=== PATIENT | female | born 1960 | race African-American/Black ===

== ENCOUNTER 2017-09-15 13:20 | Inpatient (IN) | payer MEDICARE ==
--- NOTE | 2017-09-15 13:56 | Consultation ---
History of Present Illness Consult date: 09/15/17 Requesting physician: LES LAWSON Consult reason: bradycardia History of present illness: The pt is a 57 YO female with a past medical history significant for ESRD on HD , s/p kidney transplant, COPD on home O2, HTN, diastolic dysfunction, subdural hemorrhage. She is followed in our office by Dr. Camarillo. She presented with c/o low BP and slow HR. Pt is lethargic on evaluation and thus HPI is obtained per pt's sister at bedside. Per pt's sister, pt has been in her usual state of health until this AM, when she began to c/o left-sided chest pain. Pt's sister took pt's BP at home and BP was reportedly found to be 60s/30s with HR in 20s and EMS was called. Upon EMS arrival, pt's HR was found to be in 20s and external pacing pads were applied. Admission EKG demonstrated CHB with HR of 27. On evaluation, pt is 100% subcutaneously paced at 60bpm and requiring dopamine gtt for hypotension. Pt remains lethargic. Admission serum K+ 4.7; Ca 9.8; Mg 2.4; BUN/CR 58/9.6. Per pt's sister at bedside, pt has not missed any scheduled dialysis and last underwent HD on Friday. She undergoes HD on MWF schedule, forest supervisor is Dr. Blake. The most recent medication reconciliation in our office does not show that pt was taking any beta blockers - her anti- hypertensive regimen included hydralazine and amlodipine per our records. However, per ED MD, pt may have been taking coreg according to ED medication reconciliation. Pt was taken to laborer general for emergent TVP placement. Echo done 03/2016 showed EF 55-60%, trace MR, mild TR, mild LVH, impaired relaxation. Past History Past Medical History: COPD, dialysis, ESRD, hypertension, stroke Past Surgical History: Other (s/p kidney transplant) Social history: denies: smoking, alcohol abuse, prescription drug abuse Medications and Allergies Allergies Allergy/AdvReac Type Severity Reaction Status Date / Time heparin Allergy Intermediate Itching Verified 02/22/16 09:32 lisinopril AdvReac Mild COUGH Verified 02/22/16 09:32 Home Medications Medication Instructions Recorded Confirmed Last Taken Type ALBUTEROL Inhaler [ProAir HFA 2 puff IH QID PRN 02/08/16 02/08/16 02/21/16 History Inhaler] ALBUTEROL NEB's [Proventil 0.083% 2.5 mg IH TID PRN 02/08/16 02/08/16 02/21/16 History NEBS] Carvedilol [Coreg] 3.125 mg PO BID 02/08/16 02/08/16 02/22/16 07:00 History Fluticasone [Flonase] 1 spray NS QDAY 02/08/16 02/08/16 02/21/16 History Ipratropium [Atrovent NEB] 0.5 mg IH Q6HRT 02/08/16 02/08/16 02/21/16 History Loratadine [Claritin] 10 mg PO DAILY 02/08/16 02/08/16 02/21/16 History Pantoprazole [Protonix TAB] 20 mg QDAY 02/08/16 02/22/16 02/21/16 History Tadalafil (Nf) [Adcirca (Nf)] 20 mg PO QDAY 02/08/16 02/08/16 02/21/16 History amLODIPine [Norvasc] 5 mg PO DAILY 02/08/16 02/22/16 02/21/16 History Cinacalcet [Sensipar] 30 mg PO DAILY 02/22/16 02/22/16 02/21/16 History Gabapentin [Neurontin] 1 tab PO 3XW 02/22/16 02/22/16 02/21/16 History HYDROcodone/APAP 7.5-325 [[place] 1 each PO Q6HR PRN #50 tablet 02/22/16 Unknown Rx 7.5/325] Losartan Potassium 100 mg PO DAILY 02/22/16 02/22/16 02/22/16 07:00 History Sertraline [Zoloft] 1 tab PO DAILY 02/22/16 02/22/16 02/21/16 History Sevelamer Carbonate [Renvela] 4 tab PO TID 02/22/16 02/22/16 02/21/16 History Sodium Bicarbonate 1 tab PO DAILY 02/22/16 02/22/16 02/21/16 History Zolpidem Tartrate 10 mg PO QHS 02/22/16 02/22/16 02/21/16 History Review of Systems ROS unobtainable: due to mental status Physical Examination General appearance: other (lethargic) HEENT: Positive: PERRL, Normocephaly, Mucus Membranes Moist Neck: Positive: neck supple, trachea midline Cardiac: Positive: S1/S2, Systolic Murmur, Bradycardia Lungs: Positive: Decreased Breath Sounds Neuro: Positive: Other (lethargic) Abdomen: Positive: Soft. Negative: Tender Skin: Positive: Clear. Negative: Rash, Wound Musculoskeletal: No Fluid Collection, No Pain, Normal Range of Motion Extremities: Absent: edema Results 09/15/17 13:44 09/15/17 13:44 - Imaging and Cardiology Echo: report reviewed (03/2016: EF 55-60%, trace MR, mild TR, mild LVH, impaired relaxation. ) EKG: report reviewed, image reviewed EKG interpretations - Telemetry EKG Rhythm: 3rd Degree HB AV and intraventricular conduction: complete (3) AV block Assessment and Plan Assessment: CHB - s/p TVP placement Hypotension - requiring dopamine gtt Chest pain ESRD on HD - s/p kidney transplant HTN COPD on home O2 H/o subdural hemorrhage 5 years ago Plan: Pt s/p TVP placement this afternoon. However, during TVP placement, pt converted from CHB to NSR with HR 60s. Will continue with TVP at backup rate of 40bpm and monitor closely. Cont dopamine gtt. Trend Torrie. F/u echo. Cont to hold all AV akila blocking agents. Tx to CCU. Pt to be admitted per hospitalists. Obtain EP consultation for PPM candidacy. Assessment and plan reviewed with pt's sister at bedside. The patient has been seen in conjunction with Dr. Rosenberg who agrees with the assessment and plan of care.
--- NOTE | 2017-09-15 13:57 | Emergency Department Report ---
HPI - General Time Seen by Provider: 09/15/17 13:35 - HPI HPI: This 57-year-old [place] female who presents to the emergency department by EMS with complaint of left-sided chest pain, hypotension and bradycardia. The patient has end-stage renal disease on hemodialysis on Friday/Friday/Friday and did have her dialysis on Friday. However she did not have dialysis today secondary to her complaint of chest pain, hypotension and still heart rate. She also has a history of COPD and is oxygen dependent at 3 L by nasal cannula. She was given a 150 mL bolus of IV fluid by EMS and placed on a external pacer and was given 2 mg of Versed to attempt to tolerate the pacing. Her primary care physician is Dr. Jennifer Cuello, her lock tender is Dr. Merino, her construction checker is Dr. Dolan. The patient herself is a poor historian secondary to her current medical condition but her sister is currently bedside providing some information. ED Past Medical Hx - Past Medical History Hx Hypertension: Yes Hx Congestive Heart Failure: (PULMONARY HTN) Hx Diabetes: No Hx GERD: Yes (SOMETIMES) Hx Renal Disease: (KIDNEY TRANSPLANT MARGARET 2000) Hx COPD: Yes - Social History Smoking Status: Never Smoker - Medications Home Medications: Home Medications Medication Instructions Recorded Confirmed Last Taken Type ALBUTEROL Inhaler [ProAir HFA 2 puff IH QID PRN 02/08/16 02/08/16 02/21/16 History Inhaler] ALBUTEROL NEB's [Proventil 0.083% 2.5 mg IH TID PRN 02/08/16 02/08/16 02/21/16 History NEBS] Carvedilol [Coreg] 3.125 mg PO BID 02/08/16 02/08/16 02/22/16 07:00 History Fluticasone [Flonase] 1 spray NS QDAY 02/08/16 02/08/16 02/21/16 History Ipratropium [Atrovent NEB] 0.5 mg IH Q6HRT 02/08/16 02/08/16 02/21/16 History Loratadine [Claritin] 10 mg PO DAILY 02/08/16 02/08/16 02/21/16 History Pantoprazole [Protonix TAB] 20 mg QDAY 02/08/16 02/22/16 02/21/16 History Tadalafil (Nf) [Adcirca (Nf)] 20 mg PO QDAY 02/08/16 02/08/16 02/21/16 History amLODIPine [Norvasc] 5 mg PO DAILY 02/08/16 02/22/16 02/21/16 History Cinacalcet [Sensipar] 30 mg PO DAILY 02/22/16 02/22/16 02/21/16 History Gabapentin [Neurontin] 1 tab PO 3XW 02/22/16 02/22/16 02/21/16 History HYDROcodone/APAP 7.5-325 [[place] 1 each PO Q6HR PRN #50 tablet 02/22/16 Unknown Rx 7.5/325] Losartan Potassium 100 mg PO DAILY 02/22/16 02/22/16 02/22/16 07:00 History Sertraline [Zoloft] 1 tab PO DAILY 02/22/16 02/22/16 02/21/16 History Sevelamer Carbonate [Renvela] 4 tab PO TID 02/22/16 02/22/16 02/21/16 History Sodium Bicarbonate 1 tab PO DAILY 02/22/16 02/22/16 02/21/16 History Zolpidem Tartrate 10 mg PO QHS 02/22/16 02/22/16 02/21/16 History ED Review of Systems ROS: Stated complaint: SLOW HEART RATE Other details as noted in HPI Comment: Unobtainable due to pts medical conditions Cardiovascular: chest pain Physical Exam - Physical Exam Physical Exam: GENERAL: Patient is ill-appearing. HENT: Normocephalic. Atraumatic. Patient has moist mucous membranes. EYES: Extraocular motions are intact. Pupils equal reactive to light bilaterally. NECK: Supple. Trachea is midline. CHEST/LUNGS: Clear to auscultation. There is no respiratory distress noted. HEART/CARDIOVASCULAR: Regular. There is significant bradycardia. There is no murmur. ABDOMEN: Abdomen is soft, nontender. Patient has normal bowel sounds. There is no abdominal distention. SKIN: Skin is warm and dry. NEURO: The patient is very fatigued but is arousable. The patient is responsive to her sister in [place] but is not following many commands. Withdraws from painful stimuli. MUSCULOSKELETAL: There is no tenderness or deformity. There is no evidence of acute injury. ED Course - Consultations Consultation #1: The patient's lock tender is Dr. Merino, [facility] was contacted and the PA Fatemeh Harrell came down to see the patient. She agrees with the assessment that the EKG shows complete heart block and the patient will be taken to the collaborating supervising physician for a trans-venous pacer. 09/15/17 13:55 ED Medical Decision Making - Lab Data Result diagrams: 09/15/17 13:44 09/15/17 13:44 - EKG Data -: EKG Interpreted by Me - EKG Data When compared to previous EKG there are: previous EKG unavailable Interpretation: other (EKG appears to be a third-degree/complete heart block with a rate of 27 weeks per minute.) - Radiology Data Radiology results: image reviewed interpreted by me: Chest x-ray shows some mild cardiomegaly and pulmonary vascular congestion. No pneumonia or pneumothorax. - Medical Decision Making This patient presented from home with complaint of some chest pain, hypotension and bradycardia. EKG showed a complete heart block. She was given some atropine which only worked for about 1 minute and therefore she was placed back on external pacemaker. As there was suspicion that the patient might have hyperkalemia, and while waiting for the lab values to return, the patient was given some calcium chloride to stabilize the myocardium. She was placed on a dopamine drip secondary to her hypotension. Cardiology was contacted and came bedside and decided to take her to the collaborating supervising physician for transvenous pacemaker placement. She will most likely go from there to the ICU. Nephrology has been contacted. Patient accepted for admission by the hospitalist, Dr. Zhao. Critical Care Time: Yes Critical care time in (mins) excluding proc time.: 35 Critical care attestation.: If time is entered above; I have spent that time in minutes in the direct care of this critically ill patient, excluding procedure time. Critical care time was spent on this patient and doing her initial evaluation, multiple re- evaluations, ordering of ACLS medications and pressors, monitoring and supervising transcutaneous pacemaking, discussion with the lock tender and hospitalist services. Critical Care Time: 35 minutes ED Disposition Clinical Impression: Complete heart block, Bradycardia, ESRD on dialysis Chest pain Qualifiers: Chest pain type: unspecified Qualified Code(s): R07.9 - Chest pain, unspecified Hypotension Qualifiers: Hypotension type: unspecified hypotension type Qualified Code(s): I95.9 - Hypotension, unspecified Disposition: DC-09 OP ADMIT IP TO THIS HOSP Is pt being admited?: Yes Condition: Serious Instructions: Chest Pain (ED) Time of Disposition: 15:23
[2017-09-15 14:09] LABS: Hematocrit 35.1 % (30.3-42.9); Hemoglobin 10.9 gm/dl (10.1-14.3); Mean Corpuscular Volume 96 fl (79-97); Red Blood Count 3.67 M/mm3 (3.65-5.03)
[2017-09-15 14:10] LABS: Basophils # (Auto) 0.1 K/mm3 (0.0-0.1); Basophils % (Auto) 1.3 % (0.0-1.8); Eosinophils % (Auto) 0.6 % (0.0-4.3); Lymphocytes # (Auto) 0.9 K/mm3 (1.2-5.4); Mean Corpuscular HGB Conc 31 % (30-34); Mean Corpuscular Hemoglobin 30 pg (28-32); Monocytes # (Auto) 0.3 K/mm3 (0.0-0.8); Monocytes % (Auto) 5.9 % (0.0-7.3); Platelet Count 86 K/mm3 (140-440); Red Cell Distribution Width 16.8 % (13.2-15.2)
[2017-09-15 14:14] LABS: INR 1.24 (0.87-1.13)
[2017-09-15 14:15] LABS: Partial Thromboplastin Time 37.3 Sec. (24.2-36.6)
--- NOTE | 2017-09-15 14:20 | XRay Report ---
AP CHEST: HISTORY: chest pain Compared to 12/29/11. Mild cardiomegaly and central pulmonary venous congestion are again noted. There is poor inspiration but the lungs are grossly clear. No large pleural effusion or pneumothorax. Borderline osteopenia. IMPRESSION: Mild cardiomegaly and pulmonary venous congestion.
[2017-09-15 14:25] LABS: Albumin 3.3 g/dL (3.9-5); Calcium 9.8 mg/dL (8.4-10.2); Magnesium 2.4 mg/dL (1.7-2.3)
[2017-09-15] MEDS ORDERED: NACL 0.9% 500 ML 500 ML ONE ×2 (14:46)
[2017-09-15] MEDS ORDERED: XYLOCAINE 2% INFILTRATI ONE (14:46)
[2017-09-15] MEDS ORDERED: ZOFRAN ONE (14:55)
[2017-09-15] MEDS ORDERED: ALUM-MAG HYDROX-SIMETH 200-200-20MG/5ML PO PRN (15:43)
--- NOTE | 2017-09-15 15:44 | History and Physical Report ---
History of Present Illness Chief complaint: Chest Pain History of present illness: 57 YO Female with HTN, ESRD on HD(M,W,F), COPD, Chronic Respiratory Failure on 3L Home oxygen, Diastolic CHF, Pulmonary HTN, SDH presents to ED for evaluation. Pt unable to provide history due to lethargy and confusion. Pt history taken from medical record, and ED staff. As per staff, Pt experienced pain in her chest this morning, an a subsequent blood pressure check showed a systolic BP in the 60's. EMS notified, and upon arrival the patient was found to have a heart rate in the 20/s, and was externally paced and transported to [facility] for evaluation and treatment. Pt seen and evaluated in ED and found to be in extremis. Pt subcutaneously paced at 60bpm and initiated on dopamine drip for cardiogenic shock. Pt is lethargic but is able to protect her airway. Cardiology consulted in ED and petient taken urgently to laborer/grade check. Pt subsequently admitted to ICU. Past History Past Medical History: COPD, dialysis, ESRD, hypertension, stroke Past Surgical History: Other (s/p kidney transplant) Social history: denies: smoking, alcohol abuse, prescription drug abuse Family history: hypertension Medications and Allergies Allergies Allergy/AdvReac Type Severity Reaction Status Date / Time heparin Allergy Intermediate Itching Verified 02/22/16 09:32 lisinopril AdvReac Mild COUGH Verified 02/22/16 09:32 Home Medications Medication Instructions Recorded Confirmed Last Taken Type ALBUTEROL NEB's [Proventil 0.083% 2.5 mg IH TID PRN 02/08/16 02/08/16 02/21/16 History NEBS] Carvedilol [Coreg] 3.125 mg PO BID 02/08/16 02/08/16 02/22/16 07:00 History Fluticasone [Flonase] 1 spray NS QDAY 02/08/16 02/08/16 02/21/16 History Ipratropium [Atrovent NEB] 0.5 mg IH Q6HRT 02/08/16 02/08/16 02/21/16 History Pantoprazole [Protonix TAB] 20 mg QDAY 02/08/16 02/22/16 02/21/16 History Tadalafil (Nf) [Adcirca (Nf)] 20 mg PO QDAY 02/08/16 02/08/16 02/21/16 History Cinacalcet [Sensipar] 30 mg PO DAILY 02/22/16 02/22/16 02/21/16 History Gabapentin [Neurontin] 1 tab PO 3XW 02/22/16 02/22/16 02/21/16 History Losartan Potassium 100 mg PO DAILY 02/22/16 02/22/16 02/22/16 07:00 History Sertraline [Zoloft] 1 tab PO DAILY 02/22/16 02/22/16 02/21/16 History Sevelamer Carbonate [Renvela] 4 tab PO TID 02/22/16 02/22/16 02/21/16 History Sodium Bicarbonate 1 tab PO DAILY 02/22/16 02/22/16 02/21/16 History Zolpidem Tartrate 10 mg PO QHS 02/22/16 02/22/16 02/21/16 History Omeprazole [Omeprazole] 20 mg PO DAILY 09/15/17 09/15/17 09/14/17 History 20mg Review of Systems ROS unobtainable: due to mental status Exam - Constitutional Vitals: Temp Pulse Resp BP Pulse Ox 97.5 F L 60 15 92/57 100 09/15/17 13:20 09/15/17 14:11 09/15/17 14:24 09/15/17 14:06 09/15/17 14:24 General appearance: Present: severe distress - EENT Eyes: Present: PERRL ENT: hearing intact, clear oral mucosa - Neck Neck: Present: supple, normal ROM - Respiratory Respiratory effort: labored Respiratory: bilateral: diminished - Cardiovascular Rhythm: other (bradycardial) Heart Sounds: Present: S1 & S2 - Extremities Extremities: pulses symmetrical, No edema Peripheral Pulses: within normal limits - Abdominal General gastrointestinal: Present: soft, non-tender, non-distended, normal bowel sounds Female genitourinary: Present: normal - Integumentary Integumentary: Present: clear, dry, decreased turgor - Musculoskeletal Musculoskeletal: generalized weakness - Psychiatric Psychiatric: no intact judgment & insight, no memory intact - Neurologic Neurologic: no gait normal Results - Labs CBC & Chem 7: 09/15/17 13:44 09/15/17 13:44 Labs: Abnormal lab results 09/15/17 09/15/17 09/15/17 Range/Units 13:44 13:44 13:44 RDW 16.8 H (13.2-15.2) % Plt Count 86 L (140-440) K/mm3 Lymph # 0.9 L (1.2-5.4) K/mm3 Seg Neutrophils % 72.2 H (40.0-70.0) % PT 16.3 H (12.2-14.9) Sec. INR 1.24 H (0.87-1.13) APTT 37.3 H (24.2-36.6) Sec. Chloride 107.2 H (98-107) mmol/L Carbon Dioxide 19 L (22-30) mmol/L BUN 58 H (7-17) mg/dL Creatinine 9.6 H (0.7-1.2) mg/dL Glucose 173 H (65-100) mg/dL Magnesium 2.40 H (1.7-2.3) mg/dL Total Protein 5.3 L (6.3-8.2) g/dL Albumin 3.3 L (3.9-5) g/dL Assessment and Plan - Patient Problems (1) Cardiogenic shock Current Visit: Yes Status: Acute Plan to address problem: Pt admitted to ICU, IV pressor support, IVF resuscitation, Cardiology consulted , Pt taken urgently to laborer/grade check, monitor bp q shift, telemetry monitoring, The high probability of a clinically significant, sudden or life threatening deterioration of the [cardiac, respiratory, renal] system(s) required my full and direct attention, intervention and personal management. The aggregate critical care time was [66] minutes. This time is in addition to time spent performing reported procedures but includes the following: [x] Data Review and interpretation [x] Patient assessment and monitoring of vital signs [x] Documentation [x] Medication orders and management (2) CHB (complete heart block) Current Visit: Yes Status: Acute Plan to address problem: Cardiology consulted, Transcutaneous pacing, Pt taken urgently to laborer/grade check for intervention. (3) Acute respiratory failure Current Visit: Yes Status: Acute Qualifiers: Respiratory failure complication: hypoxia Qualified Code(s): J96.01 - Acute respiratory failure with hypoxia Plan to address problem: Supplemental oxygen,nebs, aspiration precautions, pulmonary toilet, pulmonary consulted, NIPPV as clinically indicated, (4) ESRD (end stage renal disease) Current Visit: Yes Status: Acute Plan to address problem: Nephrology consulted for dialysis, monitor uop q shift, dialysis when clinically stable. (5) Encephalopathy Current Visit: Yes Status: Acute Plan to address problem: Metabolic encephalopathy: dialysis as per renal team, supportive care, treat cardiogenic shock, (6) DVT prophylaxis Current Visit: Yes Status: Acute
[2017-09-15] MEDS ORDERED: CALCIUM CHLORIDE IV ONE (16:00)
[2017-09-15] MEDS ORDERED: ATROPINE 0.1% (CARDIAC) ONE (16:00)
[2017-09-15] MEDS ORDERED: INTROPIN DRIP 800 MG/D5W 250 ML IV ONE (16:00)
--- NOTE | 2017-09-15 16:11 | Event Note ---
I was called about the patient came in here with complete heart block Patient has gone to the cardiac catheter lab Chart was reviewed in entirety potassium is currently normal There is no indication for acute emergent dialysis We will make an attempt to evaluate the patient in the morning
--- NOTE | 2017-09-15 17:58 | Cardiac Catherization Report ---
TEMPORARY PACEMAKER INSERTION: HISTORY OF PRESENT ILLNESS: The patient is a 57-year-old [place] female with history of end-stage renal disease on hemodialysis, status post kidney transplant, history of COPD, on home oxygen, history of essential hypertension, history of subdural hemorrhage being followed by Dr. Jean in the office, was noted to lethargic, and was noted by his sister that the patient is complaining of chest pain and blood pressure was found to be low and heart rate was found to be low, heart rate in 20s and blood pressures 60/30. Paramedics were called and heart rate was found to be in 20s and external pacemaker packs were applied. Admission EKG showed complete heart block with heart rate up to 27 beats per minute. The patient was started on dopamine and the patient was found to be blood pressure in 60 systolic. Because of this, we were called in consultation. Hence, a temporary pacemaker was planned because of low heart rate. INDICATION: for temporary pacemaker is hypotension with complete AV block and underlying escape junctional beats. TEMPORARY PACEMAKER PROCEDURE: While the patient was brought to the catheterization laboratory, patient is lethargic,hence no IV sedation was given ; however, she is nauseated, requiring 4 mg of Zofran. The patient also is vomiting clear liquid requiring some suctioning. Otherwise, the patient was comfortable. The patient was prepared in standard fashion. Right groin was prepared with Betadine solution and sterile drapes were applied. Local anesthesia was given in the right groin area using 2% Xylocaine. Right femoral vein puncture was made without difficulty using a 5-[place] micropuncture needle. A 6-[place] sheath was introduced. Subsequently, a 5-[place] balloon tipped temporary pacemaker was advanced under fluoroscopy into the right ventricular apex. Once in good position, transcutaneous pacemaker venous pacing was discontinued. The patient's heart rate in 60s, in sinus rhythm. Hence, temporary pacemaker settings were tested while the heart rate is at 70 beats per minute. Good capture was noted 0.5 mV. The patient, as mentioned above, has underlying sinus rhythm in 60s. Temporary pacemaker settings were left at mV of 2.0 with a minimal ventricular rate of 40 beats per minute. Temporary pacemaker was secured to the right groin. Right leg will be held stable in straight position with restrains. The patient tolerated the procedure well. No untoward complications were noted. At the end of the procedure, the patient is a regular sinus rhythm at 60 beats per minute. FINAL IMPRESSION: Uncomplicated temporary pacemaker using right femoral vein was inserted for complete AV block and hypotension, heart rate in 20s, mostly escape rhythm at 20 beats per minute. JOB# [id number] IGLESIA/CANDELARIA HINSON
[2017-09-15 18:42] LABS: Creatine Kinase MB 1.5 ng/mL (0.0-4.0)
--- NOTE | 2017-09-15 19:29 | Event Note ---
Date: 09/15/17 57 Female admitted with complete heart block HR 27 with past medical history of ESRD on HD (fistula on RUE, abandoned fistula LUE, COPD on home oxygen, Scoliosis, hypertension, Chronic diastolic heart failure, history of subdural hematoma. Pt does not speak much Chinese. I spoke at length with the patients sister regarding options. Recommend ECHO, Left upper extremity venogram to evaluate patency.
[2017-09-15] MEDS: PERCOCET 5/325 PO PRN (21:38)
[2017-09-15] MEDS: DUONEB *Not for PRN Use IH SCH (22:11)
[2017-09-16] MEDS: DUONEB *Not for PRN Use IH SCH ×4 (02:39→20:09)
[2017-09-16] MEDS: PERCOCET 5/325 PO PRN ×4 (03:41→21:11)
[2017-09-16] MEDS: APRESOLINE IV PRN ×3 (03:44→17:37)
[2017-09-16 05:20] LABS: Calcium 9.6 mg/dL (8.4-10.2); Magnesium 2.5 mg/dL (1.7-2.3)
[2017-09-16] MEDS: D50W (25GM) Vial IV PRN (07:50)
[2017-09-16] MEDS ORDERED: VASELINE LIP THERAPY TP PRN (07:56)
--- NOTE | 2017-09-16 10:23 | Consultation ---
History of Present Illness - History of Present Illness Thank you for the consultation patient was evaluated today. Social information from patient's sister over the phone, dialysis nurse practioner Allyson Walton History of present illness Patient is a 57-year-old [place] female who is currently in maintenance hemodialysis, presented to the hospital with complaints of significant hypotension and bradycardia according to sister her systolic blood pressure wasn 't 63 range and heart rate was in 30s she called EMS and transported her to ER where she was noted to be in complete heart block and was immediately taken to the Cryptological Technician. Patient has a transvenous pacemaker placed potassium was normal. According to patient's sister she does not comply with medical advise and often time that would include poor compliance with diet lifestyle fluid etc this was also confirmed with my dialysis nurse practitioner. patient is currently on maintenance hemodialysis Friday and Friday Patient does complain of mild shortness of breath she is currently in the ICU set up Past medical history is significant for end-stage renal disease currently on maintenance hemodialysis Anemia and end-stage renal disease Secondary hyperparathyroidism Chronic noncompliance with fluid diet medical advice Allergies: heparin and lisinopril Social history: no history of recent alcohol drug or tobacco use Family history: noncontributory for renal lipid disorder Review of system is positive for profound hypotension bradycardia according to sister heart rate was down to 36 range and blood pressure wasn't 60 systolic Patient is very poorly compliant with fluid and often time does carry excess amount of fluid during dialysis Complete review of systems obtained pertinent positive above other's review of systems negative Physical examination General: No acute distress HEENT: Oral mucosa moist no pharyngeal erythema no pallor or icterus no uremic order Neck: Supple no evidence of any thyromegaly trachea midline no JVD Chest: Clear to auscultation no crackles are also wheezes anteriorly Heart: Regular rate and rhythm S1-S2 heard no S3-S4 Abdomen: Soft nontender no renal bruit no CVA tenderness no suprapubic fullness no organomegaly Extremity: Minimal edema dry skin no peripheral cyanosis pulses palpable Neurological: Alert awake follows command grossly nonfocal examination Back: Nontender thoracolumbar spine Musculoskeletal: No joint effusion noted Skin: No petechial rash/noted Assessment and plan 1. end-stage renal disease: Patient likely will require a short treatment today and then will follow up with her regular treatment tomorrow depending on how she tolerates the treatment today, potassium upon arrival was 4.7, 2.anemia and end-stage renal disease: To monitor and follow, hemoglobin 10.9 to follow 3.secondary hyperparathyroidism: Monitor and follow educated about avoiding processed food keeping phosphorus under 5 and PTH under 600 4.chronically noncompliant patient counseled and educated discussed with patient 's sister over the phone 5.mild tachycardia today discussed with patient's sister with patient's consent plan of renal care was discussed at length all questions were answered Patient needs to be more compliant and follow the medical advice in the absence of which overall prognosis will be very poor mortality risk will be high Nature and issue of renal-related issues were discussed with patient, all questions were answered and simple Indian We'll continue to follow and make recommendations from renal standpoint If you have any questions please feel free to contact me at [phone] Past History Past Medical History: COPD, dialysis, ESRD, hypertension, stroke Past Surgical History: Other (s/p kidney transplant) Social history: denies: smoking, alcohol abuse, prescription drug abuse Family history: hypertension Medications and Allergies Allergies Allergy/AdvReac Type Severity Reaction Status Date / Time heparin Allergy Intermediate Itching Verified 02/22/16 09:32 lisinopril AdvReac Mild COUGH Verified 02/22/16 09:32 Home Medications Medication Instructions Recorded Confirmed Last Taken Type ALBUTEROL NEB's [Proventil 0.083% 2.5 mg IH TID PRN 02/08/16 09/15/17 09/14/17 History NEBS] 2.5mg Carvedilol [Coreg] 25 mg PO BID 02/08/16 09/15/17 09/14/17 History 25mg Fluticasone [Flonase] 1 spray NS QDAY 02/08/16 09/15/17 09/14/17 History 1 Ipratropium [Atrovent NEB] 0.5 mg IH Q6HRT 02/08/16 09/15/17 09/14/17 History 1 Pantoprazole [Protonix TAB] 40 mg PO QDAY 02/08/16 09/15/17 09/14/17 History 40mg Tadalafil (Nf) [Adcirca (Nf)] 20 mg PO QDAY 02/08/16 09/15/17 09/14/17 History 20mg Cinacalcet [Sensipar] 30 mg PO DAILY 02/22/16 09/15/17 09/14/17 History 30mg Gabapentin [Neurontin] 1 tab PO 3XW 02/22/16 09/15/17 09/14/17 History 1 Losartan Potassium 100 mg PO DAILY 02/22/16 09/15/17 09/14/17 History 100mg Sertraline [Zoloft] 1 tab PO DAILY 02/22/16 09/15/17 09/14/17 History 1 Sevelamer Carbonate [Renvela] 4 tab PO TID 02/22/16 09/15/17 09/14/17 History 4 Sodium Bicarbonate 1 tab PO DAILY 02/22/16 09/15/17 09/14/17 History 1 Zolpidem Tartrate 10 mg PO QHS 02/22/16 09/15/17 09/14/17 History 10mg Diltiazem Xt [Taztia Xt] 180 mg PO DAILY 09/15/17 09/15/17 09/14/17 History 180mg Omeprazole [Omeprazole] 20 mg PO DAILY 09/15/17 09/15/17 09/14/17 History 20mg cloNIDine [Catapres] 0.2 mg PO TID 09/15/17 09/15/17 09/14/17 History 0.2mg Active Meds: Active Medications Al Hydrox/Mg Hydrox/Simethicone (Alum-Mag Hydrox-Simeth [id number]/5ml) 30 ml PO Q4H PRN PRN Reason: Indigestion Albuterol/Ipratropium (Duoneb *Not For Prn Use*) 1 ampul IH Q6HRT [facility] Last Admin: 09/16/17 09:00 Dose: 1 ampul Bisacodyl (Dulcolax) 10 mg WI QDAY PRN PRN Reason: constipation unrelieved by MOM Dextrose (D50w (25gm) Vial) 25 gm IV PRN PRN PRN Reason: Hypoglycemia Last Admin: 09/16/17 07:50 Dose: 25 gm Hydralazine HCl (Apresoline) 10 mg IV Q6HR PRN PRN Reason: Systolic B/p greather than 160 Last Admin: 09/16/17 09:55 Dose: 10 mg Hydrophilic Ointment (Vaseline Lip Therapy) 1 applic TP DIRECT PRN PRN Reason: DRY LIPS Magnesium Hydroxide (Milk Of Magnesia) 30 ml PO Q4H PRN PRN Reason: Constipation Oxycodone/Acetaminophen (Percocet 5/325) 1 tab PO Q6H PRN PRN Reason: Pain Last Admin: 09/16/17 09:55 Dose: 1 tab Exam - Vital Signs Vital signs: Vital Signs Pulse Resp 54 L 17 09/15/17 13:14 09/15/17 13:14 Results - Lab Results 09/15/17 13:44 09/16/17 04:04 Most recent lab results Calcium 9.6 mg/dL (8.4-10.2) 09/16/17 04:04 Magnesium 2.50 mg/dL (1.7-2.3) H 09/16/17 04:04
--- NOTE | 2017-09-16 10:34 | Progress Note ---
Assessment and Plan /Cardiogenic shock, improved Pt admitted to ICU, started IV pressor support with dobutamin ( off since last night) Cardiology following, Pt is s/p TVP placement, /HTN, uncontrolled hold all BB, CCB started on hydralazine cont to monitor /Acute on chronic respiratory failure likely from cardiogenic shock, CXR suggestive for pulmonary congestion she is on home O2 cont supplemental O2, duenebs /COPD cont O2 n/c. nebulizer /CHB (complete heart block) Cardiology consulted, s/p Transcutaneous pacing, Pt taken urgently to tutorial laboratory supervisor for intervention. Now on TVP /ESRD has h/o renal transplant Nephrology consulted for dialysis, monitor uop q shift, dialysis likely today. /H/o hemorrhagic CVA shows no focal deficit now closely monitor with frequent neuro assessment / Encephalopathy likely Metabolic encephalopathy: appears more alert and awake today dialysis as per renal team, supportive care, treat cardiogenic shock, /DVT prophylaxis lovenox The high probability of a clinically significant, sudden or life threatening deterioration of the [cardiac, respiratory, renal] system(s) required my full and direct attention, intervention and personal management. The aggregate critical care time was [66] minutes. This time is in addition to time spent performing reported procedures but includes the following: [x] Data Review and interpretation [x] Patient assessment and monitoring of vital signs [x] Documentation [x] Medication orders and management Brief history: The pt is a 57 YO female with a past medical history significant for ESRD on HD, s/p kidney transplant, COPD on home O2, HTN, diastolic dysfunction, subdural hemorrhage is followed by Dr. Camarillo presented with c/o low BP and slow HR. Per pt's sister, BP at home was reportedly found to be 60s/ 30s with HR in 20s and EMS was called. Upon EMS arrival, pt's HR was found to be in 20s and external pacing pads were applied and initiated dopamine gtt for hypotension. Pt was then taken to tutorial laboratory supervisor for emergent TVP placement. Radiological test: CXR - mild cardiomegaly and pulmonary venous congestion Hospitalist Physical exam: GENERAL: elderly female lying on bed appeared to be lethargic. HEENT: Normocephalic. Atraumatic. No conjunctival congestion or icterus. Patient has very dry mucous membranes. NECK: Supple. Trachea midline. CHEST/LUNGS: few crackles auscultated bilaterally, breathing nonlabored. on n/c HEART/CARDIOVASCULAR: S1 and S2 positive. ABDOMEN: Abdomen is soft, nontender. Patient has normal bowel sounds. SKIN: There is no rash. Warm and dry. NEURO: No focal motor deficit. Follows command. MUSCULOSKELETAL: No joint effusion or tenderness. EXTRIMITY: No edema, no cyanosis or clubbing. TVP in place via right groin, site c/d/i with no evidence of bleeding. Subjective Date of service: 09/16/17 Interval history: Pt seen and examined Pt resting in bed, c/o headache. HR 90s, BPs elevated. No family at bedside. Pt has been NPO since PR for PPM placement. Objective - Constitutional Vitals: Vital Signs - 12hr 09/15/17 09/15/17 09/15/17 22:38 22:40 22:45 Temperature Pulse Rate 81 Pulse Rate [ Bilateral Throughout] Pulse Rate [ From Monitor] Pulse Rate [ Left Dorsalis Pedis] Pulse Rate [ Left Radial] Pulse Rate [ Right Dorsalis Pedis] Pulse Rate [ Right Radial] Respiratory 20 10 L Rate Respiratory Rate [Bilateral Throughout] Blood Pressure 146/68 O2 Sat by Pulse 95 93 Oximetry 09/15/17 09/15/17 09/15/17 22:50 23:00 23:10 Temperature Pulse Rate 78 76 77 Pulse Rate [ Bilateral Throughout] Pulse Rate [ From Monitor] Pulse Rate [ Left Dorsalis Pedis] Pulse Rate [ Left Radial] Pulse Rate [ Right Dorsalis Pedis] Pulse Rate [ Right Radial] Respiratory 14 14 12 Rate Respiratory Rate [Bilateral Throughout] Blood Pressure 146/68 136/68 136/68 O2 Sat by Pulse 93 94 95 Oximetry 09/15/17 09/15/17 09/15/17 23:20 23:30 23:40 Temperature Pulse Rate 76 86 78 Pulse Rate [ Bilateral Throughout] Pulse Rate [ From Monitor] Pulse Rate [ Left Dorsalis Pedis] Pulse Rate [ Left Radial] Pulse Rate [ Right Dorsalis Pedis] Pulse Rate [ Right Radial] Respiratory 13 14 13 Rate Respiratory Rate [Bilateral Throughout] Blood Pressure 136/68 136/68 136/68 O2 Sat by Pulse 95 95 92 Oximetry 09/15/17 09/16/17 09/16/17 23:50 00:00 00:10 Temperature 98.8 F Pulse Rate 77 80 78 Pulse Rate [ Bilateral Throughout] Pulse Rate [ 81 From Monitor] Pulse Rate [ 81 Left Dorsalis Pedis] Pulse Rate [ 81 Left Radial] Pulse Rate [ 81 Right Dorsalis Pedis] Pulse Rate [ 81 Right Radial] Respiratory 15 19 12 Rate Respiratory Rate [Bilateral Throughout] Blood Pressure 136/68 136/65 136/65 O2 Sat by Pulse 93 92 93 Oximetry 09/16/17 09/16/17 09/16/17 00:20 00:30 00:40 Temperature Pulse Rate 80 82 79 Pulse Rate [ Bilateral Throughout] Pulse Rate [ From Monitor] Pulse Rate [ Left Dorsalis Pedis] Pulse Rate [ Left Radial] Pulse Rate [ Right Dorsalis Pedis] Pulse Rate [ Right Radial] Respiratory 14 20 16 Rate Respiratory Rate [Bilateral Throughout] Blood Pressure 136/65 136/65 136/65 O2 Sat by Pulse 92 93 90 Oximetry 09/16/17 09/16/17 09/16/17 00:50 01:00 01:10 Temperature Pulse Rate 79 80 83 Pulse Rate [ Bilateral Throughout] Pulse Rate [ From Monitor] Pulse Rate [ Left Dorsalis Pedis] Pulse Rate [ Left Radial] Pulse Rate [ Right Dorsalis Pedis] Pulse Rate [ Right Radial] Respiratory 14 14 14 Rate Respiratory Rate [Bilateral Throughout] Blood Pressure 136/65 148/69 148/69 O2 Sat by Pulse 92 93 93 Oximetry 09/16/17 09/16/17 09/16/17 01:20 01:30 01:40 Temperature Pulse Rate 80 82 82 Pulse Rate [ Bilateral Throughout] Pulse Rate [ From Monitor] Pulse Rate [ Left Dorsalis Pedis] Pulse Rate [ Left Radial] Pulse Rate [ Right Dorsalis Pedis] Pulse Rate [ Right Radial] Respiratory 15 17 14 Rate Respiratory Rate [Bilateral Throughout] Blood Pressure 148/69 148/69 148/69 O2 Sat by Pulse 94 93 92 Oximetry 09/16/17 09/16/17 09/16/17 01:50 02:00 02:10 Temperature Pulse Rate 82 80 82 Pulse Rate [ Bilateral Throughout] Pulse Rate [ From Monitor] Pulse Rate [ Left Dorsalis Pedis] Pulse Rate [ Left Radial] Pulse Rate [ Right Dorsalis Pedis] Pulse Rate [ Right Radial] Respiratory 14 15 12 Rate Respiratory Rate [Bilateral Throughout] Blood Pressure 148/69 159/75 159/75 O2 Sat by Pulse 93 89 89 Oximetry 09/16/17 09/16/17 09/16/17 02:20 02:30 02:40 Temperature Pulse Rate 81 80 80 Pulse Rate [ Bilateral Throughout] Pulse Rate [ From Monitor] Pulse Rate [ Left Dorsalis Pedis] Pulse Rate [ Left Radial] Pulse Rate [ Right Dorsalis Pedis] Pulse Rate [ Right Radial] Respiratory 13 15 15 Rate Respiratory Rate [Bilateral Throughout] Blood Pressure 164/66 175/65 175/65 O2 Sat by Pulse 89 88 91 Oximetry 09/16/17 09/16/17 09/16/17 02:41 02:50 03:00 Temperature Pulse Rate 82 84 Pulse Rate [ 80 Bilateral Throughout] Pulse Rate [ From Monitor] Pulse Rate [ Left Dorsalis Pedis] Pulse Rate [ Left Radial] Pulse Rate [ Right Dorsalis Pedis] Pulse Rate [ Right Radial] Respiratory 13 16 Rate Respiratory 18 Rate [Bilateral Throughout] Blood Pressure 183/57 186/84 O2 Sat by Pulse 93 90 Oximetry 09/16/17 09/16/17 09/16/17 03:08 03:10 03:20 Temperature Pulse Rate 84 85 Pulse Rate [ 82 Bilateral Throughout] Pulse Rate [ From Monitor] Pulse Rate [ Left Dorsalis Pedis] Pulse Rate [ Left Radial] Pulse Rate [ Right Dorsalis Pedis] Pulse Rate [ Right Radial] Respiratory 15 15 Rate Respiratory 18 Rate [Bilateral Throughout] Blood Pressure 186/84 190/90 O2 Sat by Pulse 89 89 Oximetry 09/16/17 09/16/17 09/16/17 03:30 03:40 03:41 Temperature Pulse Rate 85 91 H Pulse Rate [ Bilateral Throughout] Pulse Rate [ From Monitor] Pulse Rate [ Left Dorsalis Pedis] Pulse Rate [ Left Radial] Pulse Rate [ Right Dorsalis Pedis] Pulse Rate [ Right Radial] Respiratory 12 12 18 Rate Respiratory Rate [Bilateral Throughout] Blood Pressure 193/91 193/91 O2 Sat by Pulse 91 91 Oximetry 09/16/17 09/16/17 09/16/17 03:44 03:50 04:00 Temperature Pulse Rate 85 86 87 Pulse Rate [ Bilateral Throughout] Pulse Rate [ From Monitor] Pulse Rate [ Left Dorsalis Pedis] Pulse Rate [ Left Radial] Pulse Rate [ Right Dorsalis Pedis] Pulse Rate [ Right Radial] Respiratory 16 14 Rate Respiratory Rate [Bilateral Throughout] Blood Pressure 193/91 183/84 170/82 O2 Sat by Pulse 89 90 Oximetry 09/16/17 09/16/17 09/16/17 04:10 04:20 04:30 Temperature Pulse Rate 86 86 87 Pulse Rate [ Bilateral Throughout] Pulse Rate [ From Monitor] Pulse Rate [ Left Dorsalis Pedis] Pulse Rate [ Left Radial] Pulse Rate [ Right Dorsalis Pedis] Pulse Rate [ Right Radial] Respiratory 16 12 13 Rate Respiratory Rate [Bilateral Throughout] Blood Pressure 170/82 174/78 169/82 O2 Sat by Pulse 89 91 92 Oximetry 09/16/17 09/16/17 09/16/17 04:40 04:41 04:50 Temperature Pulse Rate 86 85 Pulse Rate [ Bilateral Throughout] Pulse Rate [ From Monitor] Pulse Rate [ Left Dorsalis Pedis] Pulse Rate [ Left Radial] Pulse Rate [ Right Dorsalis Pedis] Pulse Rate [ Right Radial] Respiratory 13 19 13 Rate Respiratory Rate [Bilateral Throughout] Blood Pressure 169/82 156/82 O2 Sat by Pulse 92 93 Oximetry 09/16/17 09/16/17 09/16/17 05:00 05:10 05:20 Temperature Pulse Rate 91 H 88 87 Pulse Rate [ Bilateral Throughout] Pulse Rate [ From Monitor] Pulse Rate [ Left Dorsalis Pedis] Pulse Rate [ Left Radial] Pulse Rate [ Right Dorsalis Pedis] Pulse Rate [ Right Radial] Respiratory 20 14 17 Rate Respiratory Rate [Bilateral Throughout] Blood Pressure 182/89 182/89 184/80 O2 Sat by Pulse 93 92 91 Oximetry 09/16/17 09/16/17 09/16/17 05:35 05:40 05:50 Temperature Pulse Rate 86 87 88 Pulse Rate [ Bilateral Throughout] Pulse Rate [ From Monitor] Pulse Rate [ Left Dorsalis Pedis] Pulse Rate [ Left Radial] Pulse Rate [ Right Dorsalis Pedis] Pulse Rate [ Right Radial] Respiratory 14 14 14 Rate Respiratory Rate [Bilateral Throughout] Blood Pressure 185/88 O2 Sat by Pulse 90 91 88 Oximetry 09/16/17 09/16/17 09/16/17 06:00 06:10 06:20 Temperature Pulse Rate 87 87 87 Pulse Rate [ Bilateral Throughout] Pulse Rate [ From Monitor] Pulse Rate [ Left Dorsalis Pedis] Pulse Rate [ Left Radial] Pulse Rate [ Right Dorsalis Pedis] Pulse Rate [ Right Radial] Respiratory 12 14 13 Rate Respiratory Rate [Bilateral Throughout] Blood Pressure 186/88 186/90 193/89 O2 Sat by Pulse 89 91 91 Oximetry 09/16/17 09/16/17 09/16/17 06:30 06:40 06:50 Temperature Pulse Rate 88 87 88 Pulse Rate [ Bilateral Throughout] Pulse Rate [ From Monitor] Pulse Rate [ Left Dorsalis Pedis] Pulse Rate [ Left Radial] Pulse Rate [ Right Dorsalis Pedis] Pulse Rate [ Right Radial] Respiratory 16 14 15 Rate Respiratory Rate [Bilateral Throughout] Blood Pressure 193/89 193/88 196/94 O2 Sat by Pulse 89 91 89 Oximetry 09/16/17 09/16/17 09/16/17 07:00 07:10 07:20 Temperature Pulse Rate 87 88 89 Pulse Rate [ Bilateral Throughout] Pulse Rate [ From Monitor] Pulse Rate [ Left Dorsalis Pedis] Pulse Rate [ Left Radial] Pulse Rate [ Right Dorsalis Pedis] Pulse Rate [ Right Radial] Respiratory 16 17 16 Rate Respiratory Rate [Bilateral Throughout] Blood Pressure 196/94 183/92 197/93 O2 Sat by Pulse 89 90 89 Oximetry 09/16/17 09/16/17 09/16/17 07:30 07:39 07:40 Temperature 98.8 F Pulse Rate 92 H 89 Pulse Rate [ Bilateral Throughout] Pulse Rate [ From Monitor] Pulse Rate [ Left Dorsalis Pedis] Pulse Rate [ Left Radial] Pulse Rate [ Right Dorsalis Pedis] Pulse Rate [ Right Radial] Respiratory 15 21 Rate Respiratory Rate [Bilateral Throughout] Blood Pressure 196/94 198/96 O2 Sat by Pulse 90 90 Oximetry 09/16/17 09/16/17 09/16/17 07:50 08:00 08:10 Temperature Pulse Rate 88 91 H 91 H Pulse Rate [ Bilateral Throughout] Pulse Rate [ 91 H From Monitor] Pulse Rate [ Left Dorsalis Pedis] Pulse Rate [ Left Radial] Pulse Rate [ Right Dorsalis Pedis] Pulse Rate [ Right Radial] Respiratory 13 17 21 Rate Respiratory Rate [Bilateral Throughout] Blood Pressure 211/98 198/96 205/98 O2 Sat by Pulse 90 90 89 Oximetry 09/16/17 09/16/17 09/16/17 08:20 08:30 08:40 Temperature Pulse Rate 91 H 87 87 Pulse Rate [ Bilateral Throughout] Pulse Rate [ From Monitor] Pulse Rate [ Left Dorsalis Pedis] Pulse Rate [ Left Radial] Pulse Rate [ Right Dorsalis Pedis] Pulse Rate [ Right Radial] Respiratory 15 15 15 Rate Respiratory Rate [Bilateral Throughout] Blood Pressure 206/98 206/98 205/98 O2 Sat by Pulse 91 91 91 Oximetry 09/16/17 09/16/17 09/16/17 08:59 09:00 09:16 Temperature Pulse Rate Pulse Rate [ 86 90 Bilateral Throughout] Pulse Rate [ From Monitor] Pulse Rate [ Left Dorsalis Pedis] Pulse Rate [ Left Radial] Pulse Rate [ Right Dorsalis Pedis] Pulse Rate [ Right Radial] Respiratory Rate Respiratory 16 18 Rate [Bilateral Throughout] Blood Pressure O2 Sat by Pulse 92 Oximetry 09/16/17 09:55 Temperature Pulse Rate 92 H Pulse Rate [ Bilateral Throughout] Pulse Rate [ From Monitor] Pulse Rate [ Left Dorsalis Pedis] Pulse Rate [ Left Radial] Pulse Rate [ Right Dorsalis Pedis] Pulse Rate [ Right Radial] Respiratory Rate Respiratory Rate [Bilateral Throughout] Blood Pressure 214/107 O2 Sat by Pulse Oximetry - Labs CBC & Chem 7: 09/15/17 13:44 09/16/17 04:04 Labs: Abnormal lab results 09/15/17 09/15/17 09/15/17 Range/Units 13:44 13:44 13:44 RDW 16.8 H (13.2-15.2) % Plt Count 86 L (140-440) K/mm3 Lymph # 0.9 L (1.2-5.4) K/mm3 Seg Neutrophils % 72.2 H (40.0-70.0) % PT 16.3 H (12.2-14.9) Sec. INR 1.24 H (0.87-1.13) APTT 37.3 H (24.2-36.6) Sec. POC ABG pO2 (80-105) Chloride 107.2 H (98-107) mmol/L Carbon Dioxide 19 L (22-30) mmol/L BUN 58 H (7-17) mg/dL Creatinine 9.6 H (0.7-1.2) mg/dL Glucose 173 H (65-100) mg/dL POC Glucose (70-105) Magnesium 2.40 H (1.7-2.3) mg/dL Total Protein 5.3 L (6.3-8.2) g/dL Albumin 3.3 L (3.9-5) g/dL 09/15/17 09/16/17 09/16/17 Range/Units 22:00 04:04 07:35 RDW (13.2-15.2) % Plt Count (140-440) K/mm3 Lymph # (1.2-5.4) K/mm3 Seg Neutrophils % (40.0-70.0) % PT (12.2-14.9) Sec. INR (0.87-1.13) APTT (24.2-36.6) Sec. POC ABG pO2 56 L (80-105) Chloride (98-107) mmol/L Carbon Dioxide 20 L (22-30) mmol/L BUN 65 H (7-17) mg/dL Creatinine 10.5 H (0.7-1.2) mg/dL Glucose (65-100) mg/dL POC Glucose 62 L (70-105) Magnesium 2.50 H (1.7-2.3) mg/dL Total Protein (6.3-8.2) g/dL Albumin (3.9-5) g/dL 09/16/17 Range/Units 08:44 RDW (13.2-15.2) % Plt Count (140-440) K/mm3 Lymph # (1.2-5.4) K/mm3 Seg Neutrophils % (40.0-70.0) % PT (12.2-14.9) Sec. INR (0.87-1.13) APTT (24.2-36.6) Sec. POC ABG pO2 (80-105) Chloride (98-107) mmol/L Carbon Dioxide (22-30) mmol/L BUN (7-17) mg/dL Creatinine (0.7-1.2) mg/dL Glucose (65-100) mg/dL POC Glucose 143 H (70-105) Magnesium (1.7-2.3) mg/dL Total Protein (6.3-8.2) g/dL Albumin (3.9-5) g/dL
--- NOTE | 2017-09-16 10:42 | Progress Note ---
Assessment and Plan Assessment: Transient CHB --> SR; s/p TVP placement Accelerated HTN Chest pain, atypical - currently resolved; ECG with no acute ischemic changes; Torrie negative for AMI ESRD on HD - s/p kidney transplant COPD on home O2 H/o subdural hemorrhage 5 years ago Plan: Pt s/p TVP yesterday afternoon. Currently in SR on tele, HR in 80s. Dopamine gtt d/c'd. Pt for LUE venogram this afternoon per Dr. Walotn. Plan for HD following venogram per Dr. Desouza. Await echo. Cont to hold all AV akila blocking agents. Initiate hydralazine for more adequate BP control. Await EP recommendations regarding PPM implantation. The patient has been seen in conjunction with Dr. Rosenberg who agrees with the assessment and plan of care. Subjective Date of service: 09/16/17 Principal diagnosis: CHB Interval history: Pt resting in bed, A&O, c/o headache. In SR on tele with 1st degree AV block, HR 80s, BPs elevated. No family at bedside. TVP in place via right groin, site c /d/i with no evidence of bleeding. Pt has been NPO since [place]. Objective Last Vital Signs Temp 98.8 F 09/16/17 07:39 Pulse 99 H 09/16/17 10:20 Resp 21 09/16/17 10:20 BP 205/100 09/16/17 10:20 Pulse Ox 91 09/16/17 10:20 - Physical Examination General: No Apparent Distress HEENT: Positive: PERRL, Normocephaly, Mucus Membranes Moist Neck: Positive: neck supple, trachea midline Cardiac: Positive: Reg Rate and Rhythm, S1/S2, Systolic Murmur Lungs: Positive: clear to auscultation Neuro: Positive: Other (lethargic) Abdomen: Positive: Soft. Negative: Tender Skin: Positive: Clear. Negative: Rash, Wound Musculoskeletal: No Fluid Collection, No Pain, Normal Range of Motion Extremities: Absent: edema - Labs and Meds Cardiac Enzymes 09/15/17 09/15/17 Range/Units 13:44 18:07 AST 18 (5-40) units/L CK-MB (CK-2) 1.5 (0.0-4.0) ng/mL Coagulation 09/15/17 Range/Units 13:44 PT 16.3 H (12.2-14.9) Sec. INR 1.24 H (0.87-1.13) APTT 37.3 H (24.2-36.6) Sec. CBC 09/15/17 Range/Units 13:44 WBC 4.6 (4.5-11.0) K/mm3 RBC 3.67 (3.65-5.03) M/mm3 Hgb 10.9 (10.1-14.3) gm/dl Hct 35.1 (30.3-42.9) % Plt Count 86 L (140-440) K/mm3 Lymph # 0.9 L (1.2-5.4) K/mm3 [place] # 0.3 (0.0-0.8) K/mm3 Eos # 0.0 (0.0-0.4) K/mm3 Baso # 0.1 (0.0-0.1) K/mm3 Comprehensive Metabolic Panel 09/15/17 09/16/17 Range/Units 13:44 04:04 Sodium 143 144 (137-145) mmol/L Potassium 4.7 4.8 (3.6-5.0) mmol/L Chloride 107.2 H 106.8 (98-107) mmol/L Carbon Dioxide 19 L 20 L (22-30) mmol/L BUN 58 H 65 H (7-17) mg/dL Creatinine 9.6 H 10.5 H (0.7-1.2) mg/dL Glucose 173 H 66 (65-100) mg/dL Calcium 9.8 9.6 (8.4-10.2) mg/dL AST 18 (5-40) units/L ALT 12 (7-56) units/L Alkaline Phosphatase 52 (35-129) units/L Total Protein 5.3 L (6.3-8.2) g/dL Albumin 3.3 L (3.9-5) g/dL - Imaging and Cardiology EKG: report reviewed, image reviewed Echo: report reviewed (03/2016: EF 55-60%, trace MR, mild TR, mild LVH, impaired relaxation. ) - Telemetry EKG Rhythm: Sinus Rhythm AV and intraventricular conduction: complete (3) AV block
[2017-09-16] MEDS ORDERED: APRESOLINE PO SCH (12:00)
--- NOTE | 2017-09-16 14:33 | Event Note ---
Date: 09/16/[address] tunnelled picc line for possible Dopamine. Pt is presently hypertensive. She has an av access in her RUE, an old av access in her LUE, and a temporary pacemaker in the right groin. Pt for venogram to determine access site for permanent pacemaker. Do not recommend tunnelled picc line at this point. If the pt needs central venous access consider using the sheath of the temporary pacemaker for now.
[2017-09-16] MEDS ORDERED: ZOFRAN ONE (14:37)
[2017-09-16] MEDS ORDERED: NACL 0.9% 100 ML IV PRN (15:58)
--- NOTE | 2017-09-16 18:24 | Consultation ---
History of Present Illness Consult date: 09/16/17 Requesting physician: AMANDA FARIAS History of present illness: 57 YO Female with HTN, ESRD on HD(M,W,F), COPD, Chronic Respiratory Failure on 3L Home oxygen, Diastolic CHF, Pulmonary HTN, SDH presents to ED for evaluation. Pt unable to provide history due to lethargy and confusion. Pt history taken from medical record, and ED staff. As per staff, Pt experienced pain in her chest this morning, an a subsequent blood pressure check showed a systolic BP in the 60's. EMS notified, and upon arrival the patient was found to have a heart rate in the 20/s, and was externally paced and transported to [facility] for evaluation and treatment. Pt seen and evaluated in ED and found to be in extremis. Pt subcutaneously paced at 60bpm and initiated on dopamine drip for cardiogenic shock. Pt is lethargic but is able to protect her airway. Cardiology consulted in ED and patient taken urgently to [facility]. Pt subsequently admitted to ICU. She was on dopamine infusion overnight, which I stopped when she became hypertensive. IV hydralazine was initiated for her blood pressure control. She is currently recieving HD and tolerating it well. She has a history of chronic respiratory failure, on home oxygen at 2L/min but it is unclear as to why. Patient was seen and examined. Vitals, labs, medications, chart reviewed. Past History Past Medical History: COPD, dialysis, ESRD, hypertension, stroke Past Surgical History: Other (s/p kidney transplant) Social history: denies: smoking, alcohol abuse, prescription drug abuse Family history: hypertension Medications and Allergies Allergies Allergy/AdvReac Type Severity Reaction Status Date / Time heparin Allergy Intermediate Itching Verified 02/22/16 09:32 lisinopril AdvReac Mild COUGH Verified 02/22/16 09:32 Home Medications Medication Instructions Recorded Confirmed Last Taken Type ALBUTEROL NEB's [Proventil 0.083% 2.5 mg IH TID PRN 02/08/16 09/15/17 09/14/17 History NEBS] 2.5mg Carvedilol [Coreg] 25 mg PO BID 02/08/16 09/15/17 09/14/17 History 25mg Fluticasone [Flonase] 1 spray NS QDAY 02/08/16 09/15/17 09/14/17 History 1 Ipratropium [Atrovent NEB] 0.5 mg IH Q6HRT 02/08/16 09/15/17 09/14/17 History 1 Pantoprazole [Protonix TAB] 40 mg PO QDAY 02/08/16 09/15/17 09/14/17 History 40mg Tadalafil (Nf) [Adcirca (Nf)] 20 mg PO QDAY 02/08/16 09/15/17 09/14/17 History 20mg Cinacalcet [Sensipar] 30 mg PO DAILY 02/22/16 09/15/17 09/14/17 History 30mg Gabapentin [Neurontin] 1 tab PO 3XW 02/22/16 09/15/17 09/14/17 History 1 Losartan Potassium 100 mg PO DAILY 02/22/16 09/15/17 09/14/17 History 100mg Sertraline [Zoloft] 1 tab PO DAILY 02/22/16 09/15/17 09/14/17 History 1 Sevelamer Carbonate [Renvela] 4 tab PO TID 02/22/16 09/15/17 09/14/17 History 4 Sodium Bicarbonate 1 tab PO DAILY 02/22/16 09/15/17 09/14/17 History 1 Zolpidem Tartrate 10 mg PO QHS 02/22/16 09/15/17 09/14/17 History 10mg Diltiazem Xt [Taztia Xt] 180 mg PO DAILY 09/15/17 09/15/17 09/14/17 History 180mg Omeprazole [Omeprazole] 20 mg PO DAILY 09/15/17 09/15/17 09/14/17 History 20mg cloNIDine [Catapres] 0.2 mg PO TID 09/15/17 09/15/17 09/14/17 History 0.2mg Active Meds: Active Medications Al Hydrox/Mg Hydrox/Simethicone (Alum-Mag Hydrox-Simeth [id number]/5ml) 30 ml PO Q4H PRN PRN Reason: Indigestion Albuterol/Ipratropium (Duoneb *Not For Prn Use*) 1 ampul IH Q6HRT CATHY Last Admin: 09/16/17 14:58 Dose: Not Given Bisacodyl (Dulcolax) 10 mg MS QDAY PRN PRN Reason: constipation unrelieved by MOM Dextrose (D50w (25gm) Vial) 25 gm IV PRN PRN PRN Reason: Hypoglycemia Last Admin: 09/16/17 07:50 Dose: 25 gm Hydralazine HCl (Apresoline) 10 mg IV Q6HR PRN PRN Reason: Systolic B/p greather than 160 Last Admin: 09/16/17 17:37 Dose: 10 mg Hydralazine HCl (Apresoline) 50 mg PO Q8HR CATHY Hydrophilic Ointment (Vaseline Lip Therapy) 1 applic TP DIRECT PRN PRN Reason: DRY LIPS Sodium Chloride (Nacl 0.9%) 100 mls @ 999 mls/hr IV NANNETTE PRN PRN Reason: Hypotension Magnesium Hydroxide (Milk Of Magnesia) 30 ml PO Q4H PRN PRN Reason: Constipation Oxycodone/Acetaminophen (Percocet 5/325) 1 tab PO Q6H PRN PRN Reason: Pain Last Admin: 09/16/17 15:23 Dose: 1 tab Review of Systems All systems: negative Physical Examination Vital signs: Vital Signs Pulse Resp 54 L 17 09/15/17 13:14 09/15/17 13:14 General: No acute distress HEENT: Oral mucosa moist no pharyngeal erythema no pallor or icterus no uremic order Neck: Supple no evidence of any thyromegaly trachea midline no JVD Chest: Clear to auscultation no crackles are also wheezes anteriorly Heart: Regular rate and rhythm S1-S2 heard no S3-S4 Abdomen: Soft nontender no renal bruit no CVA tenderness no suprapubic fullness no organomegaly Extremity: Minimal edema dry skin no peripheral cyanosis pulses palpable Neurological: Alert awake follows command grossly nonfocal examination Back: Nontender thoracolumbar spine Musculoskeletal: No joint effusion noted Skin: No petechial rash/noted General appearance: no acute distress Eyes: non-icteric ENT: oropharynx dry Neck: supple, no lymphadenopathy, no JVD, other (right EJ catheter) Effort: normal Ascultation: Bilateral: clear, diminished breath sounds Cardiovascular: other (S1,S2 no murmurs, active precordium) Gastrointestinal: normoactive bowel sounds, soft, non-tender, non-distended, guarding Integumentary: normal, other (right forearm AV-graft) Extremities: no cyanosis, no edema, pulses normal, no ischemia or petechiae, other (right femoral transvenous pacemaker) Musculoskeletal: no deformities normal mental status, non-focal exam mood appropriate, affect normal Results - Laboratory Findings CBC and BMP: 09/17/17 11:13 09/17/17 11:13 ABG POC ABG pH 7.361 (7.35-7.45) 09/15/17 22:00 POC ABG pCO2 40.1 (35-45) 09/15/17 22:00 POC ABG pO2 56 (80-105) L 09/15/17 22:00 POC ABG HCO3 22.7 09/15/17 22:00 POC ABG Total CO2 24 09/15/17 22:00 POC ABG O2 Sat 88 09/15/17 22:00 PT/INR, D-dimer PT 16.3 Sec. (12.2-14.9) H 09/15/17 13:44 INR 1.24 (0.87-1.13) H 09/15/17 13:44 Abnormal lab findings: Abnormal Labs 09/15/17 09/15/17 09/15/17 13:44 13:44 13:44 RDW 16.8 H Plt Count 86 L Lymph # 0.9 L Seg Neutrophils % 72.2 H PT 16.3 H INR 1.24 H APTT 37.3 H POC ABG pO2 Chloride 107.2 H Carbon Dioxide 19 L BUN 58 H Creatinine 9.6 H Glucose 173 H POC Glucose Magnesium 2.40 H Total Protein 5.3 L Albumin 3.3 L 09/15/17 09/16/17 09/16/17 22:00 04:04 07:35 RDW Plt Count Lymph # Seg Neutrophils % PT INR APTT POC ABG pO2 56 L Chloride Carbon Dioxide 20 L BUN 65 H Creatinine 10.5 H Glucose POC Glucose 62 L Magnesium 2.50 H Total Protein Albumin 09/16/17 08:44 RDW Plt Count Lymph # Seg Neutrophils % PT INR APTT POC ABG pO2 Chloride Carbon Dioxide BUN Creatinine Glucose POC Glucose 143 H Magnesium Total Protein Albumin - Diagnostic Findings Chest x-ray: image reviewed Assessment and Plan - Patient Problems (1) CHB (complete heart block) Current Visit: Yes Status: Acute Plan to address problem: s/p transvenous pacemaker Cardiology monitoring Avoid any AV akila blocking agents (2) Chronic respiratory failure with hypoxia Current Visit: Yes Status: Acute Plan to address problem: Continue with supplemental oxygen to keep O2 sats>92% Bronchodilaotrs prn (3) ESRD (end stage renal disease) Current Visit: Yes Status: Acute Plan to address problem: Failed renal transplant. HD per renal service (4) Hypertension Current Visit: Yes Status: Acute Plan to address problem: Sub-optimal control. Adjust medications (5) Thrombocytopenia Current Visit: Yes Status: Acute Plan to address problem: Monitor counts closely. Monitor for bleeding Critical care time in (mins) excluding proc time.: 35 Critical care attestation.: If time is entered above; I have spent that time in minutes in the direct care of this critically ill patient, excluding procedure time.
[2017-09-16] MEDS: APRESOLINE PO SCH (21:12)
[2017-09-17] MEDS: DUONEB *Not for PRN Use IH SCH ×4 (02:36→20:12)
[2017-09-17] MEDS: APRESOLINE PO SCH (05:53)
[2017-09-17] MEDS: D50W (25GM) Vial IV PRN (05:54)
[2017-09-17] MEDS: APRESOLINE IV PRN (08:10)
[2017-09-17] MEDS: PERCOCET 5/325 PO PRN ×2 (08:10→21:35)
--- NOTE | 2017-09-17 09:30 | Progress Note ---
Assessment and Plan Assessment: Transient CHB --> SR/ST; s/p TVP placement Accelerated HTN Chest pain, atypical - currently resolved; ECG with no acute ischemic changes; Torrie negative for AMI ESRD on HD - s/p kidney transplant COPD on home O2 H/o subdural hemorrhage 5 years ago Severe pulmonary HTN - RVSP 82mmHg Plan: Echo reviewed - EF 55-60%, septal flattening of the interventricular septum c/w RV volume or pressure overload, impaired relaxation, LA mildly dilated, pacemaker wire in RV, mild (mean gradient 22mmHg), trace MR, mild TR, severe pulmonary HTN, RVSP 82mmHg, trivial pericardial effusion. s/p LUE venogram yesterday. For possible PPM implantation tomorrow. Indications, potential risks and benefits of PPM reviewed with pt and pt's sister at bedside and they are agreeable to proceed with procedure. Consents obtained. NPO after MN. D/w Dr. Desouza - pt will not undergo HD today in setting of tachycardia. Initiate Lopressor 50mg BID and nephrology to consider HD tomorrow. Further BP optimization per nephrology. Assessment and plan reviewed with pt and pt's sister at bedside. The patient has been seen in conjunction with Dr. Rosenberg who agrees with the assessment and plan of care. Subjective Date of service: 09/17/17 Principal diagnosis: CHB Interval history: Pt resting in bed, drowsy, NAD. In SR/ST on tele, HR 90s - 120s, BPs elevated. Sister at bedside. TVP in place via right groin, site c/d/i with no evidence of bleeding. Objective Last Vital Signs Temp 98.8 F 09/17/17 08:00 Pulse 113 H 09/17/17 09:00 Resp 14 09/17/17 09:00 BP 153/86 09/17/17 09:00 Pulse Ox 93 09/17/17 09:00 - Physical Examination General: No Apparent Distress HEENT: Positive: PERRL, Normocephaly, Mucus Membranes Moist Neck: Positive: neck supple, trachea midline Cardiac: Positive: Reg Rate and Rhythm, S1/S2, Systolic Murmur Lungs: Positive: clear to auscultation Neuro: Positive: Other (lethargic) Abdomen: Positive: Soft. Negative: Tender Skin: Positive: Clear. Negative: Rash, Wound Musculoskeletal: No Fluid Collection, No Pain, Normal Range of Motion Extremities: Absent: edema - Imaging and Cardiology EKG: report reviewed, image reviewed Echo: report reviewed (03/2016: EF 55-60%, trace MR, mild TR, mild LVH, impaired relaxation. ) AV and intraventricular conduction: complete (3) AV block
[2017-09-17] MEDS ORDERED: NACL 0.9% 100 ML IV PRN (09:51)
--- NOTE | 2017-09-17 09:51 | Progress Note ---
Subjective Principal diagnosis: CHB Interval history: Patient was seen today for follow-up on multiple renal related issues Events of 24 hours vitals labs intake output medications were reviewed Received ultrafiltration treatment yesterday blood pressure has been accelerated Discussed with cardiology nurse patient will require a pacemaker tomorrow which will be permanent Interdisciplinary Notes were also reviewed Past medical history: Reviewed Social history: Reviewed Allergies: Reviewed Medication: Reviewed Labs: Reviewed Physical examination Gen.: No acute distress HEENT: Oral mucosa moist, mild pallor no icterus Neck: Supple no thyromegaly nodular mass or JVD Chest: Lateral basilar crackles Heart: Regular rate and rhythm S1 and S2 heard Abdomen: Soft nontender no renal bruit no CVA tenderness no suprapubic fullness Extremity: Edema approximately 1+ dry skin no purpuric rash Dermatology: Dry skin no rash Neurological: Alert awake follows commands Assessment and plan End-stage renal disease: Patient will need hemodialysis today for approximately 3-1/2 hours targeting about 3-3-1/2 kg of fluid Accelerated/uncontrolled hypertension ultrafiltrate to make state adjust blood pressure medications Patient has been very poorly compliant with her diet fluid and sodium intake discussed with patient's sister yesterday Pending permanent pacemaker placement admitted with complete heart block Monitor dialysis related labs Discussed with dialysis nurse about hemodialysis today possibly tomorrow as well to control her volume and blood pressure Had a detailed discussion with patient about multiple renal related issues, explained and simple Occitan. Patient does exhibit good understanding off multiple renal related issues We'll continue to follow and make recommendation from renal standpoint Objective - Vital Signs Vital signs: Vital Signs - 12hr 09/16/17 09/17/17 09/17/17 23:41 00:30 00:40 Temperature 100.1 F H Pulse Rate 94 H 95 H Pulse Rate [ Bilateral Throughout] Respiratory 16 12 Rate Respiratory Rate [Bilateral Throughout] Blood Pressure 193/96 194/93 O2 Sat by Pulse 93 94 Oximetry 09/17/17 09/17/17 09/17/17 00:50 01:00 01:10 Temperature Pulse Rate 97 H 101 H 102 H Pulse Rate [ Bilateral Throughout] Respiratory 15 15 17 Rate Respiratory Rate [Bilateral Throughout] Blood Pressure 173/81 173/81 169/84 O2 Sat by Pulse 93 89 90 Oximetry 09/17/17 09/17/17 09/17/17 01:20 01:30 01:40 Temperature Pulse Rate 109 H 111 H 107 H Pulse Rate [ Bilateral Throughout] Respiratory 17 16 17 Rate Respiratory Rate [Bilateral Throughout] Blood Pressure 175/82 175/82 161/82 O2 Sat by Pulse 91 91 93 Oximetry 09/17/17 09/17/17 09/17/17 01:50 02:00 02:10 Temperature Pulse Rate 102 H 103 H 95 H Pulse Rate [ Bilateral Throughout] Respiratory 16 20 22 Rate Respiratory Rate [Bilateral Throughout] Blood Pressure 172/87 172/87 173/87 O2 Sat by Pulse 93 93 94 Oximetry 09/17/17 09/17/17 09/17/17 02:20 02:30 02:37 Temperature Pulse Rate 97 H 97 H Pulse Rate [ 94 H Bilateral Throughout] Respiratory 12 16 Rate Respiratory 13 Rate [Bilateral Throughout] Blood Pressure 175/87 175/87 O2 Sat by Pulse 94 93 Oximetry 09/17/17 09/17/17 09/17/17 02:40 02:50 03:00 Temperature Pulse Rate 93 H 97 H 98 H Pulse Rate [ Bilateral Throughout] Respiratory 15 15 17 Rate Respiratory Rate [Bilateral Throughout] Blood Pressure 183/92 195/100 183/92 O2 Sat by Pulse 96 94 92 Oximetry 09/17/17 09/17/17 09/17/17 03:10 03:20 03:30 Temperature Pulse Rate 101 H 99 H 99 H Pulse Rate [ Bilateral Throughout] Respiratory 22 21 22 Rate Respiratory Rate [Bilateral Throughout] Blood Pressure 193/96 209/100 193/96 O2 Sat by Pulse 94 94 95 Oximetry 09/17/17 09/17/17 09/17/17 03:40 03:50 04:00 Temperature 100.0 F H Pulse Rate 119 H 112 H 126 H Pulse Rate [ Bilateral Throughout] Respiratory 21 17 16 Rate Respiratory Rate [Bilateral Throughout] Blood Pressure 198/100 201/96 201/96 O2 Sat by Pulse 94 95 96 Oximetry 09/17/17 09/17/17 09/17/17 04:10 04:20 04:30 Temperature Pulse Rate 102 H 100 H 100 H Pulse Rate [ Bilateral Throughout] Respiratory 14 15 15 Rate Respiratory Rate [Bilateral Throughout] Blood Pressure 199/102 190/104 190/104 O2 Sat by Pulse 95 93 94 Oximetry 09/17/17 09/17/17 09/17/17 04:40 04:50 05:00 Temperature Pulse Rate 99 H 97 H 99 H Pulse Rate [ Bilateral Throughout] Respiratory 15 13 15 Rate Respiratory Rate [Bilateral Throughout] Blood Pressure 192/105 187/105 192/105 O2 Sat by Pulse 95 93 93 Oximetry 09/17/17 09/17/17 09/17/17 05:10 05:20 05:30 Temperature Pulse Rate 100 H 97 H 101 H Pulse Rate [ Bilateral Throughout] Respiratory 16 21 20 Rate Respiratory Rate [Bilateral Throughout] Blood Pressure 200/106 200/93 200/93 O2 Sat by Pulse 94 95 95 Oximetry 09/17/17 09/17/17 09/17/17 05:40 05:50 05:53 Temperature Pulse Rate 126 H 100 H 100 H Pulse Rate [ Bilateral Throughout] Respiratory 18 16 Rate Respiratory Rate [Bilateral Throughout] Blood Pressure 196/106 193/96 193/96 O2 Sat by Pulse 94 94 Oximetry 09/17/17 09/17/17 09/17/17 06:00 06:10 06:20 Temperature Pulse Rate 102 H 102 H 98 H Pulse Rate [ Bilateral Throughout] Respiratory 14 15 16 Rate Respiratory Rate [Bilateral Throughout] Blood Pressure 193/96 185/95 184/98 O2 Sat by Pulse 93 93 94 Oximetry 09/17/17 09/17/17 09/17/17 06:30 06:40 06:50 Temperature Pulse Rate 97 H 96 H 96 H Pulse Rate [ Bilateral Throughout] Respiratory 15 15 16 Rate Respiratory Rate [Bilateral Throughout] Blood Pressure 184/98 190/94 198/81 O2 Sat by Pulse 95 93 94 Oximetry 09/17/17 09/17/17 09/17/17 07:00 07:10 07:20 Temperature Pulse Rate 94 H 99 H 93 H Pulse Rate [ Bilateral Throughout] Respiratory 12 13 13 Rate Respiratory Rate [Bilateral Throughout] Blood Pressure 198/81 198/81 185/88 O2 Sat by Pulse 94 94 93 Oximetry 09/17/17 09/17/17 09/17/17 07:30 07:40 07:50 Temperature Pulse Rate 102 H 99 H 101 H Pulse Rate [ Bilateral Throughout] Respiratory 25 H 12 17 Rate Respiratory Rate [Bilateral Throughout] Blood Pressure 185/88 196/97 191/101 O2 Sat by Pulse 94 96 97 Oximetry 09/17/17 09/17/17 09/17/17 08:00 08:05 08:10 Temperature 98.8 F Pulse Rate 115 H 102 H Pulse Rate [ 108 H 107 H Bilateral Throughout] Respiratory 17 15 Rate Respiratory 17 15 Rate [Bilateral Throughout] Blood Pressure 191/101 203/110 O2 Sat by Pulse 98 98 Oximetry 09/17/17 09/17/17 09/17/17 08:20 08:30 08:40 Temperature Pulse Rate 110 H 119 H 118 H Pulse Rate [ Bilateral Throughout] Respiratory 17 22 15 Rate Respiratory Rate [Bilateral Throughout] Blood Pressure 179/94 179/94 166/86 O2 Sat by Pulse 99 99 96 Oximetry 09/17/17 09/17/17 09/17/17 08:50 08:56 09:00 Temperature Pulse Rate 119 H 113 H Pulse Rate [ Bilateral Throughout] Respiratory 16 14 Rate Respiratory Rate [Bilateral Throughout] Blood Pressure 153/86 153/86 O2 Sat by Pulse 94 97 93 Oximetry - Lab 09/15/17 13:44 09/16/17 04:04 Most recent lab results Calcium 9.6 mg/dL (8.4-10.2) 09/16/17 04:04 Magnesium 2.50 mg/dL (1.7-2.3) H 09/16/17 04:04
[2017-09-17] MEDS ORDERED: APRESOLINE PO SCH (10:00)
[2017-09-17] MEDS ORDERED: COZAAR PO SCH (10:00)
[2017-09-17] MEDS ORDERED: NACL 0.9 (PRIMING MACHINE ONLY DIALYSIS) MC ONE (10:16)
[2017-09-17] MEDS: LOPRESSOR PO SCH ×2 (10:45→21:36)
--- NOTE | 2017-09-17 11:16 | Progress Note ---
Assessment and Plan /Cardiogenic shock, improved Pt admitted to ICU, started IV pressor support with dobutamin ( off since ) Cardiology following, Pt is s/p TVP placement, Plan to have PPM tomorrow /HTN, uncontrolled held all BB, CCB started on hydralazine, but she was getting tachycardia cont to monitor, placed BB today /Acute on chronic respiratory failure likely from cardiogenic shock, CXR suggestive for pulmonary congestion she is on home O2 cont supplemental O2, duenebs /COPD cont O2 n/c. nebulizer /CHB (complete heart block) Cardiology consulted, s/p Transcutaneous pacing, Pt taken urgently to [facility] for intervention. Now on TVP. PPM placement tomorrow /ESRD has h/o renal transplant Nephrology consulted for dialysis, monitor uop q shift, dialysis per renal. /H/o hemorrhagic CVA shows no focal deficit now closely monitor with frequent neuro assessment / Encephalopathy, resolved likely Metabolic encephalopathy: appears more alert and awake today dialysis as per renal team, supportive care, treat underlying cause /hyperkalemia likely from ESRD kayexalate if k level >5.2 /DVT prophylaxis lovenox The high probability of a clinically significant, sudden or life threatening deterioration of the [cardiac, respiratory, renal] system(s) required my full and direct attention, intervention and personal management. The aggregate critical care time was [66] minutes. This time is in addition to time spent performing reported procedures but includes the following: [x] Data Review and interpretation [x] Patient assessment and monitoring of vital signs [x] Documentation [x] Medication orders and management Brief history: The pt is a 57 YO female with a past medical history significant for ESRD on HD, s/p kidney transplant, COPD on home O2, HTN, diastolic dysfunction, subdural hemorrhage is followed by Dr. Camarillo presented with c/o low BP and slow HR. Per pt's sister, BP at home was reportedly found to be 60s/ 30s with HR in 20s and EMS was called. Upon EMS arrival, pt's HR was found to be in 20s and external pacing pads were applied and initiated dopamine gtt for hypotension. Pt was then taken to [facility] for emergent TVP placement. Radiological test: CXR - mild cardiomegaly and pulmonary venous congestion Hospitalist Physical exam: GENERAL: elderly female lying on bed HEENT: Normocephalic. Atraumatic. No conjunctival congestion or icterus. Patient has very dry mucous membranes. NECK: Supple. Trachea midline. CHEST/LUNGS: few crackles auscultated bilaterally, breathing nonlabored. on n/c HEART/CARDIOVASCULAR: S1 and S2 positive. ABDOMEN: Abdomen is soft, nontender. Patient has normal bowel sounds. SKIN: There is no rash. Warm and dry. NEURO: No focal motor deficit. Follows command. MUSCULOSKELETAL: No joint effusion or tenderness. EXTRIMITY: No edema, no cyanosis or clubbing. TVP in place via right groin, site c/d/i with no evidence of bleeding. Subjective Date of service: 09/17/17 Principal diagnosis: CHB Interval history: Pt seen and examined Pt resting in bed, c/o nausea and palpitation. No family at bedside. Pt had HD yesterday, denies chest pain Objective - Constitutional Vitals: Vital Signs - 12hr 09/16/17 09/17/17 09/17/17 23:41 00:30 00:40 Temperature 100.1 F H Pulse Rate 94 H 95 H Pulse Rate [ Bilateral Throughout] Respiratory 16 12 Rate Respiratory Rate [Bilateral Throughout] Blood Pressure 193/96 194/93 O2 Sat by Pulse 93 94 Oximetry 09/17/17 09/17/17 09/17/17 00:50 01:00 01:10 Temperature Pulse Rate 97 H 101 H 102 H Pulse Rate [ Bilateral Throughout] Respiratory 15 15 17 Rate Respiratory Rate [Bilateral Throughout] Blood Pressure 173/81 173/81 169/84 O2 Sat by Pulse 93 89 90 Oximetry 09/17/17 09/17/17 09/17/17 01:20 01:30 01:40 Temperature Pulse Rate 109 H 111 H 107 H Pulse Rate [ Bilateral Throughout] Respiratory 17 16 17 Rate Respiratory Rate [Bilateral Throughout] Blood Pressure 175/82 175/82 161/82 O2 Sat by Pulse 91 91 93 Oximetry 09/17/17 09/17/17 09/17/17 01:50 02:00 02:10 Temperature Pulse Rate 102 H 103 H 95 H Pulse Rate [ Bilateral Throughout] Respiratory 16 20 22 Rate Respiratory Rate [Bilateral Throughout] Blood Pressure 172/87 172/87 173/87 O2 Sat by Pulse 93 93 94 Oximetry 09/17/17 09/17/17 09/17/17 02:20 02:30 02:37 Temperature Pulse Rate 97 H 97 H Pulse Rate [ 94 H Bilateral Throughout] Respiratory 12 16 Rate Respiratory 13 Rate [Bilateral Throughout] Blood Pressure 175/87 175/87 O2 Sat by Pulse 94 93 Oximetry 09/17/17 09/17/17 09/17/17 02:40 02:50 03:00 Temperature Pulse Rate 93 H 97 H 98 H Pulse Rate [ Bilateral Throughout] Respiratory 15 15 17 Rate Respiratory Rate [Bilateral Throughout] Blood Pressure 183/92 195/100 183/92 O2 Sat by Pulse 96 94 92 Oximetry 09/17/17 09/17/17 09/17/17 03:10 03:20 03:30 Temperature Pulse Rate 101 H 99 H 99 H Pulse Rate [ Bilateral Throughout] Respiratory 22 21 22 Rate Respiratory Rate [Bilateral Throughout] Blood Pressure 193/96 209/100 193/96 O2 Sat by Pulse 94 94 95 Oximetry 09/17/17 09/17/17 09/17/17 03:40 03:50 04:00 Temperature 100.0 F H Pulse Rate 119 H 112 H 126 H Pulse Rate [ Bilateral Throughout] Respiratory 21 17 16 Rate Respiratory Rate [Bilateral Throughout] Blood Pressure 198/100 201/96 201/96 O2 Sat by Pulse 94 95 96 Oximetry 09/17/17 09/17/17 09/17/17 04:10 04:20 04:30 Temperature Pulse Rate 102 H 100 H 100 H Pulse Rate [ Bilateral Throughout] Respiratory 14 15 15 Rate Respiratory Rate [Bilateral Throughout] Blood Pressure 199/102 190/104 190/104 O2 Sat by Pulse 95 93 94 Oximetry 09/17/17 09/17/17 09/17/17 04:40 04:50 05:00 Temperature Pulse Rate 99 H 97 H 99 H Pulse Rate [ Bilateral Throughout] Respiratory 15 13 15 Rate Respiratory Rate [Bilateral Throughout] Blood Pressure 192/105 187/105 192/105 O2 Sat by Pulse 95 93 93 Oximetry 09/17/17 09/17/17 09/17/17 05:10 05:20 05:30 Temperature Pulse Rate 100 H 97 H 101 H Pulse Rate [ Bilateral Throughout] Respiratory 16 21 20 Rate Respiratory Rate [Bilateral Throughout] Blood Pressure 200/106 200/93 200/93 O2 Sat by Pulse 94 95 95 Oximetry 09/17/17 09/17/17 09/17/17 05:40 05:50 05:53 Temperature Pulse Rate 126 H 100 H 100 H Pulse Rate [ Bilateral Throughout] Respiratory 18 16 Rate Respiratory Rate [Bilateral Throughout] Blood Pressure 196/106 193/96 193/96 O2 Sat by Pulse 94 94 Oximetry 09/17/17 09/17/17 09/17/17 06:00 06:10 06:20 Temperature Pulse Rate 102 H 102 H 98 H Pulse Rate [ Bilateral Throughout] Respiratory 14 15 16 Rate Respiratory Rate [Bilateral Throughout] Blood Pressure 193/96 185/95 184/98 O2 Sat by Pulse 93 93 94 Oximetry 09/17/17 09/17/17 09/17/17 06:30 06:40 06:50 Temperature Pulse Rate 97 H 96 H 96 H Pulse Rate [ Bilateral Throughout] Respiratory 15 15 16 Rate Respiratory Rate [Bilateral Throughout] Blood Pressure 184/98 190/94 198/81 O2 Sat by Pulse 95 93 94 Oximetry 09/17/17 09/17/17 09/17/17 07:00 07:10 07:20 Temperature Pulse Rate 94 H 99 H 93 H Pulse Rate [ Bilateral Throughout] Respiratory 12 13 13 Rate Respiratory Rate [Bilateral Throughout] Blood Pressure 198/81 198/81 185/88 O2 Sat by Pulse 94 94 93 Oximetry 09/17/17 09/17/17 09/17/17 07:30 07:40 07:50 Temperature Pulse Rate 102 H 99 H 101 H Pulse Rate [ Bilateral Throughout] Respiratory 25 H 12 17 Rate Respiratory Rate [Bilateral Throughout] Blood Pressure 185/88 196/97 191/101 O2 Sat by Pulse 94 96 97 Oximetry 09/17/17 09/17/17 09/17/17 08:00 08:05 08:10 Temperature 98.8 F Pulse Rate 115 H 102 H Pulse Rate [ 108 H 107 H Bilateral Throughout] Respiratory 17 15 Rate Respiratory 17 15 Rate [Bilateral Throughout] Blood Pressure 191/101 203/110 O2 Sat by Pulse 98 98 Oximetry 09/17/17 09/17/17 09/17/17 08:20 08:30 08:40 Temperature Pulse Rate 110 H 119 H 118 H Pulse Rate [ Bilateral Throughout] Respiratory 17 22 15 Rate Respiratory Rate [Bilateral Throughout] Blood Pressure 179/94 179/94 166/86 O2 Sat by Pulse 99 99 96 Oximetry 09/17/17 09/17/17 09/17/17 08:50 08:56 09:00 Temperature Pulse Rate 119 H 113 H Pulse Rate [ Bilateral Throughout] Respiratory 16 14 Rate Respiratory Rate [Bilateral Throughout] Blood Pressure 153/86 153/86 O2 Sat by Pulse 94 97 93 Oximetry 09/17/17 09/17/17 09/17/17 09:10 09:20 09:30 Temperature Pulse Rate 118 H 119 H 115 H Pulse Rate [ Bilateral Throughout] Respiratory 16 17 18 Rate Respiratory Rate [Bilateral Throughout] Blood Pressure 154/88 162/90 162/90 O2 Sat by Pulse 94 93 93 Oximetry 09/17/17 09/17/17 09/17/17 09:40 09:51 10:00 Temperature Pulse Rate 121 H 117 H 117 H Pulse Rate [ Bilateral Throughout] Respiratory 15 17 20 Rate Respiratory Rate [Bilateral Throughout] Blood Pressure 162/90 162/86 166/88 O2 Sat by Pulse 93 93 94 Oximetry 09/17/17 09/17/17 09/17/17 10:11 10:20 10:30 Temperature Pulse Rate 121 H 125 H 123 H Pulse Rate [ Bilateral Throughout] Respiratory 22 18 17 Rate Respiratory Rate [Bilateral Throughout] Blood Pressure 175/92 163/78 163/78 O2 Sat by Pulse 91 92 93 Oximetry 09/17/17 09/17/17 09/17/17 10:40 10:45 10:50 Temperature Pulse Rate 117 H 114 H 113 H Pulse Rate [ Bilateral Throughout] Respiratory 16 21 Rate Respiratory Rate [Bilateral Throughout] Blood Pressure 163/78 156/83 141/81 O2 Sat by Pulse 94 93 Oximetry 09/17/17 11:00 Temperature Pulse Rate 116 H Pulse Rate [ Bilateral Throughout] Respiratory 15 Rate Respiratory Rate [Bilateral Throughout] Blood Pressure 141/81 O2 Sat by Pulse 94 Oximetry - Labs CBC & Chem 7: 09/18/17 04:15 09/18/17 04:15 Labs: Abnormal lab results 09/16/17 09/17/17 09/17/17 Range/Units 23:31 01:13 05:46 POC Glucose 66 L 118 H 67 L (70-105)
[2017-09-17 11:30] LABS: Hematocrit 37.3 % (30.3-42.9); Hemoglobin 12.3 gm/dl (10.1-14.3); Mean Corpuscular HGB Conc 33 % (30-34); Mean Corpuscular Hemoglobin 30 pg (28-32); Mean Corpuscular Volume 92 fl (79-97); Platelet Count 72 K/mm3 (140-440); Red Blood Count 4.06 M/mm3 (3.65-5.03); Red Cell Distribution Width 15.9 % (13.2-15.2)
[2017-09-17 11:50] LABS: Calcium 9.3 mg/dL (8.4-10.2)
[2017-09-17] MEDS: ZOFRAN IV PRN (13:04)
--- NOTE | 2017-09-17 13:41 | Progress Note ---
Assessment and Plan - Patient Problems (1) CHB (complete heart block) Current Visit: Yes Status: Acute Plan to address problem: s/p transvenous pacemaker Cardiology monitoring Avoid any AV akila blocking agents (2) Chronic respiratory failure with hypoxia Current Visit: Yes Status: Acute Plan to address problem: Continue with supplemental oxygen to keep O2 sats>92% Bronchodilaotrs prn (3) ESRD (end stage renal disease) Current Visit: Yes Status: Acute Plan to address problem: Failed renal transplant. HD per renal service (4) Hypertension Current Visit: Yes Status: Acute Plan to address problem: Sub-optimal control. Adjust medications (5) Thrombocytopenia Current Visit: Yes Status: Acute Plan to address problem: Monitor counts closely. Monitor for bleeding Subjective Date of service: 09/17/17 Principal diagnosis: CHB Objective Vital Signs - 12hr 09/17/17 09/17/17 09/17/17 01:50 02:00 02:10 Temperature Pulse Rate 102 H 103 H 95 H Pulse Rate [ Bilateral Throughout] Respiratory 16 20 22 Rate Respiratory Rate [Bilateral Throughout] Blood Pressure 172/87 172/87 173/87 O2 Sat by Pulse 93 93 94 Oximetry O2 Sat by Pulse Oximetry [ Bilateral Throughout] 09/17/17 09/17/17 09/17/17 02:20 02:30 02:37 Temperature Pulse Rate 97 H 97 H Pulse Rate [ 94 H Bilateral Throughout] Respiratory 12 16 Rate Respiratory 13 Rate [Bilateral Throughout] Blood Pressure 175/87 175/87 O2 Sat by Pulse 94 93 Oximetry O2 Sat by Pulse Oximetry [ Bilateral Throughout] 09/17/17 09/17/17 09/17/17 02:40 02:50 03:00 Temperature Pulse Rate 93 H 97 H 98 H Pulse Rate [ Bilateral Throughout] Respiratory 15 15 17 Rate Respiratory Rate [Bilateral Throughout] Blood Pressure 183/92 195/100 183/92 O2 Sat by Pulse 96 94 92 Oximetry O2 Sat by Pulse Oximetry [ Bilateral Throughout] 09/17/17 09/17/17 09/17/17 03:10 03:20 03:30 Temperature Pulse Rate 101 H 99 H 99 H Pulse Rate [ Bilateral Throughout] Respiratory 22 21 22 Rate Respiratory Rate [Bilateral Throughout] Blood Pressure 193/96 209/100 193/96 O2 Sat by Pulse 94 94 95 Oximetry O2 Sat by Pulse Oximetry [ Bilateral Throughout] 09/17/17 09/17/17 09/17/17 03:40 03:50 04:00 Temperature 100.0 F H Pulse Rate 119 H 112 H 126 H Pulse Rate [ Bilateral Throughout] Respiratory 21 17 16 Rate Respiratory Rate [Bilateral Throughout] Blood Pressure 198/100 201/96 201/96 O2 Sat by Pulse 94 95 96 Oximetry O2 Sat by Pulse Oximetry [ Bilateral Throughout] 09/17/17 09/17/17 09/17/17 04:10 04:20 04:30 Temperature Pulse Rate 102 H 100 H 100 H Pulse Rate [ Bilateral Throughout] Respiratory 14 15 15 Rate Respiratory Rate [Bilateral Throughout] Blood Pressure 199/102 190/104 190/104 O2 Sat by Pulse 95 93 94 Oximetry O2 Sat by Pulse Oximetry [ Bilateral Throughout] 09/17/17 09/17/17 09/17/17 04:40 04:50 05:00 Temperature Pulse Rate 99 H 97 H 99 H Pulse Rate [ Bilateral Throughout] Respiratory 15 13 15 Rate Respiratory Rate [Bilateral Throughout] Blood Pressure 192/105 187/105 192/105 O2 Sat by Pulse 95 93 93 Oximetry O2 Sat by Pulse Oximetry [ Bilateral Throughout] 09/17/17 09/17/17 09/17/17 05:10 05:20 05:30 Temperature Pulse Rate 100 H 97 H 101 H Pulse Rate [ Bilateral Throughout] Respiratory 16 21 20 Rate Respiratory Rate [Bilateral Throughout] Blood Pressure 200/106 200/93 200/93 O2 Sat by Pulse 94 95 95 Oximetry O2 Sat by Pulse Oximetry [ Bilateral Throughout] 09/17/17 09/17/17 09/17/17 05:40 05:50 05:53 Temperature Pulse Rate 126 H 100 H 100 H Pulse Rate [ Bilateral Throughout] Respiratory 18 16 Rate Respiratory Rate [Bilateral Throughout] Blood Pressure 196/106 193/96 193/96 O2 Sat by Pulse 94 94 Oximetry O2 Sat by Pulse Oximetry [ Bilateral Throughout] 09/17/17 09/17/17 09/17/17 06:00 06:10 06:20 Temperature Pulse Rate 102 H 102 H 98 H Pulse Rate [ Bilateral Throughout] Respiratory 14 15 16 Rate Respiratory Rate [Bilateral Throughout] Blood Pressure 193/96 185/95 184/98 O2 Sat by Pulse 93 93 94 Oximetry O2 Sat by Pulse Oximetry [ Bilateral Throughout] 09/17/17 09/17/17 09/17/17 06:30 06:40 06:50 Temperature Pulse Rate 97 H 96 H 96 H Pulse Rate [ Bilateral Throughout] Respiratory 15 15 16 Rate Respiratory Rate [Bilateral Throughout] Blood Pressure 184/98 190/94 198/81 O2 Sat by Pulse 95 93 94 Oximetry O2 Sat by Pulse Oximetry [ Bilateral Throughout] 09/17/17 09/17/17 09/17/17 07:00 07:10 07:20 Temperature Pulse Rate 94 H 99 H 93 H Pulse Rate [ Bilateral Throughout] Respiratory 12 13 13 Rate Respiratory Rate [Bilateral Throughout] Blood Pressure 198/81 198/81 185/88 O2 Sat by Pulse 94 94 93 Oximetry O2 Sat by Pulse Oximetry [ Bilateral Throughout] 09/17/17 09/17/17 09/17/17 07:30 07:40 07:50 Temperature Pulse Rate 102 H 99 H 101 H Pulse Rate [ Bilateral Throughout] Respiratory 25 H 12 17 Rate Respiratory Rate [Bilateral Throughout] Blood Pressure 185/88 196/97 191/101 O2 Sat by Pulse 94 96 97 Oximetry O2 Sat by Pulse Oximetry [ Bilateral Throughout] 09/17/17 09/17/17 09/17/17 08:00 08:05 08:10 Temperature 98.8 F Pulse Rate 115 H 102 H Pulse Rate [ 108 H 107 H Bilateral Throughout] Respiratory 17 15 Rate Respiratory 17 15 Rate [Bilateral Throughout] Blood Pressure 191/101 203/110 O2 Sat by Pulse 98 98 Oximetry O2 Sat by Pulse Oximetry [ Bilateral Throughout] 09/17/17 09/17/17 09/17/17 08:20 08:30 08:40 Temperature Pulse Rate 110 H 119 H 118 H Pulse Rate [ Bilateral Throughout] Respiratory 17 22 15 Rate Respiratory Rate [Bilateral Throughout] Blood Pressure 179/94 179/94 166/86 O2 Sat by Pulse 99 99 96 Oximetry O2 Sat by Pulse Oximetry [ Bilateral Throughout] 09/17/17 09/17/17 09/17/17 08:50 08:56 09:00 Temperature Pulse Rate 119 H 113 H Pulse Rate [ Bilateral Throughout] Respiratory 16 14 Rate Respiratory Rate [Bilateral Throughout] Blood Pressure 153/86 153/86 O2 Sat by Pulse 94 97 93 Oximetry O2 Sat by Pulse Oximetry [ Bilateral Throughout] 09/17/17 09/17/17 09/17/17 09:10 09:20 09:30 Temperature Pulse Rate 118 H 119 H 115 H Pulse Rate [ Bilateral Throughout] Respiratory 16 17 18 Rate Respiratory Rate [Bilateral Throughout] Blood Pressure 154/88 162/90 162/90 O2 Sat by Pulse 94 93 93 Oximetry O2 Sat by Pulse Oximetry [ Bilateral Throughout] 09/17/17 09/17/17 09/17/17 09:40 09:51 10:00 Temperature Pulse Rate 121 H 117 H 117 H Pulse Rate [ Bilateral Throughout] Respiratory 15 17 20 Rate Respiratory Rate [Bilateral Throughout] Blood Pressure 162/90 162/86 166/88 O2 Sat by Pulse 93 93 94 Oximetry O2 Sat by Pulse Oximetry [ Bilateral Throughout] 09/17/17 09/17/17 09/17/17 10:11 10:20 10:30 Temperature Pulse Rate 121 H 125 H 123 H Pulse Rate [ Bilateral Throughout] Respiratory 22 18 17 Rate Respiratory Rate [Bilateral Throughout] Blood Pressure 175/92 163/78 163/78 O2 Sat by Pulse 91 92 93 Oximetry O2 Sat by Pulse Oximetry [ Bilateral Throughout] 09/17/17 09/17/17 09/17/17 10:40 10:45 10:50 Temperature Pulse Rate 117 H 114 H 113 H Pulse Rate [ Bilateral Throughout] Respiratory 16 21 Rate Respiratory Rate [Bilateral Throughout] Blood Pressure 163/78 156/83 141/81 O2 Sat by Pulse 94 93 Oximetry O2 Sat by Pulse Oximetry [ Bilateral Throughout] 09/17/17 09/17/17 11:00 13:23 Temperature 99.6 F Pulse Rate 116 H 87 Pulse Rate [ Bilateral Throughout] Respiratory 15 11 L Rate Respiratory Rate [Bilateral Throughout] Blood Pressure 141/81 131/86 O2 Sat by Pulse 94 Oximetry O2 Sat by Pulse 93 Oximetry [ Bilateral Throughout] Constitutional: no acute distress Eyes: non-icteric ENT: oropharynx dry Neck: supple, no lymphadenopathy, no JVD, other (right EJ catheter) Effort: normal Ascultation: Bilateral: clear, diminished breath sounds Cardiovascular: other (S1,S2 no murmurs, active precordium) Gastrointestinal: normoactive bowel sounds, soft, non-tender, non-distended, guarding Integumentary: normal, other (right forearm AV-graft) Extremities: no cyanosis, no edema, pulses normal (right femoral CVC), no ischemia or petechiae, other (right femoral transvenous pacemaker) Neurologic: normal mental status, non-focal exam Psychiatric: mood appropriate, affect normal CBC and BMP: 09/18/17 04:15 09/18/17 10:34 ABG, PT/INR, D-dimer: ABG POC ABG pH 7.361 (7.35-7.45) 09/15/17 22:00 POC ABG pCO2 40.1 (35-45) 09/15/17 22:00 POC ABG pO2 56 (80-105) L 09/15/17 22:00 POC ABG HCO3 22.7 09/15/17 22:00 POC ABG Total CO2 24 09/15/17 22:00 POC ABG O2 Sat 88 09/15/17 22:00 PT/INR, D-dimer PT 16.3 Sec. (12.2-14.9) H 09/15/17 13:44 INR 1.24 (0.87-1.13) H 09/15/17 13:44 Abnormal lab findings: Abnormal Labs 09/15/17 09/15/17 09/15/17 13:44 13:44 13:44 RDW 16.8 H Plt Count 86 L Lymph # 0.9 L Seg Neutrophils % 72.2 H PT 16.3 H INR 1.24 H APTT 37.3 H POC ABG pO2 Potassium Chloride 107.2 H Carbon Dioxide 19 L BUN 58 H Creatinine 9.6 H Glucose 173 H POC Glucose Magnesium 2.40 H Total Protein 5.3 L Albumin 3.3 L 09/15/17 09/16/17 09/16/17 22:00 04:04 07:35 RDW Plt Count Lymph # Seg Neutrophils % PT INR APTT POC ABG pO2 56 L Potassium Chloride Carbon Dioxide 20 L BUN 65 H Creatinine 10.5 H Glucose POC Glucose 62 L Magnesium 2.50 H Total Protein Albumin 09/16/17 09/16/17 09/17/17 08:44 23:31 01:13 RDW Plt Count Lymph # Seg Neutrophils % PT INR APTT POC ABG pO2 Potassium Chloride Carbon Dioxide BUN Creatinine Glucose POC Glucose 143 H 66 L 118 H Magnesium Total Protein Albumin 09/17/17 09/17/17 09/17/17 05:46 11:13 11:13 RDW 15.9 H Plt Count 72 L Lymph # Seg Neutrophils % PT INR APTT POC ABG pO2 Potassium 5.2 H Chloride Carbon Dioxide 21 L BUN 49 H Creatinine 10.1 H Glucose POC Glucose 67 L Magnesium Total Protein Albumin Allied health notes reviewed: RT
[2017-09-17] MEDS ORDERED: ALBURX 25% (ALBUMIN) IV ONE (14:19)
[2017-09-18] MEDS: ZOFRAN IV PRN (03:32)
[2017-09-18] MEDS: DUONEB *Not for PRN Use IH SCH ×6 (04:06→22:49)
[2017-09-18 05:03] LABS: Basophils % (Auto) 0.5 % (0.0-1.8); Eosinophils % (Auto) 0.6 % (0.0-4.3); Hemoglobin 13.2 gm/dl (10.1-14.3); Lymphocytes % (Auto) 17.5 % (13.4-35.0); Mean Corpuscular HGB Conc 33 % (30-34); Mean Corpuscular Hemoglobin 30 pg (28-32); Mean Corpuscular Volume 92 fl (79-97); Monocytes # (Auto) 0.6 K/mm3 (0.0-0.8); Monocytes % (Auto) 11.1 % (0.0-7.3); Red Blood Count 4.36 M/mm3 (3.65-5.03); Red Cell Distribution Width 16.3 % (13.2-15.2)
[2017-09-18 05:05] LABS: Platelet Count 71 K/mm3 (140-440)
[2017-09-18 05:12] LABS: INR 1.07 (0.87-1.13)
[2017-09-18 05:19] LABS: Calcium 9.3 mg/dL (8.4-10.2)
[2017-09-18] MEDS ORDERED: KIONEX PO PRN (09:33)
--- NOTE | 2017-09-18 09:43 | Progress Note ---
Subjective Principal diagnosis: CHB Interval history: Patient was seen today for follow-up on multiple renal related issues Events of 24 hours vitals labs intake output medications were revieweed Tolerated hemodialysis treatment fairly well pending permanent pacemaker placement Interdisciplinary Notes were also reviewed Past medical history: Reviewed Social history: Reviewed Allergies: Reviewed Medication: Reviewed Labs: Reviewed Physical examination Gen.: No acute distress HEENT: Oral mucosa moist, mild pallor no icterus Neck: Supple no thyromegaly nodular mass or JVD Chest: Lateral basilar crackles Heart: Regular rate and rhythm S1 and S2 heard Abdomen: Soft nontender no renal bruit no CVA tenderness no suprapubic fullness Extremity: Edema approximately 1+ dry skin no purpuric rash Dermatology: Dry skin no rash Neurological: Alert awake follows commands Assessment and plan End-stage renal disease: Patient will receive hemodialysis treatment tomorrow subsequent to which will keep her on Friday schedule Patient was dialyzed with 3 potassium bath as she was admitted with complete heart block Will follow up on basic metabolic profile in the morning Anemia: Hemoglobin is satisfactory for ESRD Mild hyperkalemia this is acceptable the setting of complete heart block, will consider a 2 potassium bath tomorrow Hypotension tachycardia currently better controlled to follow cardiology to make further recommendation Poorly compliant patient and this has been addressed and discussed with patient as well as her sister yesterday Monitor dialysis related labs We'll continue to follow and make recommendation from renal standpoint Objective - Vital Signs Vital signs: Vital Signs - 12hr 09/17/17 09/17/17 09/17/17 21:51 22:00 22:11 Temperature Pulse Rate 101 H 90 97 H Pulse Rate [ Bilateral Throughout] Pulse Rate [ From Monitor] Respiratory 12 13 14 Rate Respiratory Rate [Bilateral Throughout] Blood Pressure 157/88 150/92 150/92 O2 Sat by Pulse 91 93 92 Oximetry 09/17/17 09/17/17 09/17/17 22:21 22:30 22:41 Temperature Pulse Rate 101 H 98 H 100 H Pulse Rate [ Bilateral Throughout] Pulse Rate [ From Monitor] Respiratory 12 18 15 Rate Respiratory Rate [Bilateral Throughout] Blood Pressure 150/92 162/93 150/92 O2 Sat by Pulse 93 92 92 Oximetry 09/17/17 09/17/17 09/17/17 22:51 23:00 23:11 Temperature Pulse Rate 100 H 100 H 100 H Pulse Rate [ Bilateral Throughout] Pulse Rate [ From Monitor] Respiratory 13 12 12 Rate Respiratory Rate [Bilateral Throughout] Blood Pressure 150/92 150/93 150/93 O2 Sat by Pulse 92 92 93 Oximetry 09/17/17 09/17/17 09/17/17 23:21 23:30 23:34 Temperature 99.5 F Pulse Rate 101 H 100 H Pulse Rate [ Bilateral Throughout] Pulse Rate [ From Monitor] Respiratory 15 18 Rate Respiratory Rate [Bilateral Throughout] Blood Pressure 150/93 140/88 O2 Sat by Pulse 93 92 Oximetry 09/17/17 09/17/17 09/18/17 23:41 23:51 00:00 Temperature Pulse Rate 101 H 102 H 102 H Pulse Rate [ Bilateral Throughout] Pulse Rate [ 109 H From Monitor] Respiratory 14 13 16 Rate Respiratory Rate [Bilateral Throughout] Blood Pressure 140/88 140/88 143/86 O2 Sat by Pulse 93 93 94 Oximetry 09/18/17 09/18/17 09/18/17 00:11 00:21 00:30 Temperature Pulse Rate 99 H 101 H 104 H Pulse Rate [ Bilateral Throughout] Pulse Rate [ From Monitor] Respiratory 17 16 17 Rate Respiratory Rate [Bilateral Throughout] Blood Pressure 143/86 143/86 153/88 O2 Sat by Pulse 92 93 92 Oximetry 09/18/17 09/18/17 09/18/17 00:41 00:51 01:00 Temperature Pulse Rate 103 H 97 H 98 H Pulse Rate [ Bilateral Throughout] Pulse Rate [ From Monitor] Respiratory 15 16 16 Rate Respiratory Rate [Bilateral Throughout] Blood Pressure 153/88 153/88 143/86 O2 Sat by Pulse 91 92 90 Oximetry 09/18/17 09/18/17 09/18/17 01:11 01:21 01:30 Temperature Pulse Rate 99 H 97 H 96 H Pulse Rate [ Bilateral Throughout] Pulse Rate [ From Monitor] Respiratory 17 16 14 Rate Respiratory Rate [Bilateral Throughout] Blood Pressure 153/88 153/88 143/88 O2 Sat by Pulse 90 91 93 Oximetry 09/18/17 09/18/17 09/18/17 01:41 01:51 02:00 Temperature Pulse Rate 94 H 95 H 95 H Pulse Rate [ Bilateral Throughout] Pulse Rate [ From Monitor] Respiratory 14 18 18 Rate Respiratory Rate [Bilateral Throughout] Blood Pressure 143/88 143/88 131/78 O2 Sat by Pulse 93 91 92 Oximetry 09/18/17 09/18/17 09/18/17 02:11 02:21 02:30 Temperature Pulse Rate 92 H 92 H 91 H Pulse Rate [ Bilateral Throughout] Pulse Rate [ From Monitor] Respiratory 13 16 13 Rate Respiratory Rate [Bilateral Throughout] Blood Pressure 131/78 131/78 140/82 O2 Sat by Pulse 94 94 92 Oximetry 09/18/17 09/18/17 09/18/17 02:41 02:51 03:00 Temperature Pulse Rate 91 H 90 90 Pulse Rate [ Bilateral Throughout] Pulse Rate [ From Monitor] Respiratory 15 12 11 L Rate Respiratory Rate [Bilateral Throughout] Blood Pressure 140/82 140/82 136/86 O2 Sat by Pulse 92 93 93 Oximetry 09/18/17 09/18/17 09/18/17 03:10 03:11 03:21 Temperature 98.7 F Pulse Rate 90 93 H Pulse Rate [ Bilateral Throughout] Pulse Rate [ From Monitor] Respiratory 16 16 Rate Respiratory Rate [Bilateral Throughout] Blood Pressure 136/86 136/86 O2 Sat by Pulse 96 94 Oximetry 09/18/17 09/18/17 09/18/17 03:31 03:41 03:51 Temperature Pulse Rate 88 89 90 Pulse Rate [ Bilateral Throughout] Pulse Rate [ From Monitor] Respiratory 12 21 17 Rate Respiratory Rate [Bilateral Throughout] Blood Pressure 131/106 131/106 131/106 O2 Sat by Pulse 93 94 93 Oximetry 09/18/17 09/18/17 09/18/17 04:00 04:07 04:11 Temperature Pulse Rate 88 88 Pulse Rate [ 86 Bilateral Throughout] Pulse Rate [ 90 From Monitor] Respiratory 15 16 Rate Respiratory 16 Rate [Bilateral Throughout] Blood Pressure 138/85 138/85 O2 Sat by Pulse 91 93 Oximetry 09/18/17 09/18/17 09/18/17 04:21 04:22 04:30 Temperature Pulse Rate 87 87 Pulse Rate [ 101 H Bilateral Throughout] Pulse Rate [ From Monitor] Respiratory 17 15 Rate Respiratory 18 Rate [Bilateral Throughout] Blood Pressure 138/85 156/96 O2 Sat by Pulse 94 94 Oximetry 09/18/17 09/18/17 09/18/17 04:41 04:50 05:00 Temperature Pulse Rate 88 88 91 H Pulse Rate [ Bilateral Throughout] Pulse Rate [ From Monitor] Respiratory 15 16 15 Rate Respiratory Rate [Bilateral Throughout] Blood Pressure 156/96 156/96 164/97 O2 Sat by Pulse 95 94 93 Oximetry 09/18/17 09/18/17 09/18/17 05:11 05:21 05:30 Temperature Pulse Rate 88 90 88 Pulse Rate [ Bilateral Throughout] Pulse Rate [ From Monitor] Respiratory 12 15 15 Rate Respiratory Rate [Bilateral Throughout] Blood Pressure 164/97 164/97 157/97 O2 Sat by Pulse 92 91 92 Oximetry 09/18/17 09/18/17 09/18/17 05:41 05:51 06:00 Temperature Pulse Rate 90 90 89 Pulse Rate [ Bilateral Throughout] Pulse Rate [ From Monitor] Respiratory 15 16 12 Rate Respiratory Rate [Bilateral Throughout] Blood Pressure 157/97 157/97 155/92 O2 Sat by Pulse 91 93 94 Oximetry 09/18/17 09/18/17 09/18/17 06:11 06:21 06:30 Temperature Pulse Rate 87 89 91 H Pulse Rate [ Bilateral Throughout] Pulse Rate [ From Monitor] Respiratory 16 17 14 Rate Respiratory Rate [Bilateral Throughout] Blood Pressure 155/92 155/92 171/114 O2 Sat by Pulse 91 90 92 Oximetry 09/18/17 09/18/17 09/18/17 06:41 06:51 07:00 Temperature Pulse Rate 89 89 89 Pulse Rate [ Bilateral Throughout] Pulse Rate [ From Monitor] Respiratory 10 L 15 16 Rate Respiratory Rate [Bilateral Throughout] Blood Pressure 171/114 171/114 178/108 O2 Sat by Pulse 93 93 94 Oximetry 09/18/17 09/18/17 09/18/17 07:11 07:21 07:30 Temperature Pulse Rate 89 94 H 89 Pulse Rate [ Bilateral Throughout] Pulse Rate [ From Monitor] Respiratory 19 20 11 L Rate Respiratory Rate [Bilateral Throughout] Blood Pressure 178/108 178/108 175/83 O2 Sat by Pulse 92 91 91 Oximetry 09/18/17 09/18/17 09/18/17 07:41 07:51 08:00 Temperature 99.3 F Pulse Rate 90 88 89 Pulse Rate [ Bilateral Throughout] Pulse Rate [ From Monitor] Respiratory 12 15 16 Rate Respiratory Rate [Bilateral Throughout] Blood Pressure 175/83 175/83 175/88 O2 Sat by Pulse 93 95 94 Oximetry 09/18/17 09/18/17 09/18/17 08:11 08:21 08:30 Temperature Pulse Rate 89 88 88 Pulse Rate [ Bilateral Throughout] Pulse Rate [ From Monitor] Respiratory 17 16 18 Rate Respiratory Rate [Bilateral Throughout] Blood Pressure 175/88 175/88 184/97 O2 Sat by Pulse 94 94 92 Oximetry 09/18/17 09/18/17 08:41 08:51 Temperature Pulse Rate 88 88 Pulse Rate [ Bilateral Throughout] Pulse Rate [ From Monitor] Respiratory 15 15 Rate Respiratory Rate [Bilateral Throughout] Blood Pressure 184/97 184/97 O2 Sat by Pulse 92 94 Oximetry - Lab 09/18/17 04:15 09/18/17 04:15 Most recent lab results Calcium 9.3 mg/dL (8.4-10.2) 09/18/17 04:15 Magnesium 2.50 mg/dL (1.7-2.3) H 09/16/17 04:04
[2017-09-18] MEDS: LOPRESSOR PO SCH ×2 (09:45→22:24)
[2017-09-18] MEDS ORDERED: D50W (25GM) Vial IV ONE (10:00)
--- NOTE | 2017-09-18 10:27 | Progress Note ---
Assessment and Plan Assessment: Transient CHB --> SR/ST; s/p TVP placement Accelerated HTN Chest pain, atypical - currently resolved; ECG with no acute ischemic changes; Torrie negative for AMI ESRD on HD - s/p kidney transplant Hyperkalemia - management per nephrology COPD on home O2 H/o subdural hemorrhage 5 years ago Severe pulmonary HTN - RVSP 82mmHg Thrombocytopenia Plan: Pt for tentative PPM implantation today ~2PM. Cont current medical management. Assessment and plan reviewed with pt at bedside. The patient has been seen in conjunction with Dr. Rosenberg who agrees with the assessment and plan of care. Subjective Date of service: 09/18/17 Principal diagnosis: CHB Interval history: Pt resting in bed, alert, NAD. In SR on tele with HR in 80s, BPs remain elevated. TVP in place via right groin, site c/d/i with no evidence of bleeding. Has been NPO since MN. Objective Last Vital Signs Temp 99.3 F 09/18/17 08:00 Pulse 89 09/18/17 09:45 Resp 15 09/18/17 08:51 BP 163/106 09/18/17 09:45 Pulse Ox 94 09/18/17 08:51 - Physical Examination General: No Apparent Distress HEENT: Positive: PERRL, Normocephaly, Mucus Membranes Moist Neck: Positive: neck supple, trachea midline Cardiac: Positive: Reg Rate and Rhythm, S1/S2, Systolic Murmur Lungs: Positive: clear to auscultation Neuro: Positive: Grossly Intact Abdomen: Positive: Soft. Negative: Tender Skin: Positive: Clear. Negative: Rash, Wound Musculoskeletal: No Fluid Collection, No Pain, Normal Range of Motion Extremities: Absent: edema - Labs and Meds Coagulation 09/18/17 Range/Units 04:15 PT 14.5 (12.2-14.9) Sec. INR 1.07 (0.87-1.13) CBC 09/17/17 09/18/17 Range/Units 11:13 04:15 WBC 5.6 5.6 (4.5-11.0) K/mm3 RBC 4.06 4.36 (3.65-5.03) M/mm3 Hgb 12.3 13.2 (10.1-14.3) gm/dl Hct 37.3 40.0 (30.3-42.9) % Plt Count 72 L 71 L (140-440) K/mm3 Lymph # 1.0 L (1.2-5.4) K/mm3 [place] # 0.6 (0.0-0.8) K/mm3 Eos # 0.0 (0.0-0.4) K/mm3 Baso # 0.0 (0.0-0.1) K/mm3 Comprehensive Metabolic Panel 09/17/17 09/18/17 Range/Units 11:13 04:15 Sodium 142 137 (137-145) mmol/L Potassium 5.2 H 5.3 H (3.6-5.0) mmol/L Chloride 100.5 95.3 L (98-107) mmol/L Carbon Dioxide 21 L 24 (22-30) mmol/L BUN 49 H 28 H (7-17) mg/dL Creatinine 10.1 H 6.3 H (0.7-1.2) mg/dL Glucose 86 123 H (65-100) mg/dL Calcium 9.3 9.3 (8.4-10.2) mg/dL - Imaging and Cardiology EKG: report reviewed, image reviewed Echo: report reviewed (03/2016: EF 55-60%, trace MR, mild TR, mild LVH, impaired relaxation. ) - Telemetry EKG Rhythm: Sinus Rhythm AV and intraventricular conduction: complete (3) AV block
--- NOTE | 2017-09-18 11:08 | Progress Note ---
Assessment and Plan Symptomatic Bradycardia Complete Heart Block Chronic Hypoxemic Resp Failure ESRD on Dialysis HTN Thrombocytopenia - s/p temporary transvenous pacemaker - for PPM today - continue supplemental oxygen to keep sats > 90% - continue bronchodilators and pulmonary toilet - continue HD/UF per nephrology prescription - Adjust antihypertensives per nephrology - continue GI & VTE prophylaxis - follow platelet count ...re-evaluate in am & prn Subjective Date of service: 09/18/17 Principal diagnosis: Complete Heart Block; Symptomatic Bradycardia; Hypoxemic Resp Failure Interval history: Patient is seen today for: Complete Heart Block; Symptomatic Bradycardia; Hypoxemic Resp Failure Seen and examined at bedside; 24hour events reviewed; nursing and respiratory care staff consulted; no adverse overnight events reported to me; headed to bed laborer for pacemaker placement today; No N/V/F/C; no acute chest pains; or palpitations; no recurrent bradyarrythmia Objective Vital Signs - 12hr 09/17/17 09/17/17 09/17/17 23:11 23:21 23:30 Temperature Pulse Rate 100 H 101 H 100 H Pulse Rate [ Bilateral Throughout] Pulse Rate [ From Monitor] Respiratory 12 15 18 Rate Respiratory Rate [Bilateral Throughout] Blood Pressure 150/93 150/93 140/88 O2 Sat by Pulse 93 93 92 Oximetry 09/17/17 09/17/17 09/17/17 23:34 23:41 23:51 Temperature 99.5 F Pulse Rate 101 H 102 H Pulse Rate [ Bilateral Throughout] Pulse Rate [ From Monitor] Respiratory 14 13 Rate Respiratory Rate [Bilateral Throughout] Blood Pressure 140/88 140/88 O2 Sat by Pulse 93 93 Oximetry 09/18/17 09/18/17 09/18/17 00:00 00:11 00:21 Temperature Pulse Rate 102 H 99 H 101 H Pulse Rate [ Bilateral Throughout] Pulse Rate [ 109 H From Monitor] Respiratory 16 17 16 Rate Respiratory Rate [Bilateral Throughout] Blood Pressure 143/86 143/86 143/86 O2 Sat by Pulse 94 92 93 Oximetry 09/18/17 09/18/17 09/18/17 00:30 00:41 00:51 Temperature Pulse Rate 104 H 103 H 97 H Pulse Rate [ Bilateral Throughout] Pulse Rate [ From Monitor] Respiratory 17 15 16 Rate Respiratory Rate [Bilateral Throughout] Blood Pressure 153/88 153/88 153/88 O2 Sat by Pulse 92 91 92 Oximetry 09/18/17 09/18/17 09/18/17 01:00 01:11 01:21 Temperature Pulse Rate 98 H 99 H 97 H Pulse Rate [ Bilateral Throughout] Pulse Rate [ From Monitor] Respiratory 16 17 16 Rate Respiratory Rate [Bilateral Throughout] Blood Pressure 143/86 153/88 153/88 O2 Sat by Pulse 90 90 91 Oximetry 09/18/17 09/18/17 09/18/17 01:30 01:41 01:51 Temperature Pulse Rate 96 H 94 H 95 H Pulse Rate [ Bilateral Throughout] Pulse Rate [ From Monitor] Respiratory 14 14 18 Rate Respiratory Rate [Bilateral Throughout] Blood Pressure 143/88 143/88 143/88 O2 Sat by Pulse 93 93 91 Oximetry 09/18/17 09/18/17 09/18/17 02:00 02:11 02:21 Temperature Pulse Rate 95 H 92 H 92 H Pulse Rate [ Bilateral Throughout] Pulse Rate [ From Monitor] Respiratory 18 13 16 Rate Respiratory Rate [Bilateral Throughout] Blood Pressure 131/78 131/78 131/78 O2 Sat by Pulse 92 94 94 Oximetry 09/18/17 09/18/17 09/18/17 02:30 02:41 02:51 Temperature Pulse Rate 91 H 91 H 90 Pulse Rate [ Bilateral Throughout] Pulse Rate [ From Monitor] Respiratory 13 15 12 Rate Respiratory Rate [Bilateral Throughout] Blood Pressure 140/82 140/82 140/82 O2 Sat by Pulse 92 92 93 Oximetry 09/18/17 09/18/17 09/18/17 03:00 03:10 03:11 Temperature 98.7 F Pulse Rate 90 90 Pulse Rate [ Bilateral Throughout] Pulse Rate [ From Monitor] Respiratory 11 L 16 Rate Respiratory Rate [Bilateral Throughout] Blood Pressure 136/86 136/86 O2 Sat by Pulse 93 96 Oximetry 09/18/17 09/18/17 09/18/17 03:21 03:31 03:41 Temperature Pulse Rate 93 H 88 89 Pulse Rate [ Bilateral Throughout] Pulse Rate [ From Monitor] Respiratory 16 12 21 Rate Respiratory Rate [Bilateral Throughout] Blood Pressure 136/86 131/106 131/106 O2 Sat by Pulse 94 93 94 Oximetry 09/18/17 09/18/17 09/18/17 03:51 04:00 04:07 Temperature Pulse Rate 90 88 Pulse Rate [ 86 Bilateral Throughout] Pulse Rate [ 90 From Monitor] Respiratory 17 15 Rate Respiratory 16 Rate [Bilateral Throughout] Blood Pressure 131/106 138/85 O2 Sat by Pulse 93 91 Oximetry 09/18/17 09/18/17 09/18/17 04:11 04:21 04:22 Temperature Pulse Rate 88 87 Pulse Rate [ 101 H Bilateral Throughout] Pulse Rate [ From Monitor] Respiratory 16 17 Rate Respiratory 18 Rate [Bilateral Throughout] Blood Pressure 138/85 138/85 O2 Sat by Pulse 93 94 Oximetry 09/18/17 09/18/17 09/18/17 04:30 04:41 04:50 Temperature Pulse Rate 87 88 88 Pulse Rate [ Bilateral Throughout] Pulse Rate [ From Monitor] Respiratory 15 15 16 Rate Respiratory Rate [Bilateral Throughout] Blood Pressure 156/96 156/96 156/96 O2 Sat by Pulse 94 95 94 Oximetry 09/18/17 09/18/17 09/18/17 05:00 05:11 05:21 Temperature Pulse Rate 91 H 88 90 Pulse Rate [ Bilateral Throughout] Pulse Rate [ From Monitor] Respiratory 15 12 15 Rate Respiratory Rate [Bilateral Throughout] Blood Pressure 164/97 164/97 164/97 O2 Sat by Pulse 93 92 91 Oximetry 09/18/17 09/18/17 09/18/17 05:30 05:41 05:51 Temperature Pulse Rate 88 90 90 Pulse Rate [ Bilateral Throughout] Pulse Rate [ From Monitor] Respiratory 15 15 16 Rate Respiratory Rate [Bilateral Throughout] Blood Pressure 157/97 157/97 157/97 O2 Sat by Pulse 92 91 93 Oximetry 09/18/17 09/18/17 09/18/17 06:00 06:11 06:21 Temperature Pulse Rate 89 87 89 Pulse Rate [ Bilateral Throughout] Pulse Rate [ From Monitor] Respiratory 12 16 17 Rate Respiratory Rate [Bilateral Throughout] Blood Pressure 155/92 155/92 155/92 O2 Sat by Pulse 94 91 90 Oximetry 09/18/17 09/18/17 09/18/17 06:30 06:41 06:51 Temperature Pulse Rate 91 H 89 89 Pulse Rate [ Bilateral Throughout] Pulse Rate [ From Monitor] Respiratory 14 10 L 15 Rate Respiratory Rate [Bilateral Throughout] Blood Pressure 171/114 171/114 171/114 O2 Sat by Pulse 92 93 93 Oximetry 09/18/17 09/18/17 09/18/17 07:00 07:11 07:21 Temperature Pulse Rate 89 89 94 H Pulse Rate [ Bilateral Throughout] Pulse Rate [ From Monitor] Respiratory 16 19 20 Rate Respiratory Rate [Bilateral Throughout] Blood Pressure 178/108 178/108 178/108 O2 Sat by Pulse 94 92 91 Oximetry 09/18/17 09/18/17 09/18/17 07:30 07:41 07:51 Temperature Pulse Rate 89 90 88 Pulse Rate [ Bilateral Throughout] Pulse Rate [ From Monitor] Respiratory 11 L 12 15 Rate Respiratory Rate [Bilateral Throughout] Blood Pressure 175/83 175/83 175/83 O2 Sat by Pulse 91 93 95 Oximetry 09/18/17 09/18/17 09/18/17 08:00 08:11 08:21 Temperature 99.3 F Pulse Rate 89 89 88 Pulse Rate [ Bilateral Throughout] Pulse Rate [ From Monitor] Respiratory 16 17 16 Rate Respiratory Rate [Bilateral Throughout] Blood Pressure 175/88 175/88 175/88 O2 Sat by Pulse 94 94 94 Oximetry 09/18/17 09/18/17 09/18/17 08:30 08:41 08:51 Temperature Pulse Rate 88 88 88 Pulse Rate [ Bilateral Throughout] Pulse Rate [ From Monitor] Respiratory 18 15 15 Rate Respiratory Rate [Bilateral Throughout] Blood Pressure 184/97 184/97 184/97 O2 Sat by Pulse 92 92 94 Oximetry 09/18/17 09:45 Temperature Pulse Rate 89 Pulse Rate [ Bilateral Throughout] Pulse Rate [ From Monitor] Respiratory Rate Respiratory Rate [Bilateral Throughout] Blood Pressure 163/106 O2 Sat by Pulse Oximetry Constitutional: no acute distress, alert Eyes: non-icteric ENT: oropharynx moist Neck: supple, no lymphadenopathy, no JVD, other (No thyromegaly) Effort: normal Ascultation: Bilateral: clear, diminished breath sounds Percussion: Bilateral: not dull Cardiovascular: other (S1,S2 no murmurs, active precordium) Gastrointestinal: normoactive bowel sounds, soft, non-tender, non-distended Integumentary: normal, other (right forearm AV-graft) Extremities: no cyanosis, no edema, pulses normal, no ischemia or petechiae, other (right femoral transvenous pacemaker) Neurologic: normal mental status, non-focal exam, pupils equal and round Psychiatric: mood appropriate, affect normal CBC and BMP: 09/20/17 09:11 09/21/17 08:02 ABG, PT/INR, D-dimer: ABG POC ABG pH 7.361 (7.35-7.45) 09/15/17 22:00 POC ABG pCO2 40.1 (35-45) 09/15/17 22:00 POC ABG pO2 56 (80-105) L 09/15/17 22:00 POC ABG HCO3 22.7 09/15/17 22:00 POC ABG Total CO2 24 09/15/17 22:00 POC ABG O2 Sat 88 09/15/17 22:00 PT/INR, D-dimer PT 14.5 Sec. (12.2-14.9) 09/18/17 04:15 INR 1.07 (0.87-1.13) 09/18/17 04:15 Abnormal lab findings: Abnormal Labs 09/15/17 09/15/17 09/15/17 13:44 13:44 13:44 RDW 16.8 H Plt Count 86 L [place] % (Auto) Lymph # 0.9 L Seg Neutrophils % 72.2 H PT 16.3 H INR 1.24 H APTT 37.3 H POC ABG pO2 Potassium Chloride 107.2 H Carbon Dioxide 19 L BUN 58 H Creatinine 9.6 H Glucose 173 H POC Glucose Magnesium 2.40 H Total Protein 5.3 L Albumin 3.3 L 09/15/17 09/16/17 09/16/17 22:00 04:04 07:35 RDW Plt Count [place] % (Auto) Lymph # Seg Neutrophils % PT INR APTT POC ABG pO2 56 L Potassium Chloride Carbon Dioxide 20 L BUN 65 H Creatinine 10.5 H Glucose POC Glucose 62 L Magnesium 2.50 H Total Protein Albumin 09/16/17 09/16/17 09/17/17 08:44 23:31 01:13 RDW Plt Count [place] % (Auto) Lymph # Seg Neutrophils % PT INR APTT POC ABG pO2 Potassium Chloride Carbon Dioxide BUN Creatinine Glucose POC Glucose 143 H 66 L 118 H Magnesium Total Protein Albumin 09/17/17 09/17/17 09/17/17 05:46 11:13 11:13 RDW 15.9 H Plt Count 72 L [place] % (Auto) Lymph # Seg Neutrophils % PT INR APTT POC ABG pO2 Potassium 5.2 H Chloride Carbon Dioxide 21 L BUN 49 H Creatinine 10.1 H Glucose POC Glucose 67 L Magnesium Total Protein Albumin 09/17/17 09/18/17 09/18/17 17:36 04:15 04:15 RDW 16.3 H Plt Count 71 L [place] % (Auto) 11.1 H Lymph # 1.0 L Seg Neutrophils % 70.3 H PT INR APTT POC ABG pO2 Potassium 5.3 H Chloride 95.3 L Carbon Dioxide BUN 28 H Creatinine 6.3 H Glucose 123 H POC Glucose 118 H Magnesium Total Protein Albumin 09/18/17 05:14 RDW Plt Count [place] % (Auto) Lymph # Seg Neutrophils % PT INR APTT POC ABG pO2 Potassium Chloride Carbon Dioxide BUN Creatinine Glucose POC Glucose 116 H Magnesium Total Protein Albumin Chest x-ray: image reviewed
[2017-09-18] MEDS ORDERED: NACL 0.45% 1000 ML 1,000 ML IV SCH (13:00)
[2017-09-18] MEDS ORDERED: ANCEF/STERILE WATER 2 GM/20 ML 2 GM/20 ML SYRINGE IV NR (13:00)
[2017-09-18] MEDS ORDERED: NACL 0.9% 1,000 ML, VANCOMYCIN VIAL 1,000 MG IR ONE (13:15)
[2017-09-18] MEDS ORDERED: MARCAINE 0.5% INFILTRATI ONE (13:43)
[2017-09-18] MEDS ORDERED: XYLOCAINE 2% INFILTRATI ONE (13:43)
[2017-09-18] MEDS ORDERED: ANCEF/STERILE WATER 2 GM/20 ML 2 GM/20 ML SYRINGE IV ONE (13:44)
[2017-09-18] MEDS ORDERED: NACL 0.9% 500 ML 500 ML ONE (13:44)
[2017-09-18] MEDS ORDERED: VANCOMYCIN VIAL 1,000 MG in NACL 0.9% 1,000 ML IRRIGATION ONE (14:58)
[2017-09-18] MEDS: VERSED ONE ×2 (14:59→15:10)
[2017-09-18] MEDS: SUBLIMAZE ONE ×3 (15:05→16:04)
[2017-09-18] MEDS ORDERED: BENADRYL ONE (15:10)
[2017-09-18] MEDS ORDERED: APRESOLINE ONE (15:52)
[2017-09-18] MEDS ORDERED: VERSED ONE (16:06)
--- NOTE | 2017-09-18 17:30 | XRay Report ---
FINAL REPORT EXAM: XR CHEST 1V AP HISTORY: Pacemaker Postop TECHNIQUE: Frontal portable examination of the chest PRIORS: None FINDINGS: An electronic cardiac device obscures a portion of the left chest, limiting the examination. Cable entry is via the left subclavian vein. Lead distal tips are noted in the region the right atrium and right ventricle. No pneumothorax. Cardiac silhouette size slightly enlarged. Prominent vascular markings may reflect congestion. No evidence of pleural effusion. No acute displaced fracture. Nonspecific consolidation or masslike opacity is noted in the right perihilar region. This may reflect prominent right main pulmonary artery which raises suspicion of pulmonary hypertension. The differential includes adenopathy or right lung mass. IMPRESSION: Right midlung perihilar opacity may be prominence of the right main pulmonary artery secondary to pulmonary hypertension. Recommend followup chest CT, with IV contrast if possible, to exclude adenopathy or lung cancer Cardiomegaly with suggestion of vascular congestion
[2017-09-18] MEDS ORDERED: VANCOMYCIN/NS 1 GM/250 ML 1 GM/250 ML BAG IV SCH (18:30)
[2017-09-18] MEDS: PERCOCET 5/325 PO PRN (23:17)
[2017-09-19] MEDS: DULCOLAX PR PRN (00:22)
[2017-09-19] MEDS: MILK OF MAGNESIA PO PRN (01:01)
[2017-09-19] MEDS: DUONEB *Not for PRN Use IH SCH ×6 (01:41→20:43)
[2017-09-19] MEDS: PERCOCET 5/325 PO PRN ×2 (05:53→17:42)
--- NOTE | 2017-09-19 07:15 | Progress Note ---
Assessment and Plan /Cardiogenic shock, improved Pt admitted to ICU, started IV pressor support with dobutamin ( off since ) Cardiology following, Pt is s/p TVP placement, Plan to have PPM today /HTN, uncontrolled held all BB, CCB started on hydralazine, but she was getting tachycardia cont to monitor, now on BB /Acute on chronic respiratory failure likely from cardiogenic shock, and underlying COPD CXR suggestive for pulmonary congestion she is on home O2 cont supplemental O2, duenebs /COPD cont O2 n/c. and nebulizer /CHB (complete heart block) Cardiology consulted, s/p Transcutaneous pacing, Pt taken urgently to laborer pipeline for intervention. Now on TVP. PPM placement tomorrow /ESRD has h/o renal transplant Nephrology consulted for dialysis, monitor uop q shift, dialysis per renal. /H/o hemorrhagic CVA shows no focal deficit now closely monitor with frequent neuro assessment / Encephalopathy, resolved likely Metabolic encephalopathy: appears more alert and awake today - resolved dialysis as per renal team, supportive care, treat underlying cause /hyperkalemia likely from ESRD kayexalate if k level >5.2 /DVT prophylaxis lovenox The high probability of a clinically significant, sudden or life threatening deterioration of the [cardiac, respiratory, renal] system(s) required my full and direct attention, intervention and personal management. The aggregate critical care time was [66] minutes. This time is in addition to time spent performing reported procedures but includes the following: [x] Data Review and interpretation [x] Patient assessment and monitoring of vital signs [x] Documentation [x] Medication orders and management Brief history: The pt is a 57 YO female with a past medical history significant for ESRD on HD, s/p kidney transplant, COPD on home O2, HTN, diastolic dysfunction, subdural hemorrhage is followed by Dr. Camarillo presented with c/o low BP and slow HR. Per pt's sister, BP at home was reportedly found to be 60s/ 30s with HR in 20s and EMS was called. Upon EMS arrival, pt's HR was found to be in 20s and external pacing pads were applied and initiated dopamine gtt for hypotension. Pt was then taken to laborer pipeline for emergent TVP placement. Radiological test: CXR - mild cardiomegaly and pulmonary venous congestion Hospitalist Physical exam: GENERAL: elderly female lying on bed HEENT: Normocephalic. Atraumatic. No conjunctival congestion or icterus. Patient has very dry mucous membranes. NECK: Supple. Trachea midline. CHEST/LUNGS: few crackles auscultated bilaterally, breathing nonlabored. on n/c HEART/CARDIOVASCULAR: S1 and S2 positive. ABDOMEN: Abdomen is soft, nontender. Patient has normal bowel sounds. SKIN: There is no rash. Warm and dry. NEURO: No focal motor deficit. Follows command. MUSCULOSKELETAL: No joint effusion or tenderness. EXTRIMITY: No edema, no cyanosis or clubbing. TVP in place via right groin, site c/d/i with no evidence of bleeding. Subjective Date of service: 09/18/17 Principal diagnosis: CHB Interval history: Pt seen and examined Pt resting in bed, c/o nausea and palpitation. No family at bedside. Pt to have pacemaker placement today daughter at bedside, updated Objective - Constitutional Vitals: Vital Signs - 12hr 09/18/17 09/18/17 09/18/17 19:21 19:31 19:41 Temperature Pulse Rate 74 73 Pulse Rate [ Bilateral Throughout] Pulse Rate [ From Monitor] Pulse Rate [ Left Dorsalis Pedis] Pulse Rate [ Left Radial] Pulse Rate [ Right Dorsalis Pedis] Pulse Rate [ Right Radial] Respiratory 16 18 Rate Respiratory Rate [Bilateral Throughout] Respiratory Rate [ generalized] Blood Pressure 145/78 145/78 145/78 O2 Sat by Pulse 95 95 96 Oximetry 09/18/17 09/18/17 09/18/17 19:45 19:51 19:58 Temperature 99.3 F Pulse Rate 73 Pulse Rate [ Bilateral Throughout] Pulse Rate [ 78 From Monitor] Pulse Rate [ 78 Left Dorsalis Pedis] Pulse Rate [ 78 Left Radial] Pulse Rate [ 78 Right Dorsalis Pedis] Pulse Rate [ 78 Right Radial] Respiratory 20 17 Rate Respiratory Rate [Bilateral Throughout] Respiratory Rate [ generalized] Blood Pressure 145/78 O2 Sat by Pulse 95 97 Oximetry 09/18/17 09/18/17 09/18/17 20:00 20:01 20:03 Temperature Pulse Rate 72 Pulse Rate [ 72 Bilateral Throughout] Pulse Rate [ From Monitor] Pulse Rate [ Left Dorsalis Pedis] Pulse Rate [ Left Radial] Pulse Rate [ Right Dorsalis Pedis] Pulse Rate [ Right Radial] Respiratory 22 Rate Respiratory 20 Rate [Bilateral Throughout] Respiratory 17 Rate [ generalized] Blood Pressure 152/31 O2 Sat by Pulse 96 Oximetry 09/18/17 09/18/17 09/18/17 20:11 20:20 20:21 Temperature Pulse Rate 73 69 Pulse Rate [ 74 Bilateral Throughout] Pulse Rate [ From Monitor] Pulse Rate [ Left Dorsalis Pedis] Pulse Rate [ Left Radial] Pulse Rate [ Right Dorsalis Pedis] Pulse Rate [ Right Radial] Respiratory 9 L 18 Rate Respiratory 20 Rate [Bilateral Throughout] Respiratory Rate [ generalized] Blood Pressure 152/31 152/31 O2 Sat by Pulse 98 99 Oximetry 09/18/17 09/18/17 09/18/17 20:31 20:41 20:51 Temperature Pulse Rate 78 79 81 Pulse Rate [ Bilateral Throughout] Pulse Rate [ From Monitor] Pulse Rate [ Left Dorsalis Pedis] Pulse Rate [ Left Radial] Pulse Rate [ Right Dorsalis Pedis] Pulse Rate [ Right Radial] Respiratory 18 17 10 L Rate Respiratory Rate [Bilateral Throughout] Respiratory Rate [ generalized] Blood Pressure 152/31 152/31 152/31 O2 Sat by Pulse 98 95 96 Oximetry 09/18/17 09/18/17 09/18/17 21:00 21:11 21:21 Temperature Pulse Rate 83 82 82 Pulse Rate [ Bilateral Throughout] Pulse Rate [ From Monitor] Pulse Rate [ Left Dorsalis Pedis] Pulse Rate [ Left Radial] Pulse Rate [ Right Dorsalis Pedis] Pulse Rate [ Right Radial] Respiratory 18 17 18 Rate Respiratory Rate [Bilateral Throughout] Respiratory Rate [ generalized] Blood Pressure 152/94 152/94 152/94 O2 Sat by Pulse 96 96 95 Oximetry 09/18/17 09/18/17 09/18/17 21:31 21:41 21:51 Temperature Pulse Rate 82 88 87 Pulse Rate [ Bilateral Throughout] Pulse Rate [ From Monitor] Pulse Rate [ Left Dorsalis Pedis] Pulse Rate [ Left Radial] Pulse Rate [ Right Dorsalis Pedis] Pulse Rate [ Right Radial] Respiratory 18 17 18 Rate Respiratory Rate [Bilateral Throughout] Respiratory Rate [ generalized] Blood Pressure 152/94 152/94 152/94 O2 Sat by Pulse 95 95 95 Oximetry 09/18/17 09/18/17 09/18/17 21:53 22:00 22:11 Temperature Pulse Rate 87 86 87 Pulse Rate [ Bilateral Throughout] Pulse Rate [ From Monitor] Pulse Rate [ Left Dorsalis Pedis] Pulse Rate [ Left Radial] Pulse Rate [ Right Dorsalis Pedis] Pulse Rate [ Right Radial] Respiratory 16 19 Rate Respiratory Rate [Bilateral Throughout] Respiratory 17 Rate [ generalized] Blood Pressure 149/92 149/92 O2 Sat by Pulse 94 94 Oximetry 09/18/17 09/18/17 09/18/17 22:21 22:24 22:29 Temperature Pulse Rate 87 84 88 Pulse Rate [ Bilateral Throughout] Pulse Rate [ From Monitor] Pulse Rate [ Left Dorsalis Pedis] Pulse Rate [ Left Radial] Pulse Rate [ Right Dorsalis Pedis] Pulse Rate [ Right Radial] Respiratory 18 16 Rate Respiratory Rate [Bilateral Throughout] Respiratory Rate [ generalized] Blood Pressure 149/92 149/92 149/92 O2 Sat by Pulse 92 92 Oximetry 09/18/17 09/18/17 09/18/17 22:31 22:41 22:51 Temperature Pulse Rate 87 88 84 Pulse Rate [ Bilateral Throughout] Pulse Rate [ From Monitor] Pulse Rate [ Left Dorsalis Pedis] Pulse Rate [ Left Radial] Pulse Rate [ Right Dorsalis Pedis] Pulse Rate [ Right Radial] Respiratory 19 18 9 L Rate Respiratory Rate [Bilateral Throughout] Respiratory Rate [ generalized] Blood Pressure 149/92 149/92 149/92 O2 Sat by Pulse 91 91 93 Oximetry 09/18/17 09/18/17 09/18/17 23:01 23:11 23:17 Temperature Pulse Rate 86 81 Pulse Rate [ Bilateral Throughout] Pulse Rate [ From Monitor] Pulse Rate [ Left Dorsalis Pedis] Pulse Rate [ Left Radial] Pulse Rate [ Right Dorsalis Pedis] Pulse Rate [ Right Radial] Respiratory 13 13 14 Rate Respiratory Rate [Bilateral Throughout] Respiratory Rate [ generalized] Blood Pressure 130/76 130/76 O2 Sat by Pulse 90 94 Oximetry 09/18/17 09/18/17 09/18/17 23:21 23:31 23:41 Temperature Pulse Rate 78 79 75 Pulse Rate [ Bilateral Throughout] Pulse Rate [ From Monitor] Pulse Rate [ Left Dorsalis Pedis] Pulse Rate [ Left Radial] Pulse Rate [ Right Dorsalis Pedis] Pulse Rate [ Right Radial] Respiratory 11 L 12 15 Rate Respiratory Rate [Bilateral Throughout] Respiratory Rate [ generalized] Blood Pressure 130/76 130/76 130/76 O2 Sat by Pulse 96 96 97 Oximetry 09/18/17 09/18/17 09/19/17 23:50 23:51 00:00 Temperature 98.4 F Pulse Rate 74 Pulse Rate [ Bilateral Throughout] Pulse Rate [ 76 From Monitor] Pulse Rate [ 76 Left Dorsalis Pedis] Pulse Rate [ 76 Left Radial] Pulse Rate [ 76 Right Dorsalis Pedis] Pulse Rate [ 76 Right Radial] Respiratory 12 21 Rate Respiratory Rate [Bilateral Throughout] Respiratory Rate [ generalized] Blood Pressure 130/76 O2 Sat by Pulse 96 96 Oximetry 09/19/17 09/19/17 09/19/17 00:01 00:11 00:21 Temperature Pulse Rate 71 68 68 Pulse Rate [ Bilateral Throughout] Pulse Rate [ From Monitor] Pulse Rate [ Left Dorsalis Pedis] Pulse Rate [ Left Radial] Pulse Rate [ Right Dorsalis Pedis] Pulse Rate [ Right Radial] Respiratory 13 14 8 L Rate Respiratory Rate [Bilateral Throughout] Respiratory Rate [ generalized] Blood Pressure 108/59 108/59 130/76 O2 Sat by Pulse 96 96 97 Oximetry 09/19/17 09/19/17 09/19/17 00:31 00:41 00:51 Temperature Pulse Rate 66 64 64 Pulse Rate [ Bilateral Throughout] Pulse Rate [ From Monitor] Pulse Rate [ Left Dorsalis Pedis] Pulse Rate [ Left Radial] Pulse Rate [ Right Dorsalis Pedis] Pulse Rate [ Right Radial] Respiratory 13 17 16 Rate Respiratory Rate [Bilateral Throughout] Respiratory Rate [ generalized] Blood Pressure 130/76 130/76 130/76 O2 Sat by Pulse 96 98 Oximetry 09/19/17 09/19/17 09/19/17 01:01 01:11 01:21 Temperature Pulse Rate 66 62 63 Pulse Rate [ Bilateral Throughout] Pulse Rate [ From Monitor] Pulse Rate [ Left Dorsalis Pedis] Pulse Rate [ Left Radial] Pulse Rate [ Right Dorsalis Pedis] Pulse Rate [ Right Radial] Respiratory 13 25 H 19 Rate Respiratory Rate [Bilateral Throughout] Respiratory Rate [ generalized] Blood Pressure 130/76 93/61 93/61 O2 Sat by Pulse 96 97 Oximetry 09/19/17 09/19/17 09/19/17 01:31 01:41 01:51 Temperature Pulse Rate 61 60 57 L Pulse Rate [ Bilateral Throughout] Pulse Rate [ From Monitor] Pulse Rate [ Left Dorsalis Pedis] Pulse Rate [ Left Radial] Pulse Rate [ Right Dorsalis Pedis] Pulse Rate [ Right Radial] Respiratory 22 22 20 Rate Respiratory Rate [Bilateral Throughout] Respiratory Rate [ generalized] Blood Pressure 93/61 93/61 93/61 O2 Sat by Pulse 95 92 94 Oximetry 09/19/17 09/19/17 09/19/17 02:01 02:10 02:22 Temperature Pulse Rate 56 L 56 L 58 L Pulse Rate [ Bilateral Throughout] Pulse Rate [ From Monitor] Pulse Rate [ Left Dorsalis Pedis] Pulse Rate [ Left Radial] Pulse Rate [ Right Dorsalis Pedis] Pulse Rate [ Right Radial] Respiratory 19 21 18 Rate Respiratory Rate [Bilateral Throughout] Respiratory Rate [ generalized] Blood Pressure 106/67 106/67 106/67 O2 Sat by Pulse 96 97 95 Oximetry 09/19/17 09/19/17 09/19/17 02:31 02:41 02:51 Temperature Pulse Rate 56 L 58 L 59 L Pulse Rate [ Bilateral Throughout] Pulse Rate [ From Monitor] Pulse Rate [ Left Dorsalis Pedis] Pulse Rate [ Left Radial] Pulse Rate [ Right Dorsalis Pedis] Pulse Rate [ Right Radial] Respiratory 20 12 13 Rate Respiratory Rate [Bilateral Throughout] Respiratory Rate [ generalized] Blood Pressure 106/67 106/67 O2 Sat by Pulse 95 95 94 Oximetry 09/19/17 09/19/17 09/19/17 03:01 03:11 03:21 Temperature Pulse Rate 63 64 67 Pulse Rate [ Bilateral Throughout] Pulse Rate [ From Monitor] Pulse Rate [ Left Dorsalis Pedis] Pulse Rate [ Left Radial] Pulse Rate [ Right Dorsalis Pedis] Pulse Rate [ Right Radial] Respiratory 13 17 22 Rate Respiratory Rate [Bilateral Throughout] Respiratory Rate [ generalized] Blood Pressure 125/102 125/102 125/102 O2 Sat by Pulse 96 99 94 Oximetry 09/19/17 09/19/17 09/19/17 03:31 03:41 03:44 Temperature 98.8 F Pulse Rate 66 69 Pulse Rate [ Bilateral Throughout] Pulse Rate [ From Monitor] Pulse Rate [ Left Dorsalis Pedis] Pulse Rate [ Left Radial] Pulse Rate [ Right Dorsalis Pedis] Pulse Rate [ Right Radial] Respiratory 18 13 Rate Respiratory Rate [Bilateral Throughout] Respiratory Rate [ generalized] Blood Pressure 125/102 125/102 O2 Sat by Pulse 94 94 Oximetry 09/19/17 09/19/17 09/19/17 03:51 04:00 04:01 Temperature Pulse Rate 67 66 Pulse Rate [ Bilateral Throughout] Pulse Rate [ 112 H From Monitor] Pulse Rate [ 112 H Left Dorsalis Pedis] Pulse Rate [ 112 H Left Radial] Pulse Rate [ 112 H Right Dorsalis Pedis] Pulse Rate [ 112 H Right Radial] Respiratory 17 17 15 Rate Respiratory Rate [Bilateral Throughout] Respiratory Rate [ generalized] Blood Pressure 125/102 117/77 O2 Sat by Pulse 94 96 96 Oximetry 09/19/17 09/19/17 09/19/17 04:11 04:21 04:31 Temperature Pulse Rate 63 63 67 Pulse Rate [ Bilateral Throughout] Pulse Rate [ From Monitor] Pulse Rate [ Left Dorsalis Pedis] Pulse Rate [ Left Radial] Pulse Rate [ Right Dorsalis Pedis] Pulse Rate [ Right Radial] Respiratory 13 17 17 Rate Respiratory Rate [Bilateral Throughout] Respiratory Rate [ generalized] Blood Pressure 117/77 117/77 117/77 O2 Sat by Pulse 94 95 94 Oximetry 09/19/17 09/19/17 09/19/17 04:41 04:51 05:00 Temperature Pulse Rate 67 66 67 Pulse Rate [ Bilateral Throughout] Pulse Rate [ From Monitor] Pulse Rate [ Left Dorsalis Pedis] Pulse Rate [ Left Radial] Pulse Rate [ Right Dorsalis Pedis] Pulse Rate [ Right Radial] Respiratory 15 17 16 Rate Respiratory Rate [Bilateral Throughout] Respiratory Rate [ generalized] Blood Pressure 117/77 117/77 116/78 O2 Sat by Pulse 94 94 95 Oximetry 09/19/17 09/19/17 09/19/17 05:11 05:21 05:31 Temperature Pulse Rate 67 69 69 Pulse Rate [ Bilateral Throughout] Pulse Rate [ From Monitor] Pulse Rate [ Left Dorsalis Pedis] Pulse Rate [ Left Radial] Pulse Rate [ Right Dorsalis Pedis] Pulse Rate [ Right Radial] Respiratory 17 16 15 Rate Respiratory Rate [Bilateral Throughout] Respiratory Rate [ generalized] Blood Pressure 116/78 116/78 116/78 O2 Sat by Pulse 95 95 94 Oximetry 09/19/17 09/19/17 09/19/17 05:41 05:51 05:53 Temperature Pulse Rate 70 67 Pulse Rate [ Bilateral Throughout] Pulse Rate [ From Monitor] Pulse Rate [ Left Dorsalis Pedis] Pulse Rate [ Left Radial] Pulse Rate [ Right Dorsalis Pedis] Pulse Rate [ Right Radial] Respiratory 12 13 14 Rate Respiratory Rate [Bilateral Throughout] Respiratory Rate [ generalized] Blood Pressure 116/78 116/78 O2 Sat by Pulse 96 Oximetry - Labs CBC & Chem 7: 09/18/17 04:15 09/18/17 10:34
--- NOTE | 2017-09-19 09:40 | Progress Note ---
Assessment and Plan Assessment: Transient CHB --> s/p TVP; s/p PPM implantation PPM in situ Accelerated HTN - improved Chest pain, atypical - currently resolved; ECG with no acute ischemic changes; Torrie negative for AMI ESRD on HD - s/p kidney transplant Hyperkalemia - management per nephrology COPD on home O2 H/o subdural hemorrhage 5 years ago Severe pulmonary HTN - RVSP 82mmHg Thrombocytopenia Plan: s/p PPM implantation yesterday. Device interrogation this AM revealed normal device function. Post-procedure CXR showed no pneumothorax. Cont current medical management. Currently stable cardiac status. Pt may tx to telemetry from CCU. Assessment and plan reviewed with pt at bedside. The patient has been seen in conjunction with Dr. Rosenberg who agrees with the assessment and plan of care. Subjective Date of service: 09/19/17 Principal diagnosis: CHB Interval history: Pt resting in bed, NAD. In SR on tele with HR in 80s-90s, BPs WNL. Pt s/p PPM implantation yesterday afternoon. TVP d/c'd. Left pectoralis pressure dressing removed, telfa and tegaderm dressing in place, dressing c/d/i with no evidence of bleeding or hematoma. Left arm immobilizer in place. Objective Last Vital Signs Temp 98.4 F 09/19/17 08:00 Pulse 65 09/19/17 08:01 Resp 12 09/19/17 08:01 BP 119/74 09/19/17 08:01 Pulse Ox 97 09/19/17 08:01 - Physical Examination General: No Apparent Distress HEENT: Positive: PERRL, Normocephaly, Mucus Membranes Moist Neck: Positive: neck supple, trachea midline Cardiac: Positive: Reg Rate and Rhythm, S1/S2, Systolic Murmur Lungs: Positive: clear to auscultation Neuro: Positive: Grossly Intact Abdomen: Positive: Soft. Negative: Tender Skin: Positive: Clear. Negative: Rash, Wound Musculoskeletal: No Fluid Collection, No Pain, Normal Range of Motion Extremities: Absent: edema - Labs and Meds Comprehensive Metabolic Panel 09/18/17 Range/Units 10:34 Potassium 4.8 (3.6-5.0) mmol/L - Imaging and Cardiology EKG: report reviewed, image reviewed Echo: report reviewed (03/2016: EF 55-60%, trace MR, mild TR, mild LVH, impaired relaxation. ) AV and intraventricular conduction: complete (3) AV block
[2017-09-19] MEDS ORDERED: NACL 0.9% 100 ML IV PRN (10:41)
--- NOTE | 2017-09-19 10:41 | Progress Note ---
Subjective Principal diagnosis: CHB Interval history: Patient was seen today for follow-up on multiple renal related issues He is a 24 hours noted Tolerated hemodialysis treatment fairly well pending permanent pacemaker placement Interdisciplinary Notes were also reviewed Past medical history: Reviewed Social history: Reviewed Allergies: Reviewed Medication: Reviewed Labs: Reviewed Physical examination Gen.: No acute distress HEENT: Oral mucosa moist, mild pallor no icterus Neck: Supple no thyromegaly nodular mass or JVD Chest: Lateral basilar crackles Heart: Regular rate and rhythm S1 and S2 heard Abdomen: Soft nontender no renal bruit no CVA tenderness no suprapubic fullness Extremity: Edema approximately 1+ dry skin no purpuric rash,fistula appears to be tense and has sharp bruit Dermatology: Dry skin no rash Neurological: Alert awake follows commands Assessment and plan End-stage renal disease: continue with hemodialysis as tolerated Very noncompliant patient Counseling educated admitted with complete heart block Patient doesn't malfunctioning fistula will need vascular surgery evaluation Patient's sister who is Lithuanian-speaking has been counseled and educated regarding all the hospital related issues with patient's consent She does have good understanding of her health situation and does communicate with patient on a daily basis We'll continue to follow and make recommendation from renal standpoint Objective - Vital Signs Vital signs: Vital Signs - 12hr 09/18/17 09/18/17 09/18/17 22:51 23:01 23:11 Temperature Pulse Rate 84 86 81 Pulse Rate [ From Monitor] Pulse Rate [ Left Dorsalis Pedis] Pulse Rate [ Left Radial] Pulse Rate [ Right Dorsalis Pedis] Pulse Rate [ Right Radial] Respiratory 9 L 13 13 Rate Blood Pressure 149/92 130/76 130/76 O2 Sat by Pulse 93 90 94 Oximetry 09/18/17 09/18/17 09/18/17 23:17 23:21 23:31 Temperature Pulse Rate 78 79 Pulse Rate [ From Monitor] Pulse Rate [ Left Dorsalis Pedis] Pulse Rate [ Left Radial] Pulse Rate [ Right Dorsalis Pedis] Pulse Rate [ Right Radial] Respiratory 14 11 L 12 Rate Blood Pressure 130/76 130/76 O2 Sat by Pulse 96 96 Oximetry 09/18/17 09/18/17 09/18/17 23:41 23:50 23:51 Temperature 98.4 F Pulse Rate 75 74 Pulse Rate [ From Monitor] Pulse Rate [ Left Dorsalis Pedis] Pulse Rate [ Left Radial] Pulse Rate [ Right Dorsalis Pedis] Pulse Rate [ Right Radial] Respiratory 15 12 Rate Blood Pressure 130/76 130/76 O2 Sat by Pulse 97 96 Oximetry 09/19/17 09/19/17 09/19/17 00:00 00:01 00:11 Temperature Pulse Rate 71 68 Pulse Rate [ 76 From Monitor] Pulse Rate [ 76 Left Dorsalis Pedis] Pulse Rate [ 76 Left Radial] Pulse Rate [ 76 Right Dorsalis Pedis] Pulse Rate [ 76 Right Radial] Respiratory 21 13 14 Rate Blood Pressure 108/59 108/59 O2 Sat by Pulse 96 96 96 Oximetry 09/19/17 09/19/17 09/19/17 00:21 00:31 00:41 Temperature Pulse Rate 68 66 64 Pulse Rate [ From Monitor] Pulse Rate [ Left Dorsalis Pedis] Pulse Rate [ Left Radial] Pulse Rate [ Right Dorsalis Pedis] Pulse Rate [ Right Radial] Respiratory 8 L 13 17 Rate Blood Pressure 130/76 130/76 130/76 O2 Sat by Pulse 97 96 98 Oximetry 09/19/17 09/19/17 09/19/17 00:51 01:01 01:11 Temperature Pulse Rate 64 66 62 Pulse Rate [ From Monitor] Pulse Rate [ Left Dorsalis Pedis] Pulse Rate [ Left Radial] Pulse Rate [ Right Dorsalis Pedis] Pulse Rate [ Right Radial] Respiratory 16 13 25 H Rate Blood Pressure 130/76 130/76 93/61 O2 Sat by Pulse 96 Oximetry 09/19/17 09/19/17 09/19/17 01:21 01:31 01:41 Temperature Pulse Rate 63 61 60 Pulse Rate [ From Monitor] Pulse Rate [ Left Dorsalis Pedis] Pulse Rate [ Left Radial] Pulse Rate [ Right Dorsalis Pedis] Pulse Rate [ Right Radial] Respiratory 19 22 22 Rate Blood Pressure 93/61 93/61 93/61 O2 Sat by Pulse 97 95 92 Oximetry 09/19/17 09/19/17 09/19/17 01:51 02:01 02:10 Temperature Pulse Rate 57 L 56 L 56 L Pulse Rate [ From Monitor] Pulse Rate [ Left Dorsalis Pedis] Pulse Rate [ Left Radial] Pulse Rate [ Right Dorsalis Pedis] Pulse Rate [ Right Radial] Respiratory 20 19 21 Rate Blood Pressure 93/61 106/67 106/67 O2 Sat by Pulse 94 96 97 Oximetry 09/19/17 09/19/17 09/19/17 02:22 02:31 02:41 Temperature Pulse Rate 58 L 56 L 58 L Pulse Rate [ From Monitor] Pulse Rate [ Left Dorsalis Pedis] Pulse Rate [ Left Radial] Pulse Rate [ Right Dorsalis Pedis] Pulse Rate [ Right Radial] Respiratory 18 20 12 Rate Blood Pressure 106/67 106/67 O2 Sat by Pulse 95 95 95 Oximetry 09/19/17 09/19/17 09/19/17 02:51 03:01 03:11 Temperature Pulse Rate 59 L 63 64 Pulse Rate [ From Monitor] Pulse Rate [ Left Dorsalis Pedis] Pulse Rate [ Left Radial] Pulse Rate [ Right Dorsalis Pedis] Pulse Rate [ Right Radial] Respiratory 13 13 17 Rate Blood Pressure 106/67 125/102 125/102 O2 Sat by Pulse 94 96 99 Oximetry 09/19/17 09/19/17 09/19/17 03:21 03:31 03:41 Temperature Pulse Rate 67 66 69 Pulse Rate [ From Monitor] Pulse Rate [ Left Dorsalis Pedis] Pulse Rate [ Left Radial] Pulse Rate [ Right Dorsalis Pedis] Pulse Rate [ Right Radial] Respiratory 22 18 13 Rate Blood Pressure 125/102 125/102 125/102 O2 Sat by Pulse 94 94 94 Oximetry 09/19/17 09/19/17 09/19/17 03:44 03:51 04:00 Temperature 98.8 F Pulse Rate 67 Pulse Rate [ 112 H From Monitor] Pulse Rate [ 112 H Left Dorsalis Pedis] Pulse Rate [ 112 H Left Radial] Pulse Rate [ 112 H Right Dorsalis Pedis] Pulse Rate [ 112 H Right Radial] Respiratory 17 17 Rate Blood Pressure 125/102 O2 Sat by Pulse 94 96 Oximetry 09/19/17 09/19/17 09/19/17 04:01 04:11 04:21 Temperature Pulse Rate 66 63 63 Pulse Rate [ From Monitor] Pulse Rate [ Left Dorsalis Pedis] Pulse Rate [ Left Radial] Pulse Rate [ Right Dorsalis Pedis] Pulse Rate [ Right Radial] Respiratory 15 13 17 Rate Blood Pressure 117/77 117/77 117/77 O2 Sat by Pulse 96 94 95 Oximetry 09/19/17 09/19/17 09/19/17 04:31 04:41 04:51 Temperature Pulse Rate 67 67 66 Pulse Rate [ From Monitor] Pulse Rate [ Left Dorsalis Pedis] Pulse Rate [ Left Radial] Pulse Rate [ Right Dorsalis Pedis] Pulse Rate [ Right Radial] Respiratory 17 15 17 Rate Blood Pressure 117/77 117/77 117/77 O2 Sat by Pulse 94 94 94 Oximetry 09/19/17 09/19/17 09/19/17 05:00 05:11 05:21 Temperature Pulse Rate 67 67 69 Pulse Rate [ From Monitor] Pulse Rate [ Left Dorsalis Pedis] Pulse Rate [ Left Radial] Pulse Rate [ Right Dorsalis Pedis] Pulse Rate [ Right Radial] Respiratory 16 17 16 Rate Blood Pressure 116/78 116/78 116/78 O2 Sat by Pulse 95 95 95 Oximetry 09/19/17 09/19/17 09/19/17 05:31 05:41 05:51 Temperature Pulse Rate 69 70 67 Pulse Rate [ From Monitor] Pulse Rate [ Left Dorsalis Pedis] Pulse Rate [ Left Radial] Pulse Rate [ Right Dorsalis Pedis] Pulse Rate [ Right Radial] Respiratory 15 12 13 Rate Blood Pressure 116/78 116/78 116/78 O2 Sat by Pulse 94 96 Oximetry 09/19/17 09/19/17 09/19/17 05:53 06:00 08:00 Temperature 98.4 F Pulse Rate 68 Pulse Rate [ From Monitor] Pulse Rate [ Left Dorsalis Pedis] Pulse Rate [ Left Radial] Pulse Rate [ Right Dorsalis Pedis] Pulse Rate [ Right Radial] Respiratory 14 21 Rate Blood Pressure 121/77 O2 Sat by Pulse 96 Oximetry 09/19/17 08:01 Temperature Pulse Rate 65 Pulse Rate [ From Monitor] Pulse Rate [ Left Dorsalis Pedis] Pulse Rate [ Left Radial] Pulse Rate [ Right Dorsalis Pedis] Pulse Rate [ Right Radial] Respiratory 12 Rate Blood Pressure 119/74 O2 Sat by Pulse 97 Oximetry - Lab 09/20/17 09:11 09/21/17 08:02 Most recent lab results Calcium 9.3 mg/dL (8.4-10.2) 09/18/17 04:15 Magnesium 2.50 mg/dL (1.7-2.3) H 09/16/17 04:04
[2017-09-19] MEDS: LOPRESSOR PO SCH ×2 (13:11→22:56)
--- NOTE | 2017-09-19 14:56 | Progress Note ---
Assessment and Plan /Cardiogenic shock, improved Pt admitted to ICU, started IV pressor support with dobutamin ( off since ) Cardiology following, Pt is s/p TVP placement, s/p PPM placement 09/18/17 /HTN, uncontrolled held all BB, CCB started on hydralazine, but she was getting tachycardia cont to monitor, now on BB /Acute on chronic respiratory failure likely from cardiogenic shock, and underlying COPD CXR suggestive for pulmonary congestion she is on home O2 cont supplemental O2, duenebs /COPD cont O2 n/c. and nebulizer /CHB (complete heart block) Cardiology consulted, s/p Transcutaneous pacing, Pt taken urgently to laborer electroplating for intervention. Now on TVP. PPM placement tomorrow /ESRD has h/o renal transplant Nephrology consulted for dialysis, monitor uop q shift, dialysis per renal. /H/o hemorrhagic CVA shows no focal deficit now closely monitor with frequent neuro assessment / Encephalopathy, resolved likely Metabolic encephalopathy: appears more alert and awake today - resolved dialysis as per renal team, supportive care, treat underlying cause /hyperkalemia likely from ESRD kayexalate if k level >5.2 /DVT prophylaxis lovenox WILL TRANSFER OUT OFF icu TO TELE TODAY Brief history: The pt is a 57 YO female with a past medical history significant for ESRD on HD, s/p kidney transplant, COPD on home O2, HTN, diastolic dysfunction, subdural hemorrhage is followed by Dr. Camarillo presented with c/o low BP and slow HR. Per pt's sister, BP at home was reportedly found to be 60s/ 30s with HR in 20s and EMS was called. Upon EMS arrival, pt's HR was found to be in 20s and external pacing pads were applied and initiated dopamine gtt for hypotension. Pt was then taken to laborer electroplating for emergent TVP placement. Radiological test: CXR - mild cardiomegaly and pulmonary venous congestion Hospitalist Physical exam: GENERAL: elderly female lying on bed HEENT: Normocephalic. Atraumatic. No conjunctival congestion or icterus. Patient has very dry mucous membranes. NECK: Supple. Trachea midline. CHEST/LUNGS: few crackles auscultated bilaterally, breathing nonlabored. on n/ c. DRESSING OVER NEWLY PLACED PACEMAKER ON PLACE HEART/CARDIOVASCULAR: S1 and S2 positive. ABDOMEN: Abdomen is soft, nontender. Patient has normal bowel sounds. SKIN: There is no rash. Warm and dry. NEURO: No focal motor deficit. Follows command. MUSCULOSKELETAL: No joint effusion or tenderness. EXTRIMITY: No edema, no cyanosis or clubbing. TVP in place via right groin, site c/d/i with no evidence of bleeding. Subjective Date of service: 09/19/17 Principal diagnosis: CHB Interval history: Pt seen and examined Pt resting in bed, c/o mild headache. had pacemaker placement yesterday daughter at bedside, updated Objective - Constitutional Vitals: Vital Signs - 12hr 09/19/17 09/19/17 09/19/17 03:01 03:11 03:21 Temperature Pulse Rate 63 64 67 Pulse Rate [ From Monitor] Pulse Rate [ Left Dorsalis Pedis] Pulse Rate [ Left Radial] Pulse Rate [ Right Dorsalis Pedis] Pulse Rate [ Right Radial] Respiratory 13 17 22 Rate Blood Pressure 125/102 125/102 125/102 O2 Sat by Pulse 96 99 94 Oximetry 09/19/17 09/19/17 09/19/17 03:31 03:41 03:44 Temperature 98.8 F Pulse Rate 66 69 Pulse Rate [ From Monitor] Pulse Rate [ Left Dorsalis Pedis] Pulse Rate [ Left Radial] Pulse Rate [ Right Dorsalis Pedis] Pulse Rate [ Right Radial] Respiratory 18 13 Rate Blood Pressure 125/102 125/102 O2 Sat by Pulse 94 94 Oximetry 09/19/17 09/19/17 09/19/17 03:51 04:00 04:01 Temperature Pulse Rate 67 66 Pulse Rate [ 112 H From Monitor] Pulse Rate [ 112 H Left Dorsalis Pedis] Pulse Rate [ 112 H Left Radial] Pulse Rate [ 112 H Right Dorsalis Pedis] Pulse Rate [ 112 H Right Radial] Respiratory 17 17 15 Rate Blood Pressure 125/102 117/77 O2 Sat by Pulse 94 96 96 Oximetry 09/19/17 09/19/17 09/19/17 04:11 04:21 04:31 Temperature Pulse Rate 63 63 67 Pulse Rate [ From Monitor] Pulse Rate [ Left Dorsalis Pedis] Pulse Rate [ Left Radial] Pulse Rate [ Right Dorsalis Pedis] Pulse Rate [ Right Radial] Respiratory 13 17 17 Rate Blood Pressure 117/77 117/77 117/77 O2 Sat by Pulse 94 95 94 Oximetry 09/19/17 09/19/17 09/19/17 04:41 04:51 05:00 Temperature Pulse Rate 67 66 67 Pulse Rate [ From Monitor] Pulse Rate [ Left Dorsalis Pedis] Pulse Rate [ Left Radial] Pulse Rate [ Right Dorsalis Pedis] Pulse Rate [ Right Radial] Respiratory 15 17 16 Rate Blood Pressure 117/77 117/77 116/78 O2 Sat by Pulse 94 94 95 Oximetry 09/19/17 09/19/17 09/19/17 05:11 05:21 05:31 Temperature Pulse Rate 67 69 69 Pulse Rate [ From Monitor] Pulse Rate [ Left Dorsalis Pedis] Pulse Rate [ Left Radial] Pulse Rate [ Right Dorsalis Pedis] Pulse Rate [ Right Radial] Respiratory 17 16 15 Rate Blood Pressure 116/78 116/78 116/78 O2 Sat by Pulse 95 95 94 Oximetry 09/19/17 09/19/17 09/19/17 05:41 05:51 05:53 Temperature Pulse Rate 70 67 Pulse Rate [ From Monitor] Pulse Rate [ Left Dorsalis Pedis] Pulse Rate [ Left Radial] Pulse Rate [ Right Dorsalis Pedis] Pulse Rate [ Right Radial] Respiratory 12 13 14 Rate Blood Pressure 116/78 116/78 O2 Sat by Pulse 96 Oximetry 09/19/17 09/19/17 09/19/17 06:00 08:00 08:01 Temperature 98.4 F Pulse Rate 68 65 Pulse Rate [ From Monitor] Pulse Rate [ Left Dorsalis Pedis] Pulse Rate [ Left Radial] Pulse Rate [ Right Dorsalis Pedis] Pulse Rate [ Right Radial] Respiratory 21 12 Rate Blood Pressure 121/77 119/74 O2 Sat by Pulse 96 97 Oximetry 09/19/17 09/19/17 09/19/17 10:01 12:00 12:01 Temperature 98.6 F Pulse Rate 70 75 Pulse Rate [ From Monitor] Pulse Rate [ Left Dorsalis Pedis] Pulse Rate [ Left Radial] Pulse Rate [ Right Dorsalis Pedis] Pulse Rate [ Right Radial] Respiratory 13 17 Rate Blood Pressure 100/61 135/57 O2 Sat by Pulse 95 Oximetry 09/19/17 14:00 Temperature Pulse Rate 68 Pulse Rate [ From Monitor] Pulse Rate [ Left Dorsalis Pedis] Pulse Rate [ Left Radial] Pulse Rate [ Right Dorsalis Pedis] Pulse Rate [ Right Radial] Respiratory 12 Rate Blood Pressure 146/85 O2 Sat by Pulse 93 Oximetry - Labs CBC & Chem 7: 1216/17 09:11 09/20/17 09:11
--- NOTE | 2017-09-19 15:09 | Progress Note ---
Assessment and Plan - Patient Problems (1) CHB (complete heart block) Current Visit: Yes Status: Acute Plan to address problem: s/p permanent pacemaker placement Cardiology monitoring OK to transfer to telemetry (2) Chronic respiratory failure with hypoxia Current Visit: Yes Status: Acute Plan to address problem: Continue with supplemental oxygen to keep O2 sats>92% Bronchodilaotrs prn (3) ESRD (end stage renal disease) Current Visit: Yes Status: Acute Plan to address problem: Failed renal transplant. HD per renal service (4) Hypertension Current Visit: Yes Status: Acute Plan to address problem: Sub-optimal control. Adjust medications (5) Thrombocytopenia Current Visit: Yes Status: Acute Plan to address problem: Monitor counts closely. Monitor for bleeding Subjective Date of service: 09/19/17 Principal diagnosis: CHB Interval history: s/p Permanent pacemaker placement Seen and examined. Vitals, labs, medications, chart reviewed. No acute overnight events. Discussed in ICU interdisciplinary rounds She denies any chest pain, no shortness of breath. No fevers or chills. No nausea or vomiting. No abdominal pain. Denies any dizziness or vertigo Objective Vital Signs - 12hr 09/19/17 09/19/17 09/19/17 03:11 03:21 03:31 Temperature Pulse Rate 64 67 66 Pulse Rate [ From Monitor] Pulse Rate [ Left Dorsalis Pedis] Pulse Rate [ Left Radial] Pulse Rate [ Right Dorsalis Pedis] Pulse Rate [ Right Radial] Respiratory 17 22 18 Rate Blood Pressure 125/102 125/102 125/102 O2 Sat by Pulse 99 94 94 Oximetry 09/19/17 09/19/17 09/19/17 03:41 03:44 03:51 Temperature 98.8 F Pulse Rate 69 67 Pulse Rate [ From Monitor] Pulse Rate [ Left Dorsalis Pedis] Pulse Rate [ Left Radial] Pulse Rate [ Right Dorsalis Pedis] Pulse Rate [ Right Radial] Respiratory 13 17 Rate Blood Pressure 125/102 125/102 O2 Sat by Pulse 94 94 Oximetry 09/19/17 09/19/17 09/19/17 04:00 04:01 04:11 Temperature Pulse Rate 66 63 Pulse Rate [ 112 H From Monitor] Pulse Rate [ 112 H Left Dorsalis Pedis] Pulse Rate [ 112 H Left Radial] Pulse Rate [ 112 H Right Dorsalis Pedis] Pulse Rate [ 112 H Right Radial] Respiratory 17 15 13 Rate Blood Pressure 117/77 117/77 O2 Sat by Pulse 96 96 94 Oximetry 09/19/17 09/19/17 09/19/17 04:21 04:31 04:41 Temperature Pulse Rate 63 67 67 Pulse Rate [ From Monitor] Pulse Rate [ Left Dorsalis Pedis] Pulse Rate [ Left Radial] Pulse Rate [ Right Dorsalis Pedis] Pulse Rate [ Right Radial] Respiratory 17 17 15 Rate Blood Pressure 117/77 117/77 117/77 O2 Sat by Pulse 95 94 94 Oximetry 09/19/17 09/19/17 09/19/17 04:51 05:00 05:11 Temperature Pulse Rate 66 67 67 Pulse Rate [ From Monitor] Pulse Rate [ Left Dorsalis Pedis] Pulse Rate [ Left Radial] Pulse Rate [ Right Dorsalis Pedis] Pulse Rate [ Right Radial] Respiratory 17 16 17 Rate Blood Pressure 117/77 116/78 116/78 O2 Sat by Pulse 94 95 95 Oximetry 09/19/17 09/19/17 09/19/17 05:21 05:31 05:41 Temperature Pulse Rate 69 69 70 Pulse Rate [ From Monitor] Pulse Rate [ Left Dorsalis Pedis] Pulse Rate [ Left Radial] Pulse Rate [ Right Dorsalis Pedis] Pulse Rate [ Right Radial] Respiratory 16 15 12 Rate Blood Pressure 116/78 116/78 116/78 O2 Sat by Pulse 95 94 Oximetry 09/19/17 09/19/17 09/19/17 05:51 05:53 06:00 Temperature Pulse Rate 67 68 Pulse Rate [ From Monitor] Pulse Rate [ Left Dorsalis Pedis] Pulse Rate [ Left Radial] Pulse Rate [ Right Dorsalis Pedis] Pulse Rate [ Right Radial] Respiratory 13 14 21 Rate Blood Pressure 116/78 121/77 O2 Sat by Pulse 96 96 Oximetry 09/19/17 09/19/17 09/19/17 08:00 08:01 10:01 Temperature 98.4 F Pulse Rate 65 70 Pulse Rate [ From Monitor] Pulse Rate [ Left Dorsalis Pedis] Pulse Rate [ Left Radial] Pulse Rate [ Right Dorsalis Pedis] Pulse Rate [ Right Radial] Respiratory 12 13 Rate Blood Pressure 119/74 100/61 O2 Sat by Pulse 97 95 Oximetry 09/19/17 09/19/17 09/19/17 12:00 12:01 14:00 Temperature 98.6 F Pulse Rate 75 68 Pulse Rate [ From Monitor] Pulse Rate [ Left Dorsalis Pedis] Pulse Rate [ Left Radial] Pulse Rate [ Right Dorsalis Pedis] Pulse Rate [ Right Radial] Respiratory 17 12 Rate Blood Pressure 135/57 146/85 O2 Sat by Pulse 93 Oximetry Constitutional: no acute distress Eyes: non-icteric ENT: oropharynx dry Neck: supple, no lymphadenopathy, no JVD, other (right EJ catheter) Effort: normal Ascultation: Bilateral: clear, diminished breath sounds Cardiovascular: other (S1,S2 no murmurs, active precordium) Gastrointestinal: normoactive bowel sounds, soft, non-tender, non-distended, guarding Integumentary: normal, other (right forearm AV-graft) Extremities: no cyanosis, no edema, pulses normal (right femoral CVC), no ischemia or petechiae, other (right femoral transvenous pacemaker) Neurologic: normal mental status, non-focal exam, pupils equal and round Psychiatric: mood appropriate, affect normal CBC and BMP: 09/20/17 09:11 09/20/17 09:11 ABG, PT/INR, D-dimer: ABG POC ABG pH 7.361 (7.35-7.45) 09/15/17 22:00 POC ABG pCO2 40.1 (35-45) 09/15/17 22:00 POC ABG pO2 56 (80-105) L 09/15/17 22:00 POC ABG HCO3 22.7 09/15/17 22:00 POC ABG Total CO2 24 09/15/17 22:00 POC ABG O2 Sat 88 09/15/17 22:00 PT/INR, D-dimer PT 14.5 Sec. (12.2-14.9) 09/18/17 04:15 INR 1.07 (0.87-1.13) 09/18/17 04:15 Abnormal lab findings: Abnormal Labs 09/15/17 09/15/17 09/15/17 13:44 13:44 13:44 RDW 16.8 H Plt Count 86 L [place] % (Auto) Lymph # 0.9 L Seg Neutrophils % 72.2 H PT 16.3 H INR 1.24 H APTT 37.3 H POC ABG pO2 Potassium Chloride 107.2 H Carbon Dioxide 19 L BUN 58 H Creatinine 9.6 H Glucose 173 H POC Glucose Magnesium 2.40 H Total Protein 5.3 L Albumin 3.3 L 09/15/17 09/16/17 09/16/17 22:00 04:04 07:35 RDW Plt Count [place] % (Auto) Lymph # Seg Neutrophils % PT INR APTT POC ABG pO2 56 L Potassium Chloride Carbon Dioxide 20 L BUN 65 H Creatinine 10.5 H Glucose POC Glucose 62 L Magnesium 2.50 H Total Protein Albumin 09/16/17 09/16/17 09/17/17 08:44 23:31 01:13 RDW Plt Count [place] % (Auto) Lymph # Seg Neutrophils % PT INR APTT POC ABG pO2 Potassium Chloride Carbon Dioxide BUN Creatinine Glucose POC Glucose 143 H 66 L 118 H Magnesium Total Protein Albumin 09/17/17 09/17/17 09/17/17 05:46 11:13 11:13 RDW 15.9 H Plt Count 72 L [place] % (Auto) Lymph # Seg Neutrophils % PT INR APTT POC ABG pO2 Potassium 5.2 H Chloride Carbon Dioxide 21 L BUN 49 H Creatinine 10.1 H Glucose POC Glucose 67 L Magnesium Total Protein Albumin 09/17/17 09/18/17 09/18/17 17:36 04:15 04:15 RDW 16.3 H Plt Count 71 L [place] % (Auto) 11.1 H Lymph # 1.0 L Seg Neutrophils % 70.3 H PT INR APTT POC ABG pO2 Potassium 5.3 H Chloride 95.3 L Carbon Dioxide BUN 28 H Creatinine 6.3 H Glucose 123 H POC Glucose 118 H Magnesium Total Protein Albumin 09/18/17 05:14 RDW Plt Count [place] % (Auto) Lymph # Seg Neutrophils % PT INR APTT POC ABG pO2 Potassium Chloride Carbon Dioxide BUN Creatinine Glucose POC Glucose 116 H Magnesium Total Protein Albumin Chest x-ray: image reviewed Allied health notes reviewed: nursing
[2017-09-19] MEDS ORDERED: NACL 0.9 (PRIMING MACHINE ONLY DIALYSIS) MC ONE (17:35)
[2017-09-19] MEDS: APRESOLINE IV PRN (18:00)
[2017-09-19] MEDS: ZOFRAN IV PRN (20:09)
[2017-09-19] MEDS ORDERED: NACL 0.9% 500 ML 500 ML IV ONE (21:15)
[2017-09-19] MEDS ORDERED: NACL 0.9% 250ML 250 ML IV ONE (22:41)
[2017-09-20] MEDS: DUONEB *Not for PRN Use IH SCH ×4 (02:59→21:00)
[2017-09-20] MEDS: ZOFRAN IV PRN ×3 (05:54→21:33)
--- NOTE | 2017-09-20 08:50 | Progress Note ---
Subjective Principal diagnosis: CHB Interval history: Patient was seen today for follow-up on multiple renal related issues Events of 24 hours vitals labs intake output medications were revieweed sister is here patient wants to go on Currently she does not have any labs done Tolerated hemodialysis treatment fairly well pending permanent pacemaker placement Interdisciplinary Notes were also reviewed Past medical history: Reviewed Social history: Reviewed Allergies: Reviewed Medication: Reviewed Labs: Reviewed Physical examination Gen.: No acute distress HEENT: Oral mucosa moist, mild pallor no icterus Neck: Supple no thyromegaly nodular mass or JVD Chest: Lateral basilar crackles Heart: Regular rate and rhythm S1 and S2 heard Abdomen: Soft nontender no renal bruit no CVA tenderness no suprapubic fullness Extremity: Edema approximately 1+ dry skin no purpuric rash,fistula appears to be tense and has sharp bruit Dermatology: Dry skin no rash Neurological: Alert awake follows commands Assessment and plan End-stage renal disease: tolerated dialysis treatment very well no complaints Noncompliance: Addressed with patient and sister both Hyperkalemia; patient does need fistulogram, she will need hemodialysis today likely this is resulting from access malfunction Status post pacemaker placement for complete heart block malfunctioning fistula likely has stenosis post dialysis BUN/creatinine ration but not changing much Patient needs a vascular ultrasonogram and possibly a fistulogram please consult vascular surgery In the meantime we'll dialyze her today due to hyperkalemia We'll continue to follow and make recommendation from renal standpoint Objective - Vital Signs Vital signs: Vital Signs - 12hr 09/20/17 09/20/17 09/20/17 00:06 02:00 05:54 Temperature 99.2 F Pulse Rate 79 74 76 Respiratory 20 20 Rate Blood Pressure 114/69 Blood Pressure 96/60 [Left] O2 Sat by Pulse 93 89 Oximetry - Lab 09/20/17 09:11 09/20/17 09:11 Most recent lab results Calcium 9.3 mg/dL (8.4-10.2) 09/18/17 04:15 Magnesium 2.50 mg/dL (1.7-2.3) H 09/16/17 04:04
[2017-09-20 09:32] LABS: Basophils % (Auto) 0.2 % (0.0-1.8); Eosinophils % (Auto) 0.1 % (0.0-4.3); Hematocrit 35.7 % (30.3-42.9); Hemoglobin 11.9 gm/dl (10.1-14.3); Lymphocytes # (Auto) 0.7 K/mm3 (1.2-5.4); Lymphocytes % (Auto) 6.9 % (13.4-35.0); Mean Corpuscular HGB Conc 33 % (30-34); Mean Corpuscular Hemoglobin 30 pg (28-32); Mean Corpuscular Volume 91 fl (79-97); Monocytes # (Auto) 0.7 K/mm3 (0.0-0.8); Monocytes % (Auto) 6.5 % (0.0-7.3); Red Blood Count 3.91 M/mm3 (3.65-5.03); Red Cell Distribution Width 15.8 % (13.2-15.2)
[2017-09-20 09:41] LABS: Platelet Count 46 K/mm3 (140-440)
[2017-09-20 10:14] LABS: Calcium 9.3 mg/dL (8.4-10.2)
[2017-09-20] MEDS: LOPRESSOR PO SCH ×2 (10:42→21:38)
--- NOTE | 2017-09-20 13:35 | Progress Note ---
Assessment and Plan /Nausea/vomiting will add PPI and carafate for possible PUD if no improvement then will consult GI for possible EGD /hyperkalemia likely from ESRD, K LEVEL 5.7 TODAY ordered kayexalate if k level >5.2 also will give insulin and D50 /Cardiogenic shock, improved Pt admitted to ICU, started IV pressor support with dobutamin ( off since ) Cardiology following, Pt is s/p TVP placement, s/p PPM placement 09/18/17 /HTN, uncontrolled held all BB, CCB started on hydralazine, but she was getting tachycardia cont to monitor, now on BB /Acute on chronic respiratory failure likely from cardiogenic shock, and underlying COPD CXR suggestive for pulmonary congestion she is on home O2 cont supplemental O2, duenebs /COPD cont O2 n/c. and nebulizer /CHB (complete heart block) Cardiology consulted, s/p Transcutaneous pacing, Pt taken urgently to yard laborer for intervention. Now on TVP. PPM placement tomorrow /ESRD has h/o renal transplant Nephrology consulted for dialysis, monitor uop q shift, dialysis per renal. /H/o hemorrhagic CVA shows no focal deficit now closely monitor with frequent neuro assessment / Encephalopathy, resolved likely Metabolic encephalopathy: appears more alert and awake today - resolved dialysis as per renal team, supportive care, treat underlying cause /DVT prophylaxis lovenox WILL TRANSFER OUT OFF icu TO TELE TODAY Brief history: The pt is a 57 YO female with a past medical history significant for ESRD on HD, s/p kidney transplant, COPD on home O2, HTN, diastolic dysfunction, subdural hemorrhage is followed by Dr. Camarillo presented with c/o low BP and slow HR. Per pt's sister, BP at home was reportedly found to be 60s/ 30s with HR in 20s and EMS was called. Upon EMS arrival, pt's HR was found to be in 20s and external pacing pads were applied and initiated dopamine gtt for hypotension. Pt was then taken to yard laborer for emergent TVP placement. Radiological test: CXR - mild cardiomegaly and pulmonary venous congestion Hospitalist Physical exam: GENERAL: elderly female sitting on bed, mild distressed HEENT: Normocephalic. Atraumatic. No conjunctival congestion or icterus. Patient has very dry mucous membranes. NECK: Supple. Trachea midline. CHEST/LUNGS: few crackles auscultated bilaterally, breathing nonlabored. on n/ c. DRESSING OVER NEWLY PLACED PACEMAKER ON PLACE HEART/CARDIOVASCULAR: S1 and S2 positive. ABDOMEN: Abdomen is soft, nontender. Patient has normal bowel sounds. SKIN: There is no rash. Warm and dry. NEURO: No focal motor deficit. Follows command. MUSCULOSKELETAL: No joint effusion or tenderness. EXTRIMITY: No edema, no cyanosis or clubbing. TVP in place via right groin, site c/d/i with no evidence of bleeding. Subjective Date of service: 09/20/17 Principal diagnosis: CHB Interval history: Pt seen and examined Pt resting in bed, c/o n/v. refused HD today as she is not feeling well Objective - Constitutional Vitals: Vital Signs - 12hr 09/20/17 09/20/17 09/20/17 02:00 05:54 08:40 Temperature Pulse Rate 74 76 Pulse Rate [ 72 Anterior Bilateral Throughout] Respiratory 20 Rate Respiratory 20 Rate [Anterior Bilateral Throughout] Blood Pressure Blood Pressure 96/60 [Left] O2 Sat by Pulse 89 94 Oximetry 09/20/17 09/20/17 09/20/17 08:50 08:54 09:24 Temperature 97.8 F 97.8 F Pulse Rate 70 70 Pulse Rate [ 73 Anterior Bilateral Throughout] Respiratory 70 H 18 Rate Respiratory 20 Rate [Anterior Bilateral Throughout] Blood Pressure Blood Pressure 135/88 [Left] O2 Sat by Pulse 90 90 Oximetry 09/20/17 09/20/17 10:42 12:45 Temperature 98.6 F Pulse Rate 77 Pulse Rate [ Anterior Bilateral Throughout] Respiratory 18 Rate Respiratory Rate [Anterior Bilateral Throughout] Blood Pressure 135/88 Blood Pressure 155/84 [Left] O2 Sat by Pulse 91 Oximetry - Labs CBC & Chem 7: 09/20/17 09:11 09/20/17 09:11 Labs: Abnormal lab results 09/19/17 09/20/17 09/20/17 Range/Units 11:23 09:11 09:11 RDW 15.8 H (13.2-15.2) % Plt Count 46 L (140-440) K/mm3 Lymph % (Auto) 6.9 L (13.4-35.0) % Lymph # 0.7 L (1.2-5.4) K/mm3 Seg Neutrophils % 86.3 H (40.0-70.0) % Seg Neutrophils # 9.4 H (1.8-7.7) K/mm3 Potassium 5.9 H D (3.6-5.0) mmol/L Chloride 95.2 L (98-107) mmol/L Carbon Dioxide 18 L (22-30) mmol/L BUN 52 H (7-17) mg/dL Creatinine 6.6 H (0.7-1.2) mg/dL Glucose 112 H (65-100) mg/dL POC Glucose 121 H (70-105) Phosphorus 8.10 H (2.5-4.5) mg/dL
[2017-09-20] MEDS ORDERED: NACL 0.9% 100 ML IV PRN (13:51)
[2017-09-20] MEDS ORDERED: D50W (25GM) Vial IV ONE (14:50)
[2017-09-20] MEDS ORDERED: D50W (25GM) Syringe IV PRN (14:54)
--- NOTE | 2017-09-20 15:25 | Progress Note ---
Assessment and Plan Assessment: Transient CHB --> s/p TVP; s/p PPM implantation PPM in situ Accelerated HTN - improved Chest pain, atypical - currently resolved; ECG with no acute ischemic changes; Torrie negative for AMI ESRD on HD - s/p kidney transplant Hyperkalemia - management per nephrology COPD on home O2 H/o subdural hemorrhage 5 years ago Severe pulmonary HTN - RVSP 82mmHg Thrombocytopenia Plan: s/p PPM implantation yesterday. Device interrogation this AM revealed normal device function. Post-procedure CXR showed no pneumothorax. Cont current medical management. Currently stable cardiac status Subjective Date of service: 09/20/17 Principal diagnosis: CHB Interval history: patient comfortable,no cardiac symptoms. Objective Vital Signs Temp Pulse Pulse Pulse Resp Resp Resp 09/20/17 12:45 98.6 F 77 18 09/20/17 10:42 09/20/17 09:24 97.8 F 70 18 09/20/17 08:54 97.8 F 70 70 H 09/20/17 08:50 73 20 09/20/17 08:40 72 20 09/20/17 05:54 76 20 09/20/17 02:00 74 09/20/17 00:06 99.2 F 79 20 09/19/17 20:48 82 20 09/19/17 20:40 09/19/17 20:38 83 20 09/19/17 20:32 86 20 09/19/17 20:23 20 09/19/17 18:20 98.4 F 84 19 09/19/17 18:15 86 09/19/17 18:00 86 09/19/17 17:45 83 09/19/17 17:30 83 09/19/17 17:15 84 09/19/17 17:00 86 09/19/17 16:45 82 09/19/17 16:30 81 09/19/17 16:15 80 09/19/17 16:00 81 09/19/17 15:45 76 09/19/17 15:30 76 BP BP Pulse Ox 09/20/17 12:45 155/84 91 09/20/17 10:42 135/88 09/20/17 09:24 135/88 90 09/20/17 08:54 90 09/20/17 08:50 09/20/17 08:40 94 09/20/17 05:54 96/60 89 09/20/17 02:00 09/20/17 00:06 114/69 93 09/19/17 20:48 09/19/17 20:40 97 09/19/17 20:38 09/19/17 20:32 87/52 93 09/19/17 20:23 09/19/17 18:20 148/82 09/19/17 18:15 180/84 09/19/17 18:00 181/82 09/19/17 17:45 187/79 09/19/17 17:30 148/76 09/19/17 17:15 158/100 09/19/17 17:00 157/100 09/19/17 16:45 178/90 09/19/17 16:30 183/96 09/19/17 16:15 184/88 09/19/17 16:00 186/104 09/19/17 15:45 184/80 09/19/17 15:30 188/81 - Physical Examination General: No Apparent Distress HEENT: Positive: PERRL, Normocephaly, Mucus Membranes Moist Neck: Positive: neck supple, trachea midline Cardiac: Positive: Other (Pacemaker sit eunremarkable.) Neuro: Positive: Grossly Intact Abdomen: Positive: Soft. Negative: Tender Skin: Positive: Clear. Negative: Rash, Wound Musculoskeletal: No Fluid Collection, No Pain, Normal Range of Motion Extremities: Absent: edema - Labs and Meds CBC 09/20/17 Range/Units 09:11 WBC 10.9 (4.5-11.0) K/mm3 RBC 3.91 (3.65-5.03) M/mm3 Hgb 11.9 (10.1-14.3) gm/dl Hct 35.7 (30.3-42.9) % Plt Count 46 L (140-440) K/mm3 Lymph # 0.7 L (1.2-5.4) K/mm3 [place] # 0.7 (0.0-0.8) K/mm3 Eos # 0.0 (0.0-0.4) K/mm3 Baso # 0.0 (0.0-0.1) K/mm3 Comprehensive Metabolic Panel 09/20/17 Range/Units 09:11 Sodium 138 (137-145) mmol/L Potassium 5.9 H D (3.6-5.0) mmol/L Chloride 95.2 L (98-107) mmol/L Carbon Dioxide 18 L (22-30) mmol/L BUN 52 H (7-17) mg/dL Creatinine 6.6 H (0.7-1.2) mg/dL Glucose 112 H (65-100) mg/dL Calcium 9.3 (8.4-10.2) mg/dL - Imaging and Cardiology EKG: report reviewed, image reviewed Echo: report reviewed (03/2016: EF 55-60%, trace MR, mild TR, mild LVH, impaired relaxation. ) AV and intraventricular conduction: complete (3) AV block - Allied health notes Allied health notes reviewed: nursing
[2017-09-20] MEDS: CARAFATE PO SCH ×2 (16:15→21:35)
[2017-09-20] MEDS: PROTONIX IV SCH ×2 (16:15→21:33)
--- NOTE | 2017-09-20 16:27 | Progress Note ---
Assessment and Plan Patient weak. Resting on 2 litres O2. O2 saturation 91%. Patient admitted for complete heart block. Patient has pace maker implantation. - Patient Problems (1) Pulmonary hypertension Current Visit: Yes Status: Acute Plan to address problem: Recommend to place her on medications she taking at home for pulmonary hypertension. Continue O2 supplementation. (2) CHB (complete heart block) Current Visit: Yes Status: Acute Plan to address problem: Patient has pacemaker implantation. (3) Chronic respiratory failure with hypoxia Current Visit: Yes Status: Acute Plan to address problem: O2 supplementation 2 litres via nasal canula. Albuterol/atrovent aerosol treatments q 6 hours. (4) ESRD (end stage renal disease) Current Visit: Yes Status: Acute Plan to address problem: Management as per nephrology. (5) Hypertension Current Visit: Yes Status: Acute Plan to address problem: Management as per primary care. Subjective Date of service: 09/20/17 Principal diagnosis: CHB Interval history: Patient weak. Resting on 2 litres O2. O2 saturation 91%. Patient admitted for complete heart block. Patient has pace maker implantation. Objective Vital Signs - 12hr 09/20/17 09/20/17 09/20/17 05:54 08:40 08:50 Temperature Pulse Rate 76 Pulse Rate [ 72 73 Anterior Bilateral Throughout] Respiratory 20 Rate Respiratory 20 20 Rate [Anterior Bilateral Throughout] Blood Pressure Blood Pressure 96/60 [Left] O2 Sat by Pulse 89 94 Oximetry 09/20/17 09/20/17 09/20/17 08:54 09:24 10:42 Temperature 97.8 F 97.8 F Pulse Rate 70 70 Pulse Rate [ Anterior Bilateral Throughout] Respiratory 70 H 18 Rate Respiratory Rate [Anterior Bilateral Throughout] Blood Pressure 135/88 Blood Pressure 135/88 [Left] O2 Sat by Pulse 90 90 Oximetry 09/20/17 09/20/17 09/20/17 12:45 14:40 14:50 Temperature 98.6 F Pulse Rate 77 Pulse Rate [ 78 76 Anterior Bilateral Throughout] Respiratory 18 Rate Respiratory 18 18 Rate [Anterior Bilateral Throughout] Blood Pressure Blood Pressure 155/84 [Left] O2 Sat by Pulse 91 Oximetry Constitutional: no acute distress Eyes: non-icteric ENT: oropharynx dry Neck: supple, no lymphadenopathy, no JVD, other (right EJ catheter) Effort: normal Ascultation: Bilateral: diminished breath sounds Cardiovascular: other (S1,S2 no murmurs, active precordium) Gastrointestinal: normoactive bowel sounds, soft, non-tender, non-distended, guarding Integumentary: normal, other (right forearm AV-graft) Extremities: no cyanosis, no edema, pulses normal (right femoral CVC), no ischemia or petechiae, other (right femoral transvenous pacemaker) Neurologic: normal mental status, non-focal exam, pupils equal and round Psychiatric: mood appropriate, affect normal CBC and BMP: 09/20/17 09:11 09/20/17 09:11 ABG, PT/INR, D-dimer: ABG POC ABG pH 7.361 (7.35-7.45) 09/15/17 22:00 POC ABG pCO2 40.1 (35-45) 09/15/17 22:00 POC ABG pO2 56 (80-105) L 09/15/17 22:00 POC ABG HCO3 22.7 09/15/17 22:00 POC ABG Total CO2 24 09/15/17 22:00 POC ABG O2 Sat 88 09/15/17 22:00 PT/INR, D-dimer PT 14.5 Sec. (12.2-14.9) 09/18/17 04:15 INR 1.07 (0.87-1.13) 09/18/17 04:15 Abnormal lab findings: Abnormal Labs 09/15/17 09/15/17 09/15/17 13:44 13:44 13:44 RDW 16.8 H Plt Count 86 L Lymph % (Auto) [place] % (Auto) Lymph # 0.9 L Seg Neutrophils % 72.2 H Seg Neutrophils # PT 16.3 H INR 1.24 H APTT 37.3 H POC ABG pO2 Potassium Chloride 107.2 H Carbon Dioxide 19 L BUN 58 H Creatinine 9.6 H Glucose 173 H POC Glucose Phosphorus Magnesium 2.40 H Total Protein 5.3 L Albumin 3.3 L 09/15/17 09/16/17 09/16/17 22:00 04:04 07:35 RDW Plt Count Lymph % (Auto) [place] % (Auto) Lymph # Seg Neutrophils % Seg Neutrophils # PT INR APTT POC ABG pO2 56 L Potassium Chloride Carbon Dioxide 20 L BUN 65 H Creatinine 10.5 H Glucose POC Glucose 62 L Phosphorus Magnesium 2.50 H Total Protein Albumin 09/16/17 09/16/17 09/17/17 08:44 23:31 01:13 RDW Plt Count Lymph % (Auto) [place] % (Auto) Lymph # Seg Neutrophils % Seg Neutrophils # PT INR APTT POC ABG pO2 Potassium Chloride Carbon Dioxide BUN Creatinine Glucose POC Glucose 143 H 66 L 118 H Phosphorus Magnesium Total Protein Albumin 09/17/17 09/17/17 09/17/17 05:46 11:13 11:13 RDW 15.9 H Plt Count 72 L Lymph % (Auto) [place] % (Auto) Lymph # Seg Neutrophils % Seg Neutrophils # PT INR APTT POC ABG pO2 Potassium 5.2 H Chloride Carbon Dioxide 21 L BUN 49 H Creatinine 10.1 H Glucose POC Glucose 67 L Phosphorus Magnesium Total Protein Albumin 09/17/17 09/18/17 09/18/17 17:36 04:15 04:15 RDW 16.3 H Plt Count 71 L Lymph % (Auto) [place] % (Auto) 11.1 H Lymph # 1.0 L Seg Neutrophils % 70.3 H Seg Neutrophils # PT INR APTT POC ABG pO2 Potassium 5.3 H Chloride 95.3 L Carbon Dioxide BUN 28 H Creatinine 6.3 H Glucose 123 H POC Glucose 118 H Phosphorus Magnesium Total Protein Albumin 09/18/17 09/19/17 09/20/17 05:14 11:23 09:11 RDW 15.8 H Plt Count 46 L Lymph % (Auto) 6.9 L [place] % (Auto) Lymph # 0.7 L Seg Neutrophils % 86.3 H Seg Neutrophils # 9.4 H PT INR APTT POC ABG pO2 Potassium Chloride Carbon Dioxide BUN Creatinine Glucose POC Glucose 116 H 121 H Phosphorus Magnesium Total Protein Albumin 09/20/17 09:11 RDW Plt Count Lymph % (Auto) [place] % (Auto) Lymph # Seg Neutrophils % Seg Neutrophils # PT INR APTT POC ABG pO2 Potassium 5.9 H D Chloride 95.2 L Carbon Dioxide 18 L BUN 52 H Creatinine 6.6 H Glucose 112 H POC Glucose Phosphorus 8.10 H Magnesium Total Protein Albumin Chest x-ray: report reviewed (Cardiomegaly, Pacemaker implantation. Pulmonary hypertension.), image reviewed Allied health notes reviewed: nursing
[2017-09-20] MEDS ORDERED: KIONEX PO ONE (23:51)
--- NOTE | 2017-09-20 23:53 | Event Note ---
8:30 pm Non comolaint pt , refused dialysis D/w sister who along with several family member tried to expalined her about Hd today she still refuses risk of explained to sister who says she put her foot down and we can not force her to go
[2017-09-21] MEDS: DUONEB *Not for PRN Use IH SCH ×4 (03:03→20:42)
[2017-09-21 08:35] LABS: Calcium 9.4 mg/dL (8.4-10.2)
[2017-09-21] MEDS: CARAFATE PO SCH ×4 (08:44→21:48)
--- NOTE | 2017-09-21 08:49 | Progress Note ---
Subjective Principal diagnosis: CHB Interval history: Patient was seen today for follow-up on multiple renal related issues Events of 24 hours vitals labs intake output medications were revieweed patient's brother is here was fluent in [place] Patient refused dialysis yesterday despite counseling and education Interdisciplinary Notes were also reviewed Past medical history: Reviewed Social history: Reviewed Allergies: Reviewed Medication: Reviewed Labs: Reviewed Physical examination Gen.: No acute distress HEENT: Oral mucosa moist, mild pallor no icterus Neck: Supple no thyromegaly nodular mass or JVD Chest: Lateral basilar crackles Heart: Regular rate and rhythm S1 and S2 heard Abdomen: Soft nontender no renal bruit no CVA tenderness no suprapubic fullness Extremity: Edema approximately 1+ dry skin no purpuric rash,fistula appears to be tense and has sharp bruit Dermatology: Dry skin no rash Neurological: Alert awake follows commands Assessment and plan End-stage renal disease: tolerated dialysis treatment very well no complaints, she refused dialysis treatment yesterday despite being told that she was hyperkalemic This was treated medically patient's potassium is stable BUN/creatinine essentially not much change post dialysis Patient does need fistulogram will consult Dr. Jer Mcgowan , has he has known this patient for Hyperkalemia needs monitoring this was treated medically yesterday patient is very stubborn and fixed in her believe very poorly compliant Prognosis extremely poor mortality risk is going to be high if patient remains noncompliant this has been an issue of the dialysis clinic as well and I have discussed this with our nurse practitioner I will also address this issue with her sister yesterday over the phone and doing this hospitalization Admitted with complete heart block fortunately she was not hyperkalemic at that time and underwent permanent pacemaker placement She should get fistulogram tomorrow subsequent to which she will receive hemodialysis and doing well can be discharged to follow-up in outpatient setting We'll continue to follow and make recommendation from renal standpoint Objective - Vital Signs Vital signs: Vital Signs - 12hr 09/20/17 09/20/17 09/20/17 20:51 21:38 22:00 Temperature Pulse Rate 76 76 Respiratory Rate Blood Pressure 150/85 O2 Sat by Pulse 95 Oximetry 09/21/17 09/21/17 00:19 04:50 Temperature 98.5 F 97.8 F Pulse Rate 71 72 Respiratory 20 20 Rate Blood Pressure 125/79 134/82 O2 Sat by Pulse 90 93 Oximetry - Lab 09/20/17 09:11 09/21/17 08:02 Most recent lab results Calcium 9.4 mg/dL (8.4-10.2) 09/21/17 08:02 Phosphorus 8.10 mg/dL (2.5-4.5) H 09/20/17 09:11 Magnesium 2.50 mg/dL (1.7-2.3) H 09/16/17 04:04
[2017-09-21] MEDS: LOPRESSOR PO SCH ×2 (09:48→21:48)
[2017-09-21] MEDS: PROTONIX IV SCH ×2 (09:49→21:48)
[2017-09-21] MEDS: PERCOCET 5/325 PO PRN ×2 (10:27→23:35)
[2017-09-21] MEDS: NORVASC PO SCH (12:49)
--- NOTE | 2017-09-21 15:40 | Progress Note ---
Assessment and Plan /Nausea/vomiting will cont PPI and carafate for possible PUD if no improvement then consider consulting GI for possible EGD /hyperkalemia likely from ESRD, K LEVEL 4.7 TODAY ordered kayexalate if k level >5.2 /Cardiogenic shock, improved Pt admitted to ICU, started IV pressor support with dobutamin ( off since ) Cardiology following, Pt is s/p TVP placement, s/p PPM placement 09/18/17 /HTN, uncontrolled held all BB, CCB started on hydralazine, but she was getting tachycardia cont to monitor, now on BB /Acute on chronic respiratory failure likely from cardiogenic shock, and underlying COPD CXR suggestive for pulmonary congestion she is on home O2 cont supplemental O2, duenebs /COPD cont O2 n/c. and nebulizer /CHB (complete heart block) Cardiology consulted, s/p Transcutaneous pacing, Pt taken urgently to cardiac cath rn for intervention. s/p PPM placement on 09/18/17 /ESRD has h/o renal transplant Nephrology consulted for dialysis, monitor uop q shift, dialysis per renal. 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 Camarillo presented with c/o low BP and slow HR. Per pt's sister, BP at home was reportedly found to be 60s/ 30s with HR in 20s and EMS was called. Upon EMS arrival, pt's HR was found to be in 20s and external pacing pads were applied and initiated dopamine gtt for hypotension. Pt was then taken to cardiac cath rn for emergent TVP placement. transferred out off tele on 09/20/17 after PPM placement. Radiological test: CXR - mild cardiomegaly and pulmonary venous congestion Hospitalist Physical exam: GENERAL: elderly female sitting on bed, mild distressed HEENT: Normocephalic. Atraumatic. No conjunctival congestion or icterus. Patient has very dry mucous membranes. NECK: Supple. Trachea midline. CHEST/LUNGS: few crackles auscultated bilaterally, breathing nonlabored. on n/ c. DRESSING OVER NEWLY PLACED PACEMAKER ON PLACE HEART/CARDIOVASCULAR: S1 and S2 positive. ABDOMEN: Abdomen is soft, nontender. Patient has normal bowel sounds. SKIN: There is no rash. Warm and dry. NEURO: No focal motor deficit. Follows command. MUSCULOSKELETAL: No joint effusion or tenderness. EXTRIMITY: No edema, no cyanosis or clubbing. Subjective Date of service: 09/21/17 Principal diagnosis: CHB Interval history: Pt seen and examined Pt resting in bed, c/o nausea and poor appetite. refused HD yesterday as she is not feeling well Objective - Constitutional Vitals: Vital Signs - 12hr 09/21/17 09/21/17 09/21/17 04:50 07:24 07:34 Temperature 97.8 F Pulse Rate 72 Pulse Rate [ 73 71 Anterior Bilateral Throughout] Respiratory 20 Rate Respiratory 18 18 Rate [Anterior Bilateral Throughout] Respiratory Rate [ generalized] Blood Pressure 134/82 O2 Sat by Pulse 93 96 Oximetry 09/21/17 09/21/17 09/21/17 08:53 09:48 10:00 Temperature 97.9 F Pulse Rate 74 73 Pulse Rate [ Anterior Bilateral Throughout] Respiratory 14 18 Rate Respiratory Rate [Anterior Bilateral Throughout] Respiratory 18 Rate [ generalized] Blood Pressure 161/95 161/95 O2 Sat by Pulse 96 Oximetry 09/21/17 09/21/17 09/21/17 10:27 12:40 12:49 Temperature 98.7 F Pulse Rate 67 65 Pulse Rate [ Anterior Bilateral Throughout] Respiratory 18 16 Rate Respiratory Rate [Anterior Bilateral Throughout] Respiratory Rate [ generalized] Blood Pressure 127/87 127/87 O2 Sat by Pulse 93 Oximetry 09/21/17 09/21/17 13:19 13:29 Temperature Pulse Rate Pulse Rate [ 69 74 Anterior Bilateral Throughout] Respiratory Rate Respiratory 18 18 Rate [Anterior Bilateral Throughout] Respiratory Rate [ generalized] Blood Pressure O2 Sat by Pulse Oximetry - Labs CBC & Chem 7: 09/20/17 09:11 09/21/17 08:02 Labs: Abnormal lab results 09/21/17 Range/Units 08:02 Chloride 93.9 L (98-107) mmol/L Carbon Dioxide 21 L (22-30) mmol/L BUN 72 H (7-17) mg/dL Creatinine 8.2 H (0.7-1.2) mg/dL Lipase 67 H (13-60) units/L
--- NOTE | 2017-09-21 16:32 | Progress Note ---
Assessment and Plan Assessment: Transient CHB --> s/p TVP; s/p PPM implantation PPM in situ Accelerated HTN - improved Chest pain, atypical - currently resolved; ECG with no acute ischemic changes; Torrie negative for AMI ESRD on HD - s/p kidney transplant Hyperkalemia - management per nephrology COPD on home O2 H/o subdural hemorrhage 5 years ago Severe pulmonary HTN - RVSP 82mmHg Thrombocytopenia Plan: s/p PPM implantation . pacemaker site healing well without hemaotoma.Functioning well. Cont current medical management. Currently stable cardiac status Subjective Date of service: 09/21/17 Principal diagnosis: CHB Interval history: patient comfortable,no cardiac symptoms.according to family she is much better today. Objective Vital Signs Temp Pulse Pulse Resp Resp Resp BP 09/21/17 13:29 74 18 09/21/17 13:19 69 18 09/21/17 12:49 65 127/87 09/21/17 12:40 98.7 F 67 16 127/87 09/21/17 10:27 18 09/21/17 10:00 73 18 18 09/21/17 09:48 161/95 09/21/17 08:53 97.9 F 74 14 161/95 09/21/17 07:34 71 18 09/21/17 07:24 73 18 09/21/17 04:50 97.8 F 72 20 134/82 09/21/17 00:19 98.5 F 71 20 125/79 09/20/17 22:00 76 09/20/17 21:38 76 150/85 09/20/17 20:51 09/20/17 20:38 99.1 F 76 18 150/85 09/20/17 20:00 18 18 09/20/17 17:10 97.2 F L 77 18 09/20/17 16:51 97.2 F L 78 18 128/75 BP Pulse Ox 09/21/17 13:29 09/21/17 13:19 09/21/17 12:49 09/21/17 12:40 93 09/21/17 10:27 09/21/17 10:00 09/21/17 09:48 09/21/17 08:53 96 09/21/17 07:34 09/21/17 07:24 96 09/21/17 04:50 93 09/21/17 00:19 90 09/20/17 22:00 09/20/17 21:38 09/20/17 20:51 95 09/20/17 20:38 94 09/20/17 20:00 09/20/17 17:10 128/75 98 09/20/17 16:51 100 - Physical Examination General: No Apparent Distress HEENT: Positive: PERRL, Normocephaly, Mucus Membranes Moist Neck: Positive: neck supple, trachea midline Cardiac: Positive: Reg Rate and Rhythm Lungs: Positive: clear to auscultation Neuro: Positive: Grossly Intact Abdomen: Positive: Soft. Negative: Tender Skin: Positive: Clear. Negative: Rash, Wound Incision: Incision Site (pacemaker site appears unremarkable.) Musculoskeletal: No Fluid Collection, No Pain, Normal Range of Motion Extremities: Absent: edema - Labs and Meds Comprehensive Metabolic Panel 09/21/17 Range/Units 08:02 Sodium 139 (137-145) mmol/L Potassium 4.7 D (3.6-5.0) mmol/L Chloride 93.9 L (98-107) mmol/L Carbon Dioxide 21 L (22-30) mmol/L BUN 72 H (7-17) mg/dL Creatinine 8.2 H (0.7-1.2) mg/dL Glucose 82 (65-100) mg/dL Calcium 9.4 (8.4-10.2) mg/dL - Imaging and Cardiology EKG: report reviewed, image reviewed Echo: report reviewed (03/2016: EF 55-60%, trace MR, mild TR, mild LVH, impaired relaxation. ) AV and intraventricular conduction: complete (3) AV block - Allied health notes Allied health notes reviewed: nursing
--- NOTE | 2017-09-21 22:24 | Progress Note ---
Assessment and Plan Patient alert,awake. Resting on 3 litres O2. O2 saturation 95%. Patient admitted for complete heart block. Patient has pace maker implantation. - Patient Problems (1) Pulmonary hypertension Current Visit: Yes Status: Acute Plan to address problem: Recommend to place her on medications she taking at home for pulmonary hypertension. Continue O2 supplementation. (2) CHB (complete heart block) Current Visit: Yes Status: Acute Plan to address problem: Patient has pacemaker implantation. (3) Chronic respiratory failure with hypoxia Current Visit: Yes Status: Acute Plan to address problem: O2 supplementation 3 litres via nasal canula. Albuterol/atrovent aerosol treatments q 6 hours. (4) ESRD (end stage renal disease) Current Visit: Yes Status: Acute Plan to address problem: Management as per nephrology. (5) Hypertension Current Visit: Yes Status: Acute Plan to address problem: Management as per primary care. Subjective Date of service: 09/21/17 Principal diagnosis: Complete Heart Block; Symptomatic Bradycardia; Hypoxemic Resp Failure Interval history: Patient alert,awake. Resting on 3 litres O2. O2 saturation 95%. Patient admitted for complete heart block. Patient has pace maker implantation. Objective Vital Signs - 12hr 09/21/17 09/21/17 09/21/17 10:27 12:40 12:49 Temperature 98.7 F Pulse Rate 67 65 Pulse Rate [ Anterior Bilateral Throughout] Respiratory 18 16 Rate Respiratory Rate [Anterior Bilateral Throughout] Respiratory Rate [ generalized] Blood Pressure 127/87 127/87 O2 Sat by Pulse 93 Oximetry 09/21/17 09/21/17 09/21/17 13:19 13:29 17:34 Temperature 97.6 F Pulse Rate 72 Pulse Rate [ 69 74 Anterior Bilateral Throughout] Respiratory 16 Rate Respiratory 18 18 Rate [Anterior Bilateral Throughout] Respiratory Rate [ generalized] Blood Pressure 161/99 O2 Sat by Pulse 93 Oximetry 09/21/17 09/21/17 19:25 19:54 Temperature 98.3 F Pulse Rate 72 64 Pulse Rate [ Anterior Bilateral Throughout] Respiratory 18 Rate Respiratory Rate [Anterior Bilateral Throughout] Respiratory 18 Rate [ generalized] Blood Pressure 176/84 O2 Sat by Pulse 95 Oximetry Constitutional: no acute distress, alert Eyes: non-icteric ENT: oropharynx moist Neck: supple, no lymphadenopathy, no JVD, other (No thyromegaly) Effort: normal Ascultation: Bilateral: diminished breath sounds Percussion: Bilateral: not dull Cardiovascular: other (S1,S2 no murmurs, active precordium) Gastrointestinal: normoactive bowel sounds, soft, non-tender, non-distended Integumentary: normal, other (right forearm AV-graft) Extremities: no cyanosis, no edema, pulses normal, no ischemia or petechiae, other (right femoral transvenous pacemaker) Neurologic: normal mental status, non-focal exam, pupils equal and round Psychiatric: mood appropriate, affect normal CBC and BMP: 09/20/17 09:11 09/21/17 08:02 ABG, PT/INR, D-dimer: ABG POC ABG pH 7.361 (7.35-7.45) 09/15/17 22:00 POC ABG pCO2 40.1 (35-45) 09/15/17 22:00 POC ABG pO2 56 (80-105) L 09/15/17 22:00 POC ABG HCO3 22.7 09/15/17 22:00 POC ABG Total CO2 24 09/15/17 22:00 POC ABG O2 Sat 88 09/15/17 22:00 PT/INR, D-dimer PT 14.5 Sec. (12.2-14.9) 09/18/17 04:15 INR 1.07 (0.87-1.13) 09/18/17 04:15 Abnormal lab findings: Abnormal Labs 09/15/17 09/15/17 09/15/17 13:44 13:44 13:44 RDW 16.8 H Plt Count 86 L Lymph % (Auto) [place] % (Auto) Lymph # 0.9 L Seg Neutrophils % 72.2 H Seg Neutrophils # PT 16.3 H INR 1.24 H APTT 37.3 H POC ABG pO2 Potassium Chloride 107.2 H Carbon Dioxide 19 L BUN 58 H Creatinine 9.6 H Glucose 173 H POC Glucose Phosphorus Magnesium 2.40 H Total Protein 5.3 L Albumin 3.3 L Lipase 09/15/17 09/16/17 09/16/17 22:00 04:04 07:35 RDW Plt Count Lymph % (Auto) [place] % (Auto) Lymph # Seg Neutrophils % Seg Neutrophils # PT INR APTT POC ABG pO2 56 L Potassium Chloride Carbon Dioxide 20 L BUN 65 H Creatinine 10.5 H Glucose POC Glucose 62 L Phosphorus Magnesium 2.50 H Total Protein Albumin Lipase 09/16/17 09/16/17 09/17/17 08:44 23:31 01:13 RDW Plt Count Lymph % (Auto) [place] % (Auto) Lymph # Seg Neutrophils % Seg Neutrophils # PT INR APTT POC ABG pO2 Potassium Chloride Carbon Dioxide BUN Creatinine Glucose POC Glucose 143 H 66 L 118 H Phosphorus Magnesium Total Protein Albumin Lipase 09/17/17 09/17/17 09/17/17 05:46 11:13 11:13 RDW 15.9 H Plt Count 72 L Lymph % (Auto) [place] % (Auto) Lymph # Seg Neutrophils % Seg Neutrophils # PT INR APTT POC ABG pO2 Potassium 5.2 H Chloride Carbon Dioxide 21 L BUN 49 H Creatinine 10.1 H Glucose POC Glucose 67 L Phosphorus Magnesium Total Protein Albumin Lipase 09/17/17 09/18/17 09/18/17 17:36 04:15 04:15 RDW 16.3 H Plt Count 71 L Lymph % (Auto) [place] % (Auto) 11.1 H Lymph # 1.0 L Seg Neutrophils % 70.3 H Seg Neutrophils # PT INR APTT POC ABG pO2 Potassium 5.3 H Chloride 95.3 L Carbon Dioxide BUN 28 H Creatinine 6.3 H Glucose 123 H POC Glucose 118 H Phosphorus Magnesium Total Protein Albumin Lipase 09/18/17 09/19/17 09/20/17 05:14 11:23 09:11 RDW 15.8 H Plt Count 46 L Lymph % (Auto) 6.9 L [place] % (Auto) Lymph # 0.7 L Seg Neutrophils % 86.3 H Seg Neutrophils # 9.4 H PT INR APTT POC ABG pO2 Potassium Chloride Carbon Dioxide BUN Creatinine Glucose POC Glucose 116 H 121 H Phosphorus Magnesium Total Protein Albumin Lipase 09/20/17 09/21/17 09:11 08:02 RDW Plt Count Lymph % (Auto) [place] % (Auto) Lymph # Seg Neutrophils % Seg Neutrophils # PT INR APTT POC ABG pO2 Potassium 5.9 H D Chloride 95.2 L 93.9 L Carbon Dioxide 18 L 21 L BUN 52 H 72 H Creatinine 6.6 H 8.2 H Glucose 112 H POC Glucose Phosphorus 8.10 H Magnesium Total Protein Albumin Lipase 67 H Allied health notes reviewed: nursing
[2017-09-22] MEDS: DUONEB *Not for PRN Use IH SCH ×5 (02:29→20:38)
[2017-09-22 07:15] LABS: Hematocrit 35.4 % (30.3-42.9); Hemoglobin 11.5 gm/dl (10.1-14.3); Mean Corpuscular HGB Conc 33 % (30-34); Mean Corpuscular Hemoglobin 30 pg (28-32); Mean Corpuscular Volume 91 fl (79-97); Red Blood Count 3.88 M/mm3 (3.65-5.03); Red Cell Distribution Width 15.6 % (13.2-15.2)
[2017-09-22 07:16] LABS: Calcium 9.7 mg/dL (8.4-10.2)
[2017-09-22 07:25] LABS: Platelet Count 52 K/mm3 (140-440)
[2017-09-22] MEDS: CARAFATE PO SCH ×3 (07:30→17:48)
[2017-09-22] MEDS ORDERED: PROVENTIL IH PRN (08:00)
--- NOTE | 2017-09-22 09:29 | Progress Note ---
Assessment and Plan - Patient Problems (1) ESRD (end stage renal disease) Current Visit: Yes Status: Acute Plan to address problem: HD today with no Heparin. Renal diet, fluid restriction. Adjust meds per renal function (2) CHB (complete heart block) Current Visit: Yes Status: Acute Plan to address problem: cardiology notes reviewed (3) Cardiogenic shock Current Visit: Yes Status: Acute (4) Hypertension Current Visit: Yes Status: Acute (5) Thrombocytopenia Current Visit: Yes Status: Acute Subjective Date of service: 09/22/17 Principal diagnosis: CHB Interval history: alert, oriented, feels weak. Denies SOB or CP Objective - Vital Signs Vital signs: Vital Signs - 12hr 09/21/17 09/21/17 09/21/17 23:25 23:35 23:56 Temperature 98.7 F Pulse Rate 69 Pulse Rate [ Anterior Bilateral Throughout] Respiratory 20 18 20 Rate Respiratory Rate [Anterior Bilateral Throughout] Blood Pressure 166/81 Blood Pressure [Left] O2 Sat by Pulse 90 Oximetry 09/22/17 09/22/17 09/22/17 04:17 07:23 07:24 Temperature 98.4 F Pulse Rate 67 Pulse Rate [ 64 Anterior Bilateral Throughout] Respiratory 18 Rate Respiratory 16 Rate [Anterior Bilateral Throughout] Blood Pressure 143/77 Blood Pressure [Left] O2 Sat by Pulse 91 97 Oximetry 09/22/17 09/22/17 09/22/17 07:26 07:33 08:24 Temperature 97.8 F Pulse Rate 67 Pulse Rate [ 65 Anterior Bilateral Throughout] Respiratory 18 Rate Respiratory 16 Rate [Anterior Bilateral Throughout] Blood Pressure Blood Pressure 177/99 [Left] O2 Sat by Pulse 97 97 Oximetry - General Appearance General appearance: well-developed EENT: mucous membranes moist Neck: no JVD Respiratory: Present: Decreased Breath Sounds Cardiology: regular Gastrointestinal: normoactive bowel sounds Musculoskeletal: other (no edema, right forearm AV access has bruit and thrill) Psychiatric: mood/affect appropriate - Lab 09/22/17 06:37 09/22/17 06:37 Most recent lab results Calcium 9.7 mg/dL (8.4-10.2) 09/22/17 06:37 Phosphorus 8.10 mg/dL (2.5-4.5) H 09/20/17 09:11 Magnesium 2.50 mg/dL (1.7-2.3) H 09/16/17 04:04
[2017-09-22] MEDS: PROTONIX IV SCH (10:04)
[2017-09-22] MEDS ORDERED: VERSED ONE (11:07)
[2017-09-22] MEDS ORDERED: NACL 0.9% 100 ML ONE (11:07)
[2017-09-22] MEDS ORDERED: ANCEF/STERILE WATER 2 GM/20 ML 2 GM/20 ML SYRINGE IV ONE (11:08)
[2017-09-22] MEDS ORDERED: XYLOCAINE 2% INFILTRATI ONE (11:08)
[2017-09-22] MEDS ORDERED: ANGIOMAX IV ONE (11:08)
[2017-09-22] MEDS ORDERED: NACL 0.9% 500 ML 1,500 ML ONE (11:08)
--- NOTE | 2017-09-22 11:08 | Consultation ---
History of Present Illness - Reason for Consult Consult date: 09/22/17 - History of Present Illness Patient with a history of end-stage renal disease on hemodialysis through a right Cynthia fistula. Patient is moderately noncompliant. She has been experiencing reduced clearances during dialysis. No complaints of pain at time of examination. Past History Past Medical History: COPD, dialysis, ESRD, hypertension, stroke Past Surgical History: Other (s/p kidney transplant) Social history: denies: smoking, alcohol abuse, prescription drug abuse Family history: hypertension Medications and Allergies Allergies Allergy/AdvReac Type Severity Reaction Status Date / Time heparin Allergy Intermediate Itching Verified 02/22/16 09:32 lisinopril AdvReac Mild COUGH Verified 02/22/16 09:32 Home Medications Medication Instructions Recorded Confirmed Last Taken Type ALBUTEROL NEB's [Proventil 0.083% 2.5 mg IH TID PRN 02/08/16 09/15/17 09/14/17 History NEBS] 2.5mg Carvedilol [Coreg] 25 mg PO BID 02/08/16 09/15/17 09/14/17 History 25mg Fluticasone [Flonase] 1 spray NS QDAY 02/08/16 09/15/17 09/14/17 History 1 Ipratropium [Atrovent NEB] 0.5 mg IH Q6HRT 02/08/16 09/15/17 09/14/17 History 1 Pantoprazole [Protonix TAB] 40 mg PO QDAY 02/08/16 09/15/17 09/14/17 History 40mg Tadalafil (Nf) [Adcirca (Nf)] 20 mg PO QDAY 02/08/16 09/15/17 09/14/17 History 20mg Cinacalcet [Sensipar] 30 mg PO DAILY 02/22/16 09/15/17 09/14/17 History 30mg Gabapentin [Neurontin] 1 tab PO 3XW 02/22/16 09/15/17 09/14/17 History 1 Losartan Potassium 100 mg PO DAILY 02/22/16 09/15/17 09/14/17 History 100mg Sertraline [Zoloft] 1 tab PO DAILY 02/22/16 09/15/17 09/14/17 History 1 Sevelamer Carbonate [Renvela] 4 tab PO TID 02/22/16 09/15/17 09/14/17 History 4 Sodium Bicarbonate 1 tab PO DAILY 02/22/16 09/15/17 09/14/17 History 1 Zolpidem Tartrate 10 mg PO QHS 02/22/16 09/15/17 09/14/17 History 10mg Diltiazem Xt [Taztia Xt] 180 mg PO DAILY 09/15/17 09/15/17 09/14/17 History 180mg Omeprazole [Omeprazole] 20 mg PO DAILY 09/15/17 09/15/17 09/14/17 History 20mg cloNIDine [Catapres] 0.2 mg PO TID 09/15/17 09/15/17 09/14/17 History 0.2mg Active Meds: Active Medications Al Hydrox/Mg Hydrox/Simethicone (Alum-Mag Hydrox-Simeth 327-967-79ts/5ml) 30 ml PO Q4H PRN PRN Reason: Indigestion Albuterol (Proventil) 2.5 mg IH Q4HRT PRN PRN Reason: Shortness Of Breath Albuterol/Ipratropium (Duoneb *Not For Prn Use*) 1 ampul IH TIDRT CATHY Amlodipine Besylate (Norvasc) 10 mg PO QDAY CATHY Last Admin: 09/21/17 12:49 Dose: 10 mg Bisacodyl (Dulcolax) 10 mg MO QDAY PRN PRN Reason: constipation unrelieved by MOM Last Admin: 09/19/17 00:22 Dose: 10 mg Dextrose (D50w (25gm) Syringe) 50 ml IV PRN PRN PRN Reason: Hypoglycemia Hydralazine HCl (Apresoline) 10 mg IV Q6HR PRN PRN Reason: Systolic B/p greather than 160 Last Admin: 09/19/17 18:00 Dose: 10 mg Hydrophilic Ointment (Vaseline Lip Therapy) 1 applic TP DIRECT PRN PRN Reason: DRY LIPS Sodium Chloride (Nacl 0.9%) 100 mls @ 999 mls/hr IV NANNETTE PRN PRN Reason: Hypotension Sodium Chloride (Nacl 0.9%) 100 mls @ 999 mls/hr IV NANNETTE PRN PRN Reason: Hypotension Magnesium Hydroxide (Milk Of Magnesia) 30 ml PO Q4H PRN PRN Reason: Constipation Last Admin: 09/19/17 01:01 Dose: 30 ml Metoprolol Tartrate (Lopressor) 50 mg PO BID [facility] Last Admin: 09/21/17 21:48 Dose: 50 mg Ondansetron HCl (Zofran) 4 mg IV Q4H PRN PRN Reason: Nausea And Vomiting Last Admin: 09/20/17 21:33 Dose: 4 mg Oxycodone/Acetaminophen (Percocet 5/325) 1 tab PO Q6H PRN PRN Reason: Pain Last Admin: 09/21/17 23:35 Dose: 1 tab Pantoprazole Sodium (Protonix) 40 mg IV BID [facility] Last Admin: 09/22/17 10:04 Dose: 40 mg Sodium Polystyrene Sulfonate (Kionex) 15 gm PO Q6HR PRN PRN Reason: Hyperkalemia Sucralfate (Carafate) 1 gm PO ACHS [facility] Last Admin: 09/22/17 07:30 Dose: Not Given Review of Systems All systems: negative Exam - Constitutional Vitals: Temp Pulse Resp BP Pulse Ox 97.8 F 67 18 177/99 97 09/22/17 08:24 09/22/17 08:24 09/22/17 08:24 09/22/17 08:24 09/22/17 08:24 General appearance: Present: no acute distress - EENT Eyes: Present: PERRL ENT: hearing intact - Neck Neck: Present: supple, normal ROM - Respiratory Respiratory effort: normal - Extremities Extremities: no ischemia, abnormal (Right radial cephalic fistula) - Abdominal General gastrointestinal: Present: deferred - Rectal Rectal Exam: deferred - Integumentary Integumentary: Present: clear - Psychiatric Psychiatric: cooperative Results - Labs CBC & Chem 7: 09/22/17 06:37 09/22/17 06:37 Labs: Abnormal lab results 09/22/17 09/22/17 Range/Units 06:37 06:37 RDW 15.6 H (13.2-15.2) % Plt Count 52 L (140-440) K/mm3 Chloride 94.4 L (98-107) mmol/L BUN 95 H (7-17) mg/dL Creatinine 10.2 H (0.7-1.2) mg/dL Glucose 104 H (65-100) mg/dL Assessment and Plan Patient will be scheduled for a right arm fistulogram
[2017-09-22] MEDS ORDERED: WATER FOR INJ (PF) 10 ML ONE (11:09)
[2017-09-22] MEDS ORDERED: SUBLIMAZE ONE (11:09)
--- NOTE | 2017-09-22 11:55 | Operative Report ---
Operative Report Operative Report: EXAM: RIGHT UPPER EXTREMITY FISTULOGRAM WITH VENOPLASTY CLINICAL INDICATION: PATIENT WITH A HISTORY OF A RIGHT ROMARIO FISTULA WITH DECREASED CLEARANCE DATE: 09/22/2017 PROCEDURE: Following an explanation of the risks, benefits and alternatives; written informed consent was obtained. The patient was brought to the angiographic suite and placed in supine position on the examination table. Evaluation of the fistula demonstrated thrill at the arterial anastomosis with some pulsatility distally. The patient's right arm was prepped and draped in the usual sterile fashion. 1% lidocaine was used for anesthesia. A 7 cm 21-gauge needle was advanced into the fistula just distal to the arterial anastomosis. A 0.018 guidewire was advanced centrally. The needle was removed and a micro-sheath placed. The 0.018 guidewire was exchanged for a 0.035 guidewire and the micro-sheath exchanged for a 6 Faroese vascular sheath. Contrast was injected through the sheath. This demonstrates 2 areas of approximately 40-50% stenosis at the cannulation sites. Venoplasty of the cannulation sites in the proximal and mid cephalic vein in the forearm were then performed using a 7 mm x 40 mm balloon insufflated to 6 ilir for 30 seconds of both locations. Post venoplasty imaging demonstrated less than 10% stenoses at these areas residually with a more palpable thrill throughout the course of the fistula. At this point, the catheters, guidewires and she's were removed and hemostasis achieved using 4-0 Vicryl suture and Dermabond. A sterile dressing was then applied. The patient tolerated the procedure well. There were no immediate post procedure complications. Conscious sedation was performed under the guidance of radiologic nursing. Continuous cardiopulmonary monitoring was utilized. IMPRESSION: 1) Right upper extremity fistulogram demonstrating 4050% stenoses at the cannulation sites in proximall and mid cephalic vein. 2) Venoplasty of the stenoses described with residual less than 10% stenosis
--- NOTE | 2017-09-22 13:23 | Progress Note ---
Assessment and Plan Assessment: Transient CHB --> s/p TVP; s/p PPM implantation PPM in situ Accelerated HTN - improved Chest pain, atypical - currently resolved; ECG with no acute ischemic changes; Torrie negative for AMI ESRD on HD - s/p kidney transplant Hyperkalemia - management per nephrology COPD on home O2 H/o subdural hemorrhage 5 years ago Severe pulmonary HTN - RVSP 82mmHg Thrombocytopenia Plan: Currently stable cardiac status. Pt may discharge home from cardiology standpoint. Follow up in our [place] device clinic on 09/26/2017 @ 9:00AM. Follow up in our [place] office with Dr. Camarillo on 10/09/2016 @ 11:30AM. The patient has been seen in conjunction with Dr. Lyndsey Batista who agrees with the assessment and plan of care. Subjective Date of service: 09/22/17 Principal diagnosis: CHB Interval history: Pt resting in bed, NAD. s/p RUE fistulogram with venoplasty this AM. Objective Last Vital Signs Temp 98.1 F 09/22/17 12:15 Pulse 68 09/22/17 12:15 Resp 18 09/22/17 12:15 BP 166/96 09/22/17 12:15 Pulse Ox 93 09/22/17 12:15 - Physical Examination General: No Apparent Distress HEENT: Positive: PERRL, Normocephaly, Mucus Membranes Moist Neck: Positive: neck supple, trachea midline Cardiac: Positive: Reg Rate and Rhythm, S1/S2 Lungs: Positive: clear to auscultation Neuro: Positive: Grossly Intact Abdomen: Positive: Soft. Negative: Tender Skin: Positive: Clear. Negative: Rash, Wound Incision: Incision Site (pacemaker site appears unremarkable.) Musculoskeletal: No Fluid Collection, No Pain, Normal Range of Motion Extremities: Absent: edema - Labs and Meds CBC 09/22/17 Range/Units 06:37 WBC 9.6 (4.5-11.0) K/mm3 RBC 3.88 (3.65-5.03) M/mm3 Hgb 11.5 (10.1-14.3) gm/dl Hct 35.4 (30.3-42.9) % Plt Count 52 L (140-440) K/mm3 Comprehensive Metabolic Panel 09/22/17 Range/Units 06:37 Sodium 142 (137-145) mmol/L Potassium 4.4 (3.6-5.0) mmol/L Chloride 94.4 L (98-107) mmol/L Carbon Dioxide 23 (22-30) mmol/L BUN 95 H (7-17) mg/dL Creatinine 10.2 H (0.7-1.2) mg/dL Glucose 104 H (65-100) mg/dL Calcium 9.7 (8.4-10.2) mg/dL - Imaging and Cardiology EKG: report reviewed, image reviewed Echo: report reviewed (03/2016: EF 55-60%, trace MR, mild TR, mild LVH, impaired relaxation. ) AV and intraventricular conduction: complete (3) AV block - Allied health notes Allied health notes reviewed: nursing
[2017-09-22] MEDS: LOPRESSOR PO SCH ×2 (17:02→20:16)
--- NOTE | 2017-09-22 18:42 | Progress Note ---
Assessment and Plan - Cardiogenic shock, improved Cardiology following, Pt is s/p TVP placement, s/p PPM placement 09/18/17 - Nausea/vomiting will cont PPI and carafate for possible PUD, Zofran if no improvement then consider consulting GI for possible EGD - hyperkalemia likely from ESRD, K LEVEL 4.7 TODAY ordered kayexalate if k level >5.2 - HTN, uncontrolled held all BB, CCB started on hydralazine, but she was getting tachycardia cont to monitor, now on BB - Acute on chronic respiratory failure likely from cardiogenic shock, and underlying COPD CXR suggestive for pulmonary congestion she is on home O2 cont supplemental O2, duenebs - COPD cont O2 n/c. and nebulizer - CHB (complete heart block) Cardiology consulted, s/p Transcutaneous pacing, Pt taken urgently to dental lab technician for intervention. s/p PPM placement on 09/18/17 - ESRD has h/o renal transplant Nephrology consulted for dialysis, monitor uop q shift, dialysis per renal. 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 now closely monitor with frequent neuro assessment - Encephalopathy, resolved likely Metabolic encephalopathy: appears more alert and awake today - dialysis as per renal team, supportive care, treat underlying cause RUE Fistulogram done today 09/22/17 - DVT prophylaxis lovenox Subjective Date of service: 09/22/17 Interval history: Complete heart block, Chest pain, ESRD Objective - Constitutional Vitals: Vital Signs - 12hr 09/22/17 09/22/17 09/22/17 07:23 07:24 07:26 Temperature Pulse Rate Pulse Rate [ 64 Anterior Bilateral Throughout] Respiratory Rate Respiratory 16 Rate [Anterior Bilateral Throughout] Blood Pressure Blood Pressure [Left] O2 Sat by Pulse 97 97 Oximetry 09/22/17 09/22/17 09/22/17 07:33 08:24 10:00 Temperature 97.8 F Pulse Rate 67 72 Pulse Rate [ 65 Anterior Bilateral Throughout] Respiratory 18 18 Rate Respiratory 16 Rate [Anterior Bilateral Throughout] Blood Pressure Blood Pressure 177/99 [Left] O2 Sat by Pulse 97 Oximetry 09/22/17 09/22/17 09/22/17 12:15 13:39 13:46 Temperature 98.1 F Pulse Rate 68 Pulse Rate [ 67 68 Anterior Bilateral Throughout] Respiratory 18 Rate Respiratory 16 16 Rate [Anterior Bilateral Throughout] Blood Pressure 166/96 Blood Pressure [Left] O2 Sat by Pulse 93 Oximetry 09/22/17 16:34 Temperature 98.0 F Pulse Rate 69 Pulse Rate [ Anterior Bilateral Throughout] Respiratory 16 Rate Respiratory Rate [Anterior Bilateral Throughout] Blood Pressure Blood Pressure 173/92 [Left] O2 Sat by Pulse 93 Oximetry General appearance: Present: no acute distress, well-nourished - EENT Eyes: PERRL, EOM intact - Neck Neck: supple, normal ROM - Respiratory Respiratory: bilateral: CTA - Cardiovascular Rhythm: regular Heart Sounds: Present: S1 & S2. Absent: gallop, rub Extremities: pulses intact, No edema, normal color, Full ROM - Gastrointestinal General gastrointestinal: Present: soft, non-tender, non-distended, normal bowel sounds - Integumentary Integumentary: clear, warm, dry - Musculoskeletal Musculoskeletal: 1, strength equal bilaterally - Neurologic Neurologic: moves all extremities - Psychiatric Psychiatric: appropriate mood/affect, intact judgment & insight, memory intact - Labs CBC & Chem 7: 09/22/17 06:37 09/22/17 06:37 Labs: Abnormal lab results 09/22/17 09/22/17 Range/Units 06:37 06:37 RDW 15.6 H (13.2-15.2) % Plt Count 52 L (140-440) K/mm3 Chloride 94.4 L (98-107) mmol/L BUN 95 H (7-17) mg/dL Creatinine 10.2 H (0.7-1.2) mg/dL Glucose 104 H (65-100) mg/dL
--- NOTE | 2017-09-22 19:06 | Progress Note ---
Assessment and Plan Patient alert,awake. Resting on 3 litres O2. O2 saturation 94%. Patient admitted for complete heart block. Patient has pace maker implantation. Patient receiving hemodialysis at this time. - Patient Problems (1) Pulmonary hypertension Current Visit: Yes Status: Acute Plan to address problem: Recommend to place her on medications she taking at home for pulmonary hypertension. Continue O2 supplementation. (2) CHB (complete heart block) Current Visit: Yes Status: Acute Plan to address problem: Patient has pacemaker implantation. (3) Chronic respiratory failure with hypoxia Current Visit: Yes Status: Acute Plan to address problem: O2 supplementation 3 litres via nasal canula. Albuterol/atrovent aerosol treatments q 6 hours. (4) ESRD (end stage renal disease) Current Visit: Yes Status: Acute Plan to address problem: Management as per nephrology. (5) Hypertension Current Visit: Yes Status: Acute Plan to address problem: Management as per primary care. Subjective Date of service: 09/22/17 Principal diagnosis: CHB Interval history: Patient alert,awake. Resting on 3 litres O2. O2 saturation 94%. Patient admitted for complete heart block. Patient has pace maker implantation. Patient receiving hemodialysis at this time. Objective Vital Signs - 12hr 09/22/17 09/22/17 09/22/17 07:23 07:24 07:26 Temperature Pulse Rate Pulse Rate [ 64 Anterior Bilateral Throughout] Respiratory Rate Respiratory 16 Rate [Anterior Bilateral Throughout] Blood Pressure Blood Pressure [Left] O2 Sat by Pulse 97 97 Oximetry 09/22/17 09/22/17 09/22/17 07:33 08:24 10:00 Temperature 97.8 F Pulse Rate 67 72 Pulse Rate [ 65 Anterior Bilateral Throughout] Respiratory 18 18 Rate Respiratory 16 Rate [Anterior Bilateral Throughout] Blood Pressure Blood Pressure 177/99 [Left] O2 Sat by Pulse 97 Oximetry 09/22/17 09/22/17 09/22/17 12:15 13:39 13:46 Temperature 98.1 F Pulse Rate 68 Pulse Rate [ 67 68 Anterior Bilateral Throughout] Respiratory 18 Rate Respiratory 16 16 Rate [Anterior Bilateral Throughout] Blood Pressure 166/96 Blood Pressure [Left] O2 Sat by Pulse 93 Oximetry 09/22/17 16:34 Temperature 98.0 F Pulse Rate 69 Pulse Rate [ Anterior Bilateral Throughout] Respiratory 16 Rate Respiratory Rate [Anterior Bilateral Throughout] Blood Pressure Blood Pressure 173/92 [Left] O2 Sat by Pulse 93 Oximetry Constitutional: no acute distress, alert Eyes: non-icteric ENT: oropharynx moist Neck: supple, no lymphadenopathy, no JVD, other (No thyromegaly) Effort: normal Ascultation: Bilateral: diminished breath sounds Percussion: Bilateral: not dull Cardiovascular: other (S1,S2 no murmurs, active precordium) Gastrointestinal: normoactive bowel sounds, soft, non-tender, non-distended Integumentary: normal, other (right forearm AV-graft) Extremities: no cyanosis, no edema, pulses normal, no ischemia or petechiae, other (right femoral transvenous pacemaker) Neurologic: normal mental status, non-focal exam, pupils equal and round Psychiatric: mood appropriate, affect normal CBC and BMP: 09/22/17 06:37 09/22/17 06:37 ABG, PT/INR, D-dimer: ABG POC ABG pH 7.361 (7.35-7.45) 09/15/17 22:00 POC ABG pCO2 40.1 (35-45) 09/15/17 22:00 POC ABG pO2 56 (80-105) L 09/15/17 22:00 POC ABG HCO3 22.7 09/15/17 22:00 POC ABG Total CO2 24 09/15/17 22:00 POC ABG O2 Sat 88 09/15/17 22:00 PT/INR, D-dimer PT 14.5 Sec. (12.2-14.9) 09/18/17 04:15 INR 1.07 (0.87-1.13) 09/18/17 04:15 Abnormal lab findings: Abnormal Labs 09/15/17 09/15/17 09/15/17 13:44 13:44 13:44 RDW 16.8 H Plt Count 86 L Lymph % (Auto) Rush % (Auto) Lymph # 0.9 L Seg Neutrophils % 72.2 H Seg Neutrophils # PT 16.3 H INR 1.24 H APTT 37.3 H POC ABG pO2 Potassium Chloride 107.2 H Carbon Dioxide 19 L BUN 58 H Creatinine 9.6 H Glucose 173 H POC Glucose Phosphorus Magnesium 2.40 H Total Protein 5.3 L Albumin 3.3 L Lipase 09/15/17 09/16/17 09/16/17 22:00 04:04 07:35 RDW Plt Count Lymph % (Auto) Rush % (Auto) Lymph # Seg Neutrophils % Seg Neutrophils # PT INR APTT POC ABG pO2 56 L Potassium Chloride Carbon Dioxide 20 L BUN 65 H Creatinine 10.5 H Glucose POC Glucose 62 L Phosphorus Magnesium 2.50 H Total Protein Albumin Lipase 09/16/17 09/16/17 09/17/17 08:44 23:31 01:13 RDW Plt Count Lymph % (Auto) Rush % (Auto) Lymph # Seg Neutrophils % Seg Neutrophils # PT INR APTT POC ABG pO2 Potassium Chloride Carbon Dioxide BUN Creatinine Glucose POC Glucose 143 H 66 L 118 H Phosphorus Magnesium Total Protein Albumin Lipase 09/17/17 09/17/17 09/17/17 05:46 11:13 11:13 RDW 15.9 H Plt Count 72 L Lymph % (Auto) Rush % (Auto) Lymph # Seg Neutrophils % Seg Neutrophils # PT INR APTT POC ABG pO2 Potassium 5.2 H Chloride Carbon Dioxide 21 L BUN 49 H Creatinine 10.1 H Glucose POC Glucose 67 L Phosphorus Magnesium Total Protein Albumin Lipase 09/17/17 09/18/17 09/18/17 17:36 04:15 04:15 RDW 16.3 H Plt Count 71 L Lymph % (Auto) Rush % (Auto) 11.1 H Lymph # 1.0 L Seg Neutrophils % 70.3 H Seg Neutrophils # PT INR APTT POC ABG pO2 Potassium 5.3 H Chloride 95.3 L Carbon Dioxide BUN 28 H Creatinine 6.3 H Glucose 123 H POC Glucose 118 H Phosphorus Magnesium Total Protein Albumin Lipase 09/18/17 09/19/17 09/20/17 05:14 11:23 09:11 RDW 15.8 H Plt Count 46 L Lymph % (Auto) 6.9 L Rush % (Auto) Lymph # 0.7 L Seg Neutrophils % 86.3 H Seg Neutrophils # 9.4 H PT INR APTT POC ABG pO2 Potassium Chloride Carbon Dioxide BUN Creatinine Glucose POC Glucose 116 H 121 H Phosphorus Magnesium Total Protein Albumin Lipase 09/20/17 09/21/17 09/22/17 09:11 08:02 06:37 RDW 15.6 H Plt Count 52 L Lymph % (Auto) Rush % (Auto) Lymph # Seg Neutrophils % Seg Neutrophils # PT INR APTT POC ABG pO2 Potassium 5.9 H D Chloride 95.2 L 93.9 L Carbon Dioxide 18 L 21 L BUN 52 H 72 H Creatinine 6.6 H 8.2 H Glucose 112 H POC Glucose Phosphorus 8.10 H Magnesium Total Protein Albumin Lipase 67 H 09/22/17 06:37 RDW Plt Count Lymph % (Auto) Rush % (Auto) Lymph # Seg Neutrophils % Seg Neutrophils # PT INR APTT POC ABG pO2 Potassium Chloride 94.4 L Carbon Dioxide BUN 95 H Creatinine 10.2 H Glucose 104 H POC Glucose Phosphorus Magnesium Total Protein Albumin Lipase Allied health notes reviewed: nursing
[2017-09-22] MEDS: NORVASC PO SCH (20:15)
[2017-09-22] MEDS: PERCOCET 5/325 PO PRN (20:42)
[2017-09-23] MEDS: LOPRESSOR PO SCH ×3 (00:28→22:13)
[2017-09-23] MEDS: PROTONIX PO SCH ×3 (00:28→22:13)
[2017-09-23] MEDS: CARAFATE PO SCH ×5 (00:28→22:14)
[2017-09-23] MEDS: PERCOCET 5/325 PO PRN ×2 (02:23→17:09)
[2017-09-23] MEDS: APRESOLINE IV PRN (04:09)
[2017-09-23 06:28] LABS: Hematocrit 35.8 % (30.3-42.9); Hemoglobin 11.8 gm/dl (10.1-14.3); Mean Corpuscular HGB Conc 33 % (30-34); Mean Corpuscular Hemoglobin 30 pg (28-32); Mean Corpuscular Volume 91 fl (79-97); Red Blood Count 3.95 M/mm3 (3.65-5.03); Red Cell Distribution Width 16.1 % (13.2-15.2)
[2017-09-23 06:34] LABS: Platelet Count 53 K/mm3 (140-440)
[2017-09-23 06:50] LABS: Albumin 3.8 g/dL (3.9-5); Calcium 9.7 mg/dL (8.4-10.2); Magnesium 2.1 mg/dL (1.7-2.3)
[2017-09-23] MEDS: NORVASC PO SCH (09:10)
[2017-09-23] MEDS: DUONEB *Not for PRN Use IH SCH ×3 (10:11→20:32)
[2017-09-23 10:27] LABS: Band Neutrophils # (Manual) 0.5 K/mm3; Basophils % (Manual) 0 % (0.0-1.8); Total Cells Counted 100
--- NOTE | 2017-09-23 12:02 | Discharge Summary ---
Providers - Providers Date of Admission: 09/15/17 15:43 Attending physician: KEIRA MCNEIL MD 09/15/17 15:16 Consult to Physician [CONS] Routine Consulting Provider: MCKENNA GUDINO Reason For Exam: dialysis Place consult to:: Allyson Notified:: yes Phone number called:: [phone] Was contact made?: Yes If yes, spoke with:: Allyson Time called:: 15:15 09/15/17 20:48 Consult to Physician [CONS] Stat Consulting Provider: MAEGAN ANDERSON Reason For Exam: New admit CCU fast food shift lead, s/p TPM, cardiogenic sh Place consult to:: Answering service Notified:: Teri Phone number called:: [phone] Was contact made?: Yes If yes, spoke with:: I spoke with Dr. Hall @ 09/15/2017 2114 Time called:: 21:10 Comment:: Dr. Hall @ [phone] per answering service 09/15/17 21:14 Consult to Interventional Radiology [CONS] Urgent Consulting Provider: ABRAM KEENE Reason For Exam: IR tunnelled PICC pt. on Dopamine drip Place consult to:: Answering service Notified:: Bal answering service Phone number called:: [phone] Was contact made?: Yes If yes, spoke with:: I spoke with Dr. Ortega @ 0033 Time called:: 00:25 Comment:: Per 09/21/17 15:25 Consult to Physician [CONS] Routine Consulting Provider: NA FLYNN Reason For Exam: fistulogram Place consult to:: Dr. Flynn Notified:: Kellie RN Phone number called:: Was contact made?: Yes If yes, spoke with:: Janelle-answering service/call transferred to Dr. Rivera Time called:: 18:07 Primary care physician: LES LAWSON Hospitalization Condition: Serious Hospital course: 57 YO Female with HTN, ESRD on HD(M,W,F), COPD, Chronic Respiratory Failure on 3L Home oxygen, Diastolic CHF, Pulmonary HTN, SDH presents to ED for evaluation. Pt unable to provide history due to lethargy and confusion. Pt history taken from medical record, and ED staff. As per staff, Pt experienced pain in her chest this morning, an a subsequent blood pressure check showed a systolic BP in the 60's. EMS notified, and upon arrival the patient was found to have a heart rate in the 20/s, and was externally paced and transported to [facility] for evaluation and treatment. Pt seen and evaluated in ED and found to be in extremis. Pt subcutaneously paced at 60bpm and initiated on dopamine drip for cardiogenic shock. Pt is lethargic but is able to protect her airway. Cardiology consulted in ED and petient taken urgently to oven laborer. Pt subsequently admitted to ICU. - Cardiogenic shock, improved Cardiology following, Pt is s/p TVP placement, s/p PPM placement 09/18/17 - Nausea/vomiting will cont PPI and carafate for possible PUD, Zofran if no improvement then consider consulting GI for possible EGD - hyperkalemia likely from ESRD, K LEVEL 4.7 TODAY ordered kayexalate if k level >5.2 - HTN, uncontrolled held all BB, CCB started on hydralazine, but she was getting tachycardia cont to monitor, now on BB - Acute on chronic respiratory failure likely from cardiogenic shock, and underlying COPD CXR suggestive for pulmonary congestion she is on home O2 cont supplemental O2, duenebs - COPD cont O2 n/c. and nebulizer - CHB (complete heart block) Cardiology consulted, s/p Transcutaneous pacing, Pt taken urgently to oven laborer for intervention. s/p PPM placement on 09/18/17 - ESRD has h/o renal transplant Nephrology consulted for dialysis, monitor uop q shift, dialysis per renal. 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 now closely monitor with frequent neuro assessment - Encephalopathy, resolved likely Metabolic encephalopathy: appears more alert and awake today - dialysis as per renal team, supportive care, treat underlying cause RUE Fistulogram done today 09/22/17 - DVT prophylaxis lovenox Follow up in our [place] device clinic on 09/26/2017 @ 9:00AM. Follow up in our [place] office with Dr. Camarillo on 10/09/2016 @ 11:30AM. Disposition: DC-01 TO HOME OR SELFCARE Time spent for discharge: 33 minutes Core Measure Documentation - Palliative Care Palliative Care/ Comfort Measures: Not Applicable - Core Measures Any of the following diagnoses?: none Exam - Constitutional Vitals: Temp Pulse Resp BP Pulse Ox 98.4 F 62 16 131/75 96 09/23/17 09:02 09/23/17 10:41 09/23/17 10:00 09/23/17 09:10 09/23/17 10:00 General appearance: Present: no acute distress, well-nourished - EENT Eyes: Present: PERRL ENT: hearing intact, clear oral mucosa - Neck Neck: Present: supple, normal ROM - Respiratory Respiratory effort: normal Respiratory: bilateral: CTA - Cardiovascular Heart Sounds: Present: S1 & S2. Absent: rub, click - Extremities Extremities: pulses symmetrical, No edema Peripheral Pulses: within normal limits - Abdominal General gastrointestinal: Present: soft, non-tender, non-distended, normal bowel sounds Female genitourinary: Present: normal - Integumentary Integumentary: Present: clear, warm, dry - Musculoskeletal Musculoskeletal: gait normal, strength equal bilaterally - Psychiatric Psychiatric: appropriate mood/affect, intact judgment & insight - Neurologic Neurologic: CNII-XII intact, moves all extremities Plan
--- NOTE | 2017-09-23 15:18 | XRay Report ---
AP CHEST: HISTORY: Hemoptysis Moderate cardiomegaly and pulmonary venous congestion are stable since 09/18/17. The lungs are generally clear. There is no evidence for pneumonia, pleural effusion or pneumothorax. 2-lead pacemaker device is unchanged. No significant change since exam 5 days ago. IMPRESSION: Cardiomegaly and pulmonary venous congestion.
--- NOTE | 2017-09-23 15:30 | Progress Note ---
Assessment and Plan Assessment and plan: 57 YO Female with HTN, ESRD on HD(M,W,F), COPD, Chronic Respiratory Failure on 3L Home oxygen, Diastolic CHF, Pulmonary HTN, SDH presents to ED for evaluation. Pt unable to provide history due to lethargy and confusion. Pt history taken from medical record, and ED staff. As per staff, Pt experienced pain in her chest this morning, an a subsequent blood pressure check showed a systolic BP in the 60's. EMS notified, and upon arrival the patient was found to have a heart rate in the 20/s, and was externally paced and transported to [facility] for evaluation and treatment. Pt seen and evaluated in ED and found to be in extremis. Pt subcutaneously paced at 60bpm and initiated on dopamine drip for cardiogenic shock. Pt is lethargic but is able to protect her airway. Cardiology consulted in ED and petient taken urgently to computer lab assistant. Pt subsequently admitted to ICU. Dysphagia and vomiting with streak of blood- likely negrita bello tear Fup Hg, For MBS and swallow evaluation Metabolic encephalopathy -less responsive and sleepy since she had AV graft plasty and HD -if not improved by tomorrow, will need imaging of brain - Cardiogenic shock, improved Cardiology following, Pt is s/p TVP placement, s/p PPM placement 09/18/17 - Nausea/vomiting will cont PPI and carafate for possible PUD, Zofran if no improvement then consider consulting GI for possible EGD - hyperkalemia likely from ESRD, K LEVEL 4.7 TODAY ordered kayexalate if k level >5.2 - HTN, uncontrolled held all BB, CCB started on hydralazine, but she was getting tachycardia cont to monitor, now on BB - Acute on chronic respiratory failure likely from cardiogenic shock, and underlying COPD CXR suggestive for pulmonary congestion she is on home O2 cont supplemental O2, duenebs - COPD cont O2 n/c. and nebulizer - CHB (complete heart block) Cardiology consulted, s/p Transcutaneous pacing, Pt taken urgently to computer lab assistant for intervention. s/p PPM placement on 09/18/17 - ESRD has h/o renal transplant Nephrology consulted for dialysis, monitor uop q shift, dialysis per renal. 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 Follow up in our [place] office with Dr. Camarillo on 10/09/2016 @ 11:30AM. History Interval history: Family is complaining that she has been vomiting, they also note that she has been drowsy and confused and not quite herself Review of systems Neurological: Has been confused and drowsy Constitutional: No fevers, no malaise, no joint pains CVS: No chest pain, no orthopnea, no dyspnea on exertion, no pedal edema GI: She has had vomiting and pain associated with swallowing as per family members. Respiratory: No shortness of breath, no wheezing, no coughing Hospitalist Physical - Physical exam Narrative exam: General.: Appears well, no distress, nontoxic HEENT: Moist mucous membranes, extraocular muscles intact, no lymphadenopathy Neck: supple Cardiac: S1-S2 heard Lungs: clear to auscultation bilaterally Abdomen: soft , nontender, nondistended, bowel sounds positive Extremities: no edema clubbing or cyanosis Skin: no rash or lesions Neurologic: no gross focal deficits Psych: appropriate behavior, appropriate mood, corporative, judgment intact - Constitutional Vitals: Temp Pulse Resp BP Pulse Ox 98.4 F 66 18 152/85 96 09/23/17 12:48 09/23/17 12:49 09/23/17 12:48 09/23/17 12:49 09/23/17 12:49 General appearance: Present: no acute distress, well-nourished Results - Labs CBC & Chem 7: 09/28/17 13:17 09/26/17 05:51 Labs: Laboratory Last Values WBC 9.8 K/mm3 (4.5-11.0) 09/23/17 05:49 RBC 3.95 M/mm3 (3.65-5.03) 09/23/17 05:49 Hgb 11.8 gm/dl (10.1-14.3) 09/23/17 05:49 Hct 35.8 % (30.3-42.9) 09/23/17 05:49 MCV 91 fl (79-97) 09/23/17 05:49 MCH 30 pg (28-32) 09/23/17 05:49 MCHC 33 % (30-34) 09/23/17 05:49 RDW 16.1 % (13.2-15.2) H 09/23/17 05:49 Plt Count 53 K/mm3 (140-440) L 09/23/17 05:49 Lymph % (Auto) 6.9 % (13.4-35.0) L 09/20/17 09:11 [place] % (Auto) 6.5 % (0.0-7.3) 09/20/17 09:11 Eos % (Auto) 0.1 % (0.0-4.3) 09/20/17 09:11 Baso % (Auto) 0.2 % (0.0-1.8) 09/20/17 09:11 Lymph # 0.7 K/mm3 (1.2-5.4) L 09/20/17 09:11 [place] # 0.7 K/mm3 (0.0-0.8) 09/20/17 09:11 Eos # 0.0 K/mm3 (0.0-0.4) 09/20/17 09:11 Baso # 0.0 K/mm3 (0.0-0.1) 09/20/17 09:11 Add Manual Diff Complete 09/23/17 05:49 Total Counted 100 09/23/17 05:49 Seg Neutrophils % 86.3 % (40.0-70.0) H 09/20/17 09:11 Seg Neuts % (Manual) 81.0 % (40.0-70.0) H 09/23/17 05:49 Band Neutrophils % 5.0 % 09/23/17 05:49 Lymphocytes % (Manual) 7.0 % (13.4-35.0) L 09/23/17 05:49 Reactive Lymphs % (Man) 0 % 09/23/17 05:49 Monocytes % (Manual) 5.0 % (0.0-7.3) 09/23/17 05:49 Eosinophils % (Manual) 2.0 % (0.0-4.3) 09/23/17 05:49 Basophils % (Manual) 0 % (0.0-1.8) 09/23/17 05:49 Metamyelocytes % 0 % 09/23/17 05:49 Myelocytes % 0 % 09/23/17 05:49 Promyelocytes % 0 % 09/23/17 05:49 Blast Cells % 0 % 09/23/17 05:49 Nucleated RBC % Not Reportable 09/23/17 05:49 Seg Neutrophils # 9.4 K/mm3 (1.8-7.7) H 09/20/17 09:11 Seg Neutrophils # Man 7.9 K/mm3 (1.8-7.7) H 09/23/17 05:49 Band Neutrophils # 0.5 K/mm3 09/23/17 05:49 Lymphocytes # (Manual) 0.7 K/mm3 (1.2-5.4) L 09/23/17 05:49 Abs React Lymphs (Man) 0.0 K/mm3 09/23/17 05:49 Monocytes # (Manual) 0.5 K/mm3 (0.0-0.8) 09/23/17 05:49 Eosinophils # (Manual) 0.2 K/mm3 (0.0-0.4) 09/23/17 05:49 Basophils # (Manual) 0.0 K/mm3 (0.0-0.1) 09/23/17 05:49 Metamyelocytes # 0.0 K/mm3 09/23/17 05:49 Myelocytes # 0.0 K/mm3 09/23/17 05:49 Promyelocytes # 0.0 K/mm3 09/23/17 05:49 Blast Cells # 0.0 K/mm3 09/23/17 05:49 WBC Morphology Not Reportable 09/23/17 05:49 Hypersegmented Neuts Not Reportable 09/23/17 05:49 Hyposegmented Neuts Not Reportable 09/23/17 05:49 Hypogranular Neuts Not Reportable 09/23/17 05:49 Smudge Cells Not Reportable 09/23/17 05:49 Toxic Granulation Not Reportable 09/23/17 05:49 Toxic Vacuolation Not Reportable 09/23/17 05:49 Dohle Bodies Not Reportable 09/23/17 05:49 Pelger-Huet Anomaly Not Reportable 09/23/17 05:49 Jia Rods Not Reportable 09/23/17 05:49 Platelet Estimate Not Reportable 09/23/17 05:49 Clumped Platelets Not Reportable 09/23/17 05:49 Plt Clumps, EDTA Not Reportable 09/23/17 05:49 Large Platelets Not Reportable 09/23/17 05:49 Giant Platelets Not Reportable 09/23/17 05:49 Platelet Satelliting Not Reportable 09/23/17 05:49 Plt Morphology Comment Not Reportable 09/23/17 05:49 RBC Morphology Not Reportable 09/23/17 05:49 Dimorphic RBCs Not Reportable 09/23/17 05:49 Polychromasia Few 09/23/17 05:49 Hypochromasia Not Reportable 09/23/17 05:49 Poikilocytosis Not Reportable 09/23/17 05:49 Anisocytosis Not Reportable 09/23/17 05:49 Microcytosis Not Reportable 09/23/17 05:49 Macrocytosis Not Reportable 09/23/17 05:49 Spherocytes Not Reportable 09/23/17 05:49 Pappenheimer Bodies Not Reportable 09/23/17 05:49 Sickle Cells Not Reportable 09/23/17 05:49 Target Cells Not Reportable 09/23/17 05:49 Tear Drop Cells Not Reportable 09/23/17 05:49 Ovalocytes Not Reportable 09/23/17 05:49 Helmet Cells Not Reportable 09/23/17 05:49 [place] Bodies Not Reportable 09/23/17 05:49 [place] Rings Not Reportable 09/23/17 05:49 Maranda Cells Not Reportable 09/23/17 05:49 Bite Cells Not Reportable 09/23/17 05:49 Crenated Cell Not Reportable 09/23/17 05:49 Elliptocytes Not Reportable 09/23/17 05:49 Acanthocytes (Spur) Not Reportable 09/23/17 05:49 Rouleaux Not Reportable 09/23/17 05:49 Hemoglobin C Crystals Not Reportable 09/23/17 05:49 Schistocytes Not Reportable 09/23/17 05:49 Malaria parasites Not Reportable 09/23/17 05:49 King Bodies Not Reportable 09/23/17 05:49 Hem Pathologist Commnt No 09/23/17 05:49 PT 14.5 Sec. (12.2-14.9) 09/18/17 04:15 INR 1.07 (0.87-1.13) 09/18/17 04:15 APTT 37.3 Sec. (24.2-36.6) H 09/15/17 13:44 POC ABG pH 7.361 (7.35-7.45) 09/15/17 22:00 POC ABG pCO2 40.1 (35-45) 09/15/17 22:00 POC ABG pO2 56 (80-105) L 09/15/17 22:00 POC ABG HCO3 22.7 09/15/17 22:00 POC ABG Total CO2 24 09/15/17 22:00 POC ABG O2 Sat 88 09/15/17 22:00 POC ABG Base Excess -3 09/15/17 22:00 FiO2 28 % 09/15/17 22:00 Sodium 138 mmol/L (137-145) 09/23/17 05:49 Potassium 3.9 mmol/L (3.6-5.0) 09/23/17 05:49 Chloride 90.8 mmol/L (98-107) L 09/23/17 05:49 Carbon Dioxide 26 mmol/L (22-30) 09/23/17 05:49 Anion Gap 25 mmol/L 09/23/17 05:49 BUN 61 mg/dL (7-17) H 09/23/17 05:49 Creatinine 7.3 mg/dL (0.7-1.2) H 09/23/17 05:49 Estimated GFR 6 ml/min 09/23/17 05:49 BUN/Creatinine Ratio 8 % 09/23/17 05:49 Glucose 112 mg/dL (65-100) H 09/23/17 05:49 POC Glucose 96 (70-105) 09/22/17 07:26 Calcium 9.7 mg/dL (8.4-10.2) 09/23/17 05:49 Phosphorus 5.30 mg/dL (2.5-4.5) H 09/23/17 05:49 Magnesium 2.10 mg/dL (1.7-2.3) 09/23/17 05:49 Total Bilirubin 1.30 mg/dL (0.1-1.2) H 09/23/17 05:49 AST 533 units/L (5-40) H 09/23/17 05:49 ALT 143 units/L (7-56) H 09/23/17 05:49 Alkaline Phosphatase 90 units/L (35-129) 09/23/17 05:49 Total Creatine Kinase 46 units/L (30-135) 09/15/17 18:07 CK-MB (CK-2) 1.5 ng/mL (0.0-4.0) 09/15/17 18:07 CK-MB (CK-2) Rel Index 3.2 (0-4) 09/15/17 18:07 Troponin T 0.029 ng/mL (0.00-0.029) 09/15/17 18:07 Total Protein 5.9 g/dL (6.3-8.2) L 09/23/17 05:49 Albumin 3.8 g/dL (3.9-5) L 09/23/17 05:49 Albumin/Globulin Ratio 1.8 % 09/23/17 05:49 Lipase 67 units/L (13-60) H 09/21/17 08:02
--- NOTE | 2017-09-23 15:36 | Progress Note ---
Assessment and Plan Impression * End-stage renal disease on maintenance hemodialysis * Complete heart block * Hypertension * Anemia secondary to ESRD * Nausea and vomiting * Malfunctioning AV fistula * Thrombocytopenia Recommendations * Continue hemodialysis on Mondays, Wednesdays and Fridays schedule for now * Patient is status post permanent pacemaker placement * She had angiogram and angioplasty done of her AV fistula by [facility] vascular * Adjust diet and meds for ESRD state * Procrit with dialysis * No IV, BP of any puncture in her access arm * Discussed plan of care with her family members at bedside Subjective Date of service: 09/23/17 Principal diagnosis: CHB Interval history: Patient is awake and alert. She does complain of some nausea and vomiting. No shortness of breath. Denies any fever or chills. Objective - Vital Signs Vital signs: Vital Signs - 12hr 09/23/17 09/23/17 09/23/17 05:38 07:27 07:28 Temperature 99.6 F 98.4 F Pulse Rate 65 70 70 Pulse Rate [ Apical] Respiratory 19 18 Rate Blood Pressure 129/71 131/75 Blood Pressure [Left] O2 Sat by Pulse 95 97 97 Oximetry 09/23/17 09/23/17 09/23/17 09:02 09:04 09:10 Temperature 98.4 F Pulse Rate 70 70 70 Pulse Rate [ Apical] Respiratory 18 Rate Blood Pressure 131/75 131/75 Blood Pressure 131/75 [Left] O2 Sat by Pulse 97 Oximetry 09/23/17 09/23/17 09/23/17 10:00 10:41 12:48 Temperature 98.4 F Pulse Rate 62 65 Pulse Rate [ 64 Apical] Respiratory 16 18 Rate Blood Pressure 152/85 Blood Pressure [Left] O2 Sat by Pulse 96 96 Oximetry 09/23/17 12:49 Temperature Pulse Rate 66 Pulse Rate [ Apical] Respiratory Rate Blood Pressure 152/85 Blood Pressure [Left] O2 Sat by Pulse 96 Oximetry - General Appearance General appearance: well-developed, well-nourished, appears stated age EENT: PERRL, mucous membranes moist Neck: no JVD, no thyromegaly, no carotid bruit, supple, other (permanent pacemaker in the left infraclavicular area) Respiratory: Present: Clear to Ascultation Cardiology: regular, normal heart rate Gastrointestinal: normal, normoactive bowel sounds Integumentary: no rash, other (AV fistula in her right forearm. Good bruit and thrill) - Lab 09/23/17 05:49 09/23/17 05:49 Most recent lab results Calcium 9.7 mg/dL (8.4-10.2) 09/23/17 05:49 Phosphorus 5.30 mg/dL (2.5-4.5) H 09/23/17 05:49 Magnesium 2.10 mg/dL (1.7-2.3) 09/23/17 05:49
[2017-09-23] MEDS: ZOFRAN IV PRN ×2 (17:47→22:17)
--- NOTE | 2017-09-23 19:13 | Progress Note ---
Assessment and Plan Patient alert,awake. Resting on 3 litres O2. O2 saturation 95%. Patient admitted for complete heart block. Patient has pace maker implantation. Patient receiving aerosol treatment now. - Patient Problems (1) Pulmonary hypertension Current Visit: Yes Status: Acute Plan to address problem: Recommend to place her on medications she taking at home for pulmonary hypertension. Continue O2 supplementation. (2) CHB (complete heart block) Current Visit: Yes Status: Acute Plan to address problem: Patient has pacemaker implantation. (3) Chronic respiratory failure with hypoxia Current Visit: Yes Status: Acute Plan to address problem: O2 supplementation 3 litres via nasal canula. Albuterol/atrovent aerosol treatments q 6 hours. (4) ESRD (end stage renal disease) Current Visit: Yes Status: Acute Plan to address problem: Management as per nephrology. (5) Hypertension Current Visit: Yes Status: Acute Plan to address problem: Management as per primary care. Subjective Date of service: 09/23/17 Principal diagnosis: CHB Interval history: Patient alert,awake. Resting on 3 litres O2. O2 saturation 95%. Patient admitted for complete heart block. Patient has pace maker implantation. Patient receiving aerosol treatment at this time.. Objective Vital Signs - 12hr 09/23/17 09/23/17 09/23/17 07:27 07:28 09:02 Temperature 98.4 F 98.4 F Pulse Rate 70 70 70 Pulse Rate [ Apical] Respiratory 18 18 Rate Blood Pressure 131/75 Blood Pressure 131/75 [Left] O2 Sat by Pulse 97 97 97 Oximetry 09/23/17 09/23/17 09/23/17 09:04 09:10 10:00 Temperature Pulse Rate 70 70 Pulse Rate [ 64 Apical] Respiratory 16 Rate Blood Pressure 131/75 131/75 Blood Pressure [Left] O2 Sat by Pulse 96 Oximetry 09/23/17 09/23/17 09/23/17 10:41 12:48 12:49 Temperature 98.4 F Pulse Rate 62 65 66 Pulse Rate [ Apical] Respiratory 18 Rate Blood Pressure 152/85 152/85 Blood Pressure [Left] O2 Sat by Pulse 96 96 Oximetry 09/23/17 09/23/17 16:54 17:09 Temperature Pulse Rate 58 L Pulse Rate [ Apical] Respiratory 18 Rate Blood Pressure 161/85 Blood Pressure [Left] O2 Sat by Pulse 95 Oximetry Constitutional: no acute distress, alert Eyes: non-icteric ENT: oropharynx moist Neck: supple, no lymphadenopathy, no JVD, other (No thyromegaly) Effort: normal Ascultation: Bilateral: diminished breath sounds Percussion: Bilateral: not dull Cardiovascular: other (S1,S2 no murmurs, active precordium) Gastrointestinal: normoactive bowel sounds, soft, non-tender, non-distended Integumentary: normal, other (right forearm AV-graft) Extremities: no cyanosis, no edema, pulses normal, no ischemia or petechiae, other (right femoral transvenous pacemaker) Neurologic: normal mental status, non-focal exam, pupils equal and round Psychiatric: mood appropriate, affect normal CBC and BMP: 09/23/17 05:49 09/23/17 05:49 ABG, PT/INR, D-dimer: ABG POC ABG pH 7.361 (7.35-7.45) 09/15/17 22:00 POC ABG pCO2 40.1 (35-45) 09/15/17 22:00 POC ABG pO2 56 (80-105) L 09/15/17 22:00 POC ABG HCO3 22.7 09/15/17 22:00 POC ABG Total CO2 24 09/15/17 22:00 POC ABG O2 Sat 88 09/15/17 22:00 PT/INR, D-dimer PT 14.5 Sec. (12.2-14.9) 09/18/17 04:15 INR 1.07 (0.87-1.13) 09/18/17 04:15 Abnormal lab findings: Abnormal Labs 09/15/17 09/15/17 09/15/17 13:44 13:44 13:44 RDW 16.8 H Plt Count 86 L Lymph % (Auto) [place] % (Auto) Lymph # 0.9 L Seg Neutrophils % 72.2 H Seg Neuts % (Manual) Lymphocytes % (Manual) Seg Neutrophils # Seg Neutrophils # Man Lymphocytes # (Manual) PT 16.3 H INR 1.24 H APTT 37.3 H POC ABG pO2 Potassium Chloride 107.2 H Carbon Dioxide 19 L BUN 58 H Creatinine 9.6 H Glucose 173 H POC Glucose Phosphorus Magnesium 2.40 H Total Bilirubin AST ALT Total Protein 5.3 L Albumin 3.3 L Lipase 09/15/17 09/16/1709/16/17 22:00 04:04 07:35 RDW Plt Count Lymph % (Auto) [place] % (Auto) Lymph # Seg Neutrophils % Seg Neuts % (Manual) Lymphocytes % (Manual) Seg Neutrophils # Seg Neutrophils # Man Lymphocytes # (Manual) PT INR APTT POC ABG pO2 56 L Potassium Chloride Carbon Dioxide 20 L BUN 65 H Creatinine 10.5 H Glucose POC Glucose 62 L Phosphorus Magnesium 2.50 H Total Bilirubin AST ALT Total Protein Albumin Lipase 09/16/17 09/16/17 09/17/17 08:44 23:31 01:13 RDW Plt Count Lymph % (Auto) [place] % (Auto) Lymph # Seg Neutrophils % Seg Neuts % (Manual) Lymphocytes % (Manual) Seg Neutrophils # Seg Neutrophils # Man Lymphocytes # (Manual) PT INR APTT POC ABG pO2 Potassium Chloride Carbon Dioxide BUN Creatinine Glucose POC Glucose 143 H 66 L 118 H Phosphorus Magnesium Total Bilirubin AST ALT Total Protein Albumin Lipase 09/17/17 09/17/17 09/17/17 05:46 11:13 11:13 RDW 15.9 H Plt Count 72 L Lymph % (Auto) [place] % (Auto) Lymph # Seg Neutrophils % Seg Neuts % (Manual) Lymphocytes % (Manual) Seg Neutrophils # Seg Neutrophils # Man Lymphocytes # (Manual) PT INR APTT POC ABG pO2 Potassium 5.2 H Chloride Carbon Dioxide 21 L BUN 49 H Creatinine 10.1 H Glucose POC Glucose 67 L Phosphorus Magnesium Total Bilirubin AST ALT Total Protein Albumin Lipase 09/17/17 09/18/17 09/18/17 17:36 04:15 04:15 RDW 16.3 H Plt Count 71 L Lymph % (Auto) [place] % (Auto) 11.1 H Lymph # 1.0 L Seg Neutrophils % 70.3 H Seg Neuts % (Manual) Lymphocytes % (Manual) Seg Neutrophils # Seg Neutrophils # Man Lymphocytes # (Manual) PT INR APTT POC ABG pO2 Potassium 5.3 H Chloride 95.3 L Carbon Dioxide BUN 28 H Creatinine 6.3 H Glucose 123 H POC Glucose 118 H Phosphorus Magnesium Total Bilirubin AST ALT Total Protein Albumin Lipase 09/18/17 09/19/17 09/20/17 05:14 11:23 09:11 RDW 15.8 H Plt Count 46 L Lymph % (Auto) 6.9 L [place] % (Auto) Lymph # 0.7 L Seg Neutrophils % 86.3 H Seg Neuts % (Manual) Lymphocytes % (Manual) Seg Neutrophils # 9.4 H Seg Neutrophils # Man Lymphocytes # (Manual) PT INR APTT POC ABG pO2 Potassium Chloride Carbon Dioxide BUN Creatinine Glucose POC Glucose 116 H 121 H Phosphorus Magnesium Total Bilirubin AST ALT Total Protein Albumin Lipase 09/20/17 09/21/17 09/22/17 09:11 08:02 06:37 RDW 15.6 H Plt Count 52 L Lymph % (Auto) [place] % (Auto) Lymph # Seg Neutrophils % Seg Neuts % (Manual) Lymphocytes % (Manual) Seg Neutrophils # Seg Neutrophils # Man Lymphocytes # (Manual) PT INR APTT POC ABG pO2 Potassium 5.9 H D Chloride 95.2 L 93.9 L Carbon Dioxide 18 L 21 L BUN 52 H 72 H Creatinine 6.6 H 8.2 H Glucose 112 H POC Glucose Phosphorus 8.10 H Magnesium Total Bilirubin AST ALT Total Protein Albumin Lipase 67 H 09/22/17 09/23/17 09/23/17 06:37 05:49 05:49 RDW 16.1 H Plt Count 53 L Lymph % (Auto) [place] % (Auto) Lymph # Seg Neutrophils % Seg Neuts % (Manual) 81.0 H Lymphocytes % (Manual) 7.0 L Seg Neutrophils # Seg Neutrophils # Man 7.9 H Lymphocytes # (Manual) 0.7 L PT INR APTT POC ABG pO2 Potassium Chloride 94.4 L 90.8 L Carbon Dioxide BUN 95 H 61 H Creatinine 10.2 H 7.3 H Glucose 104 H 112 H POC Glucose Phosphorus 5.30 H Magnesium Total Bilirubin 1.30 H AST 533 H ALT 143 H Total Protein 5.9 L Albumin 3.8 L Lipase Chest x-ray: report reviewed (Cardiomegaly,pulmonary venous congestion.Pace maker implantation.), image reviewed Allied health notes reviewed: nursing
[2017-09-24] MEDS: CARAFATE PO SCH ×4 (08:05→21:15)
[2017-09-24] MEDS: DUONEB *Not for PRN Use IH SCH ×3 (08:23→20:02)
[2017-09-24] MEDS: ZOFRAN IV PRN (10:11)
[2017-09-24] MEDS: APRESOLINE IV PRN (11:09)
[2017-09-24] MEDS ORDERED: NACL 0.9% 100 ML IV PRN (11:32)
--- NOTE | 2017-09-24 11:56 | Progress Note ---
Assessment and Plan Assessment and plan: 57 YO Female with HTN, ESRD on HD(M,W,F), COPD, Chronic Respiratory Failure on 3L Home oxygen, Diastolic CHF, Pulmonary HTN, SDH presents to ED for evaluation. Pt unable to provide history due to lethargy and confusion. Pt history taken from medical record, and ED staff. As per staff, Pt experienced pain in her chest this morning, an a subsequent blood pressure check showed a systolic BP in the 60's. EMS notified, and upon arrival the patient was found to have a heart rate in the 20/s, and was externally paced and transported to [facility] for evaluation and treatment. Pt seen and evaluated in ED and found to be in extremis. Pt subcutaneously paced at 60bpm and initiated on dopamine drip for cardiogenic shock. Pt is lethargic but is able to protect her airway. Cardiology consulted in ED and petient taken urgently to director labor standards. Pt subsequently admitted to ICU. Dysphagia and vomiting with streak of blood- likely negrita bello tear Fup Hg, For MBS and swallow evaluation Metabolic encephalopathy -less responsive and sleepy since she had AV graft plasty and HD -if not improved by tomorrow, will need imaging of brain - Cardiogenic shock, improved Cardiology following, Pt is s/p TVP placement, s/p PPM placement 09/18/17 - Nausea/vomiting will cont PPI and carafate for possible PUD, Zofran if no improvement then consider consulting GI for possible EGD - hyperkalemia likely from ESRD, K LEVEL 4.7 TODAY ordered kayexalate if k level >5.2 - HTN, uncontrolled held all BB, CCB started on hydralazine, but she was getting tachycardia cont to monitor, now on BB - Acute on chronic respiratory failure likely from cardiogenic shock, and underlying COPD CXR suggestive for pulmonary congestion she is on home O2 cont supplemental O2, duenebs - COPD cont O2 n/c. and nebulizer - CHB (complete heart block) Cardiology consulted, s/p Transcutaneous pacing, Pt taken urgently to director labor standards for intervention. s/p PPM placement on 09/18/17 - ESRD has h/o renal transplant Nephrology consulted for dialysis, monitor uop q shift, dialysis per renal. 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 now closely monitor with frequent neuro assessment - Encephalopathy, resolved likely Metabolic encephalopathy: appears more alert and awake today - dialysis as per renal team, supportive care, treat underlying cause RUE Fistulogram done today 09/22/17 - DVT prophylaxis lovenox History Interval history: Family is complaining that she has been vomiting, they also note that she has been drowsy and confused and not quite herself Review of systems Neurological: Has been confused and drowsy Constitutional: No fevers, no malaise, no joint pains CVS: No chest pain, no orthopnea, no dyspnea on exertion, no pedal edema GI: She has had vomiting and pain associated with swallowing as per family members. Respiratory: No shortness of breath, no wheezing, no coughing Hospitalist Physical - Physical exam Narrative exam: General.: Appears well, no distress, nontoxic HEENT: Moist mucous membranes, extraocular muscles intact, no lymphadenopathy Neck: supple Cardiac: S1-S2 heard Lungs: clear to auscultation bilaterally Abdomen: soft , nontender, nondistended, bowel sounds positive Extremities: no edema clubbing or cyanosis Skin: no rash or lesions Neurologic: no gross focal deficits Psych: appropriate behavior, appropriate mood, corporative, judgment intact - Constitutional Vitals: Temp Pulse Resp BP Pulse Ox 98.5 F 65 16 201/92 97 09/24/17 09:56 09/24/17 11:30 09/24/17 09:56 09/24/17 11:30 09/24/17 09:56 General appearance: Present: no acute distress, well-nourished Results - Labs CBC & Chem 7: 09/28/17 13:17 09/26/17 05:51 Labs: Laboratory Last Values WBC 9.8 K/mm3 (4.5-11.0) 09/23/17 05:49 RBC 3.95 M/mm3 (3.65-5.03) 09/23/17 05:49 Hgb 11.8 gm/dl (10.1-14.3) 09/23/17 05:49 Hct 35.8 % (30.3-42.9) 09/23/17 05:49 MCV 91 fl (79-97) 09/23/17 05:49 MCH 30 pg (28-32) 09/23/17 05:49 MCHC 33 % (30-34) 09/23/17 05:49 RDW 16.1 % (13.2-15.2) H 09/23/17 05:49 Plt Count 53 K/mm3 (140-440) L 09/23/17 05:49 Lymph % (Auto) 6.9 % (13.4-35.0) L 09/20/17 09:11 [place] % (Auto) 6.5 % (0.0-7.3) 09/20/17 09:11 Eos % (Auto) 0.1 % (0.0-4.3) 09/20/17 09:11 Baso % (Auto) 0.2 % (0.0-1.8) 09/20/17 09:11 Lymph # 0.7 K/mm3 (1.2-5.4) L 09/20/17 09:11 [place] # 0.7 K/mm3 (0.0-0.8) 09/20/17 09:11 Eos # 0.0 K/mm3 (0.0-0.4) 09/20/17 09:11 Baso # 0.0 K/mm3 (0.0-0.1) 09/20/17 09:11 Add Manual Diff Complete 09/23/17 05:49 Total Counted 100 09/23/17 05:49 Seg Neutrophils % 86.3 % (40.0-70.0) H 09/20/17 09:11 Seg Neuts % (Manual) 81.0 % (40.0-70.0) H 09/23/17 05:49 Band Neutrophils % 5.0 % 09/23/17 05:49 Lymphocytes % (Manual) 7.0 % (13.4-35.0) L 09/23/17 05:49 Reactive Lymphs % (Man) 0 % 09/23/17 05:49 Monocytes % (Manual) 5.0 % (0.0-7.3) 09/23/17 05:49 Eosinophils % (Manual) 2.0 % (0.0-4.3) 09/23/17 05:49 Basophils % (Manual) 0 % (0.0-1.8) 09/23/17 05:49 Metamyelocytes % 0 % 09/23/17 05:49 Myelocytes % 0 % 09/23/17 05:49 Promyelocytes % 0 % 09/23/17 05:49 Blast Cells % 0 % 09/23/17 05:49 Nucleated RBC % Not Reportable 09/23/17 05:49 Seg Neutrophils # 9.4 K/mm3 (1.8-7.7) H 09/20/17 09:11 Seg Neutrophils # Man 7.9 K/mm3 (1.8-7.7) H 09/23/17 05:49 Band Neutrophils # 0.5 K/mm3 09/23/17 05:49 Lymphocytes # (Manual) 0.7 K/mm3 (1.2-5.4) L 09/23/17 05:49 Abs React Lymphs (Man) 0.0 K/mm3 09/23/17 05:49 Monocytes # (Manual) 0.5 K/mm3 (0.0-0.8) 09/23/17 05:49 Eosinophils # (Manual) 0.2 K/mm3 (0.0-0.4) 09/23/17 05:49 Basophils # (Manual) 0.0 K/mm3 (0.0-0.1) 09/23/17 05:49 Metamyelocytes # 0.0 K/mm3 09/23/17 05:49 Myelocytes # 0.0 K/mm3 09/23/17 05:49 Promyelocytes # 0.0 K/mm3 09/23/17 05:49 Blast Cells # 0.0 K/mm3 09/23/17 05:49 WBC Morphology Not Reportable 09/23/17 05:49 Hypersegmented Neuts Not Reportable 09/23/17 05:49 Hyposegmented Neuts Not Reportable 09/23/17 05:49 Hypogranular Neuts Not Reportable 09/23/17 05:49 Smudge Cells Not Reportable 09/23/17 05:49 Toxic Granulation Not Reportable 09/23/17 05:49 Toxic Vacuolation Not Reportable 09/23/17 05:49 Dohle Bodies Not Reportable 09/23/17 05:49 Pelger-Huet Anomaly Not Reportable 09/23/17 05:49 Jia Rods Not Reportable 09/23/17 05:49 Platelet Estimate Not Reportable 09/23/17 05:49 Clumped Platelets Not Reportable 09/23/17 05:49 Plt Clumps, EDTA Not Reportable 09/23/17 05:49 Large Platelets Not Reportable 09/23/17 05:49 Giant Platelets Not Reportable 09/23/17 05:49 Platelet Satelliting Not Reportable 09/23/17 05:49 Plt Morphology Comment Not Reportable 09/23/17 05:49 RBC Morphology Not Reportable 09/23/17 05:49 Dimorphic RBCs Not Reportable 09/23/17 05:49 Polychromasia Few 09/23/17 05:49 Hypochromasia Not Reportable 09/23/17 05:49 Poikilocytosis Not Reportable 09/23/17 05:49 Anisocytosis Not Reportable 09/23/17 05:49 Microcytosis Not Reportable 09/23/17 05:49 Macrocytosis Not Reportable 09/23/17 05:49 Spherocytes Not Reportable 09/23/17 05:49 Pappenheimer Bodies Not Reportable 09/23/17 05:49 Sickle Cells Not Reportable 09/23/17 05:49 Target Cells Not Reportable 09/23/17 05:49 Tear Drop Cells Not Reportable 09/23/17 05:49 Ovalocytes Not Reportable 09/23/17 05:49 Helmet Cells Not Reportable 09/23/17 05:49 [place] Bodies Not Reportable 09/23/17 05:49 [place] Rings Not Reportable 09/23/17 05:49 [place] Cells Not Reportable 09/23/17 05:49 Bite Cells Not Reportable 09/23/17 05:49 Crenated Cell Not Reportable 09/23/17 05:49 Elliptocytes Not Reportable 09/23/17 05:49 Acanthocytes (Spur) Not Reportable 09/23/17 05:49 Rouleaux Not Reportable 09/23/17 05:49 Hemoglobin C Crystals Not Reportable 09/23/17 05:49 Schistocytes Not Reportable 09/23/17 05:49 Malaria parasites Not Reportable 09/23/17 05:49 [place] Bodies Not Reportable 09/23/17 05:49 Hem Pathologist Commnt No 09/23/17 05:49 PT 14.5 Sec. (12.2-14.9) 09/18/17 04:15 INR 1.07 (0.87-1.13) 09/18/17 04:15 APTT 37.3 Sec. (24.2-36.6) H 09/15/17 13:44 POC ABG pH 7.361 (7.35-7.45) 09/15/17 22:00 POC ABG pCO2 40.1 (35-45) 09/15/17 22:00 POC ABG pO2 56 (80-105) L 09/15/17 22:00 POC ABG HCO3 22.7 09/15/17 22:00 POC ABG Total CO2 24 09/15/17 22:00 POC ABG O2 Sat 88 09/15/17 22:00 POC ABG Base Excess -3 09/15/17 22:00 FiO2 28 % 09/15/17 22:00 Sodium 138 mmol/L (137-145) 09/23/17 05:49 Potassium 3.9 mmol/L (3.6-5.0) 09/23/17 05:49 Chloride 90.8 mmol/L (98-107) L 09/23/17 05:49 Carbon Dioxide 26 mmol/L (22-30) 09/23/17 05:49 Anion Gap 25 mmol/L 09/23/17 05:49 BUN 61 mg/dL (7-17) H 09/23/17 05:49 Creatinine 7.3 mg/dL (0.7-1.2) H 09/23/17 05:49 Estimated GFR 6 ml/min 09/23/17 05:49 BUN/Creatinine Ratio 8 % 09/23/17 05:49 Glucose 112 mg/dL (65-100) H 09/23/17 05:49 POC Glucose 96 (70-105) 09/22/17 07:26 Calcium 9.7 mg/dL (8.4-10.2) 09/23/17 05:49 Phosphorus 5.30 mg/dL (2.5-4.5) H 09/23/17 05:49 Magnesium 2.10 mg/dL (1.7-2.3) 09/23/17 05:49 Total Bilirubin 1.30 mg/dL (0.1-1.2) H 09/23/17 05:49 AST 533 units/L (5-40) H 09/23/17 05:49 ALT 143 units/L (7-56) H 09/23/17 05:49 Alkaline Phosphatase 90 units/L (35-129) 09/23/17 05:49 Total Creatine Kinase 46 units/L (30-135) 09/15/17 18:07 CK-MB (CK-2) 1.5 ng/mL (0.0-4.0) 09/15/17 18:07 CK-MB (CK-2) Rel Index 3.2 (0-4) 09/15/17 18:07 Troponin T 0.029 ng/mL (0.00-0.029) 09/15/17 18:07 Total Protein 5.9 g/dL (6.3-8.2) L 09/23/17 05:49 Albumin 3.8 g/dL (3.9-5) L 09/23/17 05:49 Albumin/Globulin Ratio 1.8 % 09/23/17 05:49 Lipase 67 units/L (13-60) H 09/21/17 08:02
[2017-09-24 12:54] LABS: Hepatitis A Antibody IgM Non-Reactive (NonReactive); Hepatitis B Core IgM Non-Reactive (NonReactive); Hepatitis B Surface Antigen Non-Reactive (Negative); Hepatitis C Virus Antibody Non-Reactive (NonReactive)
[2017-09-24] MEDS: LOPRESSOR PO SCH ×2 (13:19→21:16)
[2017-09-24] MEDS: NORVASC PO SCH (13:21)
[2017-09-24] MEDS: PROTONIX PO SCH ×2 (13:25→21:15)
--- NOTE | 2017-09-24 13:57 | Progress Note ---
Assessment and Plan Impression * End-stage renal disease on maintenance hemodialysis * Complete heart block * Hypertension * Anemia secondary to ESRD * Nausea and vomiting * Malfunctioning AV fistula * Thrombocytopenia * Abnormal LFTs Recommendations * Continue hemodialysis on Mondays, Wednesdays and Fridays schedule for now * Patient is status post permanent pacemaker placement * She had angiogram and angioplasty done of her AV fistula by [facility] vascular * Adjust diet and meds for ESRD state * Procrit with dialysis * No IV, BP of any puncture in her access arm * Consider GI evaluation for her nausea and vomiting as well as abnormal LFTs Subjective Date of service: 09/24/17 Principal diagnosis: CHB Interval history: Patient is currently undergoing hemodialysis. Tolerating well. She is comfortable. Denies any shortness of breath. Continues to complain of nausea and vomiting Objective - Vital Signs Vital signs: Vital Signs - 12hr 09/24/17 09/24/17 09/24/17 05:15 08:00 08:08 Temperature 98.9 F Pulse Rate 63 Pulse Rate [ 64 66 Anterior Bilateral Throughout] Respiratory 18 Rate Respiratory 16 16 Rate [Anterior Bilateral Throughout] Blood Pressure 157/81 Blood Pressure [Left] O2 Sat by Pulse 99 Oximetry 09/24/17 09/24/17 09/24/17 08:26 09:40 09:56 Temperature 98.2 F 98.5 F Pulse Rate 60 65 Pulse Rate [ Anterior Bilateral Throughout] Respiratory 18 16 Rate Respiratory Rate [Anterior Bilateral Throughout] Blood Pressure 187/97 Blood Pressure 166/87 [Left] O2 Sat by Pulse 96 97 Oximetry 09/24/17 09/24/17 09/24/17 10:00 10:15 10:30 Temperature Pulse Rate 65 61 63 Pulse Rate [ Anterior Bilateral Throughout] Respiratory Rate Respiratory Rate [Anterior Bilateral Throughout] Blood Pressure 186/94 201/99 203/93 Blood Pressure [Left] O2 Sat by Pulse 98 Oximetry 09/24/17 09/24/17 09/24/17 10:45 11:00 11:09 Temperature Pulse Rate 63 65 65 Pulse Rate [ Anterior Bilateral Throughout] Respiratory Rate Respiratory Rate [Anterior Bilateral Throughout] Blood Pressure 209/108 202/94 202/94 Blood Pressure [Left] O2 Sat by Pulse Oximetry 09/24/17 09/24/17 09/24/17 11:15 11:30 11:45 Temperature Pulse Rate 66 65 69 Pulse Rate [ Anterior Bilateral Throughout] Respiratory Rate Respiratory Rate [Anterior Bilateral Throughout] Blood Pressure 203/92 201/92 209/89 Blood Pressure [Left] O2 Sat by Pulse Oximetry 09/24/17 09/24/17 09/24/17 12:00 12:15 12:30 Temperature Pulse Rate 66 62 63 Pulse Rate [ Anterior Bilateral Throughout] Respiratory Rate Respiratory Rate [Anterior Bilateral Throughout] Blood Pressure 205/88 208/87 211/91 Blood Pressure [Left] O2 Sat by Pulse Oximetry 09/24/17 09/24/17 09/24/17 12:45 13:00 13:15 Temperature Pulse Rate 69 65 66 Pulse Rate [ Anterior Bilateral Throughout] Respiratory Rate Respiratory Rate [Anterior Bilateral Throughout] Blood Pressure 202/99 217/90 214/92 Blood Pressure [Left] O2 Sat by Pulse Oximetry 09/24/17 09/24/17 13:19 13:21 Temperature Pulse Rate 69 63 Pulse Rate [ Anterior Bilateral Throughout] Respiratory Rate Respiratory Rate [Anterior Bilateral Throughout] Blood Pressure 202/99 211/91 Blood Pressure [Left] O2 Sat by Pulse Oximetry - General Appearance General appearance: well-developed, well-nourished, appears stated age EENT: PERRL, mucous membranes moist Neck: no JVD, no thyromegaly, no carotid bruit, supple Respiratory: Present: Clear to Ascultation Cardiology: regular, normal heart rate, S1S2, no murmurs Gastrointestinal: normal, normoactive bowel sounds Integumentary: other (no edema. AV fistula in her right forearm. Cannulated for dialysis) - Lab 09/23/17 05:49 09/23/17 05:49 Most recent lab results Calcium 9.7 mg/dL (8.4-10.2) 09/23/17 05:49 Phosphorus 5.30 mg/dL (2.5-4.5) H 09/23/17 05:49 Magnesium 2.10 mg/dL (1.7-2.3) 09/23/17 05:49
--- NOTE | 2017-09-24 15:17 | Fluoroscopy Report ---
MODIFIED BARIUM SWALLOW History: dysphagia. Findings: Video radiography was provided by the radiologist for speech therapy to assess the swallowing mechanism. Please refer to the formal report by speech therapy. Impression: Successful modified barium swallow.
--- NOTE | 2017-09-24 16:55 | Progress Note ---
Assessment and Plan Patient sleeping at this time. No acute respiratory distress.O2 saturation 95% on 3 litres O2. - Patient Problems (1) Pulmonary hypertension Current Visit: Yes Status: Acute Plan to address problem: Recommend to place her on medications she taking at home for pulmonary hypertension. Continue O2 supplementation. (2) CHB (complete heart block) Current Visit: Yes Status: Acute Plan to address problem: Patient has pacemaker implantation. (3) Chronic respiratory failure with hypoxia Current Visit: Yes Status: Acute Plan to address problem: O2 supplementation 3 litres via nasal canula. Albuterol/atrovent aerosol treatments q 6 hours. (4) ESRD (end stage renal disease) Current Visit: Yes Status: Acute Plan to address problem: Management as per nephrology. (5) Hypertension Current Visit: Yes Status: Acute Plan to address problem: Management as per primary care. Subjective Date of service: 09/24/17 Principal diagnosis: CHB Interval history: Patient sleeping at this time. No acute respiratory distress.O2 saturation 95% on 3 litres O2. Objective Vital Signs - 12hr 09/24/17 09/24/17 09/24/17 05:15 08:00 08:08 Temperature 98.9 F Pulse Rate 63 Pulse Rate [ 64 66 Anterior Bilateral Throughout] Respiratory 18 Rate Respiratory 16 16 Rate [Anterior Bilateral Throughout] Blood Pressure 157/81 Blood Pressure [Left] O2 Sat by Pulse 99 Oximetry 09/24/17 09/24/17 09/24/17 08:26 09:40 09:56 Temperature 98.2 F 98.5 F Pulse Rate 60 65 Pulse Rate [ Anterior Bilateral Throughout] Respiratory 18 16 Rate Respiratory Rate [Anterior Bilateral Throughout] Blood Pressure 187/97 Blood Pressure 166/87 [Left] O2 Sat by Pulse 96 97 Oximetry 09/24/17 09/24/17 09/24/17 10:00 10:15 10:30 Temperature Pulse Rate 65 61 63 Pulse Rate [ Anterior Bilateral Throughout] Respiratory Rate Respiratory Rate [Anterior Bilateral Throughout] Blood Pressure 186/94 201/99 203/93 Blood Pressure [Left] O2 Sat by Pulse 98 Oximetry 09/24/17 09/24/17 09/24/17 10:45 11:00 11:09 Temperature Pulse Rate 63 65 65 Pulse Rate [ Anterior Bilateral Throughout] Respiratory Rate Respiratory Rate [Anterior Bilateral Throughout] Blood Pressure 209/108 202/94 202/94 Blood Pressure [Left] O2 Sat by Pulse Oximetry 09/24/17 09/24/17 09/24/17 11:15 11:30 11:45 Temperature Pulse Rate 66 65 69 Pulse Rate [ Anterior Bilateral Throughout] Respiratory Rate Respiratory Rate [Anterior Bilateral Throughout] Blood Pressure 203/92 201/92 209/89 Blood Pressure [Left] O2 Sat by Pulse Oximetry 09/24/17 09/24/17 09/24/17 12:00 12:15 12:30 Temperature Pulse Rate 66 62 63 Pulse Rate [ Anterior Bilateral Throughout] Respiratory Rate Respiratory Rate [Anterior Bilateral Throughout] Blood Pressure 205/88 208/87 211/91 Blood Pressure [Left] O2 Sat by Pulse Oximetry 09/24/17 09/24/17 12 12:45 13:00 13:15 Temperature Pulse Rate 69 65 66 Pulse Rate [ Anterior Bilateral Throughout] Respiratory Rate Respiratory Rate [Anterior Bilateral Throughout] Blood Pressure 202/99 217/90 214/92 Blood Pressure [Left] O2 Sat by Pulse Oximetry 09/24/17 09/24/17 09/24/17 13:19 13:21 13:30 Temperature Pulse Rate 69 63 71 Pulse Rate [ Anterior Bilateral Throughout] Respiratory Rate Respiratory Rate [Anterior Bilateral Throughout] Blood Pressure 202/99 211/91 190/88 Blood Pressure [Left] O2 Sat by Pulse Oximetry 09/24/17 13:45 Temperature 98.3 F Pulse Rate 70 Pulse Rate [ Anterior Bilateral Throughout] Respiratory 18 Rate Respiratory Rate [Anterior Bilateral Throughout] Blood Pressure 193/86 Blood Pressure [Left] O2 Sat by Pulse Oximetry Constitutional: no acute distress, asleep Eyes: non-icteric ENT: oropharynx moist Neck: supple, no lymphadenopathy, no JVD, other (No thyromegaly) Effort: normal Ascultation: Bilateral: diminished breath sounds Percussion: Bilateral: not dull Cardiovascular: other (S1,S2 no murmurs, active precordium) Gastrointestinal: normoactive bowel sounds, soft, non-tender, non-distended Integumentary: normal, other (right forearm AV-graft) Extremities: no cyanosis, no edema, pulses normal, no ischemia or petechiae, other (right femoral transvenous pacemaker) Neurologic: normal mental status, non-focal exam, pupils equal and round Psychiatric: other (In deep sleep.) CBC and BMP: 09/23/17 05:49 09/23/17 05:49 ABG, PT/INR, D-dimer: ABG POC ABG pH 7.361 (7.35-7.45) 09/15/17 22:00 POC ABG pCO2 40.1 (35-45) 09/15/17 22:00 POC ABG pO2 56 (80-105) L 09/15/17 22:00 POC ABG HCO3 22.7 09/15/17 22:00 POC ABG Total CO2 24 09/15/17 22:00 POC ABG O2 Sat 88 09/15/17 22:00 PT/INR, D-dimer PT 14.5 Sec. (12.2-14.9) 09/18/17 04:15 INR 1.07 (0.87-1.13) 09/18/17 04:15 Abnormal lab findings: Abnormal Labs 09/15/17 09/15/17 09/15/17 13:44 13:44 13:44 RDW 16.8 H Plt Count 86 L Lymph % (Auto) [place] % (Auto) Lymph # 0.9 L Seg Neutrophils % 72.2 H Seg Neuts % (Manual) Lymphocytes % (Manual) Seg Neutrophils # Seg Neutrophils # Man Lymphocytes # (Manual) PT 16.3 H INR 1.24 H APTT 37.3 H POC ABG pO2 Potassium Chloride 107.2 H Carbon Dioxide 19 L BUN 58 H Creatinine 9.6 H Glucose 173 H POC Glucose Phosphorus Magnesium 2.40 H Total Bilirubin AST ALT Total Protein 5.3 L Albumin 3.3 L Lipase 09/15/17 09/16/17 09/16/17 22:00 04:04 07:35 RDW Plt Count Lymph % (Auto) [place] % (Auto) Lymph # Seg Neutrophils % Seg Neuts % (Manual) Lymphocytes % (Manual) Seg Neutrophils # Seg Neutrophils # Man Lymphocytes # (Manual) PT INR APTT POC ABG pO2 56 L Potassium Chloride Carbon Dioxide 20 L BUN 65 H Creatinine 10.5 H Glucose POC Glucose 62 L Phosphorus Magnesium 2.50 H Total Bilirubin AST ALT Total Protein Albumin Lipase 09/16/17 09/16/17 09/17/17 08:44 23:31 01:13 RDW Plt Count Lymph % (Auto) [place] % (Auto) Lymph # Seg Neutrophils % Seg Neuts % (Manual) Lymphocytes % (Manual) Seg Neutrophils # Seg Neutrophils # Man Lymphocytes # (Manual) PT INR APTT POC ABG pO2 Potassium Chloride Carbon Dioxide BUN Creatinine Glucose POC Glucose 143 H 66 L 118 H Phosphorus Magnesium Total Bilirubin AST ALT Total Protein Albumin Lipase 09/17/17 09/17/17 09/17/17 05:46 11:13 11:13 RDW 15.9 H Plt Count 72 L Lymph % (Auto) [place] % (Auto) Lymph # Seg Neutrophils % Seg Neuts % (Manual) Lymphocytes % (Manual) Seg Neutrophils # Seg Neutrophils # Man Lymphocytes # (Manual) PT INR APTT POC ABG pO2 Potassium 5.2 H Chloride Carbon Dioxide 21 L BUN 49 H Creatinine 10.1 H Glucose POC Glucose 67 L Phosphorus Magnesium Total Bilirubin AST ALT Total Protein Albumin Lipase 09/17/17 09/18/17 09/18/17 17:36 04:15 04:15 RDW 16.3 H Plt Count 71 L Lymph % (Auto) [place] % (Auto) 11.1 H Lymph # 1.0 L Seg Neutrophils % 70.3 H Seg Neuts % (Manual) Lymphocytes % (Manual) Seg Neutrophils # Seg Neutrophils # Man Lymphocytes # (Manual) PT INR APTT POC ABG pO2 Potassium 5.3 H Chloride 95.3 L Carbon Dioxide BUN 28 H Creatinine 6.3 H Glucose 123 H POC Glucose 118 H Phosphorus Magnesium Total Bilirubin AST ALT Total Protein Albumin Lipase 09/18/17 09/19/17 09/20/17 05:14 11:23 09:11 RDW 15.8 H Plt Count 46 L Lymph % (Auto) 6.9 L [place] % (Auto) Lymph # 0.7 L Seg Neutrophils % 86.3 H Seg Neuts % (Manual) Lymphocytes % (Manual) Seg Neutrophils # 9.4 H Seg Neutrophils # Man Lymphocytes # (Manual) PT INR APTT POC ABG pO2 Potassium Chloride Carbon Dioxide BUN Creatinine Glucose POC Glucose 116 H 121 H Phosphorus Magnesium Total Bilirubin AST ALT Total Protein Albumin Lipase 09/20/17 09/21/17 09/22/17 09:11 08:02 06:37 RDW 15.6 H Plt Count 52 L Lymph % (Auto) [place] % (Auto) Lymph # Seg Neutrophils % Seg Neuts % (Manual) Lymphocytes % (Manual) Seg Neutrophils # Seg Neutrophils # Man Lymphocytes # (Manual) PT INR APTT POC ABG pO2 Potassium 5.9 H D Chloride 95.2 L 93.9 L Carbon Dioxide 18 L 21 L BUN 52 H 72 H Creatinine 6.6 H 8.2 H Glucose 112 H POC Glucose Phosphorus 8.10 H Magnesium Total Bilirubin AST ALT Total Protein Albumin Lipase 67 H 09/22/17 09/23/17 09/23/17 06:37 05:49 05:49 RDW 16.1 H Plt Count 53 L Lymph % (Auto) [place] % (Auto) Lymph # Seg Neutrophils % Seg Neuts % (Manual) 81.0 H Lymphocytes % (Manual) 7.0 L Seg Neutrophils # Seg Neutrophils # Man 7.9 H Lymphocytes # (Manual) 0.7 L PT INR APTT POC ABG pO2 Potassium Chloride 94.4 L 90.8 L Carbon Dioxide BUN 95 H 61 H Creatinine 10.2 H 7.3 H Glucose 104 H 112 H POC Glucose Phosphorus 5.30 H Magnesium Total Bilirubin 1.30 H AST 533 H ALT 143 H Total Protein 5.9 L Albumin 3.8 L Lipase Allied health notes reviewed: nursing
[2017-09-24] MEDS: PERCOCET 5/325 PO PRN (18:42)
[2017-09-25] MEDS: PERCOCET 5/325 PO PRN ×2 (00:30→09:52)
[2017-09-25] MEDS: CARAFATE PO SCH ×5 (08:23→22:04)
[2017-09-25] MEDS: DUONEB *Not for PRN Use IH SCH ×3 (08:33→22:09)
[2017-09-25] MEDS: PROTONIX PO SCH ×2 (09:51→22:03)
[2017-09-25] MEDS: LOPRESSOR PO SCH ×2 (09:51→22:03)
[2017-09-25] MEDS: NORVASC PO SCH (09:51)
--- NOTE | 2017-09-25 13:41 | Progress Note ---
Assessment and Plan Impression * End-stage renal disease on maintenance hemodialysis * Complete heart block * Hypertension * Anemia secondary to ESRD * Nausea and vomiting * Malfunctioning AV fistula * Thrombocytopenia * Abnormal LFTs Recommendations * Continue hemodialysis on Mondays, Wednesdays and Fridays schedule for now * Patient is status post permanent pacemaker placement * She had angiogram and angioplasty done of her AV fistula by [facility] vascular * Adjust diet and meds for ESRD state * Procrit with dialysis * No IV, BP of any puncture in her access arm * Consider GI evaluation for her nausea and vomiting as well as abnormal LFTs Subjective Date of service: 09/25/17 Principal diagnosis: CHB Interval history: Patient is comfortable. Nausea and vomiting seems to have improved. Uneventful hemodialysis yesterday. Denies any shortness of breath. Objective - Vital Signs Vital signs: Vital Signs - 12hr 09/25/17 09/25/17 09/25/17 04:20 09:51 10:00 Temperature 98.7 F Pulse Rate 68 Respiratory 20 18 Rate Blood Pressure 162/81 Blood Pressure 158/81 [Left] O2 Sat by Pulse 96 Oximetry - General Appearance General appearance: well-developed, well-nourished, appears stated age EENT: PERRL, mucous membranes moist Neck: no JVD, no thyromegaly, no carotid bruit, supple Respiratory: Present: Clear to Ascultation Cardiology: regular, normal heart rate Gastrointestinal: normal, normoactive bowel sounds Integumentary: other (fistula in her right forearm. Good bruit and thrill) - Lab 09/23/17 05:49 09/23/17 05:49 Most recent lab results Calcium 9.7 mg/dL (8.4-10.2) 09/23/17 05:49 Phosphorus 5.30 mg/dL (2.5-4.5) H 09/23/17 05:49 Magnesium 2.10 mg/dL (1.7-2.3) 09/23/17 05:49
--- NOTE | 2017-09-25 16:17 | Gastroenterology Consultation ---
History of Present Illness - Reason for Consult Consult date: 09/25/17 intractable nausea/vomiting Requesting physician: KELLY POWELL - History of Present Illness Ms Healy is a 57 yo female with multiple co-morbidities/medical problems including complete heart block, COPD, ESRD (history of kidney transplant), CVA who has had intractable n/v since admission. Difficult to obtain history from patient but she has had recurrent episodes of n/v within a couple hours after meals. She reports chronic nausea which leads to emesis episodes. She reports chest discomfort, but no significant abd pain. She is unable to state when her last bowel movement was (over 1 week ago). She denies prior endoscopy, nsaids, or gi bleeding. Past History Past Medical History: COPD, dialysis, ESRD, hypertension, stroke Past Surgical History: Other (s/p kidney transplant) Social history: denies: smoking, alcohol abuse, prescription drug abuse Family history: hypertension Medications and Allergies Allergies Allergy/AdvReac Type Severity Reaction Status Date / Time heparin Allergy Intermediate Itching Verified 02/22/16 09:32 lisinopril AdvReac Mild COUGH Verified 02/22/16 09:32 Home Medications Medication Instructions Recorded Confirmed Last Taken Type Sertraline [Zoloft] 1 tab PO DAILY 02/22/16 09/15/17 09/14/17 History 1 Sevelamer Carbonate [Renvela] 4 tab PO TID 02/22/16 09/15/17 09/14/17 History 4 ALBUTEROL NEB's [Proventil 0.083% 2.5 mg IH TID PRN #120 nebu 09/25/17 Unknown Rx NEBS] Antacid [Alum-Mag Hydrox-Simeth 30 ml PO Q4H PRN #1 bottle 09/25/17 Unknown Rx [id number]] Fluticasone [Flonase] 1 spray NS QDAY #1 bottle 09/25/17 Unknown Rx Ipratropium [Atrovent NEB] 0.5 mg IH Q6HRT #120 nebu 09/25/17 Unknown Rx Metoprolol [Lopressor TAB] 50 mg PO BID #60 tablet 09/25/17 Unknown Rx Pantoprazole [Protonix TAB] 40 mg PO BID #60 tablet 09/25/17 Unknown Rx Sucralfate [Carafate] 1 gm PO ACHS 30 Days oral.liqd 09/25/17 Unknown Rx Tadalafil (Nf) [Adcirca (Nf)] 20 mg PO QDAY #30 tablet 09/25/17 Unknown Rx amLODIPine [Norvasc] 10 mg PO QDAY #30 tablet 09/25/17 Unknown Rx oxyCODONE /ACETAMINOPHEN [Percocet 1 tab PO Q6H PRN #14 tablet 09/25/17 Unknown Rx 5/325 mg] Active Meds: Active Medications Al Hydrox/Mg Hydrox/Simethicone (Alum-Mag Hydrox-Simeth [id number]/5ml) 30 ml PO Q4H PRN PRN Reason: Indigestion Albuterol (Proventil) 2.5 mg IH Q4HRT PRN PRN Reason: Shortness Of Breath Albuterol/Ipratropium (Duoneb *Not For Prn Use*) 1 ampul IH TIDRT [facility] Last Admin: 09/25/17 14:16 Dose: 1 ampul Amlodipine Besylate (Norvasc) 10 mg PO QDAY [facility] Last Admin: 09/25/17 09:51 Dose: 10 mg Bisacodyl (Dulcolax) 10 mg NE QDAY PRN PRN Reason: constipation unrelieved by MOM Last Admin: 09/19/17 00:22 Dose: 10 mg Dextrose (D50w (25gm) Syringe) 50 ml IV PRN PRN PRN Reason: Hypoglycemia Hydralazine HCl (Apresoline) 10 mg IV Q6HR PRN PRN Reason: Systolic B/p greather than 160 Last Admin: 09/24/17 11:09 Dose: 10 mg Hydrophilic Ointment (Vaseline Lip Therapy) 1 applic TP DIRECT PRN PRN Reason: DRY LIPS Sodium Chloride (Nacl 0.9%) 100 mls @ 999 mls/hr IV NANNETTE PRN PRN Reason: Hypotension Magnesium Hydroxide (Milk Of Magnesia) 30 ml PO Q4H PRN PRN Reason: Constipation Last Admin: 09/19/17 01:01 Dose: 30 ml Metoprolol Tartrate (Lopressor) 50 mg PO BID [facility] Last Admin: 09/25/17 09:51 Dose: 50 mg Ondansetron HCl (Zofran) 4 mg IV Q4H PRN PRN Reason: Nausea And Vomiting Last Admin: 09/24/17 10:11 Dose: 4 mg Oxycodone/Acetaminophen (Percocet 5/325) 1 tab PO Q6H PRN PRN Reason: Pain Last Admin: 09/25/17 09:52 Dose: 1 tab Pantoprazole Sodium (Protonix) 40 mg PO BID CATHY Last Admin: 09/25/17 09:51 Dose: 40 mg Sodium Polystyrene Sulfonate (Kionex) 15 gm PO Q6HR PRN PRN Reason: Hyperkalemia Sucralfate (Carafate) 1 gm PO ACHS [facility] Last Admin: 09/25/17 08:23 Dose: 1 gm Review of Systems - Review of Systems ROS unobtainable: due to mental status Exam - Constitutional Vital Signs: Temp Pulse Resp BP Pulse Ox 98.7 F 68 18 162/81 96 09/25/17 04:20 09/25/17 04:20 09/25/17 10:00 09/25/17 09:51 09/25/17 04:20 General appearance: no acute distress, other (chronically ill appearing female, thin) - EENT Eyes: PERRL, scleral icterus - Respiratory Respiratory effort: normal Respiratory: bilateral: CTA - Cardiovascular Rhythm: regular Heart Sounds: Present: S1 & S2 Extremities: No edema - Gastrointestinal General gastrointestinal: Present: soft, non-tender, non-distended - Labs CBC & Chem 7: 09/26/17 05:51 09/26/17 05:51 Assessment and Plan 1. Intractable nausea/vomiting - unclear etiology, may be 2/2 multiple other medical issues. plan for EGD tomorrow to r/o PUD or GOO. Constipation may be contributing as well. 2. Elevated liver enzymes: mixed pattern but primarily hepatocellular elevation. viral hep serologies neg. obtain RUQ US to r/o signs of possible biliary obstruction/dilatation which may be causing symptoms.
--- NOTE | 2017-09-25 16:36 | Progress Note ---
Assessment and Plan - Patient Problems (1) Chronic respiratory failure with hypoxia Current Visit: Yes Status: Acute Plan to address problem: Continue with supplemental oxygen to keep O2 sats>92% Bronchodilaotrs prn (2) Pulmonary hypertension Current Visit: Yes Status: Acute Plan to address problem: Resume home medications (3) CHB (complete heart block) Current Visit: Yes Status: Acute Plan to address problem: s/p permanent pacemaker placement Cardiology monitoring (4) ESRD (end stage renal disease) Current Visit: Yes Status: Acute Plan to address problem: Failed renal transplant. HD per renal service (5) Hypertension Current Visit: Yes Status: Acute Plan to address problem: Blood pressure medications and control per primary Attending (6) Thrombocytopenia Current Visit: Yes Status: Acute Plan to address problem: Monitor counts closely. Monitor for bleeding Subjective Date of service: 09/25/17 Principal diagnosis: CHB Interval history: s/p Permanent pacemaker placement Seen and examined. Vitals, labs, medications, chart reviewed. No acute overnight events. She denies any cough no shortness of breath. Denies any dizziness or vertigo Has had intractable nausea and vomiting. Currently being evaluated by GI service Objective - Exam Narrative Exam: General.: Appears well, no distress, nontoxic HEENT: Moist mucous membranes, extraocular muscles intact, no lymphadenopathy Neck: supple Cardiac: S1-S2 heard Lungs: clear to auscultation bilaterally Abdomen: soft , nontender, nondistended, bowel sounds positive Extremities: no edema clubbing or cyanosis Skin: no rash or lesions Neurologic: no gross focal deficits Psych: appropriate behavior, appropriate mood, corporative, judgment intact Vital Signs - 12hr 09/25/17 09/25/17 09:51 10:00 Respiratory 18 Rate Blood Pressure 162/81 Constitutional: no acute distress, asleep Eyes: non-icteric ENT: oropharynx moist Neck: supple, no lymphadenopathy, no JVD, other (No thyromegaly) Effort: normal Ascultation: Bilateral: clear, diminished breath sounds Percussion: Bilateral: not dull Cardiovascular: other (S1,S2 no murmurs, active precordium) Gastrointestinal: normoactive bowel sounds, soft, non-tender, non-distended Integumentary: normal, other (right forearm AV-graft) Extremities: no cyanosis, no edema, pulses normal, no ischemia or petechiae Neurologic: normal mental status, non-focal exam, pupils equal and round Psychiatric: mood appropriate, affect normal, other (In deep sleep.) CBC and BMP: 09/26/17 05:51 09/26/17 05:51 ABG, PT/INR, D-dimer: ABG POC ABG pH 7.361 (7.35-7.45) 09/15/17 22:00 POC ABG pCO2 40.1 (35-45) 09/15/17 22:00 POC ABG pO2 56 (80-105) L 09/15/17 22:00 POC ABG HCO3 22.7 09/15/17 22:00 POC ABG Total CO2 24 09/15/17 22:00 POC ABG O2 Sat 88 09/15/17 22:00 PT/INR, D-dimer PT 14.5 Sec. (12.2-14.9) 09/18/17 04:15 INR 1.07 (0.87-1.13) 09/18/17 04:15 Abnormal lab findings: Abnormal Labs 09/15/17 09/15/17 09/15/17 13:44 13:44 13:44 RDW 16.8 H Plt Count 86 L Lymph % (Auto) [place] % (Auto) Lymph # 0.9 L Seg Neutrophils % 72.2 H Seg Neuts % (Manual) Lymphocytes % (Manual) Seg Neutrophils # Seg Neutrophils # Man Lymphocytes # (Manual) PT 16.3 H INR 1.24 H APTT 37.3 H POC ABG pO2 Potassium Chloride 107.2 H Carbon Dioxide 19 L BUN 58 H Creatinine 9.6 H Glucose 173 H POC Glucose Phosphorus Magnesium 2.40 H Total Bilirubin AST ALT Total Protein 5.3 L Albumin 3.3 L Lipase 09/15/17 09/16/17 09/16/17 22:00 04:04 07:35 RDW Plt Count Lymph % (Auto) [place] % (Auto) Lymph # Seg Neutrophils % Seg Neuts % (Manual) Lymphocytes % (Manual) Seg Neutrophils # Seg Neutrophils # Man Lymphocytes # (Manual) PT INR APTT POC ABG pO2 56 L Potassium Chloride Carbon Dioxide 20 L BUN 65 H Creatinine 10.5 H Glucose POC Glucose 62 L Phosphorus Magnesium 2.50 H Total Bilirubin AST ALT Total Protein Albumin Lipase 09/16/17 09/16/17 09/17/17 08:44 23:31 01:13 RDW Plt Count Lymph % (Auto) [place] % (Auto) Lymph # Seg Neutrophils % Seg Neuts % (Manual) Lymphocytes % (Manual) Seg Neutrophils # Seg Neutrophils # Man Lymphocytes # (Manual) PT INR APTT POC ABG pO2 Potassium Chloride Carbon Dioxide BUN Creatinine Glucose POC Glucose 143 H 66 L 118 H Phosphorus Magnesium Total Bilirubin AST ALT Total Protein Albumin Lipase 09/17/17 09/17/17 09/17/17 05:46 11:13 11:13 RDW 15.9 H Plt Count 72 L Lymph % (Auto) [place] % (Auto) Lymph # Seg Neutrophils % Seg Neuts % (Manual) Lymphocytes % (Manual) Seg Neutrophils # Seg Neutrophils # Man Lymphocytes # (Manual) PT INR APTT POC ABG pO2 Potassium 5.2 H Chloride Carbon Dioxide 21 L BUN 49 H Creatinine 10.1 H Glucose POC Glucose 67 L Phosphorus Magnesium Total Bilirubin AST ALT Total Protein Albumin Lipase 09/17/17 09/18/17 09/18/17 17:36 04:15 04:15 RDW 16.3 H Plt Count 71 L Lymph % (Auto) [place] % (Auto) 11.1 H Lymph # 1.0 L Seg Neutrophils % 70.3 H Seg Neuts % (Manual) Lymphocytes % (Manual) Seg Neutrophils # Seg Neutrophils # Man Lymphocytes # (Manual) PT INR APTT POC ABG pO2 Potassium 5.3 H Chloride 95.3 L Carbon Dioxide BUN 28 H Creatinine 6.3 H Glucose 123 H POC Glucose 118 H Phosphorus Magnesium Total Bilirubin AST ALT Total Protein Albumin Lipase 09/18/17 09/19/17 09/20/17 05:14 11:23 09:11 RDW 15.8 H Plt Count 46 L Lymph % (Auto) 6.9 L [place] % (Auto) Lymph # 0.7 L Seg Neutrophils % 86.3 H Seg Neuts % (Manual) Lymphocytes % (Manual) Seg Neutrophils # 9.4 H Seg Neutrophils # Man Lymphocytes # (Manual) PT INR APTT POC ABG pO2 Potassium Chloride Carbon Dioxide BUN Creatinine Glucose POC Glucose 116 H 121 H Phosphorus Magnesium Total Bilirubin AST ALT Total Protein Albumin Lipase 09/20/17 09/21/17 09/22/17 09:11 08:02 06:37 RDW 15.6 H Plt Count 52 L Lymph % (Auto) [place] % (Auto) Lymph # Seg Neutrophils % Seg Neuts % (Manual) Lymphocytes % (Manual) Seg Neutrophils # Seg Neutrophils # Man Lymphocytes # (Manual) PT INR APTT POC ABG pO2 Potassium 5.9 H D Chloride 95.2 L 93.9 L Carbon Dioxide 18 L 21 L BUN 52 H 72 H Creatinine 6.6 H 8.2 H Glucose 112 H POC Glucose Phosphorus 8.10 H Magnesium Total Bilirubin AST ALT Total Protein Albumin Lipase 67 H 09/22/17 09/23/17 09/23/17 06:37 05:49 05:49 RDW 16.1 H Plt Count 53 L Lymph % (Auto) [place] % (Auto) Lymph # Seg Neutrophils % Seg Neuts % (Manual) 81.0 H Lymphocytes % (Manual) 7.0 L Seg Neutrophils # Seg Neutrophils # Man 7.9 H Lymphocytes # (Manual) 0.7 L PT INR APTT POC ABG pO2 Potassium Chloride 94.4 L 90.8 L Carbon Dioxide BUN 95 H 61 H Creatinine 10.2 H 7.3 H Glucose 104 H 112 H POC Glucose Phosphorus 5.30 H Magnesium Total Bilirubin 1.30 H AST 533 H ALT 143 H Total Protein 5.9 L Albumin 3.8 L Lipase Allied health notes reviewed: nursing
[2017-09-26 06:20] LABS: Basophils % (Auto) 0.6 % (0.0-1.8); Eosinophils # (Auto) 0.2 K/mm3 (0.0-0.4); Eosinophils % (Auto) 3.2 % (0.0-4.3); Hematocrit 35.4 % (30.3-42.9); Hemoglobin 11.4 gm/dl (10.1-14.3); Lymphocytes % (Auto) 15.2 % (13.4-35.0); Mean Corpuscular HGB Conc 32 % (30-34); Mean Corpuscular Hemoglobin 31 pg (28-32); Mean Corpuscular Volume 95 fl (79-97); Monocytes % (Auto) 14.9 % (0.0-7.3); Red Blood Count 3.72 M/mm3 (3.65-5.03); Red Cell Distribution Width 17.1 % (13.2-15.2)
[2017-09-26 06:26] LABS: Platelet Count 45 K/mm3 (140-440)
[2017-09-26] MEDS: CARAFATE PO SCH ×4 (07:51→22:05)
[2017-09-26 08:43] LABS: Calcium 9.7 mg/dL (8.4-10.2)
[2017-09-26] MEDS: DUONEB *Not for PRN Use IH SCH ×3 (09:54→21:22)
[2017-09-26] MEDS: LOPRESSOR PO SCH ×2 (10:00→22:02)
[2017-09-26] MEDS: PROTONIX PO SCH ×2 (10:00→22:02)
[2017-09-26] MEDS ORDERED: WATER FOR IRRIG STERILE IR ONE ×2 (11:34→14:50)
[2017-09-26] MEDS ORDERED: NACL 0.9% 1000 ML 1,000 ML ONE (11:34)
[2017-09-26] MEDS ORDERED: WATER FOR IRRIG STERILE ONE (11:35)
--- NOTE | 2017-09-26 12:26 | Progress Note ---
Assessment and Plan Impression * End-stage renal disease on maintenance hemodialysis * Complete heart block * Hypertension * Anemia secondary to ESRD * Nausea and vomiting * Malfunctioning AV fistula * Thrombocytopenia * Abnormal LFTs Recommendations * Continue hemodialysis on Mondays, Wednesdays and Fridays schedule for now * Patient is status post permanent pacemaker placement * She had angiogram and angioplasty done of her AV fistula by [facility] vascular * Adjust diet and meds for ESRD state * Procrit with dialysis * No IV, BP of any puncture in her access arm * Her LFTs seems to have improved significantly. Etiology unclear. * She is also noted to have thrombocytopenia. Consider hematology evaluation Subjective Date of service: 09/26/17 Principal diagnosis: CHB Interval history: Patient states that she did have some nausea yesterday which has improved. Denies any shortness of breath. Currently undergoing dialysis which she is tolerating well Objective - Vital Signs Vital signs: Vital Signs - 12hr 09/26/17 09/26/17 09/26/17 04:31 07:00 07:53 Temperature 99.3 F Pulse Rate 63 60 70 Respiratory 20 Rate Blood Pressure 178/85 O2 Sat by Pulse 95 94 Oximetry 09/26/17 09/26/17 09/26/17 11:00 11:15 11:20 Temperature 98.5 F Pulse Rate 69 65 65 Respiratory 16 Rate Blood Pressure 196/105 193/101 192/101 O2 Sat by Pulse Oximetry - General Appearance General appearance: well-developed, well-nourished, appears stated age EENT: PERRL, mucous membranes moist Neck: no JVD, no thyromegaly, no carotid bruit, supple Respiratory: Present: Clear to Ascultation Cardiology: regular, normal heart rate Gastrointestinal: normal, normoactive bowel sounds Integumentary: other (AV fistula in her right forearm. Cannulated for dialysis) - Lab 09/26/17 05:51 09/26/17 05:51 Most recent lab results Calcium 9.7 mg/dL (8.4-10.2) 09/26/17 05:51 Phosphorus 5.30 mg/dL (2.5-4.5) H 09/23/17 05:49 Magnesium 2.10 mg/dL (1.7-2.3) 09/23/17 05:49
[2017-09-26] MEDS: APRESOLINE IV PRN (12:37)
--- NOTE | 2017-09-26 14:27 | Progress Note ---
Assessment and Plan - Patient Problems (1) Chronic respiratory failure with hypoxia Current Visit: Yes Status: Acute Plan to address problem: Continue with supplemental oxygen to keep O2 sats>92% Bronchodilaotrs prn (2) Pulmonary hypertension Current Visit: Yes Status: Acute Plan to address problem: Resume home medications (3) CHB (complete heart block) Current Visit: Yes Status: Acute Plan to address problem: s/p permanent pacemaker placement Cardiology monitoring (4) ESRD (end stage renal disease) Current Visit: Yes Status: Acute Plan to address problem: Failed renal transplant. HD per renal service (5) Hypertension Current Visit: Yes Status: Acute Plan to address problem: Blood pressure medications and control per primary Attending (6) Thrombocytopenia Current Visit: Yes Status: Acute Plan to address problem: Monitor counts closely. Monitor for bleeding Hematology consult-defer primary service Subjective Date of service: 09/26/17 Principal diagnosis: CHB Interval history: s/p Permanent pacemaker placement Seen and examined. Vitals, labs, medications, chart reviewed. No acute overnight events. She denies any cough no shortness of breath. Denies any dizziness or vertigo Nausea much better today s/p EGD findings and recommendations as documented. Impression: 1. Mild erythematous gastric mucosa 2. Pseudomelanosis of duodenum No signs of gastric outlet obstruction or peptic ulcer disease. Recommendations: -okay to restart diet and advance as tolerated -nutrition consult -suspect nausea/vomiting 2/2 other medical conditions/complications, however would consider gastric emptying study if symptoms persists -supportive care/anti-emetics per primary team Objective - Exam Narrative Exam: General.: Appears well, no distress, nontoxic HEENT: Moist mucous membranes, extraocular muscles intact, no lymphadenopathy Neck: supple Cardiac: S1-S2 heard Lungs: clear to auscultation bilaterally Abdomen: soft , nontender, nondistended, bowel sounds positive Extremities: no edema clubbing or cyanosis Skin: no rash or lesions Neurologic: no gross focal deficits Psych: appropriate behavior, appropriate mood, corporative, judgment intact Vital Signs - 12hr 09/26/17 09/26/17 09/26/17 04:31 07:00 07:53 Temperature 99.3 F Pulse Rate 63 60 70 Respiratory 20 Rate Blood Pressure 178/85 O2 Sat by Pulse 95 94 Oximetry 09/26/17 09/26/17 09/26/17 11:00 11:15 11:30 Temperature 98.5 F Pulse Rate 69 65 65 Respiratory 16 Rate Blood Pressure 196/105 193/101 192/101 O2 Sat by Pulse Oximetry 09/26/17 09/26/17 09/26/17 11:45 12:00 12:15 Temperature Pulse Rate 65 61 63 Respiratory Rate Blood Pressure 202/99 178/103 206/102 O2 Sat by Pulse Oximetry 09/26/17 09/26/17 09/26/17 12:30 12:37 12:45 Temperature Pulse Rate 65 63 66 Respiratory Rate Blood Pressure 190/98 206/102 170/83 O2 Sat by Pulse Oximetry 09/26/17 09/26/17 09/26/17 13:00 13:15 14:15 Temperature Pulse Rate 63 65 66 Respiratory Rate Blood Pressure 159/84 148/77 158/82 O2 Sat by Pulse Oximetry Constitutional: no acute distress, asleep Eyes: non-icteric ENT: oropharynx moist Neck: supple, no lymphadenopathy, no JVD, other (No thyromegaly) Effort: normal Ascultation: Bilateral: clear, diminished breath sounds Percussion: Bilateral: not dull Cardiovascular: other (S1,S2 no murmurs, active precordium) Gastrointestinal: normoactive bowel sounds, soft, non-tender, non-distended Integumentary: normal, other (right forearm AV-graft) Extremities: no cyanosis, no edema, pulses normal, no ischemia or petechiae Neurologic: normal mental status, non-focal exam, pupils equal and round Psychiatric: mood appropriate, affect normal, other (In deep sleep.) CBC and BMP: 09/26/17 05:51 09/26/17 05:51 ABG, PT/INR, D-dimer: ABG POC ABG pH 7.361 (7.35-7.45) 09/15/17 22:00 POC ABG pCO2 40.1 (35-45) 09/15/17 22:00 POC ABG pO2 56 (80-105) L 09/15/17 22:00 POC ABG HCO3 22.7 09/15/17 22:00 POC ABG Total CO2 24 09/15/17 22:00 POC ABG O2 Sat 88 09/15/17 22:00 PT/INR, D-dimer PT 14.5 Sec. (12.2-14.9) 09/18/17 04:15 INR 1.07 (0.87-1.13) 09/18/17 04:15 Abnormal lab findings: Abnormal Labs 09/15/17 09/15/17 09/15/17 13:44 13:44 13:44 RDW 16.8 H Plt Count 86 L Lymph % (Auto) [place] % (Auto) Lymph # 0.9 L [place] # Seg Neutrophils % 72.2 H Seg Neuts % (Manual) Lymphocytes % (Manual) Seg Neutrophils # Seg Neutrophils # Man Lymphocytes # (Manual) PT 16.3 H INR 1.24 H APTT 37.3 H POC ABG pO2 Potassium Chloride 107.2 H Carbon Dioxide 19 L BUN 58 H Creatinine 9.6 H Glucose 173 H POC Glucose Phosphorus Magnesium 2.40 H Total Bilirubin AST ALT Total Protein 5.3 L Albumin 3.3 L Lipase 09/15/17 09/16/17 09/16/17 22:00 04:04 07:35 RDW Plt Count Lymph % (Auto) [place] % (Auto) Lymph # [place] # Seg Neutrophils % Seg Neuts % (Manual) Lymphocytes % (Manual) Seg Neutrophils # Seg Neutrophils # Man Lymphocytes # (Manual) PT INR APTT POC ABG pO2 56 L Potassium Chloride Carbon Dioxide 20 L BUN 65 H Creatinine 10.5 H Glucose POC Glucose 62 L Phosphorus Magnesium 2.50 H Total Bilirubin AST ALT Total Protein Albumin Lipase 09/16/17 09/16/17 09/17/17 08:44 23:31 01:13 RDW Plt Count Lymph % (Auto) [place] % (Auto) Lymph # [place] # Seg Neutrophils % Seg Neuts % (Manual) Lymphocytes % (Manual) Seg Neutrophils # Seg Neutrophils # Man Lymphocytes # (Manual) PT INR APTT POC ABG pO2 Potassium Chloride Carbon Dioxide BUN Creatinine Glucose POC Glucose 143 H 66 L 118 H Phosphorus Magnesium Total Bilirubin AST ALT Total Protein Albumin Lipase 09/17/17 09/17/17 09/17/17 05:46 11:13 11:13 RDW 15.9 H Plt Count 72 L Lymph % (Auto) [place] % (Auto) Lymph # [place] # Seg Neutrophils % Seg Neuts % (Manual) Lymphocytes % (Manual) Seg Neutrophils # Seg Neutrophils # Man Lymphocytes # (Manual) PT INR APTT POC ABG pO2 Potassium 5.2 H Chloride Carbon Dioxide 21 L BUN 49 H Creatinine 10.1 H Glucose POC Glucose 67 L Phosphorus Magnesium Total Bilirubin AST ALT Total Protein Albumin Lipase 09/17/17 09/18/17 09/18/17 17:36 04:15 04:15 RDW 16.3 H Plt Count 71 L Lymph % (Auto) [place] % (Auto) 11.1 H Lymph # 1.0 L [place] # Seg Neutrophils % 70.3 H Seg Neuts % (Manual) Lymphocytes % (Manual) Seg Neutrophils # Seg Neutrophils # Man Lymphocytes # (Manual) PT INR APTT POC ABG pO2 Potassium 5.3 H Chloride 95.3 L Carbon Dioxide BUN 28 H Creatinine 6.3 H Glucose 123 H POC Glucose 118 H Phosphorus Magnesium Total Bilirubin AST ALT Total Protein Albumin Lipase 09/18/17 09/19/17 09/20/17 05:14 11:23 09:11 RDW 15.8 H Plt Count 46 L Lymph % (Auto) 6.9 L [place] % (Auto) Lymph # 0.7 L [place] # Seg Neutrophils % 86.3 H Seg Neuts % (Manual) Lymphocytes % (Manual) Seg Neutrophils # 9.4 H Seg Neutrophils # Man Lymphocytes # (Manual) PT INR APTT POC ABG pO2 Potassium Chloride Carbon Dioxide BUN Creatinine Glucose POC Glucose 116 H 121 H Phosphorus Magnesium Total Bilirubin AST ALT Total Protein Albumin Lipase 09/20/17 09/21/17 09/22/17 09:11 08:02 06:37 RDW 15.6 H Plt Count 52 L Lymph % (Auto) [place] % (Auto) Lymph # [place] # Seg Neutrophils % Seg Neuts % (Manual) Lymphocytes % (Manual) Seg Neutrophils # Seg Neutrophils # Man Lymphocytes # (Manual) PT INR APTT POC ABG pO2 Potassium 5.9 H D Chloride 95.2 L 93.9 L Carbon Dioxide 18 L 21 L BUN 52 H 72 H Creatinine 6.6 H 8.2 H Glucose 112 H POC Glucose Phosphorus 8.10 H Magnesium Total Bilirubin AST ALT Total Protein Albumin Lipase 67 H 09/22/17 09/23/17 09/23/17 06:37 05:49 05:49 RDW 16.1 H Plt Count 53 L Lymph % (Auto) [place] % (Auto) Lymph # [place] # Seg Neutrophils % Seg Neuts % (Manual) 81.0 H Lymphocytes % (Manual) 7.0 L Seg Neutrophils # Seg Neutrophils # Man 7.9 H Lymphocytes # (Manual) 0.7 L PT INR APTT POC ABG pO2 Potassium Chloride 94.4 L 90.8 L Carbon Dioxide BUN 95 H 61 H Creatinine 10.2 H 7.3 H Glucose 104 H 112 H POC Glucose Phosphorus 5.30 H Magnesium Total Bilirubin 1.30 H AST 533 H ALT 143 H Total Protein 5.9 L Albumin 3.8 L Lipase 09/26/17 09/26/17 05:51 05:51 RDW 17.1 H Plt Count 45 L Lymph % (Auto) [place] % (Auto) 14.9 H Lymph # 1.0 L [place] # 1.0 H Seg Neutrophils % Seg Neuts % (Manual) Lymphocytes % (Manual) Seg Neutrophils # Seg Neutrophils # Man Lymphocytes # (Manual) PT INR APTT POC ABG pO2 Potassium Chloride 94.5 L Carbon Dioxide 21 L BUN 60 H Creatinine 7.1 H Glucose POC Glucose Phosphorus Magnesium Total Bilirubin 1.70 H AST 84 H ALT Total Protein 6.0 L Albumin 3.0 L Lipase Allied health notes reviewed: nursing
--- NOTE | 2017-09-26 15:23 | Anesthesia Day of Surgery ---
Anesthesia Day of Surgery - Day of Surgery Patient Examined: Yes Patient H&P Reviewed: Yes Patient is NPO: Yes
--- NOTE | 2017-09-26 15:26 | Anesthesia Consultation ---
Anesthesia Consult and Med Hx Date of service: 09/26/17 - Airway Anesthetic Teeth Evaluation: Poor ROM Head & Neck: Adequate Mental/Hyoid Distance: Adequate Mallampati Class: Class II Intubation Access Assessment: Probably Good - Pulmonary Exam CTA: Yes - Cardiac Exam Cardiac Exam: RRR - Pre-Operative Health Status ASA Pre-Surgery Classification: ASA4 Proposed Anesthetic Plan: MAC - Pulmonary Hx Smoking: No Hx Respiratory Symptoms: Yes (Chronic Respiratory Failure) COPD: Yes Home Oxygen Therapy: Yes (3 L) - Cardiovascular System Hx Hypertension: Yes (CHF) Hx Cardia Arrhythmia: Yes (Complete Heart Block) Hx Pacemaker: Yes - Central Nervous System CVA: Yes (2011) Hx Psychiatric Problems: Yes (Encephalopathy) - Endocrine Hx Renal Disease: (KIDNEY TRANSPLANT MARGARET 2000) Hx End Stage Renal Disease: Yes - Hematic Hx Anemia: Yes - Other Systems Hx Cancer: No - Additional Comments Anesthesia Medical History Comments: Pulmonary HTN
[2017-09-26] MEDS ORDERED: AMIDATE IV ONE (15:31)
--- NOTE | 2017-09-26 15:46 | Post Operative Note ---
Pre-op diagnosis: intractable nausea/vomiting Post-op diagnosis: other (mild erythematous mucosa in gastric body, small- moderate amount of retained liquid in stomach (suctioned), pseudomelanosis of duodenum) Findings: EGD: 1. mild erythematous gastric mucosa, small amt of retained liquid in stomach ( suctioned) 2. pseudomelanosis of duodenum (mild) No signs of gastric outlet obstruction or peptic ulcer disease. Procedure: EGD Anesthesia: MAC Surgeon: JOSE ALBERTO BARTHOLOMEW Estimated blood loss: none Pathology: none Condition: stable Disposition: floor
--- NOTE | 2017-09-26 15:53 | Operative Report ---
Operative Report Operative Report: Esophagogastroduodenoscopy with Biopsies Date of procedure: 09/26/2017 Endoscopist: Eddie Watkins Pre-op indication: intractable nausea/vomiting Post-op findings: mild erythematous gastric mucosa, pseudomelanosis of duodenum Anesthesia/Medications: MAC Estimated Blood Loss: none Complications: No immediate complications Procedure: After consent was obtained (from patient's sister), the patent was placed in the left lateral decubitus position. The [employer] upper endoscope was inserted into the patient's mouth under direct vision, and advanced to the 2nd portion of duodenum without difficulty. The views of the mucosa were good. The patient tolerated the procedure fairly well. The patient's vital signs were monitored continuously throughout the procedure. Findings: The esophagus appeared normal. There was mild erythematous mucosa in gastric body and small amount of retained liquid which was suctioned. Otherwise, the stomach appeared normal. Biopsies not obtained given thrombocytopenia. Mild pseudomelanosis of duodenum, otherwise the duodenum appeared normal. Impression: 1. Mild erythematous gastric mucosa 2. Pseudomelanosis of duodenum No signs of gastric outlet obstruction or peptic ulcer disease. Recommendations: -okay to restart diet and advance as tolerated -nutrition consult -suspect nausea/vomiting 2/2 other medical conditions/complications, however would consider gastric emptying study if symptoms persists -supportive care/anti-emetics per primary team
--- NOTE | 2017-09-26 16:19 | Post Anesthesia Evaluation ---
- Post Anesthesia Evaluation Patient Participated: Yes Airway Patent: Yes Stable Respiratory Function: Yes Nausea/Vomiting: No Temp > 96.8F: Yes Pain Manageable: Yes Adequeate Hydration: Yes Anesthesia Complications: No Block Receding Appropriately: Not Applicable Patient on Ventilator: No
[2017-09-26] MEDS: PERCOCET 5/325 PO PRN (22:01)
[2017-09-26] MEDS: PROCARDIA XL PO SCH (22:02)
[2017-09-26] MEDS: ZOFRAN IV PRN (22:02)
--- NOTE | 2017-09-27 01:22 | Ultrasound Report ---
FINAL REPORT EXAM: US ABDOMEN LIMITED HISTORY: elevated liver enzymes TECHNIQUE: Routine imaging was obtained of the right upper outer quadrant. FINDINGS: The gallbladder is normal in size and reveals generalized wall thickening measuring 3.2 millimeters in thickness. There are multiple dependent stones in the gallbladder. A Saenz sign was not elicited when scanning over the gallbladder. The common bile duct is normal caliber at 2.4 millimeters. The liver is normal size and reveals increased echotexture suggesting fatty change. The pancreas is not well visualized because of bowel gas. The right kidney is atrophic. IMPRESSION: Cholelithiasis with generalized gallbladder wall thickening. Underlying chronic cholecystitis cannot be excluded. A Saenz sign was not elicited. Increased echotexture of the liver suggesting fatty change. Normal biliary tree. Atrophic right kidney.
--- NOTE | 2017-09-27 07:51 | Hem/Onc Consultation ---
History of Present Illness - Reason for Consult Consult date: 09/27/17 - History of Present Illness Ms Healy is a 57 yo female with multiple co-morbidities/medical problems including complete heart block, COPD, ESRD (history of kidney transplant), CVA. Recent CHB, pacemaker placed last week. intractable n/v since admission with EGD showing no obvious cause. She reports chest discomfort, but no significant abd pain. She denies GI bleeding. Patient has had low platelets since admission. Patient had kidney transplant 10 years ago but that failed 5 years ago and she has been on dialysis since then. Past History Past Medical History: COPD, dialysis, ESRD, hypertension, stroke Past Surgical History: Other (s/p kidney transplant) Social history: denies: smoking, alcohol abuse, prescription drug abuse Family history: hypertension Medications and Allergies Allergies Allergy/AdvReac Type Severity Reaction Status Date / Time heparin Allergy Intermediate Itching Verified 02/22/16 09:32 lisinopril AdvReac Mild COUGH Verified 02/22/16 09:32 Home Medications Medication Instructions Recorded Confirmed Last Taken Type Sertraline [Zoloft] 1 tab PO DAILY 02/22/16 09/15/17 09/14/17 History 1 Sevelamer Carbonate [Renvela] 4 tab PO TID 02/22/16 09/15/17 09/14/17 History 4 ALBUTEROL NEB's [Proventil 0.083% 2.5 mg IH TID PRN #120 nebu 09/25/17 Unknown Rx NEBS] Antacid [Alum-Mag Hydrox-Simeth 30 ml PO Q4H PRN #1 bottle 09/25/17 Unknown Rx [id number]] Fluticasone [Flonase] 1 spray NS QDAY #1 bottle 09/25/17 Unknown Rx Ipratropium [Atrovent NEB] 0.5 mg IH Q6HRT #120 nebu 09/25/17 Unknown Rx Metoprolol [Lopressor TAB] 50 mg PO BID #60 tablet 09/25/17 Unknown Rx Pantoprazole [Protonix TAB] 40 mg PO BID #60 tablet 09/25/17 Unknown Rx Sucralfate [Carafate] 1 gm PO ACHS 30 Days oral.liqd 09/25/17 Unknown Rx Tadalafil (Nf) [Adcirca (Nf)] 20 mg PO QDAY #30 tablet 09/25/17 Unknown Rx amLODIPine [Norvasc] 10 mg PO QDAY #30 tablet 09/25/17 Unknown Rx oxyCODONE /ACETAMINOPHEN [Percocet 1 tab PO Q6H PRN #14 tablet 09/25/17 Unknown Rx 5/325 mg] Active Meds: Active Medications Al Hydrox/Mg Hydrox/Simethicone (Alum-Mag Hydrox-Simeth [id number]/5ml) 30 ml PO Q4H PRN PRN Reason: Indigestion Albuterol (Proventil) 2.5 mg IH Q4HRT PRN PRN Reason: Shortness Of Breath Albuterol/Ipratropium (Duoneb *Not For Prn Use*) 1 ampul IH TIDRT [facility] Last Admin: 09/26/17 21:22 Dose: 1 ampul Bisacodyl (Dulcolax) 10 mg MA QDAY PRN PRN Reason: constipation unrelieved by MOM Last Admin: 09/19/17 00:22 Dose: 10 mg Dextrose (D50w (25gm) Syringe) 50 ml IV PRN PRN PRN Reason: Hypoglycemia Hydralazine HCl (Apresoline) 10 mg IV Q6HR PRN PRN Reason: Systolic B/p greather than 160 Last Admin: 09/26/17 12:37 Dose: 10 mg Hydrophilic Ointment (Vaseline Lip Therapy) 1 applic TP DIRECT PRN PRN Reason: DRY LIPS Sodium Chloride (Nacl 0.9%) 100 mls @ 999 mls/hr IV NANNETTE PRN PRN Reason: Hypotension Magnesium Hydroxide (Milk Of Magnesia) 30 ml PO Q4H PRN PRN Reason: Constipation Last Admin: 09/19/17 01:01 Dose: 30 ml Metoprolol Tartrate (Lopressor) 50 mg PO BID [facility] Last Admin: 09/26/17 22:02 Dose: 50 mg Nifedipine (Procardia Xl) 60 mg PO QDAY [facility] Last Admin: 09/26/17 22:02 Dose: 60 mg Ondansetron HCl (Zofran) 4 mg IV Q4H PRN PRN Reason: Nausea And Vomiting Last Admin: 09/26/17 22:02 Dose: 4 mg Oxycodone/Acetaminophen (Percocet 5/325) 1 tab PO Q6H PRN PRN Reason: Pain Last Admin: 09/26/17 22:01 Dose: 1 tab Pantoprazole Sodium (Protonix) 40 mg PO BID CATHY Last Admin: 09/26/17 22:02 Dose: 40 mg Sodium Polystyrene Sulfonate (Kionex) 15 gm PO Q6HR PRN PRN Reason: Hyperkalemia Sucralfate (Carafate) 1 gm PO ACHS CATHY Last Admin: 09/26/17 22:05 Dose: 1 gm Review of Systems All systems: negative (abdominal pain and nausea.) Exam - Constitutional Vitals: Last Vital Signs Temp 98.5 F 09/27/17 03:33 Pulse 63 09/27/17 03:33 Resp 18 09/27/17 03:33 BP 124/62 09/27/17 03:33 Pulse Ox 96 09/27/17 03:33 General appearance: no acute distress - EENT Eyes: PERRL, EOM intact ENT: hearing intact Lymph node exam: negative cervical, negative supraclavicular, negative axillary - Neck Neck: supple - Respiratory Respiratory effort: Positive: normal Respiratory: bilateral: CTA - Cardiovascular Rhythm: regular Heart Sounds: Present: S1 & S2 (new pacemaker in place) - Gastrointestinal General gastrointestinal: Present: tender (over the Rt side) - Integumentary Integumentary: clear, warm - Musculoskeletal Musculoskeletal: strength equal bilaterally Results - Labs lab Results: Laboratory Results - last 24 hr 09/26/17 05:51 Sodium 138 Potassium 4.0 Chloride 94.5 L Carbon Dioxide 21 L Anion Gap 27 BUN 60 H Creatinine 7.1 H Estimated GFR 6 BUN/Creatinine Ratio 8 Glucose 85 Calcium 9.7 Total Bilirubin 1.70 H AST 84 H ALT 25 Alkaline Phosphatase 76 Total Protein 6.0 L Albumin 3.0 L Albumin/Globulin Ratio 1.0 review of the smear shows signifcant number of nucleated RBC and shift cells. platelets are decreased in number. Assessment and Plan 1-thrombocytopenia- etiology is unclear but some signs of blood loss with increased retic count or primary bone marrow disorder. will order work up and closely monitor with you. this may be recovering bone marrow. 2- ESRD on HD 3- complete heart block- s/p pacemaker 4- COPD 5- CVA 6- abdominal pain- may need further evaluation. GI on the case.
[2017-09-27] MEDS: CARAFATE PO SCH ×4 (08:29→21:40)
[2017-09-27 08:39] LABS: Basophils % (Auto) 0.7 % (0.0-1.8); Eosinophils # (Auto) 0.2 K/mm3 (0.0-0.4); Eosinophils % (Auto) 2.3 % (0.0-4.3); Hematocrit 37.9 % (30.3-42.9); Lymphocytes % (Auto) 14.2 % (13.4-35.0); Mean Corpuscular HGB Conc 32 % (30-34); Mean Corpuscular Hemoglobin 30 pg (28-32); Mean Corpuscular Volume 93 fl (79-97); Monocytes % (Auto) 14.6 % (0.0-7.3); Red Blood Count 4.06 M/mm3 (3.65-5.03); Red Cell Distribution Width 17.4 % (13.2-15.2)
[2017-09-27 08:42] LABS: Platelet Count 56 K/mm3 (140-440)
[2017-09-27] MEDS: DUONEB *Not for PRN Use IH SCH ×3 (08:45→20:10)
[2017-09-27] MEDS: PROTONIX PO SCH (10:29)
[2017-09-27] MEDS: LOPRESSOR PO SCH ×2 (10:29→21:40)
[2017-09-27] MEDS: PROCARDIA XL PO SCH (10:29)
--- NOTE | 2017-09-27 11:39 | Progress Note ---
Assessment and Plan Impression * End-stage renal disease on maintenance hemodialysis * Complete heart block * Hypertension * Anemia secondary to ESRD * Nausea and vomiting * Malfunctioning AV fistula * Thrombocytopenia * Abnormal LFTs Recommendations * Continue hemodialysis on Mondays, Wednesdays and Fridays schedule for now * Patient is status post permanent pacemaker placement * She had angiogram and angioplasty done of her AV fistula by [facility] vascular * Adjust diet and meds for ESRD state * Procrit with dialysis * No IV, BP of any puncture in her access arm * Her LFTs seems to have improved significantly. She is being followed by GI services. Workup in progress. * She is also noted to have thrombocytopenia. hematology evaluation appreciated Subjective Date of service: 09/27/17 Principal diagnosis: CHB Interval history: Patient is currently undergoing and gastric emptying study. She continues to have some nausea. Denies any shortness of breath. Uneventful dialysis yesterday Objective - Vital Signs Vital signs: Vital Signs - 12hr 09/27/17 09/27/17 09/27/17 03:33 08:44 08:49 Temperature 98.5 F Pulse Rate 63 Pulse Rate [ 65 Anterior Bilateral Throughout] Respiratory 18 Rate Respiratory 15 Rate [Anterior Bilateral Throughout] Blood Pressure 124/62 O2 Sat by Pulse 96 98 Oximetry 09/27/17 09/27/17 08:55 10:29 Temperature Pulse Rate 62 Pulse Rate [ 64 Anterior Bilateral Throughout] Respiratory Rate Respiratory 16 Rate [Anterior Bilateral Throughout] Blood Pressure 135/61 O2 Sat by Pulse Oximetry - General Appearance General appearance: well-developed, well-nourished, appears stated age EENT: PERRL, mucous membranes moist Neck: no JVD, no thyromegaly, no carotid bruit, supple Respiratory: Present: Clear to Ascultation Cardiology: regular, normal heart rate, S1S2, no murmurs Gastrointestinal: normal, normoactive bowel sounds Integumentary: no rash, other (AV fistula in her right forearm. Good bruit and thrill) - Lab 09/27/17 08:17 09/26/17 05:51 Most recent lab results Calcium 9.7 mg/dL (8.4-10.2) 09/26/17 05:51 Phosphorus 5.30 mg/dL (2.5-4.5) H 09/23/17 05:49 Magnesium 2.10 mg/dL (1.7-2.3) 09/23/17 05:49
--- NOTE | 2017-09-27 12:31 | Progress Note ---
Assessment and Plan Symptomatic Bradycardia Complete Heart Block Pulmonary HTN (Sever by 2D ECHO) Chronic Hypoxemic Resp Failure ESRD on Dialysis HTN Thrombocytopenia - s/p PPM - continue supplemental oxygen to keep sats > 90% - continue bronchodilators and pulmonary toilet - will re-introduce PD5 inhibitor therapy for Pulm HTN - optimize cardiac therapy per mud logger - continue GI evaluation - continue HD/UF per nephrology prescription - Adjust antihypertensives per nephrology - continue GI & VTE prophylaxis - follow platelet count ...re-evaluate in am & prn Subjective Date of service: 09/27/17 Principal diagnosis: Complete Heart Block; Symptomatic Bradycardia; Hypoxemic Resp Failure Interval history: Patient is seen today for: Complete Heart Block; Symptomatic Bradycardia; Hypoxemic Resp Failure Seen and examined at bedside; 24hour events reviewed; nursing and respiratory care staff consulted; no adverse overnight events reported to me; resting in bed ; denies acute chest pains; remains on supplemental oxygen; No vomiting today Objective Vital Signs - 12hr 09/27/17 09/27/17 09/27/17 03:33 08:44 08:49 Temperature 98.5 F Pulse Rate 63 Pulse Rate [ 65 Anterior Bilateral Throughout] Respiratory 18 Rate Respiratory 15 Rate [Anterior Bilateral Throughout] Blood Pressure 124/62 O2 Sat by Pulse 96 98 Oximetry 09/27/17 09/27/17 08:55 10:29 Temperature Pulse Rate 62 Pulse Rate [ 64 Anterior Bilateral Throughout] Respiratory Rate Respiratory 16 Rate [Anterior Bilateral Throughout] Blood Pressure 135/61 O2 Sat by Pulse Oximetry Constitutional: no acute distress, alert Eyes: non-icteric ENT: oropharynx moist, other (mallampatti 2) Neck: supple, no lymphadenopathy, no JVD, other (No thyromegaly) Effort: mildly labored Ascultation: Bilateral: clear, diminished breath sounds Percussion: Bilateral: not dull Cardiovascular: other (S1,S2 no murmurs, active precordium) Gastrointestinal: normoactive bowel sounds, soft, non-tender, non-distended, other (no palpable HSM) Integumentary: normal, other (right forearm AV-graft) Extremities: no cyanosis, no edema, pulses normal, no ischemia or petechiae Neurologic: normal mental status, non-focal exam, pupils equal and round, motor strength normal and Psychiatric: mood appropriate, affect normal CBC and BMP: 09/28/17 06:03 09/26/17 05:51 ABG, PT/INR, D-dimer: ABG POC ABG pH 7.361 (7.35-7.45) 09/15/17 22:00 POC ABG pCO2 40.1 (35-45) 09/15/17 22:00 POC ABG pO2 56 (80-105) L 09/15/17 22:00 POC ABG HCO3 22.7 09/15/17 22:00 POC ABG Total CO2 24 09/15/17 22:00 POC ABG O2 Sat 88 09/15/17 22:00 PT/INR, D-dimer PT 14.5 Sec. (12.2-14.9) 09/18/17 04:15 INR 1.07 (0.87-1.13) 09/18/17 04:15 Abnormal lab findings: Abnormal Labs 09/15/17 09/15/17 09/15/17 13:44 13:44 13:44 RDW 16.8 H Plt Count 86 L Lymph % (Auto) [place] % (Auto) Lymph # 0.9 L [place] # Seg Neutrophils % 72.2 H Seg Neuts % (Manual) Lymphocytes % (Manual) Seg Neutrophils # Seg Neutrophils # Man Lymphocytes # (Manual) Percent Retic PT 16.3 H INR 1.24 H APTT 37.3 H POC ABG pO2 Potassium Chloride 107.2 H Carbon Dioxide 19 L BUN 58 H Creatinine 9.6 H Glucose 173 H POC Glucose Phosphorus Magnesium 2.40 H Ferritin Total Bilirubin AST ALT Total Protein 5.3 L Albumin 3.3 L Lipase 09/15/17 09/16/17 09/16/17 22:00 04:04 07:35 RDW Plt Count Lymph % (Auto) [place] % (Auto) Lymph # [place] # Seg Neutrophils % Seg Neuts % (Manual) Lymphocytes % (Manual) Seg Neutrophils # Seg Neutrophils # Man Lymphocytes # (Manual) Percent Retic PT INR APTT POC ABG pO2 56 L Potassium Chloride Carbon Dioxide 20 L BUN 65 H Creatinine 10.5 H Glucose POC Glucose 62 L Phosphorus Magnesium 2.50 H Ferritin Total Bilirubin AST ALT Total Protein Albumin Lipase 09/16/17 09/16/17 09/17/17 08:44 23:31 01:13 RDW Plt Count Lymph % (Auto) [place] % (Auto) Lymph # [place] # Seg Neutrophils % Seg Neuts % (Manual) Lymphocytes % (Manual) Seg Neutrophils # Seg Neutrophils # Man Lymphocytes # (Manual) Percent Retic PT INR APTT POC ABG pO2 Potassium Chloride Carbon Dioxide BUN Creatinine Glucose POC Glucose 143 H 66 L 118 H Phosphorus Magnesium Ferritin Total Bilirubin AST ALT Total Protein Albumin Lipase 09/17/17 09/17/17 09/17/17 05:46 11:13 11:13 RDW 15.9 H Plt Count 72 L Lymph % (Auto) [place] % (Auto) Lymph # [place] # Seg Neutrophils % Seg Neuts % (Manual) Lymphocytes % (Manual) Seg Neutrophils # Seg Neutrophils # Man Lymphocytes # (Manual) Percent Retic PT INR APTT POC ABG pO2 Potassium 5.2 H Chloride Carbon Dioxide 21 L BUN 49 H Creatinine 10.1 H Glucose POC Glucose 67 L Phosphorus Magnesium Ferritin Total Bilirubin AST ALT Total Protein Albumin Lipase 09/17/17 09/18/17 09/18/17 17:36 04:15 04:15 RDW 16.3 H Plt Count 71 L Lymph % (Auto) [place] % (Auto) 11.1 H Lymph # 1.0 L [place] # Seg Neutrophils % 70.3 H Seg Neuts % (Manual) Lymphocytes % (Manual) Seg Neutrophils # Seg Neutrophils # Man Lymphocytes # (Manual) Percent Retic PT INR APTT POC ABG pO2 Potassium 5.3 H Chloride 95.3 L Carbon Dioxide BUN 28 H Creatinine 6.3 H Glucose 123 H POC Glucose 118 H Phosphorus Magnesium Ferritin Total Bilirubin AST ALT Total Protein Albumin Lipase 09/18/17 09/19/17 09/20/17 05:14 11:23 09:11 RDW 15.8 H Plt Count 46 L Lymph % (Auto) 6.9 L [place] % (Auto) Lymph # 0.7 L [place] # Seg Neutrophils % 86.3 H Seg Neuts % (Manual) Lymphocytes % (Manual) Seg Neutrophils # 9.4 H Seg Neutrophils # Man Lymphocytes # (Manual) Percent Retic PT INR APTT POC ABG pO2 Potassium Chloride Carbon Dioxide BUN Creatinine Glucose POC Glucose 116 H 121 H Phosphorus Magnesium Ferritin Total Bilirubin AST ALT Total Protein Albumin Lipase 09/20/17 09/21/17 09/22/17 09:11 08:02 06:37 RDW 15.6 H Plt Count 52 L Lymph % (Auto) [place] % (Auto) Lymph # [place] # Seg Neutrophils % Seg Neuts % (Manual) Lymphocytes % (Manual) Seg Neutrophils # Seg Neutrophils # Man Lymphocytes # (Manual) Percent Retic PT INR APTT POC ABG pO2 Potassium 5.9 H D Chloride 95.2 L 93.9 L Carbon Dioxide 18 L 21 L BUN 52 H 72 H Creatinine 6.6 H 8.2 H Glucose 112 H POC Glucose Phosphorus 8.10 H Magnesium Ferritin Total Bilirubin AST ALT Total Protein Albumin Lipase 67 H 09/22/17 09/23/17 09/23/17 06:37 05:49 05:49 RDW 16.1 H Plt Count 53 L Lymph % (Auto) [place] % (Auto) Lymph # [place] # Seg Neutrophils % Seg Neuts % (Manual) 81.0 H Lymphocytes % (Manual) 7.0 L Seg Neutrophils # Seg Neutrophils # Man 7.9 H Lymphocytes # (Manual) 0.7 L Percent Retic PT INR APTT POC ABG pO2 Potassium Chloride 94.4 L 90.8 L Carbon Dioxide BUN 95 H 61 H Creatinine 10.2 H 7.3 H Glucose 104 H 112 H POC Glucose Phosphorus 5.30 H Magnesium Ferritin Total Bilirubin 1.30 H AST 533 H ALT 143 H Total Protein 5.9 L Albumin 3.8 L Lipase 09/26/17 09/26/17 09/27/17 05:51 05:51 08:17 RDW 17.1 H 17.4 H Plt Count 45 L 56 L Lymph % (Auto) [place] % (Auto) 14.9 H 14.6 H Lymph # 1.0 L 1.0 L [place] # 1.0 H 1.0 H Seg Neutrophils % Seg Neuts % (Manual) Lymphocytes % (Manual) Seg Neutrophils # Seg Neutrophils # Man Lymphocytes # (Manual) Percent Retic 6.48 H PT INR APTT POC ABG pO2 Potassium Chloride 94.5 L Carbon Dioxide 21 L BUN 60 H Creatinine 7.1 H Glucose POC Glucose Phosphorus Magnesium Ferritin Total Bilirubin 1.70 H AST 84 H ALT Total Protein 6.0 L Albumin 3.0 L Lipase 09/27/17 08:17 RDW Plt Count Lymph % (Auto) [place] % (Auto) Lymph # [place] # Seg Neutrophils % Seg Neuts % (Manual) Lymphocytes % (Manual) Seg Neutrophils # Seg Neutrophils # Man Lymphocytes # (Manual) Percent Retic PT INR APTT POC ABG pO2 Potassium Chloride Carbon Dioxide BUN Creatinine Glucose POC Glucose Phosphorus Magnesium Ferritin 1889.0 H Total Bilirubin AST ALT Total Protein Albumin Lipase Chest x-ray: image reviewed (enlarged main pulm artery trunks; no PTX) Allied health notes reviewed: nursing
--- NOTE | 2017-09-27 12:42 | Gastroenterology Progress Note ---
Assessment and Plan - Patient Problems (1) Nausea & vomiting Current Visit: Yes Status: Acute Plan to address problem: - Intractable, since PM placement last week (but ?symptoms before this per notes ). - Could be from gastroparesis, gallstones, or renal disease; doubt PM causative. - I don't feel she is a surgical candidate for cholecystectomy at present; she needs a CT of the A/P (concern about cirrhosis given elevated LFTs/low platelets , which would affect surgical decision-making). (2) Gallstones Current Visit: Yes Status: Acute Plan to address problem: - Gallstones, thickened GB wall, and elevated LFTs, but no RUQ pain, only N/V. - Unable to get HIDA scan until 3-5 days after gastroparesis study. - Agree with surgical consult (spoke with Dr Blake), but she would be considered a high-risk case at present. (3) Elevated liver enzymes Current Visit: Yes Status: Acute Plan to address problem: - Improved, and CBD is normal in size; likely related to underlying gallstone disease, but shock liver from hypotension/dehydration from vomiting is also possible. - Hepatitis testing negative at HD center by report. - CT scan to better visualize liver, and asses for varices/ascites, etc (4) Gastroparesis Current Visit: Yes Status: Acute Plan to address problem: - Unclear if primary or secondary; will re-try liquid diet for now, but would avoid solid food. Subjective Date of service: 09/27/17 Principal diagnosis: N/V Interval history: The patient is seen in the gastric emptying study (no emptying at 45 minutes). She says she tolerated liquids yesterday, but was NPO today. There is no blood in the emesis. She denies RUQ pain. Objective - Constitutional Vitals: Temp Pulse Resp BP Pulse Ox 98.5 F 62 16 135/61 98 09/27/17 03:33 09/27/17 10:29 09/27/17 08:55 09/27/17 10:29 09/27/17 08:49 General appearance: no acute distress - EENT Eyes: PERRL - Respiratory Respiratory effort: normal Respiratory: bilateral: CTA - Cardiovascular Rhythm: regular Heart Sounds: Present: S1 & S2 - Gastrointestinal General gastrointestinal: Present: soft, non-tender, non-distended - Labs CBC & Chem 7: 09/27/17 08:17 09/26/17 05:51 Labs: Laboratory Results - last 24 hr 09/27/17 09/27/17 09/27/17 08:17 08:17 08:17 WBC 6.9 RBC 4.06 Hgb 12.0 Hct 37.9 MCV 93 MCH 30 MCHC 32 RDW 17.4 H Plt Count 56 L Lymph % (Auto) 14.2 Jack % (Auto) 14.6 H Eos % (Auto) 2.3 Baso % (Auto) 0.7 Lymph # 1.0 L Jack # 1.0 H Eos # 0.2 Baso # 0.0 Seg Neutrophils % 68.2 Seg Neutrophils # 4.7 Percent Retic 6.48 H Ferritin 1889.0 H Direct Antiglob Test Negative GIGI, Poly Interpret Negative
--- NOTE | 2017-09-27 13:09 | Nuclear Medicine Report ---
Gastric emptying with nuclear med: Study performed with 1 mCi technetium 99m sulfur colloid in oatmeal. History: Vomiting, not tolerating p.o. Findings: T. half of gastric emptying is 149 minutes. Gastric emptying is 24% at 90 minutes. Impression: Markedly delayed gastric emptying.
[2017-09-27] MEDS ORDERED: NACL ONE (14:48)
[2017-09-27] MEDS: MILK OF MAGNESIA PO PRN (16:19)
--- NOTE | 2017-09-27 17:11 | Cat Scan Report ---
FINAL REPORT EXAM: CT ABDOMEN PELVIS W CON HISTORY: liver disease TECHNIQUE: Standard enhanced CT of the abdomen and pelvis. Delayed imaging through the kidneys and bladder was obtained. Coronal and sagittal reconstruction was also performed. Contrast: 100 mL Omnipaque 300 given IV. Gastroview given as oral. PRIORS: Ultrasound RUQ 09/26/2017 FINDINGS: Within the abdomen, the liver, pancreas, and adrenal glands are unremarkable. Gallstones are present in the gallbladder. There is a triangular-shaped ill-defined hypodense focus in the spleen measuring 2.2 x 2.0 cm (axial image 34) of uncertain etiology. This may represent a hemangioma or small area of prior infarct. It does not change in size on delayed imaging making hemangioma less likely. The stomach is distended. The [place] kidneys are atrophic bilaterally. In the right lower quadrant, there is an ovoid soft tissue density measuring 5.8 x 3.2 x 4.1 cm which displaces the cecum and small bowel medially. This has high density serpiginous structures centrally and around the outer margin, probably related to hyperemic enhanced vessels. Upon correlation with ultrasound, this focus is probably representing the transplanted kidney which had excellent blood flow identified on ultrasound. No evidence for retroperitoneal or pelvic lymphadenopathy is seen. The bowel loops have normal caliber. No soft tissue mass, fluid collection, inflammatory change, or free air is seen within the abdomen or pelvis. The appendix is not visualized. The cecum dips deep into the right pelvis. Moderate calcification of aorta is seen. Within the pelvis, the bladder is unremarkable. The uterus is normal. No evidence for mass or lymphadenopathy is seen in the pelvis. Images through the upper abdomen include the lung bases which are expanded and clear. The heart is enlarged. Pacer wire terminates in the right ventricle. Bony structures show no focal abnormalities and are intact. IMPRESSION: 1. no acute intra-abdominal process noted. 2. Cholelithiasis 3. Hypodense focus in the spleen, probably a hemangioma or prior infarct. Ultrasound may be of further help. 4. Transplanted kidney in the right lower quadrant of the abdomen.
[2017-09-27] MEDS: ZOFRAN IV PRN (21:40)
[2017-09-27] MEDS: PERCOCET 5/325 PO PRN (22:16)
[2017-09-28 06:59] LABS: Basophils % (Auto) 0.6 % (0.0-1.8); Eosinophils # (Auto) 0.2 K/mm3 (0.0-0.4); Eosinophils % (Auto) 3.5 % (0.0-4.3); Hematocrit 34.6 % (30.3-42.9); Hemoglobin 11.5 gm/dl (10.1-14.3); Lymphocytes # (Auto) 1.1 K/mm3 (1.2-5.4); Lymphocytes % (Auto) 15.5 % (13.4-35.0); Mean Corpuscular HGB Conc 33 % (30-34); Mean Corpuscular Hemoglobin 31 pg (28-32); Mean Corpuscular Volume 93 fl (79-97); Monocytes # (Auto) 0.9 K/mm3 (0.0-0.8); Monocytes % (Auto) 13.4 % (0.0-7.3); Red Blood Count 3.74 M/mm3 (3.65-5.03); Red Cell Distribution Width 16.9 % (13.2-15.2)
[2017-09-28 07:00] LABS: Platelet Count 62 K/mm3 (140-440)
[2017-09-28] MEDS: DUONEB *Not for PRN Use IH SCH ×3 (07:31→20:44)
[2017-09-28] MEDS: DULCOLAX PR PRN (07:58)
[2017-09-28] MEDS: CARAFATE PO SCH ×4 (07:58→22:51)
[2017-09-28] MEDS: ZOFRAN IV PRN (08:12)
--- NOTE | 2017-09-28 08:42 | Hem/Onc Progress Note ---
Assessment and Plan 1-thrombocytopenia- slowly improving. continue to monitor 2- ESRD on HD 3- complete heart block- s/p pacemaker 4- COPD 5- CVA 6- abdominal pain-possible cholecystitis. surgery evaluating. high ferritin is compatible with inflammatory process. 7- high retic count- coomb's negative. continue to monitor counts. Dr Spencer will see on friday Subjective Date of service: 09/28/17 Interval history: feels better. not as nauseated Objective - Constitutional Vitals: Last Vital Signs Temp 97.5 F L 09/28/17 04:35 Pulse 61 09/28/17 04:35 Resp 20 09/28/17 04:35 BP 124/64 09/28/17 04:35 Pulse Ox 95 09/28/17 04:35 General appearance: no acute distress - Labs Lab Results: Laboratory Results - last 24 hr 09/27/17 09/27/17 09/27/17 08:17 08:17 08:17 WBC 6.9 RBC 4.06 Hgb 12.0 Hct 37.9 MCV 93 MCH 30 MCHC 32 RDW 17.4 H Plt Count 56 L Lymph % (Auto) 14.2 [place] % (Auto) 14.6 H Eos % (Auto) 2.3 Baso % (Auto) 0.7 Lymph # 1.0 L [place] # 1.0 H Eos # 0.2 Baso # 0.0 Seg Neutrophils % 68.2 Seg Neutrophils # 4.7 Percent Retic 6.48 H Ferritin 1889.0 H Vitamin B12 > 2000 H Direct Antiglob Test GIGI, Poly Interpret 09/27/17 09/28/17 08:17 06:03 WBC 6.9 RBC 3.74 Hgb 11.5 Hct 34.6 MCV 93 MCH 31 MCHC 33 RDW 16.9 H Plt Count 62 L Lymph % (Auto) 15.5 [place] % (Auto) 13.4 H Eos % (Auto) 3.5 Baso % (Auto) 0.6 Lymph # 1.1 L [place] # 0.9 H Eos # 0.2 Baso # 0.0 Seg Neutrophils % 67.0 Seg Neutrophils # 4.6 Percent Retic Ferritin 1889 Vitamin B12 Direct Antiglob Test Negative GIGI, Poly Interpret Negative - Imaging and cardiology CT scan - abdomen: report reviewed
--- NOTE | 2017-09-28 10:37 | Progress Note ---
Assessment and Plan Assessment and plan: 57 YO Female with HTN, ESRD on HD(M,W,F), COPD, Chronic Respiratory Failure on 3L Home oxygen, Diastolic CHF, Pulmonary HTN, SDH who was brought to hospital for AMS and bradycardia to 20s Dysphagia and vomiting MBS done and she is tolerating PO without aspirating EGD shows no outlet obstruction for NM gastric emptying study to r/o gastroparesis Toxic Metabolic encephalopathy now resolved, likely due to periop meds - Cardiogenic shock, improved Cardiology following, Pt is s/p TVP placement, s/p PPM placement 09/18/17 - hyperkalemia resolved with HD - HTN, uncontrolled meds optimized - Acute on chronic respiratory failure likely from cardiogenic shock, and underlying COPD CXR suggestive for pulmonary congestion she is on home O2 cont supplemental O2, duenebs, now resolved - COPD cont O2 n/c. and nebulizer - CHB (complete heart block) Cardiology consulted, s/p Transcutaneous pacing, Pt taken urgently to geophysical laboratory chief for intervention. s/p PPM placement on 09/18/17 - ESRD has h/o renal transplant Nephrology consulted for dialysis, monitor uop q shift, dialysis per renal. 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 now closely monitor with frequent neuro assessment - DVT prophylaxis lovenox History Interval history: Family is complaining that she has been vomiting, she vomits about 6- 8 hours after eating food, and it appears undigested Review of systems Neurological: has been awake and alert Constitutional: No fevers, no malaise, no joint pains CVS: No chest pain, no orthopnea, no dyspnea on exertion, no pedal edema GI: She has had vomiting as per family members. Respiratory: No shortness of breath, no wheezing, no coughing Hospitalist Physical - Physical exam Narrative exam: General.: Appears well, no distress, nontoxic HEENT: Moist mucous membranes, extraocular muscles intact, no lymphadenopathy Neck: supple Cardiac: S1-S2 heard Lungs: clear to auscultation bilaterally Abdomen: soft , nontender, nondistended, bowel sounds positive Extremities: no edema clubbing or cyanosis Skin: no rash or lesions Neurologic: no gross focal deficits Psych: appropriate behavior, appropriate mood, corporative, judgment intact - Constitutional Vitals: Temp Pulse Resp BP Pulse Ox 98.2 F 62 18 145/69 97 09/28/17 07:52 09/28/17 07:52 09/28/17 07:52 09/28/17 07:52 09/28/17 07:52 General appearance: Present: no acute distress, well-nourished Results - Labs CBC & Chem 7: 09/28/17 13:17 09/26/17 05:51 Labs: Laboratory Last Values WBC 6.9 K/mm3 (4.5-11.0) 09/28/17 06:03 RBC 3.74 M/mm3 (3.65-5.03) 09/28/17 06:03 Hgb 11.5 gm/dl (10.1-14.3) 09/28/17 06:03 Hct 34.6 % (30.3-42.9) 09/28/17 06:03 MCV 93 fl (79-97) 09/28/17 06:03 MCH 31 pg (28-32) 09/28/17 06:03 MCHC 33 % (30-34) 09/28/17 06:03 RDW 16.9 % (13.2-15.2) H 09/28/17 06:03 Plt Count 62 K/mm3 (140-440) L 09/28/17 06:03 Lymph % (Auto) 15.5 % (13.4-35.0) 09/28/17 06:03 [place] % (Auto) 13.4 % (0.0-7.3) H 09/28/17 06:03 Eos % (Auto) 3.5 % (0.0-4.3) 09/28/17 06:03 Baso % (Auto) 0.6 % (0.0-1.8) 09/28/17 06:03 Lymph # 1.1 K/mm3 (1.2-5.4) L 09/28/17 06:03 [place] # 0.9 K/mm3 (0.0-0.8) H 09/28/17 06:03 Eos # 0.2 K/mm3 (0.0-0.4) 09/28/17 06:03 Baso # 0.0 K/mm3 (0.0-0.1) 09/28/17 06:03 Add Manual Diff Complete 09/23/17 05:49 Total Counted 100 09/23/17 05:49 Seg Neutrophils % 67.0 % (40.0-70.0) 09/28/17 06:03 Seg Neuts % (Manual) 81.0 % (40.0-70.0) H 09/23/17 05:49 Band Neutrophils % 5.0 % 09/23/17 05:49 Lymphocytes % (Manual) 7.0 % (13.4-35.0) L 09/23/17 05:49 Reactive Lymphs % (Man) 0 % 09/23/17 05:49 Monocytes % (Manual) 5.0 % (0.0-7.3) 09/23/17 05:49 Eosinophils % (Manual) 2.0 % (0.0-4.3) 09/23/17 05:49 Basophils % (Manual) 0 % (0.0-1.8) 09/23/17 05:49 Metamyelocytes % 0 % 09/23/17 05:49 Myelocytes % 0 % 09/23/17 05:49 Promyelocytes % 0 % 09/23/17 05:49 Blast Cells % 0 % 09/23/17 05:49 Nucleated RBC % Not Reportable 09/23/17 05:49 Seg Neutrophils # 4.6 K/mm3 (1.8-7.7) 09/28/17 06:03 Seg Neutrophils # Man 7.9 K/mm3 (1.8-7.7) H 09/23/17 05:49 Band Neutrophils # 0.5 K/mm3 09/23/17 05:49 Lymphocytes # (Manual) 0.7 K/mm3 (1.2-5.4) L 09/23/17 05:49 Abs React Lymphs (Man) 0.0 K/mm3 09/23/17 05:49 Monocytes # (Manual) 0.5 K/mm3 (0.0-0.8) 09/23/17 05:49 Eosinophils # (Manual) 0.2 K/mm3 (0.0-0.4) 09/23/17 05:49 Basophils # (Manual) 0.0 K/mm3 (0.0-0.1) 09/23/17 05:49 Metamyelocytes # 0.0 K/mm3 09/23/17 05:49 Myelocytes # 0.0 K/mm3 09/23/17 05:49 Promyelocytes # 0.0 K/mm3 09/23/17 05:49 Blast Cells # 0.0 K/mm3 09/23/17 05:49 WBC Morphology Not Reportable 09/23/17 05:49 Hypersegmented Neuts Not Reportable 09/23/17 05:49 Hyposegmented Neuts Not Reportable 09/23/17 05:49 Hypogranular Neuts Not Reportable 09/23/17 05:49 Smudge Cells Not Reportable 09/23/17 05:49 Toxic Granulation Not Reportable 09/23/17 05:49 Toxic Vacuolation Not Reportable 09/23/17 05:49 Dohle Bodies Not Reportable 09/23/17 05:49 Pelger-Huet Anomaly Not Reportable 09/23/17 05:49 Jia Rods Not Reportable 09/23/17 05:49 Platelet Estimate Not Reportable 09/23/17 05:49 Clumped Platelets Not Reportable 09/23/17 05:49 Plt Clumps, EDTA Not Reportable 09/23/17 05:49 Large Platelets Not Reportable 09/23/17 05:49 Giant Platelets Not Reportable 09/23/17 05:49 Platelet Satelliting Not Reportable 09/23/17 05:49 Plt Morphology Comment Not Reportable 09/23/17 05:49 RBC Morphology Not Reportable 09/23/17 05:49 Dimorphic RBCs Not Reportable 09/23/17 05:49 Polychromasia Few 09/23/17 05:49 Hypochromasia Not Reportable 09/23/17 05:49 Poikilocytosis Not Reportable 09/23/17 05:49 Anisocytosis Not Reportable 09/23/17 05:49 Microcytosis Not Reportable 09/23/17 05:49 Macrocytosis Not Reportable 09/23/17 05:49 Spherocytes Not Reportable 09/23/17 05:49 Pappenheimer Bodies Not Reportable 09/23/17 05:49 Sickle Cells Not Reportable 09/23/17 05:49 Target Cells Not Reportable 09/23/17 05:49 Tear Drop Cells Not Reportable 09/23/17 05:49 Ovalocytes Not Reportable 09/23/17 05:49 Helmet Cells Not Reportable 09/23/17 05:49 [place] Blue Bodies Not Reportable 09/23/17 05:49 [place] Rings Not Reportable 09/23/17 05:49 Maranda Cells Not Reportable 09/23/17 05:49 Bite Cells Not Reportable 09/23/17 05:49 Crenated Cell Not Reportable 09/23/17 05:49 Elliptocytes Not Reportable 09/23/17 05:49 Acanthocytes (Spur) Not Reportable 09/23/17 05:49 Rouleaux Not Reportable 09/23/17 05:49 Hemoglobin C Crystals Not Reportable 09/23/17 05:49 Schistocytes Not Reportable 09/23/17 05:49 Malaria parasites Not Reportable 09/23/17 05:49 Percent Retic 6.48 % (0.78-2.58) H 09/27/17 08:17 King Bodies Not Reportable 09/23/17 05:49 Hem Pathologist Commnt No 09/23/17 05:49 PT 14.5 Sec. (12.2-14.9) 09/18/17 04:15 INR 1.07 (0.87-1.13) 09/18/17 04:15 APTT 37.3 Sec. (24.2-36.6) H 09/15/17 13:44 POC ABG pH 7.361 (7.35-7.45) 09/15/17 22:00 POC ABG pCO2 40.1 (35-45) 09/15/17 22:00 POC ABG pO2 56 (80-105) L 09/15/17 22:00 POC ABG HCO3 22.7 09/15/17 22:00 POC ABG Total CO2 24 09/15/17 22:00 POC ABG O2 Sat 88 09/15/17 22:00 POC ABG Base Excess -3 09/15/17 22:00 FiO2 28 % 09/15/17 22:00 Sodium 138 mmol/L (137-145) 09/26/17 05:51 Potassium 4.0 mmol/L (3.6-5.0) 09/26/17 05:51 Chloride 94.5 mmol/L (98-107) L 09/26/17 05:51 Carbon Dioxide 21 mmol/L (22-30) L 09/26/17 05:51 Anion Gap 27 mmol/L 09/26/17 05:51 BUN 60 mg/dL (7-17) H 09/26/17 05:51 Creatinine 7.1 mg/dL (0.7-1.2) H 09/26/17 05:51 Estimated GFR 6 ml/min 09/26/17 05:51 BUN/Creatinine Ratio 8 % 09/26/17 05:51 Glucose 85 mg/dL (65-100) 09/26/17 05:51 POC Glucose 96 (70-105) 09/22/17 07:26 Calcium 9.7 mg/dL (8.4-10.2) 09/26/17 05:51 Phosphorus 5.30 mg/dL (2.5-4.5) H 09/23/17 05:49 Magnesium 2.10 mg/dL (1.7-2.3) 09/23/17 05:49 Ferritin 1889.0 ng/mL (13.0-400.0) H 09/27/17 08:17 Total Bilirubin 1.70 mg/dL (0.1-1.2) H 09/26/17 05:51 AST 84 units/L (5-40) H 09/26/17 05:51 ALT 25 units/L (7-56) 09/26/17 05:51 Alkaline Phosphatase 76 units/L (35-129) 09/26/17 05:51 Total Creatine Kinase 46 units/L (30-135) 09/15/17 18:07 CK-MB (CK-2) 1.5 ng/mL (0.0-4.0) 09/15/17 18:07 CK-MB (CK-2) Rel Index 3.2 (0-4) 09/15/17 18:07 Troponin T 0.029 ng/mL (0.00-0.029) 09/15/17 18:07 Total Protein 6.0 g/dL (6.3-8.2) L 09/26/17 05:51 Albumin 3.0 g/dL (3.9-5) L 09/26/17 05:51 Albumin/Globulin Ratio 1.0 % 09/26/17 05:51 Lipase 67 units/L (13-60) H 09/21/17 08:02 Vitamin B12 > 2000 pg/mL (211-911) H 09/27/17 08:17 Hepatitis A IgM Ab Non-reactive (NonReactive) 09/24/17 11:15 Hep Bs Antigen Non-reactive (Negative) 09/24/17 11:15 Hep B Core IgM Ab Non-reactive (NonReactive) 09/24/17 11:15 Hepatitis C Antibody Non-reactive (NonReactive) 09/24/17 11:15 Direct Antiglob Test Negative 09/27/17 08:17 GIGI, Poly Interpret Negative 09/27/17 08:17
[2017-09-28] MEDS: LOPRESSOR PO SCH ×2 (10:48→22:51)
[2017-09-28] MEDS: PROTONIX PO SCH (10:49)
[2017-09-28] MEDS: REVATIO PO SCH ×2 (10:49→22:52)
[2017-09-28] MEDS: PROCARDIA XL PO SCH (10:49)
--- NOTE | 2017-09-28 11:33 | Progress Note ---
Assessment and Plan Impression * End-stage renal disease on maintenance hemodialysis * Complete heart block * Hypertension * Anemia secondary to ESRD * Nausea and vomiting * Malfunctioning AV fistula * Thrombocytopenia * Abnormal LFTs Recommendations * Continue hemodialysis on Mondays, Wednesdays and Fridays schedule for now * Patient is status post permanent pacemaker placement * She had angiogram and angioplasty done of her AV fistula by [facility] vascular * Adjust diet and meds for ESRD state * Procrit with dialysis * No IV, BP of any puncture in her access arm * Her LFTs seems to have improved significantly. She is being followed by GI services. Workup in progress. * She is also noted to have thrombocytopenia. hematology evaluation appreciated Subjective Date of service: 09/28/17 Principal diagnosis: Complete Heart Block; Symptomatic Bradycardia; Hypoxemic Resp Failure Interval history: Patient complains of some nausea but no vomiting. Had some bright red blood per rectum. Denies any shortness of breath Objective - Vital Signs Vital signs: Vital Signs - 12hr 09/28/17 09/28/17 09/28/17 00:57 04:35 07:31 Temperature 98.2 F 97.5 F L Pulse Rate 59 L 61 Pulse Rate [ 57 L Anterior Bilateral Throughout] Respiratory 18 20 Rate Respiratory 18 Rate [Anterior Bilateral Throughout] Blood Pressure 128/63 124/64 O2 Sat by Pulse 97 95 98 Oximetry 09/28/17 09/28/17 09/28/17 07:41 07:52 10:48 Temperature 98.2 F Pulse Rate 62 63 Pulse Rate [ 60 Anterior Bilateral Throughout] Respiratory 18 Rate Respiratory 18 Rate [Anterior Bilateral Throughout] Blood Pressure 145/69 146/69 O2 Sat by Pulse 97 Oximetry - General Appearance General appearance: chronically ill, frail EENT: PERRL, mucous membranes moist Neck: no JVD, no thyromegaly, no carotid bruit, supple Respiratory: Present: Clear to Ascultation Cardiology: regular, normal heart rate Gastrointestinal: normal, normoactive bowel sounds Integumentary: other (AV fistula in her right forearm. Good bruit and thrill) - Lab 09/28/17 06:03 09/26/17 05:51 Most recent lab results Calcium 9.7 mg/dL (8.4-10.2) 09/26/17 05:51 Phosphorus 5.30 mg/dL (2.5-4.5) H 09/23/17 05:49 Magnesium 2.10 mg/dL (1.7-2.3) 09/23/17 05:49
[2017-09-28] MEDS ORDERED: REGLAN IV PRN (11:49)
--- NOTE | 2017-09-28 11:55 | Gastroenterology Progress Note ---
Assessment and Plan - Patient Problems (1) Nausea & vomiting Current Visit: Yes Status: Acute Plan to address problem: - Intractable, since PM placement last week (but ?symptoms before this per notes ). - Could be from gastroparesis, gallstones, or renal disease; doubt PM causative. - I don't feel she is a surgical candidate for cholecystectomy at present. - CT A/P shows no obstruction, and GES (+) for gastroparesis. - Would pursue low-volume/gastroparesis diet at present. - No further recs at present unless clinical worsening. (2) Gallstones Current Visit: Yes Status: Acute Plan to address problem: - Gallstones, thickened GB wall, and elevated LFTs, but no RUQ pain, only N/V. - Unable to get HIDA scan until 3-5 days after gastroparesis study. - Agree with surgical consult (spoke with Dr Blake), but she would be considered a high-risk case at present. - CT scan does not confirm GB inflammation, and I would not pursue surgery unless significant worsening. (3) Elevated liver enzymes Current Visit: Yes Status: Acute Plan to address problem: - Improved, and CBD is normal in size; likely related to underlying gallstone disease, but shock liver from hypotension/dehydration from vomiting is also possible. - Hepatitis testing negative at HD center by report. - CT scan negative for liver lesions or signs of chronic liver disease. (4) Gastroparesis Current Visit: Yes Status: Acute Plan to address problem: - Unclear if primary or secondary; will re-try mechanical soft diet. - Reglan PRN; will d/c zofran. (5) Rectal hemorrhage Current Visit: Yes Status: Acute Plan to address problem: - Likely hemorrhoidal or rectal ulcer given severe constipation with need for suppository. - Will place on daily sennakot. - Hct > 35; colonoscopy if progresses, but comorbids would make this relatively contraindicated at present. Subjective Date of service: 09/28/17 Principal diagnosis: Gastroparesis, rectal bleeding, N/V, gallstones Interval history: The patient is tolerating small amounts of food. She has nausea at her baseline , but no emesis today. She had one still this AM with streaks of blood, but this was after a suppository (no BM for over 5 days). Her hct remains above 35. She has no hematemesis. She has LUQ pain with the BM, but no R sided pain , anorexia, itching or jaundice. Objective - Constitutional Vitals: Temp Pulse Resp BP Pulse Ox 98.2 F 63 18 146/69 97 09/28/17 07:52 09/28/17 10:48 09/28/17 07:52 09/28/17 10:48 09/28/17 07:52 General appearance: no acute distress - Respiratory Respiratory effort: normal Respiratory: bilateral: CTA - Cardiovascular Rhythm: regular Heart Sounds: Present: S1 & S2 - Gastrointestinal General gastrointestinal: Present: soft, tender (Mild, in the LUQ and LLQ; no guard/rebound/peritoneal signs), non-distended - Labs CBC & Chem 7: 09/28/17 06:03 09/26/17 05:51 Labs: Laboratory Results - last 24 hr 09/27/17 09/28/17 08:17 06:03 WBC 6.9 RBC 3.74 Hgb 11.5 Hct 34.6 MCV 93 MCH 31 MCHC 33 RDW 16.9 H Plt Count 62 L Lymph % (Auto) 15.5 [place] % (Auto) 13.4 H Eos % (Auto) 3.5 Baso % (Auto) 0.6 Lymph # 1.1 L [place] # 0.9 H Eos # 0.2 Baso # 0.0 Seg Neutrophils % 67.0 Seg Neutrophils # 4.6 Vitamin B12 > 2000 H
[2017-09-28 13:38] LABS: Basophils % (Auto) 0.6 % (0.0-1.8); Eosinophils # (Auto) 0.1 K/mm3 (0.0-0.4); Eosinophils % (Auto) 2.1 % (0.0-4.3); Hematocrit 35.3 % (30.3-42.9); Hemoglobin 11.6 gm/dl (10.1-14.3); Lymphocytes # (Auto) 0.7 K/mm3 (1.2-5.4); Lymphocytes % (Auto) 10.6 % (13.4-35.0); Mean Corpuscular HGB Conc 33 % (30-34); Mean Corpuscular Hemoglobin 31 pg (28-32); Mean Corpuscular Volume 94 fl (79-97); Monocytes # (Auto) 0.8 K/mm3 (0.0-0.8); Monocytes % (Auto) 12.2 % (0.0-7.3); Red Blood Count 3.78 M/mm3 (3.65-5.03); Red Cell Distribution Width 18.4 % (13.2-15.2)
[2017-09-28 13:41] LABS: Platelet Count 66 K/mm3 (140-440)
--- NOTE | 2017-09-28 18:00 | Progress Note ---
Assessment and Plan Symptomatic Bradycardia Complete Heart Block Pulmonary HTN (Sever by 2D ECHO) Chronic Hypoxemic Resp Failure ESRD on Dialysis HTN Thrombocytopenia - s/p PPM - continue supplemental oxygen to keep sats > 90% - continue bronchodilators and pulmonary toilet - re-introduce PD5 inhibitor therapy for Pulm HTN and tolerating well so far ( Revatio 20mg po bid) - will advance to tid therapy shortly isf continues to tolrate - optimize cardiac therapy per pest controller - continue GI evaluation (for gastric emptying study) - continue HD/UF per nephrology prescription - Adjust antihypertensives per nephrology - continue GI & VTE prophylaxis - follow platelet count ...re-evaluate in am & prn Subjective Date of service: 09/28/17 Principal diagnosis: Gastroparesis, rectal bleeding, N/V, gallstones Interval history: Patient is seen today for: Complete Heart Block; Symptomatic Bradycardia; Hypoxemic Resp Failure Seen and examined at bedside; 24hour events reviewed; nursing and respiratory care staff consulted; no adverse overnight events reported to me; resting in bed ; remains with intermittent emesis unassociated with chest pains or SOB; remains on supplemental oxygen Objective Vital Signs - 12hr 09/28/17 09/28/17 09/28/17 07:25 07:31 07:41 Temperature Pulse Rate 58 L Pulse Rate [ 57 L 60 Anterior Bilateral Throughout] Respiratory Rate Respiratory 18 18 Rate [Anterior Bilateral Throughout] Blood Pressure O2 Sat by Pulse 98 Oximetry 09/28/17 09/28/17 09/28/17 07:52 10:48 12:38 Temperature 98.2 F Pulse Rate 62 63 65 Pulse Rate [ Anterior Bilateral Throughout] Respiratory 18 Rate Respiratory Rate [Anterior Bilateral Throughout] Blood Pressure 145/69 146/69 133/79 O2 Sat by Pulse 97 98 Oximetry 09/28/17 09/28/17 09/28/17 14:00 14:10 14:53 Temperature Pulse Rate Pulse Rate [ 60 67 Anterior Bilateral Throughout] Respiratory Rate Respiratory 18 18 Rate [Anterior Bilateral Throughout] Blood Pressure O2 Sat by Pulse 98 Oximetry 09/28/17 17:21 Temperature Pulse Rate 60 Pulse Rate [ Anterior Bilateral Throughout] Respiratory Rate Respiratory Rate [Anterior Bilateral Throughout] Blood Pressure 125/65 O2 Sat by Pulse 98 Oximetry Constitutional: no acute distress, alert Eyes: non-icteric ENT: oropharynx moist, other (mallampatti 2) Neck: supple, no lymphadenopathy, no JVD, other (No thyromegaly) Effort: mildly labored Ascultation: Bilateral: clear, diminished breath sounds Percussion: Bilateral: not dull Cardiovascular: regular rate and rhythm, other (S1,S2 no murmurs, active precordium) Gastrointestinal: normoactive bowel sounds, soft, non-tender, non-distended, other (no palpable HSM) Integumentary: normal, other (right forearm AV-graft) Extremities: no cyanosis, no edema, pulses normal, no ischemia or petechiae Neurologic: normal mental status, non-focal exam, pupils equal and round, motor strength normal and Psychiatric: mood appropriate, affect normal CBC and BMP: 09/28/17 13:17 09/29/17 07:04 ABG, PT/INR, D-dimer: ABG POC ABG pH 7.361 (7.35-7.45) 09/15/17 22:00 POC ABG pCO2 40.1 (35-45) 09/15/17 22:00 POC ABG pO2 56 (80-105) L 09/15/17 22:00 POC ABG HCO3 22.7 09/15/17 22:00 POC ABG Total CO2 24 09/15/17 22:00 POC ABG O2 Sat 88 09/15/17 22:00 PT/INR, D-dimer PT 14.5 Sec. (12.2-14.9) 09/18/17 04:15 INR 1.07 (0.87-1.13) 09/18/17 04:15 Abnormal lab findings: Abnormal Labs 09/15/17 09/15/17 09/15/17 13:44 13:44 13:44 RDW 16.8 H Plt Count 86 L Lymph % (Auto) Rains % (Auto) Lymph # 0.9 L Rains # Seg Neutrophils % 72.2 H Seg Neuts % (Manual) Lymphocytes % (Manual) Seg Neutrophils # Seg Neutrophils # Man Lymphocytes # (Manual) Percent Retic PT 16.3 H INR 1.24 H APTT 37.3 H POC ABG pO2 Potassium Chloride 107.2 H Carbon Dioxide 19 L BUN 58 H Creatinine 9.6 H Glucose 173 H POC Glucose Phosphorus Magnesium 2.40 H Ferritin Total Bilirubin AST ALT Total Protein 5.3 L Albumin 3.3 L Lipase Vitamin B12 09/15/17 09/16/17 09/16/17 22:00 04:04 07:35 RDW Plt Count Lymph % (Auto) Rains % (Auto) Lymph # Rains # Seg Neutrophils % Seg Neuts % (Manual) Lymphocytes % (Manual) Seg Neutrophils # Seg Neutrophils # Man Lymphocytes # (Manual) Percent Retic PT INR APTT POC ABG pO2 56 L Potassium Chloride Carbon Dioxide 20 L BUN 65 H Creatinine 10.5 H Glucose POC Glucose 62 L Phosphorus Magnesium 2.50 H Ferritin Total Bilirubin AST ALT Total Protein Albumin Lipase Vitamin B12 09/16/17 09/16/17 09/17/17 08:44 23:31 01:13 RDW Plt Count Lymph % (Auto) Rains % (Auto) Lymph # Rains # Seg Neutrophils % Seg Neuts % (Manual) Lymphocytes % (Manual) Seg Neutrophils # Seg Neutrophils # Man Lymphocytes # (Manual) Percent Retic PT INR APTT POC ABG pO2 Potassium Chloride Carbon Dioxide BUN Creatinine Glucose POC Glucose 143 H 66 L 118 H Phosphorus Magnesium Ferritin Total Bilirubin AST ALT Total Protein Albumin Lipase Vitamin B12 09/17/17 09/17/17 09/17/17 05:46 11:13 11:13 RDW 15.9 H Plt Count 72 L Lymph % (Auto) Rains % (Auto) Lymph # Rains # Seg Neutrophils % Seg Neuts % (Manual) Lymphocytes % (Manual) Seg Neutrophils # Seg Neutrophils # Man Lymphocytes # (Manual) Percent Retic PT INR APTT POC ABG pO2 Potassium 5.2 H Chloride Carbon Dioxide 21 L BUN 49 H Creatinine 10.1 H Glucose POC Glucose 67 L Phosphorus Magnesium Ferritin Total Bilirubin AST ALT Total Protein Albumin Lipase Vitamin B12 09/17/17 09/18/17 09/18/17 17:36 04:15 04:15 RDW 16.3 H Plt Count 71 L Lymph % (Auto) Rains % (Auto) 11.1 H Lymph # 1.0 L Rains # Seg Neutrophils % 70.3 H Seg Neuts % (Manual) Lymphocytes % (Manual) Seg Neutrophils # Seg Neutrophils # Man Lymphocytes # (Manual) Percent Retic PT INR APTT POC ABG pO2 Potassium 5.3 H Chloride 95.3 L Carbon Dioxide BUN 28 H Creatinine 6.3 H Glucose 123 H POC Glucose 118 H Phosphorus Magnesium Ferritin Total Bilirubin AST ALT Total Protein Albumin Lipase Vitamin B12 09/18/17 09/19/17 09/20/17 05:14 11:23 09:11 RDW 15.8 H Plt Count 46 L Lymph % (Auto) 6.9 L Rains % (Auto) Lymph # 0.7 L Rains # Seg Neutrophils % 86.3 H Seg Neuts % (Manual) Lymphocytes % (Manual) Seg Neutrophils # 9.4 H Seg Neutrophils # Man Lymphocytes # (Manual) Percent Retic PT INR APTT POC ABG pO2 Potassium Chloride Carbon Dioxide BUN Creatinine Glucose POC Glucose 116 H 121 H Phosphorus Magnesium Ferritin Total Bilirubin AST ALT Total Protein Albumin Lipase Vitamin B12 09/20/17 09/21/17 09/22/17 09:11 08:02 06:37 RDW 15.6 H Plt Count 52 L Lymph % (Auto) Rains % (Auto) Lymph # Rains # Seg Neutrophils % Seg Neuts % (Manual) Lymphocytes % (Manual) Seg Neutrophils # Seg Neutrophils # Man Lymphocytes # (Manual) Percent Retic PT INR APTT POC ABG pO2 Potassium 5.9 H D Chloride 95.2 L 93.9 L Carbon Dioxide 18 L 21 L BUN 52 H 72 H Creatinine 6.6 H 8.2 H Glucose 112 H POC Glucose Phosphorus 8.10 H Magnesium Ferritin Total Bilirubin AST ALT Total Protein Albumin Lipase 67 H Vitamin B12 09/22/17 09/23/17 09/23/17 06:37 05:49 05:49 RDW 16.1 H Plt Count 53 L Lymph % (Auto) Rains % (Auto) Lymph # Rains # Seg Neutrophils % Seg Neuts % (Manual) 81.0 H Lymphocytes % (Manual) 7.0 L Seg Neutrophils # Seg Neutrophils # Man 7.9 H Lymphocytes # (Manual) 0.7 L Percent Retic PT INR APTT POC ABG pO2 Potassium Chloride 94.4 L 90.8 L Carbon Dioxide BUN 95 H 61 H Creatinine 10.2 H 7.3 H Glucose 104 H 112 H POC Glucose Phosphorus 5.30 H Magnesium Ferritin Total Bilirubin 1.30 H AST 533 H ALT 143 H Total Protein 5.9 L Albumin 3.8 L Lipase Vitamin B12 09/26/17 09/26/17 09/27/17 05:51 05:51 08:17 RDW 17.1 H 17.4 H Plt Count 45 L 56 L Lymph % (Auto) Rains % (Auto) 14.9 H 14.6 H Lymph # 1.0 L 1.0 L Rains # 1.0 H 1.0 H Seg Neutrophils % Seg Neuts % (Manual) Lymphocytes % (Manual) Seg Neutrophils # Seg Neutrophils # Man Lymphocytes # (Manual) Percent Retic 6.48 H PT INR APTT POC ABG pO2 Potassium Chloride 94.5 L Carbon Dioxide 21 L BUN 60 H Creatinine 7.1 H Glucose POC Glucose Phosphorus Magnesium Ferritin Total Bilirubin 1.70 H AST 84 H ALT Total Protein 6.0 L Albumin 3.0 L Lipase Vitamin B12 09/27/17 09/27/17 09/28/17 08:17 08:17 06:03 RDW 16.9 H Plt Count 62 L Lymph % (Auto) Rains % (Auto) 13.4 H Lymph # 1.1 L Rains # 0.9 H Seg Neutrophils % Seg Neuts % (Manual) Lymphocytes % (Manual) Seg Neutrophils # Seg Neutrophils # Man Lymphocytes # (Manual) Percent Retic PT INR APTT POC ABG pO2 Potassium Chloride Carbon Dioxide BUN Creatinine Glucose POC Glucose Phosphorus Magnesium Ferritin 1889.0 H Total Bilirubin AST ALT Total Protein Albumin Lipase Vitamin B12 > 2000 H 09/28/17 13:17 RDW 18.4 H Plt Count 66 L Lymph % (Auto) 10.6 L Rains % (Auto) 12.2 H Lymph # 0.7 L Rains # Seg Neutrophils % 74.5 H Seg Neuts % (Manual) Lymphocytes % (Manual) Seg Neutrophils # Seg Neutrophils # Man Lymphocytes # (Manual) Percent Retic PT INR APTT POC ABG pO2 Potassium Chloride Carbon Dioxide BUN Creatinine Glucose POC Glucose Phosphorus Magnesium Ferritin Total Bilirubin AST ALT Total Protein Albumin Lipase Vitamin B12 Allied health notes reviewed: nursing
[2017-09-28] MEDS: SENOKOT S PO SCH (22:51)
--- NOTE | 2017-09-29 06:37 | Progress Note ---
Assessment and Plan Assessment and plan: 57 YO Female with HTN, ESRD on HD(M,W,F), COPD, Chronic Respiratory Failure on 3L Home oxygen, Diastolic CHF, Pulmonary HTN, SDH presents to ED for evaluation. who pw with severe bradycardia and cardiogenic shock, now sp PM Dysphagia and vomiting with streak of blood- likely negrita bello tear hg stable For MBS and swallow evaluation, after which she is to have EGD with GI Metabolic encephalopathy -less responsive and sleepy since she had AV graft plasty and HD -if not improved by tomorrow, will need imaging of brain - Cardiogenic shock, improved Cardiology following, Pt is s/p TVP placement, s/p PPM placement 09/18/17 - Nausea/vomiting will cont PPI and carafate for possible PUD, Zofran if no improvement then consider consulting GI for possible EGD - hyperkalemia likely from ESRD, K LEVEL 4.7 TODAY ordered kayexalate if k level >5.2 - HTN, uncontrolled meds optimized - Acute on chronic respiratory failure likely from cardiogenic shock, and underlying COPD CXR suggestive for pulmonary congestion she is on home O2 cont supplemental O2, duenebs - COPD cont O2 n/c. and nebulizer - CHB (complete heart block) Cardiology consulted, s/p Transcutaneous pacing, Pt taken urgently to supervisor labor gang for intervention. s/p PPM placement on 09/18/17 - ESRD has h/o renal transplant Nephrology consulted for dialysis, monitor uop q shift, dialysis per renal. 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 now closely monitor with frequent neuro assessment - Encephalopathy, resolved likely Metabolic encephalopathy: appears more alert and awake today - dialysis as per renal team, supportive care, treat underlying cause RUE Fistulogram done today 09/22/17 - DVT prophylaxis lovenox History Interval history: Family is complaining that she has been vomiting, h Review of systems Neurological: is now mentating well, no confusion Constitutional: No fevers, no malaise, no joint pains CVS: No chest pain, no orthopnea, no dyspnea on exertion, no pedal edema GI: She has had vomiting assoc with abdominal pain Respiratory: No shortness of breath, no wheezing, no coughing Hospitalist Physical - Physical exam Narrative exam: General.: Appears well, no distress, nontoxic HEENT: Moist mucous membranes, extraocular muscles intact, no lymphadenopathy Neck: supple Cardiac: S1-S2 heard Lungs: clear to auscultation bilaterally Abdomen: soft , nontender, nondistended, bowel sounds positive Extremities: no edema clubbing or cyanosis Skin: no rash or lesions Neurologic: no gross focal deficits Psych: appropriate behavior, appropriate mood, corporative, judgment intact - Constitutional Vitals: Temp Pulse Resp BP Pulse Ox 98.0 F 60 18 120/57 94 09/29/17 03:33 09/29/17 05:12 09/29/17 03:33 09/29/17 03:33 09/29/17 03:33 General appearance: Present: no acute distress, well-nourished Results - Labs CBC & Chem 7: 09/28/17 13:17 09/26/17 05:51 Labs: Laboratory Last Values WBC 6.7 K/mm3 (4.5-11.0) 09/28/17 13:17 RBC 3.78 M/mm3 (3.65-5.03) 09/28/17 13:17 Hgb 11.6 gm/dl (10.1-14.3) 09/28/17 13:17 Hct 35.3 % (30.3-42.9) 09/28/17 13:17 MCV 94 fl (79-97) 09/28/17 13:17 MCH 31 pg (28-32) 09/28/17 13:17 MCHC 33 % (30-34) 09/28/17 13:17 RDW 18.4 % (13.2-15.2) H 09/28/17 13:17 Plt Count 66 K/mm3 (140-440) L 09/28/17 13:17 Lymph % (Auto) 10.6 % (13.4-35.0) L 09/28/17 13:17 Barton % (Auto) 12.2 % (0.0-7.3) H 09/28/17 13:17 Eos % (Auto) 2.1 % (0.0-4.3) 09/28/17 13:17 Baso % (Auto) 0.6 % (0.0-1.8) 09/28/17 13:17 Lymph # 0.7 K/mm3 (1.2-5.4) L 09/28/17 13:17 Barton # 0.8 K/mm3 (0.0-0.8) 09/28/17 13:17 Eos # 0.1 K/mm3 (0.0-0.4) 09/28/17 13:17 Baso # 0.0 K/mm3 (0.0-0.1) 09/28/17 13:17 Add Manual Diff Complete 09/23/17 05:49 Total Counted 100 09/23/17 05:49 Seg Neutrophils % 74.5 % (40.0-70.0) H 09/28/17 13:17 Seg Neuts % (Manual) 81.0 % (40.0-70.0) H 09/23/17 05:49 Band Neutrophils % 5.0 % 09/23/17 05:49 Lymphocytes % (Manual) 7.0 % (13.4-35.0) L 09/23/17 05:49 Reactive Lymphs % (Man) 0 % 09/23/17 05:49 Monocytes % (Manual) 5.0 % (0.0-7.3) 09/23/17 05:49 Eosinophils % (Manual) 2.0 % (0.0-4.3) 09/23/17 05:49 Basophils % (Manual) 0 % (0.0-1.8) 09/23/17 05:49 Metamyelocytes % 0 % 09/23/17 05:49 Myelocytes % 0 % 09/23/17 05:49 Promyelocytes % 0 % 09/23/17 05:49 Blast Cells % 0 % 09/23/17 05:49 Nucleated RBC % Not Reportable 09/23/17 05:49 Seg Neutrophils # 5.0 K/mm3 (1.8-7.7) 09/28/17 13:17 Seg Neutrophils # Man 7.9 K/mm3 (1.8-7.7) H 09/23/17 05:49 Band Neutrophils # 0.5 K/mm3 09/23/17 05:49 Lymphocytes # (Manual) 0.7 K/mm3 (1.2-5.4) L 09/23/17 05:49 Abs React Lymphs (Man) 0.0 K/mm3 09/23/17 05:49 Monocytes # (Manual) 0.5 K/mm3 (0.0-0.8) 09/23/17 05:49 Eosinophils # (Manual) 0.2 K/mm3 (0.0-0.4) 09/23/17 05:49 Basophils # (Manual) 0.0 K/mm3 (0.0-0.1) 09/23/17 05:49 Metamyelocytes # 0.0 K/mm3 09/23/17 05:49 Myelocytes # 0.0 K/mm3 09/23/17 05:49 Promyelocytes # 0.0 K/mm3 09/23/17 05:49 Blast Cells # 0.0 K/mm3 09/23/17 05:49 WBC Morphology Not Reportable 09/23/17 05:49 Hypersegmented Neuts Not Reportable 09/23/17 05:49 Hyposegmented Neuts Not Reportable 09/23/17 05:49 Hypogranular Neuts Not Reportable 09/23/17 05:49 Smudge Cells Not Reportable 09/23/17 05:49 Toxic Granulation Not Reportable 09/23/17 05:49 Toxic Vacuolation Not Reportable 09/23/17 05:49 Dohle Bodies Not Reportable 09/23/17 05:49 Pelger-Huet Anomaly Not Reportable 09/23/17 05:49 Jia Rods Not Reportable 09/23/17 05:49 Platelet Estimate Not Reportable 09/23/17 05:49 Clumped Platelets Not Reportable 09/23/17 05:49 Plt Clumps, EDTA Not Reportable 09/23/17 05:49 Large Platelets Not Reportable 09/23/17 05:49 Giant Platelets Not Reportable 09/23/17 05:49 Platelet Satelliting Not Reportable 09/23/17 05:49 Plt Morphology Comment Not Reportable 09/23/17 05:49 RBC Morphology Not Reportable 09/23/17 05:49 Dimorphic RBCs Not Reportable 09/23/17 05:49 Polychromasia Few 09/23/17 05:49 Hypochromasia Not Reportable 09/23/17 05:49 Poikilocytosis Not Reportable 09/23/17 05:49 Anisocytosis Not Reportable 09/23/17 05:49 Microcytosis Not Reportable 09/23/17 05:49 Macrocytosis Not Reportable 09/23/17 05:49 Spherocytes Not Reportable 09/23/17 05:49 Pappenheimer Bodies Not Reportable 09/23/17 05:49 Sickle Cells Not Reportable 09/23/17 05:49 Target Cells Not Reportable 09/23/17 05:49 Tear Drop Cells Not Reportable 09/23/17 05:49 Ovalocytes Not Reportable 09/23/17 05:49 Helmet Cells Not Reportable 09/23/17 05:49 Marie-[place] Bodies Not Reportable 09/23/17 05:49 [place] Rings Not Reportable 09/23/17 05:49 Maranda Cells Not Reportable 09/23/17 05:49 Bite Cells Not Reportable 09/23/17 05:49 Crenated Cell Not Reportable 09/23/17 05:49 Elliptocytes Not Reportable 09/23/17 05:49 Acanthocytes (Spur) Not Reportable 09/23/17 05:49 Rouleaux Not Reportable 09/23/17 05:49 Hemoglobin C Crystals Not Reportable 09/23/17 05:49 Schistocytes Not Reportable 09/23/17 05:49 Malaria parasites Not Reportable 09/23/17 05:49 Percent Retic 6.48 % (0.78-2.58) H 09/27/17 08:17 King Bodies Not Reportable 09/23/17 05:49 Hem Pathologist Commnt No 09/23/17 05:49 PT 14.5 Sec. (12.2-14.9) 09/18/17 04:15 INR 1.07 (0.87-1.13) 09/18/17 04:15 APTT 37.3 Sec. (24.2-36.6) H 09/15/17 13:44 POC ABG pH 7.361 (7.35-7.45) 09/15/17 22:00 POC ABG pCO2 40.1 (35-45) 09/15/17 22:00 POC ABG pO2 56 (80-105) L 09/15/17 22:00 POC ABG HCO3 22.7 09/15/17 22:00 POC ABG Total CO2 24 09/15/17 22:00 POC ABG O2 Sat 88 09/15/17 22:00 POC ABG Base Excess -3 09/15/17 22:00 FiO2 28 % 09/15/17 22:00 Sodium 138 mmol/L (137-145) 09/26/17 05:51 Potassium 4.0 mmol/L (3.6-5.0) 09/26/17 05:51 Chloride 94.5 mmol/L (98-107) L 09/26/17 05:51 Carbon Dioxide 21 mmol/L (22-30) L 09/26/17 05:51 Anion Gap 27 mmol/L 09/26/17 05:51 BUN 60 mg/dL (7-17) H 09/26/17 05:51 Creatinine 7.1 mg/dL (0.7-1.2) H 09/26/17 05:51 Estimated GFR 6 ml/min 09/26/17 05:51 BUN/Creatinine Ratio 8 % 09/26/17 05:51 Glucose 85 mg/dL (65-100) 09/26/17 05:51 POC Glucose 96 (70-105) 09/22/17 07:26 Calcium 9.7 mg/dL (8.4-10.2) 09/26/17 05:51 Phosphorus 5.30 mg/dL (2.5-4.5) H 09/23/17 05:49 Magnesium 2.10 mg/dL (1.7-2.3) 09/23/17 05:49 Ferritin 1889.0 ng/mL (13.0-400.0) H 09/27/17 08:17 Total Bilirubin 1.70 mg/dL (0.1-1.2) H 09/26/17 05:51 AST 84 units/L (5-40) H 09/26/17 05:51 ALT 25 units/L (7-56) 09/26/17 05:51 Alkaline Phosphatase 76 units/L (35-129) 09/26/17 05:51 Total Creatine Kinase 46 units/L (30-135) 09/15/17 18:07 CK-MB (CK-2) 1.5 ng/mL (0.0-4.0) 09/15/17 18:07 CK-MB (CK-2) Rel Index 3.2 (0-4) 09/15/17 18:07 Troponin T 0.029 ng/mL (0.00-0.029) 09/15/17 18:07 Total Protein 6.0 g/dL (6.3-8.2) L 09/26/17 05:51 Albumin 3.0 g/dL (3.9-5) L 09/26/17 05:51 Albumin/Globulin Ratio 1.0 % 09/26/17 05:51 Lipase 67 units/L (13-60) H 09/21/17 08:02 Vitamin B12 > 2000 pg/mL (211-911) H 09/27/17 08:17 Hepatitis A IgM Ab Non-reactive (NonReactive) 09/24/17 11:15 Hep Bs Antigen Non-reactive (Negative) 09/24/17 11:15 Hep B Core IgM Ab Non-reactive (NonReactive) 09/24/17 11:15 Hepatitis C Antibody Non-reactive (NonReactive) 09/24/17 11:15 Direct Antiglob Test Negative 09/27/17 08:17 GIGI, Poly Interpret Negative 09/27/17 08:17
--- NOTE | 2017-09-29 06:40 | Progress Note ---
Assessment and Plan Assessment and plan: 57 YO Female with HTN, ESRD on HD(M,W,F), COPD, Chronic Respiratory Failure on 3L Home oxygen, Diastolic CHF, Pulmonary HTN, SDH presents to ED for evaluation. who pw with severe bradycardia and cardiogenic shock, now sp PM Dysphagia and vomiting with streak of blood- likely negrita bello tear hg stable sp MBS which was neg for aspiration EGD was neg for Gastric outlet obs obtain NM gastric emptying study to eval for gastroparesis Metabolic encephalopathy -less responsive and sleepy since she had AV graft plasty and HD -if not improved by tomorrow, will need imaging of brain - Cardiogenic shock, improved Cardiology following, Pt is s/p TVP placement, s/p PPM placement 09/18/17 - Nausea/vomiting will cont PPI and carafate for possible PUD, Zofran if no improvement then consider consulting GI for possible EGD - hyperkalemia improved with HD - HTN, uncontrolled meds optimized - Acute on chronic respiratory failure likely from cardiogenic shock, and underlying COPD CXR suggestive for pulmonary congestion she is on home O2 cont supplemental O2, duenebs - COPD cont O2 n/c. and nebulizer - CHB (complete heart block) Cardiology consulted, s/p Transcutaneous pacing, Pt taken urgently to catheter finisher and inspector for intervention. s/p PPM placement on 09/18/17 - ESRD has h/o renal transplant Nephrology consulted for dialysis, monitor uop q shift, dialysis per renal. 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 now closely monitor with frequent neuro assessment - Encephalopathy, resolved likely Metabolic encephalopathy: appears more alert and awake today - dialysis as per renal team, supportive care, treat underlying cause RUE Fistulogram done today 09/22/17 - DVT prophylaxis lovenox History Interval history: Family is complaining that she has been vomiting, h Review of systems Neurological: is now mentating well, no confusion Constitutional: No fevers, no malaise, no joint pains CVS: No chest pain, no orthopnea, no dyspnea on exertion, no pedal edema GI: She has had vomiting assoc with abdominal pain Respiratory: No shortness of breath, no wheezing, no coughing Hospitalist Physical - Physical exam Narrative exam: General.: Appears well, no distress, nontoxic HEENT: Moist mucous membranes, extraocular muscles intact, no lymphadenopathy Neck: supple Cardiac: S1-S2 heard Lungs: clear to auscultation bilaterally Abdomen: soft , nontender, nondistended, bowel sounds positive Extremities: no edema clubbing or cyanosis Skin: no rash or lesions Neurologic: no gross focal deficits Psych: appropriate behavior, appropriate mood, corporative, judgment intact - Constitutional Vitals: Temp Pulse Resp BP Pulse Ox 98.0 F 60 18 120/57 94 09/29/17 03:33 09/29/17 05:12 09/29/17 03:33 09/29/17 03:33 09/29/17 03:33 General appearance: Present: no acute distress, well-nourished Results - Labs CBC & Chem 7: 09/28/17 13:17 09/26/17 05:51 Labs: Laboratory Last Values WBC 6.7 K/mm3 (4.5-11.0) 09/28/17 13:17 RBC 3.78 M/mm3 (3.65-5.03) 09/28/17 13:17 Hgb 11.6 gm/dl (10.1-14.3) 09/28/17 13:17 Hct 35.3 % (30.3-42.9) 09/28/17 13:17 MCV 94 fl (79-97) 09/28/17 13:17 MCH 31 pg (28-32) 09/28/17 13:17 MCHC 33 % (30-34) 09/28/17 13:17 RDW 18.4 % (13.2-15.2) H 09/28/17 13:17 Plt Count 66 K/mm3 (140-440) L 09/28/17 13:17 Lymph % (Auto) 10.6 % (13.4-35.0) L 09/28/17 13:17 [place] % (Auto) 12.2 % (0.0-7.3) H 09/28/17 13:17 Eos % (Auto) 2.1 % (0.0-4.3) 09/28/17 13:17 Baso % (Auto) 0.6 % (0.0-1.8) 09/28/17 13:17 Lymph # 0.7 K/mm3 (1.2-5.4) L 09/28/17 13:17 [place] # 0.8 K/mm3 (0.0-0.8) 09/28/17 13:17 Eos # 0.1 K/mm3 (0.0-0.4) 09/28/17 13:17 Baso # 0.0 K/mm3 (0.0-0.1) 09/28/17 13:17 Add Manual Diff Complete 09/23/17 05:49 Total Counted 100 09/23/17 05:49 Seg Neutrophils % 74.5 % (40.0-70.0) H 09/28/17 13:17 Seg Neuts % (Manual) 81.0 % (40.0-70.0) H 09/23/17 05:49 Band Neutrophils % 5.0 % 09/23/17 05:49 Lymphocytes % (Manual) 7.0 % (13.4-35.0) L 09/23/17 05:49 Reactive Lymphs % (Man) 0 % 09/23/17 05:49 Monocytes % (Manual) 5.0 % (0.0-7.3) 09/23/17 05:49 Eosinophils % (Manual) 2.0 % (0.0-4.3) 09/23/17 05:49 Basophils % (Manual) 0 % (0.0-1.8) 09/23/17 05:49 Metamyelocytes % 0 % 09/23/17 05:49 Myelocytes % 0 % 09/23/17 05:49 Promyelocytes % 0 % 09/23/17 05:49 Blast Cells % 0 % 09/23/17 05:49 Nucleated RBC % Not Reportable 09/23/17 05:49 Seg Neutrophils # 5.0 K/mm3 (1.8-7.7) 09/28/17 13:17 Seg Neutrophils # Man 7.9 K/mm3 (1.8-7.7) H 09/23/17 05:49 Band Neutrophils # 0.5 K/mm3 09/23/17 05:49 Lymphocytes # (Manual) 0.7 K/mm3 (1.2-5.4) L 09/23/17 05:49 Abs React Lymphs (Man) 0.0 K/mm3 09/23/17 05:49 Monocytes # (Manual) 0.5 K/mm3 (0.0-0.8) 09/23/17 05:49 Eosinophils # (Manual) 0.2 K/mm3 (0.0-0.4) 09/23/17 05:49 Basophils # (Manual) 0.0 K/mm3 (0.0-0.1) 09/23/17 05:49 Metamyelocytes # 0.0 K/mm3 09/23/17 05:49 Myelocytes # 0.0 K/mm3 09/23/17 05:49 Promyelocytes # 0.0 K/mm3 09/23/17 05:49 Blast Cells # 0.0 K/mm3 09/23/17 05:49 WBC Morphology Not Reportable 09/23/17 05:49 Hypersegmented Neuts Not Reportable 09/23/17 05:49 Hyposegmented Neuts Not Reportable 09/23/17 05:49 Hypogranular Neuts Not Reportable 09/23/17 05:49 Smudge Cells Not Reportable 09/23/17 05:49 Toxic Granulation Not Reportable 09/23/17 05:49 Toxic Vacuolation Not Reportable 09/23/17 05:49 Dohle Bodies Not Reportable 09/23/17 05:49 Pelger-Huet Anomaly Not Reportable 09/23/17 05:49 Jia Rods Not Reportable 09/23/17 05:49 Platelet Estimate Not Reportable 09/23/17 05:49 Clumped Platelets Not Reportable 09/23/17 05:49 Plt Clumps, EDTA Not Reportable 09/23/17 05:49 Large Platelets Not Reportable 09/23/17 05:49 Giant Platelets Not Reportable 09/23/17 05:49 Platelet Satelliting Not Reportable 09/23/17 05:49 Plt Morphology Comment Not Reportable 09/23/17 05:49 RBC Morphology Not Reportable 09/23/17 05:49 Dimorphic RBCs Not Reportable 09/23/17 05:49 Polychromasia Few 09/23/17 05:49 Hypochromasia Not Reportable 09/23/17 05:49 Poikilocytosis Not Reportable 09/23/17 05:49 Anisocytosis Not Reportable 09/23/17 05:49 Microcytosis Not Reportable 09/23/17 05:49 Macrocytosis Not Reportable 09/23/17 05:49 Spherocytes Not Reportable 09/23/17 05:49 Pappenheimer Bodies Not Reportable 09/23/17 05:49 Sickle Cells Not Reportable 09/23/17 05:49 Target Cells Not Reportable 09/23/17 05:49 Tear Drop Cells Not Reportable 09/23/17 05:49 Ovalocytes Not Reportable 09/23/17 05:49 Helmet Cells Not Reportable 09/23/17 05:49 [place] Bodies Not Reportable 09/23/17 05:49 [place] Rings Not Reportable 09/23/17 05:49 [place] Cells Not Reportable 09/23/17 05:49 Bite Cells Not Reportable 09/23/17 05:49 Crenated Cell Not Reportable 09/23/17 05:49 Elliptocytes Not Reportable 09/23/17 05:49 Acanthocytes (Spur) Not Reportable 09/23/17 05:49 Rouleaux Not Reportable 09/23/17 05:49 Hemoglobin C Crystals Not Reportable 09/23/17 05:49 Schistocytes Not Reportable 09/23/17 05:49 Malaria parasites Not Reportable 09/23/17 05:49 Percent Retic 6.48 % (0.78-2.58) H 09/27/17 08:17 [place] Bodies Not Reportable 09/23/17 05:49 Hem Pathologist Commnt No 09/23/17 05:49 PT 14.5 Sec. (12.2-14.9) 09/18/17 04:15 INR 1.07 (0.87-1.13) 09/18/17 04:15 APTT 37.3 Sec. (24.2-36.6) H 09/15/17 13:44 POC ABG pH 7.361 (7.35-7.45) 09/15/17 22:00 POC ABG pCO2 40.1 (35-45) 09/15/17 22:00 POC ABG pO2 56 (80-105) L 09/15/17 22:00 POC ABG HCO3 22.7 09/15/17 22:00 POC ABG Total CO2 24 09/15/17 22:00 POC ABG O2 Sat 88 09/15/17 22:00 POC ABG Base Excess -3 09/15/17 22:00 FiO2 28 % 09/15/17 22:00 Sodium 138 mmol/L (137-145) 09/26/17 05:51 Potassium 4.0 mmol/L (3.6-5.0) 09/26/17 05:51 Chloride 94.5 mmol/L (98-107) L 09/26/17 05:51 Carbon Dioxide 21 mmol/L (22-30) L 09/26/17 05:51 Anion Gap 27 mmol/L 09/26/17 05:51 BUN 60 mg/dL (7-17) H 09/26/17 05:51 Creatinine 7.1 mg/dL (0.7-1.2) H 09/26/17 05:51 Estimated GFR 6 ml/min 09/26/17 05:51 BUN/Creatinine Ratio 8 % 09/26/17 05:51 Glucose 85 mg/dL (65-100) 09/26/17 05:51 POC Glucose 96 (70-105) 09/22/17 07:26 Calcium 9.7 mg/dL (8.4-10.2) 09/26/17 05:51 Phosphorus 5.30 mg/dL (2.5-4.5) H 09/23/17 05:49 Magnesium 2.10 mg/dL (1.7-2.3) 09/23/17 05:49 Ferritin 1889.0 ng/mL (13.0-400.0) H 09/27/17 08:17 Total Bilirubin 1.70 mg/dL (0.1-1.2) H 09/26/17 05:51 AST 84 units/L (5-40) H 09/26/17 05:51 ALT 25 units/L (7-56) 09/26/17 05:51 Alkaline Phosphatase 76 units/L (35-129) 09/26/17 05:51 Total Creatine Kinase 46 units/L (30-135) 09/15/17 18:07 CK-MB (CK-2) 1.5 ng/mL (0.0-4.0) 09/15/17 18:07 CK-MB (CK-2) Rel Index 3.2 (0-4) 09/15/17 18:07 Troponin T 0.029 ng/mL (0.00-0.029) 09/15/17 18:07 Total Protein 6.0 g/dL (6.3-8.2) L 09/26/17 05:51 Albumin 3.0 g/dL (3.9-5) L 09/26/17 05:51 Albumin/Globulin Ratio 1.0 % 09/26/17 05:51 Lipase 67 units/L (13-60) H 09/21/17 08:02 Vitamin B12 > 2000 pg/mL (211-911) H 09/27/17 08:17 Hepatitis A IgM Ab Non-reactive (NonReactive) 09/24/17 11:15 Hep Bs Antigen Non-reactive (Negative) 09/24/17 11:15 Hep B Core IgM Ab Non-reactive (NonReactive) 09/24/17 11:15 Hepatitis C Antibody Non-reactive (NonReactive) 09/24/17 11:15 Direct Antiglob Test Negative 09/27/17 08:17 GIGI, Poly Interpret Negative 09/27/17 08:17
[2017-09-29 07:52] LABS: Albumin 3.3 g/dL (3.9-5)
[2017-09-29] MEDS: DUONEB *Not for PRN Use IH SCH ×3 (07:52→20:12)
[2017-09-29] MEDS: CARAFATE PO SCH ×4 (09:10→21:22)
[2017-09-29] MEDS: PROCARDIA XL PO SCH (09:10)
[2017-09-29] MEDS: PROTONIX PO SCH (09:10)
[2017-09-29] MEDS: LOPRESSOR PO SCH ×2 (09:10→21:21)
[2017-09-29] MEDS: REVATIO PO SCH ×2 (09:24→21:21)
--- NOTE | 2017-09-29 10:44 | Progress Note ---
Assessment and Plan Impression * End-stage renal disease on maintenance hemodialysis * Complete heart block * Hypertension * Anemia secondary to ESRD * Nausea and vomiting * Malfunctioning AV fistula * Thrombocytopenia * Abnormal LFTs Recommendations * Continue hemodialysis on Mondays, Wednesdays and Fridays schedule for now * Patient is status post permanent pacemaker placement * She had angiogram and angioplasty done of her AV fistula by [facility] vascular * Adjust diet and meds for ESRD state * Procrit with dialysis * No IV, BP of any puncture in her access arm * Her LFTs seems to have improved significantly. She is being followed by GI services. Workup in progress. * She is also noted to have thrombocytopenia. hematology evaluation appreciated Subjective Date of service: 09/29/17 Principal diagnosis: Gastroparesis, rectal bleeding, N/V, gallstones Interval history: Patient is currently undergoing hemodialysis. Tolerating well. Denies any nausea or vomiting. Objective - Vital Signs Vital signs: Vital Signs - 12hr 09/28/17 09/28/17 09/29/17 22:51 23:48 03:33 Temperature 98.3 F 98.0 F Pulse Rate 58 L 59 L 58 L Respiratory 18 18 Rate Blood Pressure 124/64 133/66 120/57 O2 Sat by Pulse 95 94 Oximetry 09/29/17 09/29/17 09/29/17 05:12 08:34 09:20 Temperature 98.5 F 97.2 F L Pulse Rate 60 64 67 Respiratory 18 18 Rate Blood Pressure 128/69 151/80 O2 Sat by Pulse 96 Oximetry 09/29/17 09/29/17 09/29/17 09:30 09:45 10:00 Temperature Pulse Rate 70 63 63 Respiratory Rate Blood Pressure 147/75 134/67 139/69 O2 Sat by Pulse Oximetry 09/29/17 10:15 Temperature Pulse Rate 62 Respiratory Rate Blood Pressure 138/67 O2 Sat by Pulse Oximetry - General Appearance General appearance: well-developed, well-nourished, appears stated age EENT: PERRL, mucous membranes moist Neck: no JVD, no thyromegaly, no carotid bruit, supple Respiratory: Present: Clear to Ascultation Cardiology: regular, normal heart rate Gastrointestinal: normal, normoactive bowel sounds Integumentary: no rash, other (the patient and her right forearm. Cannulated for dialysis) - Lab 09/28/17 13:17 09/29/17 07:04 Most recent lab results Calcium 10.0 mg/dL (8.4-10.2) 09/29/17 07:04 Phosphorus 5.30 mg/dL (2.5-4.5) H 09/23/17 05:49 Magnesium 2.10 mg/dL (1.7-2.3) 09/23/17 05:49
--- NOTE | 2017-09-29 10:53 | Gastroenterology Progress Note ---
Assessment and Plan - Patient Problems (1) Nausea & vomiting Current Visit: Yes Status: Acute Plan to address problem: - Intractable, since PM placement last week (but ?symptoms before this per notes ); slowly improving over the last 3 days. - Could be from gastroparesis, gallstones, or renal disease; doubt PM causative. - I don't feel she is a surgical candidate for cholecystectomy at present. - CT A/P shows no obstruction, and GES (+) for gastroparesis. - Would pursue low-volume/gastroparesis diet at present. - No further recs at present unless clinical worsening. (2) Gallstones Current Visit: Yes Status: Acute Plan to address problem: - Gallstones, thickened GB wall, and elevated LFTs, but no RUQ pain, only N/V ( likely from gastroparesis). - Unable to get HIDA scan until 3-5 days after gastroparesis study. - CT scan does not confirm GB inflammation, and I would not pursue surgery/ surgical consult unless significant worsening. (3) Elevated liver enzymes Current Visit: Yes Status: Acute Plan to address problem: - Improved, and CBD is normal in size; likely related to underlying gallstone disease, but shock liver from hypotension/dehydration from vomiting is also possible. - Hepatitis testing negative at HD center by report. - CT scan negative for liver lesions or signs of chronic liver disease. - Liver enzymes resolved (09/29) and would not get ERCP unless obvious GS given comorbids; CT and US show no obstruction stone (and unable to get MRCP due to new pacemaker). (4) Gastroparesis Current Visit: Yes Status: Acute Plan to address problem: - Unclear if primary or secondary; will continue mechanical soft diet. - Reglan PRN; will d/c zofran. - Emphasized small, frequent meals to patient. (5) Rectal hemorrhage Current Visit: Yes Status: Acute Plan to address problem: - Likely hemorrhoidal or rectal ulcer given severe constipation with need for suppository. - Will place on daily sennakot. - Hct > 35; colonoscopy if progresses, but comorbids would make this relatively contraindicated at present. Subjective Date of service: 09/29/17 Principal diagnosis: Gastroparesis, rectal bleeding, N/V, gallstones Interval history: The patient is seen in HD. She is eating without vomiting, but does have some low-grade nausea (chronic). No more blood in the stools, and hct today is pending (no BM at all yet today). She still has some mild L-sided abdominal pain. Objective - Constitutional Vitals: Temp Pulse Resp BP Pulse Ox 97.2 F L 62 18 138/67 96 09/29/17 09:20 09/29/17 10:15 09/29/17 09:20 09/29/17 10:15 09/29/17 08:34 General appearance: no acute distress - EENT Eyes: PERRL ENT: hearing intact, clear oral mucosa, no thrush - Respiratory Respiratory effort: normal Respiratory: bilateral: CTA - Cardiovascular Rhythm: regular Heart Sounds: Present: S1 & S2 - Gastrointestinal General gastrointestinal: Present: soft, non-tender, non-distended - Labs CBC & Chem 7: 09/28/17 13:17 09/29/17 07:04 Labs: Laboratory Results - last 24 hr 09/28/17 09/29/17 13:17 07:04 WBC 6.7 RBC 3.78 Hgb 11.6 Hct 35.3 MCV 94 MCH 31 MCHC 33 RDW 18.4 H Plt Count 66 L Lymph % (Auto) 10.6 L [place] % (Auto) 12.2 H Eos % (Auto) 2.1 Baso % (Auto) 0.6 Lymph # 0.7 L [place] # 0.8 Eos # 0.1 Baso # 0.0 Seg Neutrophils % 74.5 H Seg Neutrophils # 5.0 Sodium 137 Potassium 4.5 Chloride 93.4 L Carbon Dioxide 25 Anion Gap 23 BUN 64 H Creatinine 8.5 H Estimated GFR 5 BUN/Creatinine Ratio 8 Glucose 101 H Calcium 10.0 Total Bilirubin 1.10 AST 27 ALT 19 Alkaline Phosphatase 86 Total Protein 6.5 Albumin 3.3 L Albumin/Globulin Ratio 1.0
--- NOTE | 2017-09-29 12:47 | Progress Note ---
Assessment and Plan Symptomatic Bradycardia Complete Heart Block Pulmonary HTN (Sever by 2D ECHO) Chronic Hypoxemic Resp Failure ESRD on Dialysis HTN Thrombocytopenia - s/p PPM - continue supplemental oxygen to keep sats > 90% - continue bronchodilators and pulmonary toilet - re-introduce PD5 inhibitor therapy for Pulm HTN and tolerating well so far ( Revatio 20mg po bid) - will advance to tid therapy shortly isf continues to tolrate - optimize cardiac therapy per process specialist - gastric emptying study documents gastroparesis; management per GI team - continue HD/UF per nephrology prescription - Adjust antihypertensives per nephrology - continue GI & VTE prophylaxis - follow platelet count ...re-evaluate in am & prn Subjective Date of service: 09/29/17 Principal diagnosis: Gastroparesis, rectal bleeding, N/V, gallstones Interval history: Patient is seen today for: Complete Heart Block; Symptomatic Bradycardia; Hypoxemic Resp Failure Seen and examined at bedside; 24hour events reviewed; nursing and respiratory care staff consulted; no adverse overnight events reported to me; resting in bed ; remains on oxygen; no chest pains or palpitation; no gross hemoptysis Objective Vital Signs - 12hr 09/29/17 09/29/17 09/29/17 03:33 05:12 07:52 Temperature 98.0 F Pulse Rate 58 L 60 Pulse Rate [ 64 Anterior Bilateral Throughout] Respiratory 18 Rate Respiratory 18 Rate [Anterior Bilateral Throughout] Blood Pressure 120/57 O2 Sat by Pulse 94 98 Oximetry 09/29/17 09/29/17 09/29/17 08:02 08:34 09:20 Temperature 98.5 F 97.2 F L Pulse Rate 64 67 Pulse Rate [ 62 Anterior Bilateral Throughout] Respiratory 18 18 Rate Respiratory 18 Rate [Anterior Bilateral Throughout] Blood Pressure 128/69 151/80 O2 Sat by Pulse 96 Oximetry 09/29/17 09/29/17 09/29/17 09:30 09:45 10:00 Temperature Pulse Rate 70 63 63 Pulse Rate [ Anterior Bilateral Throughout] Respiratory 18 Rate Respiratory Rate [Anterior Bilateral Throughout] Blood Pressure 147/75 134/67 139/69 O2 Sat by Pulse Oximetry 09/29/17 09/29/17 09/29/17 10:15 10:30 10:45 Temperature Pulse Rate 62 63 69 Pulse Rate [ Anterior Bilateral Throughout] Respiratory Rate Respiratory Rate [Anterior Bilateral Throughout] Blood Pressure 138/67 126/66 153/78 O2 Sat by Pulse Oximetry 09/29/17 09/29/17 09/29/17 11:00 11:15 11:30 Temperature Pulse Rate 63 64 63 Pulse Rate [ Anterior Bilateral Throughout] Respiratory Rate Respiratory Rate [Anterior Bilateral Throughout] Blood Pressure 169/76 134/64 125/66 O2 Sat by Pulse Oximetry 09/29/17 09/29/17 11:45 12:00 Temperature Pulse Rate 63 65 Pulse Rate [ Anterior Bilateral Throughout] Respiratory Rate Respiratory Rate [Anterior Bilateral Throughout] Blood Pressure 140/69 141/72 O2 Sat by Pulse Oximetry Constitutional: no acute distress, alert Eyes: non-icteric ENT: oropharynx moist, other (mallampatti 2) Neck: supple, no lymphadenopathy, no JVD, other (No thyromegaly) Effort: mildly labored Ascultation: Bilateral: clear, diminished breath sounds Percussion: Bilateral: not dull Cardiovascular: regular rate and rhythm, other (S1,S2 no murmurs, active precordium) Gastrointestinal: normoactive bowel sounds, soft, non-tender, non-distended, other (no palpable HSM) Integumentary: normal, other (right forearm AV-graft) Extremities: no cyanosis, no edema, pulses normal, no ischemia or petechiae Neurologic: normal mental status, non-focal exam, pupils equal and round, motor strength normal and Psychiatric: mood appropriate, affect normal CBC and BMP: 09/30/17 05:43 09/29/17 07:04 ABG, PT/INR, D-dimer: ABG POC ABG pH 7.361 (7.35-7.45) 09/15/17 22:00 POC ABG pCO2 40.1 (35-45) 09/15/17 22:00 POC ABG pO2 56 (80-105) L 09/15/17 22:00 POC ABG HCO3 22.7 09/15/17 22:00 POC ABG Total CO2 24 09/15/17 22:00 POC ABG O2 Sat 88 09/15/17 22:00 PT/INR, D-dimer PT 14.5 Sec. (12.2-14.9) 09/18/17 04:15 INR 1.07 (0.87-1.13) 09/18/17 04:15 Abnormal lab findings: Abnormal Labs 09/15/17 09/15/17 09/15/17 13:44 13:44 13:44 RDW 16.8 H Plt Count 86 L Lymph % (Auto) [place] % (Auto) Lymph # 0.9 L [place] # Seg Neutrophils % 72.2 H Seg Neuts % (Manual) Lymphocytes % (Manual) Seg Neutrophils # Seg Neutrophils # Man Lymphocytes # (Manual) Percent Retic PT 16.3 H INR 1.24 H APTT 37.3 H POC ABG pO2 Potassium Chloride 107.2 H Carbon Dioxide 19 L BUN 58 H Creatinine 9.6 H Glucose 173 H POC Glucose Phosphorus Magnesium 2.40 H Ferritin Total Bilirubin AST ALT Total Protein 5.3 L Albumin 3.3 L Lipase Vitamin B12 09/15/17 09/16/17 09/16/17 22:00 04:04 07:35 RDW Plt Count Lymph % (Auto) [place] % (Auto) Lymph # [place] # Seg Neutrophils % Seg Neuts % (Manual) Lymphocytes % (Manual) Seg Neutrophils # Seg Neutrophils # Man Lymphocytes # (Manual) Percent Retic PT INR APTT POC ABG pO2 56 L Potassium Chloride Carbon Dioxide 20 L BUN 65 H Creatinine 10.5 H Glucose POC Glucose 62 L Phosphorus Magnesium 2.50 H Ferritin Total Bilirubin AST ALT Total Protein Albumin Lipase Vitamin B12 09/16/17 09/16/17 09/17/17 08:44 23:31 01:13 RDW Plt Count Lymph % (Auto) [place] % (Auto) Lymph # [place] # Seg Neutrophils % Seg Neuts % (Manual) Lymphocytes % (Manual) Seg Neutrophils # Seg Neutrophils # Man Lymphocytes # (Manual) Percent Retic PT INR APTT POC ABG pO2 Potassium Chloride Carbon Dioxide BUN Creatinine Glucose POC Glucose 143 H 66 L 118 H Phosphorus Magnesium Ferritin Total Bilirubin AST ALT Total Protein Albumin Lipase Vitamin B12 09/17/17 09/17/17 09/17/17 05:46 11:13 11:13 RDW 15.9 H Plt Count 72 L Lymph % (Auto) [place] % (Auto) Lymph # [place] # Seg Neutrophils % Seg Neuts % (Manual) Lymphocytes % (Manual) Seg Neutrophils # Seg Neutrophils # Man Lymphocytes # (Manual) Percent Retic PT INR APTT POC ABG pO2 Potassium 5.2 H Chloride Carbon Dioxide 21 L BUN 49 H Creatinine 10.1 H Glucose POC Glucose 67 L Phosphorus Magnesium Ferritin Total Bilirubin AST ALT Total Protein Albumin Lipase Vitamin B12 09/17/17 09/18/17 09/18/17 17:36 04:15 04:15 RDW 16.3 H Plt Count 71 L Lymph % (Auto) [place] % (Auto) 11.1 H Lymph # 1.0 L [place] # Seg Neutrophils % 70.3 H Seg Neuts % (Manual) Lymphocytes % (Manual) Seg Neutrophils # Seg Neutrophils # Man Lymphocytes # (Manual) Percent Retic PT INR APTT POC ABG pO2 Potassium 5.3 H Chloride 95.3 L Carbon Dioxide BUN 28 H Creatinine 6.3 H Glucose 123 H POC Glucose 118 H Phosphorus Magnesium Ferritin Total Bilirubin AST ALT Total Protein Albumin Lipase Vitamin B12 09/18/17 09/19/17 09/20/17 05:14 11:23 09:11 RDW 15.8 H Plt Count 46 L Lymph % (Auto) 6.9 L [place] % (Auto) Lymph # 0.7 L [place] # Seg Neutrophils % 86.3 H Seg Neuts % (Manual) Lymphocytes % (Manual) Seg Neutrophils # 9.4 H Seg Neutrophils # Man Lymphocytes # (Manual) Percent Retic PT INR APTT POC ABG pO2 Potassium Chloride Carbon Dioxide BUN Creatinine Glucose POC Glucose 116 H 121 H Phosphorus Magnesium Ferritin Total Bilirubin AST ALT Total Protein Albumin Lipase Vitamin B12 09/20/17 09/21/17 09/22/17 09:11 08:02 06:37 RDW 15.6 H Plt Count 52 L Lymph % (Auto) [place] % (Auto) Lymph # [place] # Seg Neutrophils % Seg Neuts % (Manual) Lymphocytes % (Manual) Seg Neutrophils # Seg Neutrophils # Man Lymphocytes # (Manual) Percent Retic PT INR APTT POC ABG pO2 Potassium 5.9 H D Chloride 95.2 L 93.9 L Carbon Dioxide 18 L 21 L BUN 52 H 72 H Creatinine 6.6 H 8.2 H Glucose 112 H POC Glucose Phosphorus 8.10 H Magnesium Ferritin Total Bilirubin AST ALT Total Protein Albumin Lipase 67 H Vitamin B12 09/22/17 09/23/17 09/23/17 06:37 05:49 05:49 RDW 16.1 H Plt Count 53 L Lymph % (Auto) [place] % (Auto) Lymph # [place] # Seg Neutrophils % Seg Neuts % (Manual) 81.0 H Lymphocytes % (Manual) 7.0 L Seg Neutrophils # Seg Neutrophils # Man 7.9 H Lymphocytes # (Manual) 0.7 L Percent Retic PT INR APTT POC ABG pO2 Potassium Chloride 94.4 L 90.8 L Carbon Dioxide BUN 95 H 61 H Creatinine 10.2 H 7.3 H Glucose 104 H 112 H POC Glucose Phosphorus 5.30 H Magnesium Ferritin Total Bilirubin 1.30 H AST 533 H ALT 143 H Total Protein 5.9 L Albumin 3.8 L Lipase Vitamin B12 09/26/17 09/26/17 09/27/17 05:51 05:51 08:17 RDW 17.1 H 17.4 H Plt Count 45 L 56 L Lymph % (Auto) [place] % (Auto) 14.9 H 14.6 H Lymph # 1.0 L 1.0 L Crisp # 1.0 H 1.0 H Seg Neutrophils % Seg Neuts % (Manual) Lymphocytes % (Manual) Seg Neutrophils # Seg Neutrophils # Man Lymphocytes # (Manual) Percent Retic 6.48 H PT INR APTT POC ABG pO2 Potassium Chloride 94.5 L Carbon Dioxide 21 L BUN 60 H Creatinine 7.1 H Glucose POC Glucose Phosphorus Magnesium Ferritin Total Bilirubin 1.70 H AST 84 H ALT Total Protein 6.0 L Albumin 3.0 L Lipase Vitamin B12 09/27/17 09/27/17 09/28/17 08:17 08:17 06:03 RDW 16.9 H Plt Count 62 L Lymph % (Auto) [place] % (Auto) 13.4 H Lymph # 1.1 L Crisp # 0.9 H Seg Neutrophils % Seg Neuts % (Manual) Lymphocytes % (Manual) Seg Neutrophils # Seg Neutrophils # Man Lymphocytes # (Manual) Percent Retic PT INR APTT POC ABG pO2 Potassium Chloride Carbon Dioxide BUN Creatinine Glucose POC Glucose Phosphorus Magnesium Ferritin 1889.0 H Total Bilirubin AST ALT Total Protein Albumin Lipase Vitamin B12 > 2000 H 09/28/17 09/29/17 13:17 07:04 RDW 18.4 H Plt Count 66 L Lymph % (Auto) 10.6 L [place] % (Auto) 12.2 H Lymph # 0.7 L Crisp # Seg Neutrophils % 74.5 H Seg Neuts % (Manual) Lymphocytes % (Manual) Seg Neutrophils # Seg Neutrophils # Man Lymphocytes # (Manual) Percent Retic PT INR APTT POC ABG pO2 Potassium Chloride 93.4 L Carbon Dioxide BUN 64 H Creatinine 8.5 H Glucose 101 H POC Glucose Phosphorus Magnesium Ferritin Total Bilirubin AST ALT Total Protein Albumin 3.3 L Lipase Vitamin B12 Allied health notes reviewed: nursing
--- NOTE | 2017-09-29 13:38 | Progress Note ---
Assessment and Plan 57 YO Female with HTN, ESRD on HD(M,W,F), COPD, Chronic Respiratory Failure on 3L Home oxygen, Diastolic CHF, Pulmonary HTN, SDH who was brought to hospital for AMS and bradycardia to 20s /Dysphagia and vomiting MBS done and she is tolerating PO without aspirating EGD shows no outlet obstruction s/p NM gastric emptying study to r/o gastroparesis Gastric emptying study shows significant gastroparesis: dw GI. She is to have small frequent meals. She is improving /Toxic Metabolic encephalopathy now resolved, likely due to periop meds /Cardiogenic shock, improved Cardiology following, Pt is s/p TVP placement, s/p PPM placement 09/18/17 / hyperkalemia resolved with HD / HTN, uncontrolled meds optimized /Acute on chronic respiratory failure likely from cardiogenic shock, and underlying COPD CXR suggestive for pulmonary congestion she is on home O2 cont supplemental O2, duenebs, now resolved / COPD cont O2 n/c. and nebulizer /CHB (complete heart block) Cardiology consulted, s/p Transcutaneous pacing, Pt taken urgently to slab tripper for intervention. s/p PPM placement on 09/18/17 / ESRD has h/o renal transplant Nephrology consulted for dialysis, monitor uop q shift, dialysis per renal. 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 now closely monitor with frequent neuro assessment /DVT prophylaxis lovenox History Interval history: Patient is eating lunch, tolerating diet Updated Family at bedside Hospitalist Physical - Physical exam Narrative exam: General.: Appears well, no distress, nontoxic HEENT: Moist mucous membranes, extraocular muscles intact, no lymphadenopathy Neck: supple Cardiac: S1-S2 heard Lungs: clear to auscultation bilaterally Abdomen: soft , nontender, nondistended, bowel sounds positive Extremities: no edema clubbing or cyanosis Skin: no rash or lesions Neurologic: no gross focal deficits Psych: appropriate behavior, appropriate mood, corporative, judgment intact Subjective Date of service: 09/29/17 Principal diagnosis: Gastroparesis, rectal bleeding, N/V, gallstones Objective - Constitutional Vitals: Vital Signs - 12hr 09/29/17 09/29/17 09/29/17 03:33 05:12 07:52 Temperature 98.0 F Pulse Rate 58 L 60 Pulse Rate [ 64 Anterior Bilateral Throughout] Respiratory 18 Rate Respiratory 18 Rate [Anterior Bilateral Throughout] Blood Pressure 120/57 O2 Sat by Pulse 94 98 Oximetry 09/29/17 09/29/17 09/29/17 08:02 08:34 09:20 Temperature 98.5 F 97.2 F L Pulse Rate 64 67 Pulse Rate [ 62 Anterior Bilateral Throughout] Respiratory 18 18 Rate Respiratory 18 Rate [Anterior Bilateral Throughout] Blood Pressure 128/69 151/80 O2 Sat by Pulse 96 Oximetry 09/29/17 09/29/17 09/29/17 09:30 09:45 10:00 Temperature Pulse Rate 70 63 63 Pulse Rate [ Anterior Bilateral Throughout] Respiratory 18 Rate Respiratory Rate [Anterior Bilateral Throughout] Blood Pressure 147/75 134/67 139/69 O2 Sat by Pulse Oximetry 09/29/17 09/29/17 09/29/17 10:15 10:30 10:45 Temperature Pulse Rate 62 63 69 Pulse Rate [ Anterior Bilateral Throughout] Respiratory Rate Respiratory Rate [Anterior Bilateral Throughout] Blood Pressure 138/67 126/66 153/78 O2 Sat by Pulse Oximetry 09/29/17 09/29/17 09/29/17 11:00 11:15 11:30 Temperature Pulse Rate 63 64 63 Pulse Rate [ Anterior Bilateral Throughout] Respiratory Rate Respiratory Rate [Anterior Bilateral Throughout] Blood Pressure 169/76 134/64 125/66 O2 Sat by Pulse Oximetry 09/29/17 09/29/17 11:45 12:00 Temperature Pulse Rate 63 65 Pulse Rate [ Anterior Bilateral Throughout] Respiratory Rate Respiratory Rate [Anterior Bilateral Throughout] Blood Pressure 140/69 141/72 O2 Sat by Pulse Oximetry - Labs CBC & Chem 7: 09/30/17 05:43 09/29/17 07:04 Labs: Abnormal lab results 09/28/17 09/29/17 Range/Units 13:17 07:04 RDW 18.4 H (13.2-15.2) % Plt Count 66 L (140-440) K/mm3 Lymph % (Auto) 10.6 L (13.4-35.0) % [place] % (Auto) 12.2 H (0.0-7.3) % Lymph # 0.7 L (1.2-5.4) K/mm3 Seg Neutrophils % 74.5 H (40.0-70.0) % Chloride 93.4 L (98-107) mmol/L BUN 64 H (7-17) mg/dL Creatinine 8.5 H (0.7-1.2) mg/dL Glucose 101 H (65-100) mg/dL Albumin 3.3 L (3.9-5) g/dL
[2017-09-29] MEDS: PERCOCET 5/325 PO PRN (17:38)
[2017-09-29] MEDS: SENOKOT S PO SCH (21:21)
[2017-09-30 06:03] LABS: Basophils % (Auto) 0.7 % (0.0-1.8); Eosinophils # (Auto) 0.2 K/mm3 (0.0-0.4); Eosinophils % (Auto) 2.7 % (0.0-4.3); Hematocrit 37.7 % (30.3-42.9); Hemoglobin 12.2 gm/dl (10.1-14.3); Lymphocytes # (Auto) 1.1 K/mm3 (1.2-5.4); Lymphocytes % (Auto) 16.7 % (13.4-35.0); Mean Corpuscular HGB Conc 32 % (30-34); Mean Corpuscular Hemoglobin 30 pg (28-32); Mean Corpuscular Volume 95 fl (79-97); Monocytes # (Auto) 0.9 K/mm3 (0.0-0.8); Monocytes % (Auto) 13.9 % (0.0-7.3); Red Blood Count 3.99 M/mm3 (3.65-5.03); Red Cell Distribution Width 17.7 % (13.2-15.2)
[2017-09-30 06:24] LABS: Platelet Count 87 K/mm3 (140-440)
[2017-09-30] MEDS: DUONEB *Not for PRN Use IH SCH ×3 (08:22→20:43)
--- NOTE | 2017-09-30 10:19 | Gastroenterology Progress Note ---
Assessment and Plan (1) Nausea & vomiting - Intractable, since PM placement last week (but ?symptoms before this per notes ); slowly improving over the last 3 days. pt reports no further vomiting today, she is tolerating her soft mechanical diet at this point. - Could be from gastroparesis, gallstones, or renal disease; doubt PM causative. - Likely not a surgical candidate for cholecystectomy at present. - CT A/P shows no obstruction, and GES (+) for gastroparesis. - Would pursue low-volume/gastroparesis diet at present> tolerating at this time. - No further recs at present unless clinical worsening. (2) Gallstones Current Visit: Yes Status: Acute Plan to address problem: - Gallstones, thickened GB wall, and elevated LFTs, but no RUQ pain, only N/V ( likely from gastroparesis). - Unable to get HIDA scan until 3-5 days after gastroparesis study. Today is day #3- can consider over next 24 hours if warranted ( no RUQ pain) - CT scan does not confirm GB inflammation, and I would not pursue surgery/ surgical consult unless significant worsening. (3) Elevated liver enzymes Current Visit: Yes Status: Acute Plan to address problem: - Resolved. - likely related to underlying gallstone disease, but shock liver from hypotension/dehydration from vomiting is also possible. - Hepatitis testing negative at HD center by report. - CT scan negative for liver lesions or signs of chronic liver disease. - Liver enzymes resolved (09/29) and would not get ERCP unless obvious GS given comorbids; CT and US show no obstruction stone (and unable to get MRCP due to new pacemaker). (4) Gastroparesis Current Visit: Yes Status: Acute Plan to address problem: - Unclear if primary or secondary; will continue mechanical soft diet. - Reglan PRN; will d/c zofran. - Emphasized small, frequent meals to patient. (5) Rectal hemorrhage Current Visit: Yes Status: Acute Plan to address problem: - Resolved. - Likely hemorrhoidal or rectal ulcer given severe constipation with need for suppository. - Will place on daily sennakot. - No BM yesterday or today per nursing. Will add daily Miralax. - H/H WNL ; colonoscopy if progresses, but comorbids would make this relatively contraindicated at present. Subjective Date of service: 09/30/17 Principal diagnosis: Gastroparesis, rectal bleeding, N/V, gallstones Interval history: No acute events overnight. Pt reports no vomiting this AM, nursing confirms this. Objective - Constitutional Vitals: Temp Pulse Resp BP Pulse Ox 99.3 F 69 18 123/65 98 09/30/17 05:49 09/30/17 05:49 09/30/17 08:34 09/30/17 05:49 09/30/17 05:49 General appearance: no acute distress - EENT Eyes: EOM intact ENT: hearing intact - Neck Neck: supple - Cardiovascular Rhythm: regular - Extremities Extremities: abnormal (HD graft to right arm.) - Gastrointestinal General gastrointestinal: Present: soft, non-tender, non-distended - Integumentary Integumentary: Present: warm, dry - Labs CBC & Chem 7: 09/30/17 05:43 09/29/17 07:04 Labs: Laboratory Results - last 24 hr 09/27/17 09/30/17 08:17 05:43 WBC 6.5 RBC 3.99 Hgb 12.2 Hct 37.7 MCV 95 MCH 30 MCHC 32 RDW 17.7 H Plt Count 87 L Lymph % (Auto) 16.7 [place] % (Auto) 13.9 H Eos % (Auto) 2.7 Baso % (Auto) 0.7 Lymph # 1.1 L [place] # 0.9 H Eos # 0.2 Baso # 0.0 Seg Neutrophils % 66.0 Seg Neutrophils # 4.3 Percent Retic 2.47 RBC Folic Acid 943
[2017-09-30] MEDS: PROTONIX PO SCH (11:04)
[2017-09-30] MEDS: REVATIO PO SCH ×2 (11:04→21:34)
[2017-09-30] MEDS: CARAFATE PO SCH ×4 (11:04→21:33)
[2017-09-30] MEDS: PROCARDIA XL PO SCH (11:04)
[2017-09-30] MEDS: MIRALAX 3350 PO SCH (11:04)
[2017-09-30] MEDS: LOPRESSOR PO SCH ×2 (11:04→21:34)
[2017-09-30] MEDS: PERCOCET 5/325 PO PRN ×2 (11:12→19:25)
--- NOTE | 2017-09-30 11:17 | Progress Note ---
Assessment and Plan Impression * End-stage renal disease on maintenance hemodialysis * Complete heart block * Hypertension * Anemia secondary to ESRD * Nausea and vomiting * Malfunctioning AV fistula * Thrombocytopenia * Abnormal LFTs Recommendations * Continue hemodialysis on Mondays, Wednesdays and Fridays schedule for now * Patient is status post permanent pacemaker placement * She had angiogram and angioplasty done of her AV fistula by [facility] vascular * Adjust diet and meds for ESRD state * Procrit with dialysis * No IV, BP of any puncture in her access arm * Her LFTs seems to have improved significantly. She is being followed by GI services. Workup in progress. * She is also noted to have thrombocytopenia. hematology evaluation appreciated. Platelet count is improving * Patient states that she does not get itching any longer with the current dialyzer that is being used. Shall try to switch her to Optiflux F180 at the clinic as well Subjective Date of service: 09/30/17 Principal diagnosis: Gastroparesis, rectal bleeding, N/V, gallstones Interval history: Patient is comfortable today. Denies any shortness of breath. Nausea and vomiting improving. Objective - Vital Signs Vital signs: Vital Signs - 12hr 09/30/17 09/30/17 09/30/17 00:16 05:00 05:49 Temperature 97.8 F 99.3 F Pulse Rate 60 62 69 Pulse Rate [ Anterior Bilateral Throughout] Respiratory 20 20 Rate Respiratory Rate [Anterior Bilateral Throughout] Blood Pressure 117/62 123/65 O2 Sat by Pulse 97 98 Oximetry 09/30/17 09/30/17 09/30/17 08:15 08:23 08:25 Temperature 98.5 F Pulse Rate 67 Pulse Rate [ 68 67 Anterior Bilateral Throughout] Respiratory 16 Rate Respiratory 18 18 Rate [Anterior Bilateral Throughout] Blood Pressure 162/80 O2 Sat by Pulse 98 Oximetry 09/30/17 09/30/17 08:34 10:00 Temperature Pulse Rate Pulse Rate [ Anterior Bilateral Throughout] Respiratory 18 Rate Respiratory Rate [Anterior Bilateral Throughout] Blood Pressure O2 Sat by Pulse 98 Oximetry - General Appearance General appearance: chronically ill, frail EENT: PERRL, mucous membranes moist Neck: no JVD, no thyromegaly, no carotid bruit, supple Respiratory: Present: Clear to Ascultation Cardiology: regular, normal heart rate, S1S2, no murmurs Gastrointestinal: normal, normoactive bowel sounds Integumentary: other (AV fistula in her right forearm. Good bruit and thrill.) - Lab 09/30/17 05:43 09/29/17 07:04 Most recent lab results Calcium 10.0 mg/dL (8.4-10.2) 09/29/17 07:04 Phosphorus 5.30 mg/dL (2.5-4.5) H 09/23/17 05:49 Magnesium 2.10 mg/dL (1.7-2.3) 09/23/17 05:49
--- NOTE | 2017-09-30 12:10 | Progress Note ---
Assessment and Plan Patient alert, awake. Eating her lunch.. No acute respiratory distress.O2 saturation 98% on 3 litres O2. - Patient Problems (1) Pulmonary hypertension Current Visit: Yes Status: Acute Plan to address problem: Patient started back in [place]. Continue O2 supplementation. (2) CHB (complete heart block) Current Visit: Yes Status: Acute Plan to address problem: Patient has pacemaker implantation. (3) Chronic respiratory failure with hypoxia Current Visit: Yes Status: Acute Plan to address problem: O2 supplementation 3 litres via nasal canula. Albuterol/atrovent aerosol treatments q 6 hours. (4) ESRD (end stage renal disease) Current Visit: Yes Status: Acute Plan to address problem: Management as per nephrology. (5) Hypertension Current Visit: Yes Status: Acute Plan to address problem: Management as per primary care. Subjective Date of service: 09/30/17 Principal diagnosis: Gastroparesis, rectal bleeding, N/V, gallstones Interval history: Patient alert, awake. Eating her lunch.. No acute respiratory distress.O2 saturation 98% on 3 litres O2. Objective Vital Signs - 12hr 09/30/17 09/30/17 09/30/17 00:16 05:00 05:49 Temperature 97.8 F 99.3 F Pulse Rate 60 62 69 Pulse Rate [ Anterior Bilateral Throughout] Respiratory 20 20 Rate Respiratory Rate [Anterior Bilateral Throughout] Blood Pressure 117/62 123/65 O2 Sat by Pulse 97 98 Oximetry 09/30/17 09/30/17 09/30/17 08:15 08:23 08:25 Temperature 98.5 F Pulse Rate 67 Pulse Rate [ 68 67 Anterior Bilateral Throughout] Respiratory 16 Rate Respiratory 18 18 Rate [Anterior Bilateral Throughout] Blood Pressure 162/80 O2 Sat by Pulse 98 Oximetry 09/30/17 09/30/17 08:34 10:00 Temperature Pulse Rate Pulse Rate [ Anterior Bilateral Throughout] Respiratory 18 Rate Respiratory Rate [Anterior Bilateral Throughout] Blood Pressure O2 Sat by Pulse 98 Oximetry Constitutional: no acute distress, alert Eyes: non-icteric ENT: oropharynx moist, other (mallampatti 2) Neck: supple, no lymphadenopathy, no JVD, other (No thyromegaly) Effort: mildly labored Ascultation: Bilateral: diminished breath sounds Percussion: Bilateral: not dull Cardiovascular: regular rate and rhythm, other (S1,S2 no murmurs, active precordium) Gastrointestinal: normoactive bowel sounds, soft, non-tender, non-distended, other (no palpable HSM) Integumentary: normal, other (right forearm AV-graft) Extremities: no cyanosis, no edema, pulses normal, no ischemia or petechiae Neurologic: normal mental status, non-focal exam, pupils equal and round, motor strength normal and Psychiatric: mood appropriate, affect normal CBC and BMP: 09/30/17 05:43 09/29/17 07:04 ABG, PT/INR, D-dimer: ABG POC ABG pH 7.361 (7.35-7.45) 09/15/17 22:00 POC ABG pCO2 40.1 (35-45) 09/15/17 22:00 POC ABG pO2 56 (80-105) L 09/15/17 22:00 POC ABG HCO3 22.7 09/15/17 22:00 POC ABG Total CO2 24 09/15/17 22:00 POC ABG O2 Sat 88 09/15/17 22:00 PT/INR, D-dimer PT 14.5 Sec. (12.2-14.9) 09/18/17 04:15 INR 1.07 (0.87-1.13) 09/18/17 04:15 Abnormal lab findings: Abnormal Labs 09/15/17 09/15/17 09/15/17 13:44 13:44 13:44 RDW 16.8 H Plt Count 86 L Lymph % (Auto) [place] % (Auto) Lymph # 0.9 L [place] # Seg Neutrophils % 72.2 H Seg Neuts % (Manual) Lymphocytes % (Manual) Seg Neutrophils # Seg Neutrophils # Man Lymphocytes # (Manual) Percent Retic PT 16.3 H INR 1.24 H APTT 37.3 H POC ABG pO2 Potassium Chloride 107.2 H Carbon Dioxide 19 L BUN 58 H Creatinine 9.6 H Glucose 173 H POC Glucose Phosphorus Magnesium 2.40 H Ferritin Total Bilirubin AST ALT Total Protein 5.3 L Albumin 3.3 L Lipase Vitamin B12 09/15/17 09/16/17 09/16/17 22:00 04:04 07:35 RDW Plt Count Lymph % (Auto) [place] % (Auto) Lymph # [place] # Seg Neutrophils % Seg Neuts % (Manual) Lymphocytes % (Manual) Seg Neutrophils # Seg Neutrophils # Man Lymphocytes # (Manual) Percent Retic PT INR APTT POC ABG pO2 56 L Potassium Chloride Carbon Dioxide 20 L BUN 65 H Creatinine 10.5 H Glucose POC Glucose 62 L Phosphorus Magnesium 2.50 H Ferritin Total Bilirubin AST ALT Total Protein Albumin Lipase Vitamin B12 09/16/17 09/16/17 09/17/17 08:44 23:31 01:13 RDW Plt Count Lymph % (Auto) [place] % (Auto) Lymph # [place] # Seg Neutrophils % Seg Neuts % (Manual) Lymphocytes % (Manual) Seg Neutrophils # Seg Neutrophils # Man Lymphocytes # (Manual) Percent Retic PT INR APTT POC ABG pO2 Potassium Chloride Carbon Dioxide BUN Creatinine Glucose POC Glucose 143 H 66 L 118 H Phosphorus Magnesium Ferritin Total Bilirubin AST ALT Total Protein Albumin Lipase Vitamin B12 09/17/17 09/17/17 09/17/17 05:46 11:13 11:13 RDW 15.9 H Plt Count 72 L Lymph % (Auto) [place] % (Auto) Lymph # [place] # Seg Neutrophils % Seg Neuts % (Manual) Lymphocytes % (Manual) Seg Neutrophils # Seg Neutrophils # Man Lymphocytes # (Manual) Percent Retic PT INR APTT POC ABG pO2 Potassium 5.2 H Chloride Carbon Dioxide 21 L BUN 49 H Creatinine 10.1 H Glucose POC Glucose 67 L Phosphorus Magnesium Ferritin Total Bilirubin AST ALT Total Protein Albumin Lipase Vitamin B12 09/17/17 09/18/17 09/18/17 17:36 04:15 04:15 RDW 16.3 H Plt Count 71 L Lymph % (Auto) [place] % (Auto) 11.1 H Lymph # 1.0 L [place] # Seg Neutrophils % 70.3 H Seg Neuts % (Manual) Lymphocytes % (Manual) Seg Neutrophils # Seg Neutrophils # Man Lymphocytes # (Manual) Percent Retic PT INR APTT POC ABG pO2 Potassium 5.3 H Chloride 95.3 L Carbon Dioxide BUN 28 H Creatinine 6.3 H Glucose 123 H POC Glucose 118 H Phosphorus Magnesium Ferritin Total Bilirubin AST ALT Total Protein Albumin Lipase Vitamin B12 09/18/17 09/19/17 09/20/17 05:14 11:23 09:11 RDW 15.8 H Plt Count 46 L Lymph % (Auto) 6.9 L [place] % (Auto) Lymph # 0.7 L [place] # Seg Neutrophils % 86.3 H Seg Neuts % (Manual) Lymphocytes % (Manual) Seg Neutrophils # 9.4 H Seg Neutrophils # Man Lymphocytes # (Manual) Percent Retic PT INR APTT POC ABG pO2 Potassium Chloride Carbon Dioxide BUN Creatinine Glucose POC Glucose 116 H 121 H Phosphorus Magnesium Ferritin Total Bilirubin AST ALT Total Protein Albumin Lipase Vitamin B12 09/20/17 09/21/17 09/22/17 09:11 08:02 06:37 RDW 15.6 H Plt Count 52 L Lymph % (Auto) [place] % (Auto) Lymph # [place] # Seg Neutrophils % Seg Neuts % (Manual) Lymphocytes % (Manual) Seg Neutrophils # Seg Neutrophils # Man Lymphocytes # (Manual) Percent Retic PT INR APTT POC ABG pO2 Potassium 5.9 H D Chloride 95.2 L 93.9 L Carbon Dioxide 18 L 21 L BUN 52 H 72 H Creatinine 6.6 H 8.2 H Glucose 112 H POC Glucose Phosphorus 8.10 H Magnesium Ferritin Total Bilirubin AST ALT Total Protein Albumin Lipase 67 H Vitamin B12 09/22/17 09/23/17 09/23/17 06:37 05:49 05:49 RDW 16.1 H Plt Count 53 L Lymph % (Auto) [place] % (Auto) Lymph # [place] # Seg Neutrophils % Seg Neuts % (Manual) 81.0 H Lymphocytes % (Manual) 7.0 L Seg Neutrophils # Seg Neutrophils # Man 7.9 H Lymphocytes # (Manual) 0.7 L Percent Retic PT INR APTT POC ABG pO2 Potassium Chloride 94.4 L 90.8 L Carbon Dioxide BUN 95 H 61 H Creatinine 10.2 H 7.3 H Glucose 104 H 112 H POC Glucose Phosphorus 5.30 H Magnesium Ferritin Total Bilirubin 1.30 H AST 533 H ALT 143 H Total Protein 5.9 L Albumin 3.8 L Lipase Vitamin B12 09/26/17 09/26/17 09/27/17 05:51 05:51 08:17 RDW 17.1 H 17.4 H Plt Count 45 L 56 L Lymph % (Auto) [place] % (Auto) 14.9 H 14.6 H Lymph # 1.0 L 1.0 L [place] # 1.0 H 1.0 H Seg Neutrophils % Seg Neuts % (Manual) Lymphocytes % (Manual) Seg Neutrophils # Seg Neutrophils # Man Lymphocytes # (Manual) Percent Retic 6.48 H PT INR APTT POC ABG pO2 Potassium Chloride 94.5 L Carbon Dioxide 21 L BUN 60 H Creatinine 7.1 H Glucose POC Glucose Phosphorus Magnesium Ferritin Total Bilirubin 1.70 H AST 84 H ALT Total Protein 6.0 L Albumin 3.0 L Lipase Vitamin B12 09/27/17 09/27/17 09/28/17 08:17 08:17 06:03 RDW 16.9 H Plt Count 62 L Lymph % (Auto) [place] % (Auto) 13.4 H Lymph # 1.1 L [place] # 0.9 H Seg Neutrophils % Seg Neuts % (Manual) Lymphocytes % (Manual) Seg Neutrophils # Seg Neutrophils # Man Lymphocytes # (Manual) Percent Retic PT INR APTT POC ABG pO2 Potassium Chloride Carbon Dioxide BUN Creatinine Glucose POC Glucose Phosphorus Magnesium Ferritin 1889.0 H Total Bilirubin AST ALT Total Protein Albumin Lipase Vitamin B12 > 2000 H 09/28/17 09/29/17 09/30/17 13:17 07:04 05:43 RDW 18.4 H 17.7 H Plt Count 66 L 87 L Lymph % (Auto) 10.6 L [place] % (Auto) 12.2 H 13.9 H Lymph # 0.7 L 1.1 L [place] # 0.9 H Seg Neutrophils % 74.5 H Seg Neuts % (Manual) Lymphocytes % (Manual) Seg Neutrophils # Seg Neutrophils # Man Lymphocytes # (Manual) Percent Retic PT INR APTT POC ABG pO2 Potassium Chloride 93.4 L Carbon Dioxide BUN 64 H Creatinine 8.5 H Glucose 101 H POC Glucose Phosphorus Magnesium Ferritin Total Bilirubin AST ALT Total Protein Albumin 3.3 L Lipase Vitamin B12 Allied health notes reviewed: nursing
--- NOTE | 2017-09-30 15:21 | Hem/Onc Progress Note ---
Assessment and Plan - Patient Problems (1) Acute respiratory failure Current Visit: Yes Status: Acute Qualifiers: Respiratory failure complication: hypoxia Qualified Code(s): J96.01 - Acute respiratory failure with hypoxia Plan to address problem: Overall better No new complains. Outpatient follow up stressed. She agrees.. Subjective Date of service: 09/30/17 Interval history: She feels better. No new complains. Objective - Constitutional Vitals: Last Vital Signs Temp 98.3 F 09/30/17 11:53 Pulse 59 L 09/30/17 12:20 Resp 18 09/30/17 11:53 BP 143/73 09/30/17 11:53 Pulse Ox 97 09/30/17 11:53 - EENT Eyes: PERRL ENT: hearing intact - Neck Neck: supple - Respiratory Respiratory: bilateral: CTA - Labs Lab Results: Laboratory Results - last 24 hr 09/27/17 09/27/17 09/30/17 08:17 08:17 05:43 WBC 6.5 RBC 3.99 Hgb 12.2 Hct 37.7 MCV 95 MCH 30 MCHC 32 RDW 17.7 H Plt Count 87 L Lymph % (Auto) 16.7 [place] % (Auto) 13.9 H Eos % (Auto) 2.7 Baso % (Auto) 0.7 Lymph # 1.1 L [place] # 0.9 H Eos # 0.2 Baso # 0.0 Seg Neutrophils % 66.0 Seg Neutrophils # 4.3 Percent Retic 2.47 Haptoglobin 20 L RBC Folic Acid 943
--- NOTE | 2017-09-30 18:38 | Progress Note ---
Assessment and Plan 57 YO Female with HTN, ESRD on HD(M,W,F), COPD, Chronic Respiratory Failure on 3L Home oxygen, Diastolic CHF, Pulmonary HTN, SDH who was brought to hospital for AMS and bradycardia to 20s /Dysphagia and vomiting MBS done and she is tolerating PO without aspirating EGD shows no outlet obstruction s/p NM gastric emptying study to r/o gastroparesis Gastric emptying study shows significant gastroparesis: dw GI. She is to have small frequent meals. She is improving /Toxic Metabolic encephalopathy now resolved, likely due to periop meds /Cardiogenic shock, improved Cardiology following, Pt is s/p TVP placement, s/p PPM placement 09/18/17 / hyperkalemia resolved with HD / HTN, uncontrolled meds optimized /Acute on chronic respiratory failure likely from cardiogenic shock, and underlying COPD CXR suggestive for pulmonary congestion she is on home O2 cont supplemental O2, duenebs, now resolved / COPD cont O2 n/c. and nebulizer /CHB (complete heart block) Cardiology consulted, s/p Transcutaneous pacing, Pt taken urgently to label folder for intervention. s/p PPM placement on 09/18/17 / ESRD has h/o renal transplant Nephrology consulted for dialysis, monitor uop q shift, dialysis per renal. 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 now closely monitor with frequent neuro assessment /DVT prophylaxis lovenox /Physical debility Consulted PT disposition pending on PT clearance History Interval history: Patient is tolerating diet c/o generalized weakness PT eval pending Hospitalist Physical - Physical exam Narrative exam: General.: Appears well, no distress, nontoxic HEENT: Moist mucous membranes, extraocular muscles intact, no lymphadenopathy Neck: supple Cardiac: S1-S2 heard Lungs: clear to auscultation bilaterally Abdomen: soft , nontender, nondistended, bowel sounds positive Extremities: no edema clubbing or cyanosis Skin: no rash or lesions Neurologic: no gross focal deficits Psych: appropriate behavior, appropriate mood, corporative, judgment intact Subjective Date of service: 09/30/17 Principal diagnosis: Gastroparesis, rectal bleeding, N/V, gallstones Objective - Constitutional Vitals: Vital Signs - 12hr 09/30/17 09/30/17 09/30/17 08:15 08:23 08:25 Temperature 98.5 F Pulse Rate 67 Pulse Rate [ 68 67 Anterior Bilateral Throughout] Respiratory 16 Rate Respiratory 18 18 Rate [Anterior Bilateral Throughout] Blood Pressure 162/80 O2 Sat by Pulse 98 Oximetry 09/30/17 09/30/17 09/30/17 08:34 10:00 11:53 Temperature 98.3 F Pulse Rate 67 Pulse Rate [ Anterior Bilateral Throughout] Respiratory 18 18 Rate Respiratory Rate [Anterior Bilateral Throughout] Blood Pressure 143/73 O2 Sat by Pulse 98 97 Oximetry 09/30/17 09/30/17 12:20 15:14 Temperature 98.2 F Pulse Rate 59 L 68 Pulse Rate [ Anterior Bilateral Throughout] Respiratory 16 Rate Respiratory Rate [Anterior Bilateral Throughout] Blood Pressure 143/75 O2 Sat by Pulse 96 Oximetry - Labs CBC & Chem 7: 09/30/17 05:43 09/29/17 07:04 Labs: Abnormal lab results 09/27/17 09/30/17 Range/Units 08:17 05:43 RDW 17.7 H (13.2-15.2) % Plt Count 87 L (140-440) K/mm3 [place] % (Auto) 13.9 H (0.0-7.3) % Lymph # 1.1 L (1.2-5.4) K/mm3 [place] # 0.9 H (0.0-0.8) K/mm3 Haptoglobin 20 L (43-212) mg/dL
[2017-09-30] MEDS: SENOKOT S PO SCH (21:33)
[2017-10-01] MEDS: DUONEB *Not for PRN Use IH SCH ×3 (07:57→21:58)
[2017-10-01] MEDS: CARAFATE PO SCH ×4 (08:27→21:55)
--- NOTE | 2017-10-01 09:54 | Gastroenterology Progress Note ---
Assessment and Plan 1.N/V 2.gastroparesis 3.gallstones 4.elevated LFTs 5.rectal hemorrhage - -HGB 12.2-trending up -no active sign of bleeding overnight or this am -continue daily bowel regimen -GES (+) for gastroparesis -N/V now resolved -tolerating diet -continue PRN Reglan -recommend small frequent meals -clinically pt is improved w/o GI complaints or RUQ abd pain, LFTs stable (WNL) , CT scan does not confirm GB inflammation and was negative for liver lesions or signs of chronic liver disease -no recommendations for a HIDA scan or surgical consult at this time -continue low volume diet and supportive care -no further GI recommendations at this time, pt is okay to be d/c from a GI standpoint -will sign off Subjective Date of service: 10/01/17 Principal diagnosis: Gastroparesis, rectal bleeding, N/V, gallstones Interval history: Patient resting in bed w/o distress and family at bedside. No active signs of bleeding overnight or this am. No N/V or abd pain. Tolerating diet. Objective - Constitutional Vitals: Temp Pulse Resp BP Pulse Ox 98.6 F 76 20 138/70 96 10/01/17 05:11 10/01/17 08:10 10/01/17 08:10 10/01/17 05:11 10/01/17 07:54 General appearance: no acute distress - EENT Eyes: PERRL, EOM intact ENT: hearing intact - Respiratory Respiratory: bilateral: CTA - Cardiovascular Rhythm: regular Heart Sounds: Present: S1 & S2 - Gastrointestinal General gastrointestinal: Present: soft, non-tender, non-distended, normal bowel sounds - Integumentary Integumentary: Present: warm, dry - Labs CBC & Chem 7: 09/30/17 05:43 09/29/17 07:04 Labs: Laboratory Results - last 24 hr 09/27/17 08:17 Haptoglobin 20 L
[2017-10-01] MEDS: REVATIO PO SCH ×2 (10:00→21:57)
--- NOTE | 2017-10-01 10:08 | Progress Note ---
Assessment and Plan Impression * End-stage renal disease on maintenance hemodialysis * Complete heart block --s/p permanent pacemaker placement * Hypertension * Anemia secondary to ESRD * Nausea and vomiting * Malfunctioning AV fistula --s/p angiogram and angioplasty by [facility] vascular * Thrombocytopenia * Abnormal LFTs - resolved Recommendations * Continue hemodialysis on Mondays, Wednesdays and Fridays schedule for now * UF as tolerated * Adjust diet and meds for ESRD state * Procrit with dialysis * No IV, BP of any puncture in her access arm * GI and Heme/Onc following; recommendations noted Subjective Date of service: 10/01/17 Principal diagnosis: Gastroparesis, rectal bleeding, N/V, gallstones Interval history: Patient seen on dialysis. She has no complaints. Objective - Vital Signs Vital signs: Vital Signs - 12hr 10/01/17 10/01/17 10/01/17 00:27 05:11 07:54 Temperature 98.7 F 98.6 F Pulse Rate 60 69 Pulse Rate [ 66 Anterior Bilateral Throughout] Respiratory 20 18 Rate Respiratory 20 Rate [Anterior Bilateral Throughout] Blood Pressure 129/68 138/70 O2 Sat by Pulse 99 97 96 Oximetry 10/01/17 08:10 Temperature Pulse Rate Pulse Rate [ 76 Anterior Bilateral Throughout] Respiratory Rate Respiratory 20 Rate [Anterior Bilateral Throughout] Blood Pressure O2 Sat by Pulse Oximetry - General Appearance General appearance: well-developed, well-nourished EENT: ATNC Respiratory: Present: Clear to Ascultation Cardiology: regular, S1S2 Gastrointestinal: normal, no tenderness, no distended Integumentary: no rash, warm and dry Musculoskeletal: other (no edema) Psychiatric: cooperative - Lab 09/30/17 05:43 09/29/17 07:04 Most recent lab results Calcium 10.0 mg/dL (8.4-10.2) 09/29/17 07:04 Phosphorus 5.30 mg/dL (2.5-4.5) H 09/23/17 05:49 Magnesium 2.10 mg/dL (1.7-2.3) 09/23/17 05:49
[2017-10-01] MEDS: MIRALAX 3350 PO SCH (10:10)
[2017-10-01] MEDS: PROTONIX PO SCH (10:10)
[2017-10-01] MEDS ORDERED: DUONEB *Not for PRN Use IH ONE (15:07)
--- NOTE | 2017-10-01 15:50 | Progress Note ---
Assessment and Plan Assessment and plan: 57 YO Female with HTN, ESRD on HD(M,W,F), COPD, Chronic Respiratory Failure on 3L Home oxygen, Diastolic CHF, Pulmonary HTN, SDH who was brought to hospital for AMS and bradycardia to 20s /Dysphagia and vomiting MBS done and she is tolerating PO without aspirating EGD shows no outlet obstruction s/p NM gastric emptying study to r/o gastroparesis Gastric emptying study shows significant gastroparesis: dw GI. She is to have small frequent meals. She is improving /Toxic Metabolic encephalopathy now resolved, likely due to periop meds /Cardiogenic shock, improved Cardiology following, Pt is s/p TVP placement, s/p PPM placement 09/18/17 / hyperkalemia resolved with HD / HTN, uncontrolled meds optimized /Acute on chronic respiratory failure likely from cardiogenic shock, and underlying COPD CXR suggestive for pulmonary congestion she is on home O2 cont supplemental O2, duenebs, now resolved / COPD cont O2 n/c. and nebulizer /CHB (complete heart block) Cardiology consulted, s/p Transcutaneous pacing, Pt taken urgently to electronic lab technician for intervention. s/p PPM placement / ESRD has h/o renal transplant Nephrology consulted for dialysis, monitor uop q shift, dialysis per renal. 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 History Interval history: Patient was seen and examined. Follow-up on current diagnosis. Overnight uneventful. Patient denies any chest pain, shortness breath, nausea/vomiting or severe headaches. Imaging, nursing note, chart, labs and old chart reviewed. Discussed with patient. Hospitalist Physical - Physical exam Narrative exam: GEN: WDWN, NAD, AWAKE, ALERT, ORIENTATED 3 HEENT: NCAT, EOMI, PERRL, OP Clear NECK: supple, no adenopathy, no thyromegaly, no JVD CVS/HEART: RRR, NORMAL S1S2, NO JVD, pulses present bilaterally CHEST/LUNGS: CTA B, Symmetrical chest expansion, good air entry bilaterally GI/Abdomen: soft, NTND, good bowel sounds, no guarding or rebound /Bladder: no suprapubic tenderness, no CVA or paraspinal tenderness EXT/Skin: no c/c/e, no obvious rash MSK: FROM x 4 Neuro: CN 2-12 grossly intact, no new focal deficits Psych: calm - Constitutional Vitals: Temp Pulse Resp BP Pulse Ox 98.2 F 69 18 177/74 96 10/01/17 10:45 10/01/17 15:38 10/01/17 15:38 10/01/17 13:15 10/01/17 07:54 General appearance: Present: no acute distress, well-nourished Results - Labs CBC & Chem 7: 09/30/17 05:43 09/29/17 07:04 Labs: Laboratory Last Values WBC 6.5 K/mm3 (4.5-11.0) 09/30/17 05:43 RBC 3.99 M/mm3 (3.65-5.03) 09/30/17 05:43 Hgb 12.2 gm/dl (10.1-14.3) 09/30/17 05:43 Hct 37.7 % (30.3-42.9) 09/30/17 05:43 MCV 95 fl (79-97) 09/30/17 05:43 MCH 30 pg (28-32) 09/30/17 05:43 MCHC 32 % (30-34) 09/30/17 05:43 RDW 17.7 % (13.2-15.2) H 09/30/17 05:43 Plt Count 87 K/mm3 (140-440) L 09/30/17 05:43 Lymph % (Auto) 16.7 % (13.4-35.0) 09/30/17 05:43 [place] % (Auto) 13.9 % (0.0-7.3) H 09/30/17 05:43 Eos % (Auto) 2.7 % (0.0-4.3) 09/30/17 05:43 Baso % (Auto) 0.7 % (0.0-1.8) 09/30/17 05:43 Lymph # 1.1 K/mm3 (1.2-5.4) L 09/30/17 05:43 [place] # 0.9 K/mm3 (0.0-0.8) H 09/30/17 05:43 Eos # 0.2 K/mm3 (0.0-0.4) 09/30/17 05:43 Baso # 0.0 K/mm3 (0.0-0.1) 09/30/17 05:43 Add Manual Diff Complete 09/23/17 05:49 Total Counted 100 09/23/17 05:49 Seg Neutrophils % 66.0 % (40.0-70.0) 09/30/17 05:43 Seg Neuts % (Manual) 81.0 % (40.0-70.0) H 09/23/17 05:49 Band Neutrophils % 5.0 % 09/23/17 05:49 Lymphocytes % (Manual) 7.0 % (13.4-35.0) L 09/23/17 05:49 Reactive Lymphs % (Man) 0 % 09/23/17 05:49 Monocytes % (Manual) 5.0 % (0.0-7.3) 09/23/17 05:49 Eosinophils % (Manual) 2.0 % (0.0-4.3) 09/23/17 05:49 Basophils % (Manual) 0 % (0.0-1.8) 09/23/17 05:49 Metamyelocytes % 0 % 09/23/17 05:49 Myelocytes % 0 % 09/23/17 05:49 Promyelocytes % 0 % 09/23/17 05:49 Blast Cells % 0 % 09/23/17 05:49 Nucleated RBC % Not Reportable 09/23/17 05:49 Seg Neutrophils # 4.3 K/mm3 (1.8-7.7) 09/30/17 05:43 Seg Neutrophils # Man 7.9 K/mm3 (1.8-7.7) H 09/23/17 05:49 Band Neutrophils # 0.5 K/mm3 09/23/17 05:49 Lymphocytes # (Manual) 0.7 K/mm3 (1.2-5.4) L 09/23/17 05:49 Abs React Lymphs (Man) 0.0 K/mm3 09/23/17 05:49 Monocytes # (Manual) 0.5 K/mm3 (0.0-0.8) 09/23/17 05:49 Eosinophils # (Manual) 0.2 K/mm3 (0.0-0.4) 09/23/17 05:49 Basophils # (Manual) 0.0 K/mm3 (0.0-0.1) 09/23/17 05:49 Metamyelocytes # 0.0 K/mm3 09/23/17 05:49 Myelocytes # 0.0 K/mm3 09/23/17 05:49 Promyelocytes # 0.0 K/mm3 09/23/17 05:49 Blast Cells # 0.0 K/mm3 09/23/17 05:49 WBC Morphology Not Reportable 09/23/17 05:49 Hypersegmented Neuts Not Reportable 09/23/17 05:49 Hyposegmented Neuts Not Reportable 09/23/17 05:49 Hypogranular Neuts Not Reportable 09/23/17 05:49 Smudge Cells Not Reportable 09/23/17 05:49 Toxic Granulation Not Reportable 09/23/17 05:49 Toxic Vacuolation Not Reportable 09/23/17 05:49 Dohle Bodies Not Reportable 09/23/17 05:49 Pelger-Huet Anomaly Not Reportable 09/23/17 05:49 Jia Rods Not Reportable 09/23/17 05:49 Platelet Estimate Not Reportable 09/23/17 05:49 Clumped Platelets Not Reportable 09/23/17 05:49 Plt Clumps, EDTA Not Reportable 09/23/17 05:49 Large Platelets Not Reportable 09/23/17 05:49 Giant Platelets Not Reportable 09/23/17 05:49 Platelet Satelliting Not Reportable 09/23/17 05:49 Plt Morphology Comment Not Reportable 09/23/17 05:49 RBC Morphology Not Reportable 09/23/17 05:49 Dimorphic RBCs Not Reportable 09/23/17 05:49 Polychromasia Few 09/23/17 05:49 Hypochromasia Not Reportable 09/23/17 05:49 Poikilocytosis Not Reportable 09/23/17 05:49 Anisocytosis Not Reportable 09/23/17 05:49 Microcytosis Not Reportable 09/23/17 05:49 Macrocytosis Not Reportable 09/23/17 05:49 Spherocytes Not Reportable 09/23/17 05:49 Pappenheimer Bodies Not Reportable 09/23/17 05:49 Sickle Cells Not Reportable 09/23/17 05:49 Target Cells Not Reportable 09/23/17 05:49 Tear Drop Cells Not Reportable 09/23/17 05:49 Ovalocytes Not Reportable 09/23/17 05:49 Helmet Cells Not Reportable 09/23/17 05:49 Marie-[place] Bodies Not Reportable 09/23/17 05:49 [place] Rings Not Reportable 09/23/17 05:49 [place] Cells Not Reportable 09/23/17 05:49 Bite Cells Not Reportable 09/23/17 05:49 Crenated Cell Not Reportable 09/23/17 05:49 Elliptocytes Not Reportable 09/23/17 05:49 Acanthocytes (Spur) Not Reportable 09/23/17 05:49 Rouleaux Not Reportable 09/23/17 05:49 Hemoglobin C Crystals Not Reportable 09/23/17 05:49 Schistocytes Not Reportable 09/23/17 05:49 Malaria parasites Not Reportable 09/23/17 05:49 Percent Retic 2.47 % (0.78-2.58) 09/30/17 05:43 King Bodies Not Reportable 09/23/17 05:49 Haptoglobin 20 mg/dL (43-212) L 09/27/17 08:17 Hem Pathologist Commnt No 09/23/17 05:49 PT 14.5 Sec. (12.2-14.9) 09/18/17 04:15 INR 1.07 (0.87-1.13) 09/18/17 04:15 APTT 37.3 Sec. (24.2-36.6) H 09/15/17 13:44 POC ABG pH 7.361 (7.35-7.45) 09/15/17 22:00 POC ABG pCO2 40.1 (35-45) 09/15/17 22:00 POC ABG pO2 56 (80-105) L 09/15/17 22:00 POC ABG HCO3 22.7 09/15/17 22:00 POC ABG Total CO2 24 09/15/17 22:00 POC ABG O2 Sat 88 09/15/17 22:00 POC ABG Base Excess -3 09/15/17 22:00 FiO2 28 % 09/15/17 22:00 Sodium 137 mmol/L (137-145) 09/29/17 07:04 Potassium 4.5 mmol/L (3.6-5.0) 09/29/17 07:04 Chloride 93.4 mmol/L (98-107) L 09/29/17 07:04 Carbon Dioxide 25 mmol/L (22-30) 09/29/17 07:04 Anion Gap 23 mmol/L 09/29/17 07:04 BUN 64 mg/dL (7-17) H 09/29/17 07:04 Creatinine 8.5 mg/dL (0.7-1.2) H 09/29/17 07:04 Estimated GFR 5 ml/min 09/29/17 07:04 BUN/Creatinine Ratio 8 % 09/29/17 07:04 Glucose 101 mg/dL (65-100) H 09/29/17 07:04 POC Glucose 96 (70-105) 09/22/17 07:26 Calcium 10.0 mg/dL (8.4-10.2) 09/29/17 07:04 Phosphorus 5.30 mg/dL (2.5-4.5) H 09/23/17 05:49 Magnesium 2.10 mg/dL (1.7-2.3) 09/23/17 05:49 Ferritin 1889.0 ng/mL (13.0-400.0) H 09/27/17 08:17 Total Bilirubin 1.10 mg/dL (0.1-1.2) 09/29/17 07:04 AST 27 units/L (5-40) 09/29/17 07:04 ALT 19 units/L (7-56) 09/29/17 07:04 Alkaline Phosphatase 86 units/L (35-129) 09/29/17 07:04 Total Creatine Kinase 46 units/L (30-135) 09/15/17 18:07 CK-MB (CK-2) 1.5 ng/mL (0.0-4.0) 09/15/17 18:07 CK-MB (CK-2) Rel Index 3.2 (0-4) 09/15/17 18:07 Troponin T 0.029 ng/mL (0.00-0.029) 09/15/17 18:07 Total Protein 6.5 g/dL (6.3-8.2) 09/29/17 07:04 Albumin 3.3 g/dL (3.9-5) L 09/29/17 07:04 Albumin/Globulin Ratio 1.0 % 09/29/17 07:04 Lipase 67 units/L (13-60) H 09/21/17 08:02 Vitamin B12 > 2000 pg/mL (211-911) H 09/27/17 08:17 RBC Folic Acid 943 ng/mL (>280) 09/27/17 08:17 Hepatitis A IgM Ab Non-reactive (NonReactive) 09/24/17 11:15 Hep Bs Antigen Non-reactive (Negative) 09/24/17 11:15 Hep B Core IgM Ab Non-reactive (NonReactive) 09/24/17 11:15 Hepatitis C Antibody Non-reactive (NonReactive) 09/24/17 11:15 Direct Antiglob Test Negative 09/27/17 08:17 GIGI, Poly Interpret Negative 09/27/17 08:17
[2017-10-01] MEDS: PERCOCET 5/325 PO PRN (17:13)
[2017-10-01] MEDS: LOPRESSOR PO SCH ×2 (17:14→21:56)
[2017-10-01] MEDS: PROCARDIA XL PO SCH (17:15)
[2017-10-01] MEDS ORDERED: NACL 0.9 (PRIMING MACHINE ONLY DIALYSIS) MC ONE (17:56)
--- NOTE | 2017-10-01 18:54 | Progress Note ---
Assessment and Plan Patient alert, awake. Resting on 3 litres O2. No acute respiratory distress.O2 saturation 96% on 3 litres O2. - Patient Problems (1) Pulmonary hypertension Current Visit: Yes Status: Acute Plan to address problem: Patient started back in [place]. Continue O2 supplementation. (2) CHB (complete heart block) Current Visit: Yes Status: Acute Plan to address problem: Patient has pacemaker implantation. (3) Chronic respiratory failure with hypoxia Current Visit: Yes Status: Acute Plan to address problem: O2 supplementation 3 litres via nasal canula. Albuterol/atrovent aerosol treatments q 6 hours. (4) ESRD (end stage renal disease) Current Visit: Yes Status: Acute Plan to address problem: Management as per nephrology. (5) Hypertension Current Visit: Yes Status: Acute Plan to address problem: Management as per primary care. Subjective Date of service: 10/01/17 Principal diagnosis: Gastroparesis, rectal bleeding, N/V, gallstones Interval history: Patient alert, awake. Resting on 3 litres O2. No acute respiratory distress.O2 saturation 96% on 3 litres O2. Objective Vital Signs - 12hr 10/01/17 10/01/17 10/01/17 07:01 07:34 07:54 Temperature 98.2 F Pulse Rate 65 65 Pulse Rate [ 66 Anterior Bilateral Throughout] Respiratory 16 Rate Respiratory 20 Rate [Anterior Bilateral Throughout] Blood Pressure 161/74 O2 Sat by Pulse 98 96 Oximetry 10/01/17 10/01/17 10/01/17 08:10 10:45 11:00 Temperature 98.2 F Pulse Rate 62 61 Pulse Rate [ 76 Anterior Bilateral Throughout] Respiratory 18 Rate Respiratory 20 Rate [Anterior Bilateral Throughout] Blood Pressure 170/80 176/81 O2 Sat by Pulse Oximetry 10/01/17 10/01/17 10/01/17 11:15 11:30 11:45 Temperature Pulse Rate 62 63 64 Pulse Rate [ Anterior Bilateral Throughout] Respiratory Rate Respiratory Rate [Anterior Bilateral Throughout] Blood Pressure 178/74 189/76 173/82 O2 Sat by Pulse Oximetry 10/01/17 10/01/17 10/01/17 12:00 12:15 12:30 Temperature Pulse Rate 61 61 60 Pulse Rate [ Anterior Bilateral Throughout] Respiratory Rate Respiratory Rate [Anterior Bilateral Throughout] Blood Pressure 172/77 176/81 170/78 O2 Sat by Pulse Oximetry 10/01/17 10/01/17 10/01/17 12:45 13:00 13:15 Temperature Pulse Rate 63 65 63 Pulse Rate [ Anterior Bilateral Throughout] Respiratory Rate Respiratory Rate [Anterior Bilateral Throughout] Blood Pressure 188/83 164/75 177/74 O2 Sat by Pulse Oximetry 10/01/17 10/01/17 10/01/17 13:30 13:45 14:00 Temperature Pulse Rate 61 62 62 Pulse Rate [ Anterior Bilateral Throughout] Respiratory Rate Respiratory Rate [Anterior Bilateral Throughout] Blood Pressure 161/80 180/83 138/67 O2 Sat by Pulse Oximetry 10/01/17 10/01/17 10/01/17 14:15 14:30 15:38 Temperature 98.0 F Pulse Rate 60 60 Pulse Rate [ 69 Anterior Bilateral Throughout] Respiratory 18 Rate Respiratory 18 Rate [Anterior Bilateral Throughout] Blood Pressure 158/72 160/70 O2 Sat by Pulse Oximetry 10/01/17 10/01/17 15:53 17:14 Temperature Pulse Rate 71 Pulse Rate [ 72 Anterior Bilateral Throughout] Respiratory Rate Respiratory 20 Rate [Anterior Bilateral Throughout] Blood Pressure 160/80 O2 Sat by Pulse Oximetry Constitutional: no acute distress, alert Eyes: non-icteric ENT: oropharynx moist, other (mallampatti 2) Neck: supple, no lymphadenopathy, no JVD, other (No thyromegaly) Effort: mildly labored Ascultation: Bilateral: diminished breath sounds Percussion: Bilateral: not dull Cardiovascular: regular rate and rhythm, other (S1,S2 no murmurs, active precordium) Gastrointestinal: normoactive bowel sounds, soft, non-tender, non-distended, other (no palpable HSM) Integumentary: normal, other (right forearm AV-graft) Extremities: no cyanosis, no edema, pulses normal, no ischemia or petechiae Neurologic: normal mental status, non-focal exam, pupils equal and round, motor strength normal and Psychiatric: mood appropriate, affect normal CBC and BMP: 09/30/17 05:43 09/29/17 07:04 ABG, PT/INR, D-dimer: ABG POC ABG pH 7.361 (7.35-7.45) 09/15/17 22:00 POC ABG pCO2 40.1 (35-45) 09/15/17 22:00 POC ABG pO2 56 (80-105) L 09/15/17 22:00 POC ABG HCO3 22.7 09/15/17 22:00 POC ABG Total CO2 24 09/15/17 22:00 POC ABG O2 Sat 88 09/15/17 22:00 PT/INR, D-dimer PT 14.5 Sec. (12.2-14.9) 09/18/17 04:15 INR 1.07 (0.87-1.13) 09/18/17 04:15 Abnormal lab findings: Abnormal Labs 09/15/17 09/15/17 09/15/17 13:44 13:44 13:44 RDW 16.8 H Plt Count 86 L Lymph % (Auto) Chambers % (Auto) Lymph # 0.9 L Chambers # Seg Neutrophils % 72.2 H Seg Neuts % (Manual) Lymphocytes % (Manual) Seg Neutrophils # Seg Neutrophils # Man Lymphocytes # (Manual) Percent Retic Haptoglobin PT 16.3 H INR 1.24 H APTT 37.3 H POC ABG pO2 Potassium Chloride 107.2 H Carbon Dioxide 19 L BUN 58 H Creatinine 9.6 H Glucose 173 H POC Glucose Phosphorus Magnesium 2.40 H Ferritin Total Bilirubin AST ALT Total Protein 5.3 L Albumin 3.3 L Lipase Vitamin B12 09/15/17 09/16/17 09/16/17 22:00 04:04 07:35 RDW Plt Count Lymph % (Auto) Chambers % (Auto) Lymph # Chambers # Seg Neutrophils % Seg Neuts % (Manual) Lymphocytes % (Manual) Seg Neutrophils # Seg Neutrophils # Man Lymphocytes # (Manual) Percent Retic Haptoglobin PT INR APTT POC ABG pO2 56 L Potassium Chloride Carbon Dioxide 20 L BUN 65 H Creatinine 10.5 H Glucose POC Glucose 62 L Phosphorus Magnesium 2.50 H Ferritin Total Bilirubin AST ALT Total Protein Albumin Lipase Vitamin B12 09/16/17 09/16/17 09/17/17 08:44 23:31 01:13 RDW Plt Count Lymph % (Auto) Chambers % (Auto) Lymph # Chambers # Seg Neutrophils % Seg Neuts % (Manual) Lymphocytes % (Manual) Seg Neutrophils # Seg Neutrophils # Man Lymphocytes # (Manual) Percent Retic Haptoglobin PT INR APTT POC ABG pO2 Potassium Chloride Carbon Dioxide BUN Creatinine Glucose POC Glucose 143 H 66 L 118 H Phosphorus Magnesium Ferritin Total Bilirubin AST ALT Total Protein Albumin Lipase Vitamin B12 1209/17/17 09/17/17 05:46 11:13 11:13 RDW 15.9 H Plt Count 72 L Lymph % (Auto) Chambers % (Auto) Lymph # Chambers # Seg Neutrophils % Seg Neuts % (Manual) Lymphocytes % (Manual) Seg Neutrophils # Seg Neutrophils # Man Lymphocytes # (Manual) Percent Retic Haptoglobin PT INR APTT POC ABG pO2 Potassium 5.2 H Chloride Carbon Dioxide 21 L BUN 49 H Creatinine 10.1 H Glucose POC Glucose 67 L Phosphorus Magnesium Ferritin Total Bilirubin AST ALT Total Protein Albumin Lipase Vitamin B12 09/17/17 09/18/17 09/18/17 17:36 04:15 04:15 RDW 16.3 H Plt Count 71 L Lymph % (Auto) Chambers % (Auto) 11.1 H Lymph # 1.0 L Chambers # Seg Neutrophils % 70.3 H Seg Neuts % (Manual) Lymphocytes % (Manual) Seg Neutrophils # Seg Neutrophils # Man Lymphocytes # (Manual) Percent Retic Haptoglobin PT INR APTT POC ABG pO2 Potassium 5.3 H Chloride 95.3 L Carbon Dioxide BUN 28 H Creatinine 6.3 H Glucose 123 H POC Glucose 118 H Phosphorus Magnesium Ferritin Total Bilirubin AST ALT Total Protein Albumin Lipase Vitamin B12 09/18/17 09/19/17 09/20/17 05:14 11:23 09:11 RDW 15.8 H Plt Count 46 L Lymph % (Auto) 6.9 L Chambers % (Auto) Lymph # 0.7 L Chambers # Seg Neutrophils % 86.3 H Seg Neuts % (Manual) Lymphocytes % (Manual) Seg Neutrophils # 9.4 H Seg Neutrophils # Man Lymphocytes # (Manual) Percent Retic Haptoglobin PT INR APTT POC ABG pO2 Potassium Chloride Carbon Dioxide BUN Creatinine Glucose POC Glucose 116 H 121 H Phosphorus Magnesium Ferritin Total Bilirubin AST ALT Total Protein Albumin Lipase Vitamin B12 09/20/17 09/21/17 09/22/17 09:11 08:02 06:37 RDW 15.6 H Plt Count 52 L Lymph % (Auto) Chambers % (Auto) Lymph # Chambers # Seg Neutrophils % Seg Neuts % (Manual) Lymphocytes % (Manual) Seg Neutrophils # Seg Neutrophils # Man Lymphocytes # (Manual) Percent Retic Haptoglobin PT INR APTT POC ABG pO2 Potassium 5.9 H D Chloride 95.2 L 93.9 L Carbon Dioxide 18 L 21 L BUN 52 H 72 H Creatinine 6.6 H 8.2 H Glucose 112 H POC Glucose Phosphorus 8.10 H Magnesium Ferritin Total Bilirubin AST ALT Total Protein Albumin Lipase 67 H Vitamin B12 09/22/17 09/23/17 09/23/17 06:37 05:49 05:49 RDW 16.1 H Plt Count 53 L Lymph % (Auto) Chambers % (Auto) Lymph # Chambers # Seg Neutrophils % Seg Neuts % (Manual) 81.0 H Lymphocytes % (Manual) 7.0 L Seg Neutrophils # Seg Neutrophils # Man 7.9 H Lymphocytes # (Manual) 0.7 L Percent Retic Haptoglobin PT INR APTT POC ABG pO2 Potassium Chloride 94.4 L 90.8 L Carbon Dioxide BUN 95 H 61 H Creatinine 10.2 H 7.3 H Glucose 104 H 112 H POC Glucose Phosphorus 5.30 H Magnesium Ferritin Total Bilirubin 1.30 H AST 533 H ALT 143 H Total Protein 5.9 L Albumin 3.8 L Lipase Vitamin B12 09/26/17 09/26/17 09/27/17 05:51 05:51 08:17 RDW 17.1 H 17.4 H Plt Count 45 L 56 L Lymph % (Auto) Chambers % (Auto) 14.9 H 14.6 H Lymph # 1.0 L 1.0 L Chambers # 1.0 H 1.0 H Seg Neutrophils % Seg Neuts % (Manual) Lymphocytes % (Manual) Seg Neutrophils # Seg Neutrophils # Man Lymphocytes # (Manual) Percent Retic 6.48 H Haptoglobin PT INR APTT POC ABG pO2 Potassium Chloride 94.5 L Carbon Dioxide 21 L BUN 60 H Creatinine 7.1 H Glucose POC Glucose Phosphorus Magnesium Ferritin Total Bilirubin 1.70 H AST 84 H ALT Total Protein 6.0 L Albumin 3.0 L Lipase Vitamin B12 09/27/17 09/27/17 09/27/17 08:17 08:17 08:17 RDW Plt Count Lymph % (Auto) Chambers % (Auto) Lymph # Chambers # Seg Neutrophils % Seg Neuts % (Manual) Lymphocytes % (Manual) Seg Neutrophils # Seg Neutrophils # Man Lymphocytes # (Manual) Percent Retic Haptoglobin 20 L PT INR APTT POC ABG pO2 Potassium Chloride Carbon Dioxide BUN Creatinine Glucose POC Glucose Phosphorus Magnesium Ferritin 1889.0 H Total Bilirubin AST ALT Total Protein Albumin Lipase Vitamin B12 > 2000 H 09/28/17 09/28/17 09/29/17 06:03 13:17 07:04 RDW 16.9 H 18.4 H Plt Count 62 L 66 L Lymph % (Auto) 10.6 L Chambers % (Auto) 13.4 H 12.2 H Lymph # 1.1 L 0.7 L Chambers # 0.9 H Seg Neutrophils % 74.5 H Seg Neuts % (Manual) Lymphocytes % (Manual) Seg Neutrophils # Seg Neutrophils # Man Lymphocytes # (Manual) Percent Retic Haptoglobin PT INR APTT POC ABG pO2 Potassium Chloride 93.4 L Carbon Dioxide BUN 64 H Creatinine 8.5 H Glucose 101 H POC Glucose Phosphorus Magnesium Ferritin Total Bilirubin AST ALT Total Protein Albumin 3.3 L Lipase Vitamin B12 09/30/17 05:43 RDW 17.7 H Plt Count 87 L Lymph % (Auto) Chambers % (Auto) 13.9 H Lymph # 1.1 L Chambers # 0.9 H Seg Neutrophils % Seg Neuts % (Manual) Lymphocytes % (Manual) Seg Neutrophils # Seg Neutrophils # Man Lymphocytes # (Manual) Percent Retic Haptoglobin PT INR APTT POC ABG pO2 Potassium Chloride Carbon Dioxide BUN Creatinine Glucose POC Glucose Phosphorus Magnesium Ferritin Total Bilirubin AST ALT Total Protein Albumin Lipase Vitamin B12 Allied health notes reviewed: nursing
[2017-10-01] MEDS: SENOKOT S PO SCH (21:55)
[2017-10-02] MEDS: PERCOCET 5/325 PO PRN (03:38)
[2017-10-02] MEDS: CARAFATE PO SCH ×2 (08:24→12:26)
[2017-10-02] MEDS: DUONEB *Not for PRN Use IH SCH ×2 (09:03→14:33)
--- NOTE | 2017-10-02 09:08 | Progress Note ---
Assessment and Plan Impression * End-stage renal disease on maintenance hemodialysis * Complete heart block --s/p permanent pacemaker placement * Hypertension * Anemia secondary to ESRD * Malfunctioning AV fistula --s/p angiogram and angioplasty by [facility] * Thrombocytopenia * Abnormal LFTs - resolved * Nausea/vomiting attributed to gastroparesis Recommendations * Continue hemodialysis on Mondays, Wednesdays and Fridays schedule for now * UF as tolerated * Adjust diet and meds for ESRD state * Procrit with dialysis * No IV, BP of any puncture in her access arm * GI and Heme/Onc following; recommendations noted Subjective Date of service: 10/02/17 Principal diagnosis: Gastroparesis, rectal bleeding, N/V, gallstones Objective - Vital Signs Vital signs: Vital Signs - 12hr 10/02/17 10/02/17 10/02/17 00:27 04:09 07:33 Temperature 98.8 F 98.2 F 98.7 F Pulse Rate 66 66 69 Pulse Rate [ Anterior Bilateral Throughout] Respiratory 20 18 16 Rate Respiratory Rate [Anterior Bilateral Throughout] Blood Pressure 166/74 153/87 Blood Pressure 137/65 [Left] O2 Sat by Pulse 97 93 95 Oximetry 10/02/17 10/02/17 09:03 09:06 Temperature Pulse Rate Pulse Rate [ 79 Anterior Bilateral Throughout] Respiratory Rate Respiratory 18 Rate [Anterior Bilateral Throughout] Blood Pressure Blood Pressure [Left] O2 Sat by Pulse 96 Oximetry - Lab 09/30/17 05:43 09/29/17 07:04 Most recent lab results Calcium 10.0 mg/dL (8.4-10.2) 09/29/17 07:04 Phosphorus 5.30 mg/dL (2.5-4.5) H 09/23/17 05:49 Magnesium 2.10 mg/dL (1.7-2.3) 09/23/17 05:49
[2017-10-02] MEDS: MIRALAX 3350 PO SCH (09:57)
[2017-10-02] MEDS: PROCARDIA XL PO SCH (09:57)
[2017-10-02] MEDS: PROTONIX PO SCH (09:57)
[2017-10-02] MEDS: REVATIO PO SCH (09:57)
[2017-10-02] MEDS: LOPRESSOR PO SCH (09:58)
--- NOTE | 2017-10-02 13:02 | Discharge Summary ---
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 Hall @ 09/15/20174 Time called:: 21:10 Comment:: Dr. Hall @ [phone] per answering service 09/15/17 21:14 Consult to Interventional Radiology [CONS] Urgent Consulting Provider: ABRAM KEENE Reason For Exam: IR tunnelled PICC pt. on Dopamine drip Place consult to:: Answering service Notified:: Bal answering service Phone number called:: [phone] Was contact made?: Yes If yes, spoke with:: I spoke with Dr. Ortega @ 0033 Time called:: 00:25 Comment:: Per 09/21/17 15:25 Consult to Physician [CONS] Routine Consulting Provider: NA FLYNN Reason For Exam: fistulogram Place consult to:: Dr. Flynn Notified:: Kellie RN Phone number called:: Was contact made?: Yes If yes, spoke with:: Janelle-answering service/call transferred to Dr. Rivera Time called:: 18:07 09/23/17 15:27 Speech Therapy Evaluation and Treat [CONS] Routine Reason For Exam: dysphagia 09/25/17 13:59 Consult to Physician [CONS] Routine Consulting Provider: JOSE ALBERTO WATKINS Reason For Exam: Vomiting intact food after 7 hours, ?stricture Place consult to:: Dr. Watkins Notified:: Audrey RN Phone number called:: Was contact made?: Yes If yes, spoke with:: Mike-maryan service Time called:: 14:12 09/26/17 15:08 Consult to Physician [CONS] Routine Consulting Provider: NGA HAM Reason For Exam: low platelest Place consult to:: checo Notified:: office Phone number called:: [phone] Was contact made?: Yes If yes, spoke with:: jboy Time called:: 15:42 09/27/17 00:46 Consult to Dietitian/Nutrition [CONS] Routine Physician Instructions: Reason For Exam: Reason for Consult: Malnutrition 09/30/17 08:33 Physical Therapy Evaluation and Treat [CONS] Routine Comment: Reason For Exam: placement Primary care physician: LES LAWSON Hospitalization Condition: Stable Hospital course: 57 YO Female with HTN, ESRD on HD(M,W,F), COPD, Chronic Respiratory Failure on 3L Home oxygen, Diastolic CHF, Pulmonary HTN, SDH who was brought to hospital for AMS and bradycardia to 20s /Dysphagia w/ n/vomiting MBS done and she is tolerating PO without aspirating EGD shows no outlet obstruction s/p NM gastric emptying study most likely gastroparesis Gastric emptying study shows significant gastroparesis: dw GI. She is to have small frequent meals. She is improving /Toxic Metabolic encephalopathy now resolved, likely due to periop meds /Cardiogenic shock due to CHB, improved Cardiology following, Pt is s/p TVP placement, s/p PPM placement 09/18/17 / hyperkalemia resolved with HD / HTN, uncontrolled meds optimized /Acute on chronic respiratory failure likely from cardiogenic shock, and underlying COPD CXR suggestive for pulmonary congestion she is on home O2 cont supplemental O2, duenebs, now resolved / COPD cont O2 n/c. 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 s/p PPM placement / ESRD has h/o renal transplant Nephrology consulted for dialysis, monitor uop q shift, dialysis per renal. 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 Patient in HD 09/22/17: d/w Physical therapy, recom Home with home care/cane, daughter, Nancy at bedside, used as Scottish video manager Disposition: [id number] HOME [facility] Time spent for discharge: 36 minutes Core Measure Documentation - Palliative Care Palliative Care/ Comfort Measures: Not Applicable - Core Measures Any of the following diagnoses?: none - VTE Discharge Requirements Deep Vein Thrombosis/Pulmonary Embolism Present on Admission: No Has pt received <5 days of overlap therapy or INR<2.0: No Anticoagulant overlap therapy prescribed at discharge: No Contraindication No Overlap Therapy order at DC: Not Indicated Exam - Physical Exam Narrative exam: GEN: WDWN, NAD, AWAKE, ALERT, ORIENTATED 3 HEENT: NCAT, EOMI, PERRL, OP Clear NECK: supple, no adenopathy, no thyromegaly, no JVD CVS/HEART: RRR, NORMAL S1S2, NO JVD, pulses present bilaterally CHEST/LUNGS: CTA B, Symmetrical chest expansion, good air entry bilaterally GI/Abdomen: soft, NTND, good bowel sounds, no guarding or rebound /Bladder: no suprapubic tenderness, no CVA or paraspinal tenderness EXT/Skin: no c/c/e, no obvious rash MSK: FROM x 4 Neuro: CN 2-12 grossly intact, no new focal deficits Psych: calm - Constitutional Vitals: Temp Pulse Resp BP Pulse Ox 98.7 F 70 16 153/87 95 10/02/17 10:10 10/02/17 10:10 10/02/17 10:10 10/02/17 10:10 10/02/17 10:10 Plan Activity: other (no strenous activity until cleared by Client Engagement Specialist) Diet: low salt Wound: per wound nurse instructions Additional Instructions: NO heavy lifting, no vacuuming, no stressful activity, no sales order coordinator, no pulling or pushing until Cleared by Client Engagement Specialist. Follow up with: MAEGAN ANDERSON MD [Staff Physician] - 14 Days JOSE ALBERTO WATKINS MD [Staff Physician] - 14 Days LITZY ALVES MD [Staff Physician] - 7 Days WINTER MEYER MD [Staff Physician] - 7 Days Prescriptions: ALBUTEROL NEB's [Proventil 0.083% NEBS] 2.5 mg IH TID PRN #120 nebu PRN Reason: Wheezing amLODIPine [Norvasc] 10 mg PO QDAY #30 tablet Antacid [Alum-Mag Hydrox-Simeth [id number]/5Ml] 30 ml PO Q4H PRN #1 bottle PRN Reason: Indigestion Fluticasone [Flonase] 1 spray NS QDAY #1 bottle Ipratropium [Atrovent NEB] 0.5 mg IH Q6HRT #120 nebu Metoprolol [Lopressor TAB] 50 mg PO BID #60 tablet oxyCODONE /ACETAMINOPHEN [Percocet 5/325 mg] 1 tab PO Q6H PRN #14 tablet PRN Reason: Pain Pantoprazole [Protonix TAB] 40 mg PO BID #60 tablet Sucralfate [Carafate] 1 gm PO ACHS 30 Days oral.liqd Tadalafil (Nf) [Adcirca (Nf)] 20 mg PO QDAY #30 tablet
--- NOTE | 2017-10-02 13:30 | Hem/Onc Progress Note ---
Assessment and Plan - Patient Problems (1) Acute respiratory failure Current Visit: Yes Status: Acute Qualifiers: Respiratory failure complication: hypoxia Qualified Code(s): J96.01 - Acute respiratory failure with hypoxia Plan to address problem: Improved. Outpatient follow up stressed with patient and family. Subjective Interval history: No new complains. Seen with family. Objective - Constitutional Vitals: Last Vital Signs Temp 98.7 F 10/02/17 10:10 Pulse 70 10/02/17 10:10 Resp 16 10/02/17 10:10 BP 153/87 10/02/17 10:10 Pulse Ox 95 10/02/17 10:10 - EENT Lymph node exam: negative cervical - Neck Neck: supple - Respiratory Respiratory: bilateral: CTA
--- NOTE | 2017-10-02 13:48 | Progress Note ---
Assessment and Plan Symptomatic Bradycardia Complete Heart Block Pulmonary HTN (Sever by 2D ECHO) Chronic Hypoxemic Resp Failure ESRD on Dialysis HTN Thrombocytopenia - s/p PPM - continue supplemental oxygen to keep sats > 90% - continue bronchodilators and pulmonary toilet - re-introduce PD5 inhibitor therapy for Pulm HTN and tolerating well so far ( Revatio 20mg po bid) - will advance to tid therapy shortly if continues to tolerate - optimize cardiac therapy per data management analyst - continue GI evaluation (for gastric emptying study) - continue HD/UF per nephrology prescription - Adjust antihypertensives per nephrology - continue GI & VTE prophylaxis - follow platelet count ...re-evaluate in am & prn Subjective Date of service: 10/02/17 Principal diagnosis: Gastroparesis, rectal bleeding, N/V, gallstones Interval history: Patient is seen today for: Complete Heart Block; Symptomatic Bradycardia; Hypoxemic Resp Failure Seen and examined at bedside; 24hour events reviewed; nursing and respiratory care staff consulted; no adverse overnight events reported to me; resting in bed ; feels better respiratory-chowdary; denies acute chest pains or increased SOB Objective Vital Signs - 12hr 10/02/17 10/02/17 10/02/17 04:09 07:17 07:33 Temperature 98.2 F 98.7 F Pulse Rate 66 64 69 Pulse Rate [ Anterior Bilateral Throughout] Respiratory 18 16 Rate Respiratory Rate [Anterior Bilateral Throughout] Blood Pressure 153/87 Blood Pressure 137/65 [Left] O2 Sat by Pulse 93 95 Oximetry 10/02/17 10/02/17 10/02/17 09:03 09:06 09:24 Temperature Pulse Rate Pulse Rate [ 79 60 Anterior Bilateral Throughout] Respiratory Rate Respiratory 18 18 Rate [Anterior Bilateral Throughout] Blood Pressure Blood Pressure [Left] O2 Sat by Pulse 96 Oximetry 10/02/17 10/02/17 09:58 10:10 Temperature 98.7 F Pulse Rate 69 70 Pulse Rate [ Anterior Bilateral Throughout] Respiratory 16 Rate Respiratory Rate [Anterior Bilateral Throughout] Blood Pressure 153/87 Blood Pressure 153/87 [Left] O2 Sat by Pulse 95 Oximetry Constitutional: no acute distress, alert Eyes: non-icteric ENT: oropharynx moist, other (mallampatti 2) Neck: supple, no lymphadenopathy, no JVD, other (No thyromegaly) Effort: mildly labored Ascultation: Bilateral: clear, diminished breath sounds Percussion: Bilateral: not dull Cardiovascular: regular rate and rhythm, other (S1,S2 no murmurs, active precordium) Gastrointestinal: normoactive bowel sounds, soft, non-tender, non-distended, other (no palpable HSM) Integumentary: normal, other (right forearm AV-graft) Extremities: no cyanosis, no edema, pulses normal, no ischemia or petechiae Neurologic: normal mental status, non-focal exam, pupils equal and round, motor strength normal and Psychiatric: mood appropriate, affect normal CBC and BMP: 09/30/17 05:43 09/29/17 07:04 ABG, PT/INR, D-dimer: ABG POC ABG pH 7.361 (7.35-7.45) 09/15/17 22:00 POC ABG pCO2 40.1 (35-45) 09/15/17 22:00 POC ABG pO2 56 (80-105) L 09/15/17 22:00 POC ABG HCO3 22.7 09/15/17 22:00 POC ABG Total CO2 24 09/15/17 22:00 POC ABG O2 Sat 88 09/15/17 22:00 PT/INR, D-dimer PT 14.5 Sec. (12.2-14.9) 09/18/17 04:15 INR 1.07 (0.87-1.13) 09/18/17 04:15 Abnormal lab findings: Abnormal Labs 09/15/17 09/15/17 09/15/17 13:44 13:44 13:44 RDW 16.8 H Plt Count 86 L Lymph % (Auto) [place] % (Auto) Lymph # 0.9 L [place] # Seg Neutrophils % 72.2 H Seg Neuts % (Manual) Lymphocytes % (Manual) Seg Neutrophils # Seg Neutrophils # Man Lymphocytes # (Manual) Percent Retic Haptoglobin PT 16.3 H INR 1.24 H APTT 37.3 H POC ABG pO2 Potassium Chloride 107.2 H Carbon Dioxide 19 L BUN 58 H Creatinine 9.6 H Glucose 173 H POC Glucose Phosphorus Magnesium 2.40 H Ferritin Total Bilirubin AST ALT Total Protein 5.3 L Albumin 3.3 L Lipase Vitamin B12 09/15/17 09/16/17 09/16/17 22:00 04:04 07:35 RDW Plt Count Lymph % (Auto) [place] % (Auto) Lymph # [place] # Seg Neutrophils % Seg Neuts % (Manual) Lymphocytes % (Manual) Seg Neutrophils # Seg Neutrophils # Man Lymphocytes # (Manual) Percent Retic Haptoglobin PT INR APTT POC ABG pO2 56 L Potassium Chloride Carbon Dioxide 20 L BUN 65 H Creatinine 10.5 H Glucose POC Glucose 62 L Phosphorus Magnesium 2.50 H Ferritin Total Bilirubin AST ALT Total Protein Albumin Lipase Vitamin B12 09/16/17 09/16/17 09/17/17 08:44 23:31 01:13 RDW Plt Count Lymph % (Auto) [place] % (Auto) Lymph # [place] # Seg Neutrophils % Seg Neuts % (Manual) Lymphocytes % (Manual) Seg Neutrophils # Seg Neutrophils # Man Lymphocytes # (Manual) Percent Retic Haptoglobin PT INR APTT POC ABG pO2 Potassium Chloride Carbon Dioxide BUN Creatinine Glucose POC Glucose 143 H 66 L 118 H Phosphorus Magnesium Ferritin Total Bilirubin AST ALT Total Protein Albumin Lipase Vitamin B12 09/17/17 09/17/17 09/17/17 05:46 11:13 11:13 RDW 15.9 H Plt Count 72 L Lymph % (Auto) [place] % (Auto) Lymph # [place] # Seg Neutrophils % Seg Neuts % (Manual) Lymphocytes % (Manual) Seg Neutrophils # Seg Neutrophils # Man Lymphocytes # (Manual) Percent Retic Haptoglobin PT INR APTT POC ABG pO2 Potassium 5.2 H Chloride Carbon Dioxide 21 L BUN 49 H Creatinine 10.1 H Glucose POC Glucose 67 L Phosphorus Magnesium Ferritin Total Bilirubin AST ALT Total Protein Albumin Lipase Vitamin B12 09/17/17 09/18/17 09/18/17 17:36 04:15 04:15 RDW 16.3 H Plt Count 71 L Lymph % (Auto) [place] % (Auto) 11.1 H Lymph # 1.0 L [place] # Seg Neutrophils % 70.3 H Seg Neuts % (Manual) Lymphocytes % (Manual) Seg Neutrophils # Seg Neutrophils # Man Lymphocytes # (Manual) Percent Retic Haptoglobin PT INR APTT POC ABG pO2 Potassium 5.3 H Chloride 95.3 L Carbon Dioxide BUN 28 H Creatinine 6.3 H Glucose 123 H POC Glucose 118 H Phosphorus Magnesium Ferritin Total Bilirubin AST ALT Total Protein Albumin Lipase Vitamin B12 09/18/17 09/19/17 09/20/17 05:14 11:23 09:11 RDW 15.8 H Plt Count 46 L Lymph % (Auto) 6.9 L [place] % (Auto) Lymph # 0.7 L [place] # Seg Neutrophils % 86.3 H Seg Neuts % (Manual) Lymphocytes % (Manual) Seg Neutrophils # 9.4 H Seg Neutrophils # Man Lymphocytes # (Manual) Percent Retic Haptoglobin PT INR APTT POC ABG pO2 Potassium Chloride Carbon Dioxide BUN Creatinine Glucose POC Glucose 116 H 121 H Phosphorus Magnesium Ferritin Total Bilirubin AST ALT Total Protein Albumin Lipase Vitamin B12 09/20/17 09/21/17 09/22/17 09:11 08:02 06:37 RDW 15.6 H Plt Count 52 L Lymph % (Auto) [place] % (Auto) Lymph # [place] # Seg Neutrophils % Seg Neuts % (Manual) Lymphocytes % (Manual) Seg Neutrophils # Seg Neutrophils # Man Lymphocytes # (Manual) Percent Retic Haptoglobin PT INR APTT POC ABG pO2 Potassium 5.9 H D Chloride 95.2 L 93.9 L Carbon Dioxide 18 L 21 L BUN 52 H 72 H Creatinine 6.6 H 8.2 H Glucose 112 H POC Glucose Phosphorus 8.10 H Magnesium Ferritin Total Bilirubin AST ALT Total Protein Albumin Lipase 67 H Vitamin B12 09/22/17 09/23/17 09/23/17 06:37 05:49 05:49 RDW 16.1 H Plt Count 53 L Lymph % (Auto) [place] % (Auto) Lymph # [place] # Seg Neutrophils % Seg Neuts % (Manual) 81.0 H Lymphocytes % (Manual) 7.0 L Seg Neutrophils # Seg Neutrophils # Man 7.9 H Lymphocytes # (Manual) 0.7 L Percent Retic Haptoglobin PT INR APTT POC ABG pO2 Potassium Chloride 94.4 L 90.8 L Carbon Dioxide BUN 95 H 61 H Creatinine 10.2 H 7.3 H Glucose 104 H 112 H POC Glucose Phosphorus 5.30 H Magnesium Ferritin Total Bilirubin 1.30 H AST 533 H ALT 143 H Total Protein 5.9 L Albumin 3.8 L Lipase Vitamin B12 09/26/17 09/26/17 09/27/17 05:51 05:51 08:17 RDW 17.1 H 17.4 H Plt Count 45 L 56 L Lymph % (Auto) [place] % (Auto) 14.9 H 14.6 H Lymph # 1.0 L 1.0 L [place] # 1.0 H 1.0 H Seg Neutrophils % Seg Neuts % (Manual) Lymphocytes % (Manual) Seg Neutrophils # Seg Neutrophils # Man Lymphocytes # (Manual) Percent Retic 6.48 H Haptoglobin PT INR APTT POC ABG pO2 Potassium Chloride 94.5 L Carbon Dioxide 21 L BUN 60 H Creatinine 7.1 H Glucose POC Glucose Phosphorus Magnesium Ferritin Total Bilirubin 1.70 H AST 84 H ALT Total Protein 6.0 L Albumin 3.0 L Lipase Vitamin B12 09/27/17 09/27/17 09/27/17 08:17 08:17 08:17 RDW Plt Count Lymph % (Auto) [place] % (Auto) Lymph # [place] # Seg Neutrophils % Seg Neuts % (Manual) Lymphocytes % (Manual) Seg Neutrophils # Seg Neutrophils # Man Lymphocytes # (Manual) Percent Retic Haptoglobin 20 L PT INR APTT POC ABG pO2 Potassium Chloride Carbon Dioxide BUN Creatinine Glucose POC Glucose Phosphorus Magnesium Ferritin 1889.0 H Total Bilirubin AST ALT Total Protein Albumin Lipase Vitamin B12 > 2000 H 09/28/17 09/28/17 09/29/17 06:03 13:17 07:04 RDW 16.9 H 18.4 H Plt Count 62 L 66 L Lymph % (Auto) 10.6 L [place] % (Auto) 13.4 H 12.2 H Lymph # 1.1 L 0.7 L [place] # 0.9 H Seg Neutrophils % 74.5 H Seg Neuts % (Manual) Lymphocytes % (Manual) Seg Neutrophils # Seg Neutrophils # Man Lymphocytes # (Manual) Percent Retic Haptoglobin PT INR APTT POC ABG pO2 Potassium Chloride 93.4 L Carbon Dioxide BUN 64 H Creatinine 8.5 H Glucose 101 H POC Glucose Phosphorus Magnesium Ferritin Total Bilirubin AST ALT Total Protein Albumin 3.3 L Lipase Vitamin B12 09/30/17 05:43 RDW 17.7 H Plt Count 87 L Lymph % (Auto) [place] % (Auto) 13.9 H Lymph # 1.1 L [place] # 0.9 H Seg Neutrophils % Seg Neuts % (Manual) Lymphocytes % (Manual) Seg Neutrophils # Seg Neutrophils # Man Lymphocytes # (Manual) Percent Retic Haptoglobin PT INR APTT POC ABG pO2 Potassium Chloride Carbon Dioxide BUN Creatinine Glucose POC Glucose Phosphorus Magnesium Ferritin Total Bilirubin AST ALT Total Protein Albumin Lipase Vitamin B12 Allied health notes reviewed: nursing
--- NOTE | 2017-10-02 14:15 | XRay Report ---
AP CHEST: HISTORY: Pulmonary hypertension Moderate cardiomegaly moderate engorgement of the central pulmonary arteries appear relatively stable since 09/23/17 exam. There are mild chronic interstitial changes in both lungs but no evidence for pneumonia, large pleural effusion or pneumothorax. Pacemaker device is unchanged. IMPRESSION: Stable cardiomegaly. An engorged central pulmonary arterial structures consistent with pulmonary hypertension. No significant change since 09/23/17.
[2017-10-02 14:34] VITALS: BP 140/66
--- NOTE | 2017-10-08 11:48 | Query- Present on Admission ---
Dear Rosendo Date:____10/08/17 [place] [employer]/CDS: Nickarianna / Dereje Phone#:___[phone] Exercise your independent professional judgment when responding to this query. Questions asked do not imply a particular answer is desired or expected. We greatly appreciate your clarification on this issue. Clinical Documentation States: 57 year old female was admitted on 09/15/17 The discharge summary (Dr. Robbins) states " 57 YO Female with HTN, ESRD on HD(M,W, F), COPD, Chronic Respiratory Failure on 3L Home oxygen, Diastolic CHF, Pulmonary HTN, SDH who was brought to hospital for AMS and bradycardia to 20s " The Congressional Representative progress note (Dr. Blake 09/30/17) states " Malfunctioning AV fistula " Clinical Findings Show: please ask Dr. Blake if you need further clarification Based on the above clinical scenario and your knowledge of the patient's case please clarify if the diagnosis stated below was present on admission: Diagnosis: ____Malfunctioning AV fistula Present on admission : [ ] Yes (Y) [ x] Clinically undeterminable(W) [ ] No(N) Please also document response in your Progress Notes and/or Discharge Summary and indicate if the condition was present on admission. MTDD
== END 2017-10-02 14:40 | disposition home health service (06) | DRG 242 ==
LOC: ED 13:20 → CATH 14:48 → CC1 15:43 → 4A 09-19 17:32
PROVIDERS: ADMIT Internal Medicine; ATTEND Internal Medicine
PROC: 5A1223Z Performance of Cardiac Pacing, Continuous (ICD-10-PCS; principal; 2017-09-15)
PROC: 02H63JZ Insertion of Pacemaker Lead into Right Atrium, Percutaneous Approach (ICD-10-PCS; 2017-09-15)
PROC: B51VZZZ Fluoroscopy of Other Veins (ICD-10-PCS; 2017-09-15)
PROC: 4A033R1 Measurement of Arterial Saturation, Peripheral, Percutaneous Approach (ICD-10-PCS; 2017-09-15)
PROC: 0JH606Z Insertion of Pacemaker, Dual Chamber into Chest Subcutaneous Tissue and Fascia, Open Approach (ICD-10-PCS; 2017-09-19)
PROC: 057D3ZZ Dilation of Right Cephalic Vein, Percutaneous Approach (ICD-10-PCS; 2017-09-22)
PROC: B51M1ZZ Fluoroscopy of Right Upper Extremity Veins using Low Osmolar Contrast (ICD-10-PCS; 2017-09-22)
PROC: 5A1D70Z Performance of Urinary Filtration, Intermittent, Less than 6 Hours Per Day (ICD-10-PCS; 2017-09-26)
PROC: 0DJ08ZZ Inspection of Upper Intestinal Tract, Via Natural or Artificial Opening Endoscopic (ICD-10-PCS; 2017-09-26)
PROC: 02HK3JZ Insertion of Pacemaker Lead into Right Ventricle, Percutaneous Approach (ICD-10-PCS; 2017-09-26)
PROC: 5A1D70Z Performance of Urinary Filtration, Intermittent, Less than 6 Hours Per Day (ICD-10-PCS; 2017-09-29)
PROC: 5A1D70Z Performance of Urinary Filtration, Intermittent, Less than 6 Hours Per Day (ICD-10-PCS; 2017-10-01)
DX: I44.2 Atrioventricular block, complete (principal); R57.0 Cardiogenic shock; N18.6 End stage renal disease; J96.21 Acute and chronic respiratory failure with hypoxia; G92 Toxic encephalopathy; I13.2 Hypertensive heart and chronic kidney disease with heart failure and with stage 5 chronic kidney disease, or end stage renal disease; T82.590A Other mechanical complication of surgically created arteriovenous fistula, initial encounter; Z94.0 Kidney transplant status; I50.30 Unspecified diastolic (congestive) heart failure; N25.81 Secondary hyperparathyroidism of renal origin; K62.5 Hemorrhage of anus and rectum; E87.5 Hyperkalemia; I27.20 Pulmonary hypertension, unspecified; D69.6 Thrombocytopenia, unspecified; Z99.2 Dependence on renal dialysis; J44.9 Chronic obstructive pulmonary disease, unspecified; Z99.81 Dependence on supplemental oxygen; K21.9 Gastro-esophageal reflux disease without esophagitis; Z79.899 Other long term (current) drug therapy; Z86.73 Personal history of transient ischemic attack (TIA), and cerebral infarction without residual deficits; I95.9 Hypotension, unspecified; Z82.49 Family history of ischemic heart disease and other diseases of the circulatory system; D63.1 Anemia in chronic kidney disease; Z91.19 Patient's noncompliance with other medical treatment and regimen; Z71.89 Other specified counseling; R13.10 Dysphagia, unspecified; K80.80 Other cholelithiasis without obstruction; K31.84 Gastroparesis; Y83.2 Surgical operation with anastomosis, bypass or graft as the cause of abnormal reaction of the patient, or of later complication, without mention of misadventure at the time of the procedure; Y92.89 Other specified places as the place of occurrence of the external cause
CPT/HCPCS: 33208; 33210; 36005; 36415; 36600; 36902; 71010; 74177; 74230; 75820; 76705; 78264; 80048; 80053; 80074; 82550; 82553; 82607; 82728; 82747; 82803; 82962; 83010; 83690; 83735; 84100; 84132; 84484; 85007; 85025; 85027; 85045; 85610; 85730; 86880; 87040; 93005; 93010; 93306; 94640; 94760; 96365; 96366; A9541; C1725; C1769; C1779; C1785; C1892; C1894; C9113; G8978-GP; G8979-GP; G8996-GN; G8997-GN; G8998-GN; J0360; J0461; J0583; J0690; J1200; J1265; J1815; J2250; J2405; J3010; J3370; J7030; J7040; J7050; Q9967

== ENCOUNTER 2018-03-13 18:07 | Emergency (ER) | payer MEDICARE ==
[2018-03-13] MEDS ORDERED: NORCO 5/325 PO ONE (18:40)
[2018-03-13] MEDS ORDERED: CATAPRES PO ONE (18:40)
--- NOTE | 2018-03-13 19:00 | Emergency Department Report ---
HPI - General Chief Complaint: High BP Time Seen by Provider: 03/13/18 18:25 - HPI HPI: Room 7 The patient is a 57-year-old female presenting with chief complaint of hypertension and headache. The patient states she was at hemodialysis when she began experiencing burning abdominal pain. The patient continued on dialysis. After dialysis was completed and patient was felt to be hypertensive with a systolic in the 240s. The patient states she developed a headache thank is a score of 8/10. Patient denies nausea/vomiting or chest pain. Patient denies any other forms of pain. Location: [See above] Duration: [See above] Quality: Headache Severity: 8/10 Modifying factors: [see above] Context: [see above] Mode of transportation: [not driving] ED Past Medical Hx - Past Medical History Hx Hypertension: Yes (CHF) Hx Congestive Heart Failure: Yes (pulmonary htn) Hx GERD: Yes (SOMETIMES) Hx Renal Disease: Yes (KIDNEY TRANSPLANT MARGARET 2000) Hx Arthritis: Yes Hx COPD: Yes Additional medical history: dialysis M, W, F - Surgical History Hx Pacemaker: Yes - Family History Family history: no significant - Social History Smoking Status: Never Smoker Substance Use Type: None (denies illicit drug use) - Medications Home Medications: Home Medications Medication Instructions Recorded Confirmed Last Taken Type Sertraline [Zoloft] 1 tab PO DAILY 02/22/16 10/28/17 09/14/17 History 1 Sevelamer Carbonate [Renvela] 4 tab PO TID 02/22/16 10/28/17 09/14/17 History 4 ALBUTEROL NEB's [Proventil 0.083% 2.5 mg IH TID PRN #120 nebu 09/25/17 10/28/17 Unknown Rx NEBS] Antacid [Alum-Mag Hydrox-Simeth 30 ml PO Q4H PRN #1 bottle 09/25/17 10/28/17 Unknown Rx [id number]] Fluticasone [Flonase] 1 spray NS QDAY #1 bottle 09/25/17 10/28/17 Unknown Rx Ipratropium [Atrovent NEB] 0.5 mg IH Q6HRT #120 nebu 09/25/17 10/28/17 Unknown Rx Metoprolol [Lopressor TAB] 50 mg PO BID #60 tablet 09/25/17 10/28/17 Unknown Rx Pantoprazole [Protonix TAB] 40 mg PO BID #60 tablet 09/25/17 10/28/17 Unknown Rx Sucralfate [Carafate] 1 gm PO ACHS 30 Days oral.liqd 09/25/17 10/28/17 Unknown Rx Tadalafil (Nf) [Adcirca (Nf)] 20 mg PO QDAY #30 tablet 09/25/17 10/28/17 Unknown Rx amLODIPine [Norvasc] 10 mg PO QDAY #30 tablet 09/25/17 10/28/17 Unknown Rx oxyCODONE /ACETAMINOPHEN [Percocet 1 tab PO Q6H PRN #14 tablet 09/25/17 Unknown Rx 5/325 mg] NIFEdipine [Nifedipine ER] 90 mg PO DAILY 10/28/17 10/28/17 Unknown History cloNIDine [Catapres] 0.2 mg PO Q8HR 10/28/17 10/28/17 Unknown History hydrALAZINE [Apresoline TAB] 25 mg PO BID 10/28/17 10/28/17 Unknown History Levofloxacin [Levaquin TAB] 500 mg PO Q48HR #7 tablet 10/31/17 Unknown Rx methylPREDNISolone [Medrol Dose 4 mg PO DAILY #1 pack 10/31/17 Unknown Rx James] Butalb/Acetamin/Caff 50-325-40 2 tab PO Q8HR PRN #10 tablet 03/13/18 Unknown Rx [Fioricet] ED Review of Systems ROS: Stated complaint: HEADACHE Other details as noted in HPI Constitutional: no symptoms reported Eyes: denies: eye pain ENT: denies: throat pain Cardiovascular: denies: chest pain Gastrointestinal: abdominal pain. denies: nausea, vomiting Musculoskeletal: denies: back pain Skin: denies: other (no painful skin lesions) Neurological: headache Physical Exam - Physical Exam Vital Signs: Vital Signs 03/13/18 18:20 Temperature 97.8 F Pulse Rate 89 Respiratory 11 L Rate Blood Pressure 188/92 O2 Sat by Pulse 94 Oximetry Physical Exam: GENERAL: The patient is well-developed well-nourished female lying on stretcher not appearing to be in acute distress. [] HEENT: Normocephalic. Atraumatic. Extraocular motions are intact. Patient has moist mucous membranes. NECK: Supple. Trachea midline CHEST/LUNGS: Clear to auscultation. There is no respiratory distress noted. HEART/CARDIOVASCULAR: Regular. There is no tachycardia. There is no gallop rub or murmur. ABDOMEN: Abdomen is soft, nontender. Patient has normal bowel sounds. There is no abdominal distention. SKIN: There is no rash. There is no edema. There is no diaphoresis. NEURO: The patient is awake, alert, and oriented. The patient is cooperative. The patient has no focal neurologic deficits. The patient has normal speech. Cranial nerves II through XII grossly intact. No drift. Office Cleaner 5+/5 bilaterally. Normal sensation throughout. Moves all extremities well. MUSCULOSKELETAL:There is no evidence of acute injury. NIHSS= 0 LOC a. Alert= 0 Not alert but arousable to minor stimuli=1 Not alert requires repeated or strong stimuli to move= 2 Responds only reflex motor or unresponsive=3 b. asks month and age answers both correctly= 0 answers one correctly= 1 answers neither correctly= 2 Best Gaze normal= 0 abnormal in one or both but forced deviation or total paresis absent= 1 forced deviation or total gaze paresis= 2 Visual no visual loss= 0 partial hemianopia= 1 complete hemianopia= 2 bilateral hemianopia= 3 Facial Palsy normal= 0 minor paralysis= 1 partial paralysis= 2 complete paralysis= 3 Motor Arm no drift= 0 drift before 10 secs but doesnt hit bed= 1 some effort against gravity= 2 no effort against gravity= 3 no movement= 4 Motor leg no drift= 0 drift before 5 secs but doesnt hit bed= 1 drifts to bed before 5 secs= 2 no effort against gravity= 3 no movement= 4 Limb ataxia absent=0 present in one limb= 1 present in two limbs= 2 Sensory normal= 0 mild sensory loss= 1 severe (unaware of being touched)= 2 Best language mild/some loss of fluency= 1 severe= 2 mute= 3 Dysarthria normal= 0 slurs some words= 1 severe/unintelligible= 2 Extinction and Inattention no abnormality= 0 visual, tactile, auditory or personal inattention= 1 profound (doesnt recognize own hand or orients to only one side= 2 ED Course Vital Signs 03/13/18 18:20 Temperature 97.8 F Pulse Rate 89 Respiratory 11 L Rate Blood Pressure 188/92 O2 Sat by Pulse 94 Oximetry ED Medical Decision Making - Lab Data Result diagrams: 03/13/18 18:48 03/13/18 18:48 Laboratory Tests 03/13/18 03/13/18 18:48 18:48 WBC 7.5 RBC 3.96 Hgb 12.2 Hct 37.0 MCV 94 MCH 31 MCHC 33 RDW 14.9 Plt Count 103 L Lymph % (Auto) 7.8 L Hayes % (Auto) 4.1 Eos % (Auto) 0.1 Baso % (Auto) 0.1 Lymph # 0.6 L Hayes # 0.3 Eos # 0.0 Baso # 0.0 Seg Neutrophils % 87.9 H Seg Neutrophils # 6.6 Sodium 141 Potassium 3.3 L Chloride 99.8 Carbon Dioxide 27 Anion Gap 18 BUN 10 Creatinine 2.9 H Estimated GFR 17 BUN/Creatinine Ratio 3 Glucose 75 Calcium 9.4 - Radiology Data Radiology results: report reviewed (CT head), image reviewed (CT head) [place] [address] Cat Scan Report Signed Patient: MARCELINO FORBES MR#: [id number] : 1960 Acct:[id number] Age/Sex: 57 / F ADM Date: 03/13/18 Loc: ED Attending Dr: Ordering Physician: OCTAVIO MUSE MD Date of Service: 03/13/18 Procedure(s): CT head/brain wo con Accession Number(s): [id number] cc: OCTAVIO MUSE MD FINAL REPORT PROCEDURE: CT HEAD/BRAIN WO CON TECHNIQUE: Computerized tomography of the head was performed without contrast material. HISTORY: hypertension, headache COMPARISON: No prior studies are available for comparison. FINDINGS: Skull and scalp: Normal. Paranasal sinuses: Normal. Ventricles and subarachnoid spaces: Normal. Cerebrum: No evidence of hemorrhage, acute infarction or mass. There are mild deep white matter diminished densities suggesting microangiopathy. Cerebellum and brainstem: No evidence of hemorrhage, acute infarction or mass. Vasculature: Normal. Comments: None. IMPRESSION: Mild involutional change. No hemorrhage Transcribed By: BRP Dictated By: ANDREI GOODEN MD Electronically Authenticated By: ANDREI GOODEN MD Signed Date/Time: 03/13/182010 DD/ 10 TD/TT: 03/13/182010 - Differential Diagnosis hypertensive urgency Critical care attestation.: If time is entered above; I have spent that time in minutes in the direct care of this critically ill patient, excluding procedure time. ED Disposition Clinical Impression: Hypertension, ESRD (end stage renal disease), Headache Disposition: - TO HOME OR SELFCARE Is pt being admited?: No Does the pt Need Aspirin: No Condition: Stable Instructions: Hypertension (ED) Additional Instructions: Return to the emergency department immediately should you develop worsening symptoms, fever, inability to tolerate food or liquid or any other concerns. Prescriptions: Butalb/Acetamin/Caff 50-325-40 [Fioricet] 2 tab PO Q8HR PRN #10 tablet PRN Reason: Headache Referrals: PRIMARY CARE, [Primary Care Provider] - 3-5 Days Time of Disposition: 20:29
[2018-03-13 19:20] LABS: Basophils % (Auto) 0.1 % (0.0-1.8); Eosinophils % (Auto) 0.1 % (0.0-4.3); Hemoglobin 12.2 gm/dl (10.1-14.3); Lymphocytes # (Auto) 0.6 K/mm3 (1.2-5.4); Lymphocytes % (Auto) 7.8 % (13.4-35.0); Mean Corpuscular HGB Conc 33 % (30-34); Mean Corpuscular Hemoglobin 31 pg (28-32); Mean Corpuscular Volume 94 fl (79-97); Monocytes # (Auto) 0.3 K/mm3 (0.0-0.8); Monocytes % (Auto) 4.1 % (0.0-7.3); Platelet Count 103 K/mm3 (140-440); Red Blood Count 3.96 M/mm3 (3.65-5.03); Red Cell Distribution Width 14.9 % (13.2-15.2)
[2018-03-13 19:36] LABS: Calcium 9.4 mg/dL (8.4-10.2)
[2018-03-13] MEDS ORDERED: BENADRYL PO ONE ×2 (20:10)
--- NOTE | 2018-03-13 20:16 | Cat Scan Report ---
FINAL REPORT PROCEDURE: CT HEAD/BRAIN WO CON TECHNIQUE: Computerized tomography of the head was performed without contrast material. HISTORY: hypertension, headache COMPARISON: No prior studies are available for comparison. FINDINGS: Skull and scalp: Normal. Paranasal sinuses: Normal. Ventricles and subarachnoid spaces: Normal. Cerebrum: No evidence of hemorrhage, acute infarction or mass. There are mild deep white matter diminished densities suggesting microangiopathy. Cerebellum and brainstem: No evidence of hemorrhage, acute infarction or mass. Vasculature: Normal. Comments: None. IMPRESSION: Mild involutional change. No hemorrhage
[2018-03-13 20:45] VITALS: BP 159/73
== END 2018-03-13 20:46 | disposition home or self-care (01) ==
LOC: ED 18:07
DX: I12.0 Hypertensive chronic kidney disease with stage 5 chronic kidney disease or end stage renal disease (principal); N18.6 End stage renal disease; R51 Headache; M19.90 Unspecified osteoarthritis, unspecified site; K21.9 Gastro-esophageal reflux disease without esophagitis; Z95.0 Presence of cardiac pacemaker; Z94.0 Kidney transplant status
CPT/HCPCS: 36415; 70450; 80048; 85025

== ENCOUNTER 2019-02-18 06:39 | Inpatient (IN) | payer MEDICARE ==
[2019-02-18] MEDS ORDERED: ceFAZolin 2 GM in NACL 0.9% 100 ML IV ONE (07:26)
[2019-02-18] MEDS ORDERED: PROVENTIL IH NR (07:30)
[2019-02-18] MEDS: NACL 0.9% 1000 ML 1,000 ML IV SCH (07:56)
[2019-02-18] MEDS ORDERED: ANCEF/STERILE WATER 2 GM/20 ML 2 GM/20 ML SYRINGE IV SCH (08:00)
--- NOTE | 2019-02-18 08:17 | Anesthesia Day of Surgery ---
Anesthesia Day of Surgery - Day of Surgery Patient Examined: Yes Patient H&P Reviewed: Yes Patient is NPO: Yes
--- NOTE | 2019-02-18 08:17 | Anesthesia Consultation ---
Anesthesia Consult and Med Hx - Airway Anesthetic Teeth Evaluation: Poor ROM Head & Neck: Adequate Mental/Hyoid Distance: Adequate Mallampati Class: Class II Intubation Access Assessment: Good - Pulmonary Exam CTA: Yes - Cardiac Exam Cardiac Exam: RRR (Pacer palpable) - Pre-Operative Health Status ASA Pre-Surgery Classification: ASA4 Proposed Anesthetic Plan: General (Patient with hx of HTN, CVA, Heart block s/p Pacer, COPD on 3 L O2, ESRD on HD for GA , cardiac and pulmonary clearance on chart with get pre op Nebulisation as well as incentive spirometry ) - Pulmonary Hx Smoking: No Hx Asthma: No Hx Respiratory Symptoms: Yes (Chronic Respiratory Failure) SOB: Yes (3L O2) COPD: Yes (3L O2) Hx Pneumonia: No Hx Sleep Apnea: No - Cardiovascular System Hx Hypertension: Yes (2008) Hx Coronary Artery Disease: Yes Hx Heart Attack/AMI: No Hx Angina: No Hx Percutaneous Transluminal Coronary Angioplasty (PTCA): No Hx Cardia Arrhythmia: Yes (Complete Heart Block) Hx Pacemaker: Yes Hx Internal Defibrillator: No Hx Valvular Heart Disease: No Hx Heart Murmur: No Hx Peripheral Vascular Disease: No - Central Nervous System CVA: Yes (2013 (L SIDE WEAKNESS)) Hx Back Pain: No Hx Psychiatric Problems: No - Gastrointestinal Hx Ulcer: No - Endocrine Hx Renal Disease: Yes Hx End Stage Renal Disease: Yes Hx Cirrhosis: No Hx Liver Disease: No Hx Hypothyroidism: No Hx Hyperthyroidism: No - Hematic Hx Anemia: Yes Hx Sickle Cell Disease: No - Other Systems Hx Alcohol Use: No Hx Substance Use: No Hx Cancer: No Hx Obesity: No
[2019-02-18] MEDS ORDERED: XYLOCAINE 1% 20 mL ONE (08:19)
[2019-02-18] MEDS ORDERED: MARCAINE 0.5% INFILTRATI ONE ×2 (08:19→10:30)
[2019-02-18] MEDS ORDERED: XYLOCAINE MPF 2% ONE (08:38)
[2019-02-18] MEDS ORDERED: SUBLIMAZE ONE ×2 (08:38→13:36)
[2019-02-18] MEDS ORDERED: ZEMURON IV ONE (08:38)
[2019-02-18] MEDS ORDERED: DIPRIVAN 10 MG/ML IV ONE (08:39)
[2019-02-18] MEDS ORDERED: DILAUDID IV PRN ×2 (09:00→15:18)
[2019-02-18] MEDS ORDERED: ZOFRAN IV PRN ×2 (09:00→13:32)
[2019-02-18] MEDS ORDERED: ZOFRAN ONE (09:01)
[2019-02-18] MEDS ORDERED: NACL 0.9% 100 ML ONE (09:59)
[2019-02-18] MEDS ORDERED: NEO SYNEPHRINE ONE (10:00)
[2019-02-18] MEDS ORDERED: XYLOCAINE 1% 20 mL INFILTRATI ONE (10:30)
[2019-02-18] MEDS ORDERED: WATER FOR IRRIG STERILE IR ONE (10:30)
[2019-02-18] MEDS ORDERED: NACL 0.9% IR ONE ×2 (10:30)
[2019-02-18] MEDS ORDERED: SODIUM CHLORIDE FLUSH SYRINGE 10 ML IV PRN (13:32)
[2019-02-18] MEDS ORDERED: NARCAN 0.4 MG/1 ML IV PRN (13:32)
[2019-02-18] MEDS ORDERED: DILAUDID ONE ×2 (13:35→15:57)
[2019-02-18] MEDS ORDERED: APRESOLINE IV PRN (13:35)
--- NOTE | 2019-02-18 13:38 | Post Operative Note ---
Date of procedure: 02/18/19 Pre-op diagnosis: chronic cholecystitis Post-op diagnosis: same Findings: 1. gallbladder with thickened wall and stones Procedure: robotic assisted cholecystectomy Anesthesia: RITOA, local Surgeon: UMANG BOWSER Entry Specialist: DARINEL AYALA Estimated blood loss: other (200cc) Pathology: list (gallbladder) Specimen disposition: to lab Condition: stable Disposition: PACU
--- NOTE | 2019-02-18 13:40 | Event Note ---
Date: 02/18/19 58 Yo F with pulmonary and cardiac history, pacemaker presented for elective cholecystectomy for chronic cholecystitis. During surgery there was bleeding from the omentum which was explored and controlled. However, due to the longer operative time and the patient's medical history, I decided to admit her for observation. Stat labs to be drawn in PACU. The patient's sister/POA was updated and all questions answered.
[2019-02-18] MEDS ORDERED: PROVENTIL IH STA (13:55)
[2019-02-18 15:24] LABS: Hematocrit 38.8 % (30.3-42.9); Hemoglobin 12.7 gm/dl (10.1-14.3); Mean Corpuscular HGB Conc 33 % (30-34); Mean Corpuscular Volume 98 fl (79-97); Platelet Count 118 K/mm3 (140-440); Red Blood Count 3.97 M/mm3 (3.65-5.03); Red Cell Distribution Width 15.8 % (13.2-15.2)
[2019-02-18 15:52] LABS: Calcium 8.5 mg/dL (8.4-10.2)
[2019-02-18] MEDS ORDERED: NACL 0.9% 1000 ML 500 ML IV ONE (17:18)
[2019-02-18] MEDS: TORADOL IV PRN (17:35)
--- NOTE | 2019-02-18 17:42 | Post Anesthesia Evaluation ---
- Post Anesthesia Evaluation Patient Participated: Yes Airway Patent: Yes Stable Respiratory Function: Yes (on BIPAP.) Nausea/Vomiting: No Temp > 96.8F: Yes Pain Manageable: Yes Adequeate Hydration: Yes Anesthesia Complications: No Block Receding Appropriately: Not Applicable Patient on Ventilator: No (On Bipap)
[2019-02-18] MEDS: LOPRESSOR IV SCH (18:00)
[2019-02-18] MEDS: MORPHINE IV PRN (19:45)
--- NOTE | 2019-02-18 21:48 | Event Note ---
Date: 02/18/19 Spoke with the staff a few times tonight. Pt responded well to a 500cc NS bolus as well as toradol. BP improved significantly. Now we are back with pain issues. Morphine not effective enough. Will order 0.2mg of Dilaudid q3h prn. Also, will increase the IVF rate to 75cc/hr. As she will probably be dialyzed tomorrow, I will give her a little extra tonight to support her BP while she is getting narcotics. Per the staff report, she has remained alert and following commands. The impression I get from their reports does not make me concerned that she is active bleeding. The drain description also does not sound like active bleeding. I think she is probably a little dry from her NPO status.
[2019-02-19] MEDS: MORPHINE IV PRN ×3 (00:45→21:07)
[2019-02-19] MEDS: NACL 0.9% 1000 ML 1,000 ML IV SCH (03:13)
[2019-02-19] MEDS: LOPRESSOR IV SCH ×2 (03:14→06:17)
[2019-02-19] MEDS: SODIUM CHLORIDE FLUSH SYRINGE 10 ML IV SCH ×3 (05:32→21:14)
[2019-02-19 08:04] LABS: Basophils % (Auto) 0.5 % (0.0-1.8); Eosinophils % (Auto) 0.5 % (0.0-4.3); Lymphocytes # (Auto) 0.5 K/mm3 (1.2-5.4); Lymphocytes % (Auto) 6.9 % (13.4-35.0); Mean Corpuscular HGB Conc 33 % (30-34); Mean Corpuscular Volume 98 fl (79-97); Monocytes # (Auto) 0.6 K/mm3 (0.0-0.8); Monocytes % (Auto) 7.9 % (0.0-7.3); Red Blood Count 3.69 M/mm3 (3.65-5.03); Red Cell Distribution Width 15.7 % (13.2-15.2)
[2019-02-19 08:11] LABS: Platelet Count 86 K/mm3 (140-440)
[2019-02-19 08:25] LABS: Albumin 3.5 g/dL (3.9-5); Calcium 8.7 mg/dL (8.4-10.2)
--- NOTE | 2019-02-19 09:05 | Consultation ---
History of Present Illness - Reason for Consult Consult date: 02/19/19 end stage renal disease - History of Present Illness Mrs. Healy is a 58yo with ESRD on HD MWF who presented to [facility] for elective cholecystectomy for chronic cholecystitis. Per surgery note, during surgery there was bleeding from the omentum which was explored and controlled. She was admitted for observation. Past History Past Medical History: COPD, ESRD, hypertension, other (hx of complete heart block s/p pacemaker, pulmonary hypertension) Past Surgical History: Other (Pacemaker implantation) Social history: no significant social history Family history: no significant family history Medications and Allergies Allergies Allergy/AdvReac Type Severity Reaction Status Date / Time heparin Allergy Intermediate Itching Verified 02/17/19 13:44 lisinopril AdvReac Mild COUGH Verified 02/17/19 13:44 Home Medications Medication Instructions Recorded Confirmed Last Taken Type Sertraline [Zoloft] 1 tab PO DAILY 02/22/16 02/18/19 02/17/19 21:00 History ALBUTEROL NEB's [Proventil 0.083% 2.5 mg IH TID PRN #120 nebu 09/25/17 02/18/19 02/18/19 07:55 Rx NEBS] Fluticasone [Flonase] 1 spray NS QDAY #1 bottle 09/25/17 02/18/19 02/17/19 09:00 Rx Metoprolol [Lopressor TAB] 50 mg PO BID #60 tablet 09/25/17 02/18/19 02/16/19 09:00 Rx amLODIPine [Norvasc] 10 mg PO QDAY #30 tablet 09/25/17 02/18/19 02/16/19 09:00 Rx NIFEdipine [Nifedipine ER] 90 mg PO DAILY 10/28/17 02/18/19 02/16/19 09:00 History hydrALAZINE [Apresoline TAB] 25 mg PO TID 10/28/17 02/18/19 02/16/19 09:00 History ALBUTEROL Inhaler (OR & NICU) 2 puff IH QID PRN 02/17/19 02/18/19 02/17/19 09:00 History [Proair] AtorvaSTATin [Lipitor] 20 mg PO QHS 02/17/19 02/18/19 02/17/19 21:00 History Carvedilol [Coreg] 12.5 mg PO BID 02/17/19 02/18/19 02/17/19 21:00 History Dexlansoprazole [Dexilant] 60 mg PO QDAY 02/17/19 02/18/19 02/16/19 09:00 History Fluticasone (Nf) [Flovent 220 2 puff IH BID 02/17/19 02/18/19 02/17/19 09:00 History MCG/PUFF HFA] Loratadine [Claritin] 10 mg PO DAILY 02/17/19 02/18/19 02/17/19 10:00 History Pregabalin [Lyrica] 50 mg PO DAILY 02/17/19 02/17/19 Unknown History Tadalafil [Cialis] 20 mg PO BID 02/17/19 02/18/19 Unknown History Zolpidem [Ambien] 10 mg PO QHS 02/17/19 02/18/19 02/17/19 21:00 History cloNIDine [Catapres] 0.1 mg PO BID 02/17/19 02/17/19 Unknown History hydrOXYzine HCL [Atarax] 25 mg PO Q6HR PRN 02/17/19 02/18/19 02/17/19 12:00 History Active Meds: Active Medications Acetaminophen (Tylenol) 650 mg PO Q4H PRN PRN Reason: Pain MILD(1-3)/Fever >100.5/TURNER Hydralazine HCl (Apresoline) 10 mg IV Q6H PRN PRN Reason: Hypertension Hydromorphone HCl (Dilaudid) 0.25 mg IV Q10MIN PRN PRN Reason: Pain, Moderate (4-6) Last Admin: 02/18/19 15:30 Dose: 0.25 mg Documented by: Hydromorphone HCl (Dilaudid) 0.2 mg IV Q3H PRN PRN Reason: Pain , Severe (7-10) Sodium Chloride (Nacl 0.9% 1000 Ml) 1,000 mls @ 75 mls/hr IV DIRECT CATHY Last Admin: 02/19/19 03:13 Dose: 42 mls/hr Documented by: Ketorolac Tromethamine (Toradol) 30 mg IV ONCE PRN PRN Reason: Pain , Severe (7-10) Stop: 02/23/19 17:16 Last Admin: 02/18/19 17:35 Dose: 30 mg Documented by: Metoprolol Tartrate (Lopressor) 5 mg IV Q6HR [facility] Last Admin: 02/19/19 06:17 Dose: 5 mg Documented by: Morphine Sulfate (Morphine) 2 mg IV Q4H PRN PRN Reason: Pain, Moderate (4-6) Last Admin: 02/19/19 05:35 Dose: 2 mg Documented by: Naloxone HCl (Narcan 0.4 Mg/1 Ml) 0.1 mg IV Q2MIN PRN PRN Reason: Res Rate </= 8 or 02 SAT < 92% Ondansetron HCl (Zofran) 4 mg IV Q8H PRN PRN Reason: Nausea And Vomiting Ondansetron HCl (Zofran) 4 mg IV Q6H PRN PRN Reason: Nausea And Vomiting Sodium Chloride (Sodium Chloride Flush Syringe 10 Ml) 10 ml IV BID [facility] Last Admin: 02/19/19 05:32 Dose: 10 ml Documented by: Sodium Chloride (Sodium Chloride Flush Syringe 10 Ml) 10 ml IV PRN PRN PRN Reason: LINE FLUSH Review of Systems All systems: negative Exam - Vital Signs Vital signs: Vital Signs Temp Pulse Resp BP Pulse Ox 98.2 F 79 14 110/59 97 02/18/19 07:05 02/18/19 07:05 02/18/19 07:05 02/18/19 07:05 02/18/19 07:05 - General Appearance General appearance: well-developed, well-nourished EENT: ATNC Respiratory: Clear to Ascultation Heart: regular, S1S2 Gastrointestinal: Present: normal. Absent: tenderness, distended Integumentary: warm and dry Musculoskeletal: Present: other (no edema) Psychiatric: cooperative Results - Lab Results 02/20/19 03:22 02/19/19 07:53 Most recent lab results Calcium 8.7 mg/dL (8.4-10.2) 02/19/19 07:53 Assessment and Plan Impression * End-stage renal disease on maintenance hemodialysis * s/p Cholecystecomy for chronic cholecystitis * Hx of complete heart block --s/p permanent pacemaker placement * Hypertension * Anemia secondary to ESRD * Secondary hyperparathyroidism Recommendations * Continue hemodialysis on MWF * UF as tolerated * Diet per surgery * Epogen with dialysis prn * No IV, BP of any puncture in her access arm
[2019-02-19] MEDS ORDERED: NACL 0.9% 100 ML IV PRN (10:10)
[2019-02-19] MEDS ORDERED: ALBURX 25% (ALBUMIN) IV PRN (10:10)
[2019-02-19] MEDS: DILAUDID IV PRN ×3 (10:45→23:17)
--- NOTE | 2019-02-19 13:21 | Fluoroscopy Report ---
UPPER GI AIR CONTRAST: History: Postop. FINDINGS: 25 fluoroscopic images were captured during this exam The patient ingested barium without difficulty. The esophageal contour is normal. There are no ulcerations or filling defects seen in the esophagus. A small hiatal hernia was witnessed throughout this exam. Multiple episodes of gastroesophageal reflux to the proximal esophagus was also witnessed. The gastric contour and position appear normal. There are no ulcerations or filling defects in the stomach. The duodenal bulb and duodenal sweep appear normal. IMPRESSION: Small hiatal hernia and multiple episodes of gastroesophageal reflux.
--- NOTE | 2019-02-19 13:56 | Consultation ---
History of Present Illness Consult date: 02/19/19 Requesting physician: UMANG BOWSER Reason for consult: COPD History of present illness: PULMONARY/CCM CONSULT NOTE (Full dictation # [id number]) Please see dictated notes for full details Medications and Allergies Allergies Allergy/AdvReac Type Severity Reaction Status Date / Time heparin Allergy Intermediate Itching Verified 02/17/19 13:44 lisinopril AdvReac Mild COUGH Verified 02/17/19 13:44 Home Medications Medication Instructions Recorded Confirmed Last Taken Type Sertraline [Zoloft] 1 tab PO DAILY 02/22/16 02/18/19 02/17/19 21:00 History ALBUTEROL NEB's [Proventil 0.083% 2.5 mg IH TID PRN #120 nebu 09/25/17 02/18/19 02/18/19 07:55 Rx NEBS] Fluticasone [Flonase] 1 spray NS QDAY #1 bottle 09/25/17 02/18/19 02/17/19 09:00 Rx Metoprolol [Lopressor TAB] 50 mg PO BID #60 tablet 09/25/17 02/18/19 02/16/19 09:00 Rx amLODIPine [Norvasc] 10 mg PO QDAY #30 tablet 09/25/17 02/18/19 02/16/19 09:00 Rx NIFEdipine [Nifedipine ER] 90 mg PO DAILY 10/28/17 02/18/19 02/16/19 09:00 History hydrALAZINE [Apresoline TAB] 25 mg PO TID 10/28/17 02/18/19 02/16/19 09:00 History ALBUTEROL Inhaler (OR & NICU) 2 puff IH QID PRN 02/17/19 02/18/19 02/17/19 09:00 History [Proair] AtorvaSTATin [Lipitor] 20 mg PO QHS 02/17/19 02/18/19 02/17/19 21:00 History Carvedilol [Coreg] 12.5 mg PO BID 02/17/19 02/18/19 02/17/19 21:00 History Dexlansoprazole [Dexilant] 60 mg PO QDAY 02/17/19 02/18/19 02/16/19 09:00 History Fluticasone (Nf) [Flovent 220 2 puff IH BID 02/17/19 02/18/19 02/17/19 09:00 History MCG/PUFF HFA] Loratadine [Claritin] 10 mg PO DAILY 02/17/19 02/18/19 02/17/19 10:00 History Pregabalin [Lyrica] 50 mg PO DAILY 02/17/19 02/17/19 Unknown History Tadalafil [Cialis] 20 mg PO BID 02/17/19 02/18/19 Unknown History Zolpidem [Ambien] 10 mg PO QHS 02/17/19 02/18/19 02/17/19 21:00 History cloNIDine [Catapres] 0.1 mg PO BID 02/17/19 02/17/19 Unknown History hydrOXYzine HCL [Atarax] 25 mg PO Q6HR PRN 02/17/19 02/18/19 02/17/19 12:00 History Active Meds: Active Medications Acetaminophen (Tylenol) 650 mg PO Q4H PRN PRN Reason: Pain MILD(1-3)/Fever >100.5/TURNER Albumin Human (Alburx 25% (Albumin)) 25 gm IV NANNETTE PRN PRN Reason: Hypotension Albuterol (Proventil) 2.5 mg IH Q8HRT [facility] Atorvastatin Calcium (Lipitor) 20 mg PO QHS CATHY Clonidine HCl (Catapres) 0.1 mg PO Q12HR CATHY Fluticasone Propionate (Flonase) 50 mcg NS DAILY CATHY Hydralazine HCl (Apresoline) 25 mg PO Q8HR CATHY Hydromorphone HCl (Dilaudid) 0.25 mg IV Q10MIN PRN PRN Reason: Pain, Moderate (4-6) Last Admin: 02/18/19 15:30 Dose: 0.25 mg Documented by: Hydromorphone HCl (Dilaudid) 0.2 mg IV Q3H PRN PRN Reason: Pain , Severe (7-10) Last Admin: 02/19/19 10:45 Dose: 0.2 mg Documented by: Sodium Chloride (Nacl 0.9% 1000 Ml) 1,000 mls @ 75 mls/hr IV DIRECT CATHY Last Admin: 02/19/19 03:13 Dose: 42 mls/hr Documented by: Sodium Chloride (Nacl 0.9%) 100 mls @ 999 mls/hr IV NANNETTE PRN PRN Reason: Hypotension Ketorolac Tromethamine (Toradol) 30 mg IV ONCE PRN PRN Reason: Pain , Severe (7-10) Stop: 02/23/19 17:16 Last Admin: 02/18/19 17:35 Dose: 30 mg Documented by: Loratadine (Claritin) 10 mg PO QDAY [facility] Metoprolol Tartrate (Lopressor) 50 mg PO BID [facility] Morphine Sulfate (Morphine) 2 mg IV Q4H PRN PRN Reason: Pain, Moderate (4-6) Last Admin: 02/19/19 05:35 Dose: 2 mg Documented by: Naloxone HCl (Narcan 0.4 Mg/1 Ml) 0.1 mg IV Q2MIN PRN PRN Reason: Res Rate </= 8 or 02 SAT < 92% Ondansetron HCl (Zofran) 4 mg IV Q8H PRN PRN Reason: Nausea And Vomiting Ondansetron HCl (Zofran) 4 mg IV Q6H PRN PRN Reason: Nausea And Vomiting Pantoprazole Sodium (Protonix) 40 mg IV QDAY [facility] Pregabalin (Lyrica) 50 mg PO QDAY [facility] Sodium Chloride (Sodium Chloride Flush Syringe 10 Ml) 10 ml IV BID [facility] Last Admin: 02/19/19 05:32 Dose: 10 ml Documented by: Sodium Chloride (Sodium Chloride Flush Syringe 10 Ml) 10 ml IV PRN PRN PRN Reason: LINE FLUSH Physical Examination Vital signs: Vital Signs Temp Pulse Resp BP Pulse Ox 98.2 F 79 14 110/59 97 02/18/19 07:05 02/18/19 07:05 02/18/19 07:05 02/18/19 07:05 02/18/19 07:05 Results - Laboratory Findings CBC and BMP: 02/21/19 04:45 02/21/19 04:45 Abnormal lab findings: Abnormal Labs 02/18/19 02/18/19 02/18/19 08:03 14:50 14:50 MCV 98 H MCH RDW 15.8 H Plt Count 118 L Lymph % (Auto) Lassen % (Auto) Lymph # Seg Neutrophils % POC Potassium 3.4 L Sodium 136 L Potassium Chloride 95.8 L Carbon Dioxide 19 L POC BUN 37 H BUN 41 H Creatinine 8.2 H Glucose 139 H AST Albumin 02/19/19 02/19/19 07:53 07:53 MCV 98 H MCH 33 H RDW 15.7 H Plt Count 86 L Lymph % (Auto) 6.9 L Lassen % (Auto) 7.9 H Lymph # 0.5 L Seg Neutrophils % 84.2 H POC Potassium Sodium Potassium 5.6 H Chloride Carbon Dioxide POC BUN BUN 53 H Creatinine 10.1 H Glucose AST 56 H Albumin 3.5 L
--- NOTE | 2019-02-19 14:28 | Progress Note ---
Assessment and Plan 58 yo F s/p robotic cholecystectomy, POD 1 Plan: 1. UGI series negative for leak - adv to renal diet 2. prn pain control - will switch to PO once patient has tolerated diet 3. EDIN drain - strict output monitoring 4. HD today, nephro recs appreciated 5. pulm consulted - recs appreciated 6. resume home medications 7. IS/pulm toilet 8. repeat labs in am 9. anticipate DC in am tomorrow. Thank you, please call with questions. Subjective Date of service: 02/19/19 Narrative: PT seen and examined. c/o some pain near Edin site. Also c/o reflux. No n/v. No f/c. No CP, SOB. Had an episode of hypotension yesterday afternoon which resolved after a 500cc bolus of NS. Objective Vital Signs - 12hr 02/19/19 02/19/19 02/19/19 02:31 02:41 02:51 Temperature Pulse Rate 74 74 75 Pulse Rate [ Apical] Respiratory 13 12 13 Rate Blood Pressure 123/60 123/60 123/60 O2 Sat by Pulse 99 100 100 Oximetry 02/19/19 02/19/19 02/19/19 03:00 03:11 03:14 Temperature Pulse Rate 82 72 75 Pulse Rate [ Apical] Respiratory 19 13 Rate Blood Pressure 139/69 139/69 133/65 O2 Sat by Pulse 100 100 Oximetry 02/19/19 02/19/19 02/19/19 03:21 03:31 03:41 Temperature Pulse Rate 81 75 75 Pulse Rate [ Apical] Respiratory 17 12 12 Rate Blood Pressure 123/60 123/60 123/60 O2 Sat by Pulse 100 100 100 Oximetry 02/19/19 02/19/19 02/19/19 03:51 04:00 04:11 Temperature Pulse Rate 84 75 74 Pulse Rate [ 82 Apical] Respiratory 20 16 18 Rate Blood Pressure 123/60 147/68 147/68 O2 Sat by Pulse 100 100 100 Oximetry 02/19/19 02/19/19 02/19/19 04:21 04:31 04:38 Temperature 97.2 F L Pulse Rate 78 79 Pulse Rate [ Apical] Respiratory 15 16 Rate Blood Pressure 147/68 147/68 O2 Sat by Pulse 99 99 Oximetry 02/19/19 02/19/19 02/19/19 04:41 04:51 05:00 Temperature Pulse Rate 79 77 77 Pulse Rate [ Apical] Respiratory 12 18 18 Rate Blood Pressure 147/68 147/68 133/61 O2 Sat by Pulse 98 99 99 Oximetry 02/19/19 02/19/19 02/19/19 05:11 05:21 05:31 Temperature Pulse Rate 78 80 81 Pulse Rate [ Apical] Respiratory 31 H 17 14 Rate Blood Pressure 133/61 133/61 133/61 O2 Sat by Pulse 99 98 100 Oximetry 02/19/19 02/19/19 02/19/19 05:41 05:51 06:00 Temperature Pulse Rate 80 78 80 Pulse Rate [ Apical] Respiratory 17 16 8 L Rate Blood Pressure 133/61 133/61 133/61 O2 Sat by Pulse 99 99 99 Oximetry 02/19/19 02/19/19 02/19/19 06:11 06:17 06:21 Temperature Pulse Rate 82 82 85 Pulse Rate [ Apical] Respiratory 12 10 L Rate Blood Pressure 140/65 140/65 140/65 O2 Sat by Pulse 97 99 Oximetry 02/19/19 02/19/19 02/19/19 06:31 06:40 06:50 Temperature Pulse Rate 79 80 80 Pulse Rate [ Apical] Respiratory 14 14 14 Rate Blood Pressure 140/65 140/65 140/65 O2 Sat by Pulse 99 100 100 Oximetry 02/19/19 02/19/19 02/19/19 07:00 07:12 08:00 Temperature 97.7 F Pulse Rate 79 88 Pulse Rate [ Apical] Respiratory 13 Rate Blood Pressure 141/74 O2 Sat by Pulse 99 Oximetry 02/19/19 02/19/19 02/19/19 08:04 11:00 12:00 Temperature 97.6 F 97.6 F Pulse Rate Pulse Rate [ Apical] Respiratory Rate Blood Pressure O2 Sat by Pulse 98 Oximetry 02/19/19 02/19/19 02/19/19 12:30 12:40 12:45 Temperature 98.2 F Pulse Rate 86 84 85 Pulse Rate [ Apical] Respiratory 18 Rate Blood Pressure 129/66 124/64 115/58 O2 Sat by Pulse Oximetry 02/19/19 02/19/19 13:00 13:15 Temperature Pulse Rate 90 91 H Pulse Rate [ Apical] Respiratory Rate Blood Pressure 102/55 105/60 O2 Sat by Pulse Oximetry - General physical appearance Narrative Exam: Gen: AAOx3. NAD ENT: no scleral icterus or conjunctival pallor CV:S1, s2+ resp; even and unlabored Abd: soft, NT, ND. incisions c/d/i. R Edin drain with minimal sanguenous drainage Ext; no c/c/e - Labs 02/19/19 07:53 02/19/19 07:53 Diabetes panel 02/18/19 02/19/19 Range/Units 14:50 07:53 Sodium 136 L 140 (137-145) mmol/L Potassium 4.9 5.6 H (3.6-5.0) mmol/L Chloride 95.8 L 99.8 (98-107) mmol/L Carbon Dioxide 19 L 22 (22-30) mmol/L BUN 41 H 53 H (7-17) mg/dL Creatinine 8.2 H 10.1 H (0.7-1.2) mg/dL Glucose 139 H 96 (65-100) mg/dL Calcium 8.5 8.7 (8.4-10.2) mg/dL AST 56 H (5-40) units/L ALT 17 (7-56) units/L Alkaline Phosphatase 78 (35-129) units/L Total Protein 6.3 (6.3-8.2) g/dL Albumin 3.5 L (3.9-5) g/dL Calcium panel 02/18/19 02/19/19 Range/Units 14:50 07:53 Calcium 8.5 8.7 (8.4-10.2) mg/dL Albumin 3.5 L (3.9-5) g/dL Pituitary panel 02/18/19 02/19/19 Range/Units 14:50 07:53 Sodium 136 L 140 (137-145) mmol/L Potassium 4.9 5.6 H (3.6-5.0) mmol/L Chloride 95.8 L 99.8 (98-107) mmol/L Carbon Dioxide 19 L 22 (22-30) mmol/L BUN 41 H 53 H (7-17) mg/dL Creatinine 8.2 H 10.1 H (0.7-1.2) mg/dL Glucose 139 H 96 (65-100) mg/dL Calcium 8.5 8.7 (8.4-10.2) mg/dL Adrenal panel 02/18/19 02/19/19 Range/Units 14:50 07:53 Sodium 136 L 140 (137-145) mmol/L Potassium 4.9 5.6 H (3.6-5.0) mmol/L Chloride 95.8 L 99.8 (98-107) mmol/L Carbon Dioxide 19 L 22 (22-30) mmol/L BUN 41 H 53 H (7-17) mg/dL Creatinine 8.2 H 10.1 H (0.7-1.2) mg/dL Glucose 139 H 96 (65-100) mg/dL Calcium 8.5 8.7 (8.4-10.2) mg/dL Total Bilirubin 0.40 (0.1-1.2) mg/dL AST 56 H (5-40) units/L ALT 17 (7-56) units/L Alkaline Phosphatase 78 (35-129) units/L Total Protein 6.3 (6.3-8.2) g/dL Albumin 3.5 L (3.9-5) g/dL
--- NOTE | 2019-02-19 15:35 | Operative Report ---
PREOPERATIVE DIAGNOSIS: Chronic cholecystitis. POSTOPERATIVE DIAGNOSIS: Chronic cholecystitis. FINDINGS: Gallbladder with thickened wall and stones. PROCEDURE: Robotic-assisted cholecystectomy. ANESTHESIA: General endotracheal anesthesia, local. SURGEON: Romi Nelson DO HAND MOLD MAKER: Eli Prieto MD ESTIMATED BLOOD LOSS: 200 mL. PATHOLOGY: Gallbladder. SPECIMEN DISPOSITION: To lab. CONDITION DISPOSITION: The patient is stable to PACU. HISTORY OF PRESENT ILLNESS AND INDICATIONS: The patient is a 58-year-old female who presented to the surgery clinic with complaints of upper abdominal pain, persistent nausea and vomiting. Upon review of her imaging, she was seen to have chronic cholecystitis. Cholecystectomy was recommended. The patient did have a history of complete heart block, status post pacemaker as well as COPD, on home O2. She was seen by her reading recovery teacher and mobile developer as an outpatient and cleared for surgery. All risks, benefits, and alternatives of surgery were discussed with the patient as well as her sister who is her power of state's attorney and all questions answered. Consent was obtained. PROCEDURE IN DETAIL: The patient was identified in the preoperative area and taken back to the operating room and placed on the operating table in supine position. After anesthesia was induced, the abdomen was prepped and draped in the usual sterile fashion. Timeout was performed. The right arm was tucked and all bony prominences padded. A local anesthetic was infiltrated into all skin incisions at the intended incision sites. A 12 mm incision was made above the umbilicus through which a Veress needle was inserted. The Veress needle position was confirmed using the saline drop test. However, despite two attempts, the abdomen would not insufflate more than a 5-7 mmHg. Therefore, it was decided to gain access to the abdomen using the Optiview technique. A 12 mm Optiview balloon trocar was inserted into this incision as the skin was tented upwards and inserted into the abdomen under direct visualization. The camera was then inserted and the abdomen inspected. It did appear that the trocar during entry entered into omentum near the lesser sac and did cause some bleeding. The additional 8 mm left upper quadrant robotic trocar was then placed under direct visualization as well as two right mid and lateral abdominal 8 mm robotic trocars under direct visualization. The area of the omentum was inspected and there was a blood clot; however, no active bleeding seen. The robot was then docked. A ProGrasp was placed on arm #3, a Cadiere on arm #2 and a hook monopolar cautery in arm #1. The surgeon was then transferred to the console. The gallbladder was grasped and lifted cephalad; however, it did appear that there was blood in this area that was fresh as well as blood above the liver and therefore it was decided to undock the robot and further explore this area. The robot was then undocked and the surgeon scrubbed back in. An educational assistant grasped the fundus of the gallbladder via the lateral right-sided port and lifted it above the liver. The right upper quadrant was then inspected and irrigated. There was an area of omentum that appeared to be bleeding, which was controlled with Surgicel and pressure. Multiple Ray-Tecs were placed into the abdomen and pressure held for greater than 15 minutes. The area in the lesser sac where the omentum was entered was also examined and there was a large blood clot here; however, no active bleeding. Also, a hematoma was seen in the lesser sac that was not expanding. The right upper quadrant was once again irrigated and the irrigant was returning clear. There was no evidence of active bleeding. Therefore, the robot was redocked in a similar fashion as described previously and the surgeon once again moved to the console. The fundus of the gallbladder was grasped and lifted cephalad and the infundibulum grasped and retracted laterally. The cystic duct and artery were then carefully skeletonized and the lateral and medial peritoneal attachments to the gallbladder wall were taken down with hook electrocautery. Once the cystic duct and artery were the only two structures seen entering the gallbladder and the critical view was obtained, two clips were placed on the proximal aspect of the cystic duct and 1 distally and 1 on the cystic artery proximally. The cystic duct was transected in between the clips using EndoShears by the educational assistant and the cystic artery was transected distal to the clip using hook electrocautery. The gallbladder was then dissected off the liver bed using hook electrocautery and placed in the right upper quadrant. The gallbladder fossa was examined and there was no bleeding from the liver bed. The clips were visualized and intact and there was no bleeding or bile leakage from this area. I then reinspected the right upper quadrant. Arm #1 was undocked and the educational assistant performed irrigation and suctioning. The right upper quadrant was visualized and the Ray-Tecs carefully and slowly removed. The area was irrigated and no active bleeding was seen. The omentum was grasped and retracted cephalad and the transverse colon was intact. There was no bleeding here. The area of the lesser sac with the hematoma was visualized and the hematoma was stable and not expanding. There was no pulsatile bleeding. The stomach and duodenum were visualized and did not show any evidence of injury. There was no bile leakage or spillage of intestinal contents. An OG tube was placed by anesthesia at the start of the case and there was no output seen. The right upper quadrant was filled with fluid and there was no air bubble seen. The distal stomach and duodenum were seen peristalsing. Upon inspection, the falciform ligament did have a tear in it and the remainder of the falciform ligament was ligated and divided with electrocautery in order to prevent possible internal hernia formation. The robot was then undocked and the surgeon scrubbed back in and the remainder of the case performed laparoscopically. All Ray-Tecs that were placed into the abdomen were removed. Gallbladder was placed into an EndoCatch bag and removed via the 12 mm port. The liver bed and right upper quadrant were then once again irrigated until the irrigant returned clear. The Surgicel was left intact. Two additional Surgicel packing were placed into the right upper quadrant at the prior site of bleeding. Navya powder was sprayed in the gallbladder fossa and a 19-Cambodian Miles drain was brought out through the right lateral abdominal port and placed into the gallbladder fossa. The drain was sutured into place using a 3-0 nylon drain stitch. The 12 mm port fascia was then closed using an 0 Vicryl interrupted stitch using the Meek-Tyler device. The remainder of the ports were then removed under direct visualization and the abdomen desufflated. The skin incisions were once again infiltrated with local anesthetic and closed with 4-0 Monocryl subcuticular stitches and skin glue. A Biopatch and a 4 x 4 gauze was applied around the drain and secured with Tegaderm. The drain was hooked to bulb suction in the usual fashion. The patient remained hemodynamically stable throughout the case. At the end of the case, all sponge, instrument, sharp counts were correct x 2. She was awoken from anesthesia, extubated, and taken to PACU in stable condition. [facility]# [id number] SHAD/CANDELARIA HINSON
--- NOTE | 2019-02-19 17:29 | XRay Report ---
PROCEDURE: XR CHEST 1V AP TECHNIQUE: Chest radiograph single view. HISTORY: COPD; SOB COMPARISONS: Chest x-ray November 01, 2017 . FINDINGS: Heart: Cardiomegaly, stable. Bipolar pacemaker stable.. Mediastinum/Vessels: Trachea midline. Atherosclerotic calcification and tortuosity aorta is stable. Lungs/Pleural space: No pneumothorax. No sizable effusion. Interstitial prominence and left base air space disease stable. Bony thorax: No acute osseous abnormality. Generalized osteopenia Contrast in the stomach. IMPRESSION: No significant interval change. This document is electronically signed by Boom Tenorio MD., Feb 19 2019 05:27:25 PM ET
[2019-02-19] MEDS: CLARITIN PO SCH (17:45)
[2019-02-19] MEDS: LYRICA PO SCH (17:46)
[2019-02-19] MEDS: FLONASE NS SCH (17:46)
[2019-02-19] MEDS: PROTONIX IV SCH (17:47)
[2019-02-19] MEDS: APRESOLINE PO SCH ×2 (17:48→21:20)
[2019-02-19] MEDS: ZOFRAN IV PRN (17:49)
[2019-02-19] MEDS: LOPRESSOR PO SCH (21:20)
[2019-02-19] MEDS: CATAPRES PO SCH (21:20)
[2019-02-20] MEDS: MORPHINE IV PRN ×2 (01:00→08:16)
[2019-02-20] MEDS: TYLENOL PO PRN (04:22)
[2019-02-20] MEDS: DILAUDID IV PRN ×2 (04:23→10:12)
[2019-02-20 05:20] LABS: Hematocrit 39.1 % (30.3-42.9); Hemoglobin 12.5 gm/dl (10.1-14.3); Mean Corpuscular HGB Conc 32 % (30-34); Mean Corpuscular Volume 102 fl (79-97); Red Blood Count 3.83 M/mm3 (3.65-5.03); Red Cell Distribution Width 16.9 % (13.2-15.2)
[2019-02-20 05:22] LABS: Platelet Count 90 K/mm3 (140-440)
[2019-02-20] MEDS: APRESOLINE PO SCH ×3 (06:50→22:12)
[2019-02-20] MEDS: PROVENTIL IH SCH ×4 (09:19→20:40)
[2019-02-20] MEDS: PROTONIX IV SCH (10:12)
[2019-02-20] MEDS: LYRICA PO SCH (10:12)
[2019-02-20] MEDS: CATAPRES PO SCH ×3 (10:12→22:14)
[2019-02-20] MEDS: CLARITIN PO SCH (10:12)
[2019-02-20] MEDS: FLONASE NS SCH (10:13)
[2019-02-20] MEDS: SODIUM CHLORIDE FLUSH SYRINGE 10 ML IV SCH (10:13)
[2019-02-20] MEDS: LOPRESSOR PO SCH ×3 (10:13→22:15)
--- NOTE | 2019-02-20 11:35 | Discharge Summary ---
Providers - Providers Date of Admission: 02/18/19 13:32 Attending physician: UMANG BOWSER DO 02/18/19 14:04 Consult to Physician [CONS] Routine Comment: Consulting Provider: KARINA CLARK Physician Instructions: Reason For Exam: ESRD on HD M/W/F 02/19/19 10:17 Consult to Physician [CONS] Routine Comment: known to you, post op comanagement Consulting Provider: JENA HARPER Physician Instructions: Reason For Exam: COPD, pulm HTN Primary care physician: SHAMEKA BERGER Core Measure Documentation - Palliative Care Palliative Care/ Comfort Measures: Not Applicable Exam - Constitutional Vitals: Temp Pulse Resp BP Pulse Ox 98.4 F 120 H 20 101/50 94 02/20/19 08:00 02/20/19 09:34 02/20/19 09:34 02/20/19 09:11 02/20/19 09:24 Plan Follow up with: SHAMEKA BERGER MD [Primary Care Provider] - 7 Days
[2019-02-20] MEDS ORDERED: NACL 0.9% 100 ML IV PRN (11:52)
--- NOTE | 2019-02-20 12:49 | Progress Note ---
Assessment and Plan Impression * End-stage renal disease on maintenance hemodialysis * s/p Cholecystecomy for chronic cholecystitis * Hx of complete heart block --s/p permanent pacemaker placement * Hypertension * irr, irr tachycarida * hypotension * Anemia secondary to ESRD * Secondary hyperparathyroidism Recommendations * Continue hemodialysis on MWF * cards to see for tachycardia * bp noted, no hd today * rec hospitalist consultation * UF as tolerated * Diet per surgery * Epogen with dialysis prn * No IV, BP of any puncture in her access arm Subjective Date of service: 02/20/19 Principal diagnosis: esrd Interval history: resting in bed Objective - Exam Narrative Exam: General appearance: well-developed, well-nourished EENT: ATNC Respiratory: Clear to Ascultation Heart: irregular, irr, tachycardia Gastrointestinal: Present: normal. Absent: tenderness, distended Integumentary: warm and dry Musculoskeletal: Present: other (no edema) Psychiatric: cooperative - Vital Signs Vital signs: Vital Signs - 12hr 02/20/19 02/20/19 02/20/19 01:00 01:11 01:21 Temperature Pulse Rate 102 H 102 H 103 H Pulse Rate [ Anterior Bilateral Throughout] Pulse Rate [ Apical] Respiratory 18 16 18 Rate Respiratory Rate [Anterior Bilateral Throughout] Blood Pressure 100/50 100/50 100/50 O2 Sat by Pulse 91 91 90 Oximetry 02/20/19 02/20/19 02/20/19 01:31 01:41 01:51 Temperature Pulse Rate 101 H 99 H 99 H Pulse Rate [ Anterior Bilateral Throughout] Pulse Rate [ Apical] Respiratory 15 14 15 Rate Respiratory Rate [Anterior Bilateral Throughout] Blood Pressure 100/50 100/50 100/50 O2 Sat by Pulse 91 91 92 Oximetry 02/20/19 02/20/19 02/20/19 02:00 02:11 02:21 Temperature Pulse Rate 100 H 103 H 103 H Pulse Rate [ Anterior Bilateral Throughout] Pulse Rate [ Apical] Respiratory 16 16 17 Rate Respiratory Rate [Anterior Bilateral Throughout] Blood Pressure 110/59 110/59 110/59 O2 Sat by Pulse 92 92 92 Oximetry 02/20/19 02/20/19 02/20/19 02:31 02:41 02:51 Temperature Pulse Rate 105 H Pulse Rate [ Anterior Bilateral Throughout] Pulse Rate [ Apical] Respiratory 17 16 17 Rate Respiratory Rate [Anterior Bilateral Throughout] Blood Pressure 110/59 110/59 110/59 O2 Sat by Pulse 92 93 92 Oximetry 02/20/19 02/20/19 02/20/19 03:00 03:01 03:11 Temperature Pulse Rate 104 H 104 H Pulse Rate [ Anterior Bilateral Throughout] Pulse Rate [ Apical] Respiratory 17 16 Rate Respiratory Rate [Anterior Bilateral Throughout] Blood Pressure 110/59 118/54 O2 Sat by Pulse 91 92 94 Oximetry 02/20/19 02/20/19 02/20/19 03:21 03:31 03:41 Temperature Pulse Rate 108 H 111 H Pulse Rate [ Anterior Bilateral Throughout] Pulse Rate [ Apical] Respiratory 18 19 19 Rate Respiratory Rate [Anterior Bilateral Throughout] Blood Pressure 118/54 118/54 118/54 O2 Sat by Pulse 93 91 90 Oximetry 02/20/19 02/20/19 02/20/19 03:51 04:00 04:10 Temperature 100.4 F H Pulse Rate 108 H 108 H Pulse Rate [ Anterior Bilateral Throughout] Pulse Rate [ Apical] Respiratory 19 19 Rate Respiratory Rate [Anterior Bilateral Throughout] Blood Pressure 118/54 119/56 O2 Sat by Pulse 90 90 Oximetry 02/20/19 02/20/19 02/20/19 04:11 04:21 04:22 Temperature Pulse Rate 107 H 108 H Pulse Rate [ Anterior Bilateral Throughout] Pulse Rate [ Apical] Respiratory 19 21 14 Rate Respiratory Rate [Anterior Bilateral Throughout] Blood Pressure 119/56 119/56 O2 Sat by Pulse 91 90 Oximetry 02/20/19 02/20/19 02/20/19 04:23 04:31 04:41 Temperature Pulse Rate 112 H 110 H Pulse Rate [ Anterior Bilateral Throughout] Pulse Rate [ Apical] Respiratory 14 17 28 H Rate Respiratory Rate [Anterior Bilateral Throughout] Blood Pressure 119/56 119/56 O2 Sat by Pulse 87 89 Oximetry 02/20/19 02/20/19 02/20/19 04:51 05:00 05:11 Temperature Pulse Rate 118 H 116 H 115 H Pulse Rate [ Anterior Bilateral Throughout] Pulse Rate [ 112 H Apical] Respiratory 25 H 16 16 Rate Respiratory Rate [Anterior Bilateral Throughout] Blood Pressure 119/56 98/53 98/53 O2 Sat by Pulse 89 88 89 Oximetry 02/20/19 02/20/19 02/20/19 05:21 05:31 05:41 Temperature Pulse Rate 114 H 118 H 112 H Pulse Rate [ Anterior Bilateral Throughout] Pulse Rate [ Apical] Respiratory 15 16 15 Rate Respiratory Rate [Anterior Bilateral Throughout] Blood Pressure 98/53 98/53 98/53 O2 Sat by Pulse 89 90 91 Oximetry 02/20/19 02/20/19 02/20/19 05:51 06:01 06:11 Temperature Pulse Rate 115 H 114 H Pulse Rate [ Anterior Bilateral Throughout] Pulse Rate [ Apical] Respiratory 14 14 14 Rate Respiratory Rate [Anterior Bilateral Throughout] Blood Pressure 98/53 99/46 99/46 O2 Sat by Pulse 90 91 91 Oximetry 02/20/19 02/20/19 02/20/19 06:21 06:31 06:41 Temperature Pulse Rate 112 H 111 H Pulse Rate [ Anterior Bilateral Throughout] Pulse Rate [ Apical] Respiratory 13 14 12 Rate Respiratory Rate [Anterior Bilateral Throughout] Blood Pressure 99/46 99/46 99/46 O2 Sat by Pulse 91 91 91 Oximetry 02/20/19 02/20/19 02/20/19 06:50 06:51 07:00 Temperature Pulse Rate 115 H 119 H 115 H Pulse Rate [ Anterior Bilateral Throughout] Pulse Rate [ Apical] Respiratory 19 17 Rate Respiratory Rate [Anterior Bilateral Throughout] Blood Pressure 99/46 99/46 110/54 O2 Sat by Pulse 92 90 Oximetry 02/20/19 02/20/19 02/20/19 07:11 07:21 07:31 Temperature Pulse Rate 116 H Pulse Rate [ Anterior Bilateral Throughout] Pulse Rate [ Apical] Respiratory 14 18 16 Rate Respiratory Rate [Anterior Bilateral Throughout] Blood Pressure 110/54 110/54 110/54 O2 Sat by Pulse 90 89 90 Oximetry 02/20/19 02/20/19 02/20/19 07:41 07:51 08:00 Temperature 98.4 F Pulse Rate 117 H 121 H 122 H Pulse Rate [ Anterior Bilateral Throughout] Pulse Rate [ Apical] Respiratory 16 17 16 Rate Respiratory Rate [Anterior Bilateral Throughout] Blood Pressure 110/54 110/54 101/48 O2 Sat by Pulse 89 90 90 Oximetry 02/20/19 02/20/19 02/20/19 08:11 08:21 08:31 Temperature Pulse Rate 126 H 124 H 125 H Pulse Rate [ Anterior Bilateral Throughout] Pulse Rate [ Apical] Respiratory 20 16 21 Rate Respiratory Rate [Anterior Bilateral Throughout] Blood Pressure 101/48 101/48 101/48 O2 Sat by Pulse 92 91 92 Oximetry 02/20/19 02/20/19 02/20/19 08:40 08:51 09:00 Temperature Pulse Rate 121 H 128 H 124 H Pulse Rate [ Anterior Bilateral Throughout] Pulse Rate [ Apical] Respiratory 17 20 16 Rate Respiratory Rate [Anterior Bilateral Throughout] Blood Pressure 92/46 92/46 101/50 O2 Sat by Pulse 92 91 93 Oximetry 02/20/19 02/20/19 02/20/19 09:11 09:20 09:24 Temperature Pulse Rate 138 H Pulse Rate [ 126 H Anterior Bilateral Throughout] Pulse Rate [ Apical] Respiratory 17 Rate Respiratory 18 Rate [Anterior Bilateral Throughout] Blood Pressure 101/50 O2 Sat by Pulse 92 94 Oximetry 02/20/19 02/20/19 02/20/19 09:34 11:45 11:49 Temperature 98.2 F 98.3 F Pulse Rate Pulse Rate [ 120 H Anterior Bilateral Throughout] Pulse Rate [ Apical] Respiratory Rate Respiratory 20 Rate [Anterior Bilateral Throughout] Blood Pressure O2 Sat by Pulse Oximetry 02/20/19 12:00 Temperature 98.3 F Pulse Rate Pulse Rate [ Anterior Bilateral Throughout] Pulse Rate [ Apical] Respiratory Rate Respiratory Rate [Anterior Bilateral Throughout] Blood Pressure O2 Sat by Pulse Oximetry - Lab 02/20/19 03:22 02/19/19 07:53 Most recent lab results Calcium 8.7 mg/dL (8.4-10.2) 02/19/19 07:53 Medications & Allergies - Medications Allergies/Adverse Reactions: Allergies heparin Allergy (Intermediate, Verified 02/17/19 13:44) Itching lisinopril Adverse Reaction (Mild, Verified 02/17/19 13:44) COUGH Home Medications: Home Medications Medication Instructions Recorded Confirmed Last Taken Type Sertraline [Zoloft] 1 tab PO DAILY 02/22/16 02/18/19 02/17/19 21:00 History ALBUTEROL NEB's [Proventil 0.083% 2.5 mg IH TID PRN #120 nebu 09/25/17 02/18/19 02/18/19 07:55 Rx NEBS] Fluticasone [Flonase] 1 spray NS QDAY #1 bottle 09/25/17 02/18/19 02/17/19 09:00 Rx Metoprolol [Lopressor TAB] 50 mg PO BID #60 tablet 09/25/17 02/18/19 02/16/19 09:00 Rx amLODIPine [Norvasc] 10 mg PO QDAY #30 tablet 09/25/17 02/18/19 02/16/19 09:00 Rx NIFEdipine [Nifedipine ER] 90 mg PO DAILY 10/28/17 02/18/19 02/16/19 09:00 History hydrALAZINE [Apresoline TAB] 25 mg PO TID 10/28/17 02/18/19 02/16/19 09:00 History ALBUTEROL Inhaler (OR & NICU) 2 puff IH QID PRN 02/17/19 02/18/19 02/17/19 09:00 History [Proair] AtorvaSTATin [Lipitor] 20 mg PO QHS 02/17/19 02/18/19 02/17/19 21:00 History Carvedilol [Coreg] 12.5 mg PO BID 02/17/19 02/18/19 02/17/19 21:00 History Dexlansoprazole [Dexilant] 60 mg PO QDAY 02/17/19 02/18/19 02/16/19 09:00 History Fluticasone (Nf) [Flovent 220 2 puff IH BID 02/17/19 02/18/19 02/17/19 09:00 History MCG/PUFF HFA] Loratadine [Claritin] 10 mg PO DAILY 02/17/19 02/18/19 02/17/19 10:00 History Pregabalin [Lyrica] 50 mg PO DAILY 02/17/19 02/17/19 Unknown History Tadalafil [Cialis] 20 mg PO BID 02/17/19 02/18/19 Unknown History Zolpidem [Ambien] 10 mg PO QHS 02/17/19 02/18/19 02/17/19 21:00 History cloNIDine [Catapres] 0.1 mg PO BID 02/17/19 02/17/19 Unknown History hydrOXYzine HCL [Atarax] 25 mg PO Q6HR PRN 02/17/19 02/18/19 02/17/19 12:00 History Active Medications: Generic Name Dose Route Start Last Admin Trade Name Freq PRN Reason Stop Dose Admin Acetaminophen 650 mg 02/18/19 13:32 02/20/19 04:22 Tylenol PO 650 mg Q4H PRN Administration Pain MILD(1-3)/Fever >100.5/TURNER Albumin Human 25 gm 02/19/19 10:10 Alburx 25% (Albumin) IV NANNETTE PRN Hypotension Albuterol 2.5 mg 02/19/19 10:15 02/20/19 09:19 Proventil IH 2.5 mg Q8HRT CATHY Administration Atorvastatin Calcium 20 mg 02/19/19 22:00 02/19/19 21:08 Lipitor PO 20 mg QHS CATHY Administration Clonidine HCl 0.1 mg 02/19/19 22:00 02/20/19 12:02 Catapres PO Not Given Q12HR CATHY Fluticasone Propionate 50 mcg 02/19/19 12:00 02/20/19 10:13 Flonase NS 50 mcg DAILY CATHY Administration Hydralazine HCl 25 mg 02/19/19 14:00 02/20/19 06:50 Apresoline PO Not Given Q8HR CATHY Hydromorphone HCl 0.25 mg 02/18/19 15:18 02/18/19 15:30 Dilaudid IV 0.25 mg Q10MIN PRN Administration Pain, Moderate (4-6) Hydromorphone HCl 0.2 mg 02/18/19 21:43 02/20/19 10:12 Dilaudid IV 0.2 mg Q3H PRN Administration Pain , Severe (7-10) Sodium Chloride 1,000 mls @ 75 mls/hr 02/18/19 08:00 02/19/19 03:13 Nacl 0.9% 1000 Ml IV 42 mls/hr DIRECT CATHY Administration Sodium Chloride 100 mls @ 999 mls/hr 02/19/19 10:10 Nacl 0.9% IV NANNETTE PRN Hypotension Sodium Chloride 100 mls @ 999 mls/hr 02/20/19 11:52 Nacl 0.9% IV NANNETTE PRN Hypotension Ketorolac Tromethamine 30 mg 02/18/19 17:17 02/18/19 17:35 Toradol IV 02/23/19 17:16 30 mg ONCE PRN Administration Pain , Severe (7-10) Loratadine 10 mg 02/19/19 12:00 02/20/19 10:12 Claritin PO 10 mg QDAY CATHY Administration Metoprolol Tartrate 50 mg 02/19/19 22:00 02/20/19 12:03 Lopressor PO Not Given BID CATHY Morphine Sulfate 2 mg 02/18/19 13:32 02/20/19 08:16 Morphine IV 2 mg Q4H PRN Administration Pain, Moderate (4-6) Naloxone HCl 0.1 mg 02/18/19 13:32 Narcan 0.4 Mg/1 Ml IV Q2MIN PRN Res Rate </= 8 or 02 SAT < 92% Ondansetron HCl 4 mg 02/18/19 13:32 02/19/19 21:10 Zofran IV 4 mg Q8H PRN Administration Nausea And Vomiting Ondansetron HCl 4 mg 02/18/19 13:34 02/19/19 17:49 Zofran IV 4 mg Q6H PRN Administration Nausea And Vomiting Pantoprazole Sodium 40 mg 02/19/19 12:00 02/20/19 10:12 Protonix IV 40 mg QDAY CATHY Administration Pregabalin 50 mg 02/19/19 12:00 02/20/19 10:12 Lyrica PO 50 mg QDAY CATHY Administration Sodium Chloride 10 ml 02/18/19 22:00 02/20/19 10:13 Sodium Chloride Flush Syringe 10 Ml IV 10 ml BID CATHY Administration Sodium Chloride 10 ml 02/18/19 13:32 Sodium Chloride Flush Syringe 10 Ml IV PRN PRN LINE FLUSH
[2019-02-20] MEDS ORDERED: NACL 0.9% 500 ML 500 ML IV ONE ×2 (13:00→15:03)
--- NOTE | 2019-02-20 13:11 | Progress Note ---
Assessment and Plan 58 yo F s/p robotic cholecystectomy, POD 2 Hx of Heart block s/p pacemaker, COPD, ESRD on HD, pulmonary HTN Plan: Patient with hypotension and tachycardia today. She has missed several doses of Bblocker due to low BP and this may be contributing to tachycardia. 1. renal diet 2. prn pain control - will switch to PO and discontinue IV meds which may be contributing to hypotension 3. EDIN drain - minimal output, now serous - will remove as it is causing pain 4. HD yesterday, nephro recs appreciated - agree with cards and hospitalist c/s 5. pulm consulted - recs appreciated 6. resume home medications 7. IS/pulm toilet 8. small IV fluid bolus 9. Hb stable, WBC normal - labs ordered in am per nephro 10. will change status to admission as will not discharge until tachycardia and hypotension improve Plan discussed with patient and sister. Thank you, please call with questions. Subjective Date of service: 02/20/19 Narrative: Pt seen and examined. No acute complaints. States she hasn't had a BM for 3 days. No f/c, cp, sob, vomiting. Intermittent nausea but tolerating diet. c/o pain near the EDIN site only. Has has low BP and tachycardia for most of the am, notified by nursing around 12pm of this. Pt denies dizziness or lightheadedness. Objective Vital Signs - 12hr 02/20/19 02/20/19 02/20/19 01:11 01:21 01:31 Temperature Pulse Rate 102 H 103 H 101 H Pulse Rate [ Anterior Bilateral Throughout] Pulse Rate [ Apical] Respiratory 16 18 15 Rate Respiratory Rate [Anterior Bilateral Throughout] Blood Pressure 100/50 100/50 100/50 O2 Sat by Pulse 91 90 91 Oximetry 02/20/19 02/20/19 02/20/19 01:41 01:51 02:00 Temperature Pulse Rate 99 H 99 H 100 H Pulse Rate [ Anterior Bilateral Throughout] Pulse Rate [ Apical] Respiratory 14 15 16 Rate Respiratory Rate [Anterior Bilateral Throughout] Blood Pressure 100/50 100/50 110/59 O2 Sat by Pulse 91 92 92 Oximetry 02/20/19 02/20/19 02/20/19 02:11 02:21 02:31 Temperature Pulse Rate 103 H 103 H 105 H Pulse Rate [ Anterior Bilateral Throughout] Pulse Rate [ Apical] Respiratory 16 17 17 Rate Respiratory Rate [Anterior Bilateral Throughout] Blood Pressure 110/59 110/59 110/59 O2 Sat by Pulse 92 92 92 Oximetry 02/20/19 02/20/19 02/20/19 02:41 02:51 03:00 Temperature Pulse Rate 104 H Pulse Rate [ Anterior Bilateral Throughout] Pulse Rate [ Apical] Respiratory 16 17 17 Rate Respiratory Rate [Anterior Bilateral Throughout] Blood Pressure 110/59 110/59 110/59 O2 Sat by Pulse 93 92 91 Oximetry 02/20/19 02/20/19 02/20/19 03:01 03:11 03:21 Temperature Pulse Rate 104 H 108 H Pulse Rate [ Anterior Bilateral Throughout] Pulse Rate [ Apical] Respiratory 16 18 Rate Respiratory Rate [Anterior Bilateral Throughout] Blood Pressure 118/54 118/54 O2 Sat by Pulse 92 94 93 Oximetry 02/20/19 02/20/19 02/20/19 03:31 03:41 03:51 Temperature Pulse Rate 111 H 108 H Pulse Rate [ Anterior Bilateral Throughout] Pulse Rate [ Apical] Respiratory 19 19 19 Rate Respiratory Rate [Anterior Bilateral Throughout] Blood Pressure 118/54 118/54 118/54 O2 Sat by Pulse 91 90 90 Oximetry 02/20/19 02/20/19 02/20/19 04:00 04:10 04:11 Temperature 100.4 F H Pulse Rate 108 H 107 H Pulse Rate [ Anterior Bilateral Throughout] Pulse Rate [ Apical] Respiratory 19 19 Rate Respiratory Rate [Anterior Bilateral Throughout] Blood Pressure 119/56 119/56 O2 Sat by Pulse 90 91 Oximetry 02/20/19 02/20/19 02/20/19 04:21 04:22 04:23 Temperature Pulse Rate 108 H Pulse Rate [ Anterior Bilateral Throughout] Pulse Rate [ Apical] Respiratory 21 14 14 Rate Respiratory Rate [Anterior Bilateral Throughout] Blood Pressure 119/56 O2 Sat by Pulse 90 Oximetry 02/20/19 02/20/19 02/20/19 04:31 04:41 04:51 Temperature Pulse Rate 112 H 110 H 118 H Pulse Rate [ Anterior Bilateral Throughout] Pulse Rate [ Apical] Respiratory 17 28 H 25 H Rate Respiratory Rate [Anterior Bilateral Throughout] Blood Pressure 119/56 119/56 119/56 O2 Sat by Pulse 87 89 89 Oximetry 02/20/19 02/20/19 02/20/19 05:00 05:11 05:21 Temperature Pulse Rate 116 H 115 H 114 H Pulse Rate [ Anterior Bilateral Throughout] Pulse Rate [ 112 H Apical] Respiratory 16 16 15 Rate Respiratory Rate [Anterior Bilateral Throughout] Blood Pressure 98/53 98/53 98/53 O2 Sat by Pulse 88 89 89 Oximetry 02/20/19 02/20/19 02/20/19 05:31 05:41 05:51 Temperature Pulse Rate 118 H 112 H 115 H Pulse Rate [ Anterior Bilateral Throughout] Pulse Rate [ Apical] Respiratory 16 15 14 Rate Respiratory Rate [Anterior Bilateral Throughout] Blood Pressure 98/53 98/53 98/53 O2 Sat by Pulse 90 91 90 Oximetry 02/20/19 02/20/19 02/20/19 06:01 06:11 06:21 Temperature Pulse Rate 114 H Pulse Rate [ Anterior Bilateral Throughout] Pulse Rate [ Apical] Respiratory 14 14 13 Rate Respiratory Rate [Anterior Bilateral Throughout] Blood Pressure 99/46 99/46 99/46 O2 Sat by Pulse 91 91 91 Oximetry 02/20/19 02/20/19 02/20/19 06:31 06:41 06:50 Temperature Pulse Rate 112 H 111 H 115 H Pulse Rate [ Anterior Bilateral Throughout] Pulse Rate [ Apical] Respiratory 14 12 Rate Respiratory Rate [Anterior Bilateral Throughout] Blood Pressure 99/46 99/46 99/46 O2 Sat by Pulse 91 91 Oximetry 02/20/19 02/20/19 02/20/19 06:51 07:00 07:11 Temperature Pulse Rate 119 H 115 H 116 H Pulse Rate [ Anterior Bilateral Throughout] Pulse Rate [ Apical] Respiratory 19 17 14 Rate Respiratory Rate [Anterior Bilateral Throughout] Blood Pressure 99/46 110/54 110/54 O2 Sat by Pulse 92 90 90 Oximetry 02/20/19 02/20/19 02/20/19 07:21 07:31 07:41 Temperature Pulse Rate 117 H Pulse Rate [ Anterior Bilateral Throughout] Pulse Rate [ Apical] Respiratory 18 16 16 Rate Respiratory Rate [Anterior Bilateral Throughout] Blood Pressure 110/54 110/54 110/54 O2 Sat by Pulse 89 90 89 Oximetry 02/20/19 02/20/19 02/20/19 07:51 08:00 08:11 Temperature 98.4 F Pulse Rate 121 H 122 H 126 H Pulse Rate [ Anterior Bilateral Throughout] Pulse Rate [ Apical] Respiratory 17 16 20 Rate Respiratory Rate [Anterior Bilateral Throughout] Blood Pressure 110/54 101/48 101/48 O2 Sat by Pulse 90 90 92 Oximetry 02/20/19 02/20/19 02/20/19 08:21 08:31 08:40 Temperature Pulse Rate 124 H 125 H 121 H Pulse Rate [ Anterior Bilateral Throughout] Pulse Rate [ Apical] Respiratory 16 21 17 Rate Respiratory Rate [Anterior Bilateral Throughout] Blood Pressure 101/48 101/48 92/46 O2 Sat by Pulse 91 92 92 Oximetry 02/20/19 02/20/19 02/20/19 08:51 09:00 09:11 Temperature Pulse Rate 128 H 124 H 138 H Pulse Rate [ Anterior Bilateral Throughout] Pulse Rate [ Apical] Respiratory 20 16 17 Rate Respiratory Rate [Anterior Bilateral Throughout] Blood Pressure 92/46 101/50 101/50 O2 Sat by Pulse 91 93 92 Oximetry 02/20/19 02/20/19 02/20/19 09:20 09:24 09:34 Temperature Pulse Rate Pulse Rate [ 126 H 120 H Anterior Bilateral Throughout] Pulse Rate [ Apical] Respiratory Rate Respiratory 18 20 Rate [Anterior Bilateral Throughout] Blood Pressure O2 Sat by Pulse 94 Oximetry 02/20/19 02/20/19 02/20/19 11:45 11:49 12:00 Temperature 98.2 F 98.3 F 98.3 F Pulse Rate Pulse Rate [ Anterior Bilateral Throughout] Pulse Rate [ Apical] Respiratory Rate Respiratory Rate [Anterior Bilateral Throughout] Blood Pressure O2 Sat by Pulse Oximetry - General physical appearance Narrative Exam: Gen: AAOx3. NAD CV: S1, s2+ Resp: even and unlabored Abd: soft, ND. EDIN drain minimal output, now serous in tubing. +TTP near drain site. All incisions c/d/i and NT. no r/r/g Ext: no c/c/e - Labs 02/20/19 03:22 02/19/19 07:53
[2019-02-20] MEDS ORDERED: LOPRESSOR IV STA (13:26)
[2019-02-20] MEDS: ZOLOFT PO SCH (13:44)
[2019-02-20] MEDS: NORCO 5/325 PO PRN ×2 (13:44→22:27)
[2019-02-20] MEDS ORDERED: INTROPIN DRIP 800 MG/D5W 250 ML 800 MG/250 ML BAG IV ONE (14:19)
[2019-02-20] MEDS ORDERED: ALBURX 25% (ALBUMIN) IV ONE ×2 (14:27→15:00)
--- NOTE | 2019-02-20 14:28 | Consultation ---
Past History Past Medical History: COPD, ESRD, hypertension, other (hx of complete heart block s/p pacemaker, pulmonary hypertension) Past Surgical History: Other (Pacemaker implantation) Social history: no significant social history Family history: no significant family history Medications and Allergies Allergies Allergy/AdvReac Type Severity Reaction Status Date / Time heparin Allergy Intermediate Itching Verified 02/17/19 13:44 lisinopril AdvReac Mild COUGH Verified 02/17/19 13:44 Home Medications Medication Instructions Recorded Confirmed Last Taken Type Sertraline [Zoloft] 1 tab PO DAILY 02/22/16 02/18/19 02/17/19 21:00 History ALBUTEROL NEB's [Proventil 0.083% 2.5 mg IH TID PRN #120 nebu 09/25/17 02/18/19 02/18/19 07:55 Rx NEBS] Fluticasone [Flonase] 1 spray NS QDAY #1 bottle 09/25/17 02/18/19 02/17/19 09:00 Rx Metoprolol [Lopressor TAB] 50 mg PO BID #60 tablet 09/25/17 02/18/19 02/16/19 09:00 Rx amLODIPine [Norvasc] 10 mg PO QDAY #30 tablet 09/25/17 02/18/19 02/16/19 09:00 Rx NIFEdipine [Nifedipine ER] 90 mg PO DAILY 10/28/17 02/18/19 02/16/19 09:00 History hydrALAZINE [Apresoline TAB] 25 mg PO TID 10/28/17 02/18/19 02/16/19 09:00 History ALBUTEROL Inhaler (OR & NICU) 2 puff IH QID PRN 02/17/19 02/18/19 02/17/19 09:00 History [Proair] AtorvaSTATin [Lipitor] 20 mg PO QHS 02/17/19 02/18/19 02/17/19 21:00 History Carvedilol [Coreg] 12.5 mg PO BID 02/17/19 02/18/19 02/17/19 21:00 History Dexlansoprazole [Dexilant] 60 mg PO QDAY 02/17/19 02/18/19 02/16/19 09:00 History Fluticasone (Nf) [Flovent 220 2 puff IH BID 02/17/19 02/18/19 02/17/19 09:00 History MCG/PUFF HFA] Loratadine [Claritin] 10 mg PO DAILY 02/17/19 02/18/19 02/17/19 10:00 History Pregabalin [Lyrica] 50 mg PO DAILY 02/17/19 02/17/19 Unknown History Tadalafil [Cialis] 20 mg PO BID 02/17/19 02/18/19 Unknown History Zolpidem [Ambien] 10 mg PO QHS 02/17/19 02/18/19 02/17/19 21:00 History cloNIDine [Catapres] 0.1 mg PO BID 02/17/19 02/17/19 Unknown History hydrOXYzine HCL [Atarax] 25 mg PO Q6HR PRN 02/17/19 02/18/19 02/17/19 12:00 History Active Meds: Active Medications Acetaminophen (Tylenol) 650 mg PO Q4H PRN PRN Reason: Pain MILD(1-3)/Fever >100.5/TURNER Last Admin: 02/20/19 04:22 Dose: 650 mg Documented by: Acetaminophen/Hydrocodone Bitart ([place] 5/325) 1 each PO Q6H PRN PRN Reason: Pain, Moderate (4-6) Last Admin: 02/20/19 13:44 Dose: 1 each Documented by: Albumin Human (Alburx 25% (Albumin)) 25 gm IV NANNETTE PRN PRN Reason: Hypotension Albumin Human ([place] 25% (Albumin)) 50 gm IV ONCE ONE Stop: 02/20/19 14:28 Albuterol (Proventil) 2.5 mg IH Q8HRT [facility] Last Admin: 02/20/19 09:19 Dose: 2.5 mg Documented by: Atorvastatin Calcium (Lipitor) 20 mg PO QHS [facility] Last Admin: 02/19/19 21:08 Dose: 20 mg Documented by: Clonidine HCl (Catapres) 0.1 mg PO Q12HR [facility] Last Admin: 02/20/19 12:02 Dose: Not Given Documented by: Docusate Sodium (Colace) 100 mg PO BID [facility] Fluticasone Propionate (Flonase) 50 mcg NS DAILY [facility] Last Admin: 02/20/19 10:13 Dose: 50 mcg Documented by: Hydralazine HCl (Apresoline) 25 mg PO Q8HR [facility] Last Admin: 02/20/19 13:44 Dose: 25 mg Documented by: Sodium Chloride (Nacl 0.9% 1000 Ml) 1,000 mls @ 75 mls/hr IV DIRECT [facility] Last Admin: 02/19/19 03:13 Dose: 42 mls/hr Documented by: Sodium Chloride (Nacl 0.9%) 100 mls @ 999 mls/hr IV NANNETTE PRN PRN Reason: Hypotension Sodium Chloride (Nacl 0.9% 500 Ml) 500 mls @ 999 mls/hr IV ONCE ONE Stop: 02/20/19 15:33 Ketorolac Tromethamine (Toradol) 30 mg IV ONCE PRN PRN Reason: Pain , Severe (7-10) Stop: 02/23/19 17:16 Last Admin: 02/18/19 17:35 Dose: 30 mg Documented by: Loratadine (Claritin) 10 mg PO QDAY [facility] Last Admin: 02/20/19 10:12 Dose: 10 mg Documented by: Metoprolol Tartrate (Lopressor) 50 mg PO BID [facility] Last Admin: 02/20/19 12:03 Dose: Not Given Documented by: Naloxone HCl (Narcan 0.4 Mg/1 Ml) 0.1 mg IV Q2MIN PRN PRN Reason: Res Rate </= 8 or 02 SAT < 92% Ondansetron HCl (Zofran) 4 mg IV Q8H PRN PRN Reason: Nausea And Vomiting Last Admin: 02/19/19 21:10 Dose: 4 mg Documented by: Ondansetron HCl (Zofran) 4 mg IV Q6H PRN PRN Reason: Nausea And Vomiting Last Admin: 02/19/19 17:49 Dose: 4 mg Documented by: Pantoprazole Sodium (Protonix) 40 mg IV QDAY [facility] Last Admin: 02/20/19 10:12 Dose: 40 mg Documented by: Pregabalin (Lyrica) 50 mg PO QDAY [facility] Last Admin: 02/20/19 10:12 Dose: 50 mg Documented by: Sertraline HCl (Zoloft) 100 mg PO QDAY [facility] Last Admin: 02/20/19 13:44 Dose: 100 mg Documented by: Sevelamer Carbonate (Renvela) 800 mg PO [facility] Sodium Chloride (Sodium Chloride Flush Syringe 10 Ml) 10 ml IV BID [facility] Last Admin: 02/20/19 10:13 Dose: 10 ml Documented by: Sodium Chloride (Sodium Chloride Flush Syringe 10 Ml) 10 ml IV PRN PRN PRN Reason: LINE FLUSH Exam - Constitutional Vitals: Temp Pulse Resp BP Pulse Ox 98.3 F 120 H 20 101/50 94 02/20/19 12:00 02/20/19 09:34 02/20/19 09:34 02/20/19 09:11 02/20/19 09:24 Results - Labs CBC & Chem 7: 02/20/19 03:22 02/19/19 07:53 Labs: Abnormal lab results 02/20/19 Range/Units 03:22 MCV 102 H (79-97) fl MCH 33 H (28-32) pg RDW 16.9 H (13.2-15.2) % Plt Count 90 L (140-440) K/mm3
--- NOTE | 2019-02-20 14:34 | History and Physical Report ---
History of Present Illness Date of admission: 02/20/19 12:52 Chief complaint: Feeling sick History of present illness: 58 YO Female with HTN, ESRD on HD(M,W,F), COPD, Chronic Respiratory Failure on 3L Home oxygen, Diastolic CHF, Pulmonary HTN, SDH admitted for elective laproscopic cholecystectomy. Pt convalesced well postoperatively. Pt subsequently developed acute onset of Atrial Fib with RVR complicated by cardiac decompensation with hypotension and altered mental status as well as Acute Hypoxemic respiratory failure. Pt discharged from surgical service and admitted to hospital medicine service, and admitted to ICU and initiated on IV pressor support, supplemental oxygen, nebulizer therapy, and NIPPV as clinically indicated. . Cardiology team consulted and patient initiated on rate control therapy. No further history obtainable at time of exam and interview. Pt found to have ESRD, Encephalopathy, Atrial Fib with RVR, Acidosis. Pt initiated on bolus IVF resuscitation. Pt symptoms improved with supportive care. Past History Past Medical History: COPD, ESRD, hypertension, other (hx of complete heart block s/p pacemaker, pulmonary hypertension) Past Surgical History: Other (Pacemaker implantation) Social history: no significant social history Family history: no significant family history Medications and Allergies Allergies Allergy/AdvReac Type Severity Reaction Status Date / Time heparin Allergy Intermediate Itching Verified 02/17/19 13:44 lisinopril AdvReac Mild COUGH Verified 02/17/19 13:44 Home Medications Medication Instructions Recorded Confirmed Last Taken Type Sertraline [Zoloft] 1 tab PO DAILY 02/22/16 02/18/19 02/17/19 21:00 History ALBUTEROL NEB's [Proventil 0.083% 2.5 mg IH TID PRN #120 nebu 09/25/17 02/18/19 02/18/19 07:55 Rx NEBS] Fluticasone [Flonase] 1 spray NS QDAY #1 bottle 09/25/17 02/18/19 02/17/19 09:00 Rx Metoprolol [Lopressor TAB] 50 mg PO BID #60 tablet 09/25/17 02/18/19 02/16/19 09:00 Rx amLODIPine [Norvasc] 10 mg PO QDAY #30 tablet 09/25/17 02/18/19 02/16/19 09:00 Rx NIFEdipine [Nifedipine ER] 90 mg PO DAILY 01/02/18/19 02/16/19 09:00 History hydrALAZINE [Apresoline TAB] 25 mg PO TID 10/28/17 02/18/19 02/16/19 09:00 History ALBUTEROL Inhaler (OR & NICU) 2 puff IH QID PRN 02/17/19 02/18/19 02/17/19 09:00 History [Proair] AtorvaSTATin [Lipitor] 20 mg PO QHS 02/17/19 02/18/19 02/17/19 21:00 History Carvedilol [Coreg] 12.5 mg PO BID 02/17/19 02/18/19 02/17/19 21:00 History Dexlansoprazole [Dexilant] 60 mg PO QDAY 02/17/19 02/18/19 02/16/19 09:00 History Fluticasone (Nf) [Flovent 220 2 puff IH BID 02/17/19 02/18/19 02/17/19 09:00 History MCG/PUFF HFA] Loratadine [Claritin] 10 mg PO DAILY 02/17/19 02/18/19 02/17/19 10:00 History Pregabalin [Lyrica] 50 mg PO DAILY 02/17/19 02/17/19 Unknown History Tadalafil [Cialis] 20 mg PO BID 02/17/19 02/18/19 Unknown History Zolpidem [Ambien] 10 mg PO QHS 02/17/19 02/18/19 02/17/19 21:00 History cloNIDine [Catapres] 0.1 mg PO BID 02/17/19 02/17/19 Unknown History hydrOXYzine HCL [Atarax] 25 mg PO Q6HR PRN 02/17/19 02/18/19 02/17/19 12:00 History Active Meds: Active Medications Acetaminophen (Tylenol) 650 mg PO Q4H PRN PRN Reason: Pain MILD(1-3)/Fever >100.5/TURNER Last Admin: 02/20/19 04:22 Dose: 650 mg Documented by: Acetaminophen/Hydrocodone Bitart ([place] 5/325) 1 each PO Q6H PRN PRN Reason: Pain, Moderate (4-6) Last Admin: 02/20/19 13:44 Dose: 1 each Documented by: Albumin Human (Alburx 25% (Albumin)) 25 gm IV NANNETTE PRN PRN Reason: Hypotension Albuterol (Proventil) 2.5 mg IH Q8HRT [facility] Last Admin: 02/20/19 09:19 Dose: 2.5 mg Documented by: Atorvastatin Calcium (Lipitor) 20 mg PO QHS [facility] Last Admin: 02/19/19 21:08 Dose: 20 mg Documented by: Clonidine HCl (Catapres) 0.1 mg PO Q12HR [facility] Last Admin: 02/20/19 12:02 Dose: Not Given Documented by: Docusate Sodium (Colace) 100 mg PO BID [facility] Fluticasone Propionate (Flonase) 50 mcg NS DAILY [facility] Last Admin: 02/20/19 10:13 Dose: 50 mcg Documented by: Hydralazine HCl (Apresoline) 25 mg PO Q8HR [facility] Last Admin: 02/20/19 13:44 Dose: 25 mg Documented by: Sodium Chloride (Nacl 0.9% 1000 Ml) 1,000 mls @ 75 mls/hr IV DIRECT [facility] Last Admin: 02/19/19 03:13 Dose: 42 mls/hr Documented by: Sodium Chloride (Nacl 0.9%) 100 mls @ 999 mls/hr IV NANNETTE PRN PRN Reason: Hypotension Sodium Chloride (Nacl 0.9% 500 Ml) 500 mls @ 999 mls/hr IV ONCE ONE Stop: 02/20/19 15:33 Ketorolac Tromethamine (Toradol) 30 mg IV ONCE PRN PRN Reason: Pain , Severe (7-10) Stop: 02/23/19 17:16 Last Admin: 02/18/19 17:35 Dose: 30 mg Documented by: Loratadine (Claritin) 10 mg PO QDAY [facility] Last Admin: 02/20/19 10:12 Dose: 10 mg Documented by: Metoprolol Tartrate (Lopressor) 50 mg PO BID [facility] Last Admin: 02/20/19 12:03 Dose: Not Given Documented by: Naloxone HCl (Narcan 0.4 Mg/1 Ml) 0.1 mg IV Q2MIN PRN PRN Reason: Res Rate </= 8 or 02 SAT < 92% Ondansetron HCl (Zofran) 4 mg IV Q8H PRN PRN Reason: Nausea And Vomiting Last Admin: 02/19/19 21:10 Dose: 4 mg Documented by: Ondansetron HCl (Zofran) 4 mg IV Q6H PRN PRN Reason: Nausea And Vomiting Last Admin: 02/19/19 17:49 Dose: 4 mg Documented by: Pantoprazole Sodium (Protonix) 40 mg IV QDAY [facility] Last Admin: 02/20/19 10:12 Dose: 40 mg Documented by: Pregabalin (Lyrica) 50 mg PO QDAY [facility] Last Admin: 02/20/19 10:12 Dose: 50 mg Documented by: Sertraline HCl (Zoloft) 100 mg PO QDAY [facility] Last Admin: 02/20/19 13:44 Dose: 100 mg Documented by: Sevelamer Carbonate (Renvela) 800 mg PO [facility] Sodium Chloride (Sodium Chloride Flush Syringe 10 Ml) 10 ml IV BID [facility] Last Admin: 02/20/19 10:13 Dose: 10 ml Documented by: Sodium Chloride (Sodium Chloride Flush Syringe 10 Ml) 10 ml IV PRN PRN PRN Reason: LINE FLUSH Review of Systems ROS unobtainable: due to mental status Exam - Constitutional Vitals: Temp Pulse Resp BP Pulse Ox 98.3 F 120 H 20 101/50 94 02/20/19 12:00 02/20/19 09:34 02/20/19 09:34 02/20/19 09:11 02/20/19 09:24 General appearance: Present: severe distress - EENT Eyes: Present: PERRL ENT: hearing intact, clear oral mucosa - Neck Neck: Present: supple, normal ROM - Respiratory Respiratory: bilateral: diminished, wheezing - Cardiovascular Rhythm: irregularly irregular - Extremities Extremities: pulses symmetrical, No edema Peripheral Pulses: within normal limits - Abdominal General gastrointestinal: Present: soft, non-tender, non-distended, normal bowel sounds Female genitourinary: Present: normal - Integumentary Integumentary: Present: clear, warm, dry - Musculoskeletal Musculoskeletal: generalized weakness - Psychiatric Psychiatric: no appropriate mood/affect, no intact judgment & insight, no memory intact - Neurologic Neurologic: CNII-XII intact, moves all extremities, no gait normal Results - Labs CBC & Chem 7: 02/21/19 04:45 02/21/19 04:45 Labs: Abnormal lab results 02/20/19 Range/Units 03:22 MCV 102 H (79-97) fl MCH 33 H (28-32) pg RDW 16.9 H (13.2-15.2) % Plt Count 90 L (140-440) K/mm3 Assessment and Plan - Patient Problems (1) Acute respiratory failure with hypoxia Current Visit: Yes Status: Acute Plan to address problem: Pulmonary team consulted, supportive care, supplemental oxygen, nebulizer therapy, NIPPV as clinically indicated, pulse oximetry, chest x ray, The high probability of a clinically significant, sudden or life threatening deterioration of the [Cardiac, pulmonary, renal, neuro] system(s) required my full and direct attention, intervention and personal management. The aggregate critical care time was [65] minutes. This time is in addition to time spent performing reported procedures but includes the following: [x] Data Review and interpretation [x] Patient assessment and monitoring of vital signs [x] Documentation [x] Medication orders and management (2) Atrial fibrillation Current Visit: Yes Status: Acute Qualifiers: Atrial fibrillation type: persistent Qualified Code(s): I48.1 - Persistent atrial fibrillation Plan to address problem: Cardiology consulted, Pt initiated on rate control therapy, Echo, (3) Acidosis Current Visit: Yes Status: Acute Plan to address problem: dialysis as per renal team, repeat bmp, (4) ESRD (end stage renal disease) Current Visit: No Status: Chronic Plan to address problem: Nephrology consulted in ED, dialysis as per renal team. (5) HTN (hypertension) Current Visit: No Status: Chronic Qualifiers: Hypertension type: essential hypertension Plan to address problem: Pt currently hypotensive, hold antihypertensive therapy at this time. (6) DVT prophylaxis Current Visit: Yes Status: Acute Plan to address problem: SCD to BLE while in bed.
--- NOTE | 2019-02-20 14:49 | Progress Note ---
Assessment and Plan Patient S/P cholecystectomy. Patient was doing OK, Patients condition suddenly deteriorated. Patient become hypotensive, tachycardic and tachypnic. Patient given fluid bolus. Patients O2 saturation running in 60s. Placing the patient on BIPAP 16/6, rate 16, FIO2 50%. Patient starting on amiodarone. Transfering to ICU. - Patient Problems (1) Acute respiratory failure with hypoxia Current Visit: Yes Status: Acute Plan to address problem: Placing on BIPAP 16/6, rate 16, FIO2 50% ABGs on BIPAP. Albuterol/atrovent aerosol treatments q 6 hours. (2) Pulmonary hypertension Current Visit: No Status: Acute Plan to address problem: Patient on BIPAP with O2 supplementation. Planning to start on anticoagulation.Patient allergic to heparin. (3) ESRD (end stage renal disease) Current Visit: No Status: Chronic Plan to address problem: Management as per Nephrology. (4) Status post cholecystectomy Current Visit: Yes Status: Acute Plan to address problem: Management as per surgery. (5) Hypotension Current Visit: Yes Status: Acute Plan to address problem: Recommend I/V fluids. Recommend to Change dopamine to Levophed Subjective Date of service: 02/20/19 Principal diagnosis: esrd Interval history: Patient S/P cholecystectomy. Patient was doing OK, Patients condition suddenly deteriorated. Patient become hypotensive, tachycardic and tachypnic. Patient given fluid bolus. Patients O2 saturation running in 60s. Placing the patient on BIPAP 16/6, rate 16, FIO2 50%. Patient starting on amiodarone. Transfering to ICU. I spent direct critical care time of 50 minutes on this critically ill patient. Objective Vital Signs - 12hr 02/20/19 02/20/19 02/20/19 02:51 03:00 03:01 Temperature Pulse Rate 104 H Pulse Rate [ Anterior Bilateral Throughout] Pulse Rate [ Apical] Respiratory 17 17 Rate Respiratory Rate [Anterior Bilateral Throughout] Blood Pressure 110/59 110/59 O2 Sat by Pulse 92 91 92 Oximetry 02/20/19 02/20/19 02/20/19 03:11 03:21 03:31 Temperature Pulse Rate 104 H 108 H 111 H Pulse Rate [ Anterior Bilateral Throughout] Pulse Rate [ Apical] Respiratory 16 18 19 Rate Respiratory Rate [Anterior Bilateral Throughout] Blood Pressure 118/54 118/54 118/54 O2 Sat by Pulse 94 93 91 Oximetry 02/20/19 02/20/19 02/20/19 03:41 03:51 04:00 Temperature Pulse Rate 108 H 108 H Pulse Rate [ Anterior Bilateral Throughout] Pulse Rate [ Apical] Respiratory 19 19 19 Rate Respiratory Rate [Anterior Bilateral Throughout] Blood Pressure 118/54 118/54 119/56 O2 Sat by Pulse 90 90 90 Oximetry 02/20/19 02/20/19 02/20/19 04:10 04:11 04:21 Temperature 100.4 F H Pulse Rate 107 H 108 H Pulse Rate [ Anterior Bilateral Throughout] Pulse Rate [ Apical] Respiratory 19 21 Rate Respiratory Rate [Anterior Bilateral Throughout] Blood Pressure 119/56 119/56 O2 Sat by Pulse 91 90 Oximetry 02/20/19 02/20/19 02/20/19 04:22 04:23 04:31 Temperature Pulse Rate 112 H Pulse Rate [ Anterior Bilateral Throughout] Pulse Rate [ Apical] Respiratory 14 14 17 Rate Respiratory Rate [Anterior Bilateral Throughout] Blood Pressure 119/56 O2 Sat by Pulse 87 Oximetry 02/20/19 02/20/19 02/20/19 04:41 04:51 05:00 Temperature Pulse Rate 110 H 118 H 116 H Pulse Rate [ Anterior Bilateral Throughout] Pulse Rate [ 112 H Apical] Respiratory 28 H 25 H 16 Rate Respiratory Rate [Anterior Bilateral Throughout] Blood Pressure 119/56 119/56 98/53 O2 Sat by Pulse 89 89 88 Oximetry 02/20/19 02/20/19 02/20/19 05:11 05:21 05:31 Temperature Pulse Rate 115 H 114 H 118 H Pulse Rate [ Anterior Bilateral Throughout] Pulse Rate [ Apical] Respiratory 16 15 16 Rate Respiratory Rate [Anterior Bilateral Throughout] Blood Pressure 98/53 98/53 98/53 O2 Sat by Pulse 89 89 90 Oximetry 02/20/19 02/20/19 02/20/19 05:41 05:51 06:01 Temperature Pulse Rate 112 H 115 H 114 H Pulse Rate [ Anterior Bilateral Throughout] Pulse Rate [ Apical] Respiratory 15 14 14 Rate Respiratory Rate [Anterior Bilateral Throughout] Blood Pressure 98/53 98/53 99/46 O2 Sat by Pulse 91 90 91 Oximetry 02/20/19 02/20/19 02/20/19 06:11 06:21 06:31 Temperature Pulse Rate 112 H Pulse Rate [ Anterior Bilateral Throughout] Pulse Rate [ Apical] Respiratory 14 13 14 Rate Respiratory Rate [Anterior Bilateral Throughout] Blood Pressure 99/46 99/46 99/46 O2 Sat by Pulse 91 91 91 Oximetry 02/20/19 02/20/19 02/20/19 06:41 06:50 06:51 Temperature Pulse Rate 111 H 115 H 119 H Pulse Rate [ Anterior Bilateral Throughout] Pulse Rate [ Apical] Respiratory 12 19 Rate Respiratory Rate [Anterior Bilateral Throughout] Blood Pressure 99/46 99/46 99/46 O2 Sat by Pulse 91 92 Oximetry 02/20/19 02/20/19 02/20/19 07:00 07:11 07:21 Temperature Pulse Rate 115 H 116 H Pulse Rate [ Anterior Bilateral Throughout] Pulse Rate [ Apical] Respiratory 17 14 18 Rate Respiratory Rate [Anterior Bilateral Throughout] Blood Pressure 110/54 110/54 110/54 O2 Sat by Pulse 90 90 89 Oximetry 02/20/19 02/20/19 02/20/19 07:31 07:41 07:51 Temperature Pulse Rate 117 H 121 H Pulse Rate [ Anterior Bilateral Throughout] Pulse Rate [ Apical] Respiratory 16 16 17 Rate Respiratory Rate [Anterior Bilateral Throughout] Blood Pressure 110/54 110/54 110/54 O2 Sat by Pulse 90 89 90 Oximetry 02/20/19 02/20/19 02/20/19 08:00 08:11 08:21 Temperature 98.4 F Pulse Rate 122 H 126 H 124 H Pulse Rate [ Anterior Bilateral Throughout] Pulse Rate [ Apical] Respiratory 16 20 16 Rate Respiratory Rate [Anterior Bilateral Throughout] Blood Pressure 101/48 101/48 101/48 O2 Sat by Pulse 90 92 91 Oximetry 02/20/19 02/20/19 02/20/19 08:31 08:40 08:51 Temperature Pulse Rate 125 H 121 H 128 H Pulse Rate [ Anterior Bilateral Throughout] Pulse Rate [ Apical] Respiratory 21 17 20 Rate Respiratory Rate [Anterior Bilateral Throughout] Blood Pressure 101/48 92/46 92/46 O2 Sat by Pulse 92 92 91 Oximetry 02/20/19 02/20/19 02/20/19 09:00 09:11 09:20 Temperature Pulse Rate 124 H 138 H Pulse Rate [ 126 H Anterior Bilateral Throughout] Pulse Rate [ Apical] Respiratory 16 17 Rate Respiratory 18 Rate [Anterior Bilateral Throughout] Blood Pressure 101/50 101/50 O2 Sat by Pulse 93 92 Oximetry 02/20/19 02/20/19 02/20/19 09:24 09:34 11:45 Temperature 98.2 F Pulse Rate Pulse Rate [ 120 H Anterior Bilateral Throughout] Pulse Rate [ Apical] Respiratory Rate Respiratory 20 Rate [Anterior Bilateral Throughout] Blood Pressure O2 Sat by Pulse 94 Oximetry 02/20/19 02/20/19 11:49 12:00 Temperature 98.3 F 98.3 F Pulse Rate Pulse Rate [ Anterior Bilateral Throughout] Pulse Rate [ Apical] Respiratory Rate Respiratory Rate [Anterior Bilateral Throughout] Blood Pressure O2 Sat by Pulse Oximetry Constitutional: lethargic, asleep, appears uncomfortable Eyes: non-icteric ENT: oropharynx dry Neck: supple, no lymphadenopathy Ascultation: Bilateral: diminished breath sounds Cardiovascular: irregular rhythm, other Gastrointestinal: hypoactive bowel sounds Integumentary: normal Extremities: no cyanosis, no edema Neurologic: unable to assess Psychiatric: other (Patient lethergic and sleepy.) CBC and BMP: 02/20/19 03:22 02/20/19 13:33 Abnormal lab findings: Abnormal Labs 02/18/19 02/18/19 02/18/19 08:03 14:50 14:50 MCV 98 H MCH RDW 15.8 H Plt Count 118 L Lymph % (Auto) [place] % (Auto) Lymph # Seg Neutrophils % POC Potassium 3.4 L Sodium 136 L Potassium Chloride 95.8 L Carbon Dioxide 19 L POC BUN 37 H BUN 41 H Creatinine 8.2 H Glucose 139 H AST Albumin 02/19/19 02/19/19 02/20/19 07:53 07:53 03:22 MCV 98 H 102 H MCH 33 H 33 H RDW 15.7 H 16.9 H Plt Count 86 L 90 L Lymph % (Auto) 6.9 L [place] % (Auto) 7.9 H Lymph # 0.5 L Seg Neutrophils % 84.2 H POC Potassium Sodium Potassium 5.6 H Chloride Carbon Dioxide POC BUN BUN 53 H Creatinine 10.1 H Glucose AST 56 H Albumin 3.5 L Chest x-ray: report reviewed, image reviewed Additional Studies: Chest xray done on 02/19/19 FINDINGS: Heart: Cardiomegaly, stable. Bipolar pacemaker stable.. Mediastinum/Vessels: Trachea midline. Atherosclerotic calcification and tortuosity aorta is stable. Lungs/Pleural space: No pneumothorax. No sizable effusion. Interstitial prominence and left base airspace disease stable. Bony thorax: No acute osseous abnormality. Generalized osteopenia Contrast in the stomach. IMPRESSION: No significant interval change.
--- NOTE | 2019-02-20 14:50 | Consultation ---
CARDIOLOGY CONSULTATION HISTORY OF PRESENT ILLNESS: The patient is a 58-year-old female, who underwent robotic cholecystectomy on 02/18/2019 under general anesthesia. Subsequently, monitored became hypotensive on 02/18/2019 at which time she was given IV fluids and improved. The patient was dialyzed on 02/19/2019. However, again today that is 02/20/2019 the patient was noted to be hypotensive with tachycardia around 120, 130 beats per minute, hence called by Dr. Nelson for consultation. The patient is difficult to communicate because of language barrier, otherwise in no acute distress. The patient's blood pressure 90/60 with heart rate around 110 beats per minute. Paced rhythm noted. However, will awaiting EKG to see the patient is in sinus or atrial fibrillation. PAST MEDICAL HISTORY: Significant for history of essential hypertension, history of primary pulmonary hypertension, history of end-stage renal disease, on dialysis; status post kidney transplant. Also, the patient has history of permanent pacemaker insertion in the past, being followed in our office by Dr. Camarillo. PHYSICAL EXAMINATION: GENERAL: The patient in no acute distress at this point. NECK: Supple, no JVD noted. HEART: Irregular, tachycardic. LUNGS: Clear. ABDOMEN: No distention. EXTREMITIES: Without edema. FINAL IMPRESSION: 1. Hypotension, tachycardia, etiology not clear. We will get an EKG done for evaluation of underlying rhythm. The patient did not have any history of atrial fibrillation in the past. We will get an EKG done. 2. Hypotension and tachycardia, etiology not clear. The patient has recent robotic cholecystectomy performed. We will give IV fluids and see the response. Also, we will get an echocardiogram for evaluation of her LV function on an emergency basis. In the meantime, we will monitor her. We will see the response to the IV fluids. EKG and echocardiogram pending. Thank you very much, Dr. Nelson for letting us participate in your patient's care. JOB# [id number] IGLESIA/CANDELARIA
[2019-02-20 14:52] LABS: Calcium 7.9 mg/dL (8.4-10.2)
[2019-02-20] MEDS ORDERED: CORDARONE 150 MG in D5W 97 ML IV ONE (15:29)
--- NOTE | 2019-02-20 15:37 | Event Note ---
Date: 02/20/19 Patient's echocardiogram showed moderate LVH with excellent LV function and small cavity,markedly dilated RV with hypokinesis,RVSP in 40's.Also patient in atrial fib with rapid VR,partly causing her hypotension,will try iv Amiodorone and see response.
[2019-02-20] MEDS ORDERED: INTROPIN DRIP 800 MG/D5W 250 ML 800 MG/250 ML BAG IV SCH (16:00)
[2019-02-20] MEDS ORDERED: CORDARONE 900 MG in D5W 482 ML IV SCH (16:00)
[2019-02-20] MEDS: COLACE PO SCH (16:45)
[2019-02-20] MEDS: RENVELA PO SCH (16:46)
--- NOTE | 2019-02-20 18:48 | Event Note ---
Date: 02/20/19 Pt seen again. SBP is now in 120s and HR in 110s after starting dopamine gtt and amiodarone gtt per cards. Patient is more awake and alert and conversational. She denies pain. Femoral line was placed by Dr. Zhao to start pressors. Patient moved to ICU. Will start patient on clear liquid diet. I once again called patient's sister Jessenia Healy on the number in the chart, no answer. Will follow up in am.
[2019-02-20] MEDS: NACL 0.9% 1000 ML 1,000 ML IV SCH (20:21)
[2019-02-21] MEDS: COLACE PO SCH ×3 (01:23→22:33)
[2019-02-21] MEDS: ZOFRAN IV PRN (01:24)
[2019-02-21] MEDS: SODIUM CHLORIDE FLUSH SYRINGE 10 ML IV SCH ×3 (01:24→22:32)
--- NOTE | 2019-02-21 01:25 | Nuclear Medicine Report ---
PROCEDURE: NM PULMONARY QUANTITATIVE DIFFERENTIAL PERFUSION AND VENTILATION IMAGING. TECHNIQUE: 4 mCi Tc-99m MAA was injected IV for quantitative differential pulmonary perfusion imagin g in multiple projections. 13 mCi xenon 133 was inhaled for quantitative differential pulmonary venti lation imaging in multiple projections. Injection site: RIGHT antecubital fossa. CPT 47767 REGULATORY GUIDELINES: The patient was released based upon guidelines established in [facility] Regulat ions for Protection Against Radiation, Chapter 1199-11-12-35, Release of Individuals Containing Radio active Drugs or Implants. HISTORY: Chest pain COMPARISONS: None . FINDINGS: Perfusion: No defects . Ventilation: No defects . IMPRESSION: Normal Examination . This document is electronically signed by Yg Rapp MD., Feb 21 2019 01:23:48 AM ET
[2019-02-21] MEDS: PROVENTIL IH SCH ×3 (02:44→15:21)
[2019-02-21] MEDS: NORCO 5/325 PO PRN ×2 (04:49→11:22)
[2019-02-21 05:16] LABS: Basophils % (Auto) 0.2 % (0.0-1.8); Eosinophils # (Auto) 0.1 K/mm3 (0.0-0.4); Eosinophils % (Auto) 0.8 % (0.0-4.3); Hematocrit 28.9 % (30.3-42.9); Hemoglobin 9.7 gm/dl (10.1-14.3); Lymphocytes # (Auto) 0.7 K/mm3 (1.2-5.4); Lymphocytes % (Auto) 7.7 % (13.4-35.0); Mean Corpuscular HGB Conc 34 % (30-34); Mean Corpuscular Volume 97 fl (79-97); Monocytes # (Auto) 0.8 K/mm3 (0.0-0.8); Monocytes % (Auto) 8.7 % (0.0-7.3); Platelet Count 103 K/mm3 (140-440); Red Blood Count 2.97 M/mm3 (3.65-5.03); Red Cell Distribution Width 15.2 % (13.2-15.2)
[2019-02-21 05:33] LABS: Albumin 3.3 g/dL (3.9-5); BUN/Creatinine Ratio 5; Blood Urea Nitrogen 46 mg/dL (7-17); Calcium 8.9 mg/dL (8.4-10.2); Hemolysis Index 4
[2019-02-21 05:53] LABS: Alanine Aminotransferase < 5 units/L (7-56)
[2019-02-21] MEDS: RENVELA PO SCH ×3 (07:34→15:34)
[2019-02-21] MEDS: LOPRESSOR PO SCH ×2 (10:35→22:32)
[2019-02-21] MEDS: FLONASE NS SCH (10:37)
[2019-02-21] MEDS: PROTONIX IV SCH (10:37)
--- NOTE | 2019-02-21 10:55 | Progress Note ---
Assessment and Plan Impression * End-stage renal disease on maintenance hemodialysis * s/p Cholecystecomy for chronic cholecystitis * Hx of complete heart block --s/p permanent pacemaker placement * Hypertension * afib with RVR * hypotension * Anemia secondary to ESRD * Secondary hyperparathyroidism Recommendations * Continue hemodialysis on MWF * cards following for tachycardia * bp noted, no hd today * hospitalist following * keep map >65 * UF as tolerated * Diet per surgery * Epogen with dialysis prn * No IV, BP of any puncture in her access arm Subjective Date of service: 02/21/19 Principal diagnosis: esrd Interval history: resting in bed Objective - Exam Narrative Exam: General appearance: well-developed, well-nourished EENT: ATNC Respiratory: Clear to Ascultation Heart: irregular, irr, tachycardia Gastrointestinal: Present: normal. Absent: tenderness, distended Integumentary: warm and dry Musculoskeletal: Present: other (no edema) Psychiatric: cooperative - Vital Signs Vital signs: Vital Signs - 12hr 02/20/19 02/20/19 02/20/19 23:00 23:15 23:16 Temperature Pulse Rate 89 89 88 Pulse Rate [ Apical] Respiratory 14 19 15 Rate Blood Pressure 101/62 103/58 103/58 O2 Sat by Pulse 96 96 Oximetry 02/20/19 02/21/19 02/21/19 23:30 00:53 01:01 Temperature Pulse Rate 88 71 Pulse Rate [ Apical] Respiratory 17 Rate Blood Pressure 103/58 100/56 104/58 O2 Sat by Pulse 95 97 Oximetry 02/21/19 02/21/19 02/21/19 01:15 01:30 01:45 Temperature Pulse Rate 93 H 86 84 Pulse Rate [ 93 H Apical] Respiratory 17 22 17 Rate Blood Pressure 109/61 111/53 91/52 O2 Sat by Pulse 95 94 93 Oximetry 02/21/19 02/21/19 02/21/19 02:00 02:01 02:15 Temperature Pulse Rate 85 83 79 Pulse Rate [ Apical] Respiratory 20 15 Rate Blood Pressure 93/52 89/48 O2 Sat by Pulse 95 95 Oximetry 02/21/19 02/21/19 02/21/19 02:30 02:45 03:01 Temperature Pulse Rate 78 79 85 Pulse Rate [ Apical] Respiratory 15 16 16 Rate Blood Pressure 99/51 84/47 120/65 O2 Sat by Pulse 95 96 95 Oximetry 02/21/19 02/21/19 02/21/19 03:15 03:30 03:45 Temperature Pulse Rate 81 86 84 Pulse Rate [ Apical] Respiratory 15 15 20 Rate Blood Pressure 116/63 127/65 116/69 O2 Sat by Pulse 94 92 94 Oximetry 02/21/19 02/21/19 02/21/19 03:51 04:00 04:15 Temperature 98.0 F Pulse Rate 86 83 Pulse Rate [ Apical] Respiratory 14 14 Rate Blood Pressure 118/64 115/61 O2 Sat by Pulse 93 94 Oximetry 02/21/19 02/21/19 02/21/19 04:31 04:45 04:49 Temperature Pulse Rate 79 78 Pulse Rate [ Apical] Respiratory 16 14 14 Rate Blood Pressure 97/49 95/49 O2 Sat by Pulse 93 94 Oximetry 02/21/19 02/21/19 02/21/19 05:00 05:15 05:30 Temperature Pulse Rate 77 78 80 Pulse Rate [ 77 Apical] Respiratory 13 14 15 Rate Blood Pressure 102/55 105/59 108/60 O2 Sat by Pulse 94 96 96 Oximetry 02/21/19 02/21/19 02/21/19 05:45 06:00 06:15 Temperature Pulse Rate 77 82 77 Pulse Rate [ Apical] Respiratory 13 17 14 Rate Blood Pressure 99/55 98/51 96/50 O2 Sat by Pulse 94 83 L 96 Oximetry 02/21/19 02/21/19 02/21/19 06:30 06:45 07:00 Temperature Pulse Rate 79 77 81 Pulse Rate [ Apical] Respiratory 17 14 12 Rate Blood Pressure 99/53 100/51 100/56 O2 Sat by Pulse 95 96 96 Oximetry 02/21/19 02/21/19 02/21/19 07:15 07:30 07:45 Temperature Pulse Rate 78 79 80 Pulse Rate [ Apical] Respiratory 12 14 16 Rate Blood Pressure 99/55 109/55 114/64 O2 Sat by Pulse 94 95 95 Oximetry 02/21/19 08:00 Temperature 97.9 F Pulse Rate 79 Pulse Rate [ Apical] Respiratory 16 Rate Blood Pressure 101/62 O2 Sat by Pulse 96 Oximetry - Lab 02/21/19 04:45 02/21/19 04:45 Most recent lab results Calcium 8.9 mg/dL (8.4-10.2) 02/21/19 04:45 Medications & Allergies - Medications Allergies/Adverse Reactions: Allergies heparin Allergy (Intermediate, Verified 02/17/19 13:44) Itching lisinopril Adverse Reaction (Mild, Verified 02/17/19 13:44) COUGH Home Medications: Home Medications Medication Instructions Recorded Confirmed Last Taken Type Sertraline [Zoloft] 1 tab PO DAILY 02/22/16 02/18/19 02/17/19 21:00 History ALBUTEROL NEB's [Proventil 0.083% 2.5 mg IH TID PRN #120 nebu 09/25/17 02/18/19 02/18/19 07:55 Rx NEBS] Fluticasone [Flonase] 1 spray NS QDAY #1 bottle 09/25/17 02/18/19 02/17/19 09:00 Rx Metoprolol [Lopressor TAB] 50 mg PO BID #60 tablet 09/25/17 02/18/19 02/16/19 09:00 Rx amLODIPine [Norvasc] 10 mg PO QDAY #30 tablet 09/25/17 02/18/19 02/16/19 09:00 Rx NIFEdipine [Nifedipine ER] 90 mg PO DAILY 10/28/17 02/18/19 02/16/19 09:00 History hydrALAZINE [Apresoline TAB] 25 mg PO TID 10/28/17 02/18/19 02/16/19 09:00 History ALBUTEROL Inhaler (OR & NICU) 2 puff IH QID PRN 02/17/19 02/18/19 02/17/19 09:00 History [Proair] AtorvaSTATin [Lipitor] 20 mg PO QHS 02/17/19 02/18/19 02/17/19 21:00 History Carvedilol [Coreg] 12.5 mg PO BID 02/17/19 02/18/19 02/17/19 21:00 History Dexlansoprazole [Dexilant] 60 mg PO QDAY 02/17/19 02/18/19 02/16/19 09:00 Histo ry Fluticasone (Nf) [Flovent 220 2 puff IH BID 02/17/19 02/18/19 02/17/19 09:00 History MCG/PUFF HFA] Loratadine [Claritin] 10 mg PO DAILY 05/02/18/19 02/17/19 10:00 History Pregabalin [Lyrica] 50 mg PO DAILY 02/17/19 02/17/19 Unknown History Tadalafil [Cialis] 20 mg PO BID 02/17/19 02/18/19 Unknown History Zolpidem [Ambien] 10 mg PO QHS 02/17/19 02/18/19 02/17/19 21:00 History cloNIDine [Catapres] 0.1 mg PO BID 02/17/19 02/17/19 Unknown History hydrOXYzine HCL [Atarax] 25 mg PO Q6HR PRN 02/17/19 02/18/19 02/17/19 12:00 History Active Medications: Generic Name Dose Route Start Last Admin Trade Name Freq PRN Reason Stop Dose Admin Acetaminophen 650 mg 02/18/19 13:32 02/20/19 04:22 Tylenol PO 650 mg Q4H PRN Administration Pain MILD(1-3)/Fever >100.5/TURNER Acetaminophen/Hydrocodone Bitart 1 each 02/20/19 13:04 02/21/19 04:49 Clifford 5/325 PO 1 each Q6H PRN Administration Pain, Moderate (4-6) Albumin Human 25 gm 02/19/19 10:10 Alburx 25% (Albumin) IV NANNETTE PRN Hypotension Albuterol 2.5 mg 02/19/19 10:15 02/21/19 07:47 Proventil IH 2.5 mg Q8HRT CATHY Administration Atorvastatin Calcium 20 mg 02/19/19 22:00 02/21/19 01:23 Lipitor PO Not Given QHS CATHY Clonidine HCl 0.1 mg 02/19/19 22:00 02/20/19 22:14 Catapres PO Not Given Q12HR CATHY Docusate Sodium 100 mg 02/20/19 14:00 02/21/19 01:23 Colace PO Not Given BID CATHY Fluticasone Propionate 50 mcg 02/19/19 12:00 02/20/19 10:13 Flonase NS 50 mcg DAILY CATHY Administration Hydralazine HCl 25 mg 02/19/19 14:00 02/20/19 22:12 Apresoline PO Not Given Q8HR [facility] Sodium Chloride 1,000 mls @ 42 mls/hr 02/18/19 08:00 02/20/19 20:21 Nacl 0.9% 1000 Ml IV 42 mls/hr DIRECT CATHY Administration Sodium Chloride 100 mls @ 999 mls/hr 02/20/19 11:52 Nacl 0.9% IV NANNETTE PRN Hypotension Dopamine HCl/Dextrose 800 mg in 250 mls @ 2.007 mls/hr 02/20/19 16:00 02/21/19 04:13 Intropin Drip 800 Mg/D5w 250 Ml IV 4 mcg/kg/min TITR CATHY 4.014 mls/hr Titration Protocol 2 MCG/KG/MIN Amiodarone HCl 900 mg/ 500 mls @ 33.333 mls/hr 02/20/19 16:00 02/21/19 08:02 Dextrose IV 0 mg/min DIRECT CATHY 0 mls/hr Titration Protocol 1 MG/MIN Ketorolac Tromethamine 30 mg 02/18/19 17:17 02/18/19 17:35 Toradol IV 02/23/19 17:16 30 mg ONCE PRN Administration Pain , Severe (7-10) Loratadine 10 mg 02/19/19 12:00 02/20/19 10:12 Claritin PO 10 mg QDAY CATHY Administration Metoprolol Tartrate 50 mg 02/19/19 22:00 02/20/19 22:15 Lopressor PO Not Given BID CATHY Naloxone HCl 0.1 mg 02/18/19 13:32 Narcan 0.4 Mg/1 Ml IV Q2MIN PRN Res Rate </= 8 or 02 SAT < 92% Ondansetron HCl 4 mg 02/18/19 13:32 02/19/19 21:10 Zofran IV 4 mg Q8H PRN Administration Nausea And Vomiting Ondansetron HCl 4 mg 02/18/19 13:34 02/21/19 01:24 Zofran IV 4 mg Q6H PRN Administration Nausea And Vomiting Pantoprazole Sodium 40 mg 02/19/19 12:00 02/20/19 10:12 Protonix IV 40 mg QDAY CATHY Administration Pregabalin 50 mg 02/19/19 12:00 02/20/19 10:12 Lyrica PO 50 mg QDAY CATHY Administration Sertraline HCl 100 mg 02/20/19 14:00 02/20/19 13:44 Zoloft PO 100 mg QDAY CATHY Administration Sevelamer Carbonate 800 mg 02/20/19 16:30 02/20/19 16:46 Renvela PO Not Given AC CATHY Sodium Chloride 10 ml 02/18/19 22:00 02/21/19 01:24 Sodium Chloride Flush Syringe 10 Ml IV 10 ml BID CATHY Administration Sodium Chloride 10 ml 02/18/19 13:32 Sodium Chloride Flush Syringe 10 Ml IV PRN PRN LINE FLUSH
[2019-02-21] MEDS: APRESOLINE PO SCH ×3 (11:19→22:33)
[2019-02-21] MEDS: CATAPRES PO SCH ×2 (11:20→22:33)
[2019-02-21] MEDS: LYRICA PO SCH (11:21)
[2019-02-21] MEDS: ZOLOFT PO SCH (11:21)
[2019-02-21] MEDS: CLARITIN PO SCH (11:22)
--- NOTE | 2019-02-21 11:50 | Progress Note ---
Assessment and Plan / Acute on chronic respiratory failure with hypoxia Pulmonary team consulted, supportive care, supplemental oxygen, nebulizer therapy, NIPPV as clinically indicated, pulse oximetry, The high probability of a clinically significant, sudden or life threatening deterioration of the [Cardiac, pulmonary, renal, neuro] system(s) required my full and direct attention, intervention and personal management. The aggregate critical care time was [65] minutes. This time is in addition to time spent performing reported procedures but includes the following: [x] Data Review and interpretation [x] Patient assessment and monitoring of vital signs [x] Documentation [x] Medication orders and management / Atrial fibrillation Cardiology consulted, Pt initiated on amioderone, follow Echo, /Hypotension, wean off pressor as tolerated /Metabolic Acidosis dialysis as per renal team, repeat bmp, / ESRD (end stage renal disease) Nephrology consulted in ED, dialysis as per renal team. / HTN (hypertension) Pt currently hypotensive, hold antihypertensive therapy at this time. / DVT prophylaxis SCD to BLE while in bed. Brief History: 58 YO Female with HTN, ESRD on HD(M,W,F), COPD, Chronic Respiratory Failure on 3L Home oxygen, Diastolic CHF, Pulmonary HTN, SDH admitted for elective laproscopic cholecystectomy. Pt subsequently developed acute onset of Atrial Fib with RVR complicated by cardiac decompensation with hypotension and altered mental status as well as Acute Hypoxemic respiratory failure following surgery. Pt discharged from surgical service and admitted to hospital medicine service for further Mx. Patient admitted to ICU and initiated on IV pressor support, amioderone, supplemental oxygen, nebulizer therapy, and NIPPV . Subjective Date of service: 02/21/19 Principal diagnosis: esrd Interval history: Patient seen and examined denies any chest pain appears very lethargic tolerated clear liquid today Objective - Exam Narrative Exam: General appearance: Present: mild distress - EENT Eyes: Present: PERRL ENT: hearing intact, clear oral mucosa - Neck Neck: Present: supple, normal ROM - Respiratory Respiratory: bilateral: diminished, wheezing - Cardiovascular Rhythm: irregularly irregular - Extremities Extremities: pulses symmetrical, No edema Peripheral Pulses: within normal limits - Abdominal General gastrointestinal: Present: soft, non-tender, non-distended, normal bowel sounds Female genitourinary: Present: normal - Integumentary Integumentary: Present: clear, warm, dry - Musculoskeletal Musculoskeletal: generalized weakness - Psychiatric Psychiatric: no appropriate mood/affect, no intact judgment & insight, no memory intact - Neurologic Neurologic: CNII-XII intact, moves all extremities, no gait normal - Constitutional Vitals: Vital Signs - 12hr 02/21/19 02/21/19 02/21/19 00:53 01:01 01:15 Temperature Pulse Rate 71 93 H Pulse Rate [ Anterior Bilateral Throughout] Pulse Rate [ 93 H Apical] Respiratory 17 Rate Respiratory Rate [Anterior Bilateral Throughout] Blood Pressure 100/56 104/58 109/61 O2 Sat by Pulse 97 95 Oximetry 02/21/19 02/21/19 02/21/19 01:30 01:45 02:00 Temperature Pulse Rate 86 84 85 Pulse Rate [ Anterior Bilateral Throughout] Pulse Rate [ Apical] Respiratory 22 17 20 Rate Respiratory Rate [Anterior Bilateral Throughout] Blood Pressure 111/53 91/52 93/52 O2 Sat by Pulse 94 93 95 Oximetry 02/21/19 02/21/19 02/21/19 02:01 02:15 02:30 Temperature Pulse Rate 83 79 78 Pulse Rate [ Anterior Bilateral Throughout] Pulse Rate [ Apical] Respiratory 15 15 Rate Respiratory Rate [Anterior Bilateral Throughout] Blood Pressure 89/48 99/51 O2 Sat by Pulse 95 95 Oximetry 02/21/19 02/21/19 02/21/19 02:45 03:01 03:15 Temperature Pulse Rate 79 85 81 Pulse Rate [ Anterior Bilateral Throughout] Pulse Rate [ Apical] Respiratory 16 16 15 Rate Respiratory Rate [Anterior Bilateral Throughout] Blood Pressure 84/47 120/65 116/63 O2 Sat by Pulse 96 95 94 Oximetry 02/21/19 02/21/19 02/21/19 03:30 03:45 03:51 Temperature 98.0 F Pulse Rate 86 84 Pulse Rate [ Anterior Bilateral Throughout] Pulse Rate [ Apical] Respiratory 15 20 Rate Respiratory Rate [Anterior Bilateral Throughout] Blood Pressure 127/65 116/69 O2 Sat by Pulse 92 94 Oximetry 02/21/19 02/21/19 02/21/19 04:00 04:15 04:31 Temperature Pulse Rate 86 83 79 Pulse Rate [ Anterior Bilateral Throughout] Pulse Rate [ Apical] Respiratory 14 14 16 Rate Respiratory Rate [Anterior Bilateral Throughout] Blood Pressure 118/64 115/61 97/49 O2 Sat by Pulse 93 94 93 Oximetry 02/21/19 02/21/19 02/21/19 04:45 04:49 05:00 Temperature Pulse Rate 78 77 Pulse Rate [ Anterior Bilateral Throughout] Pulse Rate [ 77 Apical] Respiratory 14 14 13 Rate Respiratory Rate [Anterior Bilateral Throughout] Blood Pressure 95/49 102/55 O2 Sat by Pulse 94 94 Oximetry 02/21/19 02/21/19 02/21/19 05:15 05:30 05:45 Temperature Pulse Rate 78 80 77 Pulse Rate [ Anterior Bilateral Throughout] Pulse Rate [ Apical] Respiratory 14 15 13 Rate Respiratory Rate [Anterior Bilateral Throughout] Blood Pressure 105/59 108/60 99/55 O2 Sat by Pulse 96 96 94 Oximetry 02/21/19 02/21/19 02/21/19 06:00 06:15 06:30 Temperature Pulse Rate 82 77 79 Pulse Rate [ Anterior Bilateral Throughout] Pulse Rate [ Apical] Respiratory 17 14 17 Rate Respiratory Rate [Anterior Bilateral Throughout] Blood Pressure 98/51 96/50 99/53 O2 Sat by Pulse 83 L 96 95 Oximetry 02/21/19 02/21/19 02/21/19 06:45 07:00 07:15 Temperature Pulse Rate 77 81 78 Pulse Rate [ Anterior Bilateral Throughout] Pulse Rate [ Apical] Respiratory 14 12 12 Rate Respiratory Rate [Anterior Bilateral Throughout] Blood Pressure 100/51 100/56 99/55 O2 Sat by Pulse 96 96 94 Oximetry 02/21/19 02/21/19 02/21/19 07:30 07:45 08:00 Temperature 97.9 F Pulse Rate 79 80 79 Pulse Rate [ Anterior Bilateral Throughout] Pulse Rate [ Apical] Respiratory 14 16 16 Rate Respiratory Rate [Anterior Bilateral Throughout] Blood Pressure 109/55 114/64 101/62 O2 Sat by Pulse 95 95 96 Oximetry 02/21/19 02/21/19 02/21/19 09:00 09:10 10:00 Temperature Pulse Rate Pulse Rate [ 79 79 Anterior Bilateral Throughout] Pulse Rate [ Apical] Respiratory Rate Respiratory 16 18 Rate [Anterior Bilateral Throughout] Blood Pressure O2 Sat by Pulse 96 Oximetry 02/21/19 11:20 Temperature Pulse Rate 85 Pulse Rate [ Anterior Bilateral Throughout] Pulse Rate [ Apical] Respiratory Rate Respiratory Rate [Anterior Bilateral Throughout] Blood Pressure 103/62 O2 Sat by Pulse Oximetry - Labs CBC & Chem 7: 02/22/19 05:10 02/22/19 05:10 Labs: Abnormal lab results 02/20/19 02/21/19 02/21/19 Range/Units 13:33 04:45 04:45 RBC 2.97 L (3.65-5.03) M/mm3 Hgb 9.7 L (10.1-14.3) gm/dl Hct 28.9 L D (30.3-42.9) % MCH 33 H (28-32) pg Plt Count 103 L (140-440) K/mm3 Lymph % (Auto) 7.7 L (13.4-35.0) % [place] % (Auto) 8.7 H (0.0-7.3) % Lymph # 0.7 L (1.2-5.4) K/mm3 Seg Neutrophils % 82.6 H (40.0-70.0) % Sodium 136 L (137-145) mmol/L Chloride 97.4 L 92.3 L (98-107) mmol/L Carbon Dioxide 20 L 21 L (22-30) mmol/L BUN 33 H 46 H (7-17) mg/dL Creatinine 7.1 H 8.9 H (0.7-1.2) mg/dL Glucose 107 H 121 H (65-100) mg/dL Calcium 7.9 L (8.4-10.2) mg/dL ALT < 5 L (7-56) units/L Total Protein 5.9 L (6.3-8.2) g/dL Albumin 3.3 L (3.9-5) g/dL
--- NOTE | 2019-02-21 11:51 | Procedure Note ---
Date of procedure: 02/20/19 Pre-op diagnosis: Respiratory Failure, Atrial Fib with RVR Post-op diagnosis: same Procedure: Right Femoral Vein Central Line Placement under ultrasound guidance. The patient was prepped and draped in the usual sterile fashion. A timeout was taken to verify correct procedure, patient, and operative site. The RFV(right femoral vein) was localized with ultrasound without difficulty. Local anesthesia obtained with lodocaine. The seldinger technique was used to access the RFV. A seeker needle was used to access the RFV under ultrasound guidance without difficulty making sure to stay inferior to the inguinal ligament. A guidewire was passed into the RFV and the seeker needle removed. A scalpel was used to incise the skin at the entry site. A dilator was then passed over the guidewire then removed. A triple lumen catheter was then passed over the guidewire into the RFV and the guidewire was removed. The Triple lumen catheter was sewn in place and a biopatch placed at the entry site. All 3 ports flush and draw with ease. EBL: Minimal complications: None Anesthesia: local Surgeon: AMANDA FARIAS Estimated blood loss: minimal Pathology: none Condition: critical Disposition: ICU
--- NOTE | 2019-02-21 14:10 | Progress Note ---
Assessment and Plan 58 yo F s/p robotic cholecystectomy, POD 3 Hx of Heart block s/p pacemaker, COPD, ESRD on HD, pulmonary HTN Plan: Patient condition more stable today. Off amiodarone gtt. Dopamine gtt down to 3. 1. c/w clear liquids - will adv slowly 2. prn pain control 3. HD per nephro 4. pulm on board 5. resume home medications per hospitalist team 6. IS/pulm toilet 7. monitor Hb - repeat CBC in am 8. bowel regimen Plan discussed with patient and sister. Thank you, please call with questions. Subjective Date of service: 02/21/19 Narrative: Pt seen and examined. Feeling better today. Sister at bedside. Had some n/v overnight but none this am. Tolerated clear liquids. States she feels a bit dizzy when she sits up. No f/c, cp, sob. Objective Vital Signs - 12hr 02/21/19 02/21/19 02/21/19 02:15 02:30 02:45 Temperature Pulse Rate 79 78 79 Pulse Rate [ Anterior Bilateral Throughout] Pulse Rate [ Apical] Respiratory 15 15 16 Rate Respiratory Rate [Anterior Bilateral Throughout] Blood Pressure 89/48 99/51 84/47 O2 Sat by Pulse 95 95 96 Oximetry 02/21/19 02/21/19 02/21/19 03:01 03:15 03:30 Temperature Pulse Rate 85 81 86 Pulse Rate [ Anterior Bilateral Throughout] Pulse Rate [ Apical] Respiratory 16 15 15 Rate Respiratory Rate [Anterior Bilateral Throughout] Blood Pressure 120/65 116/63 127/65 O2 Sat by Pulse 95 94 92 Oximetry 02/21/19 02/21/19 02/21/19 03:45 03:51 04:00 Temperature 98.0 F Pulse Rate 84 86 Pulse Rate [ Anterior Bilateral Throughout] Pulse Rate [ Apical] Respiratory 20 14 Rate Respiratory Rate [Anterior Bilateral Throughout] Blood Pressure 116/69 118/64 O2 Sat by Pulse 94 93 Oximetry 02/21/19 02/21/19 02/21/19 04:15 04:31 04:45 Temperature Pulse Rate 83 79 78 Pulse Rate [ Anterior Bilateral Throughout] Pulse Rate [ Apical] Respiratory 14 16 14 Rate Respiratory Rate [Anterior Bilateral Throughout] Blood Pressure 115/61 97/49 95/49 O2 Sat by Pulse 94 93 94 Oximetry 02/21/19 02/21/19 02/21/19 04:49 05:00 05:15 Temperature Pulse Rate 77 78 Pulse Rate [ Anterior Bilateral Throughout] Pulse Rate [ 77 Apical] Respiratory 14 13 14 Rate Respiratory Rate [Anterior Bilateral Throughout] Blood Pressure 102/55 105/59 O2 Sat by Pulse 94 96 Oximetry 02/21/19 02/21/19 02/21/19 05:30 05:45 06:00 Temperature Pulse Rate 80 77 82 Pulse Rate [ Anterior Bilateral Throughout] Pulse Rate [ Apical] Respiratory 15 13 17 Rate Respiratory Rate [Anterior Bilateral Throughout] Blood Pressure 108/60 99/55 98/51 O2 Sat by Pulse 96 94 83 L Oximetry 02/21/19 02/21/19 02/21/19 06:15 06:30 06:45 Temperature Pulse Rate 77 79 77 Pulse Rate [ Anterior Bilateral Throughout] Pulse Rate [ Apical] Respiratory 14 17 14 Rate Respiratory Rate [Anterior Bilateral Throughout] Blood Pressure 96/50 99/53 100/51 O2 Sat by Pulse 96 95 96 Oximetry 02/21/19 02/21/19 02/21/19 07:00 07:15 07:30 Temperature Pulse Rate 81 78 79 Pulse Rate [ Anterior Bilateral Throughout] Pulse Rate [ Apical] Respiratory 12 12 14 Rate Respiratory Rate [Anterior Bilateral Throughout] Blood Pressure 100/56 99/55 109/55 O2 Sat by Pulse 96 94 95 Oximetry 02/21/19 02/21/19 02/21/19 07:45 08:00 09:00 Temperature 97.9 F Pulse Rate 80 79 Pulse Rate [ 79 Anterior Bilateral Throughout] Pulse Rate [ Apical] Respiratory 16 16 Rate Respiratory 16 Rate [Anterior Bilateral Throughout] Blood Pressure 114/64 101/62 O2 Sat by Pulse 95 96 Oximetry 02/21/19 02/21/19 02/21/19 09:10 10:00 11:20 Temperature Pulse Rate 85 Pulse Rate [ 79 Anterior Bilateral Throughout] Pulse Rate [ Apical] Respiratory Rate Respiratory 18 Rate [Anterior Bilateral Throughout] Blood Pressure 103/62 O2 Sat by Pulse 96 Oximetry - General physical appearance Narrative Exam: Gen: AAOx3. NAD ENT: no scleral icterus or conjunctival pallor CV: S1, s2+ resp: even and unlabored Abd: soft, NT, ND. incisions c/d/i Ext; no c/c/e - Labs 02/21/19 04:45 02/21/19 04:45 Diabetes panel 02/20/19 02/21/19 Range/Units 13:33 04:45 Sodium 137 136 L (137-145) mmol/L Potassium 4.3 D 4.6 (3.6-5.0) mmol/L Chloride 97.4 L 92.3 L (98-107) mmol/L Carbon Dioxide 20 L 21 L (22-30) mmol/L BUN 33 H 46 H (7-17) mg/dL Creatinine 7.1 H 8.9 H (0.7-1.2) mg/dL Glucose 107 H 121 H (65-100) mg/dL Calcium 7.9 L 8.9 (8.4-10.2) mg/dL AST 19 (5-40) units/L ALT < 5 L (7-56) units/L Alkaline Phosphatase 70 (35-129) units/L Total Protein 5.9 L (6.3-8.2) g/dL Albumin 3.3 L (3.9-5) g/dL Calcium panel 02/20/19 02/21/19 Range/Units 13:33 04:45 Calcium 7.9 L 8.9 (8.4-10.2) mg/dL Albumin 3.3 L (3.9-5) g/dL Pituitary panel 02/20/19 02/21/19 Range/Units 13:33 04:45 Sodium 137 136 L (137-145) mmol/L Potassium 4.3 D 4.6 (3.6-5.0) mmol/L Chloride 97.4 L 92.3 L (98-107) mmol/L Carbon Dioxide 20 L 21 L (22-30) mmol/L BUN 33 H 46 H (7-17) mg/dL Creatinine 7.1 H 8.9 H (0.7-1.2) mg/dL Glucose 107 H 121 H (65-100) mg/dL Calcium 7.9 L 8.9 (8.4-10.2) mg/dL Adrenal panel 02/20/19 02/21/19 Range/Units 13:33 04:45 Sodium 137 136 L (137-145) mmol/L Potassium 4.3 D 4.6 (3.6-5.0) mmol/L Chloride 97.4 L 92.3 L (98-107) mmol/L Carbon Dioxide 20 L 21 L (22-30) mmol/L BUN 33 H 46 H (7-17) mg/dL Creatinine 7.1 H 8.9 H (0.7-1.2) mg/dL Glucose 107 H 121 H (65-100) mg/dL Calcium 7.9 L 8.9 (8.4-10.2) mg/dL Total Bilirubin 0.50 (0.1-1.2) mg/dL AST 19 (5-40) units/L ALT < 5 L (7-56) units/L Alkaline Phosphatase 70 (35-129) units/L Total Protein 5.9 L (6.3-8.2) g/dL Albumin 3.3 L (3.9-5) g/dL
--- NOTE | 2019-02-21 17:10 | Progress Note ---
Assessment and Plan Acute possibly on chronic hypoxemic respiratory failure. Chronic cholecystitis, now status post cholecystectomy. Pulmonary hypertension Severe Sepsis End-stage renal disease, on dialysis. History of a kidney transplant. Cardiomyopathy with the gross cardiomegaly. Thrombocytopenia. Mild metabolic acidosis with a serum bicarbonate of 19. Mild hyperglycemia with a serum glucose of 139. - continue to wean Levophed for MAP > 65 mmHg - continue supplemental oxygen as needed to keep O2 sat's > 90% - continue bronchodilators with pulmonary hygiene per RT - continue HD/UF for toxin and volume status (M/W/F) - follow clinically off AB's (She received louie-op AB's) - Hypotension likely related to A-Fib with RVR and CMOP - continue to monitor renal indices closely - Avoid nephrotoxic agents, adjust all medications for CrCL - Strict intake and output monitoring - Accuchecks with glycemic control. Target glucose of 140-180 mg/dL - Maintenance of sleep -wake cycle - Mobility protocol for pressure ulcer prophylaxis - Influenza and pneumonia vaccination per protocol ..care plan discussed at length with RN/RT at the bedside ... re-evaluate in am & prn PROGNOSIS: GUARDED CONDITION: CRITICAL CODE STATUS: FULL CODE The high probability of a clinically significant, sudden or life-threatening det erioration of the [respiratory, renal] system(s) required my full and direct attention, intervention and personal management. The aggregate critical care time was [32] minutes without overlap. Time includes spent on; [x] Data Review and interpretation [x] Patient assessment and monitoring of vital signs [x] Documentation [x] Medication orders and management Subjective Date of service: 02/21/19 Principal diagnosis: Ac hypoxemic resp failure; s/p cholecystectomy; Pulmonary HTN; ESRD on HD Interval history: Patient is seen today for: Acute possibly on chronic hypoxemic respiratory failure; Chronic cholecystitis s/p cholecystectomy; Pulmonary hypertension; End- stage renal disease, on dialysis; History of a kidney transplant; Cardiomyopathy with the gross cardiomegaly; Thrombocytopenia. Seen and examined at bedside; 24hour events reviewed; nursing and respiratory care staff consulted; no adverse overnight events reported to me; resting peace fully in bed; Levophed down to 2 mics/min; off amiodarone drip; no N/V/F/C; she denies chest pains or palpitations. Objective Vital Signs - 12hr 02/21/19 02/21/19 02/21/19 05:15 05:30 05:45 Temperature Pulse Rate 78 80 77 Pulse Rate [ Anterior Bilateral Throughout] Respiratory 14 15 13 Rate Respiratory Rate [Anterior Bilateral Throughout] Blood Pressure 105/59 108/60 99/55 O2 Sat by Pulse 96 96 94 Oximetry 02/21/19 02/21/19 02/21/19 06:00 06:15 06:30 Temperature Pulse Rate 82 77 79 Pulse Rate [ Anterior Bilateral Throughout] Respiratory 17 14 17 Rate Respiratory Rate [Anterior Bilateral Throughout] Blood Pressure 98/51 96/50 99/53 O2 Sat by Pulse 83 L 96 95 Oximetry 02/21/19 02/21/19 02/21/19 06:45 07:00 07:15 Temperature Pulse Rate 77 81 78 Pulse Rate [ Anterior Bilateral Throughout] Respiratory 14 12 12 Rate Respiratory Rate [Anterior Bilateral Throughout] Blood Pressure 100/51 100/56 99/55 O2 Sat by Pulse 96 96 94 Oximetry 02/21/19 02/21/19 02/21/19 07:30 07:45 08:00 Temperature 97.9 F Pulse Rate 79 80 79 Pulse Rate [ Anterior Bilateral Throughout] Respiratory 14 16 16 Rate Respiratory Rate [Anterior Bilateral Throughout] Blood Pressure 109/55 114/64 101/62 O2 Sat by Pulse 95 95 96 Oximetry 02/21/19 02/21/19 02/21/19 09:00 09:10 10:00 Temperature Pulse Rate Pulse Rate [ 79 79 Anterior Bilateral Throughout] Respiratory Rate Respiratory 16 18 Rate [Anterior Bilateral Throughout] Blood Pressure O2 Sat by Pulse 96 Oximetry 02/21/19 02/21/19 02/21/19 11:20 15:10 15:22 Temperature Pulse Rate 85 Pulse Rate [ 90 90 Anterior Bilateral Throughout] Respiratory Rate Respiratory 18 18 Rate [Anterior Bilateral Throughout] Blood Pressure 103/62 O2 Sat by Pulse Oximetry Constitutional: appears uncomfortable, other (elderly petite AF, normocephalic with mildly increased resp effort at rest) Eyes: non-icteric ENT: oropharynx dry, other (mallampati 2) Neck: supple, no lymphadenopathy Effort: mildly labored Ascultation: Bilateral: diminished breath sounds, rhonchi Percussion: Bilateral: not dull Cardiovascular: irregular rhythm, other Gastrointestinal: hypoactive bowel sounds, soft, non-tender, non-distended Integumentary: normal Extremities: no cyanosis, no edema, pink and warm, pulses normal, no ischemia or petechiae Neurologic: normal mental status, non-focal exam (grossly), pupils equal and round, motor strength normal and Psychiatric: mood appropriate, affect normal CBC and BMP: 02/22/19 05:10 02/22/19 05:10 Abnormal lab findings: Abnormal Labs 02/18/19 02/18/19 02/18/19 08:03 14:50 14:50 RBC Hgb Hct MCV 98 H MCH RDW 15.8 H Plt Count 118 L Lymph % (Auto) Iron % (Auto) Lymph # Seg Neutrophils % POC Potassium 3.4 L Sodium 136 L Potassium Chloride 95.8 L Carbon Dioxide 19 L POC BUN 37 H BUN 41 H Creatinine 8.2 H Glucose 139 H Calcium AST ALT Total Protein Albumin 02/19/19 02/19/19 02/20/19 07:53 07:53 03:22 RBC Hgb Hct MCV 98 H 102 H MCH 33 H 33 H RDW 15.7 H 16.9 H Plt Count 86 L 90 L Lymph % (Auto) 6.9 L Iron % (Auto) 7.9 H Lymph # 0.5 L Seg Neutrophils % 84.2 H POC Potassium Sodium Potassium 5.6 H Chloride Carbon Dioxide POC BUN BUN 53 H Creatinine 10.1 H Glucose Calcium AST 56 H ALT Total Protein Albumin 3.5 L 02/20/19 02/21/19 02/21/19 13:33 04:45 04:45 RBC 2.97 L Hgb 9.7 L Hct 28.9 L D MCV MCH 33 H RDW Plt Count 103 L Lymph % (Auto) 7.7 L Iron % (Auto) 8.7 H Lymph # 0.7 L Seg Neutrophils % 82.6 H POC Potassium Sodium 136 L Potassium Chloride 97.4 L 92.3 L Carbon Dioxide 20 L 21 L POC BUN BUN 33 H 46 H Creatinine 7.1 H 8.9 H Glucose 107 H 121 H Calcium 7.9 L AST ALT < 5 L Total Protein 5.9 L Albumin 3.3 L Chest x-ray: image reviewed (cardiomegaly and mild interstitial edema) Allied health notes reviewed: nursing
--- NOTE | 2019-02-21 19:51 | Progress Note ---
Assessment and Plan Patient's B.P is stable on small dose of dopamine.Patient converted to S.R on Amiodorone,which was discontinued this AM. Overall patient's general condition is stable and improving.Echo showed LVH with small LV cavity and dilated RV and hypokinesis. Continue present supportive rx.Continue iv fluids. - Patient Problems (1) Acute respiratory failure with hypoxia Current Visit: Yes Status: Acute (2) Atrial fibrillation Current Visit: Yes Status: Acute Qualifiers: Atrial fibrillation type: persistent Qualified Code(s): I48.1 - Persistent atrial fibrillation (3) Status post cholecystectomy Current Visit: Yes Status: Acute (4) Hypertension Current Visit: No Status: Acute (5) COPD (chronic obstructive pulmonary disease) Current Visit: No Status: Chronic Qualifiers: COPD type: COPD with acute exacerbation Qualified Code(s): J44.1 - Chronic obstructive pulmonary disease with (acute) exacerbation (6) ESRD (end stage renal disease) Current Visit: No Status: Chronic (7) Pulmonary HTN Current Visit: No Status: Chronic Subjective Date of service: 02/21/19 Principal diagnosis: esrd Interval history: Patient comfortable,on small dose of dopamine. Objective Vital Signs Temp Pulse Pulse Pulse Resp Resp BP 02/21/19 19:38 02/21/19 15:22 90 18 02/21/19 15:10 90 18 02/21/19 11:20 85 103/62 02/21/19 10:00 02/21/19 09:10 79 18 02/21/19 09:00 79 16 02/21/19 08:00 97.9 F 79 16 101/62 02/21/19 07:45 80 16 114/64 02/21/19 07:30 79 14 109/55 02/21/19 07:15 78 12 99/55 02/21/19 07:00 81 12 100/56 02/21/19 06:45 77 14 100/51 02/21/19 06:30 79 17 99/53 02/21/19 06:15 77 14 96/50 02/21/19 06:00 82 17 98/51 02/21/19 05:45 77 13 99/55 02/21/19 05:30 80 15 108/60 02/21/19 05:15 78 14 105/59 02/21/19 05:00 77 77 13 102/55 05/19/19 04:49 14 05 04:45 78 14 95/49 05// 04:31 79 16 97/49 05/ 04:15 83 14 115/61 05 04:00 86 14 118/64 05 03:51 98.0 F 02/21/19 03:45 84 20 116/69 05// 03:30 86 15 127/65 05/ 03:15 81 15 116/63 05 03:01 85 16 120/65 05 02:45 79 16 84/47 05 02:30 78 15 99/51 05 02:15 79 15 89/48 05 02:01 83 02/21/19 02:00 85 20 93/52 05 01:45 84 17 91/52 05 01:30 86 22 111/53 05 01:15 93 H 93 H 17 109/61 05 01:01 104/58 05// 00:53 71 100/56 0518/19 23:30 88 17 103/58 05/18/19 23:16 88 15 103/58 05/18/19 23:15 89 19 103/58 05/18/19 23:00 89 14 101/62 05/18/19 22:45 89 14 109/61 05/18/19 22:30 94 H 15 103/59 05/18/19 22:27 16 0518/19 22:20 0518/19 22:15 92 H 13 96/55 0518/19 22:14 90 98/54 05/18/19 22:12 90 98/54 05/18/19 22:00 92 H 17 98/54 05/18/19 21:45 94 H 15 98/53 05/18/19 21:31 14 0518/19 21:30 100 H 18 112/63 05/18/19 21:15 101 H 13 105/63 05/18/19 21:00 97.4 F L 103 H 16 118/67 05/18/19 20:56 105 H 15 05/18/19 20:45 113 H 15 137/78 05/18/19 20:41 103 H 15 05/18/19 20:30 111 H 16 117/56 02/20/19 20:15 111 H 18 124/57 02/20/19 20:04 106 H 24 02/20/19 20:00 98.3 F 111 H 18 Pulse Ox 02/21/19 19:38 95 02/21/19 15:22 02/21/19 15:10 02/21/19 11:20 02/21/19 10:00 96 02/21/19 09:10 02/21/19 09:00 02/21/19 08:00 96 02/21/19 07:45 95 02/21/19 07:30 95 02/21/19 07:15 94 02/21/19 07:00 96 02/21/19 06:45 96 02/21/19 06:30 95 02/21/19 06:15 96 02/21/19 06:00 83 L 02/21/19 05:45 94 02/21/19 05:30 96 02/21/19 05:15 96 02/21/19 05:00 94 02/21/19 04:49 02/21/19 04:45 94 02/21/19 04:31 93 02/21/19 04:15 94 02/21/19 04:00 93 02/21/19 03:51 02/21/19 03:45 94 02/21/19 03:30 92 02/21/19 03:15 94 02/21/19 03:01 95 02/21/19 02:45 96 02/21/19 02:30 95 02/21/19 02:15 95 02/21/19 02:01 02/21/19 02:00 95 02/21/19 01:45 93 02/21/19 01:30 94 02/21/19 01:15 95 02/21/19 01:01 97 02/21/19 00:53 02/20/19 23:30 95 02/20/19 23:16 96 02/20/19 23:15 96 02/20/19 23:00 02/20/19 22:45 02/20/19 22:30 05 22:27 96 02/20/19 22:20 91 02/20/19 22:15 02/20/19 22:14 02/20/19 22:12 02/20/19 22:00 02/20/19 21:45 02/20/19 21:31 91 02/20/19 21:30 02/20/19 21:15 02/20/19 21:00 02/20/19 20:56 02/20/19 20:45 02/20/19 20:41 93 02/20/19 20:30 02/20/19 20:15 02/20/19 20:04 02/20/19 20:00 92 - Physical Examination HEENT: Positive: PERRL Neck: Positive: neck supple, trachea midline Cardiac: Positive: Reg Rate and Rhythm, Regular Rhythm. Negative: Audible Murmur Lungs: Positive: Decreased Breath Sounds Abdomen: Positive: Soft Skin: Negative: Rash Extremities: Absent: edema - Labs and Meds Cardiac Enzymes 02/21/19 Range/Units 04:45 AST 19 (5-40) units/L CBC 02/21/19 Range/Units 04:45 WBC 8.8 (4.5-11.0) K/mm3 RBC 2.97 L (3.65-5.03) M/mm3 Hgb 9.7 L (10.1-14.3) gm/dl Hct 28.9 L D (30.3-42.9) % Plt Count 103 L (140-440) K/mm3 Lymph # 0.7 L (1.2-5.4) K/mm3 [place] # 0.8 (0.0-0.8) K/mm3 Eos # 0.1 (0.0-0.4) K/mm3 Baso # 0.0 (0.0-0.1) K/mm3 Comprehensive Metabolic Panel 02/21/19 Range/Units 04:45 Sodium 136 L (137-145) mmol/L Potassium 4.6 (3.6-5.0) mmol/L Chloride 92.3 L (98-107) mmol/L Carbon Dioxide 21 L (22-30) mmol/L BUN 46 H (7-17) mg/dL Creatinine 8.9 H (0.7-1.2) mg/dL Glucose 121 H (65-100) mg/dL Calcium 8.9 (8.4-10.2) mg/dL AST 19 (5-40) units/L ALT < 5 L (7-56) units/L Alkaline Phosphatase 70 (35-129) units/L Total Protein 5.9 L (6.3-8.2) g/dL Albumin 3.3 L (3.9-5) g/dL
[2019-02-21] MEDS: NACL 0.9% 1000 ML 1,000 ML IV SCH (22:31)
[2019-02-22] MEDS: PROVENTIL IH SCH ×2 (00:20→19:13)
--- NOTE | 2019-02-22 02:20 | Consultation ---
REASON FOR CONSULTATION: COPD and pulmonary hypertension. CHIEF COMPLAINT AND HISTORY OF PRESENT ILLNESS: The patient is a 58-year-old female with past medical history significant for a diagnosis of end-stage renal disease, on dialysis, but also severe pulmonary hypertension according to the records and COPD, who was admitted for an elective cholecystectomy for chronic cholecystitis. According to the notes during the surgery, she had some omental bleeding. It was explored, it was controlled and she was admitted therefore to the [facility] for closer observation and we are asked to assist with management of her respiratory issues while she was here. When I stopped by to see her, she was resting in bed. She was on supplemental oxygen requiring at that time, I believe 3 liters nasal cannula to keep her O2 sats about 98%. She denied any acute chest pain. Denied any nausea, vomiting, or overt aspiration. The patient denied any history of tobacco use/abuse, and could not tell me if she was seeing a financial recruiter in town. This really is as much of the history of presentation as I have. PAST MEDICAL HISTORY: Chronic obstructive lung disease, pulmonary hypertension, end-stage renal disease, on dialysis; history of complete heart block, now status post ____ pacemaker and the cholecystitis. PAST SURGICAL HISTORY: Now status post cholecystectomy. She has also had a pacemaker implanted in the past. MEDICATIONS: She was on at the time I stopped by to see her were reviewed. Pertinent medications were as follows: GENERAL: When I stopped by to see her, she was on Tylenol 650 mg p.o. q. 4 hours p.r.n. mild pain and fever p.r.n. albumin, I believe for dialysis for hypotension in dialysis, albuterol 2.5 mg inhaled q. 8 hours scheduled, Lipitor 20 mg p.o. at bedtime, clonidine 0.1 mg p.o. q. 12 hours, Flonase 50 mcg to each nostril daily, hydralazine 25 mg p.o. q. 8 hours scheduled, Dilaudid 0.25 mg IV p.r.n. q. 3 hours p.r.n. severe pain. Toradol 30 mg, she received a one-time dose, Claritin 10 mg p.o. daily, Lopressor 50 mg p.o. b.i.d., morphine sulfate 2 mg IV q. 4 hours p.r.n. moderate pain, Zofran 4 mg IV q. 8 hours p.r.n. nausea and vomiting, Protonix 40 mg IV daily, Lyrica 50 mg p.o. daily. ALLERGIES: HEPARIN and LISINOPRIL, nature of this allergy is unknown. DIET: Petite lady. Denies significant weight loss or gain in the preceding few weeks to months. FAMILY AND SOCIAL HISTORY: I believe she lives in the community. Denies alcohol, tobacco, or illicit drug use or abuse. Family history, otherwise, unremarkable. REVIEW OF SYSTEMS: Is a little difficult to obtain due to language barrier. Since she has been here, no gross hematochezia or melena, no gross hematuria, no dysuria. No hematemesis. No hemoptysis. She denies chest pains. She denies palpitations. No seizures, weakness. REVIEW OF SYSTEMS: Is otherwise unobtainable or as in body of history above. PHYSICAL EXAMINATION: VITAL SIGNS: At initial presentation, she was afebrile, temperature of 98.2 degrees Fahrenheit with a pulse of 79, respiratory rate of 14, blood pressure 110/59, O2 sats were 97% on 3 liters at the time I saw her. GENERAL: She is elderly looking nice young female, normocephalic, atraumatic, talking to me in mostly full sentences with mildly increased respiratory effort at rest. A little uncomfortable, mostly nonrespiratory distress. HEAD, EYES, EARS, NOSE AND THROAT: She is anicteric. No conjunctival erythema. Oropharynx is moist. Oropharynx was Mallampati #2 oropharynx. No gross jugular venous distention, no thyromegaly. Grossly, no palpable lymph nodes in the supraclavicular or submandibular lymph node chains. LUNGS: Auscultation of both lung baker revealed good bilateral air movement, slightly diminished bibasilar air entry. Faint bibasilar inspiratory rales. No wheezing. HEART: Heart sounds 1 and 2 were heard at the time of my evaluation, regular rate and rhythm. She did have a systolic flow murmur. ABDOMEN: Soft, full, bowel sounds are positive, but diminished. She has tenderness in the postop area. No palpable hepatosplenomegaly. EXTREMITIES: Without overt digital clubbing, no cyanosis, no pedal edema. Pedal pulses are palpable bilaterally and strong. NEUROLOGIC: Pupils are equal, round, about 3-4 mm, reactive to light. Extraocular muscle movements are intact. She has spontaneous movements to all 4 extremities. LABORATORY DATA: From my review were as follows: White cell count at admission was 10,600 with a hemoglobin of 12.7, hematocrit of 38.8, platelet count of 118. Serum sodium of 136, potassium 4.9, chloride 96, bicarbonate 19, BUN 41, creatinine 8.2, glucose of 139. No microbiology studies for my review. A chest x-ray was done. I have reviewed the chest x-ray and is described as stable. No significant interval change. She has some suggestions of nodules in the right lung baker about mid lung zones, especially in the bases. This may well be dilated pulmonary vessels, but certainly I cannot rule out occult pulmonary nodule. I do not see any prior CT of the chest. She had a CT scan of the abdomen and pelvis from 2017. I have reviewed the long windows and I do not see any lung nodules or I suspect there thus maybe pulmonary vessels that I am seeing. ASSESSMENT AND PLAN: 1. Acute possibly on chronic hypoxemic respiratory failure. 2. Chronic cholecystitis, now status post cholecystectomy. 3. Pulmonary hypertension. I am unable to quantify the degree of the pulmonary hypertension. I do not have any 2D echocardiogram or other testing to review at this point. 4. End-stage renal disease, on dialysis. 5. History of a kidney transplant. 6. Cardiomyopathy with the gross cardiomegaly. 7. Thrombocytopenia. 8. Mild metabolic acidosis with a serum bicarbonate of 19. 9. Mild hyperglycemia with a serum glucose of 139. PLAN: We will continue supplemental oxygen, making sure that her O2 sats are greater than 90% at all times. Consideration will be given for bilevel positive air pressure ventilation support, especially while asleep if respiratory distress worsens. With a history of COPD given, there may be an element of type 3 World Health Organization pulmonary hypertension at play here, but she also has likely a significant cardiomyopathy, possibly a systolic failure. I will defer on a 2D echocardiogram at this time. I will strongly consider a CT scan of the chest. I will try and review old x-rays if I can pull them up. I am a little comforted by the fact that the radiologist mentions that these changes are all stable, but will benefit from outpatient pulmonary clinic followup. Anti-infective therapy will be at the discretion of the surgeon. We will watch serial H and H to ensure that there is no occult blood loss that is ongoing. She will be placed on GI prophylaxis. DVT prophylaxis is currently with SCDs in light of the possible bleeding and that may be occult and reported during the surgery. Flu and pneumonia vaccination will be addressed per protocol. Thank you very much for the consult. Dr. Nelson and I will follow along. We will make further recommendations as the picture progresses/becomes clearer. JOB# [id number] GINA/CANDELARIA HINSON
[2019-02-22] MEDS: APRESOLINE PO SCH ×3 (05:02→21:25)
[2019-02-22 06:23] LABS: Hematocrit 25.7 % (30.3-42.9)
[2019-02-22 06:36] LABS: Calcium 8.7 mg/dL (8.4-10.2)
[2019-02-22] MEDS: RENVELA PO SCH ×4 (08:00→21:18)
--- NOTE | 2019-02-22 09:13 | Progress Note ---
Assessment and Plan - Patient Problems (1) ESRD (end stage renal disease) Current Visit: No Status: Chronic Plan to address problem: End stage renal disease : access: Radiocephalic fistula Will initiate Hemodialysis 2K/2.5ca/35hco3 bath. (2) Status post cholecystectomy Current Visit: Yes Status: Acute Plan to address problem: s/p cholesystectomy still with some tenderness no masses palpate. (3) Atrial fibrillation Current Visit: Yes Status: Acute Qualifiers: Atrial fibrillation type: persistent Qualified Code(s): I48.1 - Persistent atrial fibrillation Plan to address problem: Atrial fibrillation - continue current medications. (4) Acute respiratory failure Current Visit: No Status: Acute Qualifiers: Respiratory failure complication: hypoxia Qualified Code(s): J96.01 - Acute respiratory failure with hypoxia Plan to address problem: Acute respiratory failure - wean oxygen as tolerated - Will initiate UF. Subjective Principal diagnosis: esrd Interval history: 58 year old with medical history of atrial fibrillation with RVR , acute HYPOXIC respiratory failure, status post cholecystectomy,currently in the ICU Patient seen on HD at 9:20am Denies any orthopnea or PND Denies any lower extremity swelling also has abdominal pain. Objective - Vital Signs Vital signs: Vital Signs - 12hr 02/21/19 02/21/19 02/21/19 21:15 21:30 21:45 Temperature Pulse Rate 95 H 96 H 96 H Pulse Rate [ Anterior Bilateral Throughout] Respiratory 16 15 18 Rate Respiratory Rate [Anterior Bilateral Throughout] Blood Pressure 101/66 92/54 99/58 O2 Sat by Pulse 98 96 98 Oximetry 02/21/19 02/21/19 02/21/19 22:00 22:15 22:30 Temperature Pulse Rate 98 H 98 H 96 H Pulse Rate [ Anterior Bilateral Throughout] Respiratory 16 15 18 Rate Respiratory Rate [Anterior Bilateral Throughout] Blood Pressure 91/55 88/57 93/58 O2 Sat by Pulse 96 96 97 Oximetry 02/21/19 02/21/19 02/21/19 22:45 23:00 23:15 Temperature Pulse Rate 97 H 95 H 96 H Pulse Rate [ Anterior Bilateral Throughout] Respiratory 17 15 14 Rate Respiratory Rate [Anterior Bilateral Throughout] Blood Pressure 88/56 98/56 100/53 O2 Sat by Pulse 96 97 96 Oximetry 02/21/19 02/21/19 02/22/19 23:30 23:45 00:00 Temperature 99.0 F Pulse Rate 92 H 94 H 95 H Pulse Rate [ Anterior Bilateral Throughout] Respiratory 15 14 14 Rate Respiratory Rate [Anterior Bilateral Throughout] Blood Pressure 103/60 103/61 95/56 O2 Sat by Pulse 99 98 97 Oximetry 02/22/19 02/22/19 02/22/19 00:15 00:20 00:30 Temperature Pulse Rate 95 H 96 H Pulse Rate [ 96 H Anterior Bilateral Throughout] Respiratory 17 13 Rate Respiratory 16 Rate [Anterior Bilateral Throughout] Blood Pressure 97/55 97/54 O2 Sat by Pulse 96 97 Oximetry 02/22/19 02/22/19 02/22/19 00:35 00:45 01:00 Temperature Pulse Rate 96 H 94 H 93 H Pulse Rate [ 98 H Anterior Bilateral Throughout] Respiratory 16 15 11 L Rate Respiratory 16 Rate [Anterior Bilateral Throughout] Blood Pressure 107/60 96/57 O2 Sat by Pulse 96 97 97 Oximetry 02/22/19 02/22/19 02/22/19 01:15 01:30 01:45 Temperature Pulse Rate 94 H 95 H 95 H Pulse Rate [ Anterior Bilateral Throughout] Respiratory 18 14 17 Rate Respiratory Rate [Anterior Bilateral Throughout] Blood Pressure 92/59 90/57 93/50 O2 Sat by Pulse 95 95 96 Oximetry 02/22/19 02/22/19 02/22/19 02:00 02:15 02:30 Temperature Pulse Rate 94 H 95 H 94 H Pulse Rate [ Anterior Bilateral Throughout] Respiratory 12 10 L 14 Rate Respiratory Rate [Anterior Bilateral Throughout] Blood Pressure 96/53 95/49 101/53 O2 Sat by Pulse 97 97 97 Oximetry 02/22/19 02/22/19 02/22/19 02:45 03:01 03:15 Temperature Pulse Rate 96 H 96 H 100 H Pulse Rate [ Anterior Bilateral Throughout] Respiratory 15 15 16 Rate Respiratory Rate [Anterior Bilateral Throughout] Blood Pressure 86/52 91/53 94/48 O2 Sat by Pulse 97 95 97 Oximetry 02/22/19 02/22/19 02/22/19 03:30 03:45 04:00 Temperature 98.5 F Pulse Rate 97 H 95 H 97 H Pulse Rate [ Anterior Bilateral Throughout] Respiratory 20 15 14 Rate Respiratory Rate [Anterior Bilateral Throughout] Blood Pressure 105/60 104/59 101/62 O2 Sat by Pulse 93 92 93 Oximetry 02/22/19 02/22/19 02/22/19 04:15 04:30 04:45 Temperature Pulse Rate 97 H 95 H 94 H Pulse Rate [ Anterior Bilateral Throughout] Respiratory 14 13 12 Rate Respiratory Rate [Anterior Bilateral Throughout] Blood Pressure 99/59 94/57 112/64 O2 Sat by Pulse 93 94 95 Oximetry 02/22/19 02/22/19 02/22/19 05:00 05:15 05:30 Temperature Pulse Rate 92 H 91 H 90 Pulse Rate [ Anterior Bilateral Throughout] Respiratory 14 14 14 Rate Respiratory Rate [Anterior Bilateral Throughout] Blood Pressure 107/62 104/61 107/66 O2 Sat by Pulse 97 95 96 Oximetry 02/22/19 02/22/19 02/22/19 05:45 06:00 06:15 Temperature Pulse Rate 89 86 88 Pulse Rate [ Anterior Bilateral Throughout] Respiratory 12 12 12 Rate Respiratory Rate [Anterior Bilateral Throughout] Blood Pressure 99/64 100/57 109/64 O2 Sat by Pulse 96 97 98 Oximetry 02/22/19 06:30 Temperature Pulse Rate 88 Pulse Rate [ Anterior Bilateral Throughout] Respiratory 14 Rate Respiratory Rate [Anterior Bilateral Throughout] Blood Pressure 115/65 O2 Sat by Pulse 97 Oximetry - General Appearance General appearance: well-developed, well-nourished, appears stated age EENT: ATNC, PERRL, mucous membranes moist Neck: no JVD Respiratory: Present: Decreased Breath Sounds Cardiology: regular, irregular, S1S2 Gastrointestinal: normal, normoactive bowel sounds Integumentary: no rash Neurologic: alert and oriented x3, CN 3-12 intact Musculoskeletal: deferred Psychiatric: mood/affect appropriate - Lab 02/22/19 05:10 02/22/19 05:10 Most recent lab results Calcium 8.7 mg/dL (8.4-10.2) 02/22/19 05:10 - Imaging Chest x-ray: image reviewed Medications & Allergies - Medications Allergies/Adverse Reactions: Allergies heparin Allergy (Intermediate, Verified 02/17/19 13:44) Itching lisinopril Adverse Reaction (Mild, Verified 02/17/19 13:44) COUGH Home Medications: Home Medications Medication Instructions Recorded Confirmed Last Taken Type Sertraline [Zoloft] 1 tab PO DAILY 02/22/16 02/18/19 02/17/19 21:00 History ALBUTEROL NEB's [Proventil 0.083% 2.5 mg IH TID PRN #120 nebu 09/25/17 02/18/19 02/18/19 07:55 Rx NEBS] Fluticasone [Flonase] 1 spray NS QDAY #1 bottle 09/25/17 02/18/19 02/17/19 09:00 Rx Metoprolol [Lopressor TAB] 50 mg PO BID #60 tablet 09/25/17 02/18/19 02/16/19 09:00 Rx amLODIPine [Norvasc] 10 mg PO QDAY #30 tablet 09/25/17 02/18/19 02/16/19 09:00 Rx NIFEdipine [Nifedipine ER] 90 mg PO DAILY 10/28/17 02/18/19 02/16/19 09:00 History hydrALAZINE [Apresoline TAB] 25 mg PO TID 10/28/17 02/18/19 02/16/19 09:00 History ALBUTEROL Inhaler (OR & NICU) 2 puff IH QID PRN 02/17/19 02/18/19 02/17/19 09:00 History [Proair] AtorvaSTATin [Lipitor] 20 mg PO QHS 02/17/19 02/18/19 02/17/19 21:00 History Carvedilol [Coreg] 12.5 mg PO BID 02/17/19 02/18/19 02/17/19 21:00 History Dexlansoprazole [Dexilant] 60 mg PO QDAY 02/17/19 02/18/19 02/16/19 09:00 History Fluticasone (Nf) [Flovent 220 2 puff IH BID 02/17/19 02/18/19 02/17/19 09:00 History MCG/PUFF HFA] Loratadine [Claritin] 10 mg PO DAILY 02/17/19 02/18/19 02/17/19 10:00 History Pregabalin [Lyrica] 50 mg PO DAILY 02/17/19 02/17/19 Unknown History Tadalafil [Cialis] 20 mg PO BID 02/17/19 02/18/19 Unknown History Zolpidem [Ambien] 10 mg PO QHS 02/17/19 02/18/19 02/17/19 21:00 History cloNIDine [Catapres] 0.1 mg PO BID 02/17/19 02/17/19 Unknown History hydrOXYzine HCL [Atarax] 25 mg PO Q6HR PRN 02/17/19 02/18/19 02/17/19 12:00 History Active Medications: Generic Name Dose Route Start Last Admin Trade Name Freq PRN Reason Stop Dose Admin Acetaminophen 650 mg 02/18/19 13:32 02/20/19 04:22 Tylenol PO 650 mg Q4H PRN Administration Pain MILD(1-3)/Fever >100.5/TURNER Acetaminophen/Hydrocodone Bitart 1 each 02/20/19 13:04 02/21/19 11:22 [place] 5/325 PO 1 each Q6H PRN Administration Pain, Moderate (4-6) Albumin Human 25 gm 02/19/19 10:10 Alburx 25% (Albumin) IV NANNETTE PRN Hypotension Albuterol 2.5 mg 02/19/19 10:15 02/22/19 00:20 Proventil IH 2.5 mg Q8HRT CATHY Administration Atorvastatin Calcium 20 mg 02/19/19 22:00 02/21/19 22:24 Lipitor PO 20 mg QHS CATHY Administration Clonidine HCl 0.1 mg 02/19/19 22:00 02/21/19 22:33 Catapres PO Not Given Q12HR CATHY Docusate Sodium 100 mg 02/20/19 14:00 02/21/19 22:33 Colace PO Not Given BID CATHY Fluticasone Propionate 50 mcg 02/19/19 12:00 02/21/19 10:37 Flonase NS 50 mcg DAILY CATHY Administration Hydralazine HCl 25 mg 02/19/19 14:00 02/22/19 05:02 Apresoline PO Not Given Q8HR CATHY Sodium Chloride 1,000 mls @ 42 mls/hr 02/18/19 08:00 02/21/19 22:31 Nacl 0.9% 1000 Ml IV 42 mls/hr DIRECT CATHY Administration Sodium Chloride 100 mls @ 999 mls/hr 02/20/19 11:52 Nacl 0.9% IV NANNETTE PRN Hypotension Dopamine HCl/Dextrose 800 mg in 250 mls @ 2.007 mls/hr 02/20/19 16:00 02/21/19 20:00 Intropin Drip 800 Mg/D5w 250 Ml IV 0 mcg/kg/min TITR CATHY 0 mls/hr Titration Protocol 2 MCG/KG/MIN Amiodarone HCl 900 mg/ 500 mls @ 33.333 mls/hr 02/20/19 16:00 02/21/19 08:02 Dextrose IV 0 mg/min DIRECT CATHY 0 mls/hr Titration Protocol 1 MG/MIN Ketorolac Tromethamine 30 mg 02/18/19 17:17 02/18/19 17:35 Toradol IV 02/23/19 17:16 30 mg ONCE PRN Administration Pain , Severe (7-10) Loratadine 10 mg 02/19/19 12:00 02/21/19 11:22 Claritin PO 10 mg QDAY CATHY Administration Metoprolol Tartrate 50 mg 02/19/19 22:00 02/21/19 22:32 Lopressor PO Not Given BID CATHY Naloxone HCl 0.1 mg 02/18/19 13:32 Narcan 0.4 Mg/1 Ml IV Q2MIN PRN Res Rate </= 8 or 02 SAT < 92% Ondansetron HCl 4 mg 02/18/19 13:32 02/19/19 21:10 Zofran IV 4 mg Q8H PRN Administration Nausea And Vomiting Ondansetron HCl 4 mg 02/18/19 13:34 02/21/19 01:24 Zofran IV 4 mg Q6H PRN Administration Nausea And Vomiting Pantoprazole Sodium 40 mg 02/19/19 12:00 02/21/19 10:37 Protonix IV 40 mg QDAY CATHY Administration Pregabalin 50 mg 02/19/19 12:00 02/21/19 11:21 Lyrica PO 50 mg QDAY CATHY Administration Sertraline HCl 100 mg 02/20/19 14:00 02/21/19 11:21 Zoloft PO 100 mg QDAY CATHY Administration Sevelamer Carbonate 800 mg 02/20/19 16:30 02/21/19 15:34 Renvela PO 800 mg AC CATHY Administration Sodium Chloride 10 ml 02/18/19 22:00 02/21/19 22:32 Sodium Chloride Flush Syringe 10 Ml IV 10 ml BID CATHY Administration Sodium Chloride 10 ml 02/18/19 13:32 Sodium Chloride Flush Syringe 10 Ml IV PRN PRN LINE FLUSH
[2019-02-22] MEDS: COLACE PO SCH ×2 (09:52→21:26)
[2019-02-22] MEDS: SODIUM CHLORIDE FLUSH SYRINGE 10 ML IV SCH ×2 (09:53→21:21)
[2019-02-22] MEDS: CLARITIN PO SCH (09:53)
--- NOTE | 2019-02-22 09:55 | Progress Note ---
Assessment and Plan 58 yo F s/p robotic cholecystectomy, POD 4 Hx of Heart block s/p pacemaker, COPD, ESRD on HD, pulmonary HTN Plan: Patient stable. Off amiodarone gtt and dopamine gtt 1. adv to soft diet 2. prn pain control 3. HD per nephro 4. pulm on board 5. resume home medications per hospitalist team 6. IS/pulm toilet 7. monitor Hb, transfuse if recommended by cards. Doubt acute bleeding from surgery 8. bowel regimen Plan discussed with patient and sister. D/W Dr. Tran. Thank you, please call with questions. Subjective Date of service: 02/22/19 Narrative: Pt seen and examined. c/o dizziness when going from sitting to standing position. No n/v. No f/c. Tolerating clear liquids. Minimal abdominal pain near incisions. Objective Vital Signs - 12hr 02/21/19 02/21/19 02/21/19 22:00 22:15 22:30 Temperature Pulse Rate 98 H 98 H 96 H Pulse Rate [ Anterior Bilateral Throughout] Respiratory 16 15 18 Rate Respiratory Rate [Anterior Bilateral Throughout] Blood Pressure 91/55 88/57 93/58 O2 Sat by Pulse 96 96 97 Oximetry 02/21/19 02/21/19 02/21/19 22:45 23:00 23:15 Temperature Pulse Rate 97 H 95 H 96 H Pulse Rate [ Anterior Bilateral Throughout] Respiratory 17 15 14 Rate Respiratory Rate [Anterior Bilateral Throughout] Blood Pressure 88/56 98/56 100/53 O2 Sat by Pulse 96 97 96 Oximetry 02/21/19 02/21/19 02/22/19 23:30 23:45 00:00 Temperature 99.0 F Pulse Rate 92 H 94 H 95 H Pulse Rate [ Anterior Bilateral Throughout] Respiratory 15 14 14 Rate Respiratory Rate [Anterior Bilateral Throughout] Blood Pressure 103/60 103/61 95/56 O2 Sat by Pulse 99 98 97 Oximetry 02/22/19 02/22/19 02/22/19 00:15 00:20 00:30 Temperature Pulse Rate 95 H 96 H Pulse Rate [ 96 H Anterior Bilateral Throughout] Respiratory 17 13 Rate Respiratory 16 Rate [Anterior Bilateral Throughout] Blood Pressure 97/55 97/54 O2 Sat by Pulse 96 97 Oximetry 02/22/19 02/22/19 02/22/19 00:35 00:45 01:00 Temperature Pulse Rate 96 H 94 H 93 H Pulse Rate [ 98 H Anterior Bilateral Throughout] Respiratory 16 15 11 L Rate Respiratory 16 Rate [Anterior Bilateral Throughout] Blood Pressure 107/60 96/57 O2 Sat by Pulse 96 97 97 Oximetry 02/22/19 02/22/19 02/22/19 01:15 01:30 01:45 Temperature Pulse Rate 94 H 95 H 95 H Pulse Rate [ Anterior Bilateral Throughout] Respiratory 18 14 17 Rate Respiratory Rate [Anterior Bilateral Throughout] Blood Pressure 92/59 90/57 93/50 O2 Sat by Pulse 95 95 96 Oximetry 02/22/19 02/22/19 02/22/19 02:00 02:15 02:30 Temperature Pulse Rate 94 H 95 H 94 H Pulse Rate [ Anterior Bilateral Throughout] Respiratory 12 10 L 14 Rate Respiratory Rate [Anterior Bilateral Throughout] Blood Pressure 96/53 95/49 101/53 O2 Sat by Pulse 97 97 97 Oximetry 02/22/19 02/22/19 02/22/19 02:45 03:01 03:15 Temperature Pulse Rate 96 H 96 H 100 H Pulse Rate [ Anterior Bilateral Throughout] Respiratory 15 15 16 Rate Respiratory Rate [Anterior Bilateral Throughout] Blood Pressure 86/52 91/53 94/48 O2 Sat by Pulse 97 95 97 Oximetry 02/22/19 02/22/19 02/22/19 03:30 03:45 04:00 Temperature 98.5 F Pulse Rate 97 H 95 H 97 H Pulse Rate [ Anterior Bilateral Throughout] Respiratory 20 15 14 Rate Respiratory Rate [Anterior Bilateral Throughout] Blood Pressure 105/60 104/59 101/62 O2 Sat by Pulse 93 92 93 Oximetry 02/22/19 02/22/19 02/22/19 04:15 04:30 04:45 Temperature Pulse Rate 97 H 95 H 94 H Pulse Rate [ Anterior Bilateral Throughout] Respiratory 14 13 12 Rate Respiratory Rate [Anterior Bilateral Throughout] Blood Pressure 99/59 94/57 112/64 O2 Sat by Pulse 93 94 95 Oximetry 02/22/19 02/22/19 02/22/19 05:00 05:15 05:30 Temperature Pulse Rate 92 H 91 H 90 Pulse Rate [ Anterior Bilateral Throughout] Respiratory 14 14 14 Rate Respiratory Rate [Anterior Bilateral Throughout] Blood Pressure 107/62 104/61 107/66 O2 Sat by Pulse 97 95 96 Oximetry 05/20/19 05/20/19 05/20/19 05:45 06:00 06:15 Temperature Pulse Rate 89 86 88 Pulse Rate [ Anterior Bilateral Throughout] Respiratory 12 12 12 Rate Respiratory Rate [Anterior Bilateral Throughout] Blood Pressure 99/64 100/57 109/64 O2 Sat by Pulse 96 97 98 Oximetry 02/22/19 06:30 Temperature Pulse Rate 88 Pulse Rate [ Anterior Bilateral Throughout] Respiratory 14 Rate Respiratory Rate [Anterior Bilateral Throughout] Blood Pressure 115/65 O2 Sat by Pulse 97 Oximetry - General physical appearance Narrative Exam: Gen: AAOx3. NAD CV: s1, S2+ resp: even and unlabored Abd: soft, NT, ND. incisions c/d/i. Dressing to right lateral incision changes, some serous drainage from wound. Ext: no c/c/e - Labs 02/22/19 05:10 02/22/19 05:10 Diabetes panel 02/22/19 Range/Units 05:10 Sodium 136 L (137-145) mmol/L Potassium 5.1 H (3.6-5.0) mmol/L Chloride 93.1 L (98-107) mmol/L Carbon Dioxide 20 L (22-30) mmol/L BUN 51 H (7-17) mg/dL Creatinine 10.0 H (0.7-1.2) mg/dL Glucose 116 H (65-100) mg/dL Calcium 8.7 (8.4-10.2) mg/dL Calcium panel 02/22/19 Range/Units 05:10 Calcium 8.7 (8.4-10.2) mg/dL Pituitary panel 02/22/19 Range/Units 05:10 Sodium 136 L (137-145) mmol/L Potassium 5.1 H (3.6-5.0) mmol/L Chloride 93.1 L (98-107) mmol/L Carbon Dioxide 20 L (22-30) mmol/L BUN 51 H (7-17) mg/dL Creatinine 10.0 H (0.7-1.2) mg/dL Glucose 116 H (65-100) mg/dL Calcium 8.7 (8.4-10.2) mg/dL Adrenal panel 02/22/19 Range/Units 05:10 Sodium 136 L (137-145) mmol/L Potassium 5.1 H (3.6-5.0) mmol/L Chloride 93.1 L (98-107) mmol/L Carbon Dioxide 20 L (22-30) mmol/L BUN 51 H (7-17) mg/dL Creatinine 10.0 H (0.7-1.2) mg/dL Glucose 116 H (65-100) mg/dL Calcium 8.7 (8.4-10.2) mg/dL
[2019-02-22] MEDS: CATAPRES PO SCH ×2 (10:00→21:26)
[2019-02-22] MEDS: PROTONIX PO SCH (10:00)
[2019-02-22] MEDS: LYRICA PO SCH (10:00)
[2019-02-22] MEDS: LOPRESSOR PO SCH ×2 (10:00→21:27)
[2019-02-22] MEDS: ZOLOFT PO SCH (10:00)
[2019-02-22] MEDS ORDERED: APRESOLINE ONE (13:47)
--- NOTE | 2019-02-22 13:50 | Progress Note ---
Assessment and Plan Patient's B.P is stable, currently weaned off dopamine. Patient experienced one bout of transient AFib post-operatively and converted to SR after IV amio, amio has since been d/c'd. No indication for initiation of systemic AC at this time. Overall patient's general condition is stable and improving. 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 Cont present cardiac management. The patient has been seen in conjunction with Dr. Murillo who agrees with the assessment and plan of care. - Patient Problems (1) Acute respiratory failure with hypoxia Current Visit: Yes Status: Acute (2) Transient atrial fibrillation Current Visit: Yes Status: Acute Qualifiers: Atrial fibrillation type: persistent Qualified Code(s): I48.1 - Persistent atrial fibrillation (3) Status post cholecystectomy Current Visit: Yes Status: Acute (4) Hypertension Current Visit: Yes Status: Acute (5) COPD (chronic obstructive pulmonary disease) Current Visit: Yes Status: Chronic Qualifiers: COPD type: COPD with acute exacerbation Qualified Code(s): J44.1 - Chronic obstructive pulmonary disease with (acute) exacerbation (6) ESRD (end stage renal disease) Current Visit: Yes Status: Chronic (7) Pulmonary HTN Current Visit: Yes Status: Chronic (8) Hypertensive heart disease Current Visit: Yes Status: Chronic (9) Cardiac pacemaker in situ Current Visit: Yes Status: Chronic Subjective Date of service: 02/22/19 Principal diagnosis: AFib Interval history: pt resting comfortably in bed, no current cardiac complaints, currently undergoing HD. remains in SR or paced rhythm on tele. Objective Last Vital Signs Temp 98.5 F 02/22/19 12:45 Pulse 96 H 02/22/19 13:46 Resp 14 02/22/19 12:45 BP 148/84 02/22/19 13:46 Pulse Ox 97 02/22/19 06:30 - Physical Examination General: No Apparent Distress HEENT: Positive: PERRL Neck: Positive: neck supple, trachea midline Cardiac: Positive: Reg Rate and Rhythm, S1/S2 Lungs: Positive: Decreased Breath Sounds Abdomen: Positive: Soft Skin: Negative: Rash Extremities: Absent: edema - Labs and Meds CBC 02/22/19 Range/Units 05:10 Hgb 9.0 L (10.1-14.3) gm/dl Hct 25.7 L (30.3-42.9) % Comprehensive Metabolic Panel 02/22/19 Range/Units 05:10 Sodium 136 L (137-145) mmol/L Potassium 5.1 H (3.6-5.0) mmol/L Chloride 93.1 L (98-107) mmol/L Carbon Dioxide 20 L (22-30) mmol/L BUN 51 H (7-17) mg/dL Creatinine 10.0 H (0.7-1.2) mg/dL Glucose 116 H (65-100) mg/dL Calcium 8.7 (8.4-10.2) mg/dL - Imaging and Cardiology Echo: report reviewed (EF 80-85%, RV mod dilated, RV systolic function mod re duced, mild TR, RVSP 47mmHg, small ventricular size along with 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 ) - Telemetry EKG Rhythm: Sinus Rhythm
--- NOTE | 2019-02-22 14:08 | Progress Note ---
Assessment and Plan Acute possibly on chronic hypoxemic respiratory failure. Chronic cholecystitis, now status post cholecystectomy. Pulmonary hypertension Severe Sepsis End-stage renal disease, on dialysis. History of a kidney transplant. Cardiomyopathy with the gross cardiomegaly. Thrombocytopenia. Mild metabolic acidosis with a serum bicarbonate of 19. Mild hyperglycemia with a serum glucose of 139. - discontinue femoral CVL - begin heparin for DVT prophylaxis if ok with surgery (held prior due to louie- operative bleeding) - continue supplemental oxygen as needed to keep O2 sat's > 90% - continue bronchodilators with pulmonary hygiene per RT - continue HD/UF for toxin and volume status (M/W/F) - follow clinically off AB's (She received louie-op AB's) - Hypotension likely related to A-Fib with RVR and CMOP - continue to monitor renal indices closely - Avoid nephrotoxic agents, adjust all medications for CrCL - Strict intake and output monitoring - Accuchecks with glycemic control. Target glucose of 140-180 mg/dL - Maintenance of sleep -wake cycle - Mobility protocol for pressure ulcer prophylaxis - Influenza and pneumonia vaccination per protocol ..care plan discussed at length with RN/RT at the bedside ... re-evaluate in am & prn ... tentatively transfer to [facility] CODE STATUS: FULL CODE Subjective Date of service: 02/22/19 Principal diagnosis: Ac hypoxemic resp failure; s/p cholecystectomy; Pulmonary HTN; ESRD on HD Interval history: Patient is seen today for: Acute possibly on chronic hypoxemic respiratory failure; Chronic cholecystitis s/p cholecystectomy; Pulmonary hypertension; End- stage renal disease, on dialysis; History of a kidney transplant; Cardiomyopathy with the gross cardiomegaly; Thrombocytopenia. Seen and examined at bedside; 24hour events reviewed; nursing and respiratory care staff consulted; no adverse overnight events reported to me; resting peacefully in bed; now off levophed; No N/V/F/C; denies chest or abdominal pain Objective Vital Signs - 12hr 02/22/19 02/22/19 02/22/19 02:15 02:30 02:45 Temperature Pulse Rate 95 H 94 H 96 H Respiratory 10 L 14 15 Rate Blood Pressure 95/49 101/53 86/52 O2 Sat by Pulse 97 97 97 Oximetry 02/22/19 02/22/19 02/22/19 03:01 03:15 03:30 Temperature Pulse Rate 96 H 100 H 97 H Respiratory 15 16 20 Rate Blood Pressure 91/53 94/48 105/60 O2 Sat by Pulse 95 97 93 Oximetry 02/22/19 02/22/19 02/22/19 03:45 04:00 04:15 Temperature 98.5 F Pulse Rate 95 H 97 H 97 H Respiratory 15 14 14 Rate Blood Pressure 104/59 101/62 99/59 O2 Sat by Pulse 92 93 93 Oximetry 02/22/19 02/22/19 02/22/19 04:30 04:45 05:00 Temperature Pulse Rate 95 H 94 H 92 H Respiratory 13 12 14 Rate Blood Pressure 94/57 112/64 107/62 O2 Sat by Pulse 94 95 97 Oximetry 02/22/19 02/22/19 02/22/19 05:15 05:30 05:45 Temperature Pulse Rate 91 H 90 89 Respiratory 14 14 12 Rate Blood Pressure 104/61 107/66 99/64 O2 Sat by Pulse 95 96 96 Oximetry 02/22/19 02/22/19 02/22/19 06:00 06:15 06:30 Temperature Pulse Rate 86 88 88 Respiratory 12 12 14 Rate Blood Pressure 100/57 109/64 115/65 O2 Sat by Pulse 97 98 97 Oximetry 02/22/19 02/22/19 02/22/19 09:00 09:05 09:15 Temperature 98.5 F Pulse Rate 92 H 91 H 95 H Respiratory 14 Rate Blood Pressure 107/69 114/64 101/72 O2 Sat by Pulse Oximetry 02/22/19 02/22/19 02/22/19 09:30 09:45 10:00 Temperature Pulse Rate 96 H 95 H 95 H Respiratory Rate Blood Pressure 96/75 92/71 92/71 O2 Sat by Pulse Oximetry 02/22/19 02/22/19 02/22/19 10:15 10:30 10:45 Temperature Pulse Rate 93 H 101 H 93 H Respiratory Rate Blood Pressure 103/73 115/64 123/75 O2 Sat by Pulse Oximetry 02/22/19 02/22/19 02/22/19 11:00 11:15 11:30 Temperature Pulse Rate 94 H 93 H 92 H Respiratory Rate Blood Pressure 131/80 133/80 141/84 O2 Sat by Pulse Oximetry 02/22/19 02/22/19 02/22/19 11:45 12:00 12:15 Temperature Pulse Rate 91 H 94 H 89 Respiratory Rate Blood Pressure 142/84 142/89 147/89 O2 Sat by Pulse Oximetry 02/22/19 02/22/19 02/22/19 12:30 12:45 13:46 Temperature 98.5 F Pulse Rate 93 H 91 H 96 H Respiratory 14 Rate Blood Pressure 153/94 161/92 148/84 O2 Sat by Pulse Oximetry Constitutional: appears uncomfortable, other (elderly petite AF, normocephalic with mildly increased resp effort at rest) Eyes: non-icteric ENT: oropharynx dry, other (mallampati 2) Neck: supple, no lymphadenopathy Effort: mildly labored Ascultation: Bilateral: diminished breath sounds, rhonchi Percussion: Bilateral: not dull Cardiovascular: irregular rhythm, other Gastrointestinal: hypoactive bowel sounds, soft, non-tender, non-distended Integumentary: normal Extremities: no cyanosis, no edema, pink and warm, pulses normal, no ischemia or petechiae Neurologic: normal mental status, non-focal exam (grossly), pupils equal and round, motor strength normal and Psychiatric: mood appropriate, affect normal CBC and BMP: 02/22/19 05:10 02/24/19 05:31 Abnormal lab findings: Abnormal Labs 02/18/19 02/18/19 02/18/19 08:03 14:50 14:50 RBC Hgb Hct MCV 98 H MCH RDW 15.8 H Plt Count 118 L Lymph % (Auto) Webb % (Auto) Lymph # Seg Neutrophils % POC Potassium 3.4 L Sodium 136 L Potassium Chloride 95.8 L Carbon Dioxide 19 L POC BUN 37 H BUN 41 H Creatinine 8.2 H Glucose 139 H Calcium AST ALT Total Protein Albumin 02/19/19 02/19/19 02/20/19 07:53 07:53 03:22 RBC Hgb Hct MCV 98 H 102 H MCH 33 H 33 H RDW 15.7 H 16.9 H Plt Count 86 L 90 L Lymph % (Auto) 6.9 L Webb % (Auto) 7.9 H Lymph # 0.5 L Seg Neutrophils % 84.2 H POC Potassium Sodium Potassium 5.6 H Chloride Carbon Dioxide POC BUN BUN 53 H Creatinine 10.1 H Glucose Calcium AST 56 H ALT Total Protein Albumin 3.5 L 02/20/19 02/21/19 02/21/19 13:33 04:45 04:45 RBC 2.97 L Hgb 9.7 L Hct 28.9 L D MCV MCH 33 H RDW Plt Count 103 L Lymph % (Auto) 7.7 L Webb % (Auto) 8.7 H Lymph # 0.7 L Seg Neutrophils % 82.6 H POC Potassium Sodium 136 L Potassium Chloride 97.4 L 92.3 L Carbon Dioxide 20 L 21 L POC BUN BUN 33 H 46 H Creatinine 7.1 H 8.9 H Glucose 107 H 121 H Calcium 7.9 L AST ALT < 5 L Total Protein 5.9 L Albumin 3.3 L 02/22/19 02/22/19 05:10 05:10 RBC Hgb 9.0 L Hct 25.7 L MCV MCH RDW Plt Count Lymph % (Auto) Webb % (Auto) Lymph # Seg Neutrophils % POC Potassium Sodium 136 L Potassium 5.1 H Chloride 93.1 L Carbon Dioxide 20 L POC BUN BUN 51 H Creatinine 10.0 H Glucose 116 H Calcium AST ALT Total Protein Albumin Allied health notes reviewed: nursing
--- NOTE | 2019-02-22 14:38 | Progress Note ---
Assessment and Plan / Acute on chronic respiratory failure with hypoxia Pulmonary team consulted, supportive care, supplemental oxygen, nebulizer therapy, NIPPV as clinically indicated, pulse oximetry, / Atrial fibrillation Cardiology consulted, s/p amioderone, follow Echo, Now NSR, cont metoprolol No indication for initiation of systemic AC at this time. /Hypotension, weaned off pressor as tolerated - s/p low dose dopamin /Metabolic Acidosis dialysis as per renal team, repeat bmp, / ESRD (end stage renal disease) Nephrology consulted in ED, dialysis as per renal team. / HTN (hypertension) stable with metoprolol /S/p cholecystectomy, surgery following / DVT prophylaxis SCD to BLE while in bed. Transfer to IMCU today Post-op care per [facility] PT eval Brief History: 58 YO Female with HTN, ESRD on HD(M,W,F), COPD, Chronic Respiratory Failure on 3L Home oxygen, Diastolic CHF, Pulmonary HTN, SDH admitted for elective laproscopic cholecystectomy. Pt subsequently developed acute onset of Atrial Fib with RVR complicated by cardiac decompensation with hypotension and altered mental status as well as Acute Hypoxemic respiratory failure following surgery. Pt discharged from surgical service and admitted to hospital medicine service for further Mx. Patient admitted to ICU and initiated on IV pressor support, am ioderone, supplemental oxygen, nebulizer therapy, and NIPPV . Subjective Date of service: 02/22/19 Principal diagnosis: Ac hypoxemic resp failure; s/p cholecystectomy; Pulmonary HTN; ESRD on HD Interval history: Patient seen and examined denies any chest pain appears very lethargic tolerated clear liquid , s/p HD today Objective - Exam Narrative Exam: General appearance: Present: no distress, lethargic - EENT Eyes: Present: PERRL ENT: hearing intact, clear oral mucosa - Neck Neck: Present: supple, normal ROM - Respiratory Respiratory: bilateral: diminished, wheezing - Cardiovascular Rhythm: irregularly irregular - Extremities Extremities: pulses symmetrical, No edema Peripheral Pulses: within normal limits - Abdominal General gastrointestinal: Present: soft, non-tender, non-distended, normal bowel sounds Female genitourinary: Present: normal - Integumentary Integumentary: Present: clear, warm, dry - Musculoskeletal Musculoskeletal: generalized weakness - Psychiatric Psychiatric: no appropriate mood/affect, no intact judgment & insight, no memory intact - Neurologic Neurologic: CNII-XII intact, moves all extremities, no gait normal - Constitutional Vitals: Vital Signs - 12hr 02/22/19 02/22/19 02/22/19 02:45 03:01 03:15 Temperature Pulse Rate 96 H 96 H 100 H Respiratory 15 15 16 Rate Blood Pressure 86/52 91/53 94/48 O2 Sat by Pulse 97 95 97 Oximetry 02/22/19 02/22/19 02/22/19 03:30 03:45 04:00 Temperature 98.5 F Pulse Rate 97 H 95 H 97 H Respiratory 20 15 14 Rate Blood Pressure 105/60 104/59 101/62 O2 Sat by Pulse 93 92 93 Oximetry 02/22/19 02/22/19 02/22/19 04:15 04:30 04:45 Temperature Pulse Rate 97 H 95 H 94 H Respiratory 14 13 12 Rate Blood Pressure 99/59 94/57 112/64 O2 Sat by Pulse 93 94 95 Oximetry 02/22/19 02/22/19 02/22/19 05:00 05:15 05:30 Temperature Pulse Rate 92 H 91 H 90 Respiratory 14 14 14 Rate Blood Pressure 107/62 104/61 107/66 O2 Sat by Pulse 97 95 96 Oximetry 02/22/19 02/22/19 02/22/19 05:45 06:00 06:15 Temperature Pulse Rate 89 86 88 Respiratory 12 12 12 Rate Blood Pressure 99/64 100/57 109/64 O2 Sat by Pulse 96 97 98 Oximetry 02/22/19 02/22/19 02/22/19 06:30 09:00 09:05 Temperature 98.5 F Pulse Rate 88 92 H 91 H Respiratory 14 14 Rate Blood Pressure 115/65 107/69 114/64 O2 Sat by Pulse 97 Oximetry 02/22/19 02/22/19 02/22/19 09:15 09:30 09:45 Temperature Pulse Rate 95 H 96 H 95 H Respiratory Rate Blood Pressure 101/72 96/75 92/71 O2 Sat by Pulse Oximetry 02/22/19 02/22/19 02/22/19 10:00 10:15 10:30 Temperature Pulse Rate 95 H 93 H 101 H Respiratory Rate Blood Pressure 92/71 103/73 115/64 O2 Sat by Pulse Oximetry 02/22/19 02/22/19 02/22/19 10:45 11:00 11:15 Temperature Pulse Rate 93 H 94 H 93 H Respiratory Rate Blood Pressure 123/75 131/80 133/80 O2 Sat by Pulse Oximetry 02/22/19 02/22/19 02/22/19 11:30 11:45 12:00 Temperature Pulse Rate 92 H 91 H 94 H Respiratory Rate Blood Pressure 141/84 142/84 142/89 O2 Sat by Pulse Oximetry 02/22/19 02/22/19 02/22/19 12:15 12:30 12:45 Temperature 98.5 F Pulse Rate 89 93 H 91 H Respiratory 14 Rate Blood Pressure 147/89 153/94 161/92 O2 Sat by Pulse Oximetry 02/22/19 13:46 Temperature Pulse Rate 96 H Respiratory Rate Blood Pressure 148/84 O2 Sat by Pulse Oximetry - Labs CBC & Chem 7: 02/22/19 05:10 02/22/19 05:10 Labs: Abnormal lab results 02/22/19 02/22/19 Range/Units 05:10 05:10 Hgb 9.0 L (10.1-14.3) gm/dl Hct 25.7 L (30.3-42.9) % Sodium 136 L (137-145) mmol/L Potassium 5.1 H (3.6-5.0) mmol/L Chloride 93.1 L (98-107) mmol/L Carbon Dioxide 20 L (22-30) mmol/L BUN 51 H (7-17) mg/dL Creatinine 10.0 H (0.7-1.2) mg/dL Glucose 116 H (65-100) mg/dL
[2019-02-22] MEDS ORDERED: NACL 0.9 (PRIMING MACHINE ONLY DIALYSIS) MC ONE (14:44)
[2019-02-22] MEDS: NORCO 5/325 PO PRN (16:40)
[2019-02-22] MEDS: NACL 0.9% 1000 ML 1,000 ML IV SCH (21:20)
[2019-02-22] MEDS: TORADOL IV PRN (21:20)
[2019-02-23] MEDS: PROVENTIL IH SCH ×4 (00:20→16:12)
[2019-02-23] MEDS: NORCO 5/325 PO PRN ×2 (00:37→10:31)
[2019-02-23] MEDS: APRESOLINE PO SCH ×3 (05:51→22:23)
[2019-02-23 06:28] LABS: Calcium 8.6 mg/dL (8.4-10.2)
[2019-02-23] MEDS ORDERED: NACL 0.9% 1000 ML 1,000 ML ONE (07:10)
[2019-02-23] MEDS ORDERED: LOVENOX SUB-Q SCH (10:00)
--- NOTE | 2019-02-23 10:05 | Progress Note ---
Assessment and Plan - Patient Problems (1) ESRD (end stage renal disease) Current Visit: No Status: Chronic Plan to address problem: End stage renal disease : access: Radiocephalic fistula continue Hemodialysis MWF 2K/2.5ca/35hco3 bath. (2) Status post cholecystectomy Current Visit: Yes Status: Acute Plan to address problem: s/p cholesystectomy still with some tenderness no masses palpate. (3) Atrial fibrillation Current Visit: Yes Status: Acute Qualifiers: Atrial fibrillation type: persistent Qualified Code(s): I48.1 - Persistent atrial fibrillation Plan to address problem: Atrial fibrillation - continue current medications. (4) Acute respiratory failure Current Visit: No Status: Acute Qualifiers: Respiratory failure complication: hypoxia Qualified Code(s): J96.01 - Acute respiratory failure with hypoxia Plan to address problem: Acute respiratory failure - wean oxygen as tolerated - continue UF. Subjective Principal diagnosis: Ac hypoxemic resp failure; s/p cholecystectomy; Pulmonary HTN; ESRD on HD Interval history: 58 year old with medical history of atrial fibrillation with RVR , acute HYPOXIC respiratory failure, status post cholecystectomy,currently in the ICU Patient seen today Denies any orthopnea or PND Denies any lower extremity swelling still has abdominal pain. Objective - Vital Signs Vital signs: Vital Signs - 12hr 02/23/19 02/23/19 02/23/19 00:00 00:18 02:00 Temperature 98.6 F Pulse Rate 91 H Pulse Rate [ Anterior Bilateral Throughout] Pulse Rate [ 91 H Apical] Respiratory 13 Rate Respiratory Rate [Anterior Bilateral Throughout] Blood Pressure O2 Sat by Pulse 98 Oximetry 02/23/19 02/23/19 02/23/19 04:00 04:38 05:51 Temperature 98.0 F Pulse Rate 92 H Pulse Rate [ Anterior Bilateral Throughout] Pulse Rate [ 89 Apical] Respiratory 11 L Rate Respiratory Rate [Anterior Bilateral Throughout] Blood Pressure 113/75 O2 Sat by Pulse 99 Oximetry 02/23/19 02/23/19 02/23/19 09:52 10:03 10:04 Temperature Pulse Rate Pulse Rate [ 93 H 92 H Anterior Bilateral Throughout] Pulse Rate [ Apical] Respiratory Rate Respiratory 20 18 Rate [Anterior Bilateral Throughout] Blood Pressure O2 Sat by Pulse 97 Oximetry - General Appearance General appearance: well-developed, well-nourished EENT: ATNC, PERRL, mucous membranes moist Neck: no JVD Respiratory: Present: Clear to Ascultation Cardiology: regular, S1S2 Gastrointestinal: normal, normoactive bowel sounds Integumentary: no rash Neurologic: alert and oriented x3, CN 3-12 intact Psychiatric: mood/affect appropriate - Lab 02/22/19 05:10 02/23/19 05:00 Most recent lab results Calcium 8.6 mg/dL (8.4-10.2) 02/23/19 05:00 - Imaging Chest x-ray: image reviewed Medications & Allergies - Medications Allergies/Adverse Reactions: Allergies heparin Allergy (Intermediate, Verified 02/17/19 13:44) Itching lisinopril Adverse Reaction (Mild, Verified 02/17/19 13:44) COUGH Home Medications: Home Medications Medication Instructions Recorded Confirmed Last Taken Type Sertraline [Zoloft] 1 tab PO DAILY 02/22/16 02/18/19 02/17/19 21:00 History ALBUTEROL NEB's [Proventil 0.083% 2.5 mg IH TID PRN #120 nebu 09/25/17 02/18/19 02/18/19 07:55 Rx NEBS] Metoprolol [Lopressor TAB] 50 mg PO BID #60 tablet 09/25/17 02/18/19 02/16/19 09:00 Rx ALBUTEROL Inhaler (OR & NICU) 2 puff IH QID PRN 02/17/19 02/18/19 02/17/19 09:00 History [ProAir HFA Inhaler] AtorvaSTATin [Lipitor] 20 mg PO QHS 02/17/19 02/18/19 02/17/19 21:00 History Dexlansoprazole [Dexilant] 60 mg PO QDAY 02/17/19 02/18/19 02/16/19 09:00 History Fluticasone (Nf) [Flovent 220 2 puff IH BID 02/17/19 02/18/19 02/17/19 09:00 History MCG/PUFF HFA] Loratadine [Claritin] 10 mg PO DAILY 02/17/19 02/18/19 02/17/19 10:00 History Pregabalin [Lyrica] 50 mg PO DAILY 02/17/19 02/17/19 Unknown History Tadalafil [Cialis] 20 mg PO BID 02/17/19 02/18/19 Unknown History Zolpidem [Ambien] 10 mg PO QHS 02/17/19 02/18/19 02/17/19 21:00 History hydrOXYzine HCL [Atarax] 25 mg PO Q6HR PRN 02/17/19 02/18/19 02/17/19 12:00 History Aspirin EC 81 mg PO QDAY #30 tablet. 02/23/19 Unknown Rx Active Medications: Generic Name Dose Route Start Last Admin Trade Name Freq PRN Reason Stop Dose Admin Acetaminophen 650 mg 02/18/19 13:32 02/20/19 04:22 Tylenol PO 650 mg Q4H PRN Administration Pain MILD(1-3)/Fever >100.5/TURNER Acetaminophen/Hydrocodone Bitart 1 each 02/20/19 13:04 02/23/19 00:37 [place] 5/325 PO 1 each Q6H PRN Administration Pain, Moderate (4-6) Albumin Human 25 gm 02/19/19 10:10 Alburx 25% (Albumin) IV NANNETTE PRN Hypotension Albuterol 2.5 mg 02/19/19 10:15 02/23/19 09:51 Proventil IH 2.5 mg Q8HRT CATHY Administration Atorvastatin Calcium 20 mg 02/19/19 22:00 02/22/19 21:19 Lipitor PO 20 mg QHS CATHY Administration Clonidine HCl 0.1 mg 02/19/19 22:00 02/22/19 21:26 Catapres PO Not Given Q12HR CATHY Docusate Sodium 100 mg 02/20/19 14:00 02/22/19 21:26 Colace PO Not Given BID CATHY Enoxaparin Sodium 30 mg 02/23/19 10:00 Lovenox SUB-Q QDAY CATHY Fluticasone Propionate 50 mcg 02/19/19 12:00 02/21/19 10:37 Flonase NS 50 mcg DAILY CATHY Administration Hydralazine HCl 25 mg 02/19/19 14:00 02/23/19 05:51 Apresoline PO Not Given Q8HR CATHY Sodium Chloride 100 mls @ 999 mls/hr 02/20/19 11:52 Nacl 0.9% IV NANNETTE PRN Hypotension Ketorolac Tromethamine 30 mg 02/18/19 17:17 02/22/19 21:20 Toradol IV 02/23/19 17:16 30 mg ONCE PRN Administration Pain , Severe (7-10) Loratadine 10 mg 02/19/19 12:00 02/22/19 09:53 Claritin PO 10 mg QDAY CATHY Administration Metoprolol Tartrate 50 mg 02/19/19 22:00 02/22/19 21:27 Lopressor PO Not Given BID CATHY Naloxone HCl 0.1 mg 02/18/19 13:32 Narcan 0.4 Mg/1 Ml IV Q2MIN PRN Res Rate </= 8 or 02 SAT < 92% Ondansetron HCl 4 mg 02/18/19 13:34 02/21/19 01:24 Zofran IV 4 mg Q6H PRN Administration Nausea And Vomiting Pantoprazole Sodium 40 mg 02/22/19 10:00 02/22/19 10:00 Protonix PO 40 mg DAILY CATHY Administration Pregabalin 50 mg 02/19/19 12:00 02/22/19 10:00 Lyrica PO 50 mg QDAY CATHY Administration Sertraline HCl 100 mg 02/20/19 14:00 02/22/19 10:00 Zoloft PO 100 mg QDAY CATHY Administration Sevelamer Carbonate 2,400 mg 02/22/19 16:30 02/22/19 21:18 Renvela PO 2,400 mg AC CATHY Administration Sodium Chloride 10 ml 02/18/19 22:00 02/22/19 21:21 Sodium Chloride Flush Syringe 10 Ml IV 10 ml BID CATHY Administration Sodium Chloride 10 ml 02/18/19 13:32 Sodium Chloride Flush Syringe 10 Ml IV PRN PRN LINE FLUSH
[2019-02-23] MEDS: LYRICA PO SCH (10:23)
[2019-02-23] MEDS: CATAPRES PO SCH ×2 (10:24→22:22)
[2019-02-23] MEDS: COLACE PO SCH ×2 (10:24→22:21)
[2019-02-23] MEDS: RENVELA PO SCH ×3 (10:24→17:17)
[2019-02-23] MEDS: PROTONIX PO SCH (10:24)
[2019-02-23] MEDS: CLARITIN PO SCH (10:24)
[2019-02-23] MEDS: ZOLOFT PO SCH (10:24)
[2019-02-23] MEDS: LOPRESSOR PO SCH ×2 (10:25→22:20)
[2019-02-23] MEDS: SODIUM CHLORIDE FLUSH SYRINGE 10 ML IV SCH ×2 (10:25→22:20)
--- NOTE | 2019-02-23 11:10 | Progress Note ---
Assessment and Plan Patient experienced one bout of transient AFib post-operatively and converted to SR after IV amio, amio has since been d/c'd. No indication for initiation of systemic AC at this time. Overall patient's general condition is stable and improving. 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 Cont present cardiac management. Nothing further to add from cardiac perspective at this time. Will sign off. Recommend pt follow up in our office with Dr. Camarillo within 1-2 weeks of hospital discharge ([phone]). The patient has been seen in conjunction with Dr. Murillo who agrees with the assessment and plan of care. - Patient Problems (1) Acute respiratory failure with hypoxia Current Visit: Yes Status: Acute (2) Transient atrial fibrillation Current Visit: Yes Status: Acute Qualifiers: Atrial fibrillation type: persistent Qualified Code(s): I48.1 - Persistent atrial fibrillation (3) Status post cholecystectomy Current Visit: Yes Status: Acute (4) Hypertension Current Visit: Yes Status: Acute (5) COPD (chronic obstructive pulmonary disease) Current Visit: Yes Status: Chronic Qualifiers: COPD type: COPD with acute exacerbation Qualified Code(s): J44.1 - Chronic obstructive pulmonary disease with (acute) exacerbation (6) ESRD (end stage renal disease) Current Visit: Yes Status: Chronic (7) Pulmonary HTN Current Visit: Yes Status: Chronic (8) Hypertensive heart disease Current Visit: Yes Status: Chronic (9) Cardiac pacemaker in situ Current Visit: Yes Status: Chronic Subjective Date of service: 02/23/19 Principal diagnosis: Ac hypoxemic resp failure; s/p cholecystectomy; Pulmonary H TN; ESRD on HD Interval history: pt resting comfortably in bed, no current cardiac complaints, remains in SR or paced rhythm on tele. Objective Last Vital Signs Temp 98.0 F 02/23/19 04:38 Pulse 92 H 02/23/19 10:03 Resp 18 02/23/19 10:03 BP 113/75 02/23/19 05:51 Pulse Ox 97 02/23/19 10:04 - Physical Examination General: No Apparent Distress HEENT: Positive: PERRL Neck: Positive: neck supple, trachea midline Cardiac: Positive: Reg Rate and Rhythm, S1/S2 Lungs: Positive: Decreased Breath Sounds Abdomen: Positive: Soft Skin: Negative: Rash Extremities: Absent: edema - Labs and Meds Comprehensive Metabolic Panel 02/23/19 Range/Units 05:00 Sodium 141 (137-145) mmol/L Potassium 3.6 D (3.6-5.0) mmol/L Chloride 97.9 L (98-107) mmol/L Carbon Dioxide 28 D (22-30) mmol/L BUN 26 H (7-17) mg/dL Creatinine 5.6 H (0.7-1.2) mg/dL Glucose 92 (65-100) mg/dL Calcium 8.6 (8.4-10.2) mg/dL - Imaging and Cardiology Echo: report reviewed (EF 80-85%, RV mod dilated, RV systolic function mod reduced, mild TR, RVSP 47mmHg, small ventricular size along with 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 ) - Allied health notes Allied health notes reviewed: nursing
--- NOTE | 2019-02-23 11:49 | Progress Note ---
Assessment and Plan Patient S/P cholecystectomy . Patient became hypotensive, hypoxic and tachycardic. Patient transfered to ICU. Patient placed on BIPAP, Patient given I/V fluid and Levophed and antibiotics. Patient improved. Patient transfer back to IMCU. Patient alert, awake,B/P normal No acute respiratory distress.Patients O2 saturation 96% on room air. - Patient Problems (1) Acute respiratory failure with hypoxia Current Visit: Yes Status: Acute Plan to address problem: O2 2 litres via nasal canula. Albuterol/atrovent aerosol treatments q 6 hours. Continue S/C Lovenox. Continue Protonix. (2) Pulmonary hypertension Current Visit: No Status: Acute Plan to address problem: O2 supplementation 2 litres via nasal canula. (3) ESRD (end stage renal disease) Current Visit: No Status: Chronic Plan to address problem: Management as per Nephrology. (4) Status post cholecystectomy Current Visit: Yes Status: Acute Plan to address problem: Management as per surgery. (5) Hypotension Current Visit: Yes Status: Acute Plan to address problem: Improved. Subjective Date of service: 02/23/19 Principal diagnosis: Ac hypoxemic resp failure; s/p cholecystectomy; Pulmonary HTN; ESRD on HD Interval history: Patient S/P cholecystectomy . Patient became hypotensive, hypoxic and tachycardic. Patient transfered to ICU. Patient placed on BIPAP, Patient given I/V fluid and Levophed and antibiotics. Patient improved. Patient transfer back to IMCU. Patient alert, awake,B/P normal No acute respiratory distress.Patients O2 saturation 96% on room air. Objective Vital Signs - 12hr 02/23/19 02/23/19 02/23/19 00:00 00:18 02:00 Temperature 98.6 F Pulse Rate 91 H Pulse Rate [ Anterior Bilateral Throughout] Pulse Rate [ 91 H Apical] Respiratory 13 Rate Respiratory Rate [Anterior Bilateral Throughout] Blood Pressure O2 Sat by Pulse 98 Oximetry 02/23/19 02/23/19 02/23/19 04:00 04:38 05:51 Temperature 98.0 F Pulse Rate 92 H Pulse Rate [ Anterior Bilateral Throughout] Pulse Rate [ 89 Apical] Respiratory 11 L Rate Respiratory Rate [Anterior Bilateral Throughout] Blood Pressure 113/75 O2 Sat by Pulse 99 Oximetry 02/23/19 02/23/19 02/23/19 09:52 10:03 10:04 Temperature Pulse Rate Pulse Rate [ 93 H 92 H Anterior Bilateral Throughout] Pulse Rate [ Apical] Respiratory Rate Respiratory 20 18 Rate [Anterior Bilateral Throughout] Blood Pressure O2 Sat by Pulse 97 Oximetry Constitutional: no acute distress, alert Eyes: non-icteric ENT: oropharynx dry, other (mallampati 2) Neck: supple, no lymphadenopathy Effort: mildly labored Ascultation: Bilateral: diminished breath sounds, rhonchi Percussion: Bilateral: not dull Cardiovascular: irregular rhythm, other Gastrointestinal: hypoactive bowel sounds, soft, non-tender, non-distended Integumentary: normal Extremities: no cyanosis, no edema, pink and warm, pulses normal, no ischemia or petechiae Neurologic: normal mental status, non-focal exam (grossly), pupils equal and round, motor strength normal and Psychiatric: mood appropriate, affect normal CBC and BMP: 02/22/19 05:10 02/23/19 05:00 Abnormal lab findings: Abnormal Labs 02/18/19 02/18/19 02/18/19 08:03 14:50 14:50 RBC Hgb Hct MCV 98 H MCH RDW 15.8 H Plt Count 118 L Lymph % (Auto) [place] % (Auto) Lymph # Seg Neutrophils % POC Potassium 3.4 L Sodium 136 L Potassium Chloride 95.8 L Carbon Dioxide 19 L POC BUN 37 H BUN 41 H Creatinine 8.2 H Glucose 139 H Calcium AST ALT Total Protein Albumin 02/19/19 02/19/19 02/20/19 07:53 07:53 03:22 RBC Hgb Hct MCV 98 H 102 H MCH 33 H 33 H RDW 15.7 H 16.9 H Plt Count 86 L 90 L Lymph % (Auto) 6.9 L [place] % (Auto) 7.9 H Lymph # 0.5 L Seg Neutrophils % 84.2 H POC Potassium Sodium Potassium 5.6 H Chloride Carbon Dioxide POC BUN BUN 53 H Creatinine 10.1 H Glucose Calcium AST 56 H ALT Total Protein Albumin 3.5 L 02/20/19 02/21/19 02/21/19 13:33 04:45 04:45 RBC 2.97 L Hgb 9.7 L Hct 28.9 L D MCV MCH 33 H RDW Plt Count 103 L Lymph % (Auto) 7.7 L [place] % (Auto) 8.7 H Lymph # 0.7 L Seg Neutrophils % 82.6 H POC Potassium Sodium 136 L Potassium Chloride 97.4 L 92.3 L Carbon Dioxide 20 L 21 L POC BUN BUN 33 H 46 H Creatinine 7.1 H 8.9 H Glucose 107 H 121 H Calcium 7.9 L AST ALT < 5 L Total Protein 5.9 L Albumin 3.3 L 02/22/19 02/22/19 02/23/19 05:10 05:10 05:00 RBC Hgb 9.0 L Hct 25.7 L MCV MCH RDW Plt Count Lymph % (Auto) [place] % (Auto) Lymph # Seg Neutrophils % POC Potassium Sodium 136 L Potassium 5.1 H Chloride 93.1 L 97.9 L Carbon Dioxide 20 L POC BUN BUN 51 H 26 H Creatinine 10.0 H 5.6 H Glucose 116 H Calcium AST ALT Total Protein Albumin Allied health notes reviewed: nursing
--- NOTE | 2019-02-23 12:39 | Progress Note ---
Assessment and Plan / Acute on chronic respiratory failure with hypoxia Pulmonary team consulted, cont supportive care, supplemental oxygen, nebulizer therapy, NIPPV as clinically indicated, pulse oximetry, pt now at baseline / Atrial fibrillation Cardiology consulted, s/p amioderone, follow Echo, Now NSR, cont metoprolol if BP tolerates No indication for initiation of systemic AC at this time. /Hypotension, weaned off pressor as tolerated - s/p low dose dopamin - will hold bp meds and give 500ml NS - midodrine as needed /Metabolic Acidosis dialysis as per renal team, repeat bmp, / ESRD (end stage renal disease) Nephrology consulted in ED, dialysis as per renal team. / HTN (hypertension) stable with metoprolol /S/p cholecystectomy, surgery following / DVT prophylaxis SCD to BLE while in bed. Transfer to IMCU today Post-op care per PT eval pending Disposition: home if BP stable and PT clears Brief History: 58 YO Female with HTN, ESRD on HD(M,W,F), COPD, Chronic Respiratory Failure on 3L Home oxygen, Diastolic CHF, Pulmonary HTN, SDH admitted for elective laproscopic cholecystectomy. Pt subsequently developed acute onset of Atrial Fib with RVR complicated by cardiac decompensation with hypotension and altered mental status as well as Acute Hypoxemic respiratory failure following surgery. Pt discharged from surgical service and admitted to hospital medicine service for further Mx. Patient admitted to ICU and initiated on IV pressor support, amioderone, supplemental oxygen, nebulizer therapy, and NIPPV . Subjective Date of service: 02/23/19 Principal diagnosis: Ac hypoxemic resp failure; s/p cholecystectomy; Pulmonary HTN; ESRD on HD Interval history: Patient seen and examined denies any chest pain feeling well, planned for discharge but BP dropped to low 80s tolerating diet Objective - Exam Narrative Exam: General appearance: Present: no distress, lethargic - EENT Eyes: Present: PERRL ENT: hearing intact, clear oral mucosa - Neck Neck: Present: supple, normal ROM - Respiratory Respiratory: bilateral: diminished, wheezing - Cardiovascular Rhythm: irregularly irregular - Extremities Extremities: pulses symmetrical, No edema Peripheral Pulses: within normal limits - Abdominal General gastrointestinal: Present: soft, non-tender, non-distended, normal bowel sounds Female genitourinary: Present: normal - Integumentary Integumentary: Present: clear, warm, dry - Musculoskeletal Musculoskeletal: generalized weakness - Psychiatric Psychiatric: no appropriate mood/affect, no intact judgment & insight, no memory intact - Neurologic Neurologic: CNII-XII intact, moves all extremities, no gait normal - Constitutional Vitals: Vital Signs - 12hr 02/23/19 02/23/19 02/23/19 02:00 04:00 04:38 Temperature 98.0 F Pulse Rate 91 H Pulse Rate [ Anterior Bilateral Throughout] Pulse Rate [ 89 Apical] Respiratory 11 L Rate Respiratory Rate [Anterior Bilateral Throughout] Blood Pressure O2 Sat by Pulse 99 Oximetry 02/23/19 02/23/19 02/23/19 05:51 08:00 09:52 Temperature 97.6 F Pulse Rate 92 H Pulse Rate [ 93 H Anterior Bilateral Throughout] Pulse Rate [ 89 Apical] Respiratory 11 L Rate Respiratory 20 Rate [Anterior Bilateral Throughout] Blood Pressure 113/75 O2 Sat by Pulse 99 Oximetry 02/23/19 02/23/19 02/23/19 10:00 10:03 10:04 Temperature Pulse Rate 92 H Pulse Rate [ 92 H Anterior Bilateral Throughout] Pulse Rate [ Apical] Respiratory Rate Respiratory 18 Rate [Anterior Bilateral Throughout] Blood Pressure O2 Sat by Pulse 97 Oximetry 02/23/19 12:00 Temperature 97.5 F L Pulse Rate Pulse Rate [ Anterior Bilateral Throughout] Pulse Rate [ 89 Apical] Respiratory 11 L Rate Respiratory Rate [Anterior Bilateral Throughout] Blood Pressure O2 Sat by Pulse 99 Oximetry - Labs CBC & Chem 7: 02/22/19 05:10 02/24/19 05:31 Labs: Abnormal lab results 02/23/19 Range/Units 05:00 Chloride 97.9 L (98-107) mmol/L BUN 26 H (7-17) mg/dL Creatinine 5.6 H (0.7-1.2) mg/dL
--- NOTE | 2019-02-23 14:12 | Progress Note ---
Assessment and Plan 58 yo F s/p robotic cholecystectomy, POD 5 Hx of Heart block s/p pacemaker, COPD, ESRD on HD, pulmonary HTN Plan: Patient stable. Off amiodarone gtt and dopamine gtt 1. soft diet 2. prn PO pain control 3. HD per nephro 4. pulm on board 5. resume home medications per hospitalist team 6. IS/pulm toilet 7. bowel regimen Will s/o. Patient may follow up in surgery clinic in 1 week upon discharge Thank you, please call with questions. Subjective Date of service: 02/23/19 Narrative: Pt seen and examined. States she feels tired and dizzy at times. Hypotension this afternoon. No f/c. No n/v. Tolerating diet. Objective Vital Signs - 12hr 02/23/19 02/23/19 02/23/19 04:00 04:38 05:51 Temperature 98.0 F Pulse Rate 92 H Pulse Rate [ Anterior Bilateral Throughout] Pulse Rate [ 89 Apical] Respiratory 11 L Rate Respiratory Rate [Anterior Bilateral Throughout] Blood Pressure 113/75 O2 Sat by Pulse 99 Oximetry 02/23/19 02/23/19 02/23/19 08:00 09:52 10:00 Temperature 98.3 F Pulse Rate 92 H Pulse Rate [ 93 H Anterior Bilateral Throughout] Pulse Rate [ 89 Apical] Respiratory 11 L Rate Respiratory 20 Rate [Anterior Bilateral Throughout] Blood Pressure O2 Sat by Pulse 99 Oximetry 02/23/19 02/23/19 02/23/19 10:03 10:04 12:00 Temperature 97.9 F Pulse Rate Pulse Rate [ 92 H Anterior Bilateral Throughout] Pulse Rate [ 89 Apical] Respiratory 11 L Rate Respiratory 18 Rate [Anterior Bilateral Throughout] Blood Pressure O2 Sat by Pulse 97 99 Oximetry - General physical appearance Narrative Exam: Gen: AAOx3. NAD CV: s1, S2+ Resp; even and unlabored Abd: soft, NT, ND. incisions c/d/i Ext: no c/c/e - Labs 02/22/19 05:10 02/23/19 05:00 Diabetes panel 02/23/19 Range/Units 05:00 Sodium 141 (137-145) mmol/L Potassium 3.6 D (3.6-5.0) mmol/L Chloride 97.9 L (98-107) mmol/L Carbon Dioxide 28 D (22-30) mmol/L BUN 26 H (7-17) mg/dL Creatinine 5.6 H (0.7-1.2) mg/dL Glucose 92 (65-100) mg/dL Calcium 8.6 (8.4-10.2) mg/dL Calcium panel 02/23/19 Range/Units 05:00 Calcium 8.6 (8.4-10.2) mg/dL Pituitary panel 02/23/19 Range/Units 05:00 Sodium 141 (137-145) mmol/L Potassium 3.6 D (3.6-5.0) mmol/L Chloride 97.9 L (98-107) mmol/L Carbon Dioxide 28 D (22-30) mmol/L BUN 26 H (7-17) mg/dL Creatinine 5.6 H (0.7-1.2) mg/dL Glucose 92 (65-100) mg/dL Calcium 8.6 (8.4-10.2) mg/dL Adrenal panel 02/23/19 Range/Units 05:00 Sodium 141 (137-145) mmol/L Potassium 3.6 D (3.6-5.0) mmol/L Chloride 97.9 L (98-107) mmol/L Carbon Dioxide 28 D (22-30) mmol/L BUN 26 H (7-17) mg/dL Creatinine 5.6 H (0.7-1.2) mg/dL Glucose 92 (65-100) mg/dL Calcium 8.6 (8.4-10.2) mg/dL
[2019-02-23] MEDS: FLONASE NS SCH (15:49)
[2019-02-23] MEDS ORDERED: NACL 0.9% 500 ML 500 ML IV ONE (17:11)
[2019-02-24] MEDS: PROVENTIL IH SCH ×3 (00:09→17:23)
[2019-02-24] MEDS ORDERED: PROAMATINE PO ONE (04:40)
[2019-02-24 06:44] LABS: Calcium 8.5 mg/dL (8.4-10.2)
[2019-02-24] MEDS: RENVELA PO SCH (09:58)
[2019-02-24] MEDS: CATAPRES PO SCH (09:59)
[2019-02-24] MEDS: LOPRESSOR PO SCH (09:59)
[2019-02-24 13:39] VITALS: BP 131/69
--- NOTE | 2019-02-24 14:08 | Progress Note ---
Assessment and Plan - Patient Problems (1) ESRD (end stage renal disease) Current Visit: No Status: Chronic Plan to address problem: End stage renal disease : access: Radiocephalic fistula continue Hemodialysis MWF 2K/2.5ca/35hco3 bath. (2) Status post cholecystectomy Current Visit: Yes Status: Acute Plan to address problem: s/p cholesystectomy still with some tenderness no masses palpate. (3) Atrial fibrillation Current Visit: Yes Status: Acute Qualifiers: Atrial fibrillation type: persistent Qualified Code(s): I48.1 - Persistent atrial fibrillation Plan to address problem: Atrial fibrillation - continue current medications. (4) Acute respiratory failure Current Visit: No Status: Acute Qualifiers: Respiratory failure complication: hypoxia Qualified Code(s): J96.01 - Acute respiratory failure with hypoxia Plan to address problem: Acute respiratory failure - wean oxygen as tolerated - continue UF. Subjective Principal diagnosis: Ac hypoxemic resp failure; s/p cholecystectomy; Pulmonary HTN; ESRD on HD Interval history: 58 year old with medical history of atrial fibrillation with RVR , acute HYPOXIC respiratory failure, status post cholecystectomy,currently in the ICU Patient seen today on hemodialysis. Denies any orthopnea or PND Denies any lower extremity swelling had some dizziness Internal medicine gave 500cc saline yesterday Objective - Vital Signs Vital signs: Vital Signs - 12hr 02/24/19 02/24/19 02/24/19 04:00 08:00 08:30 Temperature 98.1 F 98.4 F Pulse Rate 71 Pulse Rate [ 81 81 Apical] Respiratory 16 16 Rate Blood Pressure 102/62 102/62 110/61 O2 Sat by Pulse 98 98 Oximetry 02/24/19 02/24/19 02/24/19 08:45 09:00 09:15 Temperature Pulse Rate 74 71 75 Pulse Rate [ Apical] Respiratory Rate Blood Pressure 111/59 112/46 119/67 O2 Sat by Pulse Oximetry 02/24/19 02/24/19 02/24/19 09:30 09:45 09:59 Temperature Pulse Rate 75 75 Pulse Rate [ Apical] Respiratory Rate Blood Pressure 121/60 126/59 89/42 O2 Sat by Pulse Oximetry 02/24/19 02/24/19 02/24/19 10:00 10:15 10:30 Temperature Pulse Rate 74 75 72 Pulse Rate [ Apical] Respiratory Rate Blood Pressure 110/60 113/58 108/62 O2 Sat by Pulse Oximetry 02/24/19 02/24/19 02/24/19 10:45 11:00 11:15 Temperature Pulse Rate 73 73 72 Pulse Rate [ Apical] Respiratory Rate Blood Pressure 123/66 127/69 138/69 O2 Sat by Pulse Oximetry 02/24/19 02/24/19 02/24/19 11:30 11:45 12:00 Temperature Pulse Rate 72 73 72 Pulse Rate [ Apical] Respiratory Rate Blood Pressure 130/66 123/70 131/69 O2 Sat by Pulse Oximetry - General Appearance General appearance: well-developed EENT: ATNC, PERRL, mucous membranes moist Neck: no JVD Respiratory: Present: Clear to Ascultation Cardiology: regular, S1S2 Gastrointestinal: normal, normoactive bowel sounds, no organomegaly Integumentary: no rash Neurologic: no focal deficit, alert and oriented x3 Psychiatric: mood/affect appropriate - Lab 02/22/19 05:10 02/24/19 05:31 Most recent lab results Calcium 8.5 mg/dL (8.4-10.2) 02/24/19 05:31 - Imaging Chest x-ray: image reviewed Medications & Allergies - Medications Allergies/Adverse Reactions: Allergies heparin Allergy (Intermediate, Verified 02/17/19 13:44) Itching lisinopril Adverse Reaction (Mild, Verified 02/17/19 13:44) COUGH Home Medications: Home Medications Medication Instructions Recorded Confirmed Last Taken Type Sertraline [Zoloft] 1 tab PO DAILY 02/22/16 02/18/19 02/17/19 21:00 History ALBUTEROL NEB's [Proventil 0.083% 2.5 mg IH TID PRN #120 nebu 09/25/17 02/18/19 02/18/19 07:55 Rx NEBS] ALBUTEROL Inhaler (OR & NICU) 2 puff IH QID PRN 02/17/19 02/18/19 02/17/19 09:00 History [ProAir HFA Inhaler] AtorvaSTATin [Lipitor] 20 mg PO QHS 02/17/19 02/18/19 02/17/19 21:00 History Dexlansoprazole [Dexilant] 60 mg PO QDAY 02/17/19 02/18/19 02/16/19 09:00 History Fluticasone (Nf) [Flovent 220 2 puff IH BID 02/17/19 02/18/19 02/17/19 09:00 History MCG/PUFF HFA] Loratadine [Claritin] 10 mg PO DAILY 02/17/19 02/18/19 02/17/19 10:00 History Pregabalin [Lyrica] 50 mg PO DAILY 02/17/19 02/17/19 Unknown History Tadalafil [Cialis] 20 mg PO BID 02/17/19 02/18/19 Unknown History Zolpidem [Ambien] 10 mg PO QHS 02/17/19 02/18/19 02/17/19 21:00 History hydrOXYzine HCL [Atarax] 25 mg PO Q6HR PRN 02/17/19 02/18/19 02/17/19 12:00 History Aspirin EC 81 mg PO QDAY #30 tablet. 02/23/19 Unknown Rx Midodrine [Proamatine] 5 mg PO TID@0800,1200,1600 #30 02/24/19 Unknown Rx tablet Active Medications: Generic Name Dose Route Start Last Admin Trade Name Freq PRN Reason Stop Dose Admin Acetaminophen 650 mg 02/18/19 13:32 02/20/19 04:22 Tylenol PO 650 mg Q4H PRN Administration Pain MILD(1-3)/Fever >100.5/TURNER Acetaminophen/Hydrocodone Bitart 1 each 02/20/19 13:04 02/23/19 10:31 Sarita 5/325 PO 1 each Q6H PRN Administration Pain, Moderate (4-6) Albumin Human 25 gm 02/19/19 10:10 Alburx 25% (Albumin) IV NANNETTE PRN Hypotension Albuterol 2.5 mg 02/19/19 10:15 02/24/19 08:25 Proventil IH Not Given Q8HRT CATHY Atorvastatin Calcium 20 mg 02/19/19 22:00 02/23/19 22:19 Lipitor PO 20 mg QHS CATHY Administration Docusate Sodium 100 mg 02/20/19 14:00 02/23/19 22:21 Colace PO Not Given BID CATHY Enoxaparin Sodium 30 mg 02/23/19 10:00 02/23/19 10:24 Lovenox SUB-Q 30 mg QDAY CATHY Administration Fluticasone Propionate 50 mcg 02/19/19 12:00 02/23/19 15:49 Flonase NS Not Given DAILY CATHY Sodium Chloride 100 mls @ 999 mls/hr 02/20/19 11:52 Nacl 0.9% IV NANNETTE PRN Hypotension Loratadine 10 mg 02/19/19 12:00 02/23/19 10:24 Claritin PO 10 mg QDAY CATHY Administration Midodrine 5 mg 02/24/19 16:00 Proamatine PO TID@0800,1200,1600 CATHY Naloxone HCl 0.1 mg 02/18/19 13:32 Narcan 0.4 Mg/1 Ml IV Q2MIN PRN Res Rate </= 8 or 02 SAT < 92% Ondansetron HCl 4 mg 02/18/19 13:34 02/21/19 01:24 Zofran IV 4 mg Q6H PRN Administration Nausea And Vomiting Pantoprazole Sodium 40 mg 02/22/19 10:00 02/23/19 10:24 Protonix PO 40 mg DAILY CATHY Administration Sevelamer Carbonate 2,400 mg 02/22/19 16:30 02/24/19 09:58 Renvela PO Not Given AC CATHY Sodium Chloride 10 ml 02/18/19 22:00 02/23/19 22:20 Sodium Chloride Flush Syringe 10 Ml IV 10 ml BID CATHY Administration Sodium Chloride 10 ml 02/18/19 13:32 Sodium Chloride Flush Syringe 10 Ml IV PRN PRN LINE FLUSH
--- NOTE | 2019-02-24 14:58 | Progress Note ---
Assessment and Plan Patient S/P cholecystectomy . Patient alert, awake. resting on nasal o2 2 litres.O2 saturation 98%. No acute respiratory distress at rest. Patient discharged to go home. Patient has appointment in 1 month. If she is doing OK , keep that appoints. If develops any pulmonary priblems can come to the office sooner. - Patient Problems (1) Acute respiratory failure with hypoxia Current Visit: Yes Status: Acute Plan to address problem: O2 2 litres via nasal canula. Albuterol/atrovent aerosol treatments q 6 hours. Continue S/C Lovenox. Continue Protonix. (2) Pulmonary hypertension Current Visit: No Status: Acute Plan to address problem: O2 supplementation 2 litres via nasal canula. (3) ESRD (end stage renal disease) Current Visit: No Status: Chronic Plan to address problem: Management as per Nephrology. (4) Status post cholecystectomy Current Visit: Yes Status: Acute Plan to address problem: Management as per surgery. (5) Hypotension Current Visit: Yes Status: Acute Plan to address problem: Improved. Subjective Date of service: 02/24/19 Principal diagnosis: Ac hypoxemic resp failure; s/p cholecystectomy; Pulmonary HTN; ESRD on HD Interval history: Patient S/P cholecystectomy . Patient alert, awake. resting on nasal o2 2 litres.O2 saturation 98%. No acute respiratory distress at rest. Patient discharged to go home. Patient has appointment in 1 month. If she is doing OK , keep that appoints. If develops any pulmonary priblems can come to the office sooner. Objective Vital Signs - 12hr 02/24/19 02/24/19 02/24/19 04:00 08:00 08:30 Temperature 98.1 F 98.4 F Pulse Rate 71 Pulse Rate [ 81 81 Apical] Respiratory 16 16 Rate Blood Pressure 102/62 102/62 110/61 O2 Sat by Pulse 98 98 Oximetry 02/24/19 02/24/19 02/24/19 08:45 09:00 09:15 Temperature Pulse Rate 74 71 75 Pulse Rate [ Apical] Respiratory Rate Blood Pressure 111/59 112/46 119/67 O2 Sat by Pulse Oximetry 02/24/19 02/24/19 02/24/19 09:30 09:45 09:59 Temperature Pulse Rate 75 75 Pulse Rate [ Apical] Respiratory Rate Blood Pressure 121/60 126/59 89/42 O2 Sat by Pulse Oximetry 02/24/19 02/24/19 02/24/19 10:00 10:15 10:30 Temperature Pulse Rate 74 75 72 Pulse Rate [ Apical] Respiratory Rate Blood Pressure 110/60 113/58 108/62 O2 Sat by Pulse Oximetry 02/24/19 02/24/19 02/24/19 10:45 11:00 11:15 Temperature Pulse Rate 73 73 72 Pulse Rate [ Apical] Respiratory Rate Blood Pressure 123/66 127/69 138/69 O2 Sat by Pulse Oximetry 02/24/19 02/24/19 02/24/19 11:30 11:45 12:00 Temperature Pulse Rate 72 73 72 Pulse Rate [ Apical] Respiratory Rate Blood Pressure 130/66 123/70 131/69 O2 Sat by Pulse Oximetry 02/24/19 12:12 Temperature 98.4 F Pulse Rate 77 Pulse Rate [ Apical] Respiratory 16 Rate Blood Pressure 131/69 O2 Sat by Pulse Oximetry Constitutional: no acute distress, alert Eyes: non-icteric ENT: oropharynx dry, other (mallampati 2) Neck: supple, no lymphadenopathy Effort: mildly labored Ascultation: Bilateral: diminished breath sounds, rhonchi Percussion: Bilateral: not dull Cardiovascular: irregular rhythm, other Gastrointestinal: hypoactive bowel sounds, soft, non-tender, non-distended Integumentary: normal Extremities: no cyanosis, no edema, pink and warm, pulses normal, no ischemia or petechiae Neurologic: normal mental status, non-focal exam (grossly), pupils equal and round, motor strength normal and Psychiatric: mood appropriate, affect normal CBC and BMP: 02/22/19 05:10 02/24/19 05:31 Abnormal lab findings: Abnormal Labs 02/18/19 02/18/19 02/18/19 08:03 14:50 14:50 RBC Hgb Hct MCV 98 H MCH RDW 15.8 H Plt Count 118 L Lymph % (Auto) [place] % (Auto) Lymph # Seg Neutrophils % POC Potassium 3.4 L Sodium 136 L Potassium Chloride 95.8 L Carbon Dioxide 19 L POC BUN 37 H BUN 41 H Creatinine 8.2 H Glucose 139 H Calcium AST ALT Total Protein Albumin 02/19/19 02/19/19 02/20/19 07:53 07:53 03:22 RBC Hgb Hct MCV 98 H 102 H MCH 33 H 33 H RDW 15.7 H 16.9 H Plt Count 86 L 90 L Lymph % (Auto) 6.9 L [place] % (Auto) 7.9 H Lymph # 0.5 L Seg Neutrophils % 84.2 H POC Potassium Sodium Potassium 5.6 H Chloride Carbon Dioxide POC BUN BUN 53 H Creatinine 10.1 H Glucose Calcium AST 56 H ALT Total Protein Albumin 3.5 L 02/20/19 02/21/19 02/21/19 13:33 04:45 04:45 RBC 2.97 L Hgb 9.7 L Hct 28.9 L D MCV MCH 33 H RDW Plt Count 103 L Lymph % (Auto) 7.7 L [place] % (Auto) 8.7 H Lymph # 0.7 L Seg Neutrophils % 82.6 H POC Potassium Sodium 136 L Potassium Chloride 97.4 L 92.3 L Carbon Dioxide 20 L 21 L POC BUN BUN 33 H 46 H Creatinine 7.1 H 8.9 H Glucose 107 H 121 H Calcium 7.9 L AST ALT < 5 L Total Protein 5.9 L Albumin 3.3 L 02/22/19 02/22/19 02/23/19 05:10 05:10 05:00 RBC Hgb 9.0 L Hct 25.7 L MCV MCH RDW Plt Count Lymph % (Auto) [place] % (Auto) Lymph # Seg Neutrophils % POC Potassium Sodium 136 L Potassium 5.1 H Chloride 93.1 L 97.9 L Carbon Dioxide 20 L POC BUN BUN 51 H 26 H Creatinine 10.0 H 5.6 H Glucose 116 H Calcium AST ALT Total Protein Albumin 02/24/19 05:31 RBC Hgb Hct MCV MCH RDW Plt Count Lymph % (Auto) [place] % (Auto) Lymph # Seg Neutrophils % POC Potassium Sodium Potassium Chloride 97.7 L Carbon Dioxide POC BUN BUN 40 H Creatinine 7.5 H Glucose 114 H Calcium AST ALT Total Protein Albumin Allied health notes reviewed: nursing
--- NOTE | 2019-02-24 15:50 | Discharge Summary ---
Providers - Providers Date of Admission: 02/20/19 12:52 Date of discharge: 02/24/19 Attending physician: SHELTON MALDONADO 02/18/19 14:04 Consult to Physician [CONS] Routine Comment: Consulting Provider: KARINA CLARK Physician Instructions: Reason For Exam: ESRD on HD M/W/F 02/19/19 10:17 Consult to Physician [CONS] Routine Comment: known to you, post op comanagement Consulting Provider: JENA HARPER Physician Instructions: Reason For Exam: COPD, pulm HTN 02/20/19 12:49 Consult to Physician [CONS] Routine Comment: Consulting Provider: WISAM BARR Physician Instructions: Reason For Exam: tachycardia, heart block, irregular rhythm 02/20/19 12:50 Consult to Physician [CONS] Routine Comment: Consulting Provider: AMANDA FARIAS Physician Instructions: Reason For Exam: medical management 02/21/19 13:53 Physical Therapy Evaluation and Treat [CONS] Routine Comment: Reason For Exam: deconditioning Primary care physician: SHAMEKA BERGER Hospitalization Reason for admission: atrial fibrillation Pertinent studies: Upper GI series with air contrast, chest x-ray, pulmonary VQ scan, 2-D echocardiogram Hospital course: 58 YO Female with HTN, ESRD on HD(M,W,F), COPD, Chronic Respiratory Failure on 3L Home oxygen, Diastolic CHF, Pulmonary HTN, SDH admitted for elective laproscopic cholecystectomy. Pt subsequently developed acute onset of Atrial Fib with RVR complicated by cardiac decompensation with hypotension and altered mental status as well as Acute Hypoxemic respiratory failure following surgery. Pt discharged from surgical service and admitted to hospital medicine service for further Mx. Patient initiated on IV pressor support, amioderone, supplemental oxygen, nebulizer therapy, NIPPV and was admitted to ICU for further evaluation and management. Discharge diagnosis and management: / Acute on chronic respiratory failure with hypoxia Pulmonary team consulted, Placed on supplemental oxygen, nebulizer therapy, NIPPV as clinically indicated and weaned off, Patient now at baseline, discharged home in stable condition / Atrial fibrillation Cardiology consulted, s/p amioderone, preserved EF on 2d Echo, Converted to NSR, cont metoprolol if BP tolerates No indication for initiation of systemic AC at this time. /Hypotension, weaned off pressor as tolerated - s/p low dose dopamin - held bp meds and given 500ml NS - midodrine ordered as needed /Metabolic Acidosis due to ESRD treated with dialysis as per renal team, / ESRD (end stage renal disease) Nephrology consulted in ED for dialysis / HTN (hypertension) stable with metoprolol /S/p cholecystectomy, surgery following / DVT prophylaxis SCD to BLE while in bed. Disposition: home Physical exam: General appearance: Present: no distress, - EENT Eyes: Present: PERRL ENT: hearing intact, clear oral mucosa - Neck Neck: Present: supple, normal ROM - Respiratory Respiratory: bilateral: diminished, wheezing - Cardiovascular Rhythm: irregularly irregular - Extremities Extremities: pulses symmetrical, No edema Peripheral Pulses: within normal limits - Abdominal General gastrointestinal: Present: soft, non-tender, non-distended, normal bowel sounds Female genitourinary: Present: normal - Integumentary Integumentary: Present: clear, warm, dry - Musculoskeletal Musculoskeletal: generalized weakness - Psychiatric Psychiatric: no appropriate mood/affect, no intact judgment & insight, no memory intact - Neurologic Neurologic: CNII-XII intact, moves all extremities, no gait normal Disposition: [id number]/TX-06 HOME UNDER HOME HLTH Time spent for discharge: 34 minutes Core Measure Documentation - Palliative Care Palliative Care/ Comfort Measures: Not Applicable - Core Measures Any of the following diagnoses?: history only Exam - Constitutional Vitals: Temp Pulse Resp BP Pulse Ox 98.4 F 77 16 131/69 98 02/24/19 12:12 02/24/19 12:12 02/24/19 12:12 02/24/19 12:12 02/24/19 12:00 Plan Activity: advance as tolerated Weight Bearing Status: Non-Weight Bearing Diet: low fat, renal Wound: keep clean and dry Special Instructions: restrict fluid intake to (1.2 L per day), record daily BP diary Follow up with: SHAMEKA BERGER MD [Primary Care Provider] - 7 Days Prescriptions: Aspirin EC 81 mg PO QDAY #30 tablet.
[2019-02-24] MEDS ORDERED: PROAMATINE PO SCH (16:00)
[2019-02-24] MEDS: TYLENOL PO PRN (16:01)
== END 2019-02-24 18:20 | disposition home health service (06) | DRG 417 ==
LOC: OR 06:39 → 4A 12:52 → IMCU 15:17 → OBSVTOIN 02-20 12:52 → CC1 02-20 17:28 → IMCU 02-22 13:21
PROVIDERS: ADMIT Surgery; ATTEND Internal Medicine
PROC: 0FT44ZZ Resection of Gallbladder, Percutaneous Endoscopic Approach (ICD-10-PCS; principal; 2019-02-18)
PROC: 8E0W4CZ Robotic Assisted Procedure of Trunk Region, Percutaneous Endoscopic Approach (ICD-10-PCS; 2019-02-18)
PROC: 5A09357 Assistance with Respiratory Ventilation, Less than 24 Consecutive Hours, Continuous Positive Airway Pressure (ICD-10-PCS; 2019-02-18)
PROC: 0W9G4ZZ Drainage of Peritoneal Cavity, Percutaneous Endoscopic Approach (ICD-10-PCS; 2019-02-18)
PROC: 5A1D70Z Performance of Urinary Filtration, Intermittent, Less than 6 Hours Per Day (ICD-10-PCS; 2019-02-19)
PROC: 06HY33Z Insertion of Infusion Device into Lower Vein, Percutaneous Approach (ICD-10-PCS; 2019-02-20)
PROC: B54BZZA Ultrasonography of Right Lower Extremity Veins, Guidance (ICD-10-PCS; 2019-02-20)
PROC: 5A1D70Z Performance of Urinary Filtration, Intermittent, Less than 6 Hours Per Day (ICD-10-PCS; 2019-02-22)
PROC: 5A1D70Z Performance of Urinary Filtration, Intermittent, Less than 6 Hours Per Day (ICD-10-PCS; 2019-02-24)
DX: K80.10 Calculus of gallbladder with chronic cholecystitis without obstruction (principal); A41.9 Sepsis, unspecified organism; N18.6 End stage renal disease; J96.21 Acute and chronic respiratory failure with hypoxia; I50.33 Acute on chronic diastolic (congestive) heart failure; R65.20 Severe sepsis without septic shock; I48.1 Persistent atrial fibrillation; I27.0 Primary pulmonary hypertension; I12.0 Hypertensive chronic kidney disease with stage 5 chronic kidney disease or end stage renal disease; Z94.0 Kidney transplant status; N25.81 Secondary hyperparathyroidism of renal origin; I42.9 Cardiomyopathy, unspecified; E87.2 Acidosis; K91.61 Intraoperative hemorrhage and hematoma of a digestive system organ or structure complicating a digestive system procedure; J44.1 Chronic obstructive pulmonary disease with (acute) exacerbation; I42.2 Other hypertrophic cardiomyopathy; E78.00 Pure hypercholesterolemia, unspecified; J98.4 Other disorders of lung; D63.1 Anemia in chronic kidney disease; D69.6 Thrombocytopenia, unspecified; Y83.8 Other surgical procedures as the cause of abnormal reaction of the patient, or of later complication, without mention of misadventure at the time of the procedure; R73.9 Hyperglycemia, unspecified; K21.9 Gastro-esophageal reflux disease without esophagitis; Z95.0 Presence of cardiac pacemaker; Z86.718 Personal history of other venous thrombosis and embolism; Z99.2 Dependence on renal dialysis; Z99.81 Dependence on supplemental oxygen; Z88.6 Allergy status to analgesic agent; Z88.8 Allergy status to other drugs, medicaments and biological substances; Z79.51 Long term (current) use of inhaled steroids; Z79.899 Other long term (current) drug therapy
CPT/HCPCS: 36415; 71045; 74247; 78582; 80048; 80053; 82803; 85014; 85018; 85025; 85027; 86850; 86900; 86901; 88304; 93005; 93010; 93306; 94640; 94660; 94760; G0378; A4217; A9270-GY; A9540; A9558; C9113; J0282; J0690; J1170; J1265; J1650; J1885; J2270; J2370; J2405; J2704; J3010; J7030; J7040; J7060; P9047

== ENCOUNTER 2019-03-02 03:54 | Inpatient (IN) | payer MEDICARE ==
[2019-03-02] MEDS ORDERED: ZOFRAN IV ONE (03:59)
[2019-03-02] MEDS ORDERED: ZOFRAN ONE (04:02)
[2019-03-02] MEDS ORDERED: MORPHINE IV ONE ×2 (04:17→05:57)
[2019-03-02] MEDS ORDERED: MORPHINE ONE ×2 (04:17→06:00)
--- NOTE | 2019-03-02 04:20 | Emergency Department Report ---
ED Abdominal Pain HPI - General Chief Complaint: Abdominal Pain Stated Complaint: ABD PAIN Time Seen by Provider: 03/02/19 04:13 Source: patient, EMS Mode of arrival: Stretcher Limitations: Language Barrier - History of Present Illness Initial Comments: Patient is 58 years old female with history of end-stage renal disease on hemodialysis. Patient presented with right upper quadrant and lower abdominal pain started after she finishes had dialysis today. They're associated with nausea and vomiting. Patient had a recent cholecystectomy 1 week ago. Patient denied any diarrhea, hematemesis hematochezia or hematuria. Denies any fever or chills. MD Complaint: abdominal pain -: Last night Location: RUQ Radiation: none Migration to: no migration Severity: moderate Severity scale (0 -10): 5 Quality: sharp - Related Data Home Medications Medication Instructions Recorded Confirmed Last Taken Sertraline [Zoloft] 1 tab PO DAILY 02/22/16 02/18/19 02/17/19 21:00 ALBUTEROL Inhaler (OR & NICU) 2 puff IH QID PRN 02/17/19 02/18/19 02/17/19 09:00 [ProAir HFA Inhaler] AtorvaSTATin [Lipitor] 20 mg PO QHS 02/17/19 02/18/19 02/17/19 21:00 Dexlansoprazole [Dexilant] 60 mg PO QDAY 02/17/19 02/18/19 02/16/19 09:00 Fluticasone (Nf) [Flovent 220 2 puff IH BID 02/17/19 02/18/19 02/17/19 09:00 MCG/PUFF HFA] Loratadine [Claritin] 10 mg PO DAILY 02/17/19 02/18/19 02/17/19 10:00 Pregabalin [Lyrica] 50 mg PO DAILY 02/17/19 02/17/19 Unknown Tadalafil [Cialis] 20 mg PO BID 02/17/19 02/18/19 Unknown Zolpidem [Ambien] 10 mg PO QHS 02/17/19 02/18/19 02/17/19 21:00 hydrOXYzine HCL [Atarax] 25 mg PO Q6HR PRN 02/17/19 02/18/19 02/17/19 12:00 Previous Rx's Medication Instructions Recorded Last Taken Type ALBUTEROL NEB's [Proventil 0.083% 2.5 mg IH TID PRN #120 nebu 09/25/17 02/18/19 07:55 Rx NEBS] Aspirin EC 81 mg PO QDAY #30 tablet. 02/23/19 Unknown Rx Midodrine [Proamatine] 5 mg PO TID@0800,1200,1600 #30 02/24/19 Unknown Rx tablet Allergies Allergy/AdvReac Type Severity Reaction Status Date / Time heparin Allergy Intermediate Itching Verified 02/17/19 13:44 lisinopril AdvReac Mild COUGH Verified 02/17/19 13:44 ED Review of Systems ROS: Stated complaint: ABD PAIN Other details as noted in HPI Comment: All other systems reviewed and negative Constitutional: denies: chills, fever ENT: denies: throat pain Respiratory: denies: cough, orthopnea, shortness of breath, SOB with exertion, SOB at rest, wheezing Cardiovascular: denies: chest pain, palpitations Gastrointestinal: abdominal pain, nausea, vomiting. denies: diarrhea, constipation, hematemesis, melena, hematochezia Musculoskeletal: denies: back pain Neurological: denies: headache, weakness ED Past Medical Hx - Past Medical History Hx Hypertension: Yes (2008) Hx Heart Attack/AMI: No Hx Congestive Heart Failure: Yes Hx Diabetes: No Hx Deep Vein Thrombosis: No Hx GERD: Yes (SOMETIMES) Hx Liver Disease: No Hx Renal Disease: Yes Hx Sickle Cell Disease: No Hx Arthritis: Yes Hx Kidney Stones: No Hx Asthma: No Hx COPD: Yes (3L O2) Hx HIV: No Additional medical history: dialysis M, W, F - Surgical History Hx Coronary Stent: No Hx Open Heart Surgery: No Hx Pacemaker: Yes Hx Internal Defibrillator: No Hx Cholecystectomy: No Hx Appendectomy: No - Social History Smoking Status: Never Smoker Substance Use Type: None - Medications Home Medications: Home Medications Medication Instructions Recorded Confirmed Last Taken Type Sertraline [Zoloft] 1 tab PO DAILY 02/22/16 02/18/19 02/17/19 21:00 History ALBUTEROL NEB's [Proventil 0.083% 2.5 mg IH TID PRN #120 nebu 09/25/17 02/18/19 02/18/19 07:55 Rx NEBS] ALBUTEROL Inhaler (OR & NICU) 2 puff IH QID PRN 02/17/19 02/18/19 02/17/19 09:00 History [ProAir HFA Inhaler] AtorvaSTATin [Lipitor] 20 mg PO QHS 02/17/19 02/18/19 02/17/19 21:00 History Dexlansoprazole [Dexilant] 60 mg PO QDAY 02/17/19 02/18/19 02/16/19 09:00 History Fluticasone (Nf) [Flovent 220 2 puff IH BID 02/17/19 02/18/19 02/17/19 09:00 History MCG/PUFF HFA] Loratadine [Claritin] 10 mg PO DAILY 02/17/19 02/18/19 02/17/19 10:00 History Pregabalin [Lyrica] 50 mg PO DAILY 02/17/19 02/17/19 Unknown History Tadalafil [Cialis] 20 mg PO BID 02/17/19 02/18/19 Unknown History Zolpidem [Ambien] 10 mg PO QHS 02/17/19 02/18/19 02/17/19 21:00 History hydrOXYzine HCL [Atarax] 25 mg PO Q6HR PRN 02/17/19 02/18/19 02/17/19 12:00 History Aspirin EC 81 mg PO QDAY #30 tablet. 02/23/19 Unknown Rx Midodrine [Proamatine] 5 mg PO TID@0800,1200,1600 #30 02/24/19 Unknown Rx tablet ED Physical Exam - General Limitations: Language Barrier General appearance: alert, in no apparent distress - Head Head exam: Present: atraumatic, normocephalic, normal inspection - Eye Eye exam: Present: normal appearance, PERRL - ENT ENT exam: Present: normal exam, normal orophraynx, mucous membranes moist - Neck Neck exam: Present: normal inspection, full ROM. Absent: tenderness, meningismus, lymphadenopathy, thyromegaly - Respiratory Respiratory exam: Present: normal lung sounds bilaterally - Cardiovascular Cardiovascular Exam: Present: regular rate, normal rhythm, normal heart sounds - GI/Abdominal GI/Abdominal exam: Present: soft, normal bowel sounds. Absent: distended, tenderness, guarding, rebound, rigid, organomegaly, mass, bruit, pulsatile mass, hernia - Extremities Exam Extremities exam: Present: normal inspection, full ROM, normal capillary refill - Back Exam Back exam: Present: normal inspection, full ROM - Neurological Exam Neurological exam: Present: alert, oriented X3, CN II-XII intact - Skin Skin exam: Present: warm, intact, normal color ED Course Vital Signs 03/02/19 03:56 Temperature 98.6 F Pulse Rate 86 Respiratory 12 Rate Blood Pressure 182/90 O2 Sat by Pulse 93 Oximetry ED Medical Decision Making - Lab Data Result diagrams: 03/02/19 04:15 03/02/19 04:14 - EKG Data -: EKG Interpreted by Ri EKG shows normal: sinus rhythm Rate: normal - EKG Data Interpretation: no acute changes - Radiology Data Radiology results: report reviewed CT abdomen and pelvis showed acute pancreatitis. - Medical Decision Making Patient is 58 years old female with history of end-stage renal disease on hemodialysis. Patient presented with right upper quadrant and lower abdominal pain started after she finishes had dialysis today. They're associated with nausea and vomiting. Patient had a recent cholecystectomy 1 week ago. Patient denied any diarrhea, hematemesis hematochezia or hematuria. Denies any fever or chills. Patient labs reviewed and showed a lipase of more than 2000. The abdomen and pelvis showed inflammation in the pancreas consistent with acute pancreatitis. Critical care attestation.: If time is entered above; I have spent that time in minutes in the direct care of this critically ill patient, excluding procedure time. ED Disposition Clinical Impression: Abdominal pain, Acute pancreatitis, Nausea and vomiting Disposition: OP ADMIT IP TO THIS HOSP Is pt being admited?: Yes Condition: Stable Instructions: Abdominal Pain (ED) Referrals: PRIMARY CARE, [Primary Care Provider] - 3-5 Days
[2019-03-02 04:28] LABS: Basophils # (Auto) 0.1 K/mm3 (0.0-0.1); Basophils % (Auto) 0.7 % (0.0-1.8); Eosinophils # (Auto) 0.1 K/mm3 (0.0-0.4); Eosinophils % (Auto) 0.8 % (0.0-4.3); Hematocrit 30.9 % (30.3-42.9); Hemoglobin 10.3 gm/dl (10.1-14.3); Lymphocytes # (Auto) 0.6 K/mm3 (1.2-5.4); Lymphocytes % (Auto) 7.9 % (13.4-35.0); Mean Corpuscular HGB Conc 33 % (30-34); Mean Corpuscular Volume 94 fl (79-97); Monocytes # (Auto) 0.5 K/mm3 (0.0-0.8); Monocytes % (Auto) 6.2 % (0.0-7.3); Platelet Count 175 K/mm3 (140-440); Red Blood Count 3.29 M/mm3 (3.65-5.03)
[2019-03-02 04:52] LABS: Albumin 3.7 g/dL (3.9-5); BUN/Creatinine Ratio 4; Blood Urea Nitrogen 23 mg/dL (7-17); Calcium 9.3 mg/dL (8.4-10.2); Hemolysis Index 4
[2019-03-02 04:55] LABS: Alanine Aminotransferase < 5 units/L (7-56)
--- NOTE | 2019-03-02 05:10 | Cat Scan Report ---
PROCEDURE: CT ABDOMEN PELVIS WO CON TECHNIQUE: Routine axial imaging was obtained of the abdomen and pelvis without oral or IV contrast. Sagittal and coronal reconstructions were reviewed. HISTORY: ABDOMINAL PAIN COMPARISONS: 09/27/2017 FINDINGS: The lung bases reveal stable chronic changes. The heart is mild to moderately enlarged. There is a sm all pericardial effusion. There is a small hiatal hernia. The gallbladder is contracted. There are several stones in the gallbladder. The biliary tree is not d ilated. The liver is normal in size. The spleen is at the upper limits of normal in size. There are diffuse inflammatory changes at the level of the head of the pancreas and duodenum. How muc h of findings related to 12 minus and/or pancreatitis is uncertain. There is reticulation of the louie nephric fat on the right side as well and around the duodenum in the retroperitoneum. The body and ta il the pancreas are unremarkable. The abdominal aorta is normal in caliber. The bowel loops otherwise are normal in caliber. There are uncomplicated diverticula in the descending and sigmoid colon. The appendix is not seen with certainty. There is a small amount of free fluid in the pelvis. The uterus and bladder appear normal. There is a stable soft tissue lesion in the lateral aspect of the right side of the pelvis containing coarse calcifications measuring 4.4 cm x 3.2 cm x 6.4 cm. The etiology of this is uncertain. An area of chronic fat necrosis cannot be exclude. Once again it is unchanged from the previous study. The s keletal structures reveal mild arthritic changes in the lumbar spine. The kidneys are extremely atrop hic. The uterus and bladder are unremarkable. IMPRESSION: Diffuse inflammatory changes at the level of the head of the pancreas and second and third portions o f the duodenum. How much of the findings are related to pancreatitis and/or duodenitis is uncertain. Contracted gallbladder containing several stones. No evidence of biliary tree dilatation. Severely atrophic kidneys. Chronic changes in both lung bases. Cardiomegaly.. Small hiatal hernia. Minimal ascites in the pelvis. Uncomplicated diverticula in the descending and sigmoid colon. Stable soft tissue lesion in the right side of pelvis with diffuse coarse calcifications as described . Whether this represents an area of chronic fat necrosis or calcified hematoma is uncertain. . Asymmetric subcutaneous edema along the right side of the abdominal wall which is of uncertain etio logy. Clinical correlation whether the patient has an abdominal wall cellulitis along this area. This document is electronically signed by Aston Queen MD., Mar 02 2019 05:07:26 AM ET
[2019-03-02] MEDS ORDERED: TYLENOL PO PRN (06:01)
[2019-03-02] MEDS ORDERED: SODIUM CHLORIDE FLUSH SYRINGE 10 ML IV PRN (06:01)
[2019-03-02] MEDS ORDERED: ZOFRAN IV PRN (06:01)
--- NOTE | 2019-03-02 06:06 | History and Physical Report ---
History of Present Illness Date of examination: 03/02/19 History of present illness: 58 year old woman with history of HTN, ESRD on HD COPD, Chronic Respiratory Failure on 3L Home oxygen, Diastolic CHF, Pulmonary HTN, Paroxysmal atrial fibrillation, s/p laparoscopic cholecystectomy on February 18 emergency room today with complaints of abdominal pain that started yesterday. Pain is in the epigastric area which she describes a sharp pain, constant, intensity 6/10, no radiation, relieved with IV morphine given in the emergency room. Admits to nausea vomiting Review of systems Constitutional: no weight loss, chills, fever Ears, eyes, nose, mouth and throat: no nasal congestion, no nasal discharge, no sinus pressure, no vision change, no red eye. Neck: No neck pain or rigidity. Cardiovascular: no palpitations, chest pain Respiratory: no cough, shortness of breath Gastrointestinal: no hematochezia Genitourinary : no frequency , no hematuria Musculoskeletal: no joint swelling or muscle ache Integumentary: no rash, no pruritis Neurological: no parathesias, no focal weakness Endocrine: no cold or heat intolerance, no polyuria or polydipsia Hematologic/Lymphatic: no easy bruising, no easy bleeding, no gland swelling Allergic/Immunologic: no urticaria, no angioedema. PAST MEDICAL HISTORY:HTN, ESRD on HD COPD, Chronic Respiratory Failure on 3L Home oxygen, Diastolic CHF, Pulmonary HTN, atrial fibrillation PAST SURGICAL HISTORY: Cholecystectomy, pacemaker SOCIAL HISTORY: Denies alcohol, drugs, tobacco FAMILY HISTORY: Hypertension Medications and Allergies Allergies Allergy/AdvReac Type Severity Reaction Status Date / Time heparin Allergy Intermediate Itching Verified 02/17/19 13:44 lisinopril AdvReac Mild COUGH Verified 02/17/19 13:44 Home Medications Medication Instructions Recorded Confirmed Last Taken Type Sertraline [Zoloft] 1 tab PO DAILY 02/22/16 02/18/19 02/17/19 21:00 History ALBUTEROL NEB's [Proventil 0.083% 2.5 mg IH TID PRN #120 nebu 09/25/17 02/18/19 02/18/19 07:55 Rx NEBS] ALBUTEROL Inhaler (OR & NICU) 2 puff IH QID PRN 02/17/19 02/18/19 02/17/19 09:00 History [ProAir HFA Inhaler] AtorvaSTATin [Lipitor] 20 mg PO QHS 02/17/19 02/18/19 02/17/19 21:00 History Dexlansoprazole [Dexilant] 60 mg PO QDAY 02/17/19 02/18/19 02/16/19 09:00 History Fluticasone (Nf) [Flovent 220 2 puff IH BID 02/17/19 02/18/19 02/17/19 09:00 History MCG/PUFF HFA] Loratadine [Claritin] 10 mg PO DAILY 02/17/19 02/18/19 02/17/19 10:00 History Pregabalin [Lyrica] 50 mg PO DAILY 02/17/19 02/17/19 Unknown History Tadalafil [Cialis] 20 mg PO BID 02/17/19 02/18/19 Unknown History Zolpidem [Ambien] 10 mg PO QHS 02/17/19 02/18/19 02/17/19 21:00 History hydrOXYzine HCL [Atarax] 25 mg PO Q6HR PRN 02/17/19 02/18/19 02/17/19 12:00 History Aspirin EC 81 mg PO QDAY #30 tablet. 02/23/19 Unknown Rx Midodrine [Proamatine] 5 mg PO TID@0800,1200,1600 #30 02/24/19 Unknown Rx tablet Active Meds: Active Medications Acetaminophen (Tylenol) 650 mg PO Q4H PRN PRN Reason: Pain MILD(1-3)/Fever >100.5/TURNER Morphine Sulfate (Morphine) 2 mg IV Q4H PRN PRN Reason: Pain, Moderate (4-6) Ondansetron HCl (Zofran) 4 mg IV Q8H PRN PRN Reason: Nausea And Vomiting Sodium Chloride (Sodium Chloride Flush Syringe 10 Ml) 10 ml IV BID CATHY Sodium Chloride (Sodium Chloride Flush Syringe 10 Ml) 10 ml IV PRN PRN PRN Reason: LINE FLUSH Exam - Physical Exam Narrative exam: General Apperance: The patient lying in bed, breathing comfortable HEENT: Normocephalic, atraumatic. Pupils equally round and reactive to light, EOMI, no sclericterus or JVD or thyromegaly or nodule. , no carotid bruit, mucous membranes moist, no exudate or erythema Heart: S1-S2, regular is rhythm Lungs: Clear to auscultation bilaterally, breathing comfortable Abdomen: Positive bowel sounds, soft, tender in the epigastric area, nondistended, no organomegaly Extremities: No edema cyanosis clubbing Skin: no rash, nodule, warm and dry Neuro: cranial nerves 2-12 intact, speech is fluent, motor/sensory intact - Constitutional Vitals: Temp Pulse Resp BP Pulse Ox 98.6 F 71 17 123/66 98 03/02/19 03:56 03/02/19 05:44 03/02/19 05:44 03/02/19 05:44 03/02/19 05:44 Results - Labs CBC & Chem 7: 03/02/19 04:15 03/02/19 04:14 Labs: Abnormal lab results 03/02/19 03/02/19 Range/Units 04:14 04:15 RBC 3.29 L (3.65-5.03) M/mm3 Lymph % (Auto) 7.9 L (13.4-35.0) % Lymph # 0.6 L (1.2-5.4) K/mm3 Seg Neutrophils % 84.4 H (40.0-70.0) % Chloride 94.9 L (98-107) mmol/L BUN 23 H (7-17) mg/dL Creatinine 5.4 H (0.7-1.2) mg/dL Glucose 114 H (65-100) mg/dL ALT < 5 L (7-56) units/L Albumin 3.7 L (3.9-5) g/dL Lipase 2119 H (13-60) units/L - Imaging and Cardiology CT scan - abdomen: report reviewed CT scan - pelvis: report reviewed Assessment and Plan Assessment Acute pancreatitis/duodenitis Hypertension ESRD on HD COPD, Diastolic CHF Pulmonary HTN Paroxysmal atrial fibrillation Plan Admit to medicine Liquid diet,check lipid panel,consult GI Consult renal for dialysis, start IV morphine Continue appropriate outpatient medications DVT prophylaxis
[2019-03-02 06:30] LABS: Chol/HDL Ratio 4.8 %
[2019-03-02] MEDS: ZOFRAN IV PRN ×2 (09:29→18:27)
[2019-03-02] MEDS: MORPHINE IV PRN ×3 (09:29→22:29)
[2019-03-02] MEDS: SODIUM CHLORIDE FLUSH SYRINGE 10 ML IV SCH ×2 (09:29→22:29)
--- NOTE | 2019-03-02 09:57 | Gastroenterology Consultation ---
History of Present Illness - Reason for Consult Consult date: 03/02/19 acute pancreatitis Requesting physician: SHELTON MALDONADO - History of Present Illness Pt is a 58 yo female who presents with right sided/epigastric abdominal pain since yesterday with associated n/v. Pt found to have acute pancreatitis on admission. CT scan shows duodenitis along with pancreatitis; lipase > 2000k. Denies alcohol use. h/o esrd and copd on home O2. pt with robotic ccy within the past few weeks due to symptomatic cholethiasis; however ct scan on admission mentions contracted GB with stones. no biliary dilatation and liver enzymes wnl. Past History Past Medical History: COPD, dialysis, ESRD Past Surgical History: cholecystectomy Social history: no significant social history Family history: no significant family history Medications and Allergies Allergies Allergy/AdvReac Type Severity Reaction Status Date / Time heparin Allergy Intermediate Itching Verified 02/17/19 13:44 lisinopril AdvReac Mild COUGH Verified 02/17/19 13:44 Home Medications Medication Instructions Recorded Confirmed Last Taken Type Sertraline [Zoloft] 1 tab PO DAILY 02/22/16 02/18/19 02/17/19 21:00 History ALBUTEROL NEB's [Proventil 0.083% 2.5 mg IH TID PRN #120 nebu 09/25/17 02/18/19 02/18/19 07:55 Rx NEBS] ALBUTEROL Inhaler (OR & NICU) 2 puff IH QID PRN 02/17/19 02/18/19 02/17/19 09:00 History [ProAir HFA Inhaler] AtorvaSTATin [Lipitor] 20 mg PO QHS 02/17/19 02/18/19 02/17/19 21:00 History Dexlansoprazole [Dexilant] 60 mg PO QDAY 02/17/19 02/18/19 02/16/19 09:00 History Fluticasone (Nf) [Flovent 220 2 puff IH BID 02/17/19 02/18/19 02/17/19 09:00 History MCG/PUFF HFA] Loratadine [Claritin] 10 mg PO DAILY 02/17/19 02/18/19 02/17/19 10:00 History Pregabalin [Lyrica] 50 mg PO DAILY 02/17/19 02/17/19 Unknown History Tadalafil [Cialis] 20 mg PO BID 02/17/19 02/18/19 Unknown History Zolpidem [Ambien] 10 mg PO QHS 02/17/19 02/18/19 02/17/19 21:00 History hydrOXYzine HCL [Atarax] 25 mg PO Q6HR PRN 02/17/19 02/18/19 02/17/19 12:00 History Aspirin EC 81 mg PO QDAY #30 tablet. 02/23/19 Unknown Rx Midodrine [Proamatine] 5 mg PO TID@0800,1200,1600 #30 02/24/19 Unknown Rx tablet Active Meds: Active Medications Acetaminophen (Tylenol) 650 mg PO Q4H PRN PRN Reason: Pain MILD(1-3)/Fever >100.5/TURNER Morphine Sulfate (Morphine) 2 mg IV Q4H PRN PRN Reason: Pain, Moderate (4-6) Last Admin: 03/02/19 09:29 Dose: 2 mg Documented by: Ondansetron HCl (Zofran) 4 mg IV Q4H PRN PRN Reason: Nausea And Vomiting Last Admin: 03/02/19 09:29 Dose: 4 mg Documented by: Sodium Chloride (Sodium Chloride Flush Syringe 10 Ml) 10 ml IV BID CAHTY Last Admin: 03/02/19 09:29 Dose: 10 ml Documented by: Sodium Chloride (Sodium Chloride Flush Syringe 10 Ml) 10 ml IV PRN PRN PRN Reason: LINE FLUSH Reviewed/updated patient's home and current medications Review of Systems - Review of Systems All systems: negative (per HPI) Exam - Constitutional Vital Signs: Temp Pulse Resp BP Pulse Ox 98.5 F 67 20 141/72 96 03/02/19 08:35 03/02/19 08:35 03/02/19 08:35 03/02/19 08:35 03/02/19 08:35 General appearance: no acute distress - EENT Eyes: PERRL, EOM intact - Neck Neck: supple, normal ROM - Respiratory Respiratory effort: normal Respiratory: bilateral: CTA, wheezing - Cardiovascular Rhythm: regular Heart Sounds: Present: S1 & S2 Extremities: No edema - Gastrointestinal General gastrointestinal: Present: soft, tender (right sided/epigastric ttp, ), non-distended, normal bowel sounds - Integumentary Integumentary: Present: clear, warm - Neurologic Neurological: alert and oriented x3 - Psychiatric Psychiatric: appropriate mood/affect - Labs CBC & Chem 7: 03/02/19 04:15 03/02/19 04:14 Lab Results: Laboratory Results - last 24 hr 03/02/19 03/02/19 03/02/19 04:14 04:15 06:08 WBC 8.1 RBC 3.29 L Hgb 10.3 Hct 30.9 MCV 94 MCH 31 MCHC 33 RDW 15.0 Plt Count 175 Lymph % (Auto) 7.9 L Cook % (Auto) 6.2 Eos % (Auto) 0.8 Baso % (Auto) 0.7 Lymph # 0.6 L Cook # 0.5 Eos # 0.1 Baso # 0.1 Seg Neutrophils % 84.4 H Seg Neutrophils # 6.8 Sodium 140 Potassium 3.7 Chloride 94.9 L Carbon Dioxide 27 Anion Gap 22 BUN 23 H Creatinine 5.4 H Estimated GFR 8 BUN/Creatinine Ratio 4 Glucose 114 H Calcium 9.3 Total Bilirubin 0.50 AST 17 ALT < 5 L Alkaline Phosphatase 72 Total Protein 6.8 Albumin 3.7 L Albumin/Globulin Ratio 1.2 Triglycerides 225 H Cholesterol 173 LDL Cholesterol Direct 96 HDL Cholesterol 36 L Cholesterol/HDL Ratio 4.80 Lipase 2119 H - Imaging CT Scan: report reviewed Assessment and Plan 1. Acute pancreatitis - recent CCY however ct scan read as GB with stones; no biliary dilatation and liver enzymes normal. no alcohol history and triglyceridesa mildly elevated; given stones, likely with biliary pancreatitis. vitals stable and non-toxic appearing. pt with esrd so would need to be cautious regarding IVF's unless there is a change clinically which would warrant aggressive IVF's -will obtain RUQ US 2. Duodenitis - ? secondary to pancreatitis. monitor symptoms for time being. consider EGD based on progress 3. ESRD 4. COPD
--- NOTE | 2019-03-02 10:19 | Consultation ---
History of Present Illness - Reason for Consult Consult date: 03/02/19 end stage renal disease Requesting physician: ISAIAS GOEL - History of Present Illness Patient is 58 years old female with history of end-stage renal disease on hemodialysis. Patient presented with right upper quadrant and lower abdominal pain started after she finishes had dialysis today. They're associated with nausea and vomiting. Patient had a recent cholecystectomy 1 week ago. Patient denied any diarrhea, hematemesis hematochezia or hematuria. Denies any fever or chills. MD Complaint: abdominal pain -: Last night Location: RUQ Radiation: none Migration to: no migration Severity: moderate Severity scale (0 -10): 5 Quality: sharp ROS: Stated complaint: ABD PAIN Other details as noted in HPI Comment: All other systems reviewed and negative Constitutional: denies: chills, fever ENT: denies: throat pain Respiratory: denies: cough, orthopnea, shortness of breath, SOB with exertion, SOB at rest, wheezing Cardiovascular: denies: chest pain, palpitations Gastrointestinal: abdominal pain, nausea, vomiting. denies: diarrhea, constipation, hematemesis, melena, hematochezia Musculoskeletal: denies: back pain Neurological: denies: headache, weakness - Past Medical History Hx Hypertension: Yes (2008) Hx Heart Attack/AMI: No Hx Congestive Heart Failure: Yes Hx Diabetes: No Hx Deep Vein Thrombosis: No Hx GERD: Yes (SOMETIMES) Hx Liver Disease: No Hx Renal Disease: Yes Hx Sickle Cell Disease: No Hx Arthritis: Yes Hx Kidney Stones: No Hx Asthma: No Hx COPD: Yes (3L O2) Hx HIV: No Additional medical history: dialysis M, W, F - Surgical History Hx Coronary Stent: No Hx Open Heart Surgery: No Hx Pacemaker: Yes Hx Internal Defibrillator: No Hx Cholecystectomy: No Hx Appendectomy: No - Social History Smoking Status: Never Smoker Substance Use Type: None Medications and Allergies Allergies Allergy/AdvReac Type Severity Reaction Status Date / Time heparin Allergy Intermediate Itching Verified 02/17/19 13:44 lisinopril AdvReac Mild COUGH Verified 02/17/19 13:44 Home Medications Medication Instructions Recorded Confirmed Last Taken Type Sertraline [Zoloft] 1 tab PO DAILY 02/22/16 02/18/19 02/17/19 21:00 History ALBUTEROL NEB's [Proventil 0.083% 2.5 mg IH TID PRN #120 nebu 09/25/17 02/18/19 02/18/19 07:55 Rx NEBS] ALBUTEROL Inhaler (OR & NICU) 2 puff IH QID PRN 02/17/19 02/18/19 02/17/19 09:00 History [ProAir HFA Inhaler] AtorvaSTATin [Lipitor] 20 mg PO QHS 02/17/19 02/18/19 02/17/19 21:00 History Dexlansoprazole [Dexilant] 60 mg PO QDAY 02/17/19 02/18/19 02/16/19 09:00 History Fluticasone (Nf) [Flovent 220 2 puff IH BID 02/17/19 02/18/19 02/17/19 09:00 History MCG/PUFF HFA] Loratadine [Claritin] 10 mg PO DAILY 02/17/19 02/18/19 02/17/19 10:00 History Pregabalin [Lyrica] 50 mg PO DAILY 02/17/19 02/17/19 Unknown History Tadalafil [Cialis] 20 mg PO BID 02/17/19 02/18/19 Unknown History Zolpidem [Ambien] 10 mg PO QHS 02/17/19 02/18/19 02/17/19 21:00 History hydrOXYzine HCL [Atarax] 25 mg PO Q6HR PRN 02/17/19 02/18/19 02/17/19 12:00 History Aspirin EC 81 mg PO QDAY #30 tablet. 02/23/19 Unknown Rx Midodrine [Proamatine] 5 mg PO TID@0800,1200,1600 #30 02/24/19 Unknown Rx tablet Active Meds: Active Medications Acetaminophen (Tylenol) 650 mg PO Q4H PRN PRN Reason: Pain MILD(1-3)/Fever >100.5/TURNER Morphine Sulfate (Morphine) 2 mg IV Q4H PRN PRN Reason: Pain, Moderate (4-6) Last Admin: 03/02/19 09:29 Dose: 2 mg Documented by: Ondansetron HCl (Zofran) 4 mg IV Q4H PRN PRN Reason: Nausea And Vomiting Last Admin: 03/02/19 09:29 Dose: 4 mg Documented by: Sodium Chloride (Sodium Chloride Flush Syringe 10 Ml) 10 ml IV BID CATHY Last Admin: 03/02/19 09:29 Dose: 10 ml Documented by: Sodium Chloride (Sodium Chloride Flush Syringe 10 Ml) 10 ml IV PRN PRN PRN Reason: LINE FLUSH Exam - Vital Signs Vital signs: Vital Signs Temp Pulse Resp BP Pulse Ox 98.6 F 86 12 182/90 93 03/02/19 03:56 03/02/19 03:56 03/02/19 03:56 03/02/19 03:56 03/02/19 03:56 - Physical Exam Narrative exam: - General Limitations: Language Barrier General appearance: alert, in no apparent distress - Head Head exam: Present: atraumatic, normocephalic, normal inspection - Eye Eye exam: Present: normal appearance, PERRL - ENT ENT exam: Present: normal exam, normal orophraynx, mucous membranes moist - Neck Neck exam: Present: normal inspection, full ROM. Absent: tenderness, meningismus, lymphadenopathy, thyromegaly - Respiratory Respiratory exam: Present: normal lung sounds bilaterally - Cardiovascular Cardiovascular Exam: Present: regular rate, normal rhythm, normal heart sounds - GI/Abdominal GI/Abdominal exam: Present: soft, normal bowel sounds. Absent: distended, tenderness, guarding, rebound, rigid, organomegaly, mass, bruit, pulsatile mass, hernia - Extremities Exam Extremities exam: Present: normal inspection, full ROM, normal capillary refill - Back Exam Back exam: Present: normal inspection, full ROM - Neurological Exam Neurological exam: Present: alert, oriented X3, CN II-XII intact - Skin Skin exam: Present: warm, intact, normal color Results - Lab Results 03/02/19 04:15 03/02/19 04:14 Most recent lab results Calcium 9.3 mg/dL (8.4-10.2) 03/02/19 04:14 Assessment and Plan Impression * End-stage renal disease on maintenance hemodialysis * s/p Cholecystecomy for chronic cholecystitis * Hx of complete heart block --s/p permanent pacemaker placement * Hypertension * afib with RVR * hypotension * Anemia secondary to ESRD * Secondary hyperparathyroidism Recommendations * Continue hemodialysis on MWF * keep map >65 * UF as tolerated * Diet per surgery * Epogen with dialysis prn * No IV, BP of any puncture in her access arm
[2019-03-02] MEDS ORDERED: NACL 0.9% 100 ML IV PRN (10:20)
[2019-03-02] MEDS ORDERED: ALBURX 25% (ALBUMIN) IV PRN (10:20)
[2019-03-02] MEDS ORDERED: PROCRIT IV PRN (10:20)
--- NOTE | 2019-03-02 15:12 | Event Note ---
Date: 03/02/19 Patient seen and examined 58 year old woman with history of HTN, ESRD on HD COPD, Chronic Respiratory Failure on 3L Home oxygen, Diastolic CHF, Pulmonary HTN, Paroxysmal atrial fibrillation, s/p laparoscopic cholecystectomy on February 18 presented to the emergency room with complaints of abdominal pain and elevated lipase. GI and nephrology following. cont current Mx and plan
[2019-03-03 06:29] LABS: Basophils # (Auto) 0.1 K/mm3 (0.0-0.1); Basophils % (Auto) 1.1 % (0.0-1.8); Calcium 9.8 mg/dL (8.4-10.2); Eosinophils # (Auto) 0.2 K/mm3 (0.0-0.4); Eosinophils % (Auto) 3.6 % (0.0-4.3); Hemoglobin 10.4 gm/dl (10.1-14.3); Lymphocytes % (Auto) 18.1 % (13.4-35.0); Mean Corpuscular HGB Conc 34 % (30-34); Mean Corpuscular Volume 92 fl (79-97); Monocytes # (Auto) 0.5 K/mm3 (0.0-0.8); Platelet Count 177 K/mm3 (140-440); Red Blood Count 3.36 M/mm3 (3.65-5.03); Red Cell Distribution Width 14.7 % (13.2-15.2)
--- NOTE | 2019-03-03 08:08 | Ultrasound Report ---
ULTRASOUND ABDOMEN LIMITED: TECHNIQUE: Transabdominal ultrasound with color Doppler interrogation. HISTORY: Abdominal pain, pancreatitis, gallstones. COMPARISON: CT abdomen pelvis without contrast performed the same day. FINDINGS: LIVER: Normal. BILIARY SYSTEM: The gallbladder appears partially contracted and contains moderate sludge and a few small shadowing stones. No finding to suggest acute cholecystitis. The common bile duct is slightly dilated measuring 7 mm although no choledocholithiasis is demonstrated on ultrasound. PANCREAS: A 1 cm cyst is identified in the pancreatic head. The remainder of the pancreas is unremarkable. The inflammatory changes or hemorrhage near the pancreatic head/duodenum on CT is not clearly demonstrated on ultrasound. RIGHT KIDNEY: The right kidney is atrophic and echogenic measuring 6.5 cm. No obvious mass or hydronephrosis. PROXIMAL AORTA: Normal. ASCITES: None. IMPRESSION: Cholelithiasis. Mildly dilated common bile duct. Essentially unremarkable pancreas on ultrasound. 1 cm pancreatic head cyst. Atrophic right kidney. After reviewing the CT, consider a penetrating duodenal ulcer.
[2019-03-03] MEDS: MORPHINE IV PRN ×2 (09:27→21:18)
[2019-03-03] MEDS: SODIUM CHLORIDE FLUSH SYRINGE 10 ML IV SCH ×2 (09:28→21:32)
[2019-03-03] MEDS ORDERED: LOVENOX SUB-Q SCH (10:00)
--- NOTE | 2019-03-03 10:07 | Progress Note ---
Assessment and Plan Impression * End-stage renal disease on maintenance hemodialysis * s/p Cholecystecomy for chronic cholecystitis * Hx of complete heart block --s/p permanent pacemaker placement * Hypertension * afib with RVR * hypotension * Anemia secondary to ESRD * Secondary hyperparathyroidism Recommendations * Continue hemodialysis on MWF * keep map >65 * UF as tolerated * Diet per surgery/gi * Epogen with dialysis prn * No IV, BP of any puncture in her access arm Subjective Date of service: 03/03/19 Principal diagnosis: esrd Interval history: resting well in bed today Objective - Exam Narrative Exam: - General Limitations: Language Barrier General appearance: alert, in no apparent distress - Head Head exam: Present: atraumatic, normocephalic, normal inspection - Eye Eye exam: Present: normal appearance, PERRL - ENT ENT exam: Present: normal exam, normal orophraynx, mucous membranes moist - Neck Neck exam: Present: normal inspection, full ROM. Absent: tenderness, menin gismus, lymphadenopathy, thyromegaly - Respiratory Respiratory exam: Present: normal lung sounds bilaterally - Cardiovascular Cardiovascular Exam: Present: regular rate, normal rhythm, normal heart sounds - GI/Abdominal GI/Abdominal exam: Present: soft, normal bowel sounds. Absent: distended, tenderness, guarding, rebound, rigid, organomegaly, mass, bruit, pulsatile mass, hernia - Extremities Exam Extremities exam: Present: normal inspection, full ROM, normal capillary refill - Back Exam Back exam: Present: normal inspection, full ROM - Neurological Exam Neurological exam: Present: alert, oriented X3, CN II-XII intact - Skin Skin exam: Present: warm, intact, normal color - Vital Signs Vital signs: Vital Signs - 12hr 03/02/19 03/02/19 03/03/19 22:45 23:22 05:36 Temperature 98.8 F 98.7 F Pulse Rate 75 73 Respiratory 20 18 18 Rate Blood Pressure 112/70 120/65 O2 Sat by Pulse 94 94 Oximetry 03/03/19 09:57 Temperature Pulse Rate Respiratory Rate Blood Pressure O2 Sat by Pulse 97 Oximetry - Lab 03/03/19 05:55 03/03/19 05:55 Most recent lab results Calcium 9.8 mg/dL (8.4-10.2) 03/03/19 05:55 Medications & Allergies - Medications Allergies/Adverse Reactions: Allergies heparin Allergy (Intermediate, Verified 02/17/19 13:44) Itching lisinopril Adverse Reaction (Mild, Verified 02/17/19 13:44) COUGH Home Medications: Home Medications Medication Instructions Recorded Confirmed Last Taken Type Sertraline [Zoloft] 1 tab PO DAILY 02/22/16 02/18/19 02/17/19 21:00 History ALBUTEROL NEB's [Proventil 0.083% 2.5 mg IH TID PRN #120 nebu 09/25/17 02/18/19 02/18/19 07:55 Rx NEBS] ALBUTEROL Inhaler (OR & NICU) 2 puff IH QID PRN 02/17/19 02/18/19 02/17/19 09:00 History [ProAir HFA Inhaler] AtorvaSTATin [Lipitor] 20 mg PO QHS 02/17/19 02/18/19 02/17/19 21:00 History Dexlansoprazole [Dexilant] 60 mg PO QDAY 02/17/19 02/18/19 02/16/19 09:00 Histo ry Fluticasone (Nf) [Flovent 220 2 puff IH BID 02/17/19 02/18/19 02/17/19 09:00 History MCG/PUFF HFA] Loratadine [Claritin] 10 mg PO DAILY 02/17/19 02/18/19 02/17/19 10:00 History Pregabalin [Lyrica] 50 mg PO DAILY 02/17/19 02/17/19 Unknown History Tadalafil [Cialis] 20 mg PO BID 02/17/19 02/18/19 Unknown History Zolpidem [Ambien] 10 mg PO QHS 02/17/19 02/18/19 02/17/19 21:00 History hydrOXYzine HCL [Atarax] 25 mg PO Q6HR PRN 02/17/19 02/18/19 02/17/19 12:00 History Aspirin EC 81 mg PO QDAY #30 tablet. 02/23/19 Unknown Rx Midodrine [Proamatine] 5 mg PO TID@0800,1200,1600 #30 02/24/19 Unknown Rx tablet Active Medications: Generic Name Dose Route Start Last Admin Trade Name Freq PRN Reason Stop Dose Admin Acetaminophen 650 mg 03/02/19 06:01 Tylenol PO Q4H PRN Pain MILD(1-3)/Fever >100.5/TURNER Albumin Human 25 gm 03/02/19 10:20 Alburx 25% (Albumin) IV NANNETTE PRN Hypotension Epoetin Tl 10,000 unit 03/02/19 10:20 03/02/19 16:15 Procrit IV 10,000 unit NANNETTE PRN Administration hemodialysis Sodium Chloride 100 mls @ 999 mls/hr 03/02/19 10:20 Nacl 0.9% IV NANNETTE PRN Hypotension Morphine Sulfate 2 mg 03/02/19 06:01 03/03/19 09:27 Morphine IV 2 mg Q4H PRN Administration Pain, Moderate (4-6) Ondansetron HCl 4 mg 03/02/19 06:14 03/02/19 18:27 Zofran IV 4 mg Q4H PRN Administration Nausea And Vomiting Sodium Chloride 10 ml 03/02/19 10:00 03/03/19 09:28 Sodium Chloride Flush Syringe 10 Ml IV 10 ml BID CATHY Administration Sodium Chloride 10 ml 03/02/19 06:01 Sodium Chloride Flush Syringe 10 Ml IV PRN PRN LINE FLUSH
[2019-03-03 10:16] LABS: Albumin 3.6 g/dL (3.9-5); BUN/Creatinine Ratio 4; Blood Urea Nitrogen 19 mg/dL (7-17); Hemolysis Index 5
[2019-03-03 10:33] LABS: Alanine Aminotransferase < 5 units/L (7-56)
--- NOTE | 2019-03-03 12:10 | Gastroenterology Progress Note ---
<STEVE KINCAID - Last Filed: 03/03/19 12:13> Assessment and Plan 1. Acute pancreatitis -afebrile -WBC and H/H WNL -LFTs WNL -lipase trended down (>2000 on admission, now 169) -triglyceride level 225 -s/p CCY 02/18/19, however CT and U/S showed gallbladder present with stones?? -etiology-most likely biliary pancreatitis -clinically, patient is stable with abd pain improving. No N/V. Tolerating clears. -will consult surgery to review imaging and for further recommendations (called and discussed with Dr. Nelson; she will review imaging with radiology) -continue to trend labs and supportive care -will follow 2.Duodenitis-likely 2/2 pancreatitis -no plan for EGD at this time 3.ESRD 4.COPD Subjective Date of service: 03/03/19 Principal diagnosis: pancreatitis Interval history: Patient resting in bed w/o acute distress and family at bedside. Reports abd pain improving. No N/V. Tolerating clears. Objective - Constitutional Vitals: Temp Pulse Resp BP Pulse Ox 98.7 F 73 18 120/65 97 03/03/19 05:36 03/03/19 05:36 03/03/19 05:36 03/03/19 05:36 03/03/19 09:57 General appearance: no acute distress - Respiratory Respiratory: right: CTA (anterior) - Cardiovascular Rhythm: regular - Gastrointestinal General gastrointestinal: Present: soft, tender, non-distended, normal bowel sounds - Neurologic Neurological: alert and oriented x3 - Labs CBC & Chem 7: 03/03/19 05:55 03/03/19 09:34 Labs: Laboratory Results - last 24 hr 03/03/19 03/03/19 03/03/19 05:55 05:55 09:34 WBC 5.3 RBC 3.36 L Hgb 10.4 Hct 31.0 MCV 92 MCH 31 MCHC 34 RDW 14.7 Plt Count 177 Lymph % (Auto) 18.1 Preston % (Auto) 9.0 H Eos % (Auto) 3.6 Baso % (Auto) 1.1 Lymph # 1.0 L Preston # 0.5 Eos # 0.2 Baso # 0.1 Seg Neutrophils % 68.2 Seg Neutrophils # 3.6 Sodium 137 Potassium 4.3 Chloride 91.7 L Carbon Dioxide 28 Anion Gap 22 BUN 16 Creatinine 4.3 H Estimated GFR 11 BUN/Creatinine Ratio 4 Glucose 95 Calcium 9.8 Total Bilirubin AST ALT Alkaline Phosphatase Total Protein Albumin Albumin/Globulin Ratio Lipase 169 H 03/03/19 09:34 WBC RBC Hgb Hct MCV MCH MCHC RDW Plt Count Lymph % (Auto) Preston % (Auto) Eos % (Auto) Baso % (Auto) Lymph # Preston # Eos # Baso # Seg Neutrophils % Seg Neutrophils # Sodium 137 Potassium 4.2 Chloride 91.4 L Carbon Dioxide 30 Anion Gap 20 BUN 19 H Creatinine 4.8 H Estimated GFR 9 BUN/Creatinine Ratio 4 Glucose 99 Calcium 10.0 Total Bilirubin 0.60 AST 15 ALT < 5 L Alkaline Phosphatase 76 Total Protein 6.5 Albumin 3.6 L Albumin/Globulin Ratio 1.2 Lipase <JOSE ALBERTO BARTHOLOMEW - Last Filed: 03/03/19 13:13> Assessment and Plan Pt seen and examined. Agree with note above. Patient is feeling better, tolerating clears this morning. lipase improved. surgery consult pending; no further gi recommendations at this time. will sign off, please call as needed. Objective - Constitutional Vitals: Temp Pulse Resp BP Pulse Ox 97.7 F 80 18 142/83 95 03/03/19 13:08 03/03/19 13:08 03/03/19 13:08 03/03/19 13:08 03/03/19 13:08 - Labs CBC & Chem 7: 03/03/19 05:55 03/03/19 09:34 Labs: Laboratory Results - last 24 hr 03/03/19 03/03/19 03/03/19 05:55 05:55 09:34 WBC 5.3 RBC 3.36 L Hgb 10.4 Hct 31.0 MCV 92 MCH 31 MCHC 34 RDW 14.7 Plt Count 177 Lymph % (Auto) 18.1 Preston % (Auto) 9.0 H Eos % (Auto) 3.6 Baso % (Auto) 1.1 Lymph # 1.0 L Preston # 0.5 Eos # 0.2 Baso # 0.1 Seg Neutrophils % 68.2 Seg Neutrophils # 3.6 Sodium 137 Potassium 4.3 Chloride 91.7 L Carbon Dioxide 28 Anion Gap 22 BUN 16 Creatinine 4.3 H Estimated GFR 11 BUN/Creatinine Ratio 4 Glucose 95 Calcium 9.8 Total Bilirubin AST ALT Alkaline Phosphatase Total Protein Albumin Albumin/Globulin Ratio Lipase 169 H 03/03/19 09:34 WBC RBC Hgb Hct MCV MCH MCHC RDW Plt Count Lymph % (Auto) Preston % (Auto) Eos % (Auto) Baso % (Auto) Lymph # Preston # Eos # Baso # Seg Neutrophils % Seg Neutrophils # Sodium 137 Potassium 4.2 Chloride 91.4 L Carbon Dioxide 30 Anion Gap 20 BUN 19 H Creatinine 4.8 H Estimated GFR 9 BUN/Creatinine Ratio 4 Glucose 99 Calcium 10.0 Total Bilirubin 0.60 AST 15 ALT < 5 L Alkaline Phosphatase 76 Total Protein 6.5 Albumin 3.6 L Albumin/Globulin Ratio 1.2 Lipase
--- NOTE | 2019-03-03 14:44 | Consultation ---
History of Present Illness Consult date: 03/03/19 Chief complaint: abdominal pain, pancreatitis - History of present illness History of present illness: 58 yo F s/p robotic cholecystectomy on 02/18/19 presents with epigastric abdominal pain x 2 days, n/v. The pain started suddenly and gradually worsened. She denies f/c. Today she feels much better with minimal pain and able to tolerate clear liquids. Past History Past Medical History: COPD, dialysis, ESRD Past Surgical History: cholecystectomy Social history: no significant social history Family history: no significant family history Medications and Allergies Allergies Allergy/AdvReac Type Severity Reaction Status Date / Time heparin Allergy Intermediate Itching Verified 02/17/19 13:44 lisinopril AdvReac Mild COUGH Verified 02/17/19 13:44 Home Medications Medication Instructions Recorded Confirmed Last Taken Type Sertraline [Zoloft] 1 tab PO DAILY 02/22/16 02/18/19 02/17/19 21:00 History ALBUTEROL NEB's [Proventil 0.083% 2.5 mg IH TID PRN #120 nebu 09/25/17 02/18/19 02/18/19 07:55 Rx NEBS] ALBUTEROL Inhaler (OR & NICU) 2 puff IH QID PRN 02/17/19 02/18/19 02/17/19 09:00 History [ProAir HFA Inhaler] AtorvaSTATin [Lipitor] 20 mg PO QHS 02/17/19 02/18/19 02/17/19 21:00 History Dexlansoprazole [Dexilant] 60 mg PO QDAY 02/17/19 02/18/19 02/16/19 09:00 History Fluticasone (Nf) [Flovent 220 2 puff IH BID 02/17/19 02/18/19 02/17/19 09:00 History MCG/PUFF HFA] Loratadine [Claritin] 10 mg PO DAILY 02/17/19 02/18/19 02/17/19 10:00 History Pregabalin [Lyrica] 50 mg PO DAILY 02/17/19 02/17/19 Unknown History Tadalafil [Cialis] 20 mg PO BID 02/17/19 02/18/19 Unknown History Zolpidem [Ambien] 10 mg PO QHS 02/17/19 02/18/1919 21:00 History hydrOXYzine HCL [Atarax] 25 mg PO Q6HR PRN 02/17/19 02/18/19 02/17/19 12:00 History Aspirin EC 81 mg PO QDAY #30 tablet. 02/23/19 Unknown Rx Midodrine [Proamatine] 5 mg PO TID@0800,1200,1600 #30 02/24/19 Unknown Rx tablet Active Meds: Active Medications Acetaminophen (Tylenol) 650 mg PO Q4H PRN PRN Reason: Pain MILD(1-3)/Fever >100.5/TURNER Albumin Human (Alburx 25% (Albumin)) 25 gm IV NANNETTE PRN PRN Reason: Hypotension Epoetin Tl (Procrit) 10,000 unit IV NANNETTE PRN PRN Reason: hemodialysis Last Admin: 03/02/19 16:15 Dose: 10,000 unit Documented by: Sodium Chloride (Nacl 0.9%) 100 mls @ 999 mls/hr IV NANNETTE PRN PRN Reason: Hypotension Morphine Sulfate (Morphine) 2 mg IV Q4H PRN PRN Reason: Pain, Moderate (4-6) Last Admin: 03/03/19 09:27 Dose: 2 mg Documented by: Ondansetron HCl (Zofran) 4 mg IV Q4H PRN PRN Reason: Nausea And Vomiting Last Admin: 03/02/19 18:27 Dose: 4 mg Documented by: Sodium Chloride (Sodium Chloride Flush Syringe 10 Ml) 10 ml IV BID CATHY Last Admin: 03/03/19 09:28 Dose: 10 ml Documented by: Sodium Chloride (Sodium Chloride Flush Syringe 10 Ml) 10 ml IV PRN PRN PRN Reason: LINE FLUSH Review of Systems All systems: negative (10 pt ROS performed and negative except for that listed in HPI) Exam Vital Signs Temp Pulse Resp BP Pulse Ox 98.6 F 86 12 182/90 93 03/02/19 03:56 03/02/19 03:56 03/02/19 03:56 03/02/19 03:56 03/02/19 03:56 Narrative exam: Gen: AAOx3. NAD ENT: no scleral icterus or conjunctival pallor CV: s1, s2+ resp; even and unlabored Abd: soft, ND. mild TTP in epigastrum. No r/r/g. Incisions healing well. Ext; no c/c/e Results - Labs 03/03/19 05:55 03/03/19 09:34 Abnormal lab results 03/03/19 03/03/19 03/03/19 Range/Units 05:55 05:55 09:34 RBC 3.36 L (3.65-5.03) M/mm3 [place] % (Auto) 9.0 H (0.0-7.3) % Lymph # 1.0 L (1.2-5.4) K/mm3 Chloride 91.7 L (98-107) mmol/L BUN (7-17) mg/dL Creatinine 4.3 H (0.7-1.2) mg/dL ALT (7-56) units/L Albumin (3.9-5) g/dL Lipase 169 H (13-60) units/L 03/03/19 Range/Units 09:34 RBC (3.65-5.03) M/mm3 [place] % (Auto) (0.0-7.3) % Lymph # (1.2-5.4) K/mm3 Chloride 91.4 L (98-107) mmol/L BUN 19 H (7-17) mg/dL Creatinine 4.8 H (0.7-1.2) mg/dL ALT < 5 L (7-56) units/L Albumin 3.6 L (3.9-5) g/dL Lipase (13-60) units/L Diabetes panel 03/03/19 03/03/19 Range/Units 05:55 09:34 Sodium 137 137 (137-145) mmol/L Potassium 4.3 4.2 (3.6-5.0) mmol/L Chloride 91.7 L 91.4 L (98-107) mmol/L Carbon Dioxide 28 30 (22-30) mmol/L BUN 16 19 H (7-17) mg/dL Creatinine 4.3 H 4.8 H (0.7-1.2) mg/dL Glucose 95 99 (65-100) mg/dL Calcium 9.8 10.0 (8.4-10.2) mg/dL AST 15 (5-40) units/L ALT < 5 L (7-56) units/L Alkaline Phosphatase 76 (35-129) units/L Total Protein 6.5 (6.3-8.2) g/dL Albumin 3.6 L (3.9-5) g/dL Calcium panel 03/03/19 03/03/19 Range/Units 05:55 09:34 Calcium 9.8 10.0 (8.4-10.2) mg/dL Albumin 3.6 L (3.9-5) g/dL Pituitary panel 03/03/19 03/03/19 Range/Units 05:55 09:34 Sodium 137 137 (137-145) mmol/L Potassium 4.3 4.2 (3.6-5.0) mmol/L Chloride 91.7 L 91.4 L (98-107) mmol/L Carbon Dioxide 28 30 (22-30) mmol/L BUN 16 19 H (7-17) mg/dL Creatinine 4.3 H 4.8 H (0.7-1.2) mg/dL Glucose 95 99 (65-100) mg/dL Calcium 9.8 10.0 (8.4-10.2) mg/dL Adrenal panel 03/03/19 03/03/19 Range/Units 05:55 09:34 Sodium 137 137 (137-145) mmol/L Potassium 4.3 4.2 (3.6-5.0) mmol/L Chloride 91.7 L 91.4 L (98-107) mmol/L Carbon Dioxide 28 30 (22-30) mmol/L BUN 16 19 H (7-17) mg/dL Creatinine 4.3 H 4.8 H (0.7-1.2) mg/dL Glucose 95 99 (65-100) mg/dL Calcium 9.8 10.0 (8.4-10.2) mg/dL Total Bilirubin 0.60 (0.1-1.2) mg/dL AST 15 (5-40) units/L ALT < 5 L (7-56) units/L Alkaline Phosphatase 76 (35-129) units/L Total Protein 6.5 (6.3-8.2) g/dL Albumin 3.6 L (3.9-5) g/dL - Imaging CT scan - abdomen: report reviewed, image reviewed CT scan - pelvis: report reviewed, image reviewed US - abdomen: report reviewed, image reviewed Assessment and Plan 58 yo F with pancreatitis s/p robotic cholecystectomy on 02/18/19 Plan: 1. Ct scan and u/s abdomen reviewed with Dr. Collins. With additional clinical information given regarding recent cholecystectomy, addendum made that there is no gallbladder. The hyperdense material seen in the gallbladder fossa are clips. There is a small hematoma between the duodenum and pancreatic head. This was present during surgery and nonexpanding. Patient's HB is stable. This is likely irritating pancreas and led to pancreatitis. No evidence of biloma. 2. adv to soft diet as tolerated 3. trend lipase - significantly improved 4. prn PO pain control 5. HD per nephro 6. gentle IVF Will s/o. Patient may follow up in surgery clinic in 1 week upon discharge. Discussed with patient and left for her sister/POA Nancy Healy with update. Thank you, please call with questions.
[2019-03-03] MEDS ORDERED: ATARAX PO PRN (15:13)
[2019-03-03] MEDS ORDERED: PROVENTIL IH PRN (15:13)
--- NOTE | 2019-03-03 15:16 | Progress Note ---
Assessment and Plan Acute pancreatitis/duodenitis - Likely due to biliary pancreatitis - Continue clear liquid diet and advance as tolerated - Symptoms slowly improving, continue supportive care - GI following - no plan for EGD now, continue PPI - General surgeon also consulted for further recommendation and recommended medical management Hypertension, BP stable, no meds now ESRD on HD - Nephrology following COPD, stable, nebs as needed Diastolic CHF, compensated continue home meds Pulmonary HTN, will continue outpatient follow-up, on cialis Paroxysmal atrial fibrillation, - Rate controlled and on aspirin. she was considered by cardroom drawing runner not to be on anticoagulation as event occurred following cholecystectomy. DVT prophylaxis, heparin Brief History: 58 yo F s/p robotic cholecystectomy on 02/18/19 presents with epigastric abdominal pain x 2 days, n/v. Initial workup in the ED suggestive for acute pancreatitis and duodenitis. Hospital physical: GENERAL: well-developed female lying on bed appeared to be in no discomfort. HEENT: Normocephalic. Atraumatic. No conjunctival congestion or icterus. Patient has moist mucous membranes. NECK: Supple. Trachea midline. CHEST/LUNGS: Clear to auscultated bilaterally, breathing nonlabored. No wheezes crackles or rhonchi. HEART/CARDIOVASCULAR: Regular in rate and rhythm. S1 and S2 positive. ABDOMEN: Abdomen is soft, nontender. Patient has normal bowel sounds. SKIN: There is no rash. Warm and dry. NEURO: No focal motor deficit. Follows command. MUSCULOSKELETAL: No joint effusion or tenderness. EXTRIMITY: No edema, no cyanosis or clubbing. PSYCH: Cooperative. Subjective Date of service: 03/03/19 Principal diagnosis: pancreatitis Interval history: Patient seen and examined. Medical records and medication list reviewed. No acute event overnight noted by the RN. Patient denies any chest pain or difficulty breathing. Patient is tolerating clear liquid diet. States abdominal pain much better Discussed plan of care at bedside with patient. Objective - Constitutional Vitals: Vital Signs - 12hr 03/03/19 03/03/19 03/03/19 05:36 09:38 09:57 Temperature 98.7 F Pulse Rate 73 Respiratory 18 Rate Blood Pressure 120/65 O2 Sat by Pulse 94 98 97 Oximetry 03/03/19 13:08 Temperature 97.7 F Pulse Rate 80 Respiratory 18 Rate Blood Pressure 142/83 O2 Sat by Pulse 95 Oximetry - Labs CBC & Chem 7: 03/03/19 05:55 03/03/19 09:34 Labs: Abnormal lab results 03/03/19 03/03/19 03/03/19 Range/Units 05:55 05:55 09:34 RBC 3.36 L (3.65-5.03) M/mm3 [place] % (Auto) 9.0 H (0.0-7.3) % Lymph # 1.0 L (1.2-5.4) K/mm3 Chloride 91.7 L (98-107) mmol/L BUN (7-17) mg/dL Creatinine 4.3 H (0.7-1.2) mg/dL ALT (7-56) units/L Albumin (3.9-5) g/dL Lipase 169 H (13-60) units/L 03/03/19 Range/Units 09:34 RBC (3.65-5.03) M/mm3 [place] % (Auto) (0.0-7.3) % Lymph # (1.2-5.4) K/mm3 Chloride 91.4 L (98-107) mmol/L BUN 19 H (7-17) mg/dL Creatinine 4.8 H (0.7-1.2) mg/dL ALT < 5 L (7-56) units/L Albumin 3.6 L (3.9-5) g/dL Lipase (13-60) units/L
[2019-03-03] MEDS: HALFPRIN EC PO SCH (17:19)
[2019-03-03] MEDS ORDERED: NACL 0.9 (PRIMING MACHINE ONLY DIALYSIS) MC ONE (19:48)
[2019-03-03] MEDS: PULMICORT IH SCH (21:11)
[2019-03-03] MEDS ORDERED: FLUTICASONE IH SCH (22:00)
[2019-03-03] MEDS ORDERED: TADALAFIL 20 MG PO SCH (22:00)
[2019-03-03] MEDS ORDERED: AMBIEN PO SCH (22:00)
[2019-03-04] MEDS ORDERED: PERCOCET 5/325 PO PRN (07:25)
[2019-03-04] MEDS: PULMICORT IH SCH (07:37)
[2019-03-04] MEDS: MORPHINE IV PRN (08:18)
[2019-03-04] MEDS ORDERED: ZOLOFT PO SCH (10:00)
[2019-03-04] MEDS ORDERED: LYRICA PO SCH (10:00)
[2019-03-04] MEDS ORDERED: NON-FORMULARY (Dexlansoprazole [Dexilant] 60 MG) PO SCH (10:00)
[2019-03-04] MEDS ORDERED: COLACE PO SCH (10:00)
[2019-03-04] MEDS ORDERED: PROTONIX PO SCH (10:00)
[2019-03-04] MEDS ORDERED: CLARITIN PO SCH (10:00)
[2019-03-04] MEDS ORDERED: NON-FORMULARY (Pregabalin [Lyrica] 50 MG) PO SCH (10:00)
--- NOTE | 2019-03-04 10:09 | Discharge Summary ---
Providers - Providers Date of Admission: 03/02/19 06:02 Date of discharge: 03/04/19 Attending physician: SHELTON MALDONADO 03/02/19 06:01 Consult to Physician [CONS] Routine Comment: Consulting Provider: ISMA PERALES Physician Instructions: Reason For Exam: pancreatitis 03/02/19 06:04 Consult to Physician [CONS] Routine Comment: Consulting Provider: MIREYA WALLACE Physician Instructions: Reason For Exam: hd 03/03/19 11:19 Consult to Physician [CONS] Routine Comment: Consulting Provider: UMANG BOWSER Physician Instructions: consult surgery Reason For Exam: pancreatitis 2/2 GB disease Primary care physician: MEDICAL ASSEMBLER Hospitalization Condition: Stable Hospital course: Brief History: 58 yo F s/p robotic cholecystectomy on 02/18/19 presents with epigastric abdominal pain x 2 days, n/v. Initial workup in the ED suggestive for acute pancreatitis and duodenitis, admitted for further evaluation and management. Discharge diagnosis and management: Acute pancreatitis/duodenitis - Likely due to biliary pancreatitis - Placed on clear liquid diet and advanced as tolerated - Symptoms slowly improved with supportive care - GI and GS was following - no plan for EGD or surgical intervention now, Patient will continue PPI - General surgeon also recommended medical management - patient was then discharged home in stable condition Hypertension, BP stable, no meds now ESRD on HD - Nephrology was following for HD COPD, stable, nebs as needed Diastolic CHF, compensated, continue home meds Pulmonary HTN, will continue outpatient follow-up, on cialis h/o Paroxysmal atrial fibrillation, - Rate controlled and on aspirin. she was considered by pneumatic deicer inspector not to be on anticoagulation as event occurred following cholecystectomy and resolved. DVT prophylaxis, heparin Hospital physical: GENERAL: well-developed female lying on bed appeared to be in no discomfort. HEENT: Normocephalic. Atraumatic. No conjunctival congestion or icterus. Patient has moist mucous membranes. NECK: Supple. Trachea midline. CHEST/LUNGS: Clear to auscultated bilaterally, breathing nonlabored. No wheezes crackles or rhonchi. HEART/CARDIOVASCULAR: Regular in rate and rhythm. S1 and S2 positive. ABDOMEN: Abdomen is soft, nontender. Patient has normal bowel sounds. SKIN: There is no rash. Warm and dry. NEURO: No focal motor deficit. Follows command. MUSCULOSKELETAL: No joint effusion or tenderness. EXTRIMITY: No edema, no cyanosis or clubbing. PSYCH: Cooperative. Disposition: DC/[place]-06 HOME UND[facility] Time spent for discharge: 34 minutes Core Measure Documentation - Palliative Care Palliative Care/ Comfort Measures: Not Applicable - Core Measures Any of the following diagnoses?: none Exam - Constitutional Vitals: Temp Pulse Resp BP Pulse Ox 98.2 F 82 18 124/68 96 03/04/19 05:01 03/04/19 07:45 03/04/19 07:38 03/04/19 05:01 03/04/19 07:38 Plan Activity: advance as tolerated, fall precautions Weight Bearing Status: Non-Weight Bearing Diet: renal Follow up with: PRIMARY CARE,MD [Primary Care Provider] - 3-5 Days UMANG BOWSER DO [Staff Physician] - 7 Days Prescriptions: oxyCODONE /ACETAMINOPHEN [Percocet 5/325 mg] 1 tab PO Q4H PRN #10 tablet PRN Reason: Pain, Moderate (4-6) Promethazine [Phenergan] 25 mg PO Q6HR PRN #10 tab PRN Reason: Nausea Ondansetron (Nf) [Zofran TAB] 8 mg PO Q8HR PRN #14 tablet PRN Reason: Nausea
--- NOTE | 2019-03-04 10:23 | Progress Note ---
Assessment and Plan Impression * End-stage renal disease on maintenance hemodialysis * s/p Cholecystecomy for chronic cholecystitis * Hx of complete heart block --s/p permanent pacemaker placement * Hypertension * afib with RVR * hypotension * Anemia secondary to ESRD * Secondary hyperparathyroidism Recommendations * Continue hemodialysis on MWF * keep map >65 * UF as tolerated * Diet per surgery/gi * Epogen with dialysis prn * No IV, BP of any puncture in her access arm Subjective Date of service: 03/04/19 Principal diagnosis: pancreatitis Interval history: resting well in bed today Objective - Exam Narrative Exam: - General Limitations: Language Barrier General appearance: alert, in no apparent distress - Head Head exam: Present: atraumatic, normocephalic, normal inspection - Eye Eye exam: Present: normal appearance, PERRL - ENT ENT exam: Present: normal exam, normal orophraynx, mucous membranes moist - Neck Neck exam: Present: normal inspection, full ROM. Absent: tenderness, meningismus, lymphadenopathy, thyromegaly - Respiratory Respiratory exam: Present: normal lung sounds bilaterally - Cardiovascular Cardiovascular Exam: Present: regular rate, normal rhythm, normal heart sounds - GI/Abdominal GI/Abdominal exam: Present: soft, normal bowel sounds. Absent: distended, tenderness, guarding, rebound, rigid, organomegaly, mass, bruit, pulsatile mass, hernia - Extremities Exam Extremities exam: Present: normal inspection, full ROM, normal capillary refill - Back Exam Back exam: Present: normal inspection, full ROM - Neurological Exam Neurological exam: Present: alert, oriented X3, CN II-XII intact - Skin Skin exam: Present: warm, intact, normal color - Vital Signs Vital signs: Vital Signs - 12hr 03/03/19 03/04/19 03/04/19 23:12 05:01 07:38 Temperature 98.4 F 98.2 F Pulse Rate 90 82 Pulse Rate [ 80 Anterior Bilateral Throughout] Respiratory 18 18 Rate Respiratory 18 Rate [Anterior Bilateral Throughout] Blood Pressure 105/63 124/68 O2 Sat by Pulse 95 97 96 Oximetry 03/04/19 07:45 Temperature Pulse Rate Pulse Rate [ 82 Anterior Bilateral Throughout] Respiratory Rate Respiratory Rate [Anterior Bilateral Throughout] Blood Pressure O2 Sat by Pulse Oximetry - Lab 03/03/19 05:55 03/03/19 09:34 Most recent lab results Calcium 10.0 mg/dL (8.4-10.2) 03/03/19 09:34 Medications & Allergies - Medications Allergies/Adverse Reactions: Allergies heparin Allergy (Intermediate, Verified 02/17/19 13:44) Itching lisinopril Adverse Reaction (Mild, Verified 02/17/19 13:44) COUGH Home Medications: Home Medications Medication Instructions Recorded Confirmed Last Taken Type Sertraline [Zoloft] 1 tab PO DAILY 02/22/16 02/18/19 02/17/19 21:00 History ALBUTEROL NEB's [Proventil 0.083% 2.5 mg IH TID PRN #120 nebu 09/25/17 02/18/19 02/18/19 07:55 Rx NEBS] ALBUTEROL Inhaler (OR & NICU) 2 puff IH QID PRN 02/17/19 02/18/19 02/17/19 09:00 History [ProAir HFA Inhaler] AtorvaSTATin [Lipitor] 20 mg PO QHS 02/17/19 02/18/19 02/17/19 21:00 History Dexlansoprazole [Dexilant] 60 mg PO QDAY 02/17/19 02/18/19 02/16/19 09:00 History Fluticasone (Nf) [Flovent 220 2 puff IH BID 02/17/19 02/18/19 02/17/19 09:00 History MCG/PUFF HFA] Loratadine [Claritin] 10 mg PO DAILY 02/17/19 02/18/19 02/17/19 10:00 History Pregabalin [Lyrica] 50 mg PO DAILY 02/17/19 02/17/19 Unknown History Tadalafil [Cialis] 20 mg PO BID 02/17/19 02/18/19 Unknown History Zolpidem [Ambien] 10 mg PO QHS 02/17/19 02/18/19 02/17/19 21:00 History hydrOXYzine HCL [Atarax] 25 mg PO Q6HR PRN 02/17/19 02/18/19 02/17/19 12:00 History Aspirin EC 81 mg PO QDAY #30 tablet. 02/23/19 Unknown Rx Pantoprazole [Protonix TAB] 40 mg PO DAILY #30 tablet 03/04/19 Unknown Rx Active Medications: Generic Name Dose Route Start Last Admin Trade Name Freq PRN Reason Stop Dose Admin Acetaminophen 650 mg 03/02/19 06:01 Tylenol PO Q4H PRN Pain MILD(1-3)/Fever >100.5/TURNER Albumin Human 25 gm 03/02/19 10:20 Alburx 25% (Albumin) IV NANNETTE PRN Hypotension Albuterol 2.5 mg 03/03/19 15:13 Proventil IH TID PRN Wheezing Aspirin 81 mg 03/03/19 16:00 03/03/19 17:19 Halfprin Ec PO Not Given QDAY [facility] Atorvastatin Calcium 20 mg 03/03/19 22:00 03/03/19 21:18 Lipitor PO 20 mg QHS [facility] Administration Budesonide 0.5 mg 03/03/19 20:00 03/04/19 07:37 Pulmicort IH 0.5 mg Q12HRT [facility] Administration Docusate Sodium 100 mg 03/04/19 10:00 Colace PO BID [facility] Epoetin Tl 10,000 unit 03/02/19 10:20 03/02/19 16:15 Procrit IV 10,000 unit NANNETTE PRN Administration hemodialysis Hydroxyzine HCl 25 mg 03/03/19 15:13 Atarax PO Q6HR PRN Itching Sodium Chloride 100 mls @ 999 mls/hr 03/02/19 10:20 Nacl 0.9% IV NANNETTE PRN Hypotension Loratadine 10 mg 03/04/19 10:00 Claritin PO DAILY [facility] Miscellaneous Medication 20 mg 03/03/19 22:00 Tadalafil [Cialis] PO BID [facility] Morphine Sulfate 2 mg 03/02/19 06:01 03/04/19 08:18 Morphine IV 2 mg Q4H PRN Administration Pain , Severe (7-10) Ondansetron HCl 4 mg 03/02/19 06:14 03/02/19 18:27 Zofran IV 4 mg Q4H PRN Administration Nausea And Vomiting Oxycodone/Acetaminophen 1 tab 03/04/19 07:25 Percocet 5/325 PO Q4H PRN Pain, Moderate (4-6) Pantoprazole Sodium 40 mg 03/04/19 10:00 Protonix PO DAILY [facility] Pregabalin 50 mg 03/04/19 10:00 Lyrica PO DAILY [facility] Sertraline HCl 100 mg 03/04/19 10:00 Zoloft PO DAILY CATHY Sodium Chloride 10 ml 03/02/19 10:00 03/03/19 21:32 Sodium Chloride Flush Syringe 10 Ml IV 10 ml BID CATHY Administration Sodium Chloride 10 ml 03/02/19 06:01 Sodium Chloride Flush Syringe 10 Ml IV PRN PRN LINE FLUSH Zolpidem Tartrate 10 mg 03/03/19 22:00 03/03/19 21:18 Ambien PO 10 mg QHS CATHY Administration
[2019-03-04] MEDS: HALFPRIN EC PO SCH (11:37)
[2019-03-04] MEDS: SODIUM CHLORIDE FLUSH SYRINGE 10 ML IV SCH (11:38)
[2019-03-04 12:33] VITALS: BP 107/62
== END 2019-03-04 16:00 | disposition home health service (06) | DRG 438 ==
LOC: ED 03:54 → SUATTDRO 03:54 → 3A 06:02
PROVIDERS: ADMIT Internal Medicine; ATTEND Internal Medicine
PROC: 5A1D70Z Performance of Urinary Filtration, Intermittent, Less than 6 Hours Per Day (ICD-10-PCS; principal; 2019-03-02)
PROC: 5A1D70Z Performance of Urinary Filtration, Intermittent, Less than 6 Hours Per Day (ICD-10-PCS; 2019-03-03)
DX: K85.10 Biliary acute pancreatitis without necrosis or infection (principal); N18.6 End stage renal disease; N25.81 Secondary hyperparathyroidism of renal origin; I13.2 Hypertensive heart and chronic kidney disease with heart failure and with stage 5 chronic kidney disease, or end stage renal disease; I50.32 Chronic diastolic (congestive) heart failure; J96.10 Chronic respiratory failure, unspecified whether with hypoxia or hypercapnia; K80.10 Calculus of gallbladder with chronic cholecystitis without obstruction; J44.9 Chronic obstructive pulmonary disease, unspecified; I95.9 Hypotension, unspecified; D63.1 Anemia in chronic kidney disease; K29.80 Duodenitis without bleeding; I27.20 Pulmonary hypertension, unspecified; I48.0 Paroxysmal atrial fibrillation; K21.9 Gastro-esophageal reflux disease without esophagitis; M19.90 Unspecified osteoarthritis, unspecified site; Z99.2 Dependence on renal dialysis; Z90.49 Acquired absence of other specified parts of digestive tract; Z95.0 Presence of cardiac pacemaker; Z82.49 Family history of ischemic heart disease and other diseases of the circulatory system; Z79.899 Other long term (current) drug therapy; Z79.82 Long term (current) use of aspirin
CPT/HCPCS: 36415; 74176; 76705; 80048; 80053; 80061; 83690; 85025; 93005; 93010; 94640; 94760; 96374; 96375; 96376; G0378; A9270-GY; J0885; J2270; J2405; J7030

== ENCOUNTER 2019-03-18 09:05 | Outpatient (CLI) | payer MEDICARE ==
[2019-03-18 09:48] LABS: Albumin 3.5 g/dL (3.9-5); Calcium 9.3 mg/dL (8.4-10.2)
[2019-03-18 10:03] LABS: Basophils % (Auto) 1.5 % (0.0-1.8); Eosinophils # (Auto) 0.2 K/mm3 (0.0-0.4); Eosinophils % (Auto) 6.6 % (0.0-4.3); Hematocrit 29.8 % (30.3-42.9); Hemoglobin 9.7 gm/dl (10.1-14.3); Lymphocytes # (Auto) 0.7 K/mm3 (1.2-5.4); Lymphocytes % (Auto) 23.8 % (13.4-35.0); Mean Corpuscular HGB Conc 33 % (30-34); Mean Corpuscular Volume 94 fl (79-97); Monocytes # (Auto) 0.3 K/mm3 (0.0-0.8); Monocytes % (Auto) 10.2 % (0.0-7.3); Platelet Count 112 K/mm3 (140-440); Red Blood Count 3.18 M/mm3 (3.65-5.03); Red Cell Distribution Width 15.1 % (13.2-15.2)
== END 2019-03-18 09:06 | disposition home or self-care (01) ==
LOC: LAB 09:05
PROVIDERS: ATTEND Surgery
DX: K81.1 Chronic cholecystitis (principal); I13.2 Hypertensive heart and chronic kidney disease with heart failure and with stage 5 chronic kidney disease, or end stage renal disease; N18.6 End stage renal disease; I50.9 Heart failure, unspecified; E78.00 Pure hypercholesterolemia, unspecified; J44.9 Chronic obstructive pulmonary disease, unspecified; Z99.2 Dependence on renal dialysis; Z88.8 Allergy status to other drugs, medicaments and biological substances
CPT/HCPCS: 36415; 80053; 83690; 85025

== ENCOUNTER 2019-04-06 09:03 | Day surgery (SDC) | payer MEDICARE ==
--- NOTE | 2019-04-06 10:54 | Anesthesia Consultation ---
Anesthesia Consult and Med Hx Date of service: 04/06/19 - Airway Anesthetic Teeth Evaluation: Good ROM Head & Neck: Adequate Mental/Hyoid Distance: Adequate Mallampati Class: Class II Intubation Access Assessment: Good - Pulmonary Exam CTA: Yes - Cardiac Exam Cardiac Exam: RRR - Pre-Operative Health Status ASA Pre-Surgery Classification: ASA3 Proposed Anesthetic Plan: MAC (ASA 3 patient , with ESRD, HTN , PACER , COPD on 3 L for MAC for EGD) - Pulmonary Hx Smoking: No Hx Asthma: No Hx Respiratory Symptoms: Yes (Chronic Respiratory Failure) SOB: Yes (3L O2) COPD: Yes (3L O2) Hx Pneumonia: No Hx Sleep Apnea: No - Cardiovascular System Hx Hypertension: Yes Hx Coronary Artery Disease: Yes Hx Heart Attack/AMI: No Hx Angina: No Hx Percutaneous Transluminal Coronary Angioplasty (PTCA): No Hx Cardia Arrhythmia: Yes (Complete Heart Block) Hx Pacemaker: Yes Hx Internal Defibrillator: No Hx Valvular Heart Disease: No Hx Heart Murmur: No Hx Peripheral Vascular Disease: No - Central Nervous System 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
--- NOTE | 2019-04-06 10:54 | Anesthesia Day of Surgery ---
Anesthesia Day of Surgery - Day of Surgery Patient Examined: Yes Patient H&P Reviewed: Yes Patient is NPO: Yes
[2019-04-06] MEDS ORDERED: AMIDATE IV ONE (10:57)
[2019-04-06] MEDS ORDERED: XYLOCAINE MPF 2% ONE (10:58)
[2019-04-06] MEDS ORDERED: DIPRIVAN 10 MG/ML IV ONE (10:58)
[2019-04-06] MEDS ORDERED: VERSED ONE (10:59)
[2019-04-06] MEDS ORDERED: NACL 0.9% 1000 ML 1,000 ML IV SCH (11:00)
[2019-04-06] MEDS ORDERED: XYLOCAINE 2% INFILTRATI ONE (11:47)
--- NOTE | 2019-04-06 12:15 | Short Stay Summary ---
Short Stay Documentation Date of service: 04/06/19 - History H&P: obtained from office - Allergies and Medications Current Medications: Allergies heparin Allergy (Intermediate, Verified 02/17/19 13:44) Itching lisinopril Adverse Reaction (Mild, Verified 02/17/19 13:44) COUGH Home Medications Medication Instructions Recorded Confirmed Last Taken Type Sertraline [Zoloft] 1 tab PO DAILY 02/22/16 02/18/19 02/17/19 21:00 History ALBUTEROL NEB's [Proventil 0.083% 2.5 mg IH TID PRN #120 nebu 09/25/17 02/18/19 02/18/19 07:55 Rx NEBS] ALBUTEROL Inhaler (OR & NICU) 2 puff IH QID PRN 02/17/19 02/18/19 02/17/19 09:00 History [ProAir HFA Inhaler] AtorvaSTATin [Lipitor] 20 mg PO QHS 02/17/19 02/18/19 02/17/19 21:00 History Dexlansoprazole [Dexilant] 60 mg PO QDAY 02/17/19 02/18/19 02/16/19 09:00 History Fluticasone (Nf) [Flovent 220 2 puff IH BID 02/17/19 02/18/19 02/17/19 09:00 History MCG/PUFF HFA] Loratadine [Claritin] 10 mg PO DAILY 02/17/19 02/18/19 02/17/19 10:00 History Pregabalin [Lyrica] 50 mg PO DAILY 02/17/19 02/17/19 Unknown History Tadalafil [Cialis] 20 mg PO BID 02/17/19 02/18/19 Unknown History Zolpidem [Ambien] 10 mg PO QHS 02/17/19 02/18/19 02/17/19 21:00 History hydrOXYzine HCL [Atarax] 25 mg PO Q6HR PRN 02/17/19 02/18/19 02/17/19 12:00 History Aspirin EC 81 mg PO QDAY #30 tablet. 02/23/19 Unknown Rx Ondansetron (Nf) [Zofran TAB] 8 mg PO Q8HR PRN #14 tablet 03/04/19 Unknown Rx Promethazine [Phenergan] 25 mg PO Q6HR PRN #10 tab 03/04/19 Unknown Rx oxyCODONE /ACETAMINOPHEN [Percocet 1 tab PO Q4H PRN #10 tablet 03/04/19 Unknown Rx 5/325 mg] Active Medications Sodium Chloride (Nacl 0.9% 1000 Ml) 1,000 mls @ 50 mls/hr IV DIRECT CATHY Last Admin: 04/06/19 11:23 Dose: 50 mls/hr Documented by: - Brief post op/procedure progress note Date of procedure: 04/06/19 Findings: report dictated Estimated blood loss: none Pathology: list (antral biopsies for h.pylori) Specimen disposition: to lab Condition: stable - Disposition Condition at discharge: Good Disposition: DC-01 TO HOME OR SELFCARE - Discharge Diagnoses (1) Hematemesis Status: Acute (2) RUQ pain Status: Acute Short Stay Discharge Plan Activity: other (no driving for 24 hours) Weight Bearing Status: Weight Bear as Tolerated Diet: renal Follow up with: SHAMEKA BERGER MD [Primary Care Provider] - 7 Days
--- NOTE | 2019-04-06 12:18 | Operative Report ---
Operative Report Operative Report: Date of procedure: 04/06/2019 Procedure: Esophagogastroduodenoscopy with biopsy for Helicobacter pylori. Preprocedure diagnosis: Recent hematemesis. Right upper quadrant pain. Post procedure diagnosis: Moderately severe erosive gastritis. Hiatus hernia. Endoscopist: Dr. Rich Anesthesia: Monitored anesthesia care per anesthesia department Medications: Propofol per anesthesia. Estimated blood loss: 0 After careful discussion of the nature and purpose of the procedure as well as details the technique risks benefits and alternatives consent was obtained. The patient was placed in the left lateral decubitus position and medicated per anesthesia. The tip of the [employer] EQ 570 video scope was passed per orum under direct vision into the esophagus and advanced into the stomach and descending duodenum. The descending duodenum the duodenal bulb and pylorus were symmetrical and normal. The scope was withdrawn into the stomach and the stomach then gently insufflated with air. The antrum revealed multiple small erosions. Erosions were 2-3 mm in size in general. Biopsies were taken in the prepyloric area for H. pylori testing. The stomach was further insufflated and the scope was then retroflexed and partially withdrawn. The cardia, fundus, and body of the stomach were within normal limits and easily distensible.The scope was then withdrawn in the forward position. The esophagogastric junction was at 36 cm.. A medium size hiatus hernia was present. The esophageal body was norm al throughout. The procedure was was well tolerated and the patient was observed in recovery. Impressions: Erosive antral gastritis-presumed responsible for symptoms and hematemesis. Biopsies pending for H. pylori. Hiatus hernia. Plan: The patient's daughter will call the office in approximately one week to discuss the pathology findings and further management based as well on other pending studies. Continue proton pump inhibitor. Electronically signed: Mike Rich MD
[2019-04-06 12:51] VITALS: BP 133/78
== END 2019-04-06 09:04 | disposition home or self-care (01) ==
LOC: GIO 09:03
PROVIDERS: ATTEND Internal Medicine Gastroenterology
DX: K29.40 Chronic atrophic gastritis without bleeding (principal); K44.9 Diaphragmatic hernia without obstruction or gangrene; K31.89 Other diseases of stomach and duodenum; K92.0 Hematemesis; I13.2 Hypertensive heart and chronic kidney disease with heart failure and with stage 5 chronic kidney disease, or end stage renal disease; I50.9 Heart failure, unspecified; N18.6 End stage renal disease; I25.10 Atherosclerotic heart disease of native coronary artery without angina pectoris; I48.91 Unspecified atrial fibrillation; K21.9 Gastro-esophageal reflux disease without esophagitis; F32.9 Major depressive disorder, single episode, unspecified; J43.9 Emphysema, unspecified; M19.90 Unspecified osteoarthritis, unspecified site; F41.9 Anxiety disorder, unspecified; Z88.8 Allergy status to other drugs, medicaments and biological substances; Z79.82 Long term (current) use of aspirin; Z79.899 Other long term (current) drug therapy; E78.00 Pure hypercholesterolemia, unspecified; Z90.49 Acquired absence of other specified parts of digestive tract; Z98.890 Other specified postprocedural states; Z99.2 Dependence on renal dialysis
CPT/HCPCS: 43239; 88305; 88342; J2250; J2704; J7030

== ENCOUNTER 2019-08-11 16:34 | Emergency (ER) | payer MEDICARE ==
--- NOTE | 2019-08-11 17:06 | Emergency Department Report ---
ED General Adult HPI - General Stated complaint: HYPERTENSION Time Seen by Provider: 08/11/19 17:01 Source: patient, EMS Mode of arrival: Stretcher Limitations: No Limitations - History of Present Illness Initial comments: is a 59-year-old female that presents emergency room with complaints of headache and elevated blood pressure. Patient states her headache is a 3 out of 10. Patient states her headache is better with rest and worse with exertion. Patient states she was on dialysis and had approximately 45 minutes left in her blood pressure shot up and dialysis sent her here for evaluation. Patient states she's always had high blood pressure. Patient states her blood pressure is 197/84 when she started dialysis. Patient states and then increased to 260/130. Chart received from dialysis with patient's past medical history. Chart review. Patient's billposter is Dr. Blake. -: Sudden Location: head Radiation: non-radiation Severity scale (0 -10): 3 Quality: aching Consistency: intermittent Improves with: rest Worsens with: other Associated Symptoms: headaches. denies: confusion, chest pain, cough, diaphoresis, fever/chills, loss of appetite, malaise, nausea/vomiting, rash, seizure, shortness of breath, syncope, weakness Treatments Prior to Arrival: none - Related Data Home Medications Medication Instructions Recorded Confirmed Last Taken Sertraline [Zoloft] 1 tab PO DAILY 02/22/16 02/18/19 02/17/19 21:00 ALBUTEROL Inhaler (OR & NICU) 2 puff IH QID PRN 02/17/19 02/18/19 02/17/19 09:00 [ProAir HFA Inhaler] AtorvaSTATin [Lipitor] 20 mg PO QHS 02/17/19 02/18/19 02/17/19 21:00 Dexlansoprazole [Dexilant] 60 mg PO QDAY 02/17/19 02/18/19 02/16/19 09:00 Fluticasone (Nf) [Flovent 220 2 puff IH BID 02/17/19 02/18/19 02/17/19 09:00 MCG/PUFF HFA] Loratadine [Claritin] 10 mg PO DAILY 02/17/19 02/18/19 02/17/19 10:00 Pregabalin [Lyrica] 50 mg PO DAILY 02/17/19 02/17/19 Unknown Tadalafil [Cialis] 20 mg PO BID 02/17/19 02/18/19 Unknown Zolpidem [Ambien] 10 mg PO QHS 02/17/19 02/18/19 02/17/19 21:00 hydrOXYzine HCL [Atarax] 25 mg PO Q6HR PRN 02/17/19 02/18/19 02/17/19 12:00 Previous Rx's Medication Instructions Recorded Last Taken Type ALBUTEROL NEB's [Proventil 0.083% 2.5 mg IH TID PRN #120 nebu 09/25/17 02/18/19 07:55 Rx NEBS] Aspirin EC [Halfprin EC] 81 mg PO QDAY #30 tablet. 02/23/19 Unknown Rx Ondansetron (Nf) [Zofran TAB] 8 mg PO Q8HR PRN #14 tablet 03/04/19 Unknown Rx Promethazine [Phenergan] 25 mg PO Q6HR PRN #10 tab 03/04/19 Unknown Rx oxyCODONE /ACETAMINOPHEN [Percocet 1 tab PO Q4H PRN #10 tablet 03/04/19 Unknown Rx 5/325 mg] Allergies Allergy/AdvReac Type Severity Reaction Status Date / Time heparin Allergy Intermediate Itching Verified 02/17/19 13:44 lisinopril AdvReac Mild COUGH Verified 02/17/19 13:44 ED Review of Systems ROS: Stated complaint: HYPERTENSION Other details as noted in HPI Constitutional: denies: chills, fever Eyes: denies: eye pain, eye discharge, vision change ENT: denies: ear pain, throat pain Respiratory: denies: cough, shortness of breath, wheezing Cardiovascular: denies: chest pain, palpitations Endocrine: no symptoms reported Gastrointestinal: denies: abdominal pain, nausea, diarrhea Genitourinary: denies: urgency, dysuria, discharge Musculoskeletal: denies: back pain, joint swelling, arthralgia Skin: denies: rash, lesions Neurological: as per HPI, headache. denies: weakness, paresthesias Psychiatric: denies: anxiety, depression Hematological/Lymphatic: denies: easy bleeding, easy bruising ED Past Medical Hx - Past Medical History Previous Medical History?: Yes Hx Hypertension: Yes Hx Heart Attack/AMI: No Hx Congestive Heart Failure: Yes Hx Diabetes: No Hx Deep Vein Thrombosis: No Hx GERD: Yes (SOMETIMES) Hx Liver Disease: No Hx Renal Disease: Yes Hx Sickle Cell Disease: No Hx Arthritis: Yes Hx Kidney Stones: No Hx Asthma: No Hx COPD: Yes (3L O2) Hx HIV: No Additional medical history: dialysis M, W, F - Surgical History Past Surgical History?: Yes Hx Coronary Stent: No Hx Open Heart Surgery: No Hx Pacemaker: Yes Hx Internal Defibrillator: No Hx Cholecystectomy: Yes Hx Appendectomy: No - Family History Family history: no significant - Social History Smoking Status: Never Smoker Substance Use Type: None - Medications Home Medications: Home Medications Medication Instructions Recorded Confirmed Last Taken Type Sertraline [Zoloft] 1 tab PO DAILY 02/22/16 02/18/19 02/17/19 21:00 History ALBUTEROL NEB's [Proventil 0.083% 2.5 mg IH TID PRN #120 nebu 09/25/17 02/18/19 02/18/19 07:55 Rx NEBS] ALBUTEROL Inhaler (OR & NICU) 2 puff IH QID PRN 02/17/19 02/18/19 02/17/19 09:00 History [ProAir HFA Inhaler] AtorvaSTATin [Lipitor] 20 mg PO QHS 02/17/19 02/18/19 02/17/19 21:00 History Dexlansoprazole [Dexilant] 60 mg PO QDAY 02/17/19 02/18/19 02/16/19 09:00 History Fluticasone (Nf) [Flovent 220 2 puff IH BID 02/17/19 02/18/19 02/17/19 09:00 History MCG/PUFF HFA] Loratadine [Claritin] 10 mg PO DAILY 02/17/19 02/18/19 02/17/19 10:00 History Pregabalin [Lyrica] 50 mg PO DAILY 02/17/19 02/17/19 Unknown History Tadalafil [Cialis] 20 mg PO BID 02/17/19 02/18/19 Unknown History Zolpidem [Ambien] 10 mg PO QHS 02/17/19 02/18/19 02/17/19 21:00 History hydrOXYzine HCL [Atarax] 25 mg PO Q6HR PRN 02/17/19 02/18/19 02/17/19 12:00 History Aspirin EC [Halfprin EC] 81 mg PO QDAY #30 tablet. 02/23/19 Unknown Rx Ondansetron (Nf) [Zofran TAB] 8 mg PO Q8HR PRN #14 tablet 03/04/19 Unknown Rx Promethazine [Phenergan] 25 mg PO Q6HR PRN #10 tab 03/04/19 Unknown Rx oxyCODONE /ACETAMINOPHEN [Percocet 1 tab PO Q4H PRN #10 tablet 03/04/19 Unknown Rx 5/325 mg] ED Physical Exam - General Limitations: No Limitations General appearance: alert, in no apparent distress - Head Head exam: Present: atraumatic, normocephalic - Eye Eye exam: Present: normal appearance, PERRL Pupils: Present: normal accommodation - ENT ENT exam: Present: mucous membranes moist - Neck Neck exam: Present: normal inspection - Respiratory Respiratory exam: Present: normal lung sounds bilaterally. Absent: respiratory distress - Cardiovascular Cardiovascular Exam: Present: regular rate, normal rhythm. Absent: systolic murmur, diastolic murmur, rubs, gallop - GI/Abdominal GI/Abdominal exam: Present: soft, normal bowel sounds - Extremities Exam Extremities exam: Present: normal inspection - Back Exam Back exam: Present: normal inspection - Neurological Exam Neurological exam: Present: alert, oriented X3 - Psychiatric Psychiatric exam: Present: normal affect, normal mood - Skin Skin exam: Present: warm, dry, intact, normal color. Absent: rash ED Course Vital Signs 08/11/19 08/11/19 08/11/19 17:20 17:28 17:32 Temperature 98.0 F Pulse Rate 83 77 83 Respiratory 16 16 Rate Blood Pressure 211/107 185/97 Blood Pressure 185/97 [Left] O2 Sat by Pulse 100 100 Oximetry 08/11/19 08/11/19 08/11/19 18:46 18:56 19:45 Temperature Pulse Rate 79 77 76 Respiratory 17 16 18 Rate Blood Pressure Blood Pressure 176/64 175/94 168/97 [Left] O2 Sat by Pulse 100 95 99 Oximetry - Reevaluation(s) Reevaluation #1: She states her headache has improved. Patient given Benadryl for itching. Patient's blood pressure better 11/06/19 18:01 Reevaluation #2: pt's blood pressure is still control. Patient states her itching is resolved. Patient states her headache has resolved. She is stable for discharge. Patient will be discharged home. Patient given discharge instructions. Patient voiced understanding of discharge instructions. Patient agrees with plan of care and discharge. I discussed all results with patient. 08/11/19 18:40 ED Medical Decision Making - Lab Data Result diagrams: 08/11/19 17:43 08/11/19 17:43 Vital Signs 08/11/19 08/11/19 08/11/19 17:20 17:28 17:32 Temperature 98.0 F Pulse Rate 83 77 83 Respiratory 16 16 Rate Blood Pressure 211/107 185/97 Blood Pressure 185/97 [Left] O2 Sat by Pulse 100 100 Oximetry 08/11/19 08/11/19 08/11/19 18:46 18:56 19:45 Temperature Pulse Rate 79 77 76 Respiratory 17 16 18 Rate Blood Pressure Blood Pressure 176/64 175/94 168/97 [Left] O2 Sat by Pulse 100 95 99 Oximetry - Medical Decision Making Is a 59-year-old female that presents emergency room with complaints of elevated blood pressure and headache. Patient's blood pressure extremely high patient was given clonidine 0.2 mg. Patient's blood pressure responded well. Patient's stable for discharge. Patient's blood pressure at time of discharge and more manageable level. Patient's labs done. Patient's lab findings consistent with chronic kidney disease. Patient's electrolytes within normal limits. Patient stable for discharge. Patient will be discharged home. Patient instructed to continue her dialysis routine and continue taking her blood pressure medications. Patient given discharge instructions. - Differential Diagnosis malignant hypertension. Missed dose. . Headache. Critical Care Time: Yes Critical care time in (mins) excluding proc time.: 35 Critical care attestation.: If time is entered above; I have spent that time in minutes in the direct care of this critically ill patient, excluding procedure time. Critical Care Time: 35 minutes ED Disposition Clinical Impression: Chronic pruritus, ESRD (end stage renal disease), Malignant hypertension Headache Qualifiers: Headache type: unspecified Headache chronicity pattern: acute headache Intractability: not intractable Qualified Code(s): R51 - Headache Disposition: DC-01 TO HOME OR SELFCARE Is pt being admited?: No Does the pt Need Aspirin: No Condition: Stable Instructions: Chronic Kidney Disease (ED), Heart Healthy Diet (ED), How to Take a Blood Pressure (ED), Chronic Hypertension (ED), Hypotension (ED), DASH Eating Plan (ED), Low Sodium Diet (ED), Hypertension (ED) Additional Instructions: Patient to follow-up with primary care in 2-3 days. Patient to follow up with billposter in 2-3 days. Patient to continue her dialysis schedule. Patient to return to ER if condition worsens. Patient to rest. Patient increase water. Patient to eat a kidney and heart healthy diet. Patient to monitor blood pressure and keep a log and take to her dialysis and nephrology and primary care visits. Patient to continue all blood pressure and all other medications. Referrals: PRIMARY CARE, [Primary Care Provider] - 2-3 Days Time of Disposition: 18:48
[2019-08-11] MEDS ORDERED: cloNIDine 0.2 MG TAB PO ONE (17:07)
[2019-08-11] MEDS ORDERED: diphenhydrAMINE 25 MG/10 ML ORAL LIQUID PO ONE (17:27)
[2019-08-11 18:11] LABS: Hematocrit 33.5 % (30.3-42.9); Hemoglobin 11.3 gm/dl (10.1-14.3); Mean Corpuscular HGB Conc 34 % (30-34); Mean Corpuscular Volume 90 fl (79-97); Red Blood Count 3.73 M/mm3 (3.65-5.03); Red Cell Distribution Width 14.9 % (13.2-15.2)
[2019-08-11 18:25] LABS: Albumin 4.5 g/dL (3.9-5); Calcium 10.4 mg/dL (8.4-10.2)
[2019-08-11 19:00] LABS: Platelet Count 87 K/mm3 (140-440)
[2019-08-11 19:46] VITALS: BP 168/97
== END 2019-08-11 19:46 | disposition home or self-care (01) ==
LOC: ED 16:34
DX: I13.2 Hypertensive heart and chronic kidney disease with heart failure and with stage 5 chronic kidney disease, or end stage renal disease (principal); I50.9 Heart failure, unspecified; N18.6 End stage renal disease; K21.9 Gastro-esophageal reflux disease without esophagitis; J44.9 Chronic obstructive pulmonary disease, unspecified; L29.9 Pruritus, unspecified; Z88.5 Allergy status to narcotic agent; Z99.2 Dependence on renal dialysis; Z79.899 Other long term (current) drug therapy; Z79.82 Long term (current) use of aspirin
CPT/HCPCS: 36415; 80053; 85027; 99283; Q0163

== ENCOUNTER 2020-02-02 22:14 | Emergency (ER) | payer MEDICARE ==
--- NOTE | 2020-02-02 23:33 | Emergency Department Report ---
Chief Complaint: High BP Stated Complaint: ELEVATED BLOOD PRESSURE Time Seen by Provider: 02/02/20 22:29 - HPI History of Present Illness: Patient is a 59-year-old [place] female with past medical history of hypertension and dialysis who had dialysis today and is complaining of elevated blood pressure. Patient states her only symptom is some mild dizziness but she denies chest pain shortness of breath or focal neurological deficit. Patient took a 0.1 mg clonidine prior to arrival. - ROS Review of Systems: Of the systems are reviewed and are negative - Exam Vital Signs: Vital Signs 02/02/20 02/02/20 02/02/20 22:17 22:37 23:09 Temperature 98.2 F Pulse Rate 92 H 75 80 Respiratory 19 19 13 Rate Blood Pressure 268/112 Blood Pressure 215/112 156/86 [Right] O2 Sat by Pulse 98 100 99 Oximetry Physical Exam: Patient is alert and oriented x3 in no acute distress. Lungs are clear to auscultation and her heart tones are normal. Abdomen soft nontender. Patient has a normal gross neurological exam. MSE screening note: Focused history and physical exam performed. Due to findings the following was ordered: ED Medical Decision Making - Medical Decision Making Patient was placed on a monitor and her blood pressure naturally dropped on its own. No intervention was needed. ED Disposition for MSE Clinical Impression: Hypertensive urgency Disposition: Z-07 MED SCREENING EXAM-LEFT Is pt being admited?: No Does the pt Need Aspirin: No Condition: Stable Instructions: Hypertension (ED) Referrals: PRIMARY CARE [Primary Care Provider] - 3-5 Days Time of Disposition: 23:33
[2020-02-03 00:45] VITALS: BP 152/81
== END 2020-02-03 00:45 | disposition left against medical advice (07) ==
LOC: ED 22:14
DX: I16.0 Hypertensive urgency (principal); R42 Dizziness and giddiness; Z88.8 Allergy status to other drugs, medicaments and biological substances
CPT/HCPCS: 99283

== ENCOUNTER 2020-06-13 10:43 | Emergency (ER) | payer MEDICARE ==
--- NOTE | 2020-06-13 10:59 | Emergency Department Report ---
ED General Adult HPI - General Chief complaint: Neuro Symptoms/Deficit Stated complaint: GENERAL NUMBNESS Time Seen by Provider: 06/13/20 10:53 Source: patient, EMS Mode of arrival: Stretcher Limitations: Language Barrier - History of Present Illness Initial comments: Patient is 60 years old female with history of end-stage renal disease on hemodialysis, hypertension, congestive heart failure and COPD. Patient brought to the emergency room via EMS from home for evaluation of generalized numbness and tingling sensation and diffuse joint pain for the last few days. Patient daughter also stated that she noticed that for the last 2 days her speech is not correct. Patient denied any focal weakness, focal numbness or tingling sensation. She denied any headache, chest pain, shortness of breath, fever, chills, cough, nausea or vomiting. Patient also denied any visual changes or ataxia. Patient stated that she had dialysis yesterday. Stroke scale is 0. - Related Data Home Medications Medication Instructions Recorded Confirmed Last Taken Sertraline [Zoloft] 1 tab PO DAILY 02/22/16 02/18/19 02/17/19 21:00 Albuterol Mdi (or & Nicu Only) 2 puff IH QID PRN 02/17/19 02/18/19 02/17/19 09:00 [ProAir HFA Inhaler] AtorvaSTATin [Lipitor] 20 mg PO QHS 02/17/19 02/18/19 02/17/19 21:00 Dexlansoprazole [Dexilant] 60 mg PO QDAY 02/17/19 02/18/19 02/16/19 09:00 Fluticasone (Nf) [Flovent 220 2 puff IH BID 02/17/19 02/18/19 02/17/19 09:00 MCG/PUFF HFA] Loratadine (Nf) [Claritin (Nf)] 10 mg PO DAILY 02/17/19 02/18/19 02/17/19 10:00 Pregabalin [Lyrica] 50 mg PO DAILY 02/17/19 02/17/19 Unknown Tadalafil [Cialis] 20 mg PO BID 02/17/19 02/18/19 Unknown Zolpidem [Ambien] 10 mg PO QHS 02/17/19 02/18/19 02/17/19 21:00 hydrOXYzine HCL [Atarax] 25 mg PO Q6HR PRN 02/17/19 02/18/19 02/17/19 12:00 Previous Rx's Medication Instructions Recorded Last Taken Type ALBUTEROL NEB's [Proventil 0.083% 2.5 mg IH TID PRN #120 nebu 09/25/17 02/18/19 07:55 Rx NEBS] Aspirin EC [Halfprin EC] 81 mg PO QDAY #30 tablet. 02/23/19 Unknown Rx Ondansetron (Nf) [Zofran TAB] 8 mg PO Q8HR PRN #14 tablet 03/04/19 Unknown Rx Promethazine [Phenergan] 25 mg PO Q6HR PRN #10 tab 03/04/19 Unknown Rx oxyCODONE /ACETAMINOPHEN [Percocet 1 tab PO Q4H PRN #10 tablet 03/04/19 Unknown Rx 5/325 mg] Ondansetron [Zofran Odt] 4 mg PO Q8HR PRN #14 tab.rapdis 06/13/20 Unknown Rx traMADoL [Ultram 50 MG tab] 50 mg PO Q4HR PRN #14 tablet 06/13/20 Unknown Rx Allergies Allergy/AdvReac Type Severity Reaction Status Date / Time heparin Allergy Intermediate Itching Verified 02/17/19 13:44 lisinopril AdvReac Mild COUGH Verified 02/17/19 13:44 ED Review of Systems ROS: Stated complaint: GENERAL NUMBNESS Other details as noted in HPI Comment: All other systems reviewed and negative Constitutional: denies: chills, fever Respiratory: denies: cough, shortness of breath Cardiovascular: denies: chest pain, palpitations Gastrointestinal: denies: abdominal pain, nausea, vomiting Musculoskeletal: arthralgia, myalgia. denies: back pain Neurological: numbness, paresthesias. denies: headache, weakness, confusion, abnormal gait ED Past Medical Hx - Past Medical History Hx Hypertension: Yes Hx Heart Attack/AMI: No Hx Congestive Heart Failure: Yes Hx Diabetes: No Hx Deep Vein Thrombosis: No Hx GERD: Yes (SOMETIMES) Hx Liver Disease: No Hx Renal Disease: Yes Hx Sickle Cell Disease: No Hx Arthritis: Yes Hx Kidney Stones: No Hx Asthma: No Hx COPD: Yes (3L O2) Hx HIV: No Additional medical history: dialysis M, W, F - Surgical History Hx Coronary Stent: No Hx Open Heart Surgery: No Hx Pacemaker: Yes Hx Internal Defibrillator: No Hx Cholecystectomy: Yes Hx Appendectomy: No - Social History Smoking Status: Never Smoker - Medications Home Medications: Home Medications Medication Instructions Recorded Confirmed Last Taken Type Sertraline [Zoloft] 1 tab PO DAILY 02/22/16 02/18/19 02/17/19 21:00 History ALBUTEROL NEB's [Proventil 0.083% 2.5 mg IH TID PRN #120 nebu 09/25/17 02/18/19 02/18/19 07:55 Rx NEBS] Albuterol Mdi (or & Nicu Only) 2 puff IH QID PRN 02/17/19 02/18/19 02/17/19 09:00 History [ProAir HFA Inhaler] AtorvaSTATin [Lipitor] 20 mg PO QHS 02/17/19 02/18/19 02/17/19 21:00 History Dexlansoprazole [Dexilant] 60 mg PO QDAY 02/17/19 02/18/19 02/16/19 09:00 History Fluticasone (Nf) [Flovent 220 2 puff IH BID 02/17/19 02/18/19 02/17/19 09:00 History MCG/PUFF HFA] Loratadine (Nf) [Claritin (Nf)] 10 mg PO DAILY 02/17/19 02/18/19 02/17/19 10:00 History Pregabalin [Lyrica] 50 mg PO DAILY 02/17/19 02/17/19 Unknown History Tadalafil [Cialis] 20 mg PO BID 02/17/19 02/18/19 Unknown History Zolpidem [Ambien] 10 mg PO QHS 02/17/19 02/18/19 02/17/19 21:00 History hydrOXYzine HCL [Atarax] 25 mg PO Q6HR PRN 02/17/19 02/18/19 02/17/19 12:00 History Aspirin EC [Halfprin EC] 81 mg PO QDAY #30 tablet. 02/23/19 Unknown Rx Ondansetron (Nf) [Zofran TAB] 8 mg PO Q8HR PRN #14 tablet 03/04/19 Unknown Rx Promethazine [Phenergan] 25 mg PO Q6HR PRN #10 tab 03/04/19 Unknown Rx oxyCODONE /ACETAMINOPHEN [Percocet 1 tab PO Q4H PRN #10 tablet 03/04/19 Unknown Rx 5/325 mg] Ondansetron [Zofran Odt] 4 mg PO Q8HR PRN #14 tab.rapdis 06/13/20 Unknown Rx traMADoL [Ultram 50 MG tab] 50 mg PO Q4HR PRN #14 tablet 06/13/20 Unknown Rx ED Physical Exam - General Limitations: Language Barrier General appearance: alert, in no apparent distress - Head Head exam: Present: atraumatic, normocephalic, normal inspection - Eye Eye exam: Present: normal appearance - ENT ENT exam: Present: normal exam, normal orophraynx, mucous membranes moist - Neck Neck exam: Present: normal inspection, full ROM. Absent: tenderness, meningismus, lymphadenopathy, thyromegaly - Respiratory Respiratory exam: Present: normal lung sounds bilaterally - Cardiovascular Cardiovascular Exam: Present: regular rate, normal rhythm, normal heart sounds - GI/Abdominal GI/Abdominal exam: Present: soft, normal bowel sounds. Absent: distended, tenderness, guarding, rebound, rigid, organomegaly, mass, bruit, pulsatile mass, hernia - Extremities Exam Extremities exam: Present: normal inspection, full ROM, normal capillary refill. Absent: pedal edema, calf tenderness - Back Exam Back exam: Present: normal inspection, full ROM. Absent: CVA tenderness (R), CVA tenderness (L), muscle spasm, paraspinal tenderness, vertebral tenderness - Neurological Exam Neurological exam: Present: alert, oriented X3, CN II-XII intact, reflexes norm al. Absent: motor sensory deficit - Psychiatric Psychiatric exam: Present: normal mood - Skin Skin exam: Present: warm, intact, normal color ED Course Vital Signs 06/13/20 06/13/20 06/13/20 11:11 12:01 12:16 Temperature 98.1 F Pulse Rate 97 H 82 Respiratory 12 12 11 L Rate Blood Pressure 159/84 166/83 O2 Sat by Pulse 100 99 98 Oximetry 06/13/20 06/13/20 06/13/20 12:30 12:46 13:00 Temperature Pulse Rate 80 76 73 Respiratory 12 13 17 Rate Blood Pressure 166/83 166/83 160/79 O2 Sat by Pulse 93 95 97 Oximetry 06/13/20 06/13/20 06/13/20 13:16 13:30 13:43 Temperature Pulse Rate 75 81 Respiratory 16 10 L 18 Rate Blood Pressure 160/79 160/79 O2 Sat by Pulse 96 98 Oximetry 06/13/20 06/13/20 06/13/20 13:44 13:46 14:00 Temperature Pulse Rate 81 89 Respiratory 18 14 14 Rate Blood Pressure 160/79 220/98 O2 Sat by Pulse 94 96 Oximetry 06/13/20 06/13/20 06/13/20 14:16 14:30 14:46 Temperature Pulse Rate 87 82 82 Respiratory 10 L 12 13 Rate Blood Pressure 220/98 220/98 220/98 O2 Sat by Pulse 97 94 94 Oximetry 06/13/20 06/13/20 06/13/20 15:00 15:16 15:30 Temperature Pulse Rate 83 82 82 Respiratory 10 L 12 10 L Rate Blood Pressure 174/87 174/87 174/87 O2 Sat by Pulse 95 99 96 Oximetry 06/13/20 15:46 Temperature Pulse Rate 81 Respiratory 9 L Rate Blood Pressure 174/87 O2 Sat by Pulse 95 Oximetry ED Medical Decision Making - Lab Data Result diagrams: 06/13/20 11:29 06/13/20 11:29 - EKG Data -: EKG Interpreted by [place] EKG shows normal: sinus rhythm Rate: normal - EKG Data Interpretation: no acute changes - Radiology Data Radiology results: report reviewed - Medical Decision Making Patient is 60 years old female with history of end-stage renal disease on hemodialysis, hypertension, congestive heart failure and COPD. Patient brought to the emergency room via EMS from home for evaluation of generalized numbness and tingling sensation and diffuse joint pain for the last few days. Patient daughter also stated that she noticed that for the last 2 days her speech is not correct. Patient denied any focal weakness, focal numbness or tingling sensation. She denied any headache, chest pain, shortness of breath, fever, chills, cough, nausea or vomiting. Patient also denied any visual changes or ataxia. Patient stated that she had dialysis yesterday. Stroke scale is 0. Patient remained stable in the emergency room. Patient is complaining of myalgia and arthralgia and she received morphine 2 mg IV and stated that improved her pain a lot. Labs reviewed and is unremarkable except for her c hronic kidney failure with a stable potassium of 4.0. CT brain is unremarkable. Chest x-ray is negative for acute finding. There is no clinical evidence of stroke. Patient given a prescription for tramadol and advised to follow-up with her primary care physician in the next 2 to 3 days and to follow-up with her dialysis as scheduled. Patient also advised to return to the ER if she develop any new symptoms. Critical care attestation.: If time is entered above; I have spent that time in minutes in the direct care of this critically ill patient, excluding procedure time. ED Disposition Clinical Impression: Acute pain, Numbness Disposition: DC-01 TO HOME OR SELFCARE Is pt being admited?: No Condition: Stable Instructions: Osteoarthritis (ED), Paresthesia (ED) Prescriptions: traMADoL [Ultram 50 MG tab] 50 mg PO Q4HR PRN #14 tablet PRN Reason: Pain Ondansetron [Zofran Odt] 4 mg PO Q8HR PRN #14 tab.rapdis PRN Reason: Nausea And Vomiting Referrals: PRIMARY CARE,MD [Primary Care Provider] - 3-5 Days
--- NOTE | 2020-06-13 11:48 | XRay Report ---
CHEST 1 VIEW 06/13/2020 10:41 AM INDICATION / CLINICAL INFORMATION: stroke. COMPARISON: 02/19/2019 FINDINGS: SUPPORT DEVICES: Cardiac pacemaker appears appropriately positioned. HEART / MEDIASTINUM: Stable mild cardiomegaly. LUNGS / PLEURA: No significant pulmonary or pleural abnormality. No pneumothorax. ADDITIONAL FINDINGS: No significant additional findings. IMPRESSION: 1. No acute findings. Signer Name: Haresh Carmen MD Signed: 06/13/2020 11:44 AM Workstation Name: [id number]
[2020-06-13 11:49] LABS: Basophils # (Auto) 0.1 K/mm3 (0.0-0.1); Basophils % (Auto) 1.8 % (0.0-1.8); Eosinophils % (Auto) 1.1 % (0.0-4.3); Hematocrit 38.8 % (30.3-42.9); Lymphocytes # (Auto) 0.9 K/mm3 (1.2-5.4); Lymphocytes % (Auto) 21.6 % (13.4-35.0); Mean Corpuscular HGB Conc 34 % (30-34); Mean Corpuscular Volume 96 fl (79-97); Monocytes # (Auto) 0.4 K/mm3 (0.0-0.8); Monocytes % (Auto) 9.6 % (0.0-7.3); Platelet Count 139 K/mm3 (140-440); Red Blood Count 4.04 M/mm3 (3.65-5.03); Red Cell Distribution Width 18.1 % (13.2-15.2)
[2020-06-13 12:01] LABS: INR 0.94 (0.87-1.13)
[2020-06-13 12:02] LABS: Partial Thromboplastin Time 30.8 Sec. (24.2-36.6); Thrombin Time 15.5 Sec. (15.1-19.6)
[2020-06-13 12:17] LABS: Alanine Aminotransferase 10 units/L (7-56); Albumin 4.3 g/dL (3.9-5); Blood Urea Nitrogen 35 mg/dL (7-17); Calcium 10.3 mg/dL (8.4-10.2); Creatine Kinase MB 1.2 ng/mL (0.0-4.0); Hemolysis Index 6
--- NOTE | 2020-06-13 12:22 | Cat Scan Report ---
NONENHANCED CT SCAN OF THE HEAD: INDICATION / CLINICAL INFORMATION: 60 years Female; Stroke symptoms. TECHNIQUE: Routine CT head without contrast. All CT scans at this location are performed using CT dos e reduction for ALARA by means of automated exposure control. COMPARISON: CT of the head from 03/13/2018 FINDINGS: BRAIN / INTRACRANIAL CONTENTS: No acute hemorrhage, mass effect, midline shift, hydrocephalus, or acu te, large territorial infarct. No chronic infarct or focal atrophy. Low-attenuation white matter lesi ons are seen probably due to chronic small vessel disease. Mild cortical involution CRANIOCERVICAL JUNCTION: No significant abnormality. ORBITS: No significant abnormality of visualized orbits. SINUSES / MASTOIDS: No significant abnormality of the visualized paranasal sinuses or mastoid air julien ls. ADDITIONAL FINDINGS: Dense calcification in the mid basilar artery; remains unchanged IMPRESSION: No intracerebral hemorrhage no acute territorial infarction; low-attenuation white matter lesions due to chronic small vessel disease Signer Name: Osmin Clark MD Signed: 06/13/2020 12:17 PM Workstation Name: [id number]
[2020-06-13 12:29] LABS: BUN/Creatinine Ratio 4; Bilirubin,Direct < 0.2 mg/dL (0-0.2)
[2020-06-13 12:57] LABS: Chol/HDL Ratio 3.48 %; HDL Cholesterol 64 mg/dL (40-59); LDL Cholesterol,Direct 146 mg/dL (50-130)
[2020-06-13] MEDS ORDERED: ACETAMINOPHEN 500 MG TAB ONE (13:35)
[2020-06-13] MEDS ORDERED: ACETAMINOPHEN 500 MG TAB PO ONE ×2 (13:40→13:42)
[2020-06-13] MEDS ORDERED: ONDANSETRON 4 MG/2 ML INJ ONE (14:03)
[2020-06-13] MEDS ORDERED: MORPHINE 2 MG/1 ML INJ ONE (14:03)
[2020-06-13 15:50] VITALS: BP 174/87
== END 2020-06-13 16:58 | disposition home or self-care (01) ==
LOC: ED 10:43
DX: M25.50 Pain in unspecified joint (principal); R20.2 Paresthesia of skin; R20.0 Anesthesia of skin; I11.0 Hypertensive heart disease with heart failure; I50.9 Heart failure, unspecified; K21.9 Gastro-esophageal reflux disease without esophagitis; N18.6 End stage renal disease; J44.9 Chronic obstructive pulmonary disease, unspecified; Z99.2 Dependence on renal dialysis; Z90.49 Acquired absence of other specified parts of digestive tract; Z79.899 Other long term (current) drug therapy; Z88.6 Allergy status to analgesic agent
CPT/HCPCS: 36415; 70450; 71045; 80048; 80061; 80076; 82550; 82553; 82962; 84484; 85025; 85610; 85670; 85730; 93005; 99285; J2270; J2405